=== PATIENT | female | born 1965 | race American Indian/Alaskan Native ===

== ENCOUNTER 2016-12-04 00:19 | Emergency (ER) | payer MEDICARE, MEDICAID ==
[2016-12-04 00:20] VITALS: PULSE 98
[2016-12-04 00:25] VITALS: BMI 32.4
[2016-12-04 00:29] VITALS: TEMP 97.9
--- NOTE | 2016-12-04 01:05 | ED PDOC ---
Arrival/HPI - General Chief Complaint: Pain, Chronic Time Seen by Provider: 12/04/16 00:35 Historian: Patient - History of Present Illness Narrative History of Present Illness (Text): 12/04/16 01:05 A 51 year old female, whose past medical history includes lupus, asthma and cardiomyopathy, presents to the emergency department complaining of body pains. 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 Notes she takes Toradol for pain. Patient also reports water retention but denies any chest pain or other complaints at this time. Symptom Onset: Sudden Symptom Course: Unchanged Activities at Onset: Rest Context: Home Past Medical History - Provider Review Nursing Documentation Reviewed: Yes - Past History Past History: Non-Contributing - Infectious Disease Hx of Infectious Diseases: None - Tetanus Immunization Tetanus Immunization: Unknown - Past Medical History Past Medical History: Non-Contributing - Cardiac Hx Cardiac Disorders: Yes (cardiomyopathy) Hx Congestive Heart Failure: Yes Other/Comment: on Primacor drip - Pulmonary Hx Respiratory Disorders: Yes (pe) Hx Asthma: Yes Hx Pneumonia: Yes (07-26-15) Other/Comment: h/o intubation - Neurological HX Cerebrovascular Accident: Yes (16 ys ago, no residual) - HEENT Hx HEENT Disorder: Yes (eyeglasses, seasonal allergies) - Renal Hx Renal Disorder: No - Endocrine/Metabolic Hx Endocrine Disorders: Yes Hx Systemic Lupus Erythematosus: Yes - Hematological/Oncological Hx Blood Transfusions: Yes Hx Blood Transfusion Reaction: No - Integumentary Hx Dermatological Disorder: No - Musculoskeletal/Rheumatological Hx Falls: Yes (past) - Gastrointestinal Hx Gastroesophageal Reflux: Yes - Genitourinary/Gynecological Hx Sexually Transmitted Diseases: Yes - Psychiatric Hx Anxiety: Yes Hx Depression: Yes Hx Panic Disorder: Yes Hx Substance Use: No - Past Surgical History Past Surgical History: No Previous - Surgical History Other/Comment: breast biopsy. Right upper arm PICC -- on primacor drip 12/04/2016 - Anesthesia Hx Anesthesia Reactions: No Hx Malignant Hyperthermia: No - Suicidal Assessment Feels Threatened In Home Enviroment: No Family/Social History - Physician Review Nursing Documentation Reviewed: Yes Family/Social History: No Known Family HX Smoking Status: Current Some Days Smoker Hx Alcohol Use: No Hx Substance Use: No Hx Substance Use Treatment: No Allergies/Home Meds Allergies/Adverse Reactions: Allergies oxycodone Allergy (Verified 03/04/16 13:12) DIZZINESS tramadol Allergy (Verified 03/04/16 13:12) DIZZINESS Home Medications: Home Meds Medication Instructions Recorded Confirmed Warfarin [Coumadin] 2 mg PO DAILY 11/03/15 12/04/16 ALPRAZolam [Xanax] 1 tab PO DAILY PRN 12/04/16 12/04/16 Albuterol HFA [Ventolin HFA 90 1 puff IH Q4H 12/04/16 12/04/16 mcg/actuation (8 g)] Bumetanide [Bumex] 1 tab PO Q12H 12/04/16 12/04/16 Cholecalciferol [Vitamin D 1000 IU] 1 tab PO DAILY 12/04/16 12/04/16 Famotidine [Pepcid] 1 tab PO DAILY 12/04/16 12/04/16 Folic Acid [Folic Acid] 1 tab PO DAILY 12/04/16 12/04/16 Hydrocortisone [Cortef] 1 tab PO BID 12/04/16 12/04/16 Isoniazid [Niazid] 1 tab PO DAILY 12/04/16 12/04/16 Loratadine [Claritin] 1 tab PO DAILY 12/04/16 12/04/16 Metoprolol Succinate [Toprol XL] 1 tab PO DAILY 12/04/16 12/04/16 Milrinone 20mg/100ml D5W [Primacor 1 ml IV DAILY 12/04/16 12/04/16 20mg/100ml D5W] Review of Systems - Physician Review All systems were reviewed & negative as marked: Yes - Review of Systems Constitutional: Other (body pains) Cardiovascular: absent: Chest Pain Physical Exam Vital Signs Reviewed: Yes Vital Signs Temp Pulse Resp BP Pulse Ox 12/04/16 04:16 67 16 110/70 93 L 12/04/16 00:29 97.9 F 83 20 103/53 L 96 Temperature: Afebrile Blood Pressure: Hypotensive Pulse: Regular Respiratory Rate: Normal Appearance: Positive for: Well-Appearing, Non-Toxic, Comfortable Pain Distress: None Mental Status: Positive for: Alert and Oriented X 3 - Systems Exam Head: Present: Atraumatic, Normocephalic Pupils: Present: PERRL Extroacular Muscles: Present: EOMI Conjunctiva: Present: Normal Mouth: Present: Moist Mucous Membranes Neck: Present: Normal Range of Motion Respiratory/Chest: Present: Clear to Auscultation, Good Air Exchange. No: Respiratory Distress, Accessory Muscle Use Cardiovascular: Present: Regular Rate and Rhythm, Normal S1, S2. No: Murmurs Abdomen: Present: Normal Bowel Sounds. No: Tenderness, Distention, Peritoneal Signs Back: Present: Normal Inspection Upper Extremity: Present: Normal Inspection. No: Cyanosis, Edema Lower Extremity: Present: NORMAL PULSES, Normal ROM, Swelling (slight). No: Edema Neurological: Present: GCS=15, CN II-XII Intact, Speech Normal Skin: Present: Warm, Dry, Normal Color. No: Rashes Psychiatric: Present: Alert, Oriented x 3, Normal Insight, Normal Concentration Medical Decision Making ED Course and Treatment: 12/04/16 01:02 Impression: A 51 year old female with body pains. Differential Diagnosis included but are not limited to: Plan: -- EKG -- chest xray -- labs -- Toradol -- Reassess and disposition Prior Visits: Notes and results from previous visits were reviewed. Patient last reported to the emergency department on 07/02/16 for evaluation of b /l breast pain and swelling. Patient was admitted to hospital. Progress Notes: chest xray: no active disease, interpreted by me. EKG: Ordered, reviewed, and independently interpreted the EKG. Rate : 64 BPM Rhythm : NSR Interpretation : occasional PVCs, nonspecific ST segment changes pt feels better after toradol wants to go home will dc 12/08/16 20:11 - Lab Interpretations Lab Results: 12/04/16 01:24 12/04/16 01:24 Lab Results 12/04/16 01:24: Sodium 140, Chloride 101, Potassium 3.8, Carbon Dioxide 26, Anion Gap 17, BUN 23 H, Creatinine 1.1, Est GFR ( Amer) > 60, Est GFR ( Non-Af Amer) 53, Random Glucose 126 H, Calcium 9.2, Total Bilirubin 0.4, AST 33 , ALT 36, Alkaline Phosphatase 82, Lactate Dehydrogenase 612, Total Creatine Kinase 23 L, Troponin I < 0.01 D, NT-Pro-B Natriuret Pep 3950 H, Total Protein 8.3, Albumin 4.2, Globulin 4.1, Albumin/Globulin Ratio 1.0 L 12/04/16 01:24: pO2 75 H, VBG pH 7.41, VBG pCO2 44.0, VBG HCO3 27.9, VBG Total CO2 29.3 H, VBG O2 Sat (Calc) 97.2 H, VBG Base Excess 2.7 H, VBG Potassium 3.8, Sodium 138.0, Chloride 102.0, Glucose 136 H, Lactate 2.2 H, FiO2 21.0, Venous Blood Potassium 3.8 12/04/16 01:24: WBC 9.2 D, RBC 5.09, Hgb 12.8, Hct 41.1, MCV 80.7, MCH 25.1, MCHC 31.1, RDW 19.2 H, Plt Count 328, MPV 10.5, Gran % 71.6 H, Lymph % (Auto) 19.3 L, [place] % (Auto) 7.9 H, Eos % (Auto) 1.1 L, Baso % (Auto) 0.1, Gran # 6.62 H, Lymph # 1.8, [place] # 0.7 H, Eos # 0.1, Baso # 0.01 I have reviewed the lab results: Yes - RAD Interpretation Radiology Orders: 12/04/16 00:51 CHEST PORTABLE [RAD] Stat - EKG Interpretation Interpreted by ED Physician: Yes Type: 12 lead EKG - Medication Orders Current Medication Orders: Discontinued Medications Ketorolac Tromethamine (Toradol) 30 mg IVP ONCE ONE Stop: 12/04/16 00:52 Last Admin: 12/04/16 01:31 Dose: 30 mg - Scribe Statement The provider has reviewed the documentation as recorded by the Gladis Grewal Provider Scribe Attestation: All medical record entries made by the Gladis were at my direction and personally dictated by me. I have reviewed the chart and agree that the record accurately reflects my personal performance of the history, physical exam, medical decision making, and the department course for this patient. I have also personally directed, reviewed, and agree with the discharge instructions and disposition. Disposition/Present on Arrival - Present on Arrival Any Indicators Present on Arrival: No History of DVT/PE: No History of Uncontrolled Diabetes: No Urinary Catheter: No History of Decub. Ulcer: No History Surgical Site Infection Following: None - Disposition Have Diagnosis and Disposition been Completed?: Yes Diagnosis: Intractable pain Disposition: HOME/ ROUTINE Disposition Time: 04:25 Condition: GOOD Discharge Instructions (ExitCare): Connective Tissue Disorders (ED) Prescriptions: Acetaminophen with Codeine [Tylenol with Codeine #3 Tablet] 1 each PO QID #10 tablet Referrals: Ilia Maxwell MD [Primary Care Provider] - Follow up with primary
[2016-12-04 01:46] LABS: BASO # 0.01 K/mm3 (0.0-2.0); BASO % 0.1 % (0.0-3.0); EOS # 0.1 (0.0-0.7); EOS % 1.1 % (1.5-5.0); GRAN # 6.62 (1.4-6.5); GRAN % 71.6 % (50.0-68.0); HEMOGLOBIN 12.8 gm/dL (12.0-16.0); LYMPH # 1.8 (1.2-3.4); LYMPH % 19.3 % (22.0-35.0); MEAN CELL VOLUME 80.7 fL (80.0-105.0); MEAN CORPUSCULAR HEMOGLOBIN 25.1 pg (25.0-35.0); MEAN CORPUSCULAR HGB CONC 31.1 g/dl (31.0-37.0); MEAN PLATELET VOLUME 10.5 fl (7.0-11.0); MONO # 0.7 (0.1-0.6); MONO % 7.9 % (1.0-6.0); PLATELET COUNT 328 10^3/uL (120.0-450.0); RBC 5.09 10^6/uL (3.5-6.1); RED CELL DISTRIBUTION WIDTH 19.2 % (11.5-14.5); WHITE BLOOD COUNT 9.2 10^3/ul (4.5-11.0)
[2016-12-04 01:49] LABS: VENOUS BLOOD GAS BASE EXCESS 2.7 mmol/L (0.0-2.0); VENOUS BLOOD GAS PO2 75 mm/Hg (30-55); VENOUS BLOOD PH 7.41 (7.32-7.43)
[2016-12-04 02:04] LABS: ALBUMIN 4.2 g/dL (3.0-4.8); ALT/SGPT 36 U/L (7-56); AST/SGOT 33 U/L (15-39); BLOOD UREA NITROGEN 23 mg/dL (7-21); CALCIUM 9.2 mg/dL (8.4-10.5); GFR AFRICAN-AMERICAN > 60; GFR NON-AFRICAN AMERICAN 53
[2016-12-04 02:16] LABS: B-TYPE NATRIURETIC PEPTIDE 3950 pg/mL (0-450)
[2016-12-04 02:17] LABS: TROPONIN I < 0.01 ng/mL
[2016-12-04 04:17] VITALS: BP 110/70; PULSE 67; RESP 16; O2SAT 93
--- NOTE | 2016-12-04 11:17 | RAD ---
HISTORY: Shortness of breath. COMPARISON: No prior. FINDINGS: LUNGS: No active pulmonary disease. PLEURA: No significant pleural effusion identified, no pneumothorax apparent. CARDIOVASCULAR: No radiographic findings to suggest acute or significant cardiovascular disease. Position/ configuration of pacemaker device: Satisfactory. OSSEOUS STRUCTURES: No significant abnormalities. VISUALIZED UPPER ABDOMEN: Normal. OTHER FINDINGS: None. IMPRESSION: No active disease.
--- NOTE | 2016-12-04 20:15 | CARD ---
APPROVED REPORT EKG Measurement Heart [id number] <Conclusion> Sinus rhythm with occasional premature ventricular complexes Left atrial enlargement Left axis deviation Inferior infarct, age undetermined Prolonged QT Abnormal ECG
== END 2016-12-04 04:26 | disposition home or self-care (01) ==
LOC: ED 00:19
DX: R52 Pain, unspecified (principal); I42.9 Cardiomyopathy, unspecified; I50.9 Heart failure, unspecified; M32.9 Systemic lupus erythematosus, unspecified; K21.9 Gastro-esophageal reflux disease without esophagitis
CPT/HCPCS: 71010; 80053; 82550; 82803; 83615; 83880; 84484; 85025; 93005; 96374; 99283; J1885

== ENCOUNTER 2017-01-11 22:32 | Emergency (ER) | payer MEDICARE, MEDICAID ==
[2017-01-11 22:32] VITALS: PULSE 98
[2017-01-11 22:38] VITALS: BMI 32.5
[2017-01-12] MEDS ORDERED: Sodium Chloride 0.9% 1,000 ML IV STA (01:08)
[2017-01-12] MEDS ORDERED: Morphine 4 mg/ml ISec IVP STA (01:08)
--- NOTE | 2017-01-12 01:13 | ED PDOC ---
Arrival/HPI <Demetrius Fernández - Last Filed: 01/12/17 01:42> - General Historian: Patient <Rush Reddy - Last Filed: 01/12/17 02:34> - General Chief Complaint: Medical Clearance Time Seen by Provider: 01/12/17 00:27 - History of Present Illness Narrative History of Present Illness (Text): 01/12/17 01:27 51 y/o female, pmh including asthma/lupus/chf/pneumonia/cardiomyapathy/history of stroke and on coumadin to keep between 2-3 INR, allergic to oxycodone/ tramadol but not allergic to morphine, c/o flare up of the lupus x 1 day. Pt. stated that she get this flared up and pain monthly, no fever or chills, usually gets better with the morphine and fluid, no chest pain or shortness of breath, no coughing, no rash, no weight changes, no other medical or psychological complaints. (Rush Reddy) Past Medical History - Provider Review Nursing Documentation Reviewed: Yes - Past History Past History: Non-Contributing - Infectious Disease Hx of Infectious Diseases: None - Tetanus Immunization Tetanus Immunization: Unknown - Past Medical History Past Medical History: Non-Contributing - Cardiac Hx Cardiac Disorders: Yes (cardiomyopathy) Hx Congestive Heart Failure: Yes Other/Comment: on Primacor drip - Pulmonary Hx Respiratory Disorders: Yes (pe) Hx Asthma: Yes Hx Pneumonia: Yes Other/Comment: h/o intubation - Neurological HX Cerebrovascular Accident: Yes (16 ys ago, no residual) - HEENT Hx HEENT Disorder: Yes (eyeglasses, seasonal allergies) - Renal Hx Renal Disorder: No - Endocrine/Metabolic Hx Endocrine Disorders: Yes Hx Systemic Lupus Erythematosus: Yes - Hematological/Oncological Hx Blood Transfusions: Yes Hx Blood Transfusion Reaction: No - Integumentary Hx Dermatological Disorder: No - Musculoskeletal/Rheumatological Hx Falls: Yes (past) - Gastrointestinal Hx Gastroesophageal Reflux: Yes - Genitourinary/Gynecological Hx Genitourinary Disorders: No - Psychiatric Hx Anxiety: Yes Hx Depression: Yes Hx Panic Disorder: Yes Hx Substance Use: No - Past Surgical History Past Surgical History: No Previous - Surgical History Other/Comment: breast biopsy. Right upper arm PICC -- on primacor drip 12/04/2016 - Anesthesia Hx Anesthesia Reactions: No Hx Malignant Hyperthermia: No - Suicidal Assessment Feels Threatened In Home Enviroment: No <Rush Reddy Q - Last Filed: 01/12/17 02:34> Family/Social History - Physician Review Nursing Documentation Reviewed: Yes Family/Social History: Unknown Family HX Smoking Status: Current Some Days Smoker Hx Alcohol Use: No Hx Substance Use: No Hx Substance Use Treatment: No <Rush Reddy - Last Filed: 01/12/17 02:34> Allergies/Home Meds <Demetrius Fernández - Last Filed: 01/12/17 01:42> <Rush Reddy - Last Filed: 01/12/17 02:34> Allergies/Adverse Reactions: Allergies oxycodone Adverse Reaction (Verified 01/11/17 23:57) DIZZINESS tramadol Adverse Reaction (Verified 01/11/17 23:57) DIZZINESS Home Medications: Home Meds Medication Instructions Recorded Confirmed Warfarin [Coumadin] 2 mg PO DAILY 11/03/15 01/11/17 ALPRAZolam [Xanax] 1 tab PO Q12 12/04/16 01/12/17 Albuterol HFA [Ventolin HFA 90 1 puff IH Q4H PRN 12/04/16 01/12/17 mcg/actuation (8 g)] Bumetanide [Bumex] 1 tab PO Q12H 12/04/16 01/12/17 Cholecalciferol [Vitamin D 1000 IU] 1 tab PO DAILY 12/04/16 01/12/17 Famotidine [Pepcid] 1 tab PO DAILY 12/04/16 01/12/17 Folic Acid [Folic Acid] 1 tab PO DAILY 12/04/16 01/12/17 Hydrocortisone [Cortef] 1 tab PO BID 12/04/16 01/12/17 Isoniazid [Niazid] 1 tab PO DAILY 12/04/16 01/12/17 Loratadine [Claritin] 1 tab PO DAILY 12/04/16 01/12/17 Metoprolol Succinate [Toprol XL] 1 tab PO DAILY 12/04/16 01/12/17 Milrinone 20mg/100ml D5W [Primacor 1 ml IV DAILY 12/04/16 01/12/17 20mg/100ml D5W] Review of Systems - Review of Systems Constitutional: Fatigue. absent: Fevers Eyes: absent: Vision Changes ENT: absent: Hearing Changes Respiratory: absent: SOB, Cough Cardiovascular: absent: Chest Pain Gastrointestinal: absent: Abdominal Pain, Nausea, Vomiting Musculoskeletal: Myalgias. absent: Arthralgias, Back Pain, Neck Pain, Joint Swelling Skin: absent: Rash, Pruritis Neurological: absent: Headache, Dizziness <Rush Reddy - Last Filed: 01/12/17 02:34> Physical Exam - Systems Exam Head: Present: Atraumatic, Normocephalic Pupils: Present: PERRL Extroacular Muscles: Present: EOMI Conjunctiva: Present: Normal Mouth: Present: Moist Mucous Membranes Neck: Present: Normal Range of Motion Respiratory/Chest: Present: Clear to Auscultation, Good Air Exchange. No: Respiratory Distress, Accessory Muscle Use Cardiovascular: Present: Regular Rate and Rhythm, Normal S1, S2. No: Murmurs Abdomen: Present: Normal Bowel Sounds. No: Tenderness, Distention, Peritoneal Signs Back: Present: Normal Inspection Upper Extremity: Present: Normal Inspection. No: Cyanosis, Edema Lower Extremity: Present: Normal Inspection. No: Edema Neurological: Present: GCS=15, CN II-XII Intact, Speech Normal Skin: Present: Warm, Dry, Normal Color. No: Rashes Psychiatric: Present: Alert, Oriented x 3, Normal Insight, Normal Concentration <Rush Reddy - Last Filed: 01/12/17 02:34> Medical Decision Making <Demetrius Fernández - Last Filed: 01/12/17 01:42> - Lab Interpretations I have reviewed the lab results: Yes Interpretation: No clinic. lab abnormalty <Rush Reddy - Last Filed: 01/12/17 02:34> ED Course and Treatment: 01/12/17 01:12 -labs -IV morphine/solumedrol -Observe and reassess 01/12/17 02:33 -Urine hcg negative -UA negative for UTI -Labs show no acute findings -INR between 2-3 which the patient stated that this is the therapeutic level for her -Pt. feels better, will discharge home. (Rush Reddy) - Lab Interpretations Lab Results: 01/12/17 01:51 01/12/17 01:51 Lab Results 01/12/17 01:51: PT 23.9 H, INR 2.21 H, APTT 33.8 H 01/12/17 01:51: Sodium 139, Potassium Pending, Chloride Pending, Carbon Dioxide Pending, Anion Gap Pending, BUN Pending, Creatinine Pending, Est GFR ( Amer) Pending, Est GFR (Non-Af Amer) Pending, Random Glucose Pending, Calcium Pending, Magnesium Pending, Total Bilirubin Pending, AST Pending, ALT Pending, Alkaline Phosphatase Pending, Total Protein Pending, Albumin Pending, Globulin Pending, Albumin/Globulin Ratio Pending 01/12/17 01:51: WBC 6.4 D, RBC 5.02, Hgb 12.5, Hct 40.4, MCV 80.5, MCH 24.9 L, MCHC 30.9 L, RDW 20.7 H, Plt Count 247, MPV 10.7, Gran % 73.8 H, Lymph % (Auto) 18.2 L, [place] % (Auto) 7.2 H, Eos % (Auto) 0.5 L, Baso % (Auto) 0.3, Gran # 4.71 , Lymph # 1.2, [place] # 0.5, Eos # 0.0, Baso # 0.02 01/12/17 00:45: Urine Color Yellow, Urine Appearance Clear, Urine pH 6.0, Ur Specific [place] 1.015, Urine Protein Negative, Urine Glucose (UA) Negative, Urine Ketones Negative, Urine Blood Large H, Urine Nitrate Negative, Urine Bilirubin Negative, Urine Urobilinogen 0.2, Ur Leukocyte Esterase Negative, Urine RBC 0 - 2, Urine WBC 0 - 2, Ur Epithelial Cells 1 - 3, Urine Bacteria Small - Medication Orders Current Medication Orders: Discontinued Medications Sodium Chloride (Sodium Chloride 0.9%) 1,000 mls @ 999 mls/hr IV .Q1H1M STA Stop: 01/12/17 02:08 Last Admin: 01/12/17 01:50 Dose: 999 mls/hr Methylprednisolone (Solu-Medrol) 125 mg IVP STAT STA Stop: 01/12/17 01:09 Last Admin: 01/12/17 01:50 Dose: 125 mg Morphine Sulfate (Morphine) 4 mg IVP STAT STA Stop: 01/12/17 01:09 Last Admin: 01/12/17 01:49 Dose: 4 mg - PA / CDL B DRIVER / Resident Statement ASHOK has reviewed & agrees with the documentation as recorded. ASHOK has examined the patient and agrees with the treatment plan. <Demetrius Fernández - Last Filed: 01/12/17 01:42> - PA / CDL B DRIVER / Resident Statement ASHOK has reviewed & agrees with the documentation as recorded. <Rush Reddy - Last Filed: 01/12/17 02:34> Disposition/Present on Arrival <Demetrius Fernández - Last Filed: 01/12/17 01:42> - Present on Arrival Any Indicators Present on Arrival: No History of DVT/PE: No History of Uncontrolled Diabetes: No Urinary Catheter: No History of Decub. Ulcer: No History Surgical Site Infection Following: None - Disposition Have Diagnosis and Disposition been Completed?: Yes Disposition Time: 02:19 Patient Plan: Discharge <Rush Reddy - Last Filed: 01/12/17 02:34> - Disposition Diagnosis: Fatigue Disposition: HOME/ ROUTINE Condition: IMPROVED Additional Instructions: Discharge home with education on bed rest, stay hydrated, take tylenol at home for pain as needed, follow up with your own pmd within 2 days, return to the ER for any new or worsening signs or symptoms. Referrals: Ilia Maxwell MD [Primary Care Provider] - Follow up with primary Forms: [employer] ([place]), WORK NOTE
[2017-01-12 01:17] LABS: URINE BILIRUBIN NEGATIVE (NEGATIVE); URINE BLOOD LARGE (NEGATIVE); URINE GLUCOSE (UA) NEGATIVE (NEGATIVE); URINE LEUKOCYTE ESTERASE NEGATIVE Leu/uL (NEGATIVE); URINE NITRATE NEGATIVE (NEGATIVE); URINE PROTEIN NEGATIVE mg/dL (<30 mg/dL); URINE UROBILINOGEN 0.2 E.U./dL (<1 E.U./dL)
[2017-01-12 01:18] LABS: URINE APPEARANCE CLEAR (CLEAR); URINE COLOR YELLOW (YELLOW)
[2017-01-12 01:29] LABS: URINE BACTERIA SMALL (NEG); URINE RBC 0 - 2 /hpf (0-2); URINE WBC 0 - 2 /hpf (0-6)
[2017-01-12 02:14] LABS: BASO # 0.02 K/mm3 (0.0-2.0); BASO % 0.3 % (0.0-3.0); EOS % 0.5 % (1.5-5.0); GRAN # 4.71 (1.4-6.5); GRAN % 73.8 % (50.0-68.0); HEMOGLOBIN 12.5 g/dL (12.0-16.0); LYMPH # 1.2 (1.2-3.4); LYMPH % 18.2 % (22.0-35.0); MEAN CELL VOLUME 80.5 fl (80.0-105.0); MEAN CORPUSCULAR HEMOGLOBIN 24.9 pg (25.0-35.0); MEAN CORPUSCULAR HGB CONC 30.9 g/dl (31.0-37.0); MEAN PLATELET VOLUME 10.7 fl (7.0-11.0); MONO # 0.5 (0.1-0.6); MONO % 7.2 % (1.0-6.0); PLATELET COUNT 247 10^3/uL (120.0-450.0); RBC 5.02 10^6/uL (3.5-6.1); RED CELL DISTRIBUTION WIDTH 20.7 % (11.5-14.5); WHITE BLOOD COUNT 6.4 10^3/ul (4.5-11.0)
[2017-01-12 02:19] LABS: INR 2.21 (0.93-1.08); PARTIAL THROMBOPLASTIN TIME 33.8 Seconds (23.7-30.8); PROTHROMBIN TIME 23.9 Seconds (9.9-11.8)
[2017-01-12 02:30] LABS: ALBUMIN 3.8 g/dL (3.0-4.8); BLOOD UREA NITROGEN 20 mg/dL (7-21); CALCIUM 8.4 mg/dL (8.4-10.5); GFR AFRICAN-AMERICAN > 60; GFR NON-AFRICAN AMERICAN 59
[2017-01-12 02:31] LABS: ALT/SGPT 38 U/L (7-56); AST/SGOT 39 U/L (15-39)
[2017-01-12 02:59] VITALS: BP 117/54; PULSE 76; RESP 16; O2SAT 99
== END 2017-01-12 03:19 | disposition home or self-care (01) ==
LOC: ED 22:32
DX: R53.83 Other fatigue (principal); M32.9 Systemic lupus erythematosus, unspecified; I50.9 Heart failure, unspecified; I42.9 Cardiomyopathy, unspecified
CPT/HCPCS: 80053; 81001; 83735; 85025; 85610; 85730; 96361; 96374; 96375; 99282; J2270; J2930; J7040

== ENCOUNTER 2017-02-17 17:18 | Observation (INO) | payer MEDICARE, MEDICAID ==
[2017-02-17 17:18] VITALS: PULSE 98
[2017-02-17 17:25] VITALS: BMI 32.1
--- NOTE | 2017-02-17 17:42 | ED PDOC ---
Arrival/HPI - General Historian: Patient - History of Present Illness Time/Duration: < week (3 days ) Quality: Aching, Cramping Severity Level: 6 Activities at Onset: Rest Context: Home - General Chief Complaint: Abdominal Pain Time Seen by Provider: 02/17/17 17:19 - History of Present Illness Narrative History of Present Illness (Text): 02/17/17 18:02 This is a 51Y F with PMH lupus, cardiomyopathy on primacor drip, CVA, fibroids came to the Emergency department with abdominal pain and vaginal bleeding x 3 days. The pain is described as cramping/aching in the LLQ and RLQ of her abdomen and radiates down to her legs. Patient states she is sandro-menopausal so her periods are very irregular. At times they are heavy and other times she spots. She reports she has used 10 pads in the past 24hrs. Prior to this she had periods that would last 7 days. She is sexually active with the same partner who she has been with for many years and uses protection. The patient denies n/v/d, numbness/tingling, fever/chills, dysuria or hematuria. She saw her pleasure craft sailor (Dr. Darling) yesterday who performed a pap smear. Of note, she was at [facility] 3 weeks ago for pneumonia and received the pneumovax. She feels shortness of breath today as if she cannot catch her breath. She denies cough, leg edema or sick contacts. (Milady Hinojosa) Past Medical History - Provider Review Nursing Documentation Reviewed: Yes - Travel History Have you recently traveled outside [place] w/in the past 3 mons?: No - Infectious Disease Hx of Infectious Diseases: None - Tetanus Immunization Tetanus Immunization: Unknown - Past Medical History Past Medical History: Non-Contributing - Cardiac Hx Cardiac Disorders: Yes (cardiomyopathy) Hx Congestive Heart Failure: Yes Other/Comment: on Primacor drip - Pulmonary Hx Respiratory Disorders: Yes (pe) Hx Asthma: Yes Hx Pneumonia: Yes Other/Comment: h/o intubation - Neurological HX Cerebrovascular Accident: Yes (16 ys ago, no residual) - HEENT Hx HEENT Disorder: Yes (eyeglasses, seasonal allergies) - Renal Hx Renal Disorder: No - Endocrine/Metabolic Hx Endocrine Disorders: Yes Hx Systemic Lupus Erythematosus: Yes - Hematological/Oncological Hx Blood Transfusions: Yes Hx Blood Transfusion Reaction: No - Integumentary Hx Dermatological Disorder: No - Musculoskeletal/Rheumatological Hx Falls: Yes (past) - Gastrointestinal Hx Gastroesophageal Reflux: Yes - Genitourinary/Gynecological Hx Genitourinary Disorders: No - Psychiatric Hx Anxiety: Yes Hx Depression: Yes Hx Panic Disorder: Yes Hx Substance Use: No - Past Surgical History Past Surgical History: No Previous - Surgical History Other/Comment: breast biopsy. Right upper arm PICC -- on primacor drip 12/04/2016 - Anesthesia Hx Anesthesia Reactions: No Hx Malignant Hyperthermia: No - Suicidal Assessment Feels Threatened In Home Enviroment: No Family/Social History - Physician Review Nursing Documentation Reviewed: Yes Family/Social History: CVA/TIA, Hypertension Smoking Status: Current Some Days Smoker Hx Alcohol Use: No Hx Substance Use: No Hx Substance Use Treatment: No Allergies/Home Meds Allergies/Adverse Reactions: Allergies oxycodone Adverse Reaction (Verified 01/11/17 23:57) DIZZINESS tramadol Adverse Reaction (Verified 02/17/17 17:24) DIZZINESS Home Medications: Home Meds Medication Instructions Recorded Confirmed Warfarin [Coumadin] 2 mg PO DAILY 11/03/15 01/12/17 ALPRAZolam [Xanax] 1 tab PO Q12 12/04/16 01/12/17 Albuterol HFA [Ventolin HFA 90 1 puff IH Q4H PRN 12/04/16 01/12/17 mcg/actuation (8 g)] Bumetanide [Bumex] 1 tab PO Q12H 12/04/16 01/12/17 Famotidine [Pepcid] 1 tab PO DAILY 12/04/16 01/12/17 Folic Acid [Folic Acid] 1 tab PO DAILY 12/04/16 01/12/17 Hydrocortisone [Cortef] 1 tab PO BID 12/04/16 01/12/17 Isoniazid [Niazid] 1 tab PO DAILY 12/04/16 01/12/17 Loratadine [Claritin] 1 tab PO DAILY 12/04/16 01/12/17 Metoprolol Succinate [Toprol XL] 1 tab PO DAILY 12/04/16 01/12/17 Milrinone 20mg/100ml D5W [Primacor 1 ml IV DAILY 12/04/16 01/12/17 20mg/100ml D5W] Cyanocobalamin (Vitamin B-12) 100 mcg PO DAILY 02/17/17 02/17/17 [Vitamin B-12] Review of Systems - Physician Review All systems were reviewed & negative as marked: Yes - Review of Systems Constitutional: Fatigue. absent: Fevers Respiratory: SOB. absent: Cough, Sputum, Wheezing Cardiovascular: Normal. absent: Chest Pain, Palpitations, Edema Gastrointestinal: Abdominal Pain (RLQ, LLQ). absent: Diarrhea, Nausea, Vomiting Genitourinary Female: Vaginal Bleeding. absent: Dysuria, Frequency, Vaginal Discharge Musculoskeletal: Normal. absent: Arthralgias Neurological: Normal. absent: Headache, Dizziness Psychiatric: Normal. absent: Anxiety, Depression Physical Exam Vital Signs Reviewed: Yes Temperature: Afebrile Blood Pressure: Normal Pulse: Bradycardic Respiratory Rate: Normal Appearance: Positive for: Well-Appearing, Non-Toxic, Comfortable Pain Distress: None Mental Status: Positive for: Alert and Oriented X 3 - Systems Exam Head: Present: Atraumatic, Normocephalic Pupils: Present: PERRL Extroacular Muscles: Present: EOMI Conjunctiva: Present: Normal Mouth: Present: Moist Mucous Membranes Neck: Present: Normal Range of Motion Respiratory/Chest: Present: Clear to Auscultation, Good Air Exchange. No: Respiratory Distress, Accessory Muscle Use Cardiovascular: Present: Regular Rate and Rhythm, Normal S1, S2. No: Murmurs Abdomen: Present: Tenderness (RLQ, LLQ and suprapubic), Normal Bowel Sounds. No : Distention, Peritoneal Signs, Rebound, Guarding, Hernias, Mass/Organomegaly Back: Present: Normal Inspection Upper Extremity: Present: Normal Inspection. No: Cyanosis, Edema Lower Extremity: Present: Normal Inspection. No: Edema Neurological: Present: GCS=15, CN II-XII Intact, Speech Normal Skin: Present: Warm, Dry, Normal Color. No: Rashes Psychiatric: Present: Alert, Oriented x 3, Normal Insight, Normal Concentration Vital Signs Temp Pulse Resp BP Pulse Ox 02/17/17 17:43 97.9 F 56 L 16 115/66 100 02/17/17 17:40 97.9 F 56 L 16 115/66 100 Medical Decision Making Re-evaluation Time: 19:16 Reassessment Condition: Improved - Transfer of Care Patient signed out to Dr:: Zelikson Pending Labs:: CBC, CMP, Coag ED Course and Treatment: Seen and examined with resident. 51 y/o F p/w lower abdominal pain and vaginal bleeding, states feels similar to her pain when getting her menstrual period. On exam, lower abdominal tenderness without guarding or rebound. (Omer Sandoval) 02/17/17 18:00 Impression: This is a 51Y F with PMH lupus, cardiomyopathy on primacor drip, CVA, fibroids came to the Emergency department with abdominal pain and vaginal bleeding x 3 days. Plan: -- CBC, CMP, INR/PT, U/A -- Toradol -- CXR -- Reassess and disposition Prior Visits: Notes and results from previous visits were reviewed. Progress Notes: (Milady Hinojosa) - Lab Interpretations Lab Results: Lab Results 02/17/17 18:00: Urine Color Light yellow, Urine Appearance Clear, Urine pH 6.0, Ur Specific [place] 1.010, Urine Protein Negative, Urine Glucose (UA) Negative, Urine Ketones Negative, Urine Blood Negative, Urine Nitrate Negative, Urine Bilirubin Negative, Urine Urobilinogen 0.2, Ur Leukocyte Esterase Negative - RAD Interpretation Radiology Orders: 02/17/17 17:54 CHEST TWO VIEWS (PA/LAT) [RAD] Stat - Medication Orders Current Medication Orders: Discontinued Medications Ketorolac Tromethamine (Toradol) 30 mg IVP STAT STA Stop: 02/17/17 17:55 Disposition/Present on Arrival - Present on Arrival Any Indicators Present on Arrival: Yes History of DVT/PE: Yes History of Uncontrolled Diabetes: No Urinary Catheter: No History Surgical Site Infection Following: None - Disposition Have Diagnosis and Disposition been Completed?: No Disposition Time: 19:16 - Disposition Diagnosis: Abdominal pain Condition: FAIR
[2017-02-17 18:08] LABS: URINE BILIRUBIN NEGATIVE (NEGATIVE); URINE BLOOD NEGATIVE (NEGATIVE); URINE GLUCOSE (UA) NEGATIVE (NEGATIVE); URINE KETONE NEGATIVE (NEGATIVE); URINE LEUKOCYTE ESTERASE NEGATIVE Leu/uL (NEGATIVE); URINE PROTEIN NEGATIVE mg/dL (<30 mg/dL); URINE UROBILINOGEN 0.2 E.U./dL (<1 E.U./dL)
[2017-02-17 18:11] LABS: URINE APPEARANCE CLEAR (CLEAR); URINE COLOR LIGHT YELLOW (YELLOW)
[2017-02-17 19:52] LABS: MEAN CELL VOLUME 83.1 fl (80.0-105.0); MEAN CORPUSCULAR HEMOGLOBIN 25.6 pg (25.0-35.0); MEAN CORPUSCULAR HGB CONC 30.8 g/dl (31.0-37.0); MEAN PLATELET VOLUME 10.7 fl (7.0-11.0); RED CELL DISTRIBUTION WIDTH 19.4 % (11.5-14.5)
--- NOTE | 2017-02-17 19:58 | ED PDOC ---
Physical Exam Vital Signs Reviewed: Yes Vital Signs Temp Pulse Resp BP Pulse Ox 02/17/17 19:34 60 17 118/70 98 02/17/17 17:43 97.9 F 56 L 16 115/66 100 02/17/17 17:40 97.9 F 56 L 16 115/66 100 Temperature: Afebrile Blood Pressure: Normal Pulse: Bradycardic Respiratory Rate: Normal Appearance: Positive for: Well-Appearing Pain Distress: None Mental Status: Positive for: Alert and Oriented X 3 Medical Decision Making ED Course and Treatment: 02/17/17 19:54 51yo female with vaginal bleeding and lower abdominal pain described as cramping. Saw her STEWARD/STEWARD[employer] SECOND Dr. Darling yesterday for a pap smear. 02/17/17 21:39 US shows fibroid uterus pt states she has MCDERMOTT which is different from her previous pt is on milrinone drip has been having intermittent vaginal bleeding, although states she is not bleeding now, and Hb 11.4 which is slightly lower than her usual. 02/17/17 21:[address] Costello, accepted observation to hospitalist service pt aware of and agrees with plan - Lab Interpretations Lab Results: 02/17/17 19:41 02/17/17 19:41 Lab Results 02/17/17 19:45: PT 17.8 H, INR 1.65 H 02/17/17 19:41: Sodium 146, Potassium 4.1, Chloride 105, Carbon Dioxide 31, Anion Gap 14, BUN 13, Creatinine 0.8, Est GFR ( Amer) > 60, Est GFR (Non- Af Amer) > 60, Random Glucose 97, Calcium 8.5, Total Bilirubin 0.3, AST 27, ALT 29, Alkaline Phosphatase 67, Total Protein 7.2, Albumin 3.8, Globulin 3.5, Albumin/Globulin Ratio 1.1 02/17/17 19:41: WBC 7.0, RBC 4.45, Hgb 11.4 L, Hct 37.0, MCV 83.1, MCH 25.6, MCHC 30.8 L, RDW 19.4 H, Plt Count 211, MPV 10.7 02/17/17 18:00: Urine Color Light yellow, Urine Appearance Clear, Urine pH 6.0, Ur Specific [place] 1.010, Urine Protein Negative, Urine Glucose (UA) Negative, Urine Ketones Negative, Urine Blood Negative, Urine Nitrate Negative, Urine Bilirubin Negative, Urine Urobilinogen 0.2, Ur Leukocyte Esterase Negative - RAD Interpretation Radiology Orders: 02/17/17 17:54 CHEST TWO VIEWS (PA/LAT) [RAD] Stat 02/17/17 19:56 TRANSVAGINAL [US] Stat - Medication Orders Current Medication Orders: Discontinued Medications Ketorolac Tromethamine (Toradol) 30 mg IVP STAT STA Stop: 02/17/17 17:55 Last Admin: 02/17/17 19:20 Dose: 30 mg Disposition/Present on Arrival - Present on Arrival Any Indicators Present on Arrival: Yes History of DVT/PE: Yes History of Uncontrolled Diabetes: No Urinary Catheter: No History of Decub. Ulcer: No History Surgical Site Infection Following: None - Disposition Have Diagnosis and Disposition been Completed?: Yes Diagnosis: Dyspnea Disposition: HOSPITALIZED Disposition Time: 21:44 Patient Plan: Observation Patient Problems: Current Active Problems Problem Status Onset Abdominal pain Acute Condition: FAIR Forms: [employer] (Peruvian)
[2017-02-17 20:02] LABS: ALB/GLOB RATIO 1.1 (1.1-1.8); ALKALINE PHOSPHATASE 67 U/L (38-126); ALT/SGPT 29 U/L (7-56); AST/SGOT 27 U/L (14-36); BILIRUBIN,TOTAL 0.3 mg/dL (0.2-1.3); BLOOD UREA NITROGEN 13 mg/dL (7-21); CALCIUM 8.5 mg/dL (8.4-10.5); CARBON DIOXIDE 31 mmol/L (21-33); CHLORIDE 105 mmol/L (98-107); GFR AFRICAN-AMERICAN > 60; GLUCOSE,RANDOM 97 mg/dL (70-110); POTASSIUM 4.1 mmol/L (3.6-5.0); SODIUM 146 mmol/L (132-148); TOTAL PROTEIN 7.2 g/dL (5.8-8.3)
[2017-02-17 20:02] LABS: INR 1.65 (0.93-1.08)
--- NOTE | 2017-02-17 21:22 | US ---
EXAM: US Pelvis Complete, Transabdominal CLINICAL HISTORY: 51 years old, female; Pain; Pelvic pain; Additional info: Vaginal bleeding, fibroids TECHNIQUE: Real-time transabdominal pelvic ultrasound (complete) with image documentation. COMPARISON: There are no prior studies for comparison. FINDINGS: Uterus: The uterus is anteflexed. The uterus measures approximately 6.2 x 3.8 x 4 cm. endometrium measures proximally 4.7 mm in width. Right ovary: Right ovary could not be identified. There are no right adnexal masses Left ovary: Left ovary could not be identified. There are no left adnexal masses Free fluid: There is no free fluid. Bladder: Bladder is incompletely distended which limits evaluation of bladder and pelvis. IMPRESSION: Limited by body habitus and incomplete bladder distention, normal-sized uterus, nonvisualization the ovaries EXAM: US Pelvis, Transvaginal EXAM DATE/TIME: 02/17/2017 7:56 PM CLINICAL HISTORY: 51 years old, female; Pain; Pelvic pain; Additional info: Vaginal bleeding, fibroids TECHNIQUE: Real-time transvaginal pelvic ultrasound (complete) with image documentation. Transvaginal imaging was used for better evaluation of the endometrium and adnexa. COMPARISON: There are no prior studies for comparison. FINDINGS: Uterus: Endometrium measures approximate 4.7 mm in width. There is a 1.4 x 2.4 x 1.7 cm anterior fibroid. There is a 0.8 x 0.4 x 0.9 cm posterior calcification. There is a 0.6 right 0.8 x 0.8 cm posterior fibroid. Right ovary: Right ovary measures approximately 2.41 x 1.63 x 1.44 cm. There are multiple small follicles. There is intraovarian blood flow. Left ovary: Left ovary could not be identified. There is a large amount of bowel gas obscuring the left adnexa. There are no left adnexal masses. Free fluid: There is no free fluid. Bladder: Bladder is empty IMPRESSION: Fibroid uterus; normal right ovary; nonvisualization left ovary due to bowel gas
[2017-02-17 22:16] LABS: TROPONIN I 0.01 ng/mL
[2017-02-17] MEDS ORDERED: Albuterol-Ipratrop 3 mg / 0.5 (3 ml) UD IH PRN (23:15)
[2017-02-17] MEDS ORDERED: Milrinone 20mg/100ml D5W 100 ML IV PRN (23:22)
[2017-02-18] MEDS: Morphine 2 mg/ml ISec IVP PRN ×2 (00:06→05:06)
--- NOTE | 2017-02-18 01:11 | CP.PCM.PN ---
Subjective - Date & Time of Evaluation Date of Evaluation: 02/18/17 Time of Evaluation: 01:11 - Subjective Subjective: # 24 angiocath was inserted in left hand. Objective - Vital Signs/Intake and Output Vital Signs (last 24 hours): Temp Pulse Resp BP Pulse Ox 98.9 F 61 17 115/75 98 02/17/17 23:57 02/17/17 23:57 02/17/17 23:57 02/18/17 00:05 02/17/17 23:57 - Medications Medications: Current Medications Acetaminophen (Tylenol 325mg Tab) 650 mg PO Q4 PRN PRN Reason: Fever >100.4 F Albuterol/Ipratropium (Duoneb 3 Mg/0.5 Mg (3 Ml) Ud) 3 ml IH Q2H PRN PRN Reason: Shortness of Breath Bumetanide (Bumex) 1 mg PO Q12H [facility] Last Admin: 02/18/17 00:41 Dose: Not Given Cyanocobalamin (Vitamin B12 100 Mcg Tab) 100 mcg PO DAILY [facility] Docusate Sodium (Colace) 100 mg PO DAILY [facility] Folic Acid (Folic Acid) 1 mg PO DAILY [facility] Hydrocortisone (Cortef) 20 mg PO BID [facility] Last Admin: 02/18/17 00:41 Dose: Not Given Milrinone Lactate/Dextrose (Primacor 20mg/100ml D5w) 100 mls @ 12.315 mls/hr IV .Q8H8M PRN; Protocol; 0.5 MCG/KG/MIN PRN Reason: TITRATE PER MD ORDER Ketorolac Tromethamine (Toradol) 15 mg IVP Q4H PRN PRN Reason: Pain, moderate (4-7) Loratadine (Claritin) 10 mg PO DAILY [facility] Metoprolol Succinate (Toprol Xl) 25 mg PO DAILY [facility] Morphine Sulfate (Morphine) 2 mg IVP Q4H PRN PRN Reason: Pain, severe (8-10) Last Admin: 02/18/17 00:06 Dose: 2 mg Warfarin Sodium (Coumadin) 0.5 mg PO ONCE ONE PRN Reason: Protocol Stop: 02/18/17 23:05 Last Admin: 02/18/17 00:42 Dose: Not Given Warfarin Sodium (Coumadin) 2 mg PO 1800 [facility] - Labs Labs: PT 17.8 Seconds (9.9-11.8) H 02/17/17 19:45 INR 1.65 (0.93-1.08) H 02/17/17 19:45
--- NOTE | 2017-02-18 03:01 | CP.PCM.HP ---
<MILDRED ROBINS - Last Filed: 02/18/17 03:41> History of Present Illness - History of Present Illness History of Present Illness: Adánsergio Arlet DO PGY1 - Internal Medicine H&P CC: Pelvic pain, SOB 51yo F with PMH of SLE, asthma, PE, CHF 2/2 cardiomyopathy s/p ICD and pacemaker , B/L breast biopsy, non-malignant breast calcifications B/L, GERD, CVA x 2, positive PPD, and fibroids presents for pelvic pain and SOB which she has had intermittently for the past three days. SOB is persistent, not worsened or improved by anything in particular. Denies cough, CP, nasal congestion, REEDER. Pain is constant, sharp, 9/10 in severity, started again this morning, she woke up with it. She tried tylenol at home, which did not help. Pain improved to 7/ 10 after receiving toradol in the ER. Pain does not radiate. She has had this pain before, usually associated with her periods, but it seems worse this time. Patient reports that she is perimenopausal, and has intermittent, irregular bleeding and spotting, and has been bleeding irregularly, but not excessively, the past three days - she required three pads in the past day. She is also complaining of back pain, radiating down to her legs, occasionally to ankles and toes. Back pain is intermittent, worsens with standing, improves with sitting or leaning forward. She has had this back pain for years, though recently worsened. She denies F/C, N/V/D/C, urinary or bowel incontinence, night sweats, dysuria, hematuria. 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 Alejandre ROS: Constitutional: pt denies fever, chills, generalized weakness ENT: pt denies dysphagia, otalgia, hearing deficit, rhinorrhea Eyes: pt denies sudden loss of vision, diplopia, blurred vision MSK: +Back pain pt denies muscle stiffness, joint pain, extremity cramping Cardio: +SOB pt denies heart murmur, CP Pulm: pt denies cough, hemoptysis, wheeze GI: +Abdominal pain pt denies loss of appetite, constipation, melena, n/v/d : pt denies burning on urination, urinary frequency, hematuria, urinary urgency Neuro: pt denies paresis, paresthesia, dizziness, reeder, numbness, tingling Derm: pt denies skin changes, lesions, nail changes Endo: pt denies intolerance to heat/cold, diaphoresis, night sweats, polydipsia Psych: pt denies anxiety, depression, mood changes Present on Admission - Present on Admission Any Indicators Present on Admission: Yes History of DVT/PE: Yes Past Patient History - Infectious Disease Hx of Infectious Diseases: None - Tetanus Immunizations Tetanus Immunization: Unknown - Past Medical History & Family History Past Medical History?: Yes - Past Social History Smoking Status: Current Some Days Smoker - CARDIAC Hx Cardiac Disorders: Yes (cardiomyopathy) Hx Congestive Heart Failure: Yes Other/Comment: on Primacor drip - PULMONARY Hx Respiratory Disorders: Yes (pe) Hx Asthma: Yes Hx Pneumonia: Yes Other/Comment: h/o intubation - NEUROLOGICAL HX Cerebrovascular Accident: Yes (16 ys ago, no residual) - HEENT Hx HEENT Problems: Yes (eyeglasses, seasonal allergies) - RENAL Hx Chronic Kidney Disease: No - ENDOCRINE/METABOLIC Hx Endocrine Disorders: Yes Hx Systemic Lupus Erythematosus: Yes - HEMATOLOGICAL/ONCOLOGICAL Hx Blood Transfusions: Yes Hx Blood Transfusion Reaction: No - INTEGUMENTARY Hx Dermatological Problems: No - MUSCULOSKELETAL/RHEUMATOLOGICAL Hx Falls: Yes (past) - GASTROINTESTINAL Hx Gastroesophageal Reflux: Yes - GENITOURINARY/GYNECOLOGICAL Hx Genitourinary Disorders: No - PSYCHIATRIC Hx Anxiety: Yes Hx Depression: Yes Hx Panic Symptoms: Yes Hx Substance Use: No - SURGICAL HISTORY Other/Comment: breast biopsy. Right upper arm PICC -- on primacor drip 12/04/2016 - ANESTHESIA Hx Anesthesia Reactions: No Hx Malignant Hyperthermia: No Meds Allergies/Adverse Reactions: Allergies Allergy/AdvReac Type Severity Reaction Status Date / Time oxycodone AdvReac DIZZINESS Verified 01/11/17 23:57 tramadol AdvReac DIZZINESS Verified 02/17/17 17:24 Physical Exam - Constitutional Appears: Non-toxic, No Acute Distress - Head Exam Head Exam: ATRAUMATIC, NORMOCEPHALIC - Eye Exam Eye Exam: EOMI, Normal appearance, PERRL - ENT Exam ENT Exam: Mucous Membranes Moist - Neck Exam Neck exam: Negative for: Lymphadenopathy, Thyromegaly - Respiratory Exam Respiratory Exam: Clear to Auscultation Bilateral, NORMAL BREATHING PATTERN. absent: Rales, Rhonchi, Wheezes - Cardiovascular Exam Cardiovascular Exam: RRR, +S1, +S2 - GI/Abdominal Exam GI & Abdominal Exam: Normal Bowel Sounds, Soft Additional comments: moderate b/l LQ and suprapubic tenderness - Extremities Exam Extremities exam: Negative for: calf tenderness, pedal edema Additional comments: PICC line in R antecubital fossa, milrinone pump at bedside - Back Exam Back exam: muscle spasm, paraspinal tenderness (L3-S1, b/l). absent: vertebral tenderness Additional comments: Indeterminate SLR b/l, illicits posterior thigh and calf pain at 45 degrees, but no back pain - Neurological Exam Neurological exam: Alert, CN II-XII Intact, Oriented x3 - Psychiatric Exam Psychiatric exam: Normal Affect, Normal Mood - Skin Skin Exam: Dry, Intact Results - Vital Signs Recent Vital Signs: Last Vital Signs Temp 98.9 F 02/17/17 23:57 Pulse 61 02/17/17 23:57 Resp 17 02/17/17 23:57 BP 115/75 02/18/17 00:05 Pulse Ox 98 02/17/17 23:57 - Labs Result Diagrams: 02/17/17 19:41 02/17/17 19:41 Assessment & Plan - Assessment and Plan (Free Text) Assessment: 51 F with extensive PMH, specifically significant for SLE, PE, asthma, 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 Plan: 1. Pelvic pain - Patient has b/l pelvic pain, which she has had in the past, though currently worse than prior incidences. Likely 2/2 dysmenorrhea 2/2 fibroids - Transvaginal US in ER significant for normal endometrial thickness, and two fibroids - Patient is hemodynamically stable, H/H stable - Tylenol, Toradol, and Morphine for mild/mod/sev pain; colace to prevent constipation 2. SOB - Likely 2/2 deconditioning vs mild exacerbation of severe CHF vs asthma exacerbation vs PE - CXR in ER appears to show mild vascular congestion; pending official read - Patient has history of CHF with LVEF 11% on echo 03/05/2016 - BNP 2750, which is actually slightly better than her baseline - Trop 0.01, patient not complaining of CP, no EKG changes - Patient is on continuous milrinone infusion at home - Given Lasix 20mg once - Duonebs Q2 PRN - Continue milrinone, bumex, loratadine, metoprolol - b/l LE venous duplex ordered to r/o DVT - Cardio (Robert) consulted, appreciate recs 3. Back pain radiating to b/l LE - Likely 2/2 spinal stenosis vs chronic musculoskeletal low back pain, less likely DVT - Lumbar spine CT w/o contrast ordered - B12 level ordered to r/o deficiency as cause of neuropathic pain - Patient reports pain and tenderness in b/l calf; b/l LE venous duplex ordered to r/o DVT considering history of PE and subtherapeutic INR - Pain control as above 4. h/o PE and CVA - Patient on Coumadin 2mg daily at home - Subtherapeutic INR on presentation - Ordered 0.5 mg coumadin once - Recheck daily INR and adjust coumadin as indicated 5. h/o SLE - No acute flare at this time - Continue home hydrocortisone GI/DVT Ppx: Coumadin covers for DVT, protonix for GI Patient seen, discussed, and examined with attending <Karon Costello - Last Filed: 02/18/17 06:30> Results - Vital Signs Recent Vital Signs: Last Vital Signs Temp 97.7 F 02/18/17 06:24 Pulse 72 02/18/17 06:24 Resp 17 02/18/17 06:24 BP 104/64 02/18/17 06:24 Pulse Ox 96 02/18/17 06:24 - Labs Result Diagrams: 02/17/17 19:41 02/17/17 19:41 Attending/Attestation - Attestation I have personally seen and examined this patient.: Yes I have fully participated in the care of the patient.: Yes I have reviewed all pertinent clinical information: Yes Notes (Text): 02/18/17 06:29 Patient was seen when she was in bed # 12 in the ER. Agree with history, physical examination, assessment and plan.
--- NOTE | 2017-02-18 08:30 | RAD ---
HISTORY: SOB COMPARISON: Comparison is made to 12/04/2016 TECHNIQUE: Chest PA and lateral FINDINGS: LUNGS: There is a new opacity seen at the mid to upper right lung. Otherwise no significant interval change in the lungs since the previous exam. PLEURA: No significant pleural effusion identified. No pneumothorax apparent. CARDIOVASCULAR: Cardiomegaly is again noted. Left-sided pacemaker/ AICD is again seen in place. There is right-sided PICC line in place. OSSEOUS STRUCTURES: No significant abnormalities. VISUALIZED UPPER ABDOMEN: Normal. OTHER FINDINGS: None. IMPRESSION: New heterogeneous opacity at the mid to upper right lung may represent a pneumonia. Otherwise no interval change.
[2017-02-18] MEDS ORDERED: [UNRECOGNIZED DRUG - OTHER] IV SCH (09:30)
[2017-02-18] MEDS ORDERED: WATER IV SCH (09:30)
[2017-02-18] MEDS ORDERED: DEXTROSE IV SCH (09:30)
[2017-02-18] MEDS ORDERED: D5W IV SCH (10:00)
[2017-02-18] MEDS ORDERED: MILRINONE 20 MG/100 ML IV SCH (10:00)
--- NOTE | 2017-02-18 10:38 | US ---
HISTORY: Leg pain and swelling. Evaluate for DVT PHYSICIAN(S): Rm Cueto MD. TECHNIQUE: Duplex sonography and color-flow Doppler with graded compression were used to evaluate the deep venous systems of both lower extremities. FINDINGS: The visualized deep venous systems of both lower extremities are sonographically normal and compressible. Normal wave forms and augmentation are seen. There is no sonographic evidence for deep venous thrombosis in the visualized segments of both lower extremities. IMPRESSION: No sonographic evidence for deep venous thrombosis in the visualized segments of both lower extremities.
[2017-02-18] MEDS: Metoprolol Succinate 25 mg XL Tab PO SCH (11:07)
--- NOTE | 2017-02-18 12:33 | CT ---
PROCEDURE: CT Lumbar Spine without contrast HISTORY: Low back pain, r/o spinal stenosis COMPARISON: None. TECHNIQUE: Axial computed tomography images were obtained of the lumbar spine without the use of intravenous contrast. Coronal and sagittal reformatted images were created and reviewed. Radiation dose: Total exam DLP = 669 mGy-cm. This CT exam was performed using one or more of the following dose reduction techniques: Automated exposure control, adjustment of the mA and/or kV according to patient size, and/or use of iterative reconstruction technique. FINDINGS: VERTEBRAE: Unremarkable. No fracture. Normal alignment. DISCS/SPINAL CANAL/NEURAL FORAMINA: L1-2: Unremarkable. L2-3: Unremarkable. L3-4: Unremarkable. L4-5: There is a moderate disc bulge or broad-based protrusion. Axial image 59 series 4 L5-S1: Unremarkable. PARASPINAL SOFT TISSUES: Unremarkable. OTHER FINDINGS: None. IMPRESSION: Moderate disc bulge or broad-based protrusion at L4-5. No significant stenosis. This indents the thecal sac centrally
[2017-02-18] MEDS: Milrinone 20mg/100ml D5W 100 ML IV SCH ×2 (13:30→19:59)
--- NOTE | 2017-02-18 16:49 | CARD ---
APPROVED REPORT EKG Measurement Heart [id number] <Conclusion> Normal sinus rhythm Possible Left atrial enlargement Inferior infarct, age undetermined Prolonged QT
[2017-02-18] MEDS ORDERED: Pneumococcal 23-Valent Vaccine IM ONE (17:27)
--- NOTE | 2017-02-18 20:00 | CON ---
SERVICE: Cardiology. REASON FOR CONSULTATION: Cardiac evaluation; admitted with dyspnea; history of cardiomyopathy, nonischemic, status post AICD; history of CVA in the past. BRIEF CLINICAL HISTORY: This is a 51-year-old female with a past medical history significant for SLE, prior stroke, history of patent foramen ovale, ASD, history of right-sided weakness, on Coumadin, history of AICD, initially placed in 2003 in [place], then patient had it in 2012, generator changed by Dr. Rubalcava at [facility], being followed by Dr. Rubalcava, and has questionable history of AICD infection and most recently implanted on the left side of the chest, admitted with complaint of dyspnea on exertion. The patient at home is on continuous milrinone drip at 0.5 mcg/kg/min, which is delivered every week on Tuesday and the patient is very much concerned about changing her hospital drip because she may have lost this upon discharge and may not get next delivery until Tuesday. Denies any chest pain, denies any shortness of breath, denies any palpitation. Being also followed for heart transplant at [facility], last admitted a month ago and next is due to see at [facility] next Tuesday. The patient said that she has been followed up at [facility] for transplant as we are not concerned for patent foramen ovale because she is in a transplant list now. Admitted with complaint of shortness of breath, also complained of lower extremity pain in both legs as well as back pain. Denies any fever, chills. Denies any shortness of breath. Though history of infection, the defibrillator is removed and now is placed on the left chest wall the defibrillator and only the single chamber pacemaker is on the chest and below the clavicle and defibrillator is on the left side of the chest. Prior to that, the patient had vest, but she has difficulty in wearing the LifeVest, so change to single chamber defibrillator on the left side of the chest in the midaxillary area. PAST MEDICAL HISTORY: Significant for lupus, anxiety disorder, gastroesophageal reflux, hypertension, hyperlipidemia, nonischemic cardiomyopathy, CHF, panic attack, CVA with right-sided weakness, 15 years ago history of defibrillator initially placed in 2003 in [place], four years ago generator was changed by Dr. Rubalcava, being followed, recently patient had an infection, defibrillator was removed, LifeVest was given, single chamber VVI pacemaker was placed on left side of the chest below the clavicle and most recently patient with defibrillator on the left side of the chest, done by Dr. Rubalcava. History of patent foramen ovale and ASD, was on Coumadin and was told that did not concern patent foramen ovale because the patient needs a new heart as well. PAST SURGICAL HISTORY: Significant for , history of defibrillator in 2003, history of generator change in 2012, history of removal of pacemaker recently because of infection, the pacemaker was placed and then again recently defibrillator was placed on the left side of the chest. SOCIAL HISTORY: Every now and then smokes. Denies any history of alcohol abuse. Denies any history of substance abuse. CURRENT MEDICATIONS: The patient is taking continuous infusion of milrinone at home 0.5 mcg/kg/min infusion every week as delivered on Tuesday, taking also Claritin, hydrocortisone tablet, Proventil treatment, Coumadin 2 mg daily, cyanocobalamin, isoniazid, folic acid, Bumex, Xanax. REVIEW OF SYSTEMS: As per HPI. PHYSICAL EXAMINATION: As follows: VITAL SIGNS: Temperature afebrile, heart rate 72, blood pressure 104/64. HEENT: PERRLA. Extraocular muscles intact. NECK: Supple. No carotid bruit. No thyromegaly. CHEST: Clear to auscultation. HEART: S1 and S2, regular. ABDOMEN: Soft. EXTREMITIES: Clubbing and cyanosis negative. LABORATORY DATA: Blood workup as follows: WBC 7, hemoglobin 11.4, hematocrit 37, platelet count 211. Chemistry shows sodium 140, potassium 4, chloride 105, carbon dioxide 14, anion gap of 13, creatinine 0.8. BNP 2750. IMPRESSION: A 51-year-old female with a past medical history of nonischemic cardiomyopathy, history of automated defibrillator placed in 2003 in [facility], in 2013 generator was changed by Dr. Rubalcava, history of lupus, history of cerebrovascular accident, history of patent foramen ovale, on hydrocortisone supplementation, history of systemic lupus erythematosus, history of cerebrovascular accident with right-sided weakness, history of patent foramen ovale, on transplant list, admitted with shortness of breath, being followed at [facility] for cardiac transplantation. The patient concerned using Primacor from the hospital because she said that if we used the Primacor, her Primacor will be thrown away and with the weekend discharge, patient may not get a new bag of Primacor and will go home without Primacor until Tuesday. RECOMMENDATION: Resume back patient's own Primacor. Discussed with Nickie, chief pharmacist, at [facility]. She will allow to continue on Primacor and make some arrangement to go home. History of CHF, cardiomyopathy. We will start Lasix as blood pressure tolerated, increase 40 mg b.i.d. We will get the lipid profile, TSH, and continue the patient on current dosage of Primacor and give extra dose of Coumadin to keep INR of 2. We will give 3 mg today, and we will get the TSH and PT/INR tomorrow. Possible discharge in a day or two. Though BNP is elevated, but clinically, the patient is stable. We will follow with you. Thank you Dr. Rader for providing me the opportunity in taking care of patient, Stephanie Siddiqui. Discussed at length with the patient. I spent 45 minutes with the patient discussing and sorting all these problems of patient's Primacor issue. The patient's EKG showed normal sinus, intraventricular conduction delay, low voltage. Upon discharge, patient will be followed with Dr. Rubalcava and [facility] for heart transplant. Roberto Jones MD
[2017-02-18] MEDS ORDERED: Morphine 2 mg/ml ISec IM PRN (23:10)
--- NOTE | 2017-02-18 23:45 | CP.PCM.PN ---
Subjective - Date & Time of Evaluation Date of Evaluation: 02/18/17 Time of Evaluation: 23:44 - Subjective Subjective: pt needs angiocath insertion . Objective - Vital Signs/Intake and Output Vital Signs (last 24 hours): Temp Pulse Resp BP Pulse Ox 97.4 F L 80 18 112/65 97 02/18/17 16:50 02/18/17 19:59 02/18/17 16:50 02/18/17 19:59 02/18/17 14:01 - Medications Medications: Current Medications Acetaminophen (Tylenol 325mg Tab) 650 mg PO Q4 PRN PRN Reason: Fever >100.4 F Albuterol/Ipratropium (Duoneb 3 Mg/0.5 Mg (3 Ml) Ud) 3 ml IH Q2H PRN PRN Reason: Shortness of Breath Bumetanide (Bumex) 1 mg PO Q12H [facility] Last Admin: 02/18/17 00:41 Dose: Not Given Cyanocobalamin (Vitamin B12 100 Mcg Tab) 100 mcg PO DAILY [facility] Last Admin: 02/18/17 10:55 Dose: Not Given Docusate Sodium (Colace) 100 mg PO DAILY [facility] Last Admin: 02/18/17 11:06 Dose: Not Given Folic Acid (Folic Acid) 1 mg PO DAILY [facility] Last Admin: 02/18/17 11:07 Dose: 1 mg Furosemide (Lasix) 40 mg IV DAILY [facility] Hydrocortisone (Cortef) 20 mg PO BID [facility] Last Admin: 02/18/17 17:16 Dose: 20 mg Milrinone Lactate/Dextrose (Primacor 20mg/100ml D5w) 100 mls @ 12.315 mls/hr IV .Q8H8M ANA LILIA; 0.5 MCG/KG/MIN PRN Reason: Protocol Last Admin: 02/18/17 19:59 Dose: 12.315 mls/hr Ketorolac Tromethamine (Toradol) 15 mg IVP Q4H PRN PRN Reason: Pain, moderate (4-7) Last Admin: 02/18/17 04:19 Dose: 15 mg Loratadine (Claritin) 10 mg PO DAILY [facility] Last Admin: 02/18/17 10:59 Dose: 10 mg Metoprolol Succinate (Toprol Xl) 25 mg PO DAILY [facility] Last Admin: 02/18/17 11:07 Dose: 25 mg Morphine Sulfate (Morphine) 2 mg IM Q4H PRN PRN Reason: Pain, moderate (4-7) Warfarin Sodium (Coumadin) 2 mg PO 1800 ANA LILIA - Labs Labs: PT 17.8 Seconds (9.9-11.8) H 02/17/17 19:45 INR 1.65 (0.93-1.08) H 02/17/17 19:45 Assessment and Plan - Assessment and Plan (Free Text) Assessment: 24 guge angiocath inserted in left wrist area.
[2017-02-18] MEDS ORDERED: guaiFENesin 100 mg/5 ml Syrup UD PO ONE (23:50)
[2017-02-19] MEDS ORDERED: guaiFENesin 200 mg/10 ml Syrup UD PO ONE (00:05)
[2017-02-19] MEDS: Milrinone 20mg/100ml D5W 100 ML IV SCH ×3 (03:20→12:41)
[2017-02-19 06:44] VITALS: O2SAT 97
[2017-02-19 07:11] LABS: ALKALINE PHOSPHATASE 68 U/L (38-126); ALT/SGPT 33 U/L (7-56); AST/SGOT 28 U/L (14-36); BILIRUBIN,TOTAL 0.3 mg/dL (0.2-1.3); BLOOD UREA NITROGEN 16 mg/dL (7-21); CALCIUM 8.6 mg/dL (8.4-10.5); CARBON DIOXIDE 28 mmol/L (21-33); CHLORIDE 104 mmol/L (98-107); GFR AFRICAN-AMERICAN > 60; GLUCOSE,RANDOM 79 mg/dL (70-110); POTASSIUM 3.8 mmol/L (3.6-5.0); SODIUM 144 mmol/L (132-148); TOTAL PROTEIN 7.2 g/dL (5.8-8.3)
[2017-02-19 07:12] LABS: BASO # 0.01 K/mm3 (0.0-2.0); BASO % 0.2 % (0.0-3.0); EOS # 0.1 (0.0-0.7); EOS % 0.9 % (1.5-5.0); GRAN # 4.17 (1.4-6.5); GRAN % 71.6 % (50.0-68.0); HEMATOCRIT 40.2 % (36.0-48.0); INR 1.81 (0.93-1.08); LYMPH # 1.1 (1.2-3.4); LYMPH % 19.6 % (22.0-35.0); MEAN CELL VOLUME 83.1 fl (80.0-105.0); MEAN CORPUSCULAR HEMOGLOBIN 25.4 pg (25.0-35.0); MEAN CORPUSCULAR HGB CONC 30.6 g/dl (31.0-37.0); MEAN PLATELET VOLUME 10.2 fl (7.0-11.0); MONO # 0.5 (0.1-0.6); MONO % 7.7 % (1.0-6.0); RED CELL DISTRIBUTION WIDTH 19.2 % (11.5-14.5); WHITE BLOOD COUNT 5.8 10^3/ul (4.5-11.0)
[2017-02-19] MEDS: Metoprolol Succinate 25 mg XL Tab PO SCH (10:31)
[2017-02-19] MEDS ORDERED: Potassium Chloride 20 mEq ER Tab PO ONE (11:08)
[2017-02-19 12:11] VITALS: BP 106/64; RESP 18; TEMP 98
--- NOTE | 2017-02-19 14:28 | CP.PCM.DIS ---
Provider - Provider Date of Admission: 02/17/17 21:45 Attending physician: Alicia Salvador MD Consults: Cardio - Dr. Jones Time Spent in preparation of Discharge (in minutes): 44 Hospital Course - Lab Results Lab Results: Most Recent Lab Values WBC 5.8 10^3/ul (4.5-11.0) 02/19/17 06:47 RBC 4.84 10^6/uL (3.5-6.1) 02/19/17 06:47 Hgb 12.3 g/dL (12.0-16.0) 02/19/17 06:47 Hct 40.2 % (36.0-48.0) 02/19/17 06:47 MCV 83.1 fl (80.0-105.0) 02/19/17 06:47 MCH 25.4 pg (25.0-35.0) 02/19/17 06:47 MCHC 30.6 g/dl (31.0-37.0) L 02/19/17 06:47 RDW 19.2 % (11.5-14.5) H 02/19/17 06:47 Plt Count 191 10^3/uL (120.0-450.0) 02/19/17 06:47 MPV 10.2 fl (7.0-11.0) 02/19/17 06:47 Gran % 71.6 % (50.0-68.0) H 02/19/17 06:47 Lymph % (Auto) 19.6 % (22.0-35.0) L 02/19/17 06:47 Dale % (Auto) 7.7 % (1.0-6.0) H 02/19/17 06:47 Eos % (Auto) 0.9 % (1.5-5.0) L 02/19/17 06:47 Baso % (Auto) 0.2 % (0.0-3.0) 02/19/17 06:47 Gran # 4.17 (1.4-6.5) 02/19/17 06:47 Lymph # 1.1 (1.2-3.4) L 02/19/17 06:47 Dale # 0.5 (0.1-0.6) 02/19/17 06:47 Eos # 0.1 (0.0-0.7) 02/19/17 06:47 Baso # 0.01 K/mm3 (0.0-2.0) 02/19/17 06:47 PT 19.5 Seconds (9.9-11.8) H 02/19/17 06:47 INR 1.81 (0.93-1.08) H 02/19/17 06:47 Sodium 144 mmol/L (132-148) 02/19/17 06:47 Potassium 3.8 mmol/L (3.6-5.0) 02/19/17 06:47 Chloride 104 mmol/L (98-107) 02/19/17 06:47 Carbon Dioxide 28 mmol/L (21-33) 02/19/17 06:47 Anion Gap 16 (10-20) 02/19/17 06:47 BUN 16 mg/dL (7-21) 02/19/17 06:47 Creatinine 0.9 mg/dL (0.5-1.4) 02/19/17 06:47 Est GFR ( Amer) > 60 02/19/17 06:47 Est GFR (Non-Af Amer) > 60 02/19/17 06:47 Random Glucose 79 mg/dL (70-110) 02/19/17 06:47 Calcium 8.6 mg/dL (8.4-10.5) 02/19/17 06:47 Total Bilirubin 0.3 mg/dL (0.2-1.3) 02/19/17 06:47 AST 28 U/L (14-36) 02/19/17 06:47 ALT 33 U/L (7-56) 02/19/17 06:47 Alkaline Phosphatase 68 U/L (38-126) 02/19/17 06:47 Lactate Dehydrogenase 576 U/L (333-699) 02/17/17 19:41 Total Creatine Kinase 42 U/L (35-230) 02/17/17 19:41 Troponin I 0.01 ng/mL 02/17/17 19:41 NT-Pro-B Natriuret Pep 2750 pg/mL (0-450) H 02/17/17 19:41 Total Protein 7.2 g/dL (5.8-8.3) 02/19/17 06:47 Albumin 3.6 g/dL (3.0-4.8) 02/19/17 06:47 Globulin 3.6 gm/dL 02/19/17 06:47 Albumin/Globulin Ratio 1.0 (1.1-1.8) L 02/19/17 06:47 Vitamin B12 463 pg/mL (239-931) 02/17/17 19:41 Urine Color Light yellow (YELLOW) 02/17/17 18:00 Urine Appearance Clear (CLEAR) 02/17/17 18:00 Urine pH 6.0 (4.7-8.0) 02/17/17 18:00 Ur Specific Butler 1.010 (1.005-1.035) 02/17/17 18:00 Urine Protein Negative mg/dL (<30 mg/dL) 02/17/17 18:00 Urine Glucose (UA) Negative mg/dL (NEGATIVE) 02/17/17 18:00 Urine Ketones Negative mg/dL (NEGATIVE) 02/17/17 18:00 Urine Blood Negative (NEGATIVE) 02/17/17 18:00 Urine Nitrate Negative (NEGATIVE) 02/17/17 18:00 Urine Bilirubin Negative (NEGATIVE) 02/17/17 18:00 Urine Urobilinogen 0.2 E.U./dL (<1 E.U./dL) 02/17/17 18:00 Ur Leukocyte Esterase Negative Jayant/uL (NEGATIVE) 02/17/17 18:00 Discharge Exam - Head Exam Head Exam: ATRAUMATIC, NORMOCEPHALIC - Eye Exam Eye Exam: EOMI, Normal appearance - ENT Exam ENT Exam: Mucous Membranes Moist - Respiratory Exam Respiratory Exam: Clear to PA & Lateral, UNREMARKABLE - Cardiovascular Exam Cardiovascular Exam: RRR, +S1, +S2 - GI/Abdominal Exam GI & Abdominal Exam: Soft. absent: Tenderness - Extremities Exam Additional comments: no pedal edema - Back Exam Additional comments: Lumbar paraspinal tenderness - Neurological Exam Neurological exam: Alert, Oriented x3 - Psychiatric Exam Psychiatric exam: Normal Affect, Normal Mood - Skin Skin Exam: Dry, Intact, Normal Color, Warm Discharge Plan - Follow Up Plan Condition: FAIR Disposition: HOME/ ROUTINE Additional Instructions: Follow up with your primary doctor within 1 week. If you are taking pain medications, take it with food.
[2017-02-19] MEDS ORDERED: ACETAMINOPHEN PO PRN (18:44)
[2017-02-19] MEDS ORDERED: OXYCODONE PO PRN (18:44)
[2017-02-19 18:47] VITALS: PULSE 67
--- NOTE | 2017-02-19 21:59 | PN ---
DATE: 02/19/2017 REASON FOR CONSULTATION: Follow up cardiac evaluation, presented with dyspnea, history of cardiomyopathy, nonischemic, status post AICD, history of CVA in the past. SUBJECTIVE: The patient denies any shortness of breath, denies any palpitation, complained of leg pain and hip pain. OBJECTIVE: GENERAL: Not in apparent distress, lying flat in the bed. VITAL SIGNS: Temperature afebrile, heart rate of 60, blood pressure 100/48. HEENT: PERRLA. Extraocular muscles intact. NECK: Supple. No carotid bruit or thyromegaly. CHEST: Clear to auscultation. HEART: S1 and S2 regular. ABDOMEN: Soft. EXTREMITIES: Clubbing and cyanosis negative. LABORATORY DATA: Blood workup as follows: WBC 5.8, hemoglobin 12.3, hematocrit 40.2, platelet count 191. Chemistries show sodium 144, potassium 3.8, chloride of 104, carbon dioxide 28, anion gap of 16, BUN 16, creatinine 0.9, total protein 7.2, albumin 3.6, albumin-globulin ratio 1. IMPRESSION: Decompensated congestive heart failure, [id number] secondary to systolic dysfunction, cardiomyopathy, severely decreased left ventricular function on home Primacor, history of automatic implantable cardioverter defibrillator, history of infected AICD, status post AICD replaced, noted on chest wall and pacemaker on the left side. RECOMMENDATION: Arrangement has been made for Primacor home infusion. The patient delivery. Continue anticoagulation, INR is 1.81. Possible discharge discussed with Dr. Salvador and her team taking care of the patient. We will follow with you. Upon discharge, patient will be followed by Dr. Rubalcava at [facility] and heart transplant next week for cardiac evaluation. Thank you Dr. Salvador for providing us the opportunity in taking care of the patient, Stephanie Siddiqui. Roberto Jones MD
[2017-02-20] MEDS ORDERED: DOXYCYCLINE HYCLATE 100 MG PO SCH (10:00)
== END 2017-02-19 19:00 | disposition home or self-care (01) ==
LOC: ED 17:18 → ERH 21:45 → 2RSO 02-18 13:39
PROVIDERS: ADMIT Hospitalist; ATTEND Internal Medicine
DX: D25.9 Leiomyoma of uterus, unspecified (principal); E78.5 Hyperlipidemia, unspecified; I11.0 Hypertensive heart disease with heart failure; I50.23 Acute on chronic systolic (congestive) heart failure; I42.9 Cardiomyopathy, unspecified; I69.351 Hemiplegia and hemiparesis following cerebral infarction affecting right dominant side; J45.909 Unspecified asthma, uncomplicated; K21.9 Gastro-esophageal reflux disease without esophagitis; M32.9 Systemic lupus erythematosus, unspecified; F41.0 Panic disorder [episodic paroxysmal anxiety]; F17.200 Nicotine dependence, unspecified, uncomplicated; R76.11 Nonspecific reaction to tuberculin skin test without active tuberculosis; Z79.01 Long term (current) use of anticoagulants; Z80.0 Family history of malignant neoplasm of digestive organs; Z87.01 Personal history of pneumonia (recurrent); Z95.810 Presence of automatic (implantable) cardiac defibrillator; Z86.79 Personal history of other diseases of the circulatory system; Z95.0 Presence of cardiac pacemaker
CPT/HCPCS: 36415; 71020; 72131; 76830; 80053; 81003; 82550; 82607; 83615; 83880; 84145; 84484; 85025; 85027; 85610; 93005; 93970; 94640; 96374; 96375; 96376; 99285; G0378; J1885; J1940; J2260; J2270

== ENCOUNTER 2017-03-09 20:24 | Emergency (ER) | payer MEDICARE, MEDICAID ==
[2017-03-09 20:24] VITALS: PULSE 98; BMI 32.1
[2017-03-09 20:47] VITALS: BP 120/71; PULSE 69; RESP 20; O2SAT 98
[2017-03-09] MEDS ORDERED: Morphine 2 mg/ml ISec IVP STA (20:48)
--- NOTE | 2017-03-09 21:04 | ED PDOC ---
Arrival/HPI - General Chief Complaint: Pain, Chronic Time Seen by Provider: 03/09/17 20:34 Historian: Patient - History of Present Illness Narrative History of Present Illness (Text): 03/09/17 20:50 A 51 year old female, whose past medical history includes lupus, cardiomyopathy on primacor drip, CVA, and fibroids, presents to the emergency department complaining of body aches and diffuse aches in joints. Patient reports she was admitted a while ago for similar pain. She had not seen her sales incentive analyst after she was discharged from hospital 3 weeks ago, but she has an appointment set to see doctor in 2 weeks. Patient states experiencing lower extremity pain, abdominal pain, back pain, mainly pain all over but no changes since discharge. She also mentions experiencing dizziness (spinning sensation). patient denies of any shortness of breath, nausea, vomiting, or any other complaints. PMD: Dr. Ilia Maxwell Wearing Apparel Shaker: Dr. Jose Luis Polanco Past Medical History - Provider Review Nursing Documentation Reviewed: Yes - Past History Past History: Non-Contributing - Infectious Disease Hx of Infectious Diseases: None - Tetanus Immunization Tetanus Immunization: Unknown - Past Medical History Past Medical History: Non-Contributing - Cardiac Hx Cardiac Disorders: Yes (cardiomyopathy,ACS) Hx Congestive Heart Failure: Yes Hx Hypertension: Yes Hx Internal Defibrillator: Yes Hx Pacemaker: Yes (X2) Other/Comment: on Primacor drip - Pulmonary Hx Respiratory Disorders: Yes (pe) Hx Asthma: Yes Hx Pneumonia: Yes Other/Comment: h/o intubation,H/O + PPD - Neurological Hx Neurological Disorder: Yes HX Cerebrovascular Accident: Yes (X 2 ,16 ys ago, no residual) Hx Dizziness: Yes - HEENT Hx HEENT Disorder: Yes (eyeglasses, seasonal allergies) - Renal Hx Renal Disorder: No - Endocrine/Metabolic Hx Endocrine Disorders: Yes Hx Systemic Lupus Erythematosus: Yes - Hematological/Oncological Hx Blood Disorders: Yes (BREAST HEMATOMA) Hx AIDS: No Hx Anemia: No Hx Cancer: No Hx Chemotherapy: No Hx Cirrhosis: No Hx Hepatitis A: No Hx Hepatitis B: No Hx Hepatitis C: No Hx Metastasis: No Hx Shingles: No Hx Unexplained Bleeding: No - Integumentary Hx Dermatological Disorder: Yes (SCARRING UNDER THE BREAST) - Musculoskeletal/Rheumatological Hx Musculoskeletal Disorders: Yes Hx Falls: Yes (hx of) - Gastrointestinal Hx Gastrointestinal Disorders: Yes Hx Gastroesophageal Reflux: Yes - Genitourinary/Gynecological Hx Genitourinary Disorders: Yes (NON-MALIGNANT BREAST CALCIFICIATION) Other/Comment: UTERINE FIBROID - Psychiatric Hx Psychophysiologic Disorder: Yes (H/O SMOKING CIGARETTES 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 Right upper arm PICC -- on primacor drip 2016 - Anesthesia Hx Anesthesia: Yes Hx Anesthesia Reactions: No Hx Malignant Hyperthermia: No - Suicidal Assessment Feels Threatened In Home Enviroment: No Family/Social History - Physician Review Nursing Documentation Reviewed: Yes Family/Social History: No Known Family HX Smoking Status: Former Smoker Hx Alcohol Use: Yes (SOCIALLY QUIT) Hx Substance Use: No Hx Substance Use Treatment: No Allergies/Home Meds Allergies/Adverse Reactions: Allergies tramadol Adverse Reaction (Verified 03/09/17 20:31) DIZZINESS Home Medications: Home Meds Medication Instructions Recorded Confirmed Warfarin [Coumadin] 2 mg PO DAILY 11/03/15 03/09/17 ALPRAZolam [Xanax] 1 tab PO Q12 12/04/16 03/09/17 Albuterol HFA [Ventolin HFA 90 1 puff IH Q4H PRN 12/04/16 03/09/17 mcg/actuation (8 g)] Famotidine [Pepcid] 1 tab PO DAILY 12/04/16 03/09/17 Folic Acid 1 tab PO DAILY 12/04/16 03/09/17 Metoprolol Succinate [Toprol XL] 1 tab PO DAILY 12/04/16 03/09/17 Milrinone 20mg/100ml D5W [Primacor 1 ml IV DAILY 12/04/16 03/09/17 20mg/100ml D5W] Amiodarone [Cordarone] 200 mg PO DAILY 03/09/17 03/09/17 Bumetanide [Bumex] 1 mg PO DAILY 03/09/17 03/09/17 Cholecalciferol (Vitamin D3) 1 tab PO DAILY 03/09/17 03/09/17 [Vitamin D3] Ferrous Sulfate [Feosol] 325 mg PO DAILY 03/09/17 03/09/17 Hydrocortisone [Cortef] 10 mg PO DAILY 03/09/17 03/09/17 Isoniazid [Niazid] 300 mg PO DAILY 03/09/17 03/09/17 Lisinopril [Zestril] 2.5 mg PO DAILY 03/09/17 03/09/17 Potassium Chloride [Klor-Con] 20 meq PO DAILY 03/09/17 03/09/17 Pyridoxine [Vitamin B6] 50 mg PO DAILY 03/09/17 03/09/17 Warfarin [Coumadin] 4 mg PO QWK 03/09/17 03/09/17 Review of Systems - Physician Review All systems were reviewed & negative as marked: Yes - Review of Systems Constitutional: absent: Fevers Respiratory: absent: SOB Cardiovascular: absent: Chest Pain Gastrointestinal: Abdominal Pain (no changes; already worked up - fibroids found ). absent: Nausea, Vomiting Genitourinary Female: absent: Dysuria Musculoskeletal: Back Pain, Other (lower extremity pain b/L) Neurological: Dizziness (spinning sensation which began today) Physical Exam Vital Signs Reviewed: Yes Vital Signs Pulse Resp BP Pulse Ox 03/09/17 20:42 69 20 120/71 98 Temperature: Afebrile Blood Pressure: Normal Pulse: Regular Respiratory Rate: Normal Appearance: Positive for: Well-Appearing Pain Distress: None Mental Status: Positive for: Alert and Oriented X 3 - Systems Exam Head: Present: Atraumatic, Normocephalic Pupils: Present: PERRL Conjunctiva: Present: Normal Mouth: Present: Moist Mucous Membranes Pharnyx: Present: Normal. No: ERYTHEMA, EXUDATE Neck: Present: Normal Range of Motion Respiratory/Chest: Present: Clear to Auscultation, Good Air Exchange. No: Respiratory Distress, Accessory Muscle Use Cardiovascular: Present: Regular Rate and Rhythm, Normal S1, S2. No: Murmurs Abdomen: Present: Normal Bowel Sounds. No: Tenderness, Distention, Peritoneal Signs Back: Present: Normal Inspection Upper Extremity: Present: Normal Inspection. No: Cyanosis, Edema, Swelling Lower Extremity: Present: Normal Inspection. No: Edema, Swelling Neurological: Present: GCS=15, CN II-XII Intact, Speech Normal Skin: Present: Warm, Dry, Normal Color. No: Rashes Psychiatric: Present: Alert, Oriented x 3, Normal Insight, Normal Concentration Medical Decision Making ED Course and Treatment: 03/09/17 20:55 Impression: 51 year old female with body aches and arthralgias. No acute findings on physical exam. Plan: -- Brain CT -- Chest X-ray -- Labs -- Urinalysis -- Toradol -- Morphine -- Reassess and disposition Prior Visits: Notes and results from previous visits were reviewed. Patient was last seen in the emergency department on 02/07/2017 for abdominal pain and vaginal bleeding. Progress Notes: 03/09/2017 21:[address] IMPRESSION: No acute intracranial hemorrhage, or suspicious mass effect. Age advanced ventriculomegaly with a dilated sulci along basilar fissures, unchanged from prior. Dictator: Stephanie Ashley MD 03/09/17 22:30 Chest xray: No active disease, interpreted by me. 03/09/17 22:59 Patient with noted history with multiple medical problems, including lupus c/o body aches and arthralgias, which are chronic but no acute complaints. She has not seen her sales incentive analyst since discharge last month. 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 Labs are unremarkable as is imaging. INR is therapeutic. She was given toradol and a low dose of morphine with significant relief and feeling much better - discussed with patient that she needs to f/u sales incentive analyst and further treatment discussed with him. In the meantime, will give her 2 days of oxycodone tabs till she sees pmd and arrangements for treatment till seen by rheumatology. - Lab Interpretations Lab Results: 03/09/17 21:10 03/09/17 21:10 Lab Results 03/09/17 21:18: Urine Color Yellow, Urine Appearance Clear, Urine pH 5.5, Ur Specific [place] 1.015, Urine Protein Negative, Urine Glucose (UA) Negative, Urine Ketones Negative, Urine Blood Negative, Urine Nitrate Negative, Urine Bilirubin Negative, Urine Urobilinogen 0.2, Ur Leukocyte Esterase Trace H, Urine RBC Negative, Urine WBC 0 - 2, Ur Epithelial Cells 0 - 2 03/09/17 21:10: PT 24.0 H, INR 2.22 H, APTT 29.5 03/09/17 21:10: Sodium 144, Potassium 3.6, Chloride 105, Carbon Dioxide 27, Anion Gap 16, BUN 27 H, Creatinine 1.0, Est GFR ( Amer) > 60, Est GFR ( Non-Af Amer) 59, Random Glucose 101, Calcium 8.7, Magnesium 2.0, Total Bilirubin 0.4, AST 26, ALT 23, Alkaline Phosphatase 73, Lactate Dehydrogenase 651, Total Creatine Kinase 51, Troponin I < 0.01, Total Protein 7.9, Albumin 4.1 , Globulin 3.8, Albumin/Globulin Ratio 1.1, Lipase 125 03/09/17 21:10: WBC 6.2, RBC 4.81, Hgb 12.6, Hct 38.9, MCV 80.9, MCH 26.2, MCHC 32.4, RDW 17.9 H, Plt Count 282, Gran % 67.7, Lymph % (Auto) 22.3, [place] % (Auto ) 7.9 H, Eos % (Auto) 1.9, Baso % (Auto) 0.2, Gran # 4.23, Lymph # 1.4, [place] # 0.5, Eos # 0.1, Baso # 0.01 I have reviewed the lab results: Yes - RAD Interpretation Radiology Orders: 03/09/17 20:45 Brain [HEAD W/O CONTRAST] [CT] Stat 03/09/17 20:46 CHEST ONE VIEW [RAD] Stat - Medication Orders Current Medication Orders: Methylprednisolone (Solu-Medrol) 125 mg IVP STAT STA Stop: 03/09/17 22:50 Discontinued Medications Ketorolac Tromethamine (Toradol) 30 mg IVP STAT STA Stop: 03/09/17 20:48 Last Admin: 03/09/17 20:49 Dose: 30 mg MAR Pain Assessment Document 03/09/17 20:49 SS (Rec: 03/09/17 21:25 [place] [facility] [id number] Pain Reassessment Is this a pain reassessment? No Sleep Is patient sleeping during reassessment? No Presence of Pain Presence of Pain Yes Pain Scale Used Pain Scale Used Numeric Location Left, Right or Bilateral Bilateral Pain Location Body Site Leg Description Description Constant Intensity of Pain at present 10 IVP Administration Document 03/09/17 20:49 SS (Rec: 03/09/17 21:25 [place] [facility] [id number][place] Charges for Administration # of IVP Administrations 1 Morphine Sulfate (Morphine) 2 mg IVP STAT STA Stop: 03/09/17 20:49 Last Admin: 03/09/17 20:48 Dose: 2 mg MAR Pain Assessment Document 03/09/17 20:48 SS (Rec: 03/09/17 21:24 [place] [facility] [id number][place] Pain Reassessment Is this a pain reassessment? No Sleep Is patient sleeping during reassessment? No Presence of Pain Presence of Pain Yes Pain Scale Used Pain Scale Used Numeric Location Left, Right or Bilateral Bilateral Pain Location Body Site Leg Description Description Constant Intensity of Pain at present 10 IVP Administration Document 03/09/17 20:48 SS (Rec: 03/09/17 21:24 [place] [facility] [id number][place] Charges for Administration # of IVP Administrations 1 - Scribe Statement The provider has reviewed the documentation as recorded by the Gladis Munroe Provider Scribe Attestation: All medical record entries made by the Scribe were at my direction and personally dictated by me. I have reviewed the chart and agree that the record accurately reflects my personal performance of the history, physical exam, medical decision making, and the department course for this patient. I have also personally directed, reviewed, and agree with the discharge instructions and disposition. Disposition/Present on Arrival - Present on Arrival Any Indicators Present on Arrival: Yes History of DVT/PE: Yes History of Uncontrolled Diabetes: No Urinary Catheter: No History of Decub. Ulcer: No History Surgical Site Infection Following: None - Disposition Have Diagnosis and Disposition been Completed?: Yes Diagnosis: Arthralgia Disposition: HOME/ ROUTINE Disposition Time: 22:50 Patient Plan: Discharge Condition: GOOD Additional Instructions: Continue your current medications. You may use oxycodone if the pain is severe till you see your primary care doctor. Discuss with your primary care doctor further options till you are seen by your sales incentive analyst. Return to the emergency department if any new concerning symptoms. Prescriptions: oxyCODONE/Acetaminophen [Percocet 5/325 mg Tab] 1 tab PO Q6H PRN #8 tab PRN Reason: Pain, Severe (8-10) Referrals: Ilia Maxwell MD [Primary Care Provider] - Follow up with primary Forms: [email or web address] ([place])
[2017-03-09 21:25] LABS: BASO # 0.01 K/mm3 (0.0-2.0); BASO % 0.2 % (0.0-3.0); EOS # 0.1 (0.0-0.7); EOS % 1.9 % (1.5-5.0); GRAN # 4.23 (1.4-6.5); GRAN % 67.7 % (50.0-68.0); HEMATOCRIT 38.9 % (36.0-48.0); LYMPH # 1.4 (1.2-3.4); LYMPH % 22.3 % (22.0-35.0); MEAN CELL VOLUME 80.9 fl (80.0-105.0); MEAN CORPUSCULAR HEMOGLOBIN 26.2 pg (25.0-35.0); MEAN CORPUSCULAR HGB CONC 32.4 g/dl (31.0-37.0); MONO # 0.5 (0.1-0.6); MONO % 7.9 % (1.0-6.0); PLATELET COUNT 282 10^3/uL (120.0-450.0); RED CELL DISTRIBUTION WIDTH 17.9 % (11.5-14.5); WHITE BLOOD COUNT 6.2 10^3/ul (4.5-11.0)
[2017-03-09 21:31] LABS: PH,URINE 5.5 (4.7-8.0); URINE BILIRUBIN NEGATIVE (NEGATIVE); URINE BLOOD NEGATIVE (NEGATIVE); URINE GLUCOSE (UA) NEGATIVE (NEGATIVE); URINE KETONE NEGATIVE (NEGATIVE); URINE LEUKOCYTE ESTERASE TRACE Leu/uL (NEGATIVE); URINE PROTEIN NEGATIVE mg/dL (<30 mg/dL); URINE UROBILINOGEN 0.2 E.U./dL (<1 E.U./dL)
[2017-03-09 21:32] LABS: ALB/GLOB RATIO 1.1 (1.1-1.8); ALKALINE PHOSPHATASE 73 U/L (38-126); ALT/SGPT 23 U/L (7-56); AST/SGOT 26 U/L (14-36); BILIRUBIN,TOTAL 0.4 mg/dL (0.2-1.3); BLOOD UREA NITROGEN 27 mg/dL (7-21); CALCIUM 8.7 mg/dL (8.4-10.5); CARBON DIOXIDE 27 mmol/L (21-33); CHLORIDE 105 mmol/L (98-107); GFR AFRICAN-AMERICAN > 60; GLUCOSE,RANDOM 101 mg/dL (70-110); LIPASE 125 U/L (23-300); POTASSIUM 3.6 mmol/L (3.6-5.0); SODIUM 144 mmol/L (132-148); TOTAL PROTEIN 7.9 g/dL (5.8-8.3)
[2017-03-09 21:32] LABS: URINE APPEARANCE CLEAR (CLEAR); URINE COLOR YELLOW (YELLOW)
[2017-03-09 21:34] LABS: INR 2.22 (0.93-1.08); PARTIAL THROMBOPLASTIN TIME 29.5 Seconds (23.7-30.8)
[2017-03-09 21:36] LABS: URINE EPITHELIAL CELLS 0 - 2 /hpf (0-5); URINE RBC NEGATIVE /hpf (0-2); URINE WBC 0 - 2 /hpf (0-6)
[2017-03-09 21:44] LABS: TROPONIN I < 0.01 ng/mL
--- NOTE | 2017-03-09 21:44 | CT ---
EXAM: CT Head Without Intravenous Contrast CLINICAL HISTORY: 51 years old, female; Signs and symptoms; Dizziness; Additional info: Dizzy TECHNIQUE: Axial computed tomography images of the head/brain without intravenous contrast. All CT scans at this facility use one or more dose reduction techniques, viz.: automated exposure control; ma/kV adjustment per patient size (including targeted exams where dose is matched to indication; i.e. head); or iterative reconstruction technique. COMPARISON: CT - HEAD W/O CONTRAST 03/04/2016 7:09:26 PM FINDINGS: Brain: No acute intracranial hemorrhage. Multiple areas of decreased attenuation are again identified suggesting prior cerebral infarction, primarily within the left basal ganglia and right thalamus. Dilated sulci, specifically within the sylvian fissures are again noted. No edema. Ventricles: Age advanced ventriculomegaly. Bones: No acute displaced fracture. Sinuses: Unremarkable as visualized. No acute sinusitis. Mastoid air cells: Unremarkable as visualized. No mastoid effusion. IMPRESSION: No acute intracranial hemorrhage, or suspicious mass effect. Age advanced ventriculomegaly with a dilated sulci along basilar fissures, unchanged from prior.
--- NOTE | 2017-03-10 08:22 | RAD ---
PROCEDURE: CHEST RADIOGRAPH, 1 VIEW HISTORY: body aches COMPARISON: 02/17/2027. FINDINGS: The right PICC line terminates in the SVC. LUNGS: The lungs are well inflated. There is airspace disease in the right upper lobe. PLEURA: No pneumothorax or pleural fluid seen. CARDIOVASCULAR: There is persistent moderate cardiomegaly. There is stable position of a left-sided unipolar permanent pacing device. . OSSEOUS STRUCTURES: No significant abnormalities. VISUALIZED UPPER ABDOMEN: Normal. OTHER FINDINGS: None. IMPRESSION: Airspace disease in the right upper lobe which may represent atelectasis or pneumonia. Persistent moderate cardiomegaly.
== END 2017-03-09 23:35 | disposition home or self-care (01) ==
LOC: ED 20:24
DX: M25.50 Pain in unspecified joint (principal)
CPT/HCPCS: 70450; 71010; 80053; 81001; 82550; 83615; 83690; 83735; 84484; 85025; 85610; 85730; 87086; 96374; 96375; 99283; J1885; J2270; J2930

== ENCOUNTER 2017-03-23 22:34 | Emergency (ER) | payer MEDICARE, MEDICAID ==
[2017-03-23 22:34] VITALS: PULSE 98; BMI 32.1
[2017-03-23 22:47] VITALS: BP 105/64; PULSE 61; RESP 18; TEMP 98; O2SAT 97
--- NOTE | 2017-03-23 23:03 | ED PDOC ---
Arrival/HPI - General Chief Complaint: Pain, Chronic Time Seen by Provider: 03/23/17 22:35 Historian: Patient - History of Present Illness Narrative History of Present Illness (Text): 03/23/17 23:03 A 51 year old female, whose past medical history includes lupus, fibroids, CVA and cardiomyopathy on primacor drip, was brought in by EMS to the emergency department complaining of generalized body aches and pains. Patient reports she saw her PMD today, who advised her to come to the emergency department for further evaluation because of low potassium level and high INR level. Patient is well known to the emergency department. Patient denies any chest pain, shortness of breath or any other complaints at this time. PMD: Dr. Maxwell Symptom Onset: Sudden Symptom Course: Unchanged Activities at Onset: Rest Context: Home Past Medical History - Provider Review Nursing Documentation Reviewed: Yes - Past History Past History: Non-Contributing - Infectious Disease Hx of Infectious Diseases: None - Tetanus Immunization Tetanus Immunization: Unknown - Past Medical History Past Medical History: Non-Contributing - Cardiac Hx Cardiac Disorders: Yes (cardiomyopathy,ACS) Hx Congestive Heart Failure: Yes Hx Hypertension: Yes Hx Internal Defibrillator: Yes Hx Pacemaker: Yes (X2) Other/Comment: on Primacor drip - Pulmonary Hx Respiratory Disorders: Yes (pe) Hx Asthma: Yes Hx Pneumonia: Yes Other/Comment: h/o intubation,H/O + PPD - Neurological Hx Neurological Disorder: Yes HX Cerebrovascular Accident: Yes (X 2 ,16 ys ago, no residual) Hx Dizziness: Yes - HEENT Hx HEENT Disorder: Yes (eyeglasses, seasonal allergies) - Renal Hx Renal Disorder: No - Endocrine/Metabolic Hx Endocrine Disorders: Yes Hx Systemic Lupus Erythematosus: Yes - Hematological/Oncological Hx Blood Disorders: Yes (BREAST HEMATOMA) Hx AIDS: No Hx Anemia: No Hx Cancer: No Hx Chemotherapy: No Hx Cirrhosis: No Hx Hepatitis A: No Hx Hepatitis B: No Hx Hepatitis C: No Hx Metastasis: No Hx Shingles: No Hx Unexplained Bleeding: No - Integumentary Hx Dermatological Disorder: Yes (SCARRING UNDER THE BREAST) - Musculoskeletal/Rheumatological Hx Musculoskeletal Disorders: Yes Hx Falls: Yes - Gastrointestinal Hx Gastrointestinal Disorders: Yes Hx Gastroesophageal Reflux: Yes - Genitourinary/Gynecological Hx Genitourinary Disorders: Yes (NON-MALIGNANT BREAST CALCIFICIATION) Other/Comment: UTERINE FIBROID - Psychiatric Hx Psychophysiologic Disorder: Yes (H/O SMOKING CIGARETTES 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 Right upper arm PICC - Anesthesia Hx Anesthesia: Yes - Suicidal Assessment Feels Threatened In Home Enviroment: No Family/Social History - Physician Review Nursing Documentation Reviewed: Yes Family/Social History: No Known Family HX Smoking Status: Former Smoker Hx Alcohol Use: Yes (SOCIALLY QUIT) Hx Substance Use: No Hx Substance Use Treatment: No Allergies/Home Meds Allergies/Adverse Reactions: Allergies tramadol Adverse Reaction (Verified 03/23/17 22:40) DIZZINESS Home Medications: Home Meds Medication Instructions Recorded Confirmed Warfarin [Coumadin] 2 mg PO DAILY 11/03/15 03/09/17 ALPRAZolam [Xanax] 1 tab PO Q12 12/04/16 03/23/17 Albuterol HFA [Ventolin HFA 90 1 puff IH Q4H PRN 12/04/16 03/23/17 mcg/actuation (8 g)] Famotidine [Pepcid] 1 tab PO DAILY 12/04/16 03/23/17 Folic Acid 1 tab PO DAILY 12/04/16 03/23/17 Metoprolol Succinate [Toprol XL] 1 tab PO DAILY 12/04/16 03/23/17 Milrinone 20mg/100ml D5W [Primacor 0.5 mcg IV CONT 12/04/16 03/09/17 20mg/100ml D5W] Amiodarone [Cordarone] 200 mg PO DAILY 03/09/17 03/23/17 Bumetanide [Bumex] 1 mg PO DAILY 03/09/17 03/23/17 Cholecalciferol (Vitamin D3) 1 tab PO DAILY 03/09/17 03/23/17 [Vitamin D3] Ferrous Sulfate [Feosol] 325 mg PO DAILY 03/09/17 03/23/17 Hydrocortisone [Cortef] 10 mg PO DAILY 03/09/17 03/23/17 Isoniazid [Niazid] 300 mg PO DAILY 03/09/17 03/23/17 Lisinopril [Zestril] 2.5 mg PO DAILY 03/09/17 03/23/17 Potassium Chloride [Klor-Con] 20 meq PO DAILY 03/09/17 03/23/17 Pyridoxine [Vitamin B6] 50 mg PO DAILY 03/09/17 03/23/17 Review of Systems - Physician Review All systems were reviewed & negative as marked: Yes - Review of Systems Constitutional: Other (generalized body aches and pains) Respiratory: absent: SOB Cardiovascular: absent: Chest Pain Physical Exam Vital Signs Reviewed: Yes Vital Signs Temp Pulse Resp BP Pulse Ox 03/23/17 22:43 98.0 F 61 18 105/64 97 Temperature: Afebrile Blood Pressure: Normal Pulse: Regular Respiratory Rate: Normal Appearance: Positive for: Well-Appearing, Non-Toxic, Comfortable Pain Distress: None Mental Status: Positive for: Alert and Oriented X 3 - Systems Exam Head: Present: Atraumatic, Normocephalic Pupils: Present: PERRL Extroacular Muscles: Present: EOMI Conjunctiva: Present: Normal Mouth: Present: Moist Mucous Membranes Neck: Present: Normal Range of Motion Respiratory/Chest: Present: Clear to Auscultation, Good Air Exchange. No: Respiratory Distress, Accessory Muscle Use Cardiovascular: Present: Regular Rate and Rhythm, Normal S1, S2. No: Murmurs Abdomen: Present: Normal Bowel Sounds. No: Tenderness, Distention, Peritoneal Signs Back: Present: Normal Inspection Upper Extremity: Present: Normal Inspection. No: Cyanosis, Edema Lower Extremity: Present: Normal Inspection. No: Edema Neurological: Present: GCS=15, CN II-XII Intact, Speech Normal Skin: Present: Warm, Dry, Normal Color. No: Rashes Psychiatric: Present: Alert, Oriented x 3, Normal Insight, Normal Concentration Medical Decision Making ED Course and Treatment: 03/23/17 23:02 Impression: A 51 year old female with generalized body aches and pains. Plan: -- EKG -- labs -- Urinalysis -- Toradol -- Reassess and disposition Prior Visits: Notes and results from previous visits were reviewed. Patient was last seen in the emergency department 03/09/17 for evaluation of body aches and diffuse aches in joints. Progress Notes: 03/24/17 01:27 Patient is sleeping, in no acute distress. Noted supratherapeutic INR. Patient reports outpatient INR was greater than 6. Patient was advised holding her Coumadin will follow up with PMD. 03/24/17 02:21 in ed pt requesting morphine for chronic pain. review of [place] rx shows multiple rx for narcotics. pt adivse will be treated with non narcotics. - Lab Interpretations Lab Results: 03/23/17 23:10 03/23/17 23:10 Lab Results 03/24/17 00:59: PT 61.3 H*, INR 5.43 H*, APTT 62.4 H 03/23/17 23:28: Urine Color Straw, Urine Appearance Clear, Urine pH 6.0, Ur Specific [place] 1.015, Urine Protein Negative, Urine Glucose (UA) Negative, Urine Ketones Negative, Urine Blood Negative, Urine Nitrate Negative, Urine Bilirubin Negative, Urine Urobilinogen 0.2, Ur Leukocyte Esterase Negative, Urine HCG, Qual Negative 03/23/17 23:10: Sodium 144, Potassium 4.1, Chloride 106, Carbon Dioxide 29, Anion Gap 13, BUN 20, Creatinine 0.9, Est GFR ( Amer) > 60, Est GFR (Non- Af Amer) > 60, Random Glucose 116 H, Calcium 8.7, Total Bilirubin 0.4, AST 36 D , ALT 41, Alkaline Phosphatase 83, Total Protein 7.6, Albumin 3.9, Globulin 3.6 , Albumin/Globulin Ratio 1.1 03/23/17 23:10: WBC 7.9 D, RBC 4.84, Hgb 12.8, Hct 40.6, MCV 83.9 D, MCH 26.4 , MCHC 31.5, RDW 17.4 H, Plt Count 257, MPV 10.6, Gran % 71.0 H, Lymph % (Auto) 20.1 L, [place] % (Auto) 7.7 H, Eos % (Auto) 0.9 L, Baso % (Auto) 0.3, Gran # 5.60 , Lymph # 1.6, [place] # 0.6, Eos # 0.1, Baso # 0.02 I have reviewed the lab results: Yes - EKG Interpretation Interpreted by ED Physician: Yes Type: 12 lead EKG - Medication Orders Current Medication Orders: Discontinued Medications Acetaminophen (Tylenol 325mg Tab) 975 mg PO STAT STA Stop: 03/23/17 23:57 Last Admin: 03/24/17 00:13 Dose: 975 mg MAR Pain/Vitals Document 03/24/17 00:13 [place] (Rec: 03/24/17 00:14 [id number] Pain Reassessment Is This A Pain ReAssessment? Yes Sleep Is patient sleeping during reassessment? No Presence of Pain Presence of Pain Yes Pain Scale Used Pain Scale Used Numeric Location Intensity 7 Re-Assess: MAR Pain/Vitals Document 03/24/17 01:13 SC (Rec: 03/24/17 01:41 [id number] Pain Reassessment Is This A Pain ReAssessment? Yes Sleep Is patient sleeping during reassessment? No Presence of Pain Presence of Pain Yes Pain Scale Used Pain Scale Used Numeric Location Intensity 4 Ketorolac Tromethamine (Toradol) 30 mg IVP STAT STA Stop: 03/23/17 22:57 Last Admin: 03/23/17 23:32 Dose: 30 mg [facility] Pain Assessment Document 03/23/17 23:32 SC (Rec: 03/23/17 23:33 [id number] Pain Reassessment Is this a pain reassessment? No Sleep Is patient sleeping during reassessment? No Presence of Pain Presence of Pain Yes Pain Scale Used Pain Scale Used Numeric Description Intensity of Pain at present 8 Acceptable Level of Pain 4 IVP Administration Document 03/23/17 23:32 SC (Rec: 03/23/17 23:33 [id number] Charges for Administration # of IVP Administrations 1 - Scribe Statement The provider has reviewed the documentation as recorded by the Gladis Grewal Provider Scribe Attestation: All medical record entries made by the Dishaibmelanie were at my direction and personally dictated by me. I have reviewed the chart and agree that the record accurately reflects my personal performance of the history, physical exam, medical decision making, and the department course for this patient. I have also personally directed, reviewed, and agree with the discharge instructions and disposition. Disposition/Present on Arrival - Present on Arrival Any Indicators Present on Arrival: No History of DVT/PE: Yes History of Uncontrolled Diabetes: No Urinary Catheter: No History of Decub. Ulcer: No History Surgical Site Infection Following: None - Disposition Have Diagnosis and Disposition been Completed?: Yes Diagnosis: Supratherapeutic INR, Body aches Disposition: HOME/ ROUTINE Disposition Time: 01:00 Condition: STABLE Discharge Instructions (ExitCare): Chronic Pain (ED), Elevated INR (ED) Additional Instructions: hold you warfarin for next 2 doses and discuss your results with your doctor. return to er with any concern. Prescriptions: Naproxen 500 mg PO BID PRN #14 tab PRN Reason: Pain, Mild (1-3) Referrals: Ilia Maxwell MD [Primary Care Provider] - Follow up with primary Forms: [employer] (Hebrew)
[2017-03-23 23:32] LABS: ALB/GLOB RATIO 1.1 (1.1-1.8); ALKALINE PHOSPHATASE 83 U/L (38-126); ALT/SGPT 41 U/L (7-56); AST/SGOT 36 U/L (14-36); BASO # 0.02 K/mm3 (0.0-2.0); BASO % 0.3 % (0.0-3.0); BILIRUBIN,TOTAL 0.4 mg/dL (0.2-1.3); BLOOD UREA NITROGEN 20 mg/dL (7-21); CALCIUM 8.7 mg/dL (8.4-10.5); CARBON DIOXIDE 29 mmol/L (21-33); CHLORIDE 106 mmol/L (98-107); EOS # 0.1 (0.0-0.7); EOS % 0.9 % (1.5-5.0); GFR AFRICAN-AMERICAN > 60; GLUCOSE,RANDOM 116 mg/dL (70-110); GRAN # 5.6 (1.4-6.5); HEMATOCRIT 40.6 % (36.0-48.0); LYMPH # 1.6 (1.2-3.4); LYMPH % 20.1 % (22.0-35.0); MEAN CORPUSCULAR HEMOGLOBIN 26.4 pg (25.0-35.0); MEAN CORPUSCULAR HGB CONC 31.5 g/dl (31.0-37.0); MEAN PLATELET VOLUME 10.6 fl (7.0-11.0); MONO # 0.6 (0.1-0.6); MONO % 7.7 % (1.0-6.0); POTASSIUM 4.1 mmol/L (3.6-5.0); RED CELL DISTRIBUTION WIDTH 17.4 % (11.5-14.5); SODIUM 144 mmol/L (132-148); TOTAL PROTEIN 7.6 g/dL (5.8-8.3); WHITE BLOOD COUNT 7.9 10^3/ul (4.5-11.0)
[2017-03-23 23:51] LABS: MEAN CELL VOLUME 83.9 fl (80.0-105.0)
[2017-03-24 00:16] LABS: URINE BILIRUBIN NEGATIVE (NEGATIVE); URINE BLOOD NEGATIVE (NEGATIVE); URINE GLUCOSE (UA) NEGATIVE (NEGATIVE); URINE KETONE NEGATIVE (NEGATIVE); URINE LEUKOCYTE ESTERASE NEGATIVE Leu/uL (NEGATIVE); URINE PROTEIN NEGATIVE mg/dL (<30 mg/dL); URINE UROBILINOGEN 0.2 E.U./dL (<1 E.U./dL)
[2017-03-24 00:17] LABS: URINE APPEARANCE CLEAR (CLEAR); URINE COLOR STRAW (YELLOW)
[2017-03-24 01:19] LABS: PARTIAL THROMBOPLASTIN TIME 62.4 Seconds (25.1-36.5)
[2017-03-24 01:21] LABS: INR 5.43 (0.93-1.08)
== END 2017-03-24 01:42 | disposition home or self-care (01) ==
LOC: ED 22:34
DX: R79.1 Abnormal coagulation profile (principal); R52 Pain, unspecified; I10 Essential (primary) hypertension; M32.9 Systemic lupus erythematosus, unspecified; I42.9 Cardiomyopathy, unspecified; Z87.891 Personal history of nicotine dependence; I50.9 Heart failure, unspecified; Z95.0 Presence of cardiac pacemaker; Z86.73 Personal history of transient ischemic attack (TIA), and cerebral infarction without residual deficits
CPT/HCPCS: 80053; 81003; 84703; 85025; 85610; 85730; 96374; 99284; J1885

== ENCOUNTER 2017-04-25 20:50 | Emergency (ER) | payer MEDICAID, MEDICARE, OTHER ==
[2017-04-25 20:50] VITALS: PULSE 98
[2017-04-25 20:56] VITALS: BMI 31.5
--- NOTE | 2017-04-25 21:29 | ED PDOC ---
Arrival/HPI - General Chief Complaint: Pain, Chronic Time Seen by Provider: 04/25/17 21:04 Historian: Patient - History of Present Illness Narrative History of Present Illness (Text): 04/25/17 21:24 Stephanie Siddiqui is a 51 year old female, whose past medical history includes lupus asthma, PE, cardiomyopathy (on primacor drip) , AICD/pacemaker, CVA, and GERD, who presents to the Emergency department complaining of generalized body aches today. Patient states feels "achy" and notes symptoms are consistent with usual lupus discomfort. Patient requesting Toradol for pain. Patient denies any fever, chills, chest pain, shortness of breath, nausea , vomiting, diarrhea, urinary symptoms, back pain, neck pain, headache, dizziness, or any other complaints. Time/Duration: Other (today) Symptom Onset: Gradual Symptom Course: Unchanged Activities at Onset: Light Context: Home Past Medical History - Provider Review Nursing Documentation Reviewed: Yes - Past History Past History: Non-Contributing - Infectious Disease Hx of Infectious Diseases: None - Tetanus Immunization Tetanus Immunization: Unknown - Past Medical History Past Medical History: Non-Contributing - Cardiac Hx Cardiac Disorders: Yes (cardiomyopathy,ACS) Hx Congestive Heart Failure: Yes Hx Hypertension: Yes Hx Internal Defibrillator: Yes Hx Pacemaker: Yes (X2) Other/Comment: Primacor drip - Pulmonary Hx Respiratory Disorders: Yes (pe) Hx Asthma: Yes Hx Pneumonia: Yes Other/Comment: h/o intubation,H/O + PPD - Neurological Hx Neurological Disorder: Yes HX Cerebrovascular Accident: Yes (X 2 ,16 ys ago, no residual) Hx Dizziness: Yes - HEENT Hx HEENT Disorder: Yes (eyeglasses, seasonal allergies) - Renal Hx Renal Disorder: No - Endocrine/Metabolic Hx Endocrine Disorders: Yes Hx Systemic Lupus Erythematosus: Yes - Hematological/Oncological Hx Blood Disorders: Yes (BREAST HEMATOMA) - Integumentary Hx Dermatological Disorder: Yes (SCARRING UNDER THE BREAST) - Musculoskeletal/Rheumatological Hx Musculoskeletal Disorders: Yes Hx Falls: Yes - Gastrointestinal Hx Gastrointestinal Disorders: Yes Hx Gastroesophageal Reflux: Yes - Genitourinary/Gynecological Hx Genitourinary Disorders: Yes (NON-MALIGNANT BREAST CALCIFICIATION) Other/Comment: UTERINE FIBROID - Psychiatric Hx Psychophysiologic Disorder: Yes (H/O SMOKING CIGARETTES 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 Right upper arm PICC - Anesthesia Hx Anesthesia: Yes - Suicidal Assessment Feels Threatened In Home Enviroment: No Family/Social History - Physician Review Nursing Documentation Reviewed: Yes Family/Social History: Unknown Family HX Smoking Status: Former Smoker Hx Alcohol Use: Yes (SOCIALLY QUIT) Hx Substance Use: No Hx Substance Use Treatment: No Allergies/Home Meds Allergies/Adverse Reactions: Allergies No Known Allergies Allergy (Verified 04/25/17 20:56) Home Medications: Home Meds Medication Instructions Recorded Confirmed Warfarin [Coumadin] 2 mg PO DAILY 11/03/15 04/12/17 ALPRAZolam [Xanax] 1 tab PO Q12 12/04/16 04/12/17 Albuterol HFA [Ventolin HFA 90 1 puff IH Q4H PRN 12/04/16 04/12/17 mcg/actuation (8 g)] Famotidine [Pepcid] 1 tab PO DAILY 12/04/16 04/12/17 Folic Acid 1 tab PO DAILY 12/04/16 04/12/17 Metoprolol Succinate [Toprol XL] 1 tab PO DAILY 12/04/16 04/12/17 Milrinone 20mg/100ml D5W [Primacor 0.5 mcg IV CONT 12/04/16 04/12/17 20mg/100ml D5W] Amiodarone [Cordarone] 200 mg PO DAILY 03/09/17 04/12/17 Bumetanide [Bumex] 1 mg PO DAILY 03/09/17 04/12/17 Cholecalciferol (Vitamin D3) 1 tab PO DAILY 03/09/17 04/12/17 [Vitamin D3] Ferrous Sulfate [Feosol] 325 mg PO DAILY 03/09/17 04/12/17 Hydrocortisone [Cortef] 10 mg PO DAILY 03/09/17 04/12/17 Isoniazid [Niazid] 300 mg PO DAILY 03/09/17 04/12/17 Lisinopril [Zestril] 2.5 mg PO DAILY 03/09/17 04/12/17 Potassium Chloride [Klor-Con] 20 meq PO DAILY 03/09/17 04/12/17 Pyridoxine [Vitamin B6] 50 mg PO DAILY 03/09/17 04/12/17 Review of Systems - Physician Review All systems were reviewed & negative as marked: Yes - Review of Systems Constitutional: Normal. absent: Fevers Eyes: Normal ENT: Normal Respiratory: Normal. absent: SOB, Cough Cardiovascular: Normal. absent: Chest Pain Gastrointestinal: Normal. absent: Abdominal Pain, Nausea, Vomiting Genitourinary Female: Normal. absent: Dysuria, Frequency, Hematuria, Urine Output Changes Musculoskeletal: Myalgias. absent: Back Pain, Neck Pain Skin: Normal. absent: Rash Neurological: Normal. absent: Headache, Dizziness Endocrine: Normal Hemo/Lymphatic: Normal Psychiatric: Normal Physical Exam Vital Signs Reviewed: Yes Vital Signs Temp Pulse Resp BP Pulse Ox 04/25/17 21:33 98.0 F 75 22 100/70 97 Temperature: Afebrile Blood Pressure: Normal Pulse: Regular Respiratory Rate: Normal Appearance: Positive for: Well-Appearing, Non-Toxic, Comfortable Pain Distress: None Mental Status: Positive for: Alert and Oriented X 3 - Systems Exam Head: Present: Atraumatic, Normocephalic Pupils: Present: PERRL Extroacular Muscles: Present: EOMI Conjunctiva: Present: Normal Mouth: Present: Moist Mucous Membranes Neck: Present: Normal Range of Motion Respiratory/Chest: Present: Clear to Auscultation, Good Air Exchange. No: Respiratory Distress, Accessory Muscle Use Cardiovascular: Present: Regular Rate and Rhythm, Normal S1, S2. No: Murmurs Abdomen: Present: Normal Bowel Sounds. No: Tenderness, Distention, Peritoneal Signs Back: Present: Normal Inspection Upper Extremity: Present: Normal Inspection. No: Cyanosis, Edema Lower Extremity: Present: Normal Inspection. No: Edema Neurological: Present: GCS=15, CN II-XII Intact, Speech Normal Skin: Present: Warm, Dry, Normal Color. No: Rashes Psychiatric: Present: Alert, Oriented x 3, Normal Insight, Normal Concentration Medical Decision Making ED Course and Treatment: 04/25/17 21:24 Impression: 51 year old female complaining of generalized body aches today. Differential Diagnosis included but are not limited to: chronic pain Plan: -- Labs -- Percocet -- Reassess and disposition Prior Visits: Notes and results from previous visits were reviewed. On 04/12/2017, pt was seen in the Emergency department for left flank/lower back pain. Pt was d/c home. Pt was d/c home. Progress Notes: 04/25/17 23:47 [place] [employer] reviewed, pt received Tylenol 3 on 04/08/2017. 04/25/17 23:57 On reevaluation the patient feels better and is in no acute distress. I have discussed the results and plan with the patient, who expresses understanding. Patient given the opportunity to ask question, all questions were answered and there is agreement with the plan to discharge the patient home. Patient is stable for discharge. Patient was instructed to follow up with physician/clinic in 1-2 days or return if symptoms persist/worsen or new concerning symptoms arise. - Lab Interpretations Lab Results: 04/25/17 22:08 04/25/17 22:08 Lab Results 04/25/17 22:08: Sodium 141, Potassium 4.7, Chloride 101, Carbon Dioxide 23, Anion Gap 22 H, BUN 28 H, Creatinine 1.2, Est GFR ( Amer) 58, Est GFR ( Non-Af Amer) 48, Random Glucose 109, Calcium 9.4 04/25/17 22:08: WBC 8.4, RBC 5.18, Hgb 13.9, Hct 43.3, MCV 83.6, MCH 26.8, MCHC 32.1, RDW 16.5 H, Plt Count 247, MPV 10.6 04/25/17 22:08: PT 27.5 H, INR 2.48 H, APTT 43.9 H - Medication Orders Current Medication Orders: Discontinued Medications Oxycodone/Acetaminophen (Percocet 5/325 Mg Tab) 1 tab PO STAT STA Stop: 04/25/17 21:36 Last Admin: 04/25/17 22:11 Dose: 1 tab MAR Pain Assessment Document 04/25/17 22:11 [email or web address] (Rec: 04/25/17 22:12 [email or web address] [id number]) Pain Reassessment Is this a pain reassessment? No Sleep Is patient sleeping during reassessment? No Presence of Pain Presence of Pain Yes Pain Scale Used Pain Scale Used Numeric Location Pain Location Body Site Generalized Description Description Constant Intensity of Pain at present 8 Pain Behavior Facial Grimacing Aggravating Factors Changing Position Alleviating Factors/Management Medication Techniques Alleviating Factors Medication - Scribe Statement The provider has reviewed the documentation as recorded by the Scribe Katie Ty Provider Scribe Attestation: All medical record entries made by the Scribe were at my direction and personally dictated by me. I have reviewed the chart and agree that the record accurately reflects my personal performance of the history, physical exam, medical decision making, and the department course for this patient. I have also personally directed, reviewed, and agree with the discharge instructions and disposition. Disposition/Present on Arrival - Present on Arrival Any Indicators Present on Arrival: No History of DVT/PE: Yes History of Uncontrolled Diabetes: No Urinary Catheter: No History of Decub. Ulcer: No History Surgical Site Infection Following: None - Disposition Have Diagnosis and Disposition been Completed?: Yes Diagnosis: Lupus, Chronic pain Disposition: HOME/ ROUTINE Disposition Time: 23:57 Patient Plan: Discharge Patient Problems: Current Active Problems Problem Status Onset Chronic pain Acute Lupus Acute Condition: GOOD Additional Instructions: Medication as prescribed/follow up with your doctor this week Prescriptions: Acetaminophen/Codeine [Tylenol/Codeine 300 MG/30 MG] 1 tab PO Q4H PRN #12 tab PRN Reason: Pain, Moderate (4-7) Referrals: Ilia Maxwell MD [Primary Care Provider] - Follow up with primary Forms: [employer] (Libyan)
[2017-04-25] MEDS ORDERED: Oxycodone/Acetaminophen 5/325 mg Tab PO STA (21:35)
[2017-04-25 21:36] VITALS: BP 100/70; TEMP 98
[2017-04-25 22:17] LABS: HEMATOCRIT 43.3 % (36.0-48.0); MEAN CELL VOLUME 83.6 fl (80.0-105.0); MEAN CORPUSCULAR HEMOGLOBIN 26.8 pg (25.0-35.0); MEAN CORPUSCULAR HGB CONC 32.1 g/dl (31.0-37.0); MEAN PLATELET VOLUME 10.6 fl (7.0-11.0); RED CELL DISTRIBUTION WIDTH 16.5 % (11.5-14.5); WHITE BLOOD COUNT 8.4 10^3/ul (4.5-11.0)
[2017-04-25 22:33] LABS: CALCIUM 9.4 mg/dL (8.4-10.5); POTASSIUM 4.7 mmol/L (3.6-5.0)
[2017-04-25 22:41] LABS: INR 2.48 (0.93-1.08)
[2017-04-25 22:42] LABS: PARTIAL THROMBOPLASTIN TIME 43.9 Seconds (25.1-36.5)
[2017-04-26 00:32] VITALS: PULSE 78; RESP 19
[2017-04-26 00:33] VITALS: O2SAT 98
== END 2017-04-26 00:33 | disposition home or self-care (01) ==
LOC: ED 20:50
DX: M32.9 Systemic lupus erythematosus, unspecified (principal); G89.29 Other chronic pain; I10 Essential (primary) hypertension; I42.9 Cardiomyopathy, unspecified; Z95.0 Presence of cardiac pacemaker; Z87.891 Personal history of nicotine dependence

== ENCOUNTER 2017-04-26 12:20 | Emergency (ER) | payer OTHER ==
[2017-04-26 12:20] VITALS: PULSE 98
[2017-04-26 12:31] VITALS: TEMP 98.1; BMI 31.3
--- NOTE | 2017-04-26 13:16 | ED PDOC ---
Arrival/HPI <Clary Knox - Last Filed: 04/26/17 17:37> - General Historian: Patient - History of Present Illness Time/Duration: 1-3 hours Symptom Onset: Gradual Symptom Course: Unchanged Severity Level: Moderate Activities at Onset: Rest <Sagar Ferrari - Last Filed: 04/26/17 17:50> - General Chief Complaint: Headache Time Seen by Provider: 04/26/17 12:26 - History of Present Illness Narrative History of Present Illness (Text): 04/26/17 13:12 This is a 51 yo female with past medical hx of lupus, cardiomyopathy, on milrinone pump, stroke, defibrillator/pacemaker, presenting to ER with chief complaint of body aches x 2 days. patient was just in ER last night for same complaint. She was given pain med and discharged home. She reports the pain subsided last night but came back this morning. It was not going away so she came in. She describes diffuse body aches all over. She says this has happened numerous times before. She also reports headache, located at top of head, gradual in onset. She did not take any medications at home for her pain. PMH: lupus (dx age 21), cardiomyopathy, on milrinone pump, stroke PSH: defibrillator/pacemaker Allergies: NKDA FH: Denies Social hx: former smoker. denies drinking, drug use. does not work. (Sagar Ferrari) Past Medical History - Provider Review Nursing Documentation Reviewed: Yes - Travel History Have you recently traveled outside [place] w/in the past 3 mons?: No - Infectious Disease Hx of Infectious Diseases: None - Tetanus Immunization Tetanus Immunization: Unknown - Reproductive Menopause: No - Cardiac Hx Cardiac Disorders: Yes (cardiomyopathy,ACS) Hx Congestive Heart Failure: Yes Hx Hypertension: Yes Hx Internal Defibrillator: Yes Hx Pacemaker: Yes (X2) Other/Comment: Primacor drip - Pulmonary Hx Respiratory Disorders: Yes (pe) Hx Asthma: Yes Hx Pneumonia: Yes Other/Comment: h/o intubation,H/O + PPD - Neurological Hx Neurological Disorder: Yes HX Cerebrovascular Accident: Yes (X 2 ,16 ys ago, no residual) Hx Dizziness: Yes - HEENT Hx HEENT Disorder: Yes (eyeglasses, seasonal allergies) - Renal Hx Renal Disorder: No - Endocrine/Metabolic Hx Endocrine Disorders: Yes Hx Systemic Lupus Erythematosus: Yes - Hematological/Oncological Hx Blood Disorders: Yes (BREAST HEMATOMA) - Integumentary Hx Dermatological Disorder: Yes (SCARRING UNDER THE BREAST) - Musculoskeletal/Rheumatological Hx Musculoskeletal Disorders: Yes Hx Falls: Yes - Gastrointestinal Hx Gastrointestinal Disorders: Yes Hx Gastroesophageal Reflux: Yes - Genitourinary/Gynecological Hx Genitourinary Disorders: Yes (NON-MALIGNANT BREAST CALCIFICIATION) Other/Comment: UTERINE FIBROID - Psychiatric Hx Psychophysiologic Disorder: Yes (H/O SMOKING CIGARETTES 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 Right upper arm PICC - Anesthesia Hx Anesthesia: Yes - Suicidal Assessment Feels Threatened In Home Enviroment: No <Sagar Ferrari - Last Filed: 04/26/17 17:50> Family/Social History - Physician Review Nursing Documentation Reviewed: Yes Family/Social History: No Known Family HX Smoking Status: Former Smoker Hx Alcohol Use: Yes (SOCIALLY QUIT) Hx Substance Use: No Hx Substance Use Treatment: No <Sagar Ferrari - Last Filed: 04/26/17 17:50> Allergies/Home Meds <Clary Knox - Last Filed: 04/26/17 17:37> <Sagar Ferrari - Last Filed: 04/26/17 17:50> Allergies/Adverse Reactions: Allergies No Known Allergies Allergy (Verified 04/25/17 20:56) Home Medications: Home Meds Medication Instructions Recorded Confirmed Warfarin [Coumadin] 2 mg PO DAILY 11/03/15 04/26/17 ALPRAZolam [Xanax] 1 tab PO Q12 12/04/16 04/26/17 Albuterol HFA [Ventolin HFA 90 1 puff IH Q4H PRN 12/04/16 04/26/17 mcg/actuation (8 g)] Famotidine [Pepcid] 1 tab PO DAILY 12/04/16 04/26/17 Folic Acid 1 tab PO DAILY 12/04/16 04/26/17 Metoprolol Succinate [Toprol XL] 1 tab PO DAILY 12/04/16 04/26/17 Milrinone 20mg/100ml D5W [Primacor 0.5 mcg IV CONT 12/04/16 04/26/17 20mg/100ml D5W] Amiodarone [Cordarone] 200 mg PO DAILY 03/09/17 04/26/17 Bumetanide [Bumex] 1 mg PO DAILY 03/09/17 04/26/17 Cholecalciferol (Vitamin D3) 1 tab PO DAILY 03/09/17 04/26/17 [Vitamin D3] Ferrous Sulfate [Feosol] 325 mg PO DAILY 03/09/17 04/26/17 Hydrocortisone [Cortef] 10 mg PO DAILY 03/09/17 04/26/17 Isoniazid [Niazid] 300 mg PO DAILY 03/09/17 04/26/17 Potassium Chloride [Klor-Con] 20 meq PO DAILY 03/09/17 04/26/17 Pyridoxine [Vitamin B6] 50 mg PO DAILY 03/09/17 04/26/17 Review of Systems - Review of Systems Constitutional: Fatigue. absent: Fevers, Night Sweats Eyes: absent: Vision Changes, Eye Pain ENT: absent: Hearing Changes, Tinnitus Respiratory: absent: SOB, Cough Cardiovascular: absent: Chest Pain, Palpitations Gastrointestinal: absent: Abdominal Pain, Stool Changes Genitourinary Female: absent: Dysuria, Frequency Musculoskeletal: Arthralgias, Back Pain, Myalgias Skin: absent: Rash, Pruritis Neurological: Headache Endocrine: absent: Diaphoresis, Polyuria Hemo/Lymphatic: absent: Adenopathy, Easy Bleeding <Sagar Ferrari - Last Filed: 04/26/17 17:50> Physical Exam Vital Signs Reviewed: Yes Mental Status: Positive for: Alert and Oriented X 3 - Systems Exam Head: Present: Atraumatic, Normocephalic Pupils: Present: PERRL Extroacular Muscles: Present: EOMI Conjunctiva: Present: Normal Mouth: Present: Moist Mucous Membranes Neck: Present: Normal Range of Motion. No: Meningeal Signs, JVD Respiratory/Chest: Present: Clear to Auscultation. No: Respiratory Distress Cardiovascular: Present: Regular Rate and Rhythm, Normal S1, S2 Abdomen: Present: Normal Bowel Sounds. No: Tenderness, Distention, Peritoneal Signs Upper Extremity: Present: Normal Inspection. No: Cyanosis, Edema Lower Extremity: Present: Normal Inspection. No: Edema, CALF TENDERNESS Neurological: Present: CN II-XII Intact, Speech Normal Skin: Present: Warm, Dry Psychiatric: Present: Alert, Oriented x 3, Normal Concentration <Sagar Ferrari - Last Filed: 04/26/17 17:50> Vital Signs Temp Pulse Resp BP Pulse Ox 04/26/17 15:38 75 18 105/78 98 04/26/17 13:39 79 18 103/75 98 04/26/17 12:30 98.1 F 81 18 101/70 98 Medical Decision Making <Clary Knox - Last Filed: 04/26/17 17:37> <Sagar Ferrari - Last Filed: 04/26/17 17:50> ED Course and Treatment: 04/26/17 17:39 Patient seen and examined with resident with complaining of slow onset headache with no acute neuro findings. CT brain with no acute findings. Labs done just last night with no acute findings; patient instructed to f/u her pmd and c2 tactical analysis technician. (Clary Knox) - RAD Interpretation Radiology Orders: 04/26/17 12:59 HEAD W/O CONTRAST [CT] Stat - Medication Orders Current Medication Orders: Discontinued Medications Ketorolac Tromethamine (Toradol) 60 mg IM STAT STA Stop: 04/26/17 13:01 Last Admin: 04/26/17 14:09 Dose: 60 mg MAR Pain Assessment Document 04/26/17 14:09 DC (Rec: 04/26/17 14:09 [id number]) Pain Reassessment Is this a pain reassessment? No IM Administration Charges Document 04/26/17 14:09 HI (Rec: 04/26/17 14:09 [id number]) Injection Site MAR Injection Site Left Arm Charges for Administration # of IM Administrations 1 - PA / COLLEGE TUTOR / Resident Statement MD/DO has reviewed & agrees with the documentation as recorded. /DO has examined the patient and agrees with the treatment plan. <Clary Knox - Last Filed: 04/26/17 17:37> Disposition/Present on Arrival - Present on Arrival Any Indicators Present on Arrival: No - Disposition Have Diagnosis and Disposition been Completed?: Yes Disposition Time: 17:40 Patient Plan: Transfer To <Clary Knox - Last Filed: 04/26/17 17:37> - Present on Arrival Any Indicators Present on Arrival: No History of DVT/PE: No History of Uncontrolled Diabetes: No Urinary Catheter: No History of Decub. Ulcer: No History Surgical Site Infection Following: None - Disposition Have Diagnosis and Disposition been Completed?: Yes <Sagar Ferrari - Last Filed: 04/26/17 17:50> - Disposition Diagnosis: Headache, Body aches Disposition: HOME/ ROUTINE Patient Problems: Current Active Problems Problem Status Onset Headache Acute Body aches Acute Condition: GOOD Additional Instructions: Follow up with your c2 tactical analysis technician and primary care doctor. Return to the emergency department if any new concerning symptoms. Referrals: Ilia Maxwell MD [Primary Care Provider] - Follow up with primary Forms: [employer] (Tunisian)
--- NOTE | 2017-04-26 17:49 | CT ---
PROCEDURE: CT HEAD WITHOUT CONTRAST. HISTORY: headache COMPARISON: 03/09/2017 and 03/04/2016 TECHNIQUE: Axial computed tomography images were obtained through the head/brain without intravenous contrast. Radiation dose: Total exam DLP = 1605.51 mGy-cm. This CT exam was performed using one or more of the following dose reduction techniques: Automated exposure control, adjustment of the mA and/or kV according to patient size, and/or use of iterative reconstruction technique. FINDINGS: HEMORRHAGE: No intracranial hemorrhage. BRAIN: No intracranial mass. Widening of both sylvian fissures, left greater than right. This is unchanged. This may reflect bold perisylvian infarcts, particularly on the left. There is probable old left medial cerebellar infarct. There is old right temporal occipital infarct. There is an old lacunar infarct of the right thalamus and an old large lacune of the left lentiform nucleus. No evidence of acute infarct. VENTRICLES: Unremarkable. No hydrocephalus. CALVARIUM: Unremarkable. PARANASAL SINUSES: Unremarkable as visualized. No significant inflammatory changes. MASTOID AIR CELLS: Unremarkable as visualized. No inflammatory changes. OTHER FINDINGS: None. IMPRESSION: No evidence of acute infarct. No intracranial hemorrhage. Multiple old infarcts unchanged from 03/09/2017 and 03/04/2016.
[2017-04-26 18:06] VITALS: BP 106/78; PULSE 70; RESP 16; O2SAT 100
== END 2017-04-26 18:05 | disposition home or self-care (01) ==
LOC: ED 12:20
DX: R51 Headache (principal); M79.1 Myalgia; I11.9 Hypertensive heart disease without heart failure; Z95.0 Presence of cardiac pacemaker; Z87.891 Personal history of nicotine dependence
CPT/HCPCS: 70450; 96372; 99285; J1885

== ENCOUNTER 2017-05-06 08:39 | Emergency (ER) | payer OTHER, MEDICAID ==
[2017-05-06 08:39] VITALS: PULSE 98
[2017-05-06 08:42] VITALS: BMI 28.3
--- NOTE | 2017-05-06 09:08 | ED PDOC ---
Arrival/HPI - General Chief Complaint: Shortness Of Breath Time Seen by Provider: 05/06/17 08:45 Historian: Patient - History of Present Illness Narrative History of Present Illness (Text): 05/06/17 09:03 A 51 year old female, whose past medical history includes lupus, cardiomyopathy , on milrinone pump, stroke, defibrillator/pacemaker, presents to the emergency department for several day duration generalized weakness and shortness of breath. The patient states that she has experienced these symptoms before. The patient denies fevers, chills, headache, dizziness, chest pain, dyspnea on exertion, cough, abdominal pain, nausea, vomiting, diarrhea, back pain, neck pain, urinary/bowel changes, or any other complaint. PMD: Dr. Juan M Maxwell Time/Duration: Other (Several days) Symptom Onset: Sudden Symptom Course: Unchanged Activities at Onset: Light Context: Home Past Medical History - Provider Review Nursing Documentation Reviewed: Yes - Past History Past History: Non-Contributing - Infectious Disease Hx of Infectious Diseases: None - Tetanus Immunization Tetanus Immunization: Unknown - Reproductive Menopause: Yes - Past Medical History Past Medical History: Non-Contributing - Cardiac Hx Cardiac Disorders: Yes (cardiomyopathy,ACS) Hx Congestive Heart Failure: Yes Hx Hypertension: Yes Hx Internal Defibrillator: Yes Hx Pacemaker: Yes (X2) Other/Comment: Primacor drip - Pulmonary Hx Respiratory Disorders: Yes (pe) Hx Asthma: Yes Hx Pneumonia: Yes Other/Comment: h/o intubation,H/O + PPD - Neurological Hx Neurological Disorder: Yes HX Cerebrovascular Accident: Yes (X 2 ,16 ys ago, no residual) Hx Dizziness: Yes - HEENT Hx HEENT Disorder: Yes (eyeglasses, seasonal allergies) - Renal Hx Renal Disorder: No - Endocrine/Metabolic Hx Endocrine Disorders: Yes Hx Systemic Lupus Erythematosus: Yes - Hematological/Oncological Hx Blood Disorders: Yes (BREAST HEMATOMA) - Integumentary Hx Dermatological Disorder: Yes (SCARRING UNDER THE BREAST) - Musculoskeletal/Rheumatological Hx Musculoskeletal Disorders: Yes Hx Falls: Yes - Gastrointestinal Hx Gastrointestinal Disorders: Yes Hx Gastroesophageal Reflux: Yes - Genitourinary/Gynecological Hx Genitourinary Disorders: Yes (NON-MALIGNANT BREAST CALCIFICIATION) Other/Comment: UTERINE FIBROID - Psychiatric Hx Psychophysiologic Disorder: Yes (H/O SMOKING CIGARETTES 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 Right upper arm PICC - Anesthesia Hx Anesthesia: Yes Hx Anesthesia Reactions: No Hx Malignant Hyperthermia: No - Suicidal Assessment Feels Threatened In Home Enviroment: No Family/Social History - Physician Review Nursing Documentation Reviewed: Yes Family/Social History: No Known Family HX Smoking Status: Former Smoker Hx Alcohol Use: Yes (SOCIALLY QUIT) Hx Substance Use: No Hx Substance Use Treatment: No Allergies/Home Meds Allergies/Adverse Reactions: Allergies No Known Allergies Allergy (Verified 05/06/17 08:54) Home Medications: Home Meds Medication Instructions Recorded Confirmed Warfarin [Coumadin] 2 mg PO DAILY 11/03/15 05/06/17 Milrinone 20mg/100ml D5W [Primacor 0.5 mcg IV CONT 12/04/16 05/06/17 20mg/100ml D5W] Cholecalciferol (Vitamin D3) 1 tab PO DAILY 03/09/17 05/06/17 [Vitamin D3] Potassium Chloride [Klor-Con] 20 meq PO DAILY 03/09/17 05/06/17 Lisinopril [Zestril] 2.5 mg PO DAILY 05/06/17 05/06/17 Review of Systems - Physician Review All systems were reviewed & negative as marked: Yes - Review of Systems Constitutional: absent: Fevers, Night Sweats Respiratory: SOB Cardiovascular: absent: Chest Pain, [place] Gastrointestinal: absent: Abdominal Pain, Stool Changes, Diarrhea, Nausea, Vomiting Genitourinary Female: absent: Urine Output Changes Musculoskeletal: absent: Back Pain, Neck Pain Neurological: Other (Generalized Weakness.). absent: Headache, Dizziness Physical Exam Vital Signs Temp Pulse Resp BP Pulse Ox 05/06/17 11:06 69 18 101/61 99 05/06/17 09:38 98 05/06/17 08:39 97.7 F 70 18 86/59 L 99 Temperature: Afebrile Blood Pressure: Hypotensive Pulse: Regular Respiratory Rate: Normal Appearance: Positive for: Well-Appearing, Non-Toxic, Comfortable Pain Distress: None Mental Status: Positive for: Alert and Oriented X 3 - Systems Exam Head: Present: Atraumatic, Normocephalic Pupils: Present: PERRL Extroacular Muscles: Present: EOMI Conjunctiva: Present: Normal Mouth: Present: Moist Mucous Membranes Neck: Present: Normal Range of Motion Respiratory/Chest: Present: Other (Mild crackles at the bases.) Cardiovascular: Present: Regular Rate and Rhythm, Normal S1, S2. No: Murmurs Abdomen: Present: Normal Bowel Sounds. No: Tenderness, Distention, Peritoneal Signs Back: Present: Normal Inspection Upper Extremity: Present: Normal Inspection. No: Cyanosis, Edema Lower Extremity: Present: Normal Inspection. No: Edema Neurological: Present: GCS=15, CN II-XII Intact, Speech Normal Skin: Present: Warm, Dry, Normal Color. No: Rashes Psychiatric: Present: Alert, Oriented x 3, Normal Insight, Normal Concentration Medical Decision Making ED Course and Treatment: 05/06/17 09:14 Impression: A 51 year old female presents to the emergency department complaining of generalized weakness and shortness of breath. Plan: -- EKG -- Chest X-ray -- Labs -- Urinalysis -- Reassess and disposition Prior Visits: Notes and results from previous visits were reviewed. Patient was last seen in the emergency department on 04/26/2017. The patient was seen in the emergency department with a complaint of 2 day duration body aches. The patient was discharged home. Progress Notes: EKG: Ordered, reviewed, and independently interpreted the EKG. Rate : 69 BPM Rhythm : NSR Interpretation : 1st degree AV block. Non- Specific ST-T wave changes. CHEST X-RAY Dictator : Char Oquendo MD Report Date : 05/06/2017 10:32:58 IMPRESSION: No acute findings. 05/06/17 11:31: Patient's BNP is at her baseline. The patient was offered admission, but she declined. She states that she feels well enough to go home. - Lab Interpretations Lab Results: 05/06/17 09:45 05/06/17 09:45 Lab Results 05/06/17 09:45: Sodium 140, Potassium 4.4, Chloride 103, Carbon Dioxide 27, Anion Gap 14, BUN 22 H, Creatinine 1.1, Est GFR ( Amer) > 60, Est GFR ( Non-Af Amer) 53, Random Glucose 107, Calcium 8.9, Magnesium 1.9, Total Bilirubin 0.5, AST 35, ALT 27, Alkaline Phosphatase 81, Lactate Dehydrogenase 619, Total Creatine Kinase 25 L, Troponin I < 0.01, NT-Pro-B Natriuret Pep 1790 H, Total Protein 8.2, Albumin 4.1, Globulin 4.1, Albumin/Globulin Ratio 1.0 L 05/06/17 09:45: Urine Color Yellow, Urine Appearance Clear, Urine pH 6.0, Ur Specific [place] 1.015, Urine Protein Negative, Urine Glucose (UA) Negative, Urine Ketones Negative, Urine Blood Negative, Urine Nitrate Negative, Urine Bilirubin Negative, Urine Urobilinogen 0.2, Ur Leukocyte Esterase Negative, Urine HCG, Qual Negative 05/06/17 09:45: WBC 7.4, RBC 4.93, Hgb 13.1, Hct 42.0, MCV 85.2, MCH 26.6, MCHC 31.2, RDW 16.8 H, Plt Count 233, MPV 11.1 H, Gran % 77.9 H, Lymph % (Auto) 14.3 L, Noble % (Auto) 6.6 H, Eos % (Auto) 1.1 L, Baso % (Auto) 0.1, Gran # 5.77, Lymph # 1.1 L, Noble # 0.5, Eos # 0.1, Baso # 0.01 I have reviewed the lab results: Yes - RAD Interpretation Radiology Orders: 05/06/17 09:02 CHEST PORTABLE [RAD] Stat - EKG Interpretation Interpreted by ED Physician: Yes Type: 12 lead EKG - Medication Orders Current Medication Orders: Discontinued Medications Ketorolac Tromethamine (Toradol) 30 mg IVP STAT STA Stop: 05/06/17 10:47 Last Admin: 05/06/17 11:00 Dose: 30 mg MAR Pain Assessment Document 05/06/17 11:00 CAROL (Rec: 05/06/17 11:01 CAROL [id number]) Pain Reassessment Is this a pain reassessment? Yes Presence of Pain Presence of Pain Yes Pain Scale Used Pain Scale Used Numeric Location Pain Location Body Site Generalized Description Intensity of Pain at present 8 Pain Behavior Facial Grimacing IVP Administration Document 05/06/17 11:00 CAROL (Rec: 05/06/17 11:01 CAROL [id number]) Charges for Administration # of IVP Administrations 1 - Scribe Statement The provider has reviewed the documentation as recorded by the Scribe Vanita Hedrick Provider Gladis Attestation: All medical record entries made by the Dishaibmelanie were at my direction and personally dictated by me. I have reviewed the chart and agree that the record accurately reflects my personal performance of the history, physical exam, medical decision making, and the department course for this patient. I have also personally directed, reviewed, and agree with the discharge instructions and disposition. Disposition/Present on Arrival - Present on Arrival Any Indicators Present on Arrival: No History of DVT/PE: No History of Uncontrolled Diabetes: No Urinary Catheter: No History of Decub. Ulcer: No History Surgical Site Infection Following: None - Disposition Have Diagnosis and Disposition been Completed?: Yes Diagnosis: CHF (congestive heart failure), Body aches Disposition: HOME/ ROUTINE Disposition Time: 11:00 Condition: STABLE Discharge Instructions (ExitCare): Heart Failure (ED), Heart Failure (DC) Additional Instructions: please follow up with your doctor. return to er with worsening symptoms or concerns Referrals: Ilia Maxwell MD [Primary Care Provider] - Follow up with primary Forms: [employer] (Malay)
[2017-05-06 09:51] LABS: URINE BILIRUBIN NEGATIVE (NEGATIVE); URINE BLOOD NEGATIVE (NEGATIVE); URINE GLUCOSE (UA) NEGATIVE (NEGATIVE); URINE KETONE NEGATIVE (NEGATIVE); URINE LEUKOCYTE ESTERASE NEGATIVE Leu/uL (NEGATIVE); URINE PROTEIN NEGATIVE mg/dL (<30 mg/dL); URINE UROBILINOGEN 0.2 E.U./dL (<1 E.U./dL)
[2017-05-06 09:53] LABS: BASO # 0.01 K/mm3 (0.0-2.0); BASO % 0.1 % (0.0-3.0); EOS # 0.1 (0.0-0.7); EOS % 1.1 % (1.5-5.0); GRAN # 5.77 (1.4-6.5); GRAN % 77.9 % (50.0-68.0); LYMPH # 1.1 (1.2-3.4); LYMPH % 14.3 % (22.0-35.0); MEAN CELL VOLUME 85.2 fl (80.0-105.0); MEAN CORPUSCULAR HEMOGLOBIN 26.6 pg (25.0-35.0); MEAN CORPUSCULAR HGB CONC 31.2 g/dl (31.0-37.0); MEAN PLATELET VOLUME 11.1 fl (7.0-11.0); MONO # 0.5 (0.1-0.6); MONO % 6.6 % (1.0-6.0); RED CELL DISTRIBUTION WIDTH 16.8 % (11.5-14.5); WHITE BLOOD COUNT 7.4 10^3/ul (4.5-11.0)
[2017-05-06 09:54] LABS: URINE APPEARANCE CLEAR (CLEAR); URINE COLOR YELLOW (YELLOW)
[2017-05-06 10:16] LABS: TROPONIN I < 0.01 ng/mL
[2017-05-06 10:31] VITALS: RESP 18; TEMP 97.7
--- NOTE | 2017-05-06 10:34 | RAD ---
HISTORY: Shortness of breath COMPARISON: 03/09/2017 FINDINGS: The right PICC line terminates at the cavoatrial junction. LUNGS: The lungs are well inflated. There are chronic changes in both lower lobes. PLEURA: No significant pleural effusion identified, no pneumothorax apparent. CARDIOVASCULAR: The heart is normal in size. There is stable position of a left-sided AICD. OSSEOUS STRUCTURES: No significant abnormalities. VISUALIZED UPPER ABDOMEN: Normal. OTHER FINDINGS: None. IMPRESSION: No acute findings.
[2017-05-06 10:43] LABS: ALKALINE PHOSPHATASE 81 U/L (38-126); ALT/SGPT 27 U/L (7-56); AST/SGOT 35 U/L (14-36); BILIRUBIN,TOTAL 0.5 mg/dL (0.2-1.3); BLOOD UREA NITROGEN 22 mg/dL (7-21); CALCIUM 8.9 mg/dL (8.4-10.5); CARBON DIOXIDE 27 mmol/L (21-33); CHLORIDE 103 mmol/L (98-107); GFR AFRICAN-AMERICAN > 60; GLUCOSE,RANDOM 107 mg/dL (70-110); MAGNESIUM 1.9 mg/dL (1.7-2.2); POTASSIUM 4.4 mmol/L (3.6-5.0); SODIUM 140 mmol/L (132-148); TOTAL PROTEIN 8.2 g/dL (5.8-8.3)
[2017-05-06 11:07] VITALS: BP 101/61; PULSE 69; O2SAT 99
--- NOTE | 2017-05-06 17:28 | CARD ---
APPROVED REPORT EKG Measurement Heart [id number] <Conclusion> Sinus rhythm with 1st degree AV block Possible Left atrial enlargement Left axis deviation Inferior infarct, age undetermined Possible Anterolateral infarct, age undetermined Prolonged QT Abnormal ECG
== END 2017-05-06 11:30 | disposition home or self-care (01) ==
LOC: ED 08:39
DX: I11.0 Hypertensive heart disease with heart failure (principal); I50.9 Heart failure, unspecified; M79.1 Myalgia; Z95.0 Presence of cardiac pacemaker; Z87.891 Personal history of nicotine dependence
CPT/HCPCS: 71010; 80053; 81003; 82550; 83615; 83735; 83880; 84484; 84703; 85025; 93005; 96374; 99285; J1885

== ENCOUNTER 2017-05-30 05:58 | Inpatient (IN) | payer MEDICARE, MEDICAID ==
[2017-05-30 05:59] VITALS: PULSE 98; BMI 28.3
--- NOTE | 2017-05-30 06:25 | ED PDOC ---
Arrival/HPI - General Chief Complaint: Flu-like Symptoms Time Seen by Provider: 05/30/17 05:59 - History of Present Illness Narrative History of Present Illness (Text): 05/30/17 06:10 51 female, hx of chf, on milrinone, pe on warfarin, presents with cough, congestion, body aches since yesterday. subjective fevers. did not get flu shot. pt reports mild sob. no sick contacts. 05/30/17 06:12 Past Medical History - Past History Past History: Non-Contributing - Infectious Disease Hx of Infectious Diseases: None - Tetanus Immunization Tetanus Immunization: Unknown - Past Medical History Past Medical History: Non-Contributing - Cardiac Hx Cardiac Disorders: Yes (cardiomyopathy,ACS) Hx Congestive Heart Failure: Yes Hx Hypertension: Yes Hx Internal Defibrillator: Yes Hx Pacemaker: Yes (X2) Other/Comment: Primacor drip - Pulmonary Hx Respiratory Disorders: Yes (pe) Hx Asthma: Yes Hx Pneumonia: Yes Other/Comment: h/o intubation,H/O + PPD - Neurological Hx Neurological Disorder: Yes HX Cerebrovascular Accident: Yes (X 2 ,16 ys ago, no residual) Hx Dizziness: Yes - HEENT Hx HEENT Disorder: Yes (eyeglasses, seasonal allergies) - Renal Hx Renal Disorder: No - Endocrine/Metabolic Hx Endocrine Disorders: Yes Hx Systemic Lupus Erythematosus: Yes - Hematological/Oncological Hx Blood Disorders: Yes (BREAST HEMATOMA) - Integumentary Hx Dermatological Disorder: Yes (SCARRING UNDER THE BREAST) - Musculoskeletal/Rheumatological Hx Musculoskeletal Disorders: Yes Hx Falls: Yes - Gastrointestinal Hx Gastrointestinal Disorders: Yes Hx Gastroesophageal Reflux: Yes - Genitourinary/Gynecological Hx Genitourinary Disorders: Yes (NON-MALIGNANT BREAST CALCIFICIATION) Other/Comment: UTERINE FIBROID - Psychiatric Hx Psychophysiologic Disorder: Yes (H/O SMOKING CIGARETTES 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 Right upper arm PICC - Anesthesia Hx Anesthesia: Yes Hx Anesthesia Reactions: No Hx Malignant Hyperthermia: No - Suicidal Assessment Feels Threatened In Home Enviroment: No Family/Social History - Physician Review Nursing Documentation Reviewed: Yes Family/Social History: Unknown Family HX Smoking Status: Former Smoker Hx Alcohol Use: Yes (SOCIALLY QUIT) Hx Substance Use: No Hx Substance Use Treatment: No Allergies/Home Meds Allergies/Adverse Reactions: Allergies tramadol [From Ultram] Adverse Reaction (Unknown, Verified 05/30/17 16:34) NAUSEA Home Medications: Home Meds Medication Instructions Recorded Confirmed Warfarin [Coumadin] 2 mg PO DAILY 11/03/15 05/30/17 Milrinone 20mg/100ml D5W [Primacor 3.1 rc .ROUTE CONT 12/04/16 05/30/17 20mg/100ml D5W] Cholecalciferol (Vitamin D3) 1 tab PO DAILY 03/09/17 05/30/17 [Vitamin D3] Potassium Chloride [Klor-Con] 20 meq PO DAILY 03/09/17 05/30/17 Lisinopril [Zestril] 2.5 mg PO DAILY 05/06/17 05/30/17 Famotidine 20 mg PO BID 05/30/17 05/30/17 Metoprolol 25 mg PO HS 05/30/17 05/30/17 Xanax 0.25 mg PO QID PRN 05/30/17 05/30/17 Review of Systems - Review of Systems Constitutional: Normal Eyes: Normal ENT: Normal Respiratory: SOB, Cough Cardiovascular: Normal Gastrointestinal: Normal Genitourinary Female: Normal Musculoskeletal: Normal Skin: Normal Neurological: Normal Endocrine: Normal Hemo/Lymphatic: Normal Psychiatric: Normal Physical Exam Vital Signs Temp Pulse Resp BP Pulse Ox 05/30/17 09:39 67 90/63 L 05/30/17 08:00 97.7 F 67 18 92/64 L 99 05/30/17 06:20 97.7 F 66 18 94/60 L 99 Temperature: Afebrile Blood Pressure: Normal Pulse: Regular Respiratory Rate: Normal Appearance: Positive for: Well-Appearing, Non-Toxic, Comfortable Pain Distress: None Mental Status: Positive for: Alert and Oriented X 3 - Systems Exam Head: Present: Atraumatic, Normocephalic Pupils: Present: PERRL Extroacular Muscles: Present: EOMI Conjunctiva: Present: Normal Mouth: Present: Moist Mucous Membranes Neck: Present: Normal Range of Motion Respiratory/Chest: Present: Good Air Exchange, Rales (at bases). No: Respiratory Distress, Accessory Muscle Use Cardiovascular: Present: Regular Rate and Rhythm, Normal S1, S2. No: Murmurs Abdomen: Present: Normal Bowel Sounds. No: Tenderness, Distention, Peritoneal Signs Back: Present: Normal Inspection Upper Extremity: Present: Normal Inspection. No: Cyanosis, Edema Lower Extremity: Present: Normal Inspection. No: Edema Neurological: Present: GCS=15, CN II-XII Intact, Speech Normal Skin: Present: Warm, Dry, Normal Color. No: Rashes Psychiatric: Present: Alert, Oriented x 3, Normal Insight, Normal Concentration Medical Decision Making ED Course and Treatment: 05/30/17 06:26 ro pna chf influenza. labs imaging pendign. 05/30/17 19:32 signed out to day shift all labs imaging pendign. - Lab Interpretations Lab Results: 05/30/17 07:15 05/30/17 07:15 Lab Results 05/30/17 07:30: Iron 53, TIBC 281, % Saturation 19 L 05/30/17 07:30: Triglycerides 90, Cholesterol 232 H, LDL Cholesterol Direct 163 H, HDL Cholesterol 42, Vitamin B12 Pending, Folate Pending 05/30/17 07:15: Urine HCG, Qual Negative 05/30/17 07:15: Influenza Typ A,B (EIA) Negative for flu a/b 05/30/17 07:15: Sodium 142, Potassium 3.3 L, Chloride 106, Carbon Dioxide 26, Anion Gap 14, BUN 25 H, Creatinine 1.1, Est GFR ( Amer) > 60, Est GFR ( Non-Af Amer) 53, Random Glucose 90, Calcium 8.9, Magnesium 2.0, Total Bilirubin 0.3, AST 29, ALT 32, Alkaline Phosphatase 82, Lactate Dehydrogenase 563, Total Creatine Kinase 106, Troponin I 0.02 D, NT-Pro-B Natriuret Pep 1900 H, Total Protein 7.8, Albumin 3.8, Globulin 4.1, Albumin/Globulin Ratio 0.9 L 05/30/17 07:15: Urine Color Yellow, Urine Appearance Cloudy, Urine pH 6.0, Ur Specific [place] 1.025, Urine Protein Trace H, Urine Glucose (UA) Negative, Urine Ketones Negative, Urine Blood Large H, Urine Nitrate Negative, Urine Bilirubin Negative, Urine Urobilinogen 0.2, Ur Leukocyte Esterase Trace H, Urine RBC 2 - 5, Urine WBC 2 - 5, Ur Epithelial Cells 6 - 8, Urine Bacteria Few 05/30/17 07:15: PT 45.1 H, INR 3.99 H*, APTT 49.7 H 05/30/17 07:15: WBC 5.1 D, RBC 4.75, Hgb 12.7, Hct 40.0, MCV 84.2, MCH 26.7, MCHC 31.8, RDW 15.7 H, Plt Count 211, MPV 10.6, Gran % 52.1, Lymph % (Auto) 31.1 , [place] % (Auto) 12.5 H, Eos % (Auto) 4.1, Baso % (Auto) 0.2, Gran # 2.67, Lymph # 1.6, [place] # 0.6, Eos # 0.2, Baso # 0.01 - RAD Interpretation Radiology Orders: 05/30/17 06:50 CXR [CHEST PORTABLE] [RAD] Stat - Medication Orders Current Medication Orders: Acetaminophen (Tylenol 325mg Tab) 325 mg PO TID PRN PRN Reason: Pain, Mild (1-3) Alprazolam (Xanax) 0.25 mg PO TID PRN; Protocol PRN Reason: Anxiety Stop: 06/06/17 18:01 Last Admin: 05/30/17 17:48 Dose: 0.25 mg Behavioural Document 05/30/17 17:48 EDMUNDO (Rec: 05/30/17 17:48 [facility] [id number]) Maintenance Maintenance Dose Yes Cholecalciferol (Vitamin D) 1,000 intlu PO DAILY ANA LILIA Doxycycline Hyclate (Doryx) 100 mg PO Q12 ANA LILIA PRN Reason: Protocol Furosemide (Lasix) 40 mg IV DAILY ANA LILIA Milrinone Lactate/Dextrose (Primacor 20mg/100ml D5w) 100 mls @ 9.032 mls/hr IV .Q11H5M PRN; Protocol; 0.375 MCG/KG/MIN PRN Reason: TITRATE PER MD ORDER Last Admin: 05/30/17 16:43 Dose: 0.375 mcg/kg/min, 9.032 mls/hr eMAR Start Stop Document 05/30/17 16:43 EDMUNDO (Rec: 05/30/17 16:44 CENTRA [id number]) Intravenous Solution Start Date 05/30/17 Start Time 16:44 Titration Intervention Document 05/30/17 16:43 EDMUNDO (Rec: 05/30/17 16:44 CENTRA [id number]) Titration Intake Cumulative Intake (Rx) 100 Waste Amount 0 Container Volume 100 Titration Dosing Titration Dose 0.375 IV Rate 9.032 Intake/Decrease Started/Running Cumulative Dose 20 Meropenem (Merrem Iv 1 Gm Premix) 50 mls @ 100 mls/hr IVPB Q8 ANA LILIA PRN Reason: Protocol Stop: 06/08/17 14:01 Last Admin: 05/30/17 13:17 Dose: 100 mls/hr eMAR Start Stop Document 05/30/17 13:17 EDMUNDO (Rec: 05/30/17 13:17 CENTRA [id number]) Intravenous Solution Start Date 05/30/17 Start Time 13:17 End Date 05/30/17 End time 13:47 Total Infusion Time 30 Ibuprofen (Motrin Tab) 200 mg PO TID ANA LILIA Last Admin: 05/30/17 17:48 Dose: 200 mg MAR Pain/Vitals Document 05/30/17 17:48 EDMUNDO (Rec: 05/30/17 17:48 CENTRA [id number]) Pain Reassessment Is This A Pain ReAssessment? No Sleep Is patient sleeping during reassessment? No Presence of Pain Presence of Pain Yes Location Description Constant Lisinopril (Zestril) 2.5 mg PO DAILY [facility] Last Admin: 05/30/17 11:00 Dose: Not Given Non-Admin Reason: BP Parameters Not Met Methylprednisolone (Solu-Medrol) 30 mg IVP Q12 ANA LILIA Potassium Chloride (K-Dur 20 Meq Er Tab) 20 meq PO BRK ANA LILIA Promethazine HCl (Phenergan Syrup) 12.5 mg PO TID PRN PRN Reason: Cough Last Admin: 05/30/17 13:10 Dose: 12.5 mg Discontinued Medications Cholecalciferol (Vitamin D) 1 intlu PO DAILY ANA LILIA Furosemide (Lasix) 40 mg IV ONCE ONE Stop: 05/30/17 12:08 Last Admin: 05/30/17 12:40 Dose: Not Given Non-Admin Reason: BP Parameters Not Met Vancomycin HCl 2 gm/ Sodium (Chloride) 500 mls @ 170 mls/hr IVPB ONCE ONE PRN Reason: Protocol Stop: 05/30/17 15:14 Last Admin: 05/30/17 13:17 Dose: 170 mls/hr eMAR Start Stop Document 05/30/17 13:17 JW (Rec: 05/30/17 13:18 JW [id number]) Intravenous Solution Start Date 05/30/17 Start Time 13:18 End Date 05/30/17 End time 14:48 Total Infusion Time 90 Ketorolac Tromethamine (Toradol) 30 mg IVP STAT STA Stop: 05/30/17 06:38 Last Admin: 05/30/17 07:03 Dose: 30 mg MAR Pain Assessment Document 05/30/17 07:03 SS (Rec: 05/30/17 07:03 SS [id number]) Pain Reassessment Is this a pain reassessment? No Sleep Is patient sleeping during reassessment? No Presence of Pain Presence of Pain Yes IVP Administration Document 05/30/17 07:03 SS (Rec: 05/30/17 07:03 SS [id number]) Charges for Administration # of IVP Administrations 1 Potassium Chloride (K-Dur 20 Meq Er Tab) 20 meq PO DAILY AN ALILIA Potassium Chloride (K-Dur 20 Meq Er Tab) 20 meq PO ONCE ONE Stop: 05/30/17 12:09 Last Admin: 05/30/17 13:08 Dose: 20 meq Potassium Chloride (K-Dur 20 Meq Er Tab) 40 meq PO DAILY ANA LILIA Potassium Chloride (K-Dur 20 Meq Er Tab) 40 meq PO ONCE ONE Stop: 05/30/17 15:01 Last Admin: 05/30/17 16:23 Dose: 40 meq Tramadol HCl (Ultram) 50 mg PO TID [facility] Last Admin: 05/30/17 16:28 Dose: Not Given Non-Admin Reason: Allergy Tramadol HCl (Ultram) 50 mg PO STAT STA Stop: 05/30/17 11:19 Last Admin: 05/30/17 16:13 Dose: Not Given Non-Admin Reason: Patient Asleep Disposition/Present on Arrival - Present on Arrival Any Indicators Present on Arrival: No History of DVT/PE: No History of Uncontrolled Diabetes: No Urinary Catheter: No History of Decub. Ulcer: No History Surgical Site Infection Following: None - Disposition Have Diagnosis and Disposition been Completed?: Yes Diagnosis: Shortness of breath, Acute on chronic diastolic CHF (congestive heart failure) , Viral syndrome, Dehydration, Weakness Disposition: HOSPITALIZED Disposition Time: 07:00 Patient Problems: Current Active Problems Problem Status Onset Acute on chronic diastolic CHF (congestive heart failure) Acute Dehydration Acute Shortness of breath Acute Viral syndrome Acute Weakness Acute Condition: STABLE
--- NOTE | 2017-05-30 07:23 | ED PDOC ---
Physical Exam Vital Signs Reviewed: Yes Vital Signs Temp Pulse Resp BP Pulse Ox 05/30/17 08:00 97.7 F 67 18 92/64 L 99 05/30/17 06:20 97.7 F 66 18 94/60 L 99 Temperature: Afebrile Blood Pressure: Hypotensive (mildly decr BP) Pulse: Regular Respiratory Rate: Normal Appearance: Positive for: Well-Appearing, Non-Toxic, Comfortable Pain Distress: None Mental Status: Positive for: Alert and Oriented X 3 - Systems Exam Head: Present: Atraumatic, Normocephalic Pupils: Present: PERRL, Other (wearing eyeglasses; no nystagmus, no photophobia , sclera anicteric) Extroacular Muscles: Present: EOMI Conjunctiva: Present: Normal Ears: Present: Normal Mouth: Present: Other (dry oral mucosa, intact dentitions, no drooling/stridor, no dysphonia) Pharnyx: Present: Other (no dysphonia). No: Muffled/Hoarse Voice, Strider Nose (External): Present: Atraumatic Neck: Present: Normal Range of Motion, Trachea Midline. No: MIDLINE TENDERNESS Respiratory/Chest: Present: Clear to Auscultation, Good Air Exchange. No: Respiratory Distress, Accessory Muscle Use Cardiovascular: Present: Regular Rate and Rhythm, Normal S1, S2. No: Murmurs Abdomen: Present: Normal Bowel Sounds. No: Tenderness, Distention, Peritoneal Signs Back: Present: Normal Inspection Upper Extremity: Present: Normal Inspection. No: Cyanosis, Edema Lower Extremity: Present: Normal Inspection. No: Edema Neurological: Present: GCS=15, CN II-XII Intact, Speech Normal Skin: Present: Warm, Dry, Normal Color. No: Rashes Psychiatric: Present: Alert, Oriented x 3, Normal Insight, Normal Concentration Medical Decision Making ED Course and Treatment: 05/30/17 07:22 Case signed out to me. Pending labs, chest xray, reassessment and final disposition. 05/30/17 08:22 pt continues to complain of weakness/diffuse malaise and easily fatigued pt's vital signs indicate slight hypotension pt is not in resp distress however pt is made aware of her medical results given pt's multiple comorbidies, will recommend patient for admission/ observation pt is in agreement paging corporate travel consultant PMD for admission initially spoke to Dr Ralph Ramos, hospitalists corporate travel consultant, b/c pt has insurance, suggests to page corporate travel consultant PCP 05/30/17 08:[address] Tariq, corporate travel consultant PCP, made aware, agrees with admission, would like consults placed for Dr Lopez/Henri Re-evaluation Time: 08:23 Reassessment Condition: Improving,but remains with symptoms - Lab Interpretations Lab Results: 05/30/17 07:15 05/30/17 07:15 Lab Results 05/30/17 07:15: Urine HCG, Qual Negative 05/30/17 07:15: Influenza Typ A,B (EIA) Negative for flu a/b 05/30/17 07:15: Sodium 142, Potassium 3.3 L, Chloride 106, Carbon Dioxide 26, Anion Gap 14, BUN 25 H, Creatinine 1.1, Est GFR ( Amer) > 60, Est GFR ( Non-Af Amer) 53, Random Glucose 90, Calcium 8.9, Magnesium 2.0, Total Bilirubin 0.3, AST 29, ALT 32, Alkaline Phosphatase 82, Lactate Dehydrogenase 563, Total Creatine Kinase 106, Troponin I 0.02 D, NT-Pro-B Natriuret Pep 1900 H, Total Protein 7.8, Albumin 3.8, Globulin 4.1, Albumin/Globulin Ratio 0.9 L 05/30/17 07:15: Urine Color Yellow, Urine Appearance Cloudy, Urine pH 6.0, Ur Specific [place] 1.025, Urine Protein Trace H, Urine Glucose (UA) Negative, Urine Ketones Negative, Urine Blood Large H, Urine Nitrate Negative, Urine Bilirubin Negative, Urine Urobilinogen 0.2, Ur Leukocyte Esterase Trace H, Urine RBC 2 - 5, Urine WBC 2 - 5, Ur Epithelial Cells 6 - 8, Urine Bacteria Few 05/30/17 07:15: PT 45.1 H, INR 3.99 H*, APTT 49.7 H 05/30/17 07:15: WBC 5.1 D, RBC 4.75, Hgb 12.7, Hct 40.0, MCV 84.2, MCH 26.7, MCHC 31.8, RDW 15.7 H, Plt Count 211, MPV 10.6, Gran % 52.1, Lymph % (Auto) 31.1 , [place] % (Auto) 12.5 H, Eos % (Auto) 4.1, Baso % (Auto) 0.2, Gran # 2.67, Lymph # 1.6, [place] # 0.6, Eos # 0.2, Baso # 0.01 elevated BNP, decr K I have reviewed the lab results: Yes Interpretation: Abnormal lab values - RAD Interpretation Radiology Orders: 05/30/17 06:50 CXR [CHEST PORTABLE] [RAD] Stat + cardiac device, cardiomeagly, right basiliar atelectasis noted, mild pulm vasc congestion noted, as read by me Transportation Consultant: ED Physician - EKG Interpretation EKG Interpretation (Text): 05/30/17 08:25 junctional rhythm at 70 bpm, LAD, qs in leads II/F, inverted T in leads V1-2, V5 -6, no st changes, ABNL EKG; mild changes compare with old ekg 05/201705/30/17 08:27 Interpreted by ED Physician: Yes Type: 12 lead EKG Comparison: Similar to previous EKG - Medication Orders Current Medication Orders: Discontinued Medications Ketorolac Tromethamine (Toradol) 30 mg IVP STAT STA Stop: 05/30/17 06:38 Last Admin: 05/30/17 07:03 Dose: 30 mg MAR Pain Assessment Document 05/30/17 07:03 SS (Rec: 05/30/17 07:03 SS [id number]) Pain Reassessment Is this a pain reassessment? No Sleep Is patient sleeping during reassessment? No Presence of Pain Presence of Pain Yes IVP Administration Document 05/30/17 07:03 SS (Rec: 05/30/17 07:03 SS [id number]) Charges for Administration # of IVP Administrations 1 - Scribe Statement The provider has reviewed the documentation as recorded by the Gladis Grewal Provider Scribe Attestation: All medical record entries made by the Scribe were at my direction and personally dictated by me. I have reviewed the chart and agree that the record accurately reflects my personal performance of the history, physical exam, medical decision making, and the department course for this patient. I have also personally directed, reviewed, and agree with the discharge instructions and disposition. Disposition/Present on Arrival - Present on Arrival Any Indicators Present on Arrival: No History of DVT/PE: Yes History of Uncontrolled Diabetes: No Urinary Catheter: No History of Decub. Ulcer: No History Surgical Site Infection Following: None - Disposition Have Diagnosis and Disposition been Completed?: Yes Diagnosis: Shortness of breath, Acute on chronic diastolic CHF (congestive heart failure) , Viral syndrome, Dehydration, Weakness Disposition: HOSPITALIZED Disposition Time: 08:27 Patient Plan: Admission, Telemetry Patient Problems: Current Active Problems Problem Status Onset Shortness of breath Acute Acute on chronic diastolic CHF (congestive heart failure) Acute Viral syndrome Acute Dehydration Acute Weakness Acute Condition: STABLE Discharge Instructions (ExitCare): Heart Failure (ED), Weakness (ED) Referrals: Ilia Maxwell MD [Primary Care Provider] - Follow up with primary Forms: [employer] (French)
[2017-05-30 07:29] LABS: BASO # 0.01 K/mm3 (0.0-2.0); BASO % 0.2 % (0.0-3.0); EOS # 0.2 (0.0-0.7); EOS % 4.1 % (1.5-5.0); GRAN # 2.67 (1.4-6.5); GRAN % 52.1 % (50.0-68.0); HEMOGLOBIN 12.7 g/dL (12.0-16.0); LYMPH # 1.6 (1.2-3.4); LYMPH % 31.1 % (22.0-35.0); MEAN CELL VOLUME 84.2 fl (80.0-105.0); MEAN CORPUSCULAR HEMOGLOBIN 26.7 pg (25.0-35.0); MEAN CORPUSCULAR HGB CONC 31.8 g/dl (31.0-37.0); MEAN PLATELET VOLUME 10.6 fl (7.0-11.0); MONO # 0.6 (0.1-0.6); MONO % 12.5 % (1.0-6.0); RBC 4.75 10^6/uL (3.5-6.1); RED CELL DISTRIBUTION WIDTH 15.7 % (11.5-14.5); WHITE BLOOD COUNT 5.1 10^3/ul (4.5-11.0)
[2017-05-30 07:31] LABS: URINE BILIRUBIN NEGATIVE (NEGATIVE); URINE BLOOD LARGE (NEGATIVE); URINE GLUCOSE (UA) NEGATIVE (NEGATIVE); URINE LEUKOCYTE ESTERASE TRACE Leu/uL (NEGATIVE); URINE NITRATE NEGATIVE (NEGATIVE); URINE PROTEIN TRACE mg/dL (<30 mg/dL); URINE UROBILINOGEN 0.2 E.U./dL (<1 E.U./dL)
[2017-05-30 07:38] LABS: ALB/GLOB RATIO 0.9 (1.1-1.8); ALBUMIN 3.8 g/dL (3.0-4.8); ALT/SGPT 32 U/L (7-56); AST/SGOT 29 U/L (14-36); BLOOD UREA NITROGEN 25 mg/dL (7-21); CALCIUM 8.9 mg/dL (8.4-10.5); GFR AFRICAN-AMERICAN > 60; GFR NON-AFRICAN AMERICAN 53
[2017-05-30 07:49] LABS: B-TYPE NATRIURETIC PEPTIDE 1900 pg/mL (0-450); TROPONIN I 0.02 ng/mL
[2017-05-30 07:51] LABS: PARTIAL THROMBOPLASTIN TIME 49.7 Seconds (25.1-36.5); PROTHROMBIN TIME 45.1 SECONDS (9.4-12.5)
[2017-05-30 07:53] LABS: INR 3.99 (0.93-1.08)
[2017-05-30 07:57] LABS: URINE APPEARANCE CLOUDY (CLEAR); URINE COLOR YELLOW (YELLOW)
[2017-05-30 08:03] LABS: URINE BACTERIA FEW (NEG)
[2017-05-30] MEDS: Milrinone 20mg/100ml D5W 100 ML IV PRN ×2 (09:39→16:43)
[2017-05-30] MEDS ORDERED: POTASSIUM CHLORIDE 20 MEQ PO SCH (10:00)
[2017-05-30] MEDS ORDERED: DEXTROSE SCH (10:00)
[2017-05-30] MEDS ORDERED: MILRINONE 20 MG/100 ML SCH (10:00)
[2017-05-30] MEDS ORDERED: WARFARIN 2 MG PO SCH (10:00)
[2017-05-30] MEDS ORDERED: Non Formulary Medication (Cholecalciferol (Vitamin D3) [Vitamin D3] 1 TAB) PO SCH (10:00)
[2017-05-30] MEDS ORDERED: Cholecalciferol 1,000 INTLU TAB PO SCH (10:15)
[2017-05-30] MEDS ORDERED: Potassium Chloride 20 mEq ER Tab PO SCH ×2 (10:15→13:00)
--- NOTE | 2017-05-30 11:40 | RAD ---
HISTORY: Cough. Portable study 07:10 COMPARISON: 05/06/2017 FINDINGS: LUNGS: No active pulmonary disease. PLEURA: No significant pleural effusion identified, no pneumothorax apparent. CARDIOVASCULAR: No radiographic findings to suggest acute or significant cardiovascular disease. Position/ configuration of pacemaker device: Satisfactory. OSSEOUS STRUCTURES: No significant abnormalities. VISUALIZED UPPER ABDOMEN: Normal. OTHER FINDINGS: None. IMPRESSION: No active disease. No significant interval change compared to the prior examination(s).
[2017-05-30] MEDS ORDERED: Potassium Chloride 20 mEq ER Tab PO ONE ×2 (12:08→15:00)
[2017-05-30] MEDS ORDERED: Vancomycin 2 GM in Sodium Chloride 0.9% 500 ML IVPB ONE (12:18)
[2017-05-30] MEDS: Promethazine 6.25 MG/5 ML CUP PO PRN (13:10)
[2017-05-30] MEDS: Meropenem IV 1 gm in NS 50 ML IVPB SCH ×2 (13:17→21:14)
[2017-05-30 16:56] LABS: HDL CHOLESTEROL 42 mg/dL (29-60)
[2017-05-30 17:05] LABS: TOTAL IRON BINDING CAPACITY 281 ug/dL (265-497)
[2017-05-30 17:06] LABS: LDL CHOLESTEROL 163 mg/dL (0-129)
[2017-05-30 17:08] LABS: % IRON SATURATION 19 % (20-55); IRON 53 ug/dL (45-180)
[2017-05-30 18:55] LABS: COMPLEMENT C4 35.3 mg/dL (14.0-44.0)
[2017-05-30] MEDS: MethylPREDNISolone 40 mg Vial IVP SCH (21:12)
--- NOTE | 2017-05-30 23:21 | CON ---
DATE: 05/30/2017 CARDIAC EVALUATION: Cardiomyopathy, is status post AICD, history of nonischemic cardiomyopathy, admitted with flu-like symptoms BRIEF CLINICAL HISTORY: This is a 51-year-old female with past medical history significant for nonischemic cardiomyopathy. status post AICD, on heart transplant list, admitted with flu-like symptoms, whole body ache, cough, a feverish feeling, and generalized body ache, and feels congestion. Her past history is significant for SLE; prior stroke; history of patent foramen ovale; ASD; right-sided weakness; on Coumadin; history of AICD, initially placed 2004 in [place], and then recently generator change [place] [address] 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 Initially, the patient was on LifeVest, on milrinone at home and Coumadin, came in with complain of flu-like symptoms. The patient did not get her flu shot this year, feels congestion, body feverish feeling, no definite temperature, so came to the emergency room. Denies any chest pain. Denies any palpitation. Denies any shortness of breath. 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 Four years ago generator was changed in [address] Kahn at [facility], and recently the patient had infection of the defibrillator, ruling to have endocarditis, so it was removed and the patient's LifeVest and put single chamber VVI. Later on, recently, the pacemaker was placed in the mid axillary line. History of patent foramen ovale and ASD, and was on Coumadin, and they have been told that they are not concerned with patent foramen ovale because the patient is on Coumadin and the patient is on a transplant list at [facility] and also follows for the transplant in heart failure at [facility]. PAST SURGICAL HISTORY: Significant for section; history of defibrillator, initially placed in 2003 in [facility]. Later on generator change in 2012, history of removal of defibrillator and then placed a single chamber VVI later on, mid axillary line defibrillator was placed. Before that, the patient was on LifeVest. SOCIAL HISTORY: Every now and then, the patient smoked. Denies any history of alcohol abuse. Denies any history of substance abuse. CURRENT MEDICATIONS: The patient is at home on milrinone possibly 0.5 mcg, continue 0.5 mcg/kg versus 0.375, is delivered at home. Taking Coumadin, potassium, chloride, lisinopril, and vitamin D3. ALLERGIES: NO KNOWN DRUG ALLERGIES. REVIEW OF SYSTEMS: As per HPI. Most recently, the patient had echo on 03/05/2016 done in [facility], that showed ejection fraction of 10% to 15%, moderate mitral regurgitation, moderate tricuspid regurgitation, RV systolic pressure 37. PHYSICAL EXAMINATION: VITAL SIGNS: Temperature afebrile, heart rate 76, blood pressure 95/61. HEENT: PERRLA. Extraocular muscles intact. NECK: Supple. No carotid bruits or thyromegaly. CHEST: Clear to auscultation. HEART: S1 and S2 regular. ABDOMEN: Soft. EXTREMITIES: Clubbing and cyanosis negative. LABORATORY DATA: Blood workup as follows, WBC 5.1, hemoglobin 12.7, hematocrit 40.0, platelet count 211. INR today is 3.99. Chemistry shows sodium 140, potassium 3.3, chloride 106, carbon dioxide 26, anion gap of 14, BUN 25, and creatinine 1.1. Troponin 0.02. BNP 1900. Chest x-ray shows defibrillator in the left axillary line and the pacemaker in left clavicular line. No acute congestion noted. Maybe mild some CSF changes, but chronic, nothing acute. EKG showed possible AFib, fluent, moderate rate. No acute STT changes noted. Poor RR progression. IMPRESSION: Have flu-like symptoms, mild congestion, elevated brain natriuretic peptide, possibly on chronic atrial fibrillation, nonischemic cardiomyopathy, history of automatic implantable cardioverter defibrillator placed 2003, history of systemic lupus erythematosus, history of anticoagulation, supratherapeutic INR, last echocardiogram showing ejection fraction of 10% to 15%, on transplant list, history of atrial septal defect. RECOMMENDATION: Continue diet. Continue milrinone. Hold anticoagulation. Supplement electrolytes. We will get echo to assess LV function. We will follow. CVA status is stable. Does not appear subacute follow with you. Thank you, Dr. Tariq, for providing us the opportunity in taking care of Stephanie Siddiqui. Roberto Jones MD
--- NOTE | 2017-05-31 01:03 | CON ---
PULMONARY CONSULTATION DATE: 05/30/2017 REFERRING PHYSICIAN: Estelle Tariq MD REASON FOR CONSULTATION: Shortness of breath, cough, and rhinitis. HISTORY OF PRESENT ILLNESS: This is a 51-year-old female who carry a diagnosis of severe cardiomyopathy, milrinone dependent, on anticoagulation, and history of lupus. According to the patient the last 2 days or so, she had been having rhinitis, cough, and facial discomfort. No nausea. No vomiting. No diarrhea. No leg pain or leg swelling. PAST MEDICAL HISTORY: Cardiomyopathy, SLE, hypertension, chronic lung disease, has AICD, history of CVA, and GERD. SOCIAL HISTORY: Stopped smoking few years ago. Denies any alcohol use. ALLERGIES: NONE KNOWN. FAMILY HISTORY: No significant cardiopulmonary disease reported. MEDICATIONS: The patient is on potassium 20 mEq daily, Lasix 40 mg daily, meropenem 1 g IV q.8 hours, Motrin 20 mg three times a day, promethazine 12.5 mg three times a day p.r.n. IV Primacor , Tylenol p.r.n., vitamin D 1000 units daily, Xanax 0.25 mg three times a day p.r.n., and Zestril 2.5 mg daily. REVIEW OF SYSTEMS: Has facial discomfort, rhinitis, postnasal drip, cough, and shortness of breath. No chest pain. No dysuria. No leg pain or leg swelling. PHYSICAL EXAMINATION: GENERAL: Sitting up at the side of the bed, in no acute distress. VITAL SIGNS: Temperature is 98, heart rate is 77, respiratory rate is 20, blood pressure is 110/71, and pulse ox 99% on nasal cannula. HEENT: Moist mucous membranes. Crowded airway. Has a tenderness. NECK: Supple. No JVD. LUNGS: Has a fair airflow with rhonchi. HEART: S1 and S2. ABDOMEN: Soft and nontender. No organomegaly. EXTREMITIES: There is no edema. NEUROLOGIC: Awake and alert and follows simple commands. LABORATORY DATA: Shows hemoglobin 12.7, hematocrit 40.0, WBC 5.1, an platelet count is 211. INR 3.99. Sodium 142, potassium 3.3, chloride 106, bicarbonate 26, BUN 25, creatinine 1.1, glucose 131, calcium is 88.9, magnesium 2.0, iron is 53, TIBC 281, AST 29, ALT 32, and alk phos is 82. Troponin less than 0.02. ProBNP 1900, albumin 3.8, triglyceride is 90, and cholesterol is 232. Vitamin B12 and folate is pending. Chest x-ray done in the ER shows no active pulmonary disease. IMPRESSION AND PLAN: Probably a viral syndrome with exacerbation of chronic lung disease, has a severe cardiomyopathy, milrinone dependent, history of hypertension, and history of lupus. According to the patient, lupus has been stable and she is not on any medications. Agree with the present management. We will add inhaled bronchodilator. May add doxycycline twice a day and Solu-Medrol. We will send influenza A and B testing. Continue anticoagulation. Keep INR 2.5. Thank you and we will follow with you. Roberto Mcarthur MD
[2017-05-31] MEDS: Milrinone 20mg/100ml D5W 100 ML IV PRN ×2 (02:41→16:02)
[2017-05-31] MEDS: Meropenem IV 1 gm in NS 50 ML IVPB SCH ×3 (05:04→21:47)
[2017-05-31] MEDS: Promethazine 6.25 MG/5 ML CUP PO PRN (05:12)
[2017-05-31 07:12] LABS: GRAN # 4.88 (1.4-6.5); GRAN % 85.3 % (50.0-68.0); HEMOGLOBIN 12.1 g/dL (12.0-16.0); LYMPH # 0.8 (1.2-3.4); LYMPH % 13.3 % (22.0-35.0); MEAN CELL VOLUME 84.7 fl (80.0-105.0); MEAN CORPUSCULAR HEMOGLOBIN 26.4 pg (25.0-35.0); MEAN CORPUSCULAR HGB CONC 31.1 g/dl (31.0-37.0); MEAN PLATELET VOLUME 10.6 fl (7.0-11.0); MONO # 0.1 (0.1-0.6); MONO % 1.4 % (1.0-6.0); RBC 4.59 10^6/uL (3.5-6.1); RED CELL DISTRIBUTION WIDTH 15.8 % (11.5-14.5); WHITE BLOOD COUNT 5.7 10^3/ul (4.5-11.0)
[2017-05-31 07:30] LABS: ALBUMIN 3.7 g/dL (3.0-4.8); ALT/SGPT 26 U/L (7-56); AST/SGOT 24 U/L (14-36); BLOOD UREA NITROGEN 23 mg/dL (7-21); CALCIUM 8.6 mg/dL (8.4-10.5); GFR AFRICAN-AMERICAN > 60; GFR NON-AFRICAN AMERICAN > 60
[2017-05-31 07:32] LABS: PROTHROMBIN TIME 43.1 SECONDS (9.4-12.5)
[2017-05-31 07:36] LABS: INR 3.81 (0.93-1.08)
[2017-05-31] MEDS ORDERED: Potassium Chloride 20 mEq ER Tab PO SCH (08:00)
--- NOTE | 2017-05-31 09:02 | HP ---
CHIEF COMPLAINT: Shortness of breath and fatigue. HISTORY OF PRESENT ILLNESS: Mrs. Joel Brown is a 51-year-old female came into [facility] Emergency Room with flu-like symptoms. The patient is on milrinone, history of PE on warfarin, came with coughing, congestion, and body aches since yesterday, subjective fever, missed the flu shot this year, has mild shortness of breath, feeling fatigue, and tired. No sick contact as per the patient. No nausea, vomiting, or diarrhea. No hematuria. No hematochezia. No swelling of the leg. No chest pain. PAST MEDICAL HISTORY: Cardiomyopathy, congestive heart failure, hypertension, internal defibrillator, pacemaker x2, is on Primacor drip, history of PE, asthma, pneumonia, history of intubation, positive PPD, history of CVA x2 16 years ago, no residual, history of lupus erythematosus, breast hematoma, scarring under the breast, history of fall, anxiety, depression, and panic attacks. FAMILY HISTORY: Father and mother noncontributory. HABITS: Former smoker, now quit. Alcohol socially, quit. Substance abuse; none. ALLERGIES: THE PATIENT IS NOT ALLERGIC WITH ANY MEDICATIONS. HOME MEDICATIONS: Coumadin,milrinone, vitamin D, potassium, and Zestril. REVIEW OF SYSTEMS: The patient is seen and examined in her room on the bedside, feeling fatigue and tired. No fever. No chills. Sometimes feeling shortness of breath also. No hematuria. No hematochezia. PHYSICAL EXAMINATION: VITAL SIGNS: Temperature 97.5, pulse 71, blood pressure 94/59, respiratory rate 18, and pulse oximetry 94. HEENT: Head is normocephalic and atraumatic. Eyes; PERRLA. Extraocular muscles are intact. Conjunctivae clear. Nose patent. Mucous membranes moist. NECK: Supple. No carotid bruit, JVD, or thyromegaly. CHEST: Bilaterally symmetrical. HEART: S1 and S2 positive. LUNGS: Clear to auscultation. ABDOMEN: Soft. Bowel sounds present. No organomegaly. EXTREMITIES: No edema. No cyanosis. NEUROLOGICAL: The patient is awake and alert. Moving all four extremities. No focal deficits. LABORATORY DATA: White blood cell 5.1, hemoglobin 12.7, hematocrit noted and platelets 211. Sodium 142, potassium 3.3, BUN 25, creatinine 1.1, glucose 90, and BNP 1900. ASSESSMENT AND PLAN: Mrs. Joel Brown is a 51-year-old lady with hypokalemia, increased BUN, congestive heart failure, and INR 3.99, is on Coumadin. I hold Coumadin today, having atrial fibrillation and pulmonary embolism, proteinuria, hematuria, and influenza test is negative. Discussion done with Dr. Juan Carlos Baum, shortness of breath, acute on chronic diastolic congestive heart failure, viral syndrome, and dehydration. Readmitted the patient, give pain medications, and started home medications. Consult call with Dr. Mcarthur for shortness of breath, Dr. Lopez for congestive heart failure, Dr. Snowden to rule out viral syndrome. Replace the potassium. Dr. Snowden started the patient on meropenem and vancomycin. Gastrointestinal and deep venous thrombosis prophylaxis. Repeat labs. We will follow. Estelle Tariq MD [facility]
[2017-05-31] MEDS: MethylPREDNISolone 40 mg Vial IVP SCH ×2 (10:07→21:19)
[2017-05-31] MEDS: Cholecalciferol 1,000 INTLU TAB PO SCH (10:07)
[2017-05-31 11:46] LABS: FOLATE > 20.0 ng/mL
--- NOTE | 2017-05-31 11:51 | PN ---
DATE: 05/31/2017 REASON FOR CONSULTATION AND FOLLOWUP: Cardiomyopathy, status post AICD, and history of nonischemic cardiomyopathy admitted with flu-like syndrome on Primacor. SUBJECTIVE: The patient denies any chest pain, shortness of breath, or any palpitation. Feels better, wanted to go home. OBJECTIVE: GENERAL: Not in apparent distress, lying flat on the bed on Primacor drip. VITAL SIGNS: As follows: Temperature afebrile, heart rate 60, and blood pressure 114/79. HEENT: PERRLA intact. Extraocular muscles intact. NECK: Supple. No carotid bruits or thyromegaly. CHEST: Clear to auscultation. HEART: S1 and S2 regular. ABDOMEN: Soft. EXTREMITIES: Clubbing and cyanosis negative. LABORATORY DATA: WBC 5.7, hemoglobin , hematocrit 38.9, and platelet count 235. Chemistry shows sodium 140, potassium 5.1, chloride 107, carbon dioxide 25, anion gap of 13, BUN 23, and creatinine 0.9. TSH is 0.04, triglyceride 90, cholesterol 232, LDL 163, and HDL 42. IMPRESSION: This is a 51-year-old female with past medical history significant for nonischemic cardiomyopathy, status post automated implantable cardioverter defibrillator on heart transplant list [facility], history of systemic lupus erythematous, history of a stroke, history of atrial septal defect on anticoagulation, history of automated implantable cardioverter defibrillator, history of infected automated implantable cardioverter defibrillator, status post removal of automated implantable cardioverter defibrillator, status post on , now, the patient had a pacemaker on the left clavicle and automated implantable cardioverter defibrillator left axillary line being followed by Dr. Kahn admitted with flu-like symptoms. RECOMMENDATIONS: Resume back Primacor. We will get echo to assess LV function. Her last echo showed ejection fraction 10% to 15%. Continue anticoagulation, yesterday anticoagulation was held because her INR was 3.99, today INR 3.81, so we will still continue to hold Coumadin until the INR gets to 2.5 or below. In between continue potassium supplement. Yesterday potassium was 3.3 supplement, today is 5. Continue diuretics. Hold potassium today because potassium is 5. Hold anticoagulation. We will get echo to assess LV function. Continue Primacor. The patient is on prednisone and ibuprofen. Monitor closely potassium level, lab in the morning. The patient has hyperlipidemia. We will start atorvastatin 40 once a day. Repeat the lab in the morning. CVA status is stable. We will repeat the PT/INR tomorrow to assess the requirement of Coumadin dose. We will follow with you. Thank you Dr. Tariq for providing us the opportunity in taking care of the patient, Stephanie Russo Artur. Roberto Jones MD
--- NOTE | 2017-05-31 12:29 | CARD ---
APPROVED REPORT EXAM: Two-dimensional and M-mode echocardiogram with Doppler and color Doppler. INDICATION Dyspnea Cardiomyopathy LV Function:SystolicDiastolic 2D DIMENSIONS Left Atrium (2D)4.3 (1.6-4.0cm)IVSd0.9 (0.7-1.1cm) LVDd7.1 (3.9-5.9cm)PWd1.1 (0.7-1.1cm) LVDs6.7 (2.5-4.0cm)FS (%) 5.6 % LVEF (%)12.4 (>50%) M-Mode DIMENSIONS Aortic Root2.80 (2.2-3.7cm)Aortic Cusp Exc.1.90 (1.5-2.0cm) Aortic Valve AoV Peak Pfoidukr501.0cm/Rasheed Peak GR.5mmHg Mitral Valve MV E Mlrmojcg44.2cm/sMV A Hlbccckx58.0cm/sE/A ratio0.8 TDI E/Lateral E'0.0E/Medial E'0.0 Tricuspid Valve TR Peak [id number] [id number] Peak Gr.19mmHg [id number] LEFT VENTRICLE The Left Ventricle is severely dilated. There is normal left ventricular wall thickness. The systolic function is severely impaired.EF-15-20% There is severe global hypokinesis of the left ventricle. Transmitral Doppler flow pattern is Grade III-reversible restrictive diastolic dysfunction. No left ventricle thrombus noted on this study. There is no ventricular septal defect visualized. There is no left ventricular aneurysm. There is no mass noted in the left ventricle. RIGHT VENTRICLE The right ventricle is normal size. There is normal right ventricular wall thickness. The right ventricular systolic function is normal. There is a pacemaker lead in the right ventricle. ATRIA The left atrium is mildly dilated. The right atrium size is normal. There is a catheter/pacemaker lead seen in the right atrium. The interatrial septum is intact with no evidence for an atrial septal defect. AORTIC VALVE The aortic valve is normal in structure. No aortic regurgitation is present. There is no aortic valvular stenosis. There is no aortic valvular vegetation. MITRAL VALVE The mitral valve is thickened but opens well. Mitral regurgitation is mild . There is no mitral valve stenosis. There is no evidence of mitral valve prolapse. TRICUSPID VALVE The tricuspid valve is normal in structure. There is mild tricuspid regurgitation.RVSP-29 mmof Hg. There is no tricuspid valve stenosis. There is no tricuspid valve prolapse or vegetation. PULMONIC VALVE The pulmonary valve is normal in structure. There is mild pulmonic valvular regurgitation. There is no pulmonic valvular stenosis. GREAT VESSELS The aortic root is normal in size. The ascending aorta is normal in size. The pulmonary artery is normal. The IVC is normal in size and collapses >50% with inspiration. PERICARDIAL EFFUSION There is no pleural effusion. There is no pericardial effusion. <Conclusion> The Left Ventricle is severely dilated. There is normal left ventricular wall thickness. The systolic function is severely impaired.EF-15-20% Mitral regurgitation is mild . There is mild tricuspid regurgitation.RVSP-29 mmof Hg. There is mild pulmonic valvular regurgitation. The IVC is normal in size and collapses >50% with inspiration. There is no pericardial effusion. AICD/ PPM Lead in RA/RV.
--- NOTE | 2017-05-31 17:33 | CARD ---
APPROVED REPORT EKG Measurement Heart [id number] <Conclusion> Accelerated Junctional rhythm Left axis deviation Inferior infarct, age undetermined Prolonged QT Abnormal ECG
[2017-05-31] MEDS: Fluticasone Nasal 50 mcg/Spray NS SCH (18:15)
--- NOTE | 2017-05-31 21:21 | CON ---
DATE: 05/31/2017 REASON FOR CONSULTATION: Known history of antiphospholipid antibody as well as multiple DVTs, on ongoing Coumadin. HISTORY OF PRESENT ILLNESS: The patient is a 51-year-old female with past medical history significant for nonischemic cardiomyopathy status post AICD, on heart transplant list, who was admitted with flu-like symptoms. She is currently being treated with antibiotics. She also has a known history of lupus, stroke, and also , on ongoing Coumadin, which has been monitored by me as an outpatient and therapeutic on 2 mg of Coumadin. She is now supratherapeutic on admission and consult is called for the above management. She denies any other complaints at this point except for her cough and feeling fevers and having body aches. PAST MEDICAL HISTORY: As above, known history of lupus anticardiolipin antibody syndrome, anxiety disorder, GERD, hypertension, hyperlipidemia, nonischemic cardiomyopathy, congestive heart failure, CVA with right-sided weakness over 15 years ago. PAST SURGICAL HISTORY: Positive for as well as defibrillator. SOCIAL HISTORY: History of smoking in the past. Denies any alcohol abuse or drug abuse. MEDICATIONS AT HOME: Include milrinone, Coumadin, potassium chloride, lisinopril and vitamin D3. ALLERGIES: NO KNOWN DRUG ALLERGIES. REVIEW OF SYSTEMS: As per the HPI. PHYSICAL EXAMINATION: GENERAL: The patient is a middle-aged female, lying in bed, in no acute distress. VITAL SIGNS: Reveal a temperature 98.1, pulse of 67, respiratory rate of 22, and a blood pressure 114/79. HEAD AND NECK: Normocephalic and atraumatic. Eyes: Pupils are equal, round, and reactive to light and accommodation. Extraocular muscles intact. There is no pallor. No icterus is noted. Neck is supple with no adenopathy. No JVD. No thyromegaly. LUNGS: Decreased breath sounds bilaterally at the bases. CARDIOVASCULAR: S1 and S2 heard. ABDOMEN: Positive bowel sounds. Soft, nontender, nondistended. No organomegaly is palpated. EXTREMITIES: There is mild pitting edema. LABORATORY DATA: Her labs reveals a white count of 5.7, hemoglobin of 12.1, hematocrit of 38.7. MCV of 84.7 and a platelet count of 235. Coag studies reveal INR of 3.8. Chemistries are within normal limits. All other blood work is within normal limits. ASSESSMENT AND PLAN: A middle-aged female with known multiple medical problems and on long-term anticoagulation from multiple issues. INR today is supratherapeutic, hold Coumadin at this point. If the patient is discharged, she is advised to hold Coumadin again for the next day and then resume at 2 mg, then follow up in 1 week for her INR check. She is well aware of the protocol and will be followed up in the office. Thank you for the consult. We will follow. Elisabeth Bonilla MD
--- NOTE | 2017-05-31 21:45 | CP.PCM.PN ---
<Sandee Caceres - Last Filed: 05/31/17 23:30> Subjective - Date & Time of Evaluation Date of Evaluation: 05/31/17 Time of Evaluation: 18:00 - Subjective Subjective: 51yr female w/ history of non-ischemic cardiomyopathy s/p AICD , recent [place] [address] Kahn, s/p endorcarditis, on heart transplant list [facility], patent foramen ovale, ASD, on LifeVest milirone drip @ home & coumadin, SLE, stroke, R sided weakness, Pulmonary embolism, Anxiety, depression & R breast cellulitis. Seen eating her dinner. She reports tenderness of maxillary sinuses. Reports no relief of cough while taking phenergan. Reports vaginal discomfort from a secondary yeast infection. Denies any headaches, N/V, fevers, constipation, diarrhea, urinary changes or distress. Objective - Vital Signs/Intake and Output Vital Signs (last 24 hours): Temp Pulse Resp BP Pulse Ox 98.5 F 70 21 111/81 97 05/31/17 16:00 05/31/17 18:00 05/31/17 16:00 05/31/17 16:02 05/31/17 16:00 Intake and Output: 05/31/17 06/01/17 18:59 06:59 Intake Total 1125 Balance 1125 - Medications Medications: Current Medications Acetaminophen (Tylenol 325mg Tab) 325 mg PO TID PRN PRN Reason: Pain, Mild (1-3) Alprazolam (Xanax) 0.25 mg PO TID PRN; Protocol PRN Reason: Anxiety Stop: 06/06/17 18:01 Last Admin: 05/31/17 13:13 Dose: 0.25 mg Atorvastatin Calcium (Lipitor) 40 mg PO DIN [facility] Last Admin: 05/31/17 17:09 Dose: 40 mg Benzonatate (Tessalon Perles) 100 mg PO TID [facility] Last Admin: 05/31/17 18:15 Dose: 100 mg Cholecalciferol (Vitamin D) 1,000 intlu PO DAILY [facility] Last Admin: 05/31/17 10:07 Dose: 1,000 intlu Doxycycline Hyclate (Doryx) 100 mg PO Q12 [facility] PRN Reason: Protocol Last Admin: 05/31/17 21:19 Dose: 100 mg Fluconazole (Diflucan) 150 mg PO DAILY [facility] PRN Reason: Protocol Stop: 06/01/17 23:59 Fluticasone Propionate (Flonase) 1 actuation NS DAILY [facility] Last Admin: 05/31/17 18:15 Dose: 1 actuation Furosemide (Lasix) 40 mg IV DAILY [facility] Last Admin: 05/31/17 10:09 Dose: 40 mg Milrinone Lactate/Dextrose (Primacor 20mg/100ml D5w) 100 mls @ 9.032 mls/hr IV .Q11H5M PRN; Protocol; 0.375 MCG/KG/MIN PRN Reason: TITRATE PER MD ORDER Last Admin: 05/31/17 16:02 Dose: 0.375 mcg/kg/min, 9.032 mls/hr Meropenem (Merrem Iv 1 Gm Premix) 50 mls @ 100 mls/hr IVPB Q8 [facility] PRN Reason: Protocol Stop: 06/08/17 14:01 Last Admin: 05/31/17 13:13 Dose: 100 mls/hr Ibuprofen (Motrin Tab) 200 mg PO TID [facility] Last Admin: 05/31/17 17:09 Dose: 200 mg Lisinopril (Zestril) 2.5 mg PO DAILY [facility] Last Admin: 05/31/17 10:11 Dose: Not Given Methylprednisolone (Solu-Medrol) 30 mg IVP Q12 [facility] Last Admin: 05/31/17 21:19 Dose: 30 mg Promethazine HCl (Phenergan Syrup) 12.5 mg PO TID PRN PRN Reason: Cough Last Admin: 05/31/17 05:12 Dose: 12.5 mg Sodium Chloride ([place] Nasal Molino) 1 ml NS Q4 [facility] - Labs Labs: 05/31/17 06:45 05/31/17 06:45 PT 43.1 SECONDS (9.4-12.5) H 05/31/17 06:45 INR 3.81 (0.93-1.08) H* 05/31/17 06:45 APTT 49.7 Seconds (25.1-36.5) H 05/30/17 07:15 - Constitutional Appears: No Acute Distress - Head Exam Head Exam: ATRAUMATIC, NORMAL INSPECTION, NORMOCEPHALIC Additional comments: bilateral maxillary sinuses tender to palpation - Eye Exam Eye Exam: EOMI, Normal appearance, PERRL - ENT Exam ENT Exam: Mucous Membranes Moist, Normal Exam - Neck Exam Neck Exam: Full ROM, Normal Inspection. absent: Lymphadenopathy - Respiratory Exam Respiratory Exam: Decreased Breath Sounds, NORMAL BREATHING PATTERN - Cardiovascular Exam Cardiovascular Exam: Irregular Rhythm, +S1, +S2, Murmur - GI/Abdominal Exam GI & Abdominal Exam: Soft, Normal Bowel Sounds. absent: Tenderness - Exam Additional comments: Candiasis, vulvovaginal - Extremities Exam Extremities Exam: Full ROM, Normal Capillary Refill, Normal Inspection. absent : Joint Swelling, Pedal Edema - Neurological Exam Neurological Exam: Alert, Awake, Normal Gait, Oriented x3 - Psychiatric Exam Psychiatric exam: Normal Affect, Normal Mood - Skin Skin Exam: Dry, Intact, Normal Color, Warm Assessment and Plan (1) Shortness of breath Status: Acute (2) Cough Status: Acute (3) Antiphospholipid antibody syndrome Status: Acute (4) Hypercoagulopathy Status: Acute (5) Hyperkalemia Status: Acute (6) Hyperlipidemia Status: Acute (7) Sinusitis Status: Acute (8) CHF exacerbation Status: Acute (9) Acute on chronic diastolic CHF (congestive heart failure) Status: Chronic - Assessment and Plan (Free Text) Plan: Continue IV meropenem/vancomycin, PO doxycycline, IV solumedryl. Prescribed PO diflucan for vaginal candiasis, Tessalon perles for cough relief, & Flonase for Sinusitis. Consults: Pulmonary - = nasal saline, inhaled bronchodilator, doxycycline, solumedryl, test influenza A/B, keep INR 2.5 I.D. - Dr. Schuler = will D/C abx in 24 hr once cultures (blood/urine) are Negative Cardio - Dr. 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 Reviewed: CXR = (+) Pacemaker, WNL ECHO = LVEF 12.4%, systolic function EF 15-20%, AICD/PPM in RA/RV ECG = ABNORMAL: Accelerated junctional rhythm, L axis deviation, inferior infarct, prolonged QT <Estelle Tariq - Last Filed: 06/01/17 17:21> Objective - Vital Signs/Intake and Output Vital Signs (last 24 hours): Temp Pulse Resp BP Pulse Ox 98.4 F 71 20 116/65 93 L 06/01/17 16:30 06/01/17 17:12 06/01/17 16:30 06/01/17 17:12 06/01/17 16:30 Intake and Output: 06/01/17 06/01/17 06:59 18:59 Intake Total 1210 100 Balance 1210 100 - Medications Medications: Current Medications Acetaminophen (Tylenol 325mg Tab) 325 mg PO TID PRN PRN Reason: Pain, Mild (1-3) Alprazolam (Xanax) 0.25 mg PO TID PRN; Protocol PRN Reason: Anxiety Stop: 06/06/17 18:01 Last Admin: 06/01/17 14:40 Dose: 0.25 mg Atorvastatin Calcium (Lipitor) 40 mg PO DIN [facility] Last Admin: 06/01/17 17:08 Dose: 40 mg Benzonatate (Tessalon Perles) 100 mg PO TID [facility] Last Admin: 06/01/17 17:09 Dose: 100 mg Cholecalciferol (Vitamin D) 1,000 intlu PO DAILY [facility] Last Admin: 06/01/17 09:14 Dose: 1,000 intlu Doxycycline Hyclate (Doryx) 100 mg PO Q12 [facility] PRN Reason: Protocol Last Admin: 06/01/17 09:14 Dose: 100 mg Fluconazole (Diflucan) 150 mg PO DAILY [facility] PRN Reason: Protocol Stop: 06/01/17 23:59 Last Admin: 06/01/17 09:13 Dose: 150 mg Fluticasone Propionate (Flonase) 1 actuation NS DAILY [facility] Last Admin: 06/01/17 09:15 Dose: 1 actuation Furosemide (Lasix) 40 mg IV DAILY [facility] Last Admin: 06/01/17 09:15 Dose: 40 mg Milrinone Lactate/Dextrose (Primacor 20mg/100ml D5w) 100 mls @ 9.032 mls/hr IV .Q11H5M PRN; Protocol; 0.375 MCG/KG/MIN PRN Reason: TITRATE PER MD ORDER Last Admin: 06/01/17 17:12 Dose: 0.375 mcg/kg/min, 9.032 mls/hr Meropenem (Merrem Iv 1 Gm Premix) 50 mls @ 100 mls/hr IVPB Q8 [facility] PRN Reason: Protocol Stop: 06/08/17 14:01 Last Admin: 06/01/17 15:38 Dose: 100 mls/hr Micafungin Sodium 100 mg/ (Sodium Chloride) 100 mls @ 100 mls/hr IVPB DAILY [facility] PRN Reason: Protocol Stop: 06/02/17 12:49 Last Admin: 06/01/17 14:41 Dose: 100 mls/hr Lisinopril (Zestril) 2.5 mg PO DAILY [facility] Last Admin: 06/01/17 09:14 Dose: 2.5 mg Promethazine HCl (Phenergan Syrup) 12.5 mg PO TID PRN PRN Reason: Cough Last Admin: 06/01/17 00:36 Dose: 12.5 mg Sodium Chloride ([place] Nasal Molino) 1 ml NS Q4 [facility] Last Admin: 06/01/17 14:41 Dose: 1 dose - Labs Labs: 06/01/17 07:30 06/01/17 07:30 PT 39.6 SECONDS (9.4-12.5) H 06/01/17 07:30 INR 3.51 (0.93-1.08) H* 06/01/17 07:30 APTT 49.7 Seconds (25.1-36.5) H 05/30/17 07:15 Assessment and Plan - Assessment and Plan (Free Text) Plan: pt is seen and examined at bed side , agreed all above . chart , meds and labs noted . r/o viral syndrome . body aches getting better , cont. anb . will f/u
--- NOTE | 2017-05-31 22:15 | CON ---
DATE: 05/31/2017 The patient is seen in room 364, bed 2. CHIEF COMPLAINT: Flu-like symptoms times several days. HISTORY OF PRESENT ILLNESS: This is a 51-year-old female with a history of right breast cellulitis, right mastitis, sepsis with Serratia in the past with pulmonary embolism, asthma, cerebrovascular accident, cardiomyopathy, congestive heart failure, lupus, STDs, anxiety, depression and panic disease, who was admitted on this admission with flu-like symptoms and weakness and shortness of breath. Infectious Disease consultation requested. The patient states that her shortness of breath has gotten worse and she has been short of breath, there is flu like symptoms, low-grade fevers. No chills. No abdominal pain, diarrhea or constipation. No bright red blood per rectum. PAST MEDICAL HISTORY: Significant for anxiety, depression, panic disorder, lupus, sexually transmitted diseases, cerebrovascular accident, cardiomyopathy, congestive heart failure, asthma, pulmonary embolism, right breast cellulitis and mastitis, and sepsis with Serratia. PAST SURGICAL HISTORY: Significant for AICD placement and . ALLERGIES: THE PATIENT HAS NO KNOWN ALLERGIES TO ANY ANTIBIOTICS. HOME MEDICATIONS: The patient medications at home include metoprolol, Xanax, milrinone at 20 mg per 100 mL IV at home, and Coumadin. PHYSICAL EXAMINATION: GENERAL/VITAL SIGNS: She is in bed, appearing comfortable with a temperature of 98, heart rate of 67, blood pressure is 114/70, and respiratory rate of 22. HEENT: Unremarkable. NECK: Supple. LUNGS: Have decreased breath sounds. HEART: Normal S1 and S2. ABDOMEN: Soft, nontender. LABORATORY DATA: Reveals white count of 5.7, hemoglobin of 12, and platelets 235. Chemistries reveal a BUN of 23, creatinine of 0.9, sugars 131, and procalcitonin is 0.15. LFTs are normal. Urinalysis is normal. The patient's complement level is 129, C3 and which is within normal range, and C4 is 35 which is also within the normal range. The patient's serology influenza is negative. Microbiology reveals the sputum culture is pending. Blood cultures are also pending. Urine culture is pending. MEDICATIONS: The patient's medications include the patient to be on vancomycin and meropenem. The patient was given a dose of vancomycin, currently on meropenem and doxycycline. The patient also had a chest x-ray which was negative, had an HIV test which was negative in 2016, and Dr. Mcarthur's consultation is reviewed. ASSESSMENT AND PLAN: This is a 51-year-old female with history of right breast cellulitis and mastitis, history of Serratia, sepsis, history of pulmonary embolism, asthma, cerebrovascular accident, cardiomyopathy, congestive heart failure with ejection fraction of 11%, the patient with lupus and sexually transmitted diseases, anxiety, depression and panic disorder, presenting with acute systolic congestive heart failure on chronic congestive heart failure with cardiomyopathy, milrinone dependent, and negative chest x-ray. We will check on the blood cultures, negative procalcitonin and if the cultures are negative and negative procalcitonin, we will check on sputum cultures and blood cultures and urine culture, will mostly discontinue antibiotics in the next 24 hours once the culture results are negative for this patient with acute systolic congestive heart failure on top of chronic congestive heart failure with ejection fraction of 11%. Cristóbal Snowden MD
--- NOTE | 2017-05-31 22:45 | PN ---
PULMONARY PROGRESS NOTE DATE: 05/31/2017 REFERRING PHYSICIAN: Estelle Tariq MD SUBJECTIVE: She is sitting at the side of the bed. Night was unremarkable. Feels better. Still have some facial discomfort, rhinitis, and postnasal drip. No nausea. No vomiting. No diarrhea. No leg pain or leg swelling. OBJECTIVE: GENERAL: In no acute distress. VITAL SIGNS: Temperature is 98, heart rate is 70, respiratory rate is 20, blood pressure is 111/81, and pulse ox is 97% on room air. HEENT: Moist mucous membranes. Crowded airway. Mallampati score is IV. NECK: Supple. No JVD. Still has a maxillary area tenderness. LUNGS: Has a fair airflow with rhonchi. HEART: S1 and S2. ABDOMEN: Soft and nontender. No organomegaly. EXTREMITIES: There is no edema. NEUROLOGIC: Awake and alert and follows simple commands. MEDICATIONS: She is on Diflucan 150 mg daily, doxycycline 100 mg twice a day, Flonase one spray each nostril daily, Lasix 40 mg IV daily, atorvastatin 40 mg daily, meropenem 50 mg q.8 hours, Motrin 200 mg three times a day, Phenergan 5 mg 3 times a day p.r.n., Primacor IV drip, Solu-Medrol 30 mg q.12 hours, Tessalon Perles 100 mg three times a day, Tylenol p.r.n., vitamin D 1000 international units daily, Xanax 0.25 mg three times a day p.r.n., and Zestril 2.5 mg daily. LABORATORY DATA: Shows hemoglobin 12.1, hematocrit 38.9, WBC 5.7, and platelet is 235. INR 3.81. Sodium 140, potassium 5.0, chloride 107, bicarbonate 25, BUN 23, creatinine 0.9, glucose is 148, and calcium is 8.6. AST 24, ALT 26, alkaline phosphatase is 66, albumin is 3.7, and TSH is 0.04. Microbiology, sputum has Gram-negative rods. Blood cultures are being negative. Echocardiogram done today while on Primacor right ventricular systolic pressure is 29. LV ejection fraction while on Primacor is 15% to 20%. IMPRESSION AND PLAN: Sinusitis with postnasal drip, bronchitis, chronic lung disease, severe cardiomyopathy, Primacor dependent, pulmonary hypertension, and history of lupus. The patient is being followed by Cardiology. Continue IV and inhaled bronchodilator. We will add nasal saline two spray each nostril q.4 hours, gastric prophylaxis, and anticoagulation. Thank you and we will follow with you. Roberto Mcarthur MD
[2017-06-01] MEDS: Promethazine 6.25 MG/5 ML CUP PO PRN ×2 (00:36→22:14)
[2017-06-01] MEDS: Meropenem IV 1 gm in NS 50 ML IVPB SCH ×3 (05:10→22:11)
[2017-06-01] MEDS: Milrinone 20mg/100ml D5W 100 ML IV PRN ×2 (05:10→17:12)
[2017-06-01 07:53] LABS: BASO # 0.01 K/mm3 (0.0-2.0); BASO % 0.1 % (0.0-3.0); GRAN # 15.68 (1.4-6.5); GRAN % 91.1 % (50.0-68.0); HEMOGLOBIN 12.5 g/dL (12.0-16.0); LYMPH # 0.9 (1.2-3.4); LYMPH % 5.4 % (22.0-35.0); MEAN CELL VOLUME 84.8 fl (80.0-105.0); MEAN CORPUSCULAR HEMOGLOBIN 26.7 pg (25.0-35.0); MEAN CORPUSCULAR HGB CONC 31.5 g/dl (31.0-37.0); MEAN PLATELET VOLUME 10.1 fl (7.0-11.0); MONO # 0.6 (0.1-0.6); MONO % 3.4 % (1.0-6.0); PLATELET COUNT 227 10^3/uL (120.0-450.0); RBC 4.68 10^6/uL (3.5-6.1); RED CELL DISTRIBUTION WIDTH 15.8 % (11.5-14.5); WHITE BLOOD COUNT 17.2 10^3/ul (4.5-11.0)
[2017-06-01 08:11] LABS: PROTHROMBIN TIME 39.6 SECONDS (9.4-12.5)
[2017-06-01 08:12] LABS: INR 3.51 (0.93-1.08)
[2017-06-01 08:23] LABS: ALB/GLOB RATIO 0.9 (1.1-1.8); ALBUMIN 3.4 g/dL (3.0-4.8); ALT/SGPT 31 U/L (7-56); AST/SGOT 20 U/L (14-36); BLOOD UREA NITROGEN 21 mg/dL (7-21); CALCIUM 8.7 mg/dL (8.4-10.5); GFR AFRICAN-AMERICAN > 60; GFR NON-AFRICAN AMERICAN > 60
[2017-06-01 08:40] LABS: LYMPHOCYTE 7 % (22.0-35.0); MONOCYTE 2 % (1.0-6.0); NEUTROPHIL 91 % (50.0-70.0); PLATELET ESTIMATE NORMAL (NORMAL)
[2017-06-01] MEDS: Cholecalciferol 1,000 INTLU TAB PO SCH (09:14)
[2017-06-01] MEDS: Fluticasone Nasal 50 mcg/Spray NS SCH (09:15)
[2017-06-01] MEDS: MethylPREDNISolone 40 mg Vial IVP SCH (09:15)
--- NOTE | 2017-06-01 12:03 | PN ---
DATE: 06/01/2017 REASON FOR CONSULTATION AND FOLLOWUP: Cardiomyopathy, status post AICD, and history of nonischemic cardiomyopathy, admitted with flu-like symptoms, on Primacor at home. SUBJECTIVE: The patient denies any chest pain, shortness of breath, or any palpitation. Feels better. OBJECTIVE: GENERAL: Not in apparent distress, lying flat in the bed on Primacor drip. VITAL SIGNS: Temperature afebrile, heart rate 70, and blood pressure 110/63. HEENT: PERRLA. Intact. NECK: Supple. No carotid bruits or thyromegaly. CHEST: Clear to auscultation. HEART: S1 and S2, regular. ABDOMEN: Soft. EXTREMITIES: Clubbing and cyanosis negative. LABORATORY DATA: As follows: WBC 17, hemoglobin 12.4, hematocrit 39.7, and platelet count 227. Chemistry shows sodium 130, potassium 4.0, chloride 105, carbon dioxide 24, anion gap of 14, BUN 21, and creatinine 0.9, total protein 7.4, albumin 3.4, and albumin-globulin ratio of 0.9. IMPRESSION: A 51-year-old female with a past medical history significant for nonischemic cardiomyopathy, status post automatic implantable cardioverter-defibrillator on heart transplant list at [facility], history of systemic lupus erythematosus, history of stroke, history of atrial septal defect on anticoagulation, history of automatic implantable cardioverter-defibrillator infected, status post pacemaker placed on LifeVest, now separate, defibrillator placed in left axillary line, admitted with flu-like symptoms. The patient underwent echocardiography done yesterday while the patient was on Primacor, ejection fraction of 15% to 20%, severely impaired left ventricular function, mild mitral regurgitation, mild tricuspid regurgitation, right ventricular systolic pressure of 29 mmHg, mild pulmonary regurgitation noted. Automatic implantable cardioverter-defibrillator lead noted, right atrium, right ventricle, severe dilated left ventricle. RECOMMENDATIONS: Continue to hold Coumadin because INR is supratherapeutic at 3.51. Continue Lasix. Continue atorvastatin. Continue Primacor, patient is taking at home. CVA status is stable. No further cardiac workup is planned at this time. When the patient is stable from pulmonary point of view, the patient can be discharged home. Upon discharge, the patient will be followed by Dr. Rubalcava. Discussed with the patient. We will repeat INR tomorrow. Again the patient's ejection fraction is 15% to 20% while on Primacor. Roberto Jones MD
[2017-06-01] MEDS ORDERED: Micafungin 100 MG in Sodium Chloride 0.9% 100 ML IVPB SCH (12:48)
--- NOTE | 2017-06-01 18:32 | PN ---
DATE: 06/01/2017 PULMONARY PROGRESS NOTE REFERRING PHYSICIAN: Estelle Tariq MD SUBJECTIVE: She is ambulating in the room and was told she has a fungemia and PICC line has to come out, already received peripheral line. From a pulmonary point she is okay. Decreased cough. No shortness of breath. No nausea. No vomiting. No diarrhea. No leg pain or leg swelling. OBJECTIVE: GENERAL: In no acute distress. VITAL SIGNS: Temperature is 98, heart rate is 72, respiratory rate is 18, blood pressure is 110/60, and pulse oximetry is 95% on room air. HEENT: Moist mucous membranes. No ulcer or thrush. NECK: Supple. No JVD. LUNGS: Has a fair airflow with rhonchi. HEART: S1 and S2. ABDOMEN: Soft and nontender. No organomegaly. EXTREMITIES: No edema. NEUROLOGIC: Awake, alert, and follows simple commands. LABORATORY DATA: Shows hemoglobin 12.5, hematocrit 39.7, WBC 17.2, and platelet count is 227. Today's INR is 3.51. Sodium is 138, potassium 4.5, chloride 105, bicarbonate 24, BUN 21, creatinine 0.9, glucose is 129, calcium is 8.7, phosphorus 3.4, magnesium 2.0, AST 20, ALT 31, alkaline phosphatase 73, albumin is 3.4, and TSH 0.04. Microbiology, one of the blood culture has a yeast. Sputum culture has Klebsiella pneumoniae and Citrobacter. MEDICATIONS: She is on Diflucan 150 mg daily, doxycycline 100 mg twice a day, Flonase 1 spray each nostril daily, Lasix 40 mg daily, Lipitor 40 mg daily, meropenem 1 g q.8 hours, also on micafungin 100 mg daily, nasal saline 2 sprays each nostrils q.4 hours, Phenergan 12.5 mg 3 times a day p.r.n., Primacor IV, Solu-Medrol 30 mg q.12 hours, Tessalon Perles 100 mg 3 times a day, Tylenol p.r.n., vitamin D daily, Xanax 0.25 mg 3 times a day p.r.n. and Zestril 2.5 mg daily. IMPRESSION AND PLAN: Sinusitis with postnasal drip, bronchitis, chronic lung disease, severe cardiomyopathy, has a PICC line; Primacor dependent, hypertension, and history of lupus. Case discussed with the nursing staff. Antifungal medication started. PICC line being ordered to take off. We will discontinue Solu-Medrol. Continue inhaled bronchodilator and antibiotics as per Infectious Disease. Cardiology followup to show there is no endocarditis or catheter related cardiovascular complications. Thank you and we will follow with you. Roberto Mcarthur MD
--- NOTE | 2017-06-01 22:56 | PN ---
DATE: SUBJECTIVE: The patient is seen and examined at the bedside, complaining about lower abdominal pain and the patient has fungemia and PICC line has to be come out, already receiving peripheral line. No nausea, vomiting, or diarrhea. No hematuria. No hematochezia. No swelling of leg. No chest pain or palpitation. Cough is better. Shortness of breath is better. Body aches and fatigue are better. PHYSICAL EXAMINATION: VITAL SIGNS: Temperature 98.6, heart rate 72, respiratory rate 18, blood pressure 110/60, and pulse oximetry is 95% on room air. HEENT: Head, normocephalic and atraumatic. Eyes; PERRLA. Extraocular muscles are intact. Conjunctivae clear. Nose patent. Mucous membranes moist. NECK: Supple. No carotid bruit. No JVD or thyromegaly. CHEST: Bilaterally symmetrical. HEART: S1 and S2 positive. LUNGS: Clear to auscultation. ABDOMEN: Soft. Bowel sounds present. No organomegaly. EXTREMITIES: No edema. No cyanosis. NEUROLOGICAL: The patient is awake and alert. Moving all four extremities. No focal deficits. LABORATORY DATA: Hemoglobin 12.5, hematocrit 39.7, white blood cell count 18.2, platelets 227. INR 3.51. Sodium 138, potassium 4.5, BUN 21, creatinine 0.9, glucose 129, AST 20, ALT 31, TSH 0.04. MEDICATIONS: Diflucan, doxycycline, Flonase, Lasix, Lipitor, meropenem, micafungin, nasal saline, Phenergan, Pulmicort. Solu-Medrol, Tessalon Perles, Tylenol, vitamin D, Xanax, and Zestril. ASSESSMENT AND PLAN: Ms. Stephanie Siddiqui has sinusitis with postnasal drip, bronchitis, chronic lung disease, severe cardiomyopathy, has a PICC line, Primacor dependency, hypertension, history of lupus, blood culture positive for fungus, antifungal medications started. PICC line being ordered to be taken off ,discontinue the Solu-Medrol. Continue inhaled bronchodilators. The patient needs to be followed up by the proof carrier to rule out endocarditis and catheter related cardiovascular complications. Discussion done with the patient and patient's family , GI and DVT prophylaxis. Repeat lab. We will follow. Estelle Tariq MD CHANELL
--- NOTE | 2017-06-01 23:46 | PN ---
DATE: 06/01/2017 SUBJECTIVE: The patient was seen early this morning in room 364, bed 2. She has no fevers and no chills. She feels comfortable. PHYSICAL EXAMINATION: VITAL SIGNS: Temperature is 98, blood pressure is 116/60, and respiratory rate of 18. HEENT: Unremarkable. NECK: Supple. LUNGS: Have decreased breath sounds. HEART: Normal S1 and S2. ABDOMEN: Soft and nontender. LABORATORY DATA: Reveals a white count is up to 17,200, hemoglobin of 12, and platelets of 227. The patient's urinalysis is noted. Immunology reveals the complement levels are reviewed. The patient's influenza is negative. Microbiology reveals a blood cultures are positive for yeast in the one bottle. The sputum culture is positive for Klebsiella pneumoniae and Citrobacter. Klebsiella is sensitive to cefazolin, Cipro, cefepime, meropenem and ESBL is negative, sensitive to Bactrim. Citrobacter is sensitive to quinolone. The urine culture contamination. ASSESSMENT AND PLAN: A 51-year-old female who was seen earlier this morning with history of right breast cellulitis, right mastitis, history of Serratia and sepsis in the past, history of pulmonary emboli, asthma, cerebrovascular accident, cardiomyopathy, congestive heart failure, lupus, sexually transmitted diseases, anxiety, depression and panic disease, who was admitted with flu-like symptoms, shortness of breath, and the patient was admitted with acute systolic congestive heart failure with chronic congestive heart failure with cardiomyopathy, milrinone dependent at home, and now with positive blood cultures for yeast with fungemia, now with with sepsis with fungemia, yeast in the blood and Serratia in the past and the patient has Klebsiella pneumoniae in the sputum, Citrobacter in the sputum, and fungemia with sepsis, and Anaya catheter has been removed. We will discontinue the fluconazole. The patient was started on Mycamine, was given a dose as stat this morning and meropenem and with procalcitonin of 0.15, we will check on the repeat cultures concerned about endocarditis because of the peripherally inserted central catheter line, which was removed and Solu-Medrol should be discontinued at this time as possible. The patient had an echocardiogram yesterday on 05/31/2017, which was reported to be mitral valve thickening and no evidence of prolapse. No aortic valve vegetations and the patient does have a pacemaker concerned about pacemaker infection with fungemia. The patient should also have an Ophthalmology evaluation and to rule out fungal ophthalmic involvement. Dr. Jones's note is reviewed. Dr. Mcarthur's note is reviewed. We will discuss with Dr. Jones. We will check on peripherally inserted central catheter line catheter tip. We will check on the sensitivity of identification and sensitivity of the yeast and check under repeat blood cultures. The patient did have a chest x-ray, which shows no active pulmonary disease with negative procalcitonin. We will discontinue the doxycycline. Cristóbal Snowden MD
[2017-06-02] MEDS: Milrinone 20mg/100ml D5W 100 ML IV PRN ×2 (05:17→22:32)
[2017-06-02] MEDS: Meropenem IV 1 gm in NS 50 ML IVPB SCH ×2 (05:22→14:08)
[2017-06-02 06:49] LABS: GRAN # 13.26 (1.4-6.5); LYMPH % 6.4 % (22.0-35.0); MEAN CELL VOLUME 84.9 fl (80.0-105.0); MEAN CORPUSCULAR HEMOGLOBIN 26.3 pg (25.0-35.0); MEAN PLATELET VOLUME 11.4 fl (7.0-11.0); MONO # 0.7 (0.1-0.6); MONO % 4.6 % (1.0-6.0); RBC 4.56 10^6/uL (3.5-6.1); RED CELL DISTRIBUTION WIDTH 15.8 % (11.5-14.5); WHITE BLOOD COUNT 14.9 10^3/ul (4.5-11.0)
[2017-06-02 07:18] LABS: INR 2.8 (0.93-1.08); PROTHROMBIN TIME 31.5 SECONDS (9.4-12.5)
[2017-06-02 07:20] LABS: ALB/GLOB RATIO 0.9 (1.1-1.8); ALBUMIN 3.3 g/dL (3.0-4.8); ALT/SGPT 33 U/L (7-56); AST/SGOT 27 U/L (14-36); BLOOD UREA NITROGEN 29 mg/dL (7-21); CALCIUM 8.5 mg/dL (8.4-10.5); GFR AFRICAN-AMERICAN > 60; GFR NON-AFRICAN AMERICAN > 60; MAGNESIUM 2.1 mg/dL (1.7-2.2)
[2017-06-02] MEDS: Cholecalciferol 1,000 INTLU TAB PO SCH (09:59)
[2017-06-02] MEDS: Fluticasone Nasal 50 mcg/Spray NS SCH (10:02)
[2017-06-02] MEDS: Micafungin 100 MG in Sodium Chloride 0.9% 100 ML IV SCH (10:03)
--- NOTE | 2017-06-02 13:18 | PN ---
DATE: REASON FOR CONSULTATION AND FOLLOWUP: Cardiomyopathy status post AICD, history of nonischemic cardiomyopathy, admitted with flu-like symptoms on Primacor at home, rule out endocarditis, fungemia (blood culture positive for fungus). SUBJECTIVE: The patient denies any chest pain, shortness of breath or any palpitation. Feels better. PICC line was discontinued yesterday. Getting peripheral IV line. OBJECTIVE: GENERAL: Not in apparent distress. Lying flat in the bed. VITAL SIGNS: As follows, temperature afebrile, heart rate 80, and blood pressure 130/80. HEENT: PERRLA. Extraocular muscles intact. NECK: Supple. No carotid bruits or thyromegaly. CHEST: Clear to auscultation. HEART: S1 and S2 regular. ABDOMEN: Soft. EXTREMITIES: Clubbing and cyanosis negative. LABORATORY DATA: WBC 14.9, hemoglobin 12, hematocrit 38.7, and platelet count 249. Chemistry shows sodium 130, potassium 4.2, chloride 102, carbon dioxide 28, anion gap of 12, BUN 29, and creatinine 0.9. Blood cultures on 05/30/2017 shows yeast species Gram stain final pending. IMPRESSION AND PLAN: Fungus in the blood, rule out fungal endocarditis. The patient had regular echo done the day before yesterday, did not show any evidence of endocarditis. The patient was on Primacor. Ejection fraction of 15-20% on Primacor, mild tricuspid regurgitation, mild mitral regurgitation, mild pulmonary insufficiency, right ventricular systolic pressure of 29. No vegetation noted. History of nonischemic cardiomyopathy, status post defibrillator endocarditis, status post removal of defibrillator, status post single-chamber VVI on the left-sided chest, later on the patient was on LifeVest. Later on the patient had defibrillator on the left axillary line. There is a separate defibrillator and pacemaker as well. Admitted with the flu-like symptoms. Blood cultures yeast. Discussed in length with Dr. Snowden (ID specialist). Doing a RANJEET at this stage would be not conclusive because fibrin thread may appear in the long-standing pacemaker lead or defibrillator lead, which cannot be interpreted without blood culture. It could be simple fibrin thread versus endocarditis, but without blood culture it is uninterpretable, so I suggest at this point: 1. Discontinue the peripherally inserted central catheter line, which was discontinued yesterday. We will wait 24 hours, repeat blood culture tomorrow and the repeat blood culture shows still positive, we will do RANJEET, otherwise, treat medically. I discussed with the patient. The patient is being followed by Dr. Rubalcava. We will also inform Dr. Rubalcava about the patient's condition. We will discuss with you. Thank you Dr. Tairq for providing us the opportunity in taking care of the patient, Stephanie Siddiqui. Roberto Jones MD
[2017-06-02] MEDS: HYDROmorphone 0.5 mg/0.5 ml ISec IVP PRN (18:00)
--- NOTE | 2017-06-02 18:34 | PN ---
DATE: 06/02/2017 SUBJECTIVE: The patient is in bed, in no acute distress, nontoxic. OBJECTIVE: VITAL SIGNS: Temperature is 97, blood pressure is 102/60, respiratory rate of 18, and heart rate of 60. HEENT: Unremarkable. NECK: Supple. LUNGS: Have decreased breath sounds. HEART: Normal S1 and S2. ABDOMEN: Soft and nontender. LABORATORY DATA: Reveals a white count of 14,900, hemoglobin of 12, and platelets of 249. BUN of 29, creatinine of 0.9, and procalcitonin of 0.15. Urinalysis is noted. Complement levels are noted. Influenza is negative. Repeat blood cultures are no growth and one blood culture did have yeast and Klebsiella and Citrobacter in the sputum with a negative chest x-ray and negative procalcitonin. ASSESSMENT AND PLAN: This is a 51-year-old female who is seen earlier this morning with a history of right breast cellulitis, history of right mastitis, history of Serratia sepsis, history of pulmonary emboli, asthma, cerebrovascular accident, cardiomyopathy, congestive heart failure, lupus, sexually transmitted diseases, anxiety, depression, and panic disorder. On this admission, the patient is admitted with flu-like symptoms, found to have sepsis with yeast in the blood, fungemia secondary to PICC line. The patient has two other sources of possibilities with two pacemakers, one in the left chest and the other in the left flank, defibrillator and the repeat blood cultures are negative and we will check on the identification of the yeast in the blood. The patient should have an ophthalmology examination ophthalmic involvement of yeast and we will discontinue the meropenem and continue micafungin pending identification and sensitivity of the yeast in the blood. Cristóbal Snowden MD
--- NOTE | 2017-06-02 21:03 | PN ---
SUBJECTIVE: The patient is seen and examined on the bedside, complaining about generalized body aches due to suspicion of lupus. We tried Tylenol, morphine and patient ALLERGIC WITH TRAMADOL, want morphine derivatives. Discussion done with Dr. Snowden and patient's nurse, Miesha. Patient is having generalized body aches. No fever. No chills. PICC line is removed, do not look like in any distress. PHYSICAL EXAMINATION: VITAL SIGNS: Temperature 97, pulse 50, blood pressure 102/60, and respiratory rate 18. HEENT: Head is normocephalic and atraumatic. Eyes; PERRLA. Extraocular muscles are intact. Conjunctivae are clear. Nose is patent. NECK: Supple. No carotid bruit. No JVD or thyromegaly. CHEST: Bilaterally symmetrical. HEART: S1 and S2 positive. LUNGS: Clear to auscultation. ABDOMEN: Soft. Bowel sounds present. No organomegaly. EXTREMITIES: No edema. No cyanosis. NEUROLOGICAL: Patient is awake and alert. Moving all 4 extremities. No focal deficits. MEDICATIONS: Dilaudid, Flonase, Lasix, Lipitor, micafungin, ibuprofen, [place] nasal spray, Phenergan, Primacor, Tessalon, Tylenol, vitamin D, Xanax, and Zestril. LABORATORY DATA: White blood cell is 14.9, hemoglobin 12.0, hematocrit 38.7, platelets 249. Sodium 138, potassium 4.2, BUN 29, creatinine 0.9, glucose 94. ASSESSMENT AND PLAN: Ms. Karan Brown is a 51-year-old lady with leukocytosis, increased BUN, hyperglycemia, proteinuria, hematuria, urinary tract infection, influenza is negative, has multiple medical problems, history of right breast cellulitis, history of right mastitis, history of Serratia sepsis, pulmonary embolism, asthma, depression, panic disorder, anxiety, has flu like symptoms, yeast in the blood, fungemia secondary to PICC line. Patient had two other sources of possibilities of fungemia, pacemaker, and defibrillator. We are waiting for the identification of the yeast. We will repeat blood cultures. Patient should have ophthalmology examination as per Infectious Disease. We will call line walker consult. Dr. Snowden discontinued the meropenem and continue anti fungal . We are still awaiting for the culture identification. PICC line is removed. We will wait for clearance of the infection before we have to put another line. Discussion done with Dr. Snowden and patient's nursing staff and the patient. We will continue present treatment, gastrointestinal and deep vein thrombosis prophylaxis. Repeat labs. We will follow. Estelle Tariq MD MTDD
[2017-06-03] MEDS: HYDROmorphone 0.5 mg/0.5 ml ISec IVP PRN ×2 (00:55→20:21)
--- NOTE | 2017-06-03 01:19 | PN ---
DATE: 06/02/2017 REFERRING PHYSICIAN: Dr. Tariq. SUBJECTIVE: The patient is ambulating in the room, sitting in the chair. Night was unremarkable. PICC line has been discontinued. Continue antibiotics from the peripheral IV, also getting Primacor from peripheral IV. No cough. No sputum production. No nausea. No vomiting. No diarrhea. No leg pain or leg swelling. PHYSICAL EXAMINATION: GENERAL: In no acute distress. VITAL SIGNS: Temperature of 98, heart rate is 70, respiratory rate is 18, blood pressure is 111/77, pulse oximetry is 99% on room air. HEENT: Moist mucous membranes. Crowded airway. NECK: Supple. No JVD. LUNGS: Has a fair airflow with few rhonchi. HEART: S1 and S2. ABDOMEN: Soft and nontender. No organomegaly. EXTREMITIES: No edema. NEUROLOGIC: Awake, alert, follows simple commands. MEDICATIONS: She is on Dilaudid 0.25 mg q.6 hours p.r.n., Flonase one spray each nostril daily, Lasix 40 mg IV daily, Lipitor 40 mg daily, micafungin 100 mg daily, Motrin 400 mg q.6 hours p.r.n., nasal saline p.r.n. basis, Phenergan 12.5 mg 3 times a day p.r.n., Primacor IV drip, Tessalon Perles 100 mg 3 times a day, Tylenol p.r.n., vitamin D 1000 international unit daily, Xanax 0.25 mg 3 times a day p.r.n., Zestril 2.5 mg daily. LABORATORY DATA: Shows hemoglobin 12.0, hematocrit 38.7, WBC 14.9, platelet is 249. INR 2.80. Sodium 138, potassium 4.2, chloride 102, bicarbonate 28, BUN 29, creatinine 0.9, glucose 94, calcium 8.5, phosphorus 14.6, magnesium 2.1, AST 27, ALT 33, alkaline phosphatase is 72, albumin is 3.3. TSH 0.04. Microbiology, one of the blood culture has a yeast. Sputum has Klebsiella and Citrobacter. IMPRESSION AND PLAN: Severe cardiomyopathy, Primacor dependent, sinusitis with a post nasal drip, bronchitis, chronic lung disease, has fungemia. Continue bronchodilator. Keep head at 45 degree. Antibiotics as per Infectious Disease, is being followed by Cardiology. Thank you and we will follow with you. Roberto Mcarthur MD
[2017-06-03 06:35] LABS: BASO # 0.01 K/mm3 (0.0-2.0); BASO % 0.1 % (0.0-3.0); EOS # 0.1 (0.0-0.7); EOS % 0.8 % (1.5-5.0); GRAN # 4.64 (1.4-6.5); GRAN % 63.2 % (50.0-68.0); HEMOGLOBIN 12.4 g/dL (12.0-16.0); LYMPH # 1.7 (1.2-3.4); LYMPH % 22.4 % (22.0-35.0); MEAN CELL VOLUME 85.1 fl (80.0-105.0); MEAN CORPUSCULAR HEMOGLOBIN 26.4 pg (25.0-35.0); MEAN PLATELET VOLUME 10.8 fl (7.0-11.0); MONO % 13.5 % (1.0-6.0); RBC 4.7 10^6/uL (3.5-6.1); RED CELL DISTRIBUTION WIDTH 15.7 % (11.5-14.5); WHITE BLOOD COUNT 7.4 10^3/ul (4.5-11.0)
[2017-06-03 07:30] LABS: BLOOD UREA NITROGEN 36 mg/dL (7-21); CALCIUM 8.3 mg/dL (8.4-10.5); GFR AFRICAN-AMERICAN > 60; GFR NON-AFRICAN AMERICAN > 60
[2017-06-03] MEDS: Milrinone 20mg/100ml D5W 100 ML IV PRN ×2 (10:01→20:27)
[2017-06-03] MEDS: Cholecalciferol 1,000 INTLU TAB PO SCH (11:29)
[2017-06-03] MEDS: Micafungin 100 MG in Sodium Chloride 0.9% 100 ML IV SCH (11:29)
[2017-06-03] MEDS: Fluticasone Nasal 50 mcg/Spray NS SCH (11:30)
--- NOTE | 2017-06-03 13:48 | PN ---
DATE: 06/03/2017 LOCATION: The patient is in room 365, bed 1. REASON FOR CONSULTATION AND FOLLOWUP: Cardiomyopathy, status post AICD insertion, history of nonischemic cardiomyopathy admitted with flu-like symptoms. The patient is on Primacor at home, rule out endocarditis, fungemia (blood culture positive for fungus). SUBJECTIVE: The patient is lying flat in bed without any chest pain, shortness of breath, or any palpitation. PICC line has been removed with possibility of source of infection. PHYSICAL EXAMINATION: VITAL SIGNS: Blood pressure 100/64, respirations 20, pulse 66, and temperature 97.7. HEENT: Head is normocephalic. Eyes, pupils normal. Conjunctivae normal. Nose and throat normal. NECK: JVP low. Carotids equal. THORAX: AP diameter normal. LUNGS: Clear. CARDIOVASCULAR: S1 and S2. ABDOMEN: Soft and nontender. No organomegaly. Bowel sounds normal. EXTREMITIES: No clubbing. No cyanosis. LABORATORY DATA: WBC 10.4, hemoglobin 12.4, hematocrit 40.0, and platelets 216. Sodium 136, potassium 4.0, BUN 36, and creatinine 0.9. DIAGNOSES: Fungus in the bladder, rule out fungal endocarditis. The regular echocardiogram did not show any evidence of endocarditis. The patient is on Primacor with ejection fraction of 15% to 20% on Primacor. Mild tricuspid regurgitation, mild mitral regurgitation, mild pulmonary insufficiency, right ventricular systolic pressure of 29 mmHg, no vegetation noted, history of nonischemic cardiomyopathy, status post automatic implantable cardioverter-defibrillator insertion, and history of once endocarditis on automatic implantable cardioverter-defibrillator and it was replaced. The patient had single chamber VVI on the left side of the chest later on. The patient was on LifeVest and later on the patient had defibrillator on the left axillary line, so the patient has separately inserted defibrillator and pacemaker, so the patient has 2 lines. PLAN: Case was discussed with Dr. Snowden by Dr. Jones with the possibility that since the PICC line has been removed, new blood culture, if they become positive, then we can consider RANJEET, but if blood culture is negative, then we should continue the therapy presuming that PICC line was the source of infection. Dr. Kahn in [facility] has been following the patient with AICD. We will continue antibiotics as per Infectious Diseases. The patient is on lisinopril 2.5 mg daily, Primacor drip continued as before, Lipitor 40 daily, furosemide 40 IV daily, potassium 20 mEq p.o. daily. We will follow. Roberto Lopez MD
--- NOTE | 2017-06-03 13:55 | PN ---
DATE: 06/03/2017 SUBJECTIVE: The patient is seen early this morning in room 365, bed 2. The patient is in bed, in no acute distress. PHYSICAL EXAMINATION: VITAL SIGNS: Temperature is 97, blood pressure is 103/60, and respiratory rate of 18. HEENT: Examination of HEENT is unremarkable. NECK: Supple. LUNGS: Decreased breath sounds. HEART: Normal S1 and S2. ABDOMEN: Soft and nontender. LABORATORY DATA: Laboratory examination reveals a white count of 7.4, hemoglobin of 12, and platelets of 216. Chemistries revealed the patient has a BUN of 36, creatinine of 0.9 and procalcitonin is noted to be 0.15. Microbiology reveals the patient's repeat blood cultures have yeast and initial one is Ashley parapsilosis. ASSESSMENT AND PLAN: This is a 51-year-old female who is here early this morning with a history of right breast cellulitis, history of right mastitis, history of Serratia, sepsis, history of pulmonary emboli, asthma, history of cerebrovascular accident, cardiomyopathy, congestive heart failure, lupus, sexually transmitted diseases, anxiety, depression and panic disorder who is admitted with flu-like symptoms, found to have sepsis with Ashley parapsilosis and fungemia. She has a peripherally inserted central catheter line which was removed. Repeat blood cultures had still positive for yeast. The patient has a two pacemakers, one is in her chest wall and a new defibrillator which is in the left flank, either one of these may be infected. Should have an Ophthalmology examination to rule out eye involvement of yeast. Currently on micafungin. We will repeat blood cultures again and we will check on the yeast sensitivity of the Ashley parapsilosis. Catheter tip culture is still pending. We will discuss with Dr. Jones regarding possibility of the pacemaker involvement either one, one in the chest wall and a left flank defibrillator. Cristóbal Snowden MD
[2017-06-03] MEDS: Albuterol-Ipratrop 3 mg / 0.5 (3 ml) UD IH SCH ×2 (15:44→20:54)
[2017-06-03] MEDS ORDERED: HYDROCORTISONE 20 MG PO SCH (18:00)
--- NOTE | 2017-06-03 21:10 | CP.PCM.PN ---
<Sandee Caceres - Last Filed: 06/03/17 21:06> Subjective - Date & Time of Evaluation Date of Evaluation: 06/03/17 Time of Evaluation: 06:00 - Subjective Subjective: 51yr female w/ history of non-ischemic cardiomyopathy s/p AICD , recent [place] [address] Kahn, s/p endocarditis, on heart transplant list RW, patent foramen ovale, ASD, on LifeVest milirone drip @ home & coumadin, SLE, stroke, R sided weakness, Pulmonary embolism, Anxiety, depression & R breast cellulitis. She is seated in chair at bedside eating her dinner. She reports improvement of tenderness sinuses. She continues to report vaginal discomfort from a secondary yeast infection. Fungemia detected in blood cultures and she is aware that she is on IV anti-fungals. Denies any headaches, N/V, fevers, constipation, diarrhea, urinary changes or distress Objective - Vital Signs/Intake and Output Vital Signs (last 24 hours): Temp Pulse Resp BP Pulse Ox 98.4 F 73 18 109/75 97 06/03/17 20:00 06/03/17 20:00 06/03/17 20:00 06/03/17 20:00 06/03/17 20:00 Intake and Output: 06/03/17 06/04/17 18:59 06:59 Intake Total 920 100 Balance 920 100 - Medications Medications: Current Medications Acetaminophen (Tylenol 325mg Tab) 325 mg PO TID PRN PRN Reason: Pain, Mild (1-3) Last Admin: 06/03/17 08:34 Dose: 325 mg Albuterol/Ipratropium (Duoneb 3 Mg/0.5 Mg (3 Ml) Ud) 3 ml IH [id number] [facility] Last Admin: 06/03/17 20:54 Dose: 3 ml Alprazolam (Xanax) 0.25 mg PO TID PRN; Protocol PRN Reason: Anxiety Stop: 06/06/17 18:01 Last Admin: 06/02/17 10:00 Dose: 0.25 mg Atorvastatin Calcium (Lipitor) 40 mg PO DIN [facility] Last Admin: 06/03/17 18:14 Dose: 40 mg Benzonatate (Tessalon Perles) 100 mg PO TID [facility] Last Admin: 06/03/17 18:14 Dose: 100 mg Cholecalciferol (Vitamin D) 1,000 intlu PO DAILY [facility] Last Admin: 06/03/17 11:29 Dose: 1,000 intlu Famotidine (Pepcid) 20 mg PO 1000,2200 [facility] Fluticasone Propionate (Flonase) 1 actuation NS DAILY [facility] Last Admin: 06/03/17 11:30 Dose: 1 actuation Folic Acid (Folic Acid) 1 mg PO DAILY [facility] Furosemide (Lasix) 40 mg IV DAILY [facility] Last Admin: 06/03/17 11:36 Dose: Not Given Hydrocortisone (Cortef) 20 mg PO BID [facility] Last Admin: 06/03/17 18:17 Dose: 20 mg Hydromorphone HCl (Dilaudid) 0.25 mg IVP Q6H PRN PRN Reason: Pain, severe (8-10) Last Admin: 06/03/17 20:21 Dose: 0.25 mg Milrinone Lactate/Dextrose (Primacor 20mg/100ml D5w) 100 mls @ 9.032 mls/hr IV .Q11H5M PRN; Protocol; 0.375 MCG/KG/MIN PRN Reason: TITRATE PER MD ORDER Last Admin: 06/03/17 20:27 Dose: 0.375 mcg/kg/min, 9.032 mls/hr Micafungin Sodium 100 mg/ (Sodium Chloride) 100 mls @ 100 mls/hr IV DAILY ANA LILIA PRN Reason: Protocol Stop: 06/30/17 10:01 Last Admin: 06/03/17 11:29 Dose: 100 mls/hr Ibuprofen (Motrin Tab) 400 mg PO Q6H PRN PRN Reason: Pain, moderate (4-7) Last Admin: 06/01/17 19:33 Dose: 400 mg Lisinopril (Zestril) 2.5 mg PO DAILY [facility] Last Admin: 06/03/17 12:22 Dose: Not Given Loratadine (Claritin) 10 mg PO DAILY [facility] Potassium Chloride (K-Dur 20 Meq Er Tab) 20 meq PO 0800 [facility] Promethazine HCl (Phenergan Syrup) 12.5 mg PO TID PRN PRN Reason: Cough Last Admin: 06/01/17 22:14 Dose: 12.5 mg Sodium Chloride (Timonium Nasal [place]) 1 ml NS Q4 [facility] Last Admin: 06/03/17 20:06 Dose: Not Given - Labs Labs: 06/03/17 05:30 06/03/17 05:30 PT 31.5 SECONDS (9.4-12.5) H 06/02/17 06:00 INR 2.80 (0.93-1.08) H 06/02/17 06:00 APTT 49.7 Seconds (25.1-36.5) H 05/30/17 07:15 - Constitutional Appears: Well - Head Exam Head Exam: ATRAUMATIC, NORMAL INSPECTION, NORMOCEPHALIC - Eye Exam Eye Exam: EOMI, Normal appearance, PERRL Pupil Exam: NORMAL ACCOMODATION, PERRL - ENT Exam ENT Exam: Mucous Membranes Moist, Normal Exam - Neck Exam Neck Exam: Full ROM, Normal Inspection. absent: Lymphadenopathy - Respiratory Exam Respiratory Exam: Clear to Ausculation Bilateral, NORMAL BREATHING PATTERN - Cardiovascular Exam Cardiovascular Exam: REGULAR RHYTHM, +S1, +S2. absent: Murmur - GI/Abdominal Exam GI & Abdominal Exam: Soft, Normal Bowel Sounds. absent: Tenderness - Neurological Exam Neurological Exam: Alert, Awake, CN II-XII Intact, Normal Gait, Oriented x3 - Psychiatric Exam Psychiatric exam: Normal Affect, Normal Mood - Skin Skin Exam: Dry, Intact, Normal Color, Warm Assessment and Plan (1) Fungemia Status: Acute (2) Shortness of breath Status: Acute (3) Cough Status: Acute (4) Antiphospholipid antibody syndrome Status: Acute (5) Hypercoagulopathy Status: Acute (6) Hyperkalemia Status: Acute (7) Hyperlipidemia Status: Acute (8) CHF exacerbation Status: Acute (9) Acute on chronic diastolic CHF (congestive heart failure) Status: Chronic (10) Viral syndrome Status: Acute (11) Sinusitis Status: Resolved - Assessment and Plan (Free Text) Plan: Continue monitoring of LFTs on Micafungin for Fungemia. Continue IV primacor and prescribed plan of care. Consult w. Ophthalmology pending. Consults: Pulmonary - = continue bronchodilator, keep INR 2.5 I.D. - Dr. Schuler = Two pacemakers (Chest wall) & (L flank), may be source of yeast infection. Consult ophthalmology to R/O eye yeast infecton. Cardio - Dr. Davis = Repeat blood cultures. If positive, do RANJEET. If negative, assume PICC was source of infection. Continue milirone, Lipitor, furosemide, potassium. Architectural Design Lecturer - Dr. Bonilla = hold coumadin Reviewed: Blood culture = (+) [place] parapsilosis CXR = (+) Pacemaker, WNL ECHO = LVEF 12.4%, systolic function EF 15-20%, AICD/PPM in RA/RV ECG = ABNORMAL: Accelerated junctional rhythm, L axis deviation, inferior infarct, prolonged QT <Estelle Tariq - Last Filed: 06/04/17 16:35> Subjective - Subjective Subjective: pt is seen and examined at bed side , looking comfortable ,getting i/v antifungal . home meds started . getting pain meds , oob , pt, id is on the case . waiting for the results of repeat blood cultures , will get pick line by Ir , cot. same treatment. Objective - Vital Signs/Intake and Output Vital Signs (last 24 hours): Temp Pulse Resp BP Pulse Ox 97.7 F 72 20 100/61 98 06/04/17 08:25 06/04/17 09:40 06/04/17 08:25 06/04/17 09:40 06/04/17 08:25 Intake and Output: 06/04/17 06/04/17 06:59 18:59 Intake Total 940 100 Balance 940 100 - Medications Medications: Current Medications Acetaminophen (Tylenol 325mg Tab) 325 mg PO TID PRN PRN Reason: Pain, Mild (1-3) Last Admin: 06/03/17 08:34 Dose: 325 mg Albuterol/Ipratropium (Duoneb 3 Mg/0.5 Mg (3 Ml) Ud) 3 ml IH [id number] [facility] Last Admin: 06/04/17 13:18 Dose: 3 ml Alprazolam (Xanax) 0.25 mg PO TID PRN; Protocol PRN Reason: Anxiety Stop: 06/06/17 18:01 Last Admin: 06/02/17 10:00 Dose: 0.25 mg Atorvastatin Calcium (Lipitor) 40 mg PO DIN [facility] Last Admin: 06/03/17 18:14 Dose: 40 mg Benzonatate (Tessalon Perles) 100 mg PO TID [facility] Last Admin: 06/04/17 13:41 Dose: 100 mg Cholecalciferol (Vitamin D) 1,000 intlu PO DAILY [facility] Last Admin: 06/04/17 09:39 Dose: 1,000 intlu Famotidine (Pepcid) 20 mg PO 1000,2200 [facility] Last Admin: 06/04/17 09:39 Dose: 20 mg Fluticasone Propionate (Flonase) 1 actuation NS DAILY [facility] Last Admin: 06/04/17 09:39 Dose: 1 actuation Folic Acid (Folic Acid) 1 mg PO DAILY [facility] Last Admin: 06/04/17 09:39 Dose: 1 mg Furosemide (Lasix) 40 mg IV DAILY [facility] Last Admin: 06/04/17 09:39 Dose: 40 mg Hydrocortisone (Cortef) 20 mg PO BID [facility] Last Admin: 06/04/17 09:38 Dose: 20 mg Hydromorphone HCl (Dilaudid) 0.25 mg IVP Q6H PRN PRN Reason: Pain, severe (8-10) Last Admin: 06/03/17 20:21 Dose: 0.25 mg Milrinone Lactate/Dextrose (Primacor 20mg/100ml D5w) 100 mls @ 9.032 mls/hr IV .Q11H5M PRN; Protocol; 0.375 MCG/KG/MIN PRN Reason: TITRATE PER MD ORDER Last Admin: 06/04/17 09:40 Dose: 0.375 mcg/kg/min, 9.032 mls/hr Micafungin Sodium 100 mg/ (Sodium Chloride) 100 mls @ 100 mls/hr IV DAILY ANA LILIA PRN Reason: Protocol Stop: 06/30/17 10:01 Last Admin: 06/04/17 09:43 Dose: 100 mls/hr Ibuprofen (Motrin Tab) 400 mg PO Q6H PRN PRN Reason: Pain, moderate (4-7) Last Admin: 06/01/17 19:33 Dose: 400 mg Lisinopril (Zestril) 2.5 mg PO DAILY [facility] Last Admin: 06/04/17 09:40 Dose: 2.5 mg Loratadine (Claritin) 10 mg PO DAILY [facility] Last Admin: 06/04/17 09:39 Dose: 10 mg Potassium Chloride (K-Dur 20 Meq Er Tab) 20 meq PO 0800 [facility] Last Admin: 06/04/17 08:38 Dose: 20 meq Promethazine HCl (Phenergan Syrup) 12.5 mg PO TID PRN PRN Reason: Cough Last Admin: 06/01/17 22:14 Dose: 12.5 mg Sodium Chloride (Timonium Nasal [place]) 1 ml NS Q4 [facility] Last Admin: 06/04/17 12:20 Dose: 1 dose - Labs Labs: 06/03/17 05:30 06/03/17 05:30 PT 31.5 SECONDS (9.4-12.5) H 06/02/17 06:00 INR 2.80 (0.93-1.08) H 06/02/17 06:00 APTT 49.7 Seconds (25.1-36.5) H 05/30/17 07:15 Assessment and Plan - Assessment and Plan (Free Text) Plan: pt is seen and examined at bed side , looking comfortable getting iv meds . waiting for culture , agreed all above
--- NOTE | 2017-06-04 00:15 | PN ---
DATE: 06/03/2017 REFERRING PHYSICIAN: Estelle Tariq MD SUBJECTIVE: She is sitting at the side of the bed. Her night was unremarkable. No headache. No rhinitis. No nausea. No vomiting. No diarrhea. No leg pain or leg swelling. PHYSICAL EXAMINATION: GENERAL: No acute distress. VITAL SIGNS: Temperature is 98, heart rate is 68, respiratory rate is 18, blood pressure is 94/62, pulse oximetry is 95% on room air. HEENT: Moist mucous membranes. No ulcer or thrush noted. NECK: Supple. No JVD. LUNGS: Has a fair airflow with rhonchi. HEART: S1 and S2. ABDOMEN: Soft and nontender. No organomegaly. EXTREMITIES: No edema. NEUROLOGIC: Awake, alert, and follows simple commands. MEDICATIONS: She is on Claritin 10 mg daily, hydrocortisone 20 mg twice a day, Dilaudid 0.25 mg IV q.6 hours p.r.n., DuoNeb q.6 hour, Flonase 1 spray each nostril daily, folic acid 1 mg daily, potassium 20 mEq daily, Lasix 40 mg daily, Lipitor 40 mg daily. She is getting micafungin 100 mg daily, Motrin p.r.n. basis, nasal saline 2 sprays each nostrils q.4 hours, Pepcid 20 mg twice a day, promethazine 12.5 mg three times a day p.r.n., Primacor IV, Tessalon Perles 3 times a day, Tylenol p.r.n., vitamin D 1000 mcg daily, Xanax 0.25 mg three times a day p.r.n., and Zestril 2.5 mg daily. LABORATORY DATA: Shows hemoglobin 12.4, hematocrit 40.0, WBC 7.4, platelets are 216. Sodium 136, potassium 4.0, chloride 100, bicarbonate 27, BUN 36, creatinine 0.9, glucose 73, calcium is 8.3. She has a blood culture positive for yeast. Catheter tip positive for yeast and Gram-positive cocci; and recent blood culture has Ashley parapsilosis. IMPRESSION AND PLAN: Severe cardiomyopathy, Primacor dependent, sinusitis, fungemia, and bronchitis. Continue antibiotics as per Infectious Disease. Continue nasal saline. PICC line has been removed. Thank you and we will follow with you. Roberto Mcarthur MD [facility] # [id number]
[2017-06-04] MEDS: Albuterol-Ipratrop 3 mg / 0.5 (3 ml) UD IH SCH ×4 (04:39→20:33)
[2017-06-04] MEDS: Potassium Chloride 20 mEq ER Tab PO SCH (08:38)
[2017-06-04] MEDS: Cholecalciferol 1,000 INTLU TAB PO SCH (09:39)
[2017-06-04] MEDS: Fluticasone Nasal 50 mcg/Spray NS SCH (09:39)
[2017-06-04] MEDS: Milrinone 20mg/100ml D5W 100 ML IV PRN ×2 (09:40→22:12)
[2017-06-04] MEDS: Micafungin 100 MG in Sodium Chloride 0.9% 100 ML IV SCH (09:43)
--- NOTE | 2017-06-04 19:43 | PN ---
DATE: 06/04/2017 PULMONARY PROGRESS NOTE REFERRING PHYSICIAN: Estelle Tariq MD SUBJECTIVE: She is sitting side of the bed. Doing well. Getting antibiotics. Rhinitis, cough and shortness of breath is better. No nausea. No vomiting. No diarrhea. No leg pain or leg swelling. PHYSICAL EXAMINATION GENERAL: In no acute distress. VITAL SIGNS: Temperature is 98, heart rate is 60, respiratory rate is 20, blood pressure is 100/61, pulse oximetry is 98% on room air. HEENT: Moist mucous membranes. No ulcer or thrush noted. NECK: Supple. No JVD. LUNGS: Has a fair airflow with rhonchi. HEART: S1 and S2. ABDOMEN: Soft and nontender. No organomegaly. EXTREMITIES: No edema. NEUROLOGIC: Awake, alert, and follows simple commands. MEDICATIONS: She is on Claritin 10 mg daily, hydrocortisone 20 mg twice a day, Dilaudid 0.25 mg q. 6 hours p.r.n., DuoNeb q. 6 hour, Flonase 1 spray each nostril daily, folic acid 1 mg daily, potassium 20 mEq daily, Lasix 40 mg daily, Lipitor 40 mg daily, micafungin 100 mg daily, Motrin 400 mg q. 6 hours p.r.n., Pepcid 20 mg twice a day, Phenergan 12.5 mg 3 times a day p.r.n., Primacor IV drip, Tessalon Perles 100 mg 3 times a day, Tylenol p.r.n., vitamin D 1000 international unit daily, Xanax 0.25 mg 3 times a day p.r.n., and Zestril 2.5 mg daily. LABORATORY DATA: Reviewed. Microbiology: Blood culture repeat still have a yeast in the blood. IMPRESSION AND PLAN: Severe cardiomyopathy, Primacor dependent, sinusitis which is improved, bronchitis, fungemia, probably line related. Pulmonary point of view doing well. We will continue steroids. Continue antibiotics as per Infectious Disease, supplement oxygen. Continue Primacor. Thank you and we will follow with you. Roberto Mcarthur MD [facility] # [id number]
--- NOTE | 2017-06-04 20:01 | PN ---
DATE: SUBJECTIVE: The patient is a 51-year-old female seen in her room. Her boyfriend was sitting, looking comfortable, improving, and body aches are decreasing. No nausea, vomiting, or diarrhea. No hematuria or hematochezia. No headache. No dizziness. No chest pain or palpitation. No shortness of breath. Cough is better. PHYSICAL EXAMINATION: VITAL SIGNS: Temperature 98.6, pulse 84, blood pressure 100/61, and respiratory rate 18. HEENT: Head; normocephalic and atraumatic. Eyes; PERRLA. Extraocular muscles intact. Conjunctivae clear. Nose patent. Mucous membranes moist. NECK: Supple. No carotid bruits. No JVD or thyromegaly. CHEST: Bilaterally symmetrical. HEART: S1 and S2 positive. LUNGS: Clear to auscultation. ABDOMEN: Soft. Bowel sounds positive. No organomegaly. EXTREMITIES: No edema. No cyanosis. NEUROLOGIC: The patient is awake and alert. Moving all four extremities. No focal deficits. MEDICATIONS: Claritin, hydrocortisone, Dilaudid, DuoNeb, Flonase, folic acid, potassium, Lasix, Lipitor, micafungin, ibuprofen, NS, nasal spray, Pepcid, Phenergan, Primacor drip, Tessalon, Tylenol, vitamin D, Xanax, and Zestril. LABORATORY DATA: White blood cell is 7.4, on 06/01/2017 it was 17.2; hemoglobin 12.4; hematocrit 40.0 and platelets 216. Sodium 136, potassium 4.0, BUN 36, creatinine 0.9, and calcium 8.3. ASSESSMENT AND PLAN: Ms. Stephanie Siddiqui is a 51-year-old lady with leukocytosis, increased BUN, hypocalcemia, hyperglycemia, proteinuria, hematuria, influenza type A antibody is positive, history of lupus, severe cardiomyopathy, on Primacor drip; sinusitis; fungemia; and bronchitis. Continue antibiotics and antifungal medications. Peripherally inserted central catheter line has been removed and put for culture using peripheral line, awaiting for repeat blood culture as soon as it will be negative will put another peripherally inserted central catheter line, history of breast cellulitis, right mastitis, history of Serratia, sepsis, pulmonary emboli, asthma, history of cerebrovascular accident, congestive heart failure, history of sexually transmitted diseases, anxiety, depression, panic disorder, was admitted with flu-like symptoms, found to have sepsis with Ashley parapsilosis and fungemia. She has peripheral insertion central catheter line, which has removed. Repeat blood cultures has still positive for yeast. The patient has 2 pacemakers, one is in the chest wall and new defibrillator, which is in the left flank, either one of this may be infected. Should have Ophthalmology consult as per Infectious Disease , because of fungemia . We will repeat blood culture and we will await for that. We will check sensitivity of Ashley parapsilosis. Catheter tip culture is still pending. Awaiting for Dr. Jones's input for pacemaker involvement either one in the chest wall or left flank defibrillator. Length of time discussion done with the patient. We will continue present treatment. Gastrointestinal and deep venous thrombosis prophylaxis. Repeat labs. We will followup. Estelle Tariq MD [email or web address]
[2017-06-04] MEDS: HYDROmorphone 0.5 mg/0.5 ml ISec IVP PRN (20:51)
--- NOTE | 2017-06-04 20:55 | PN ---
DATE: 06/04/2017 SUBJECTIVE: The patient is seen early this morning, in no acute distress, nontoxic. PHYSICAL EXAMINATION VITAL SIGNS: On exam, temperature is 98, blood pressure is 112/70, respiratory rate of 16. HEENT: Unremarkable. NECK: Supple. LUNGS: Have decreased breath sounds. HEART: Normal S1 and S2. ABDOMEN: Soft, nontender. LABORATORY EXAMINATION: Reveals the patient white count of 7.4, hemoglobin of 12, BUN of 36, creatinine of 0.9. Urinalysis is noted and serology is noted. Microbiology reveals blood cultures have yeast, Ashley parapsilosis, sensitivity is pending. Catheter tip is positive for Ashley albicans and a gram-positive cocci. We will check on the identification of the gram-positive cocci and we are awaiting for sensitivity of Ashley parapsilosis. Dr. Lopez's note is reviewed from yesterday. ASSESSMENT AND PLAN: This is a 51-year-old female who was seen earlier this morning with history of right breast cellulitis, history of right mastitis, Serratia, sepsis, history of pulmonary embolism, asthma, history of cerebrovascular accident, cardiomyopathy, congestive heart failure, lupus, sexually transmitted disease, anxiety, depression, panic disorder, who was admitted now with sepsis with Ashley parapsilosis fungemia, had a PICC line which was removed. The patient had also a pacemaker in her left chest, she also has a new defibrillator in her left flank which is only a few months old, currently on micafungin. The repeat blood cultures are positive again for yeast; however, the third set as of 24 hours is negative. We will follow with you. Cristóbal Snowden MD
[2017-06-05] MEDS: Albuterol-Ipratrop 3 mg / 0.5 (3 ml) UD IH SCH ×5 (02:16→19:56)
[2017-06-05] MEDS: HYDROmorphone 0.5 mg/0.5 ml ISec IVP PRN ×2 (03:09→16:56)
[2017-06-05] MEDS: Potassium Chloride 20 mEq ER Tab PO SCH (08:05)
[2017-06-05] MEDS: Micafungin 100 MG in Sodium Chloride 0.9% 100 ML IV SCH (09:54)
[2017-06-05] MEDS: Fluticasone Nasal 50 mcg/Spray NS SCH (09:54)
[2017-06-05] MEDS: Cholecalciferol 1,000 INTLU TAB PO SCH (09:54)
[2017-06-05] MEDS: Milrinone 20mg/100ml D5W 100 ML IV PRN ×2 (09:56→22:48)
--- NOTE | 2017-06-05 10:51 | PN ---
DATE: 06/05/2017 SUBJECTIVE: The patient is in bed, in no acute distress, nontoxic. No fevers and chills. PHYSICAL EXAMINATION: VITAL SIGNS: Temperature is 98, blood pressure is 120/70, respiratory rate of 16. HEENT: Examination of HEENT is unremarkable. NECK: Supple. LUNGS: Have decreased breath sounds. HEART: Normal S1 and S2. ABDOMEN: Soft, nontender. LABORATORY DATA: Laboratory examination revealed the patient has cultures, the initial cultures grew Ashley parapsilosis. The repeat cultures are growing Ashley glabrata in the blood. The third set of cultures from 06/03/2017 are no growth at 48 hours. White count is 7.4, hemoglobin of 12. Chemistries are noted. Urinalysis is noted. Complement is reviewed. Microbiology also of the catheter tip, cultures growing Enterococcus faecalis and Ashley albicans. Enterococcus faecalis is ampicillin sensitive and Dr. Mcarthur's note is reviewed and Dr. Tariq's note is reviewed. ASSESSMENT AND PLAN: A 51-year-old female who was seen earlier this morning. The patient has a history of right breast cellulitis and a right mastitis, history of Serratia, sepsis, history of pulmonary embolism, asthma, cerebrovascular accident and cardiomyopathy, congestive heart failure, lupus, sexually transmitted disease and anxiety, depression, who is admitted on this admission with sepsis with Ashley parapsilosis fungemia. Blood cultures and a repeat blood cultures now are growing Ashley glabrata. The patient did have a peripherally inserted central catheter line in, which is removed and the tip is growing Ashley albicans and Enterococcus and the patient has a pacemaker in the left chest wall and also defibrillator in the left flank. The peripherally inserted central catheter line was removed; however, concern about the infected defibrillator or pacemaker. Third blood cultures at this time sent on 06/03/2017 finally are no growth at 48 hours and currently the patient is on micafungin, will need at least 4 weeks of micafungin assuming cultures are negative from 06/03/2017. Today is day #3 of 28 days of micafungin. We will also add ampicillin for the enterococcus growing from the tip culture and Enterococcus faecalis from the catheter tip. Decision to further evaluate the pacemaker pending Dr. Jones's input regarding pacemaker or defibrillator infection. Cristóbal Snowden MD
[2017-06-05] MEDS: AMPicillin 2 GM in Sodium Chloride 0.9% 100 ML IVPB SCH ×3 (12:05→23:01)
--- NOTE | 2017-06-05 20:54 | PN ---
PULMONARY PROGRESS NOTE DATE: 06/05/2017 REFERRING PHYSICIAN: Estelle Tariq MD SUBJECTIVE: She is out of bed to chair and feels okay. No rhinitis. No cough. No nausea. No vomiting, diarrhea, leg pain, or leg swelling. OBJECTIVE: GENERAL: In no acute distress. VITAL SIGNS: Temperature is 98, heart rate is 71, respiratory rate is 18, blood pressure is 104/71, and pulse ox is 98% on room air. HEENT: Moist mucous membranes. Crowded airway. NECK: Supple. No JVD. HEART: S1 and S2. LUNGS: Has a fair airflow with rhonchi. ABDOMEN: Soft and nontender. No organomegaly. EXTREMITIES: There is no edema. NEUROLOGIC: Awake, alert, and follow simple commands. MEDICATIONS: She is on ampicillin 2 g IV q.6 hours, Claritin 10 mg daily, hydrocortisone 20 mg twice a day, Dilaudid 0.25 mg q.6 hours p.r.n., albuterol and Atrovent nebulizer q.6 hours, Flonase 1 spray each nostril daily, folic acid 1 mg daily, potassium 20 mEq daily, Lasix 40 mg daily, Lipitor 40 mg daily, micafungin 100 mg daily, Pepcid 20 mg twice a day, Phenergan syrup 12.5 mg three times a day p.r.n., Primacor IV drip, Tessalon Perles 100 mg three times a day, Tylenol p.r.n., vitamin D 1000 daily, Xanax 0.25 mg three times a day p.r.n., and Zestril 2.5 mg daily. LABORATORY DATA: Reviewed and noted. No new lab is available since yesterday. Repeat blood culture since yesterday so far there is no growth. IMPRESSION AND PLAN: Severe cardiomyopathy, Primacor dependent, history of sinusitis, peripherally inserted central catheter line related fungemia, also has Enterococcus, and history of systemic lupus erythematosus. Pulmonary point of view, doing okay. Continue bronchodilator, keep head at 45 degrees, antibiotics as per Infectious Disease, and being followed by Cardiology. Thank you and we will follow with you. Roberto Mcarthur MD
--- NOTE | 2017-06-05 21:26 | PN ---
DATE: SUBJECTIVE: The patient is seen and examined on the bedside, looking comfortable. No nausea, vomiting, or diarrhea. No hematuria or hematochezia. No headache. No chest pain. Body aches getting better. No constipation. PHYSICAL EXAMINATION: VITAL SIGNS: Temperature 97.4, pulse 62, blood pressure 104/71, and respiratory rate 20. HEENT: Head is normocephalic and atraumatic. Eyes; PERRLA. Extraocular muscles are intact. Conjunctivae are clear. Nose is patent. Mucous membrane moist. NECK: Supple. No carotid bruit. No JVD or thyromegaly. CHEST: Bilaterally symmetrical. HEART: S1 and S2 positive. LUNGS: Clear to auscultation. ABDOMEN: Soft. Bowel sounds present. No organomegaly. EXTREMITIES: No edema. No cyanosis. NEUROLOGICAL: Patient is awake and alert. Moving all 4 extremities. No focal deficits. MEDICATIONS: Ampicillin,Claritin, Cortef, Dilaudid, DuoNeb, Flonase, folic acid, potassium, Lasix, Lipitor, micafungin, [place] nasal spray, Pepcid, Phenergan, Primacor drip, Tessalon, Tylenol, vitamin D, Xanax, and Zestril. LABORATORY DATA: White blood cell is 7.4, hemoglobin 12.4, hematocrit 40.0, platelets 216. Sodium 136, potassium 4.0, BUN 36, creatinine 0.9, calcium 8.3. ASSESSMENT AND PLAN: Ms. Karan Brown is a 51-year-old female with history of leukocytosis improved, hyperglycemia, proteinuria, hematuria, urinary tract infection, influenza type A antibody titer is high, seen by Dr. Snowden, Infectious Disease and Dr. Mcarthur, Community Action Worker. The patient has history of lupus, severe cardiomyopathy on Primacor drip, sinusitis; fungemia; and bronchitis. Fungemia looks like viral related, history of right breast cellulitis, right mastitis, history of Serratia, sepsis, pulmonary embolism, asthma, cerebrovascular accident, congestive heart failure, sexually transmitted diseases, anxiety, depression, now has sepsis with Ashley parapsilosis, fungemia. Blood cultures had a repeat cultures now are growing Ashley glabrata. The patient has peripherally inserted central catheter line, which has removed and a tip growing Ashley albicans and Enterococcus and the patient has a pacemaker in the left chest wall and also defibrillator in the left flank. However, the concern about the infected defibrillator or pacemaker. Her blood cultures at this time sent on 06/03/2017 finally are no growth after 48 hours and currently the patient is on micafungin, will need at least 4 weeks of micafungin assuming cultures are negative from 06/03/2017. Today is day #3 of [address] Snowden added ampicillin also for enterococcus growing from the tip culture and Enterococcus faecalis from the catheter tip. Decision to further evaluation to the pacemaker depend on the editor managing director as per Dr. Snowden, regarding pacemaker or defibrillator infection. . Discussion done with the patient, the patient know the situation. Continue present treatment. Repeat labs. We will follow up. Estelle Tariq MD
[2017-06-06] MEDS: HYDROmorphone 0.5 mg/0.5 ml ISec IVP PRN ×2 (00:31→19:01)
[2017-06-06] MEDS: Albuterol-Ipratrop 3 mg / 0.5 (3 ml) UD IH SCH ×4 (01:19→19:25)
[2017-06-06] MEDS: AMPicillin 2 GM in Sodium Chloride 0.9% 100 ML IVPB SCH ×3 (05:22→17:30)
[2017-06-06] MEDS: Fluticasone Nasal 50 mcg/Spray NS SCH (09:55)
[2017-06-06] MEDS: Cholecalciferol 1,000 INTLU TAB PO SCH (09:57)
[2017-06-06] MEDS: Potassium Chloride 20 mEq ER Tab PO SCH (09:57)
[2017-06-06] MEDS: Micafungin 100 MG in Sodium Chloride 0.9% 100 ML IV SCH (09:59)
[2017-06-06] MEDS: Milrinone 20mg/100ml D5W 100 ML IV PRN ×2 (10:14→21:23)
--- NOTE | 2017-06-06 15:00 | PN ---
DATE: SUBJECTIVE: The patient is in bed in no acute distress, nontoxic and the patient is seen earlier this morning, she is doing well. OBJECTIVE: VITAL SIGNS: She has temperature of 98, blood pressure is 100/60, and respiratory rate of 18. HEENT: Unremarkable. NECK: Supple. LUNGS: Decreased breath sounds. HEART: Normal S1 and S2. ABDOMEN: Soft, nontender. LABORATORY DATA: Reveals white count of 7.4, hemoglobin of 12, and platelets of 216. Procalcitonin is 0.15. Urinalysis is noted. Influenza is noted. Microbiology is reviewed. ASSESSMENT AND PLAN: A 51-year-old female, who has a history of right breast cellulitis, right mastitis, history of Serratia, sepsis, history of pulmonary emboli, history of cerebrovascular accident, cardiomyopathy, congestive heart failure, lupus, sexually transmitted diseases, anxiety, and depression, admitted on this admission: 1. Sepsis with Ashley parapsilosis fungemia. Repeat blood cultures grew Ashley glabrata. The patient had a PICC line, which was removed, which grew Enterococcus and Ashley albicans and now finally repeat third set of cultures from the are no growth at 3 days. Currently, the patient is on Mycamine and ampicillin. Case discussed with Dr. Jones this morning with the need for a transesophageal echo. The patient does have a pacemaker in the left chest wall and a defibrillator in the left flank, which is new apparatus. Dr. Jones feels the patient has a short life expectancy and aggressive therapy as far as removing the pacemaker if it is infected is at high risk. I would recommend antifungal therapy. Today is day #4 of Mycamine and ampicillin, we would complete 28 days. Consider repeating transesophageal echo in a few days. Day #4 of at least 28 days of Mycamine and ampicillin. Cristóbal Snowden MD
--- NOTE | 2017-06-06 15:29 | PN ---
DATE: REASON FOR CONSULTATION AND FOLLOWUP: Cardiomyopathy, status post AICD, history of nonischemic cardiomyopathy, admitted with flu-like symptoms, on Primacor at home, rule out endocarditis, fungemia, positive blood culture for fungus. SUBJECTIVE: The patient denies any chest pain, shortness of breath, or any palpitation. The PICC line is discontinued day before yesterday. Repeat blood culture is negative since 29. Previous blood culture grew multiple species of fungus. OBJECTIVE: GENERAL: Not in distress. VITAL SIGNS: As follows; temperature afebrile, heart rate 80, blood pressure 100/62. HEENT: PERRLA. Extraocular muscles intact. NECK: Supple. No carotid bruits or thyromegaly. CHEST: Clear to auscultation. HEART: S1 and S2 regular. ABDOMEN: Soft. EXTREMITIES: Clubbing and cyanosis negative. LABORATORY DATA: Blood workup as follows; WBC 7.5, hemoglobin 12.4, hematocrit 40.0, platelet count 216. Chemistry shows sodium 130, potassium 4, chloride of 100, carbon dioxide 27, anion gap of 13, BUN 36, creatinine 0.9. Blood culture repeat is negative. Prior blood culture first one grew juan m parapsilosis. Repeat blood culture grew juan m albicans and juan m glabrata. IMPRESSION: Possible fungal endocarditis, rule out fungal endocarditis, sepsis, fungemia. The most recent echo was negative for endocarditis, ejection fraction of 20% on Primacor, mild tricuspid regurgitation, mild mitral regurgitation, mild pulmonary insufficiency, and systolic pressure 29. No vegetation noted on the echocardiogram. History of endocarditis, history of removal of automated implantable cardioverter-defibrillator. History of automated implantable cardioverter-defibrillator since 2003 because of cardiomyopathy secondary to lupus, first AICD placed in [place]. Most recently, the patient had removal of defibrillator and with a LifeVest and single-chamber pacemaker was placed later on, axillary area defibrillator was placed. I discussed in length with Dr. Snowden, though the patient had fungus in the blood, but all 3 different species, juan m albicans, juan m glabrata, and candidiasis lupus, and now the repeat blood cultures are negative. Since the removal of defibrillator is a very extensive procedure, the patient can on the table, so we will try to be in noninvasive way, and if the repeat blood culture is negative, we will continue 4 weeks of antifungal treatment, and then after one week somewhere at the end of June or beginning of July, we will repeat blood culture. If the blood culture remains negative, we will continue medically. If the blood culture comes back positive, then consider removal of the pacemaker. We will convey this message tomorrow to Dr. Mignon Kahn, who is the fha underwriter of the patient in [facility]. Today is holiday. We will convey this message to Dr. Kahn. So far, no need for RANJEET. Discussed in length with Dr. Sonwden above plan. We will discuss with you. Thank you Dr. Tariq for providing us the opportunity in taking care of the patient, Karan Brown. Repeat blood culture on is negative, after 3 days, we will follow the blood culture tomorrow. If remains negative, possible discharge home tomorrow on antifungal medication. Continue antifungal as per ID. Continue milrinone as per baseline. Currently, the patient is on Mycamine antifungal for 28 days to be completed on , and then we will wait for 1 week, and then repeat blood culture in July. Roberto Jones MD
--- NOTE | 2017-06-06 22:43 | PN ---
DATE: SUBJECTIVE: The patient is seen and examined on the bedside, looking comfortable, complaining about achy body. No nausea, vomiting or diarrhea. No hematuria or hematochezia. No swelling of the legs. No chest pain. No palpitation. Appetite is appropriate. Has bowel movements everyday. PHYSICAL EXAMINATION VITAL SIGNS: Temperature 97.7, pulse 79, blood pressure 103/70 and respiratory rate 20. HEENT: Head is normocephalic and atraumatic. Eyes; PERRLA. Extraocular muscles are intact. Conjunctivae clear. Nose patent. Mucous membranes moist. NECK: Supple. No carotid bruits, JVD or thyromegaly. CHEST: Bilateral symmetrical. HEART: S1 and S2 positive. LUNGS: Clear to auscultation. ABDOMEN: Soft. Bowel sounds present. No organomegaly. EXTREMITIES: No edema. No cyanosis. NEUROLOGIC: The patient is awake and alert. Moving all 4 extremities. No focal deficits MEDICATIONS: Ampicillin, Claritin, Dilaudid, DuoNeb, Flonase, folic acid, potassium, Lasix, Lipitor, micafungin, sodium, normal saline, Pepcid, Phenergan, Primacor drip, Tessalon Perles, Tylenol, vitamin D and Zestril. LABORATORY DATA: We do not have recent labs today, but reviewed old labs. ASSESSMENT AND PLAN: Ms. Stephanie Siddiqui is a 51-year-old lady with multiple medical problems, history of right mastitis, Serratia sepsis, history of pulmonary emboli, history of cerebrovascular accident, cardiomyopathy, congestive heart failure, lupus, anxiety, depression, has sepsis now with Ashley parapsilosis fungemia. Repeat blood culture grew Ashley glabrata. The patient had a peripherally inserted central catheter line, which was removed, which grew Enterococcus and Ashley albicans and now finally repeat third set of cultures from the no growth at 3 days. Now, the patient will continue on Mycamine and ampicillin. Length of time discussion done with Miesha, the patient's nurse. Labs orders for tomorrow. Dr. Snowden have discussion done with Dr. Jones with the need of the transesophageal echocardiogram. The patient has pacemaker in left chest wall and defibrillator in the left flank, which is a new apparatus. Dr. Jones feels, the patient has a short life expectancy and aggressive therapy as far as removing of pacemaker, if it is infected is at high risk. Getting antifungal therapy, day 4. According to Infectious Disease we have to complete 28 days. May be transesophageal echocardiography tomorrow. Gastrointestinal and deep venous thrombosis prophylaxis. Repeat labs. We will followup. Estelle Tariq MD MTDD
--- NOTE | 2017-06-07 00:06 | PN ---
DATE: 06/06/2017 PULMONARY PROGRESS NOTE REFERRING PHYSICIAN: Estelle Tariq MD SUBJECTIVE: She is lying in the bed, head at 45 degree. Night was unremarkable. No headache. No rhinitis. No nausea. No vomiting. No diarrhea. No leg pain or leg swelling. OBJECTIVE: GENERAL: In no acute distress. VITAL SIGNS: Temperature is 98, heart rate is 82, respiratory rate is 20, blood pressure is 103/70, pulse oximetry is 97% on room air. HEENT: Moist mucous membranes. No ulcer or thrush noted. NECK: Supple. No JVD. LUNGS: Has a fair airflow with rhonchi. HEART: S1 and S2. ABDOMEN: Soft and nontender. No organomegaly. EXTREMITIES: No edema. NEUROLOGIC: Awake, alert, and follows simple commands. MEDICATIONS: She is on ampicillin 2 g IV q. 6 hours, Claritin 10 mg daily, hydrocortisone 20 mg twice a day, Dilaudid 0.25 mg q. 6 hours p.r.n., DuoNeb q. 6 hour, Flonase 1 spray each nostril daily, folic acid 1 mg daily, potassium 20 mEq daily, Lasix 40 mg daily, Lipitor 40 mg daily, micafungin 100 mg daily, nasal saline two spray each nostril q. 6 hours, Pepcid 20 mg twice a day, Phenergan 12.5 mg 3 times a day p.r.n., Primacor IV drip, Tessalon Perles 100 mg 3 times a day, Tylenol p.r.n., vitamin D 1000 international unit daily, Xanax 0.25 mg 3 times a day p.r.n., and Zestril 2.5 mg daily. LABORATORY DATA: Shows no new lab is available. Blood culture done on 06/03/2017, so far no growth. IMPRESSION AND PLAN: Severe cardiomyopathy, Primacor dependent, sinusitis which is resolved, peripheral line related fungemia, also have enterococcus, systemic lupus erythematosus. Continue antibiotics, bronchodilator. Decrease Solu-Medrol to 20 mg daily and subsequently discontinue it, gastric prophylaxis. Thank you and we will follow with you. Roberto Mcarthur MD
[2017-06-07] MEDS: AMPicillin 2 GM in Sodium Chloride 0.9% 100 ML IVPB SCH ×6 (00:47→23:47)
[2017-06-07] MEDS: HYDROmorphone 0.5 mg/0.5 ml ISec IVP PRN ×3 (00:48→23:49)
[2017-06-07] MEDS: Albuterol-Ipratrop 3 mg / 0.5 (3 ml) UD IH SCH ×4 (01:08→19:51)
[2017-06-07] MEDS: Phenylephrine 10% Opht (5 ml) OU SCH ×2 (05:35→05:36)
[2017-06-07] MEDS ORDERED: Tropicamide 1% Opht SOLUTION OU SCH (06:00)
[2017-06-07 07:26] LABS: EOS # 0.1 (0.0-0.7); EOS % 1.8 % (1.5-5.0); GRAN # 5.34 (1.4-6.5); GRAN % 68.7 % (50.0-68.0); HEMOGLOBIN 11.2 g/dL (12.0-16.0); LYMPH # 1.6 (1.2-3.4); LYMPH % 20.2 % (22.0-35.0); MEAN CELL VOLUME 85.7 fl (80.0-105.0); MEAN CORPUSCULAR HEMOGLOBIN 25.9 pg (25.0-35.0); MEAN CORPUSCULAR HGB CONC 30.2 g/dl (31.0-37.0); MEAN PLATELET VOLUME 10.4 fl (7.0-11.0); MONO # 0.7 (0.1-0.6); MONO % 9.3 % (1.0-6.0); RBC 4.33 10^6/uL (3.5-6.1); RED CELL DISTRIBUTION WIDTH 15.8 % (11.5-14.5); WHITE BLOOD COUNT 7.8 10^3/ul (4.5-11.0)
[2017-06-07 07:34] LABS: INR 1.28 (0.93-1.08); PROTHROMBIN TIME 14.2 SECONDS (9.4-12.5)
[2017-06-07 07:51] LABS: ALBUMIN 3.4 g/dL (3.0-4.8); ALT/SGPT 28 U/L (7-56); AST/SGOT 24 U/L (14-36); BLOOD UREA NITROGEN 19 mg/dL (7-21); CALCIUM 8.6 mg/dL (8.4-10.5); GFR AFRICAN-AMERICAN > 60; GFR NON-AFRICAN AMERICAN > 60
[2017-06-07] MEDS: Potassium Chloride 20 mEq ER Tab PO SCH (08:27)
[2017-06-07] MEDS: Milrinone 20mg/100ml D5W 100 ML IV PRN ×2 (08:57→21:28)
[2017-06-07] MEDS: Fluticasone Nasal 50 mcg/Spray NS SCH (09:28)
[2017-06-07] MEDS: Micafungin 100 MG in Sodium Chloride 0.9% 100 ML IV SCH (09:28)
[2017-06-07] MEDS: Cholecalciferol 1,000 INTLU TAB PO SCH (09:30)
--- NOTE | 2017-06-07 09:50 | CON ---
DATE: HISTORY OF PRESENT ILLNESS: I was called to rule out fungemia. PHYSICAL EXAMINATION HEENT: Visual acuity was 20/20 with correction. Cornea exam is normal. Lens exam is normal. Fundus exam . Extraocular muscles exam is normal. ASSESSMENT: Ms. Siddiqui has an essentially normal exam with no evidence of fungemia. I told her to come see me in the office on discharge for routine eye exam. Jun Pop MD
--- NOTE | 2017-06-07 13:01 | CP.PCM.PN ---
Subjective - Date & Time of Evaluation Date of Evaluation: 06/07/17 Time of Evaluation: 10:50 - Subjective Subjective: Comfortable, no fevers. Objective - Vital Signs/Intake and Output Vital Signs (last 24 hours): Temp Pulse Resp BP Pulse Ox 97.7 F 76 20 100/69 99 06/06/17 16:30 06/07/17 09:29 06/07/17 08:19 06/07/17 09:30 06/07/17 08:19 Intake and Output: 06/07/17 06/07/17 06:59 18:59 Intake Total 1340 100 Balance 1340 100 - Medications Medications: Current Medications Acetaminophen (Tylenol 325mg Tab) 325 mg PO TID PRN PRN Reason: Pain, Mild (1-3) Last Admin: 06/06/17 12:18 Dose: 325 mg Albuterol/Ipratropium (Duoneb 3 Mg/0.5 Mg (3 Ml) Ud) 3 ml IH [id number] [facility] Last Admin: 06/07/17 07:40 Dose: Not Given Atorvastatin Calcium (Lipitor) 40 mg PO DIN [facility] Last Admin: 06/06/17 17:29 Dose: 40 mg Benzonatate (Tessalon Perles) 100 mg PO TID [facility] Last Admin: 06/07/17 09:29 Dose: 100 mg Cholecalciferol (Vitamin D) 1,000 intlu PO DAILY [facility] Last Admin: 06/07/17 09:30 Dose: 1,000 intlu Famotidine (Pepcid) 20 mg PO 1000,2200 [facility] Last Admin: 06/07/17 09:29 Dose: 20 mg Fluticasone Propionate (Flonase) 1 actuation NS DAILY [facility] Last Admin: 06/07/17 09:28 Dose: 1 actuation Folic Acid (Folic Acid) 1 mg PO DAILY [facility] Last Admin: 06/07/17 09:30 Dose: 1 mg Furosemide (Lasix) 40 mg IV DAILY [facility] Last Admin: 06/07/17 09:30 Dose: Not Given Hydrocortisone (Cortef) 20 mg PO DAILY [facility] Last Admin: 06/07/17 09:29 Dose: 20 mg Hydromorphone HCl (Dilaudid) 0.25 mg IVP Q6H PRN PRN Reason: Pain, severe (8-10) Last Admin: 06/07/17 00:48 Dose: 0.25 mg Milrinone Lactate/Dextrose (Primacor 20mg/100ml D5w) 100 mls @ 9.032 mls/hr IV .Q11H5M PRN; Protocol; 0.375 MCG/KG/MIN PRN Reason: TITRATE PER MD ORDER Last Admin: 06/07/17 08:57 Dose: 0.375 mcg/kg/min, 9.032 mls/hr Micafungin Sodium 100 mg/ (Sodium Chloride) 100 mls @ 100 mls/hr IV DAILY ANA LILIA PRN Reason: Protocol Stop: 06/30/17 10:01 Last Admin: 06/07/17 09:28 Dose: 100 mls/hr Ampicillin 2 gm/ Sodium (Chloride) 100 mls @ 200 mls/hr IVPB Q6 ANA LILIA PRN Reason: Protocol Stop: 07/03/17 12:01 Last Admin: 06/07/17 05:43 Dose: 200 mls/hr Lisinopril (Zestril) 2.5 mg PO DAILY [facility] Last Admin: 06/07/17 09:29 Dose: 2.5 mg Loratadine (Claritin) 10 mg PO DAILY [facility] Last Admin: 06/07/17 09:29 Dose: 10 mg Potassium Chloride (K-Dur 20 Meq Er Tab) 20 meq PO 0800 [facility] Last Admin: 06/07/17 08:27 Dose: 20 meq Promethazine HCl (Phenergan Syrup) 12.5 mg PO TID PRN PRN Reason: Cough Last Admin: 06/01/17 22:14 Dose: 12.5 mg Sodium Chloride ([place] Nasal [place]) 1 ml NS Q4 [facility] Last Admin: 06/07/17 08:33 Dose: Not Given - Labs Labs: 06/07/17 06:30 06/07/17 06:30 PT 14.2 SECONDS (9.4-12.5) H 06/07/17 06:30 INR 1.28 (0.93-1.08) H 06/07/17 06:30 APTT 49.7 Seconds (25.1-36.5) H 05/30/17 07:15 - Constitutional Appears: Chronically Ill - Head Exam Head Exam: NORMAL INSPECTION - Respiratory Exam Respiratory Exam: Decreased Breath Sounds - Cardiovascular Exam Cardiovascular Exam: +S1, +S2 - GI/Abdominal Exam GI & Abdominal Exam: Soft. absent: Tenderness Assessment and Plan - Assessment and Plan (Free Text) Plan: Assessment Sepsis due to C. parapsilosis and C. glabrata fungemia and Enterococcus bacteremia probably from PICC line, unable to rule out endocarditis history of Sepsis due to right breast cellulitis/mastitis with purulent discharge, growing Serratia history of bilateral breast mastitis growing coagulase negative Staph and Klebsiella pneumoniae history of vaginal candidiasis SLE history of pulmonary emboli CVA asthma S/P ICD placement Plan continue Ampicillin and mycamine (day 5 of at least 28 days); would recommend RANJEET but Cardio feels patient has short life span; will need weekly ESR, CRP, CBC , CMP while on antifungals and antibiotics Overall prognosis is poor
--- NOTE | 2017-06-07 13:44 | PN ---
DATE: 06/07/2017 REASON FOR CONSULTATION AND FOLLOWUP: Cardiomyopathy, status post AICD, history of nonischemic cardiomyopathy, admitted with flu-like symptoms, fungemia in the blood, repeat blood culture negative. SUBJECTIVE: The patient feels better. Denies any chest pain, shortness of breath, or any palpitation. OBJECTIVE: GENERAL: Not in apparent distress. VITAL SIGNS: As follows: Temperature afebrile, heart rate 72, and blood pressure 100/69. HEENT: PERRLA intact. NECK: Supple. No carotid bruits or thyromegaly. CHEST: Clear to auscultation. HEART: S1 and S2 regular. ABDOMEN: Soft. EXTREMITIES: Clubbing and cyanosis negative. LABORATORY DATA: Blood culture as follows dated 05/30/2017, showed Ashley parapsilosis, where as blood culture from 06/01/2017, shows ashley albicans, blood culture from 06/01/2017 also shows Ashley glabrata. With the repeat blood culture from 06/03/2017, is negative 4 days. Rest of blood workup as follows: WBC 7.8, hemoglobin 11.8, hematocrit 37.1, and platelet count 202. Chemistry shows sodium 142, potassium 3.9, chloride 105, carbon dioxide 27, anion gap of 30, and BUN 19. IMPRESSION AND PLAN: Multiple species of fungus grew in the blood including parapsilosis, Ashley albicans, and Ashley glabrata. Discussed in length with Dr. Snowden yesterday, though echocardiogram did not show any endocarditis. The repeat culture is negative, so we will try to treat medically because the patient is at high risk for removal of both pacemakers, the patient can on the table, so if the repeat blood culture is negative, plan is to treat the patient for 4 weeks of antifungal treatment. After holding the treatment, we will repeat the blood culture in 1 week, and if no recurrence, the patient will be treated. If the recurrence and no options left, but only to remove the automatic implantable cardioverter-defibrillator and pacemaker discussed with the patient. We will discuss, also convey this message to Dr. Kahn. The patient has nonischemic cardiomyopathy since 2003, first automatic implantable cardioverter-defibrillator was in 2003. Most recent ejection fraction shows 15% to 20%, while the patient was on Primacor, so real ejection fractions are around 10% or less. The patient has also history of endocarditis in the past and removal of automatic implantable cardioverter-defibrillator in the past and was on LifeVest later on and put pacemaker single chamber later on and supplemented by automatic implantable cardioverter-defibrillator and axillary. Overall, the patient's condition is critical. Long-term prognosis is extremely poor. Roberto Jones MD
--- NOTE | 2017-06-07 20:55 | PN ---
DATE: 06/07/2017 PULMONARY PROGRESS NOTE REFERRING PHYSICIAN: Estelle Tariq MD SUBJECTIVE: She is sitting side of the bed. Night was unremarkable. Getting IV antibiotics. No rhinitis. No cough. No nausea. No vomiting. No diarrhea. No leg pain or leg swelling. PHYSICAL EXAMINATION GENERAL: In no acute distress. VITAL SIGNS: Temperature is 98, heart rate is 73, respiratory rate is 20, blood pressure is 117/77 and pulse oximetry is 99% on room air. HEENT: Moist mucous membranes. No ulcer or thrush noted. NECK: Supple. No JVD. LUNGS: Has a fair airflow with rhonchi. HEART: S1 and S2. ABDOMEN: Soft and nontender. No organomegaly. EXTREMITIES: No edema. NEUROLOGIC: Awake, alert and follows simple commands. MEDICATIONS: She is on ampicillin 2 g IV q. 6 hours, Claritin 10 mg daily, hydrocortisone 20 mg daily, Dilaudid 0.25 mg q. 6 hours p.r.n., DuoNeb q. 6 hours, Flonase 1 spray each nostril daily, folic acid 1 mg daily, potassium supplement daily 20 mEq, Lipitor 40 mg daily, micafungin 100 mg daily, nasal saline one spray to each nostril q. 4 hours, Pepcid 20 mg twice a day, Phenergan 12.5 mg 3 times a day p.r.n., Primacor IV drip, Tessalon Perles 100 mg 3 times a day, Tylenol p.r.n. basis, vitamin D 1000 international unit daily and Zestril 2.5 mg daily. LABORATORY DATA: Hemoglobin 11.2, hematocrit 37.1, WBC is 7.8 and platelet count 202. INR 1.28. Sodium 142, potassium 3.9, chloride 105, bicarbonate 27, BUN 19, creatinine 0.7, glucose 107 and calcium 8.6. AST 24, ALT 28, alk phos is 65, albumin is 3.4. Microbiology: Blood cultures since 06/01/2017 positive for Ashley, but since 06/03/2017 cultures so far there is no growth. IMPRESSION AND PLAN: Severe cardiomyopathy, Primacor dependent, requiring peripherally inserted central catheter line, end up with line sepsis with fungemia and bacteremia. Pulmonary point of view, doing okay. Continue bronchodilator, keep head at 45 degrees, also have systemic lupus erythematosus, try to discontinue steroids if we can. Thank you and we will follow with you. Roberto Mcarthur MD
--- NOTE | 2017-06-08 00:24 | PN ---
DATE: SUBJECTIVE: The patient is a 51-year-old female. The patient is seen and examined at the bedside, looking comfortable. No nausea, vomiting, or diarrhea. No hematemesis or hematochezia. No swelling of the legs. No chest pain. No palpitations. No headache or dizziness. Night was unremarkable. Boyfriend was sitting on the bedside. The patient asked many questions, I answered and tomorrow the patient is going for PICC line placement. She is very hard to get i/v line and she need two IV lines, one for antibiotics and other for her daily drip of Primacor IV. PHYSICAL EXAMINATION: VITAL SIGNS: Temperature 98, heart rate 73, respiratory rate 20, blood pressure 117/77, and pulse oximetry 99% on room air. HEENT: Head; normocephalic and atraumatic. Eyes; PERRLA. Extraocular muscles intact. Conjunctivae clear. Nose patent. NECK: Supple. No carotid bruits. No JVD or thyromegaly. CHEST: Bilaterally symmetrical. HEART: S1 and S2 positive. LUNGS: Has fair airflow with few rhonchi. ABDOMEN: Soft and nontender. No organomegaly. EXTREMITIES: No edema. No cyanosis. NEUROLOGIC: Awake and alert. Moving all four extremities. No focal deficits. MEDICATIONS: Ampicillin, Claritin, hydrocortisone, Dilaudid, DuoNeb, Flonase, potassium, Lipitor, micafungin, Pepcid, Phenergan, Primacor drip, Tessalon Perles, Tylenol, vitamin D, and Zestril. LABORATORY DATA: Hemoglobin 11.2, hematocrit 37.1, white blood cell 7.8, and platelets 202. INR 1.28. Sodium 142, potassium 3.9, BUN 19, creatinine 0.7, and glucose 107. AST 24 and ALT 28. Blood culture was positive for Ashley. ASSESSMENT AND PLAN: Mrs. Stephanie Siddiqui has multiple medical problems, lupus, cardiomyopathy, is on Primacor drip, came with sepsis, looks like from central catheter has fungemia and bacteremia; getting bronchodilator; and getting antibiotics. pt had systemic lupus erythematosus, she is getting steroid for adrenal insufficiency . As per Dr. Mcarthur, we can discontinue the steroid if we can, but according to the patient, she is taking steroid 20 mg twice a day for long time at home for lupus, tomorrow going for PICC line, gastrointestinal and deep venous thrombosis prophylaxis, repeat labs, and we will follow. Estelle Tariq MD CHANELL
[2017-06-08] MEDS: Albuterol-Ipratrop 3 mg / 0.5 (3 ml) UD IH SCH ×4 (04:30→19:58)
[2017-06-08] MEDS: AMPicillin 2 GM in Sodium Chloride 0.9% 100 ML IVPB SCH ×4 (05:55→23:09)
[2017-06-08] MEDS: Milrinone 20mg/100ml D5W 100 ML IV PRN ×2 (08:43→17:12)
[2017-06-08] MEDS: Enoxaparin 40 mg Syringe SC SCH (09:49)
[2017-06-08] MEDS: Potassium Chloride 20 mEq ER Tab PO SCH (09:49)
[2017-06-08] MEDS: Cholecalciferol 1,000 INTLU TAB PO SCH (09:50)
[2017-06-08] MEDS: Micafungin 100 MG in Sodium Chloride 0.9% 100 ML IV SCH ×2 (09:52→10:00)
[2017-06-08] MEDS: Fluticasone Nasal 50 mcg/Spray NS SCH (11:12)
--- NOTE | 2017-06-08 12:49 | CP.PCM.DIS ---
Provider - Provider Date of Admission: 05/30/17 08:43 Attending physician: Estelle Tariq MD Primary care physician: Ilia Maxwell MD Diagnosis - Discharge Diagnosis (1) Fungemia Status: Acute (2) Shortness of breath Status: Acute (3) Cough Status: Acute (4) Antiphospholipid antibody syndrome Status: Acute (5) Hypercoagulopathy Status: Acute (6) Hyperkalemia Status: Acute (7) Hyperlipidemia Status: Acute (8) CHF exacerbation Status: Acute (9) Acute on chronic diastolic CHF (congestive heart failure) Status: Chronic (10) Viral syndrome Status: Acute (11) Sinusitis Status: Resolved Hospital Course - Lab Results Lab Results: Micro Results 06/03/17 05:30 Blood-Venous Blood Culture - Final NO GROWTH AFTER 5 DAYS 06/03/17 05:30 Blood-Venous Gram Stain - Final TEST NOT PERFORMED 06/03/17 05:10 Blood-Venous Blood Culture - Final NO GROWTH AFTER 5 DAYS 06/03/17 05:10 Blood-Venous Gram Stain - Final TEST NOT PERFORMED 06/01/17 14:44 Blood-Venous Blood Culture - Final Ashley Glabrata 06/01/17 14:44 Blood-Venous Gram Stain - Final 06/01/17 14:30 Blood-Venous Blood Culture - Final Ashley Glabrata 06/01/17 14:30 Blood-Venous Gram Stain - Final 06/01/17 14:20 Catheter Tip Catheter Tip Culture - Final Enterococcus Faecalis Ashley Albicans 05/30/17 12:35 Blood Blood Culture - Final NO GROWTH AFTER 5 DAYS 05/30/17 12:35 Blood Gram Stain - Final TEST NOT PERFORMED 05/30/17 12:25 Blood Blood Culture - Final Ashley Parapsilosis 05/30/17 12:25 Blood Gram Stain - Final 05/30/17 15:55 Sputum Gram Stain - Final 05/30/17 15:55 Sputum Sputum Culture - Final Klebsiella Pneumoniae Ssp Pneu Citrobacter Amalonaticus 05/30/17 Unknown Urine,Clean Catch Urine Culture - Final 10-50,000 CFU/ML. MULTIPLE SPECIES. PROBABLE CONTAMINATION. Most Recent Lab Values WBC 7.8 10^3/ul (4.5-11.0) 06/07/17 06:30 RBC 4.33 10^6/uL (3.5-6.1) 06/07/17 06:30 Hgb 11.2 g/dL (12.0-16.0) L 06/07/17 06:30 Hct 37.1 % (36.0-48.0) 06/07/17 06:30 MCV 85.7 fl (80.0-105.0) 06/07/17 06:30 MCH 25.9 pg (25.0-35.0) 06/07/17 06:30 MCHC 30.2 g/dl (31.0-37.0) L 06/07/17 06:30 RDW 15.8 % (11.5-14.5) H 06/07/17 06:30 Plt Count 202 10^3/uL (120.0-450.0) 06/07/17 06:30 MPV 10.4 fl (7.0-11.0) 06/07/17 06:30 Gran % 68.7 % (50.0-68.0) H 06/07/17 06:30 Lymph % (Auto) 20.2 % (22.0-35.0) L 06/07/17 06:30 [place] % (Auto) 9.3 % (1.0-6.0) H 06/07/17 06:30 Eos % (Auto) 1.8 % (1.5-5.0) 06/07/17 06:30 Baso % (Auto) 0.0 % (0.0-3.0) 06/07/17 06:30 Gran # 5.34 (1.4-6.5) 06/07/17 06:30 Lymph # 1.6 (1.2-3.4) 06/07/17 06:30 [place] # 0.7 (0.1-0.6) H 06/07/17 06:30 Eos # 0.1 (0.0-0.7) 06/07/17 06:30 Baso # 0.00 K/mm3 (0.0-2.0) 06/07/17 06:30 Neutrophils % (Manual) 91 % (50.0-70.0) H 06/01/17 07:30 Lymphocytes % (Manual) 7 % (22.0-35.0) L 06/01/17 07:30 Monocytes % (Manual) 2 % (1.0-6.0) 06/01/17 07:30 Platelet Evaluation Normal (NORMAL) 06/01/17 07:30 PT 14.2 SECONDS (9.4-12.5) H 06/07/17 06:30 INR 1.28 (0.93-1.08) H 06/07/17 06:30 APTT 49.7 Seconds (25.1-36.5) H 05/30/17 07:15 Sodium 142 mmol/L (132-148) 06/07/17 06:30 Potassium 3.9 mmol/L (3.6-5.0) 06/07/17 06:30 Chloride 105 mmol/L (98-107) 06/07/17 06:30 Carbon Dioxide 27 mmol/L (21-33) 06/07/17 06:30 Anion Gap 13 (10-20) 06/07/17 06:30 BUN 19 mg/dL (7-21) 06/07/17 06:30 Creatinine 0.7 mg/dl (0.7-1.2) 06/07/17 06:30 Est GFR ( Amer) > 60 06/07/17 06:30 Est GFR (Non-Af Amer) > 60 06/07/17 06:30 POC Glucose (mg/dL) 131 mg/dL (65-110) H 05/30/17 16:35 Random Glucose 107 mg/dL (70-110) 06/07/17 06:30 Hemoglobin A1c 6.2 % (4.2-6.5) 05/30/17 07:30 Calcium 8.6 mg/dL (8.4-10.5) 06/07/17 06:30 Phosphorus 3.6 mg/dL (2.5-4.5) 06/02/17 06:00 Magnesium 2.1 mg/dL (1.7-2.2) 06/02/17 06:00 Iron 53 ug/dL (45-180) 05/30/17 07:30 TIBC 281 ug/dL (265-497) 05/30/17 07:30 % Saturation 19 % (20-55) L 05/30/17 07:30 Total Bilirubin 0.3 mg/dL (0.2-1.3) 06/07/17 06:30 AST 24 U/L (14-36) 06/07/17 06:30 ALT 28 U/L (7-56) 06/07/17 06:30 Alkaline Phosphatase 65 U/L (38-126) 06/07/17 06:30 Lactate Dehydrogenase 563 U/L (333-699) 05/30/17 07:15 Total Creatine Kinase 106 U/L (35-230) 05/30/17 07:15 Troponin I 0.02 ng/mL D 05/30/17 07:15 NT-Pro-B Natriuret Pep 1900 pg/mL (0-450) H 05/30/17 07:15 Total Protein 6.9 g/dL (5.8-8.3) 06/07/17 06:30 Albumin 3.4 g/dL (3.0-4.8) 06/07/17 06:30 Globulin 3.4 gm/dL 06/07/17 06:30 Albumin/Globulin Ratio 1.0 (1.1-1.8) L 06/07/17 06:30 Triglycerides 90 mg/dL (35-160) 05/30/17 07:30 Cholesterol 232 mg/dL (130-200) H 05/30/17 07:30 LDL Cholesterol Direct 163 mg/dL (0-129) H 05/30/17 07:30 HDL Cholesterol 42 mg/dL (29-60) 05/30/17 07:30 Vitamin B12 528 pg/mL (239-931) 05/30/17 07:30 Folate > 20.0 ng/mL 05/30/17 07:30 Procalcitonin 0.15 NG/ML (0.19-0.49) L 05/30/17 12:25 TSH 3rd Generation 0.04 mIU/mL (0.46-4.68) L 05/31/17 06:45 Urine Color Yellow (YELLOW) 05/30/17 07:15 Urine Appearance Cloudy (CLEAR) 05/30/17 07:15 Urine pH 6.0 (4.7-8.0) 05/30/17 07:15 Ur Specific [place] 1.025 (1.005-1.035) 05/30/17 07:15 Urine Protein Trace mg/dL (<30 mg/dL) H 05/30/17 07:15 Urine Glucose (UA) Negative mg/dL (NEGATIVE) 05/30/17 07:15 Urine Ketones Negative mg/dL (NEGATIVE) 05/30/17 07:15 Urine Blood Large (NEGATIVE) H 05/30/17 07:15 Urine Nitrate Negative (NEGATIVE) 05/30/17 07:15 Urine Bilirubin Negative (NEGATIVE) 05/30/17 07:15 Urine Urobilinogen 0.2 E.U./dL (<1 E.U./dL) 05/30/17 07:15 Ur Leukocyte Esterase Trace Jay[place]/uL (NEGATIVE) H 05/30/17 07:15 Urine RBC 2 - 5 /hpf (0-2) 05/30/17 07:15 Urine WBC 2 - 5 /hpf (0-6) 05/30/17 07:15 Ur Epithelial Cells 6 - 8 /hpf (0-5) 05/30/17 07:15 Urine Bacteria Few (NEG) 05/30/17 07:15 Urine HCG, Qual Negative (NEGATIVE) 05/30/17 07:15 Complement C3 129.0 mg/dL (88.0-165.0) 05/30/17 12:25 Complement C4 35.3 mg/dL (14.0-44.0) 05/30/17 12:25 Influenza Typ A,B (EIA) Negative for flu a/b (NEGATIVE) 05/30/17 07:15 Influenza Type A Ab 1:16 titer (<1:8) H 05/31/17 06:45 Influenza Type B Ab <1:8 titer (<1:8) 05/31/17 06:45 Discharge Exam - Head Exam Head Exam: NORMAL INSPECTION Discharge Plan - Follow Up Plan Condition: STABLE Disposition: HOME/ ROUTINE Referrals: Ilia Maxwell MD [Primary Care Provider] -
--- NOTE | 2017-06-08 16:32 | CP.PCM.PN ---
Subjective - Date & Time of Evaluation Date of Evaluation: 06/08/17 Time of Evaluation: 10:50 - Subjective Subjective: Patient wants to go home, no fevers overnight, no SOB, no diarrhea. Objective - Vital Signs/Intake and Output Vital Signs (last 24 hours): Temp Pulse Resp BP Pulse Ox 97.3 F L 72 20 100/52 L 96 06/07/17 16:00 06/07/17 16:00 06/07/17 16:00 06/07/17 16:00 06/07/17 16:00 Intake and Output: 06/08/17 06/08/17 06:59 18:59 Intake Total 780 100 Balance 780 100 - Medications Medications: Current Medications Acetaminophen (Tylenol 325mg Tab) 325 mg PO TID PRN PRN Reason: Pain, Mild (1-3) Last Admin: 06/06/17 12:18 Dose: 325 mg Albuterol/Ipratropium (Duoneb 3 Mg/0.5 Mg (3 Ml) Ud) 3 ml IH [id number] [facility] Last Admin: 06/08/17 08:31 Dose: Not Given Atorvastatin Calcium (Lipitor) 40 mg PO DIN [facility] Last Admin: 06/07/17 17:43 Dose: 40 mg Benzonatate (Tessalon Perles) 100 mg PO TID [facility] Last Admin: 06/07/17 17:43 Dose: 100 mg Cholecalciferol (Vitamin D) 1,000 intlu PO DAILY [facility] Last Admin: 06/07/17 09:30 Dose: 1,000 intlu Enoxaparin Sodium (Lovenox) 40 mg SC DAILY [facility] PRN Reason: Protocol Famotidine (Pepcid) 20 mg PO 1000,2200 [facility] Last Admin: 06/07/17 21:27 Dose: 20 mg Fluticasone Propionate (Flonase) 1 actuation NS DAILY [facility] Last Admin: 06/07/17 09:28 Dose: 1 actuation Folic Acid (Folic Acid) 1 mg PO DAILY [facility] Last Admin: 06/07/17 09:30 Dose: 1 mg Furosemide (Lasix) 40 mg IV DAILY [facility] Last Admin: 06/07/17 12:07 Dose: 40 mg Hydrocortisone (Cortef) 20 mg PO BID [facility] Last Admin: 06/07/17 18:39 Dose: 20 mg Hydromorphone HCl (Dilaudid) 0.25 mg IVP Q6H PRN PRN Reason: Pain, severe (8-10) Last Admin: 06/07/17 23:49 Dose: 0.25 mg Milrinone Lactate/Dextrose (Primacor 20mg/100ml D5w) 100 mls @ 9.032 mls/hr IV .Q11H5M PRN; Protocol; 0.375 MCG/KG/MIN PRN Reason: TITRATE PER MD ORDER Last Admin: 06/08/17 08:43 Dose: 0.375 mcg/kg/min, 9.032 mls/hr Micafungin Sodium 100 mg/ (Sodium Chloride) 100 mls @ 100 mls/hr IV DAILY [facility]IA PRN Reason: Protocol Stop: 06/30/17 10:01 Last Admin: 06/07/17 09:28 Dose: 100 mls/hr Ampicillin 2 gm/ Sodium (Chloride) 100 mls @ 200 mls/hr IVPB Q6 [facility]IA PRN Reason: Protocol Stop: 07/03/17 12:01 Last Admin: 06/08/17 05:55 Dose: 200 mls/hr Lisinopril (Zestril) 2.5 mg PO DAILY [facility] Last Admin: 06/07/17 09:29 Dose: 2.5 mg Loratadine (Claritin) 10 mg PO DAILY [facility] Last Admin: 06/07/17 09:29 Dose: 10 mg Potassium Chloride (K-Dur 20 Meq Er Tab) 20 meq PO 0800 [facility] Last Admin: 06/07/17 08:27 Dose: 20 meq Promethazine HCl (Phenergan Syrup) 12.5 mg PO TID PRN PRN Reason: Cough Last Admin: 06/01/17 22:14 Dose: 12.5 mg Sodium Chloride ([address] Nasal [place]) 1 ml NS Q4 [facility] Last Admin: 06/08/17 05:14 Dose: Not Given - Labs Labs: 06/07/17 06:30 06/07/17 06:30 PT 14.2 SECONDS (9.4-12.5) H 06/07/17 06:30 INR 1.28 (0.93-1.08) H 06/07/17 06:30 APTT 49.7 Seconds (25.1-36.5) H 05/30/17 07:15 - Constitutional Appears: Non-toxic, Chronically Ill - Head Exam Head Exam: NORMAL INSPECTION - ENT Exam ENT Exam: Mucous Membranes Moist - Neck Exam Neck Exam: absent: Meningismus - Respiratory Exam Respiratory Exam: Decreased Breath Sounds - Cardiovascular Exam Cardiovascular Exam: +S1, +S2 - GI/Abdominal Exam GI & Abdominal Exam: Soft. absent: Tenderness Assessment and Plan - Assessment and Plan (Free Text) Plan: Assessment Sepsis due to C. parapsilosis and C. glabrata fungemia and Enterococcus bacteremia probably from PICC line, unable to rule out endocarditis history of Sepsis due to right breast cellulitis/mastitis with purulent discharge, growing Serratia history of bilateral breast mastitis growing coagulase negative Staph and Klebsiella pneumoniae history of vaginal candidiasis SLE history of pulmonary emboli CVA asthma S/P ICD placement Plan continue Ampicillin and mycamine (day 6 of at least 28 days); would recommend RANJEET but Cardio feels patient has short life span; will need weekly ESR, CRP, CBC , CMP while on antifungals and antibiotics Overall prognosis is poor
[2017-06-08] MEDS: HYDROmorphone 0.5 mg/0.5 ml ISec IVP PRN (17:57)
--- NOTE | 2017-06-08 21:40 | PN ---
DATE: 06/08/2017 REASON FOR CONSULTATION AND FOLLOWUP: Cardiomyopathy, status post AICD, history of nonischemic cardiomyopathy, admitted with flu-like symptoms, fungemia in the blood, and repeat blood culture is negative. SUBJECTIVE: The patient denies any chest pain, shortness of breath, or any palpitation. OBJECTIVE: GENERAL: Not in apparent distress. VITAL SIGNS: Temperature afebrile, heart rate 70, and blood pressure 101/67. HEENT: PERRLA. Extraocular muscles are intact. NECK: Supple. No carotid bruits or thyromegaly. CHEST: Clear to auscultation. HEART: S1 and S2 regular. ABDOMEN: Soft. EXTREMITIES: Clubbing and cyanosis negative. LABORATORY DATA: Blood workup as follows; WBC 7.8, hemoglobin 11.8, hematocrit 37.1, and platelet count 202. Chemistry shows sodium 142, potassium 3.9, chloride 105, carbon dioxide 27, anion gap of 13, and BUN 19, creatinine 0.9, total protein 6.9, albumin 3.4, and albumin-globulin ratio 1.0. IMPRESSION AND PLAN: Nonischemic cardiomyopathy, status post automated implantable cardioverter-defibrillator, severely decreased left ventricular function, on home Primacor, admitted with flu-like symptoms, blood culture grew three different species of fungus including parapsilosis, Ashley albicans, and Ashley glabrata. Discussed at length with Dr. Snowden, issue was raised about transesophageal echocardiography, though regular echocardiogram did not show any endocarditis. My point was that since the patient has a defibrillator and pacemaker definitely had fibrin thread. The result of that how we can interpret that is a negative or positive, if the culture is positive then thread will be considered a fungal and needs a very extensive procedure to remove both defibrillator hardware, it will be a very dangerous procedure, but if the cultures remains negative then that is a fibrin thread, so based on clinical judgement as the patient is improving suggested to continue four weeks of antifungal treatment and since the repeat blood culture from , which I did is negative persistently up to five days of no growth noted. Culture was done on 06/03/2017 and mention the fungus earlier was dated 05/30/2017, 05/30/2017 and 06/01/2017, which shows three different species of fungus, but later on since 06/03/2017, blood cultures are negative and the regulate was negative, the patient is improving, so we will treat it medically for four weeks of antibiotic, antifungal and is going to be completed on 28 day and then after a week stop this antibiotic, we will repeat the blood culture. If blood culture is negative, will be done, but if the blood culture is positive, then at that point we need to remove the hardware including pacemaker and defibrillator. The patient has initially pacemaker was in 2007 and then subsequently recently the patient had a pacemaker generator change. Recently, the patient had infection of the pacemaker, so pacemaker and defibrillator was removed. The patient remain on LifeVest and then a single-chamber VVI was placed in the left subclavian area and later on subaxillary area, defibrillator was placed. The patient is being followed by Dr. 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 He agreed with the planning that continue antibiotic for four weeks and he will follow the result after a week holding the antibiotic. Discussed with Dr. Kahn at length and telephone number . Also, we will discuss with Dr. Tariq, primary care physician and also discussed with Dr. Snowden two days ago. I explained the above situation to the patient, so the patient will get the PICC line and once arrangement has been made for the home Primacor and home antibiotic, the patient will be discharged. The patient has severely decreased left ventricular function, ejection fraction 15% to 20%, on Primacor, which means the patient is a very real low ejection fraction probably account for 10%, which also accounts as a group home and prognosis is very poor. Interim, continue the baseline medication as the blood pressure is tolerated including Lasix, diuretics. Lisinopril, and Coreg is on hold because of the low blood pressure. Upon discharge, the patient will be followed with Dr. Kahn. Thank you Dr. Tariq for providing us the opportunity in taking care of the patient, Stephanie Tamayotiana Siddiqui. Roberto Jones MD
--- NOTE | 2017-06-08 22:11 | CP.PCM.PN ---
<Sandee Caceres - Last Filed: 06/08/17 22:19> Subjective - Date & Time of Evaluation Date of Evaluation: 06/08/17 Time of Evaluation: 11:00 - Subjective Subjective: 51yr female w/ history of non-ischemic cardiomyopathy s/p AICD , [place] [address] Kahn, s/p endocarditis, on heart transplant list [place], patent foramen ovale, ASD, on LifeVest milirone drip @ home & coumadin, SLE, stroke, R sided weakness, Pulmonary embolism, Anxiety, depression & R breast cellulitis. She is feeling great today and ready for discharge home. She has newly inserted PICC through which IV anti-fungals and primacor drip which require home IV infusion nurse services. She understands that this may stall her discharge home. Denies any headaches, N/V, fevers, constipation, diarrhea, urinary changes or distress Objective - Vital Signs/Intake and Output Vital Signs (last 24 hours): Temp Pulse Resp BP Pulse Ox 99.4 F 85 20 103/65 96 06/08/17 16:00 06/08/17 17:12 06/08/17 16:00 06/08/17 17:12 06/08/17 16:00 Intake and Output: 06/08/17 06/09/17 18:59 06:59 Intake Total 800 Balance 800 - Medications Medications: Current Medications Acetaminophen (Tylenol 325mg Tab) 325 mg PO TID PRN PRN Reason: Pain, Mild (1-3) Last Admin: 06/08/17 14:51 Dose: 325 mg Albuterol/Ipratropium (Duoneb 3 Mg/0.5 Mg (3 Ml) Ud) 3 ml IH [id number] [facility] Last Admin: 06/08/17 19:58 Dose: 3 ml Atorvastatin Calcium (Lipitor) 40 mg PO DIN [facility] Last Admin: 06/08/17 16:47 Dose: 40 mg Benzonatate (Tessalon Perles) 100 mg PO TID [facility] Last Admin: 06/08/17 17:59 Dose: 100 mg Cholecalciferol (Vitamin D) 1,000 intlu PO DAILY [facility] Last Admin: 06/08/17 09:50 Dose: 1,000 intlu Enoxaparin Sodium (Lovenox) 40 mg SC DAILY [facility] PRN Reason: Protocol Last Admin: 06/08/17 09:49 Dose: 40 mg Famotidine (Pepcid) 20 mg PO 1000,2200 [facility] Last Admin: 06/08/17 21:24 Dose: 20 mg Fluticasone Propionate (Flonase) 1 actuation NS DAILY [facility] Last Admin: 06/08/17 11:12 Dose: 1 actuation Folic Acid (Folic Acid) 1 mg PO DAILY [facility] Last Admin: 06/08/17 09:50 Dose: 1 mg Furosemide (Lasix) 40 mg IV DAILY [facility] Last Admin: 06/08/17 09:47 Dose: 40 mg Hydrocortisone (Cortef) 20 mg PO BID [facility] Last Admin: 06/08/17 17:59 Dose: 20 mg Hydromorphone HCl (Dilaudid) 0.25 mg IVP Q6H PRN PRN Reason: Pain, severe (8-10) Last Admin: 06/08/17 17:57 Dose: 0.25 mg Milrinone Lactate/Dextrose (Primacor 20mg/100ml D5w) 100 mls @ 9.032 mls/hr IV .Q11H5M PRN; Protocol; 0.375 MCG/KG/MIN PRN Reason: TITRATE PER MD ORDER Last Admin: 06/08/17 17:12 Dose: 0.375 mcg/kg/min, 9.032 mls/hr Micafungin Sodium 100 mg/ (Sodium Chloride) 100 mls @ 100 mls/hr IV DAILY [facility] PRN Reason: Protocol Stop: 06/30/17 10:01 Last Admin: 06/08/17 10:00 Dose: Not Given Ampicillin 2 gm/ Sodium (Chloride) 100 mls @ 200 mls/hr IVPB Q6 [facility] PRN Reason: Protocol Stop: 07/03/17 12:01 Last Admin: 06/08/17 17:56 Dose: 200 mls/hr Lisinopril (Zestril) 2.5 mg PO DAILY [facility] Last Admin: 06/08/17 09:51 Dose: 2.5 mg Loratadine (Claritin) 10 mg PO DAILY [facility] Last Admin: 06/08/17 09:50 Dose: 10 mg Potassium Chloride (K-Dur 20 Meq Er Tab) 20 meq PO 0800 [facility] Last Admin: 06/08/17 09:49 Dose: 20 meq Promethazine HCl (Phenergan Syrup) 12.5 mg PO TID PRN PRN Reason: Cough Last Admin: 06/01/17 22:14 Dose: 12.5 mg Sodium Chloride ([place] Nasal [place]) 1 ml NS Q4 [facility] Last Admin: 06/08/17 21:24 Dose: Not Given - Labs Labs: 06/07/17 06:30 06/07/17 06:30 PT 14.2 SECONDS (9.4-12.5) H 06/07/17 06:30 INR 1.28 (0.93-1.08) H 06/07/17 06:30 APTT 49.7 Seconds (25.1-36.5) H 05/30/17 07:15 - Constitutional Appears: Well - Head Exam Head Exam: ATRAUMATIC, NORMAL INSPECTION, NORMOCEPHALIC - Eye Exam Eye Exam: EOMI, Normal appearance, PERRL - ENT Exam ENT Exam: Mucous Membranes Moist, Normal Exam - Neck Exam Neck Exam: Full ROM, Normal Inspection. absent: Lymphadenopathy - Respiratory Exam Respiratory Exam: Clear to Ausculation Bilateral, NORMAL BREATHING PATTERN - Cardiovascular Exam Cardiovascular Exam: +S1, +S2 - GI/Abdominal Exam GI & Abdominal Exam: Soft, Normal Bowel Sounds. absent: Tenderness - Extremities Exam Extremities Exam: Full ROM, Normal Capillary Refill, Normal Inspection. absent : Joint Swelling, Pedal Edema - Back Exam Back Exam: NORMAL INSPECTION - Neurological Exam Neurological Exam: Alert, Awake, CN II-XII Intact, Normal Gait, Oriented x3 - Psychiatric Exam Psychiatric exam: Normal Affect, Normal Mood - Skin Skin Exam: Dry, Intact, Normal Color, Warm Assessment and Plan (1) Fungemia Status: Acute (2) Shortness of breath Status: Acute (3) Cough Status: Acute (4) Antiphospholipid antibody syndrome Status: Acute (5) Hypercoagulopathy Status: Acute (6) Hyperkalemia Status: Acute (7) Hyperlipidemia Status: Acute (8) CHF exacerbation Status: Acute (9) Acute on chronic diastolic CHF (congestive heart failure) Status: Chronic (10) Viral syndrome Status: Acute (11) Sinusitis Status: Resolved (12) Lupus Status: Chronic - Assessment and Plan (Free Text) Plan: PICC line insertion today. 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 Continue monitoring of LFTs on Micafungin for Fungemia. Continue IV primacor and prescribed plan of care. Consults: Ophthalmology- Dr. Pop = no evidence of fungemia Pulmonary - = d/c steroids of possible, continue bronchodilator, keep INR 2.5 I.D. - Dr. Metz = Continue ampicillin & mycamine (day 5 of 28). Weekly labs: ESR, CRP, CBC, CMP while on antifungals and abx. Two pacemakers (Chest wall) & ( L flank), may be source of yeast infection. Cardio - Dr. Jones = Repeat cultures, if negative, treat medically x 4 weeks w. antifungals, then if reoccurrence, high risk for removal of both pacemakers, real EF 10% or less, long-term prognosis is extremely poor. [employer] - Dr. Bonilla = Reviewed: Blood culture = (+) Ashley parapsilosis CXR = (+) Pacemaker, WNL ECHO = LVEF 12.4%, systolic function EF 15-20%, AICD/PPM in RA/RV ECG = ABNORMAL: Accelerated junctional rhythm, L axis deviation, inferior infarct, prolonged QT <Estelle Tariq - Last Filed: 06/08/17 22:46> Objective - Vital Signs/Intake and Output Vital Signs (last 24 hours): Temp Pulse Resp BP Pulse Ox 99.4 F 85 20 103/65 96 06/08/17 16:00 06/08/17 17:12 06/08/17 16:00 06/08/17 17:12 06/08/17 16:00 Intake and Output: 06/08/17 06/09/17 18:59 06:59 Intake Total 800 540 Balance 800 540 - Medications Medications: Current Medications Acetaminophen (Tylenol 325mg Tab) 325 mg PO TID PRN PRN Reason: Pain, Mild (1-3) Last Admin: 06/08/17 14:51 Dose: 325 mg Albuterol/Ipratropium (Duoneb 3 Mg/0.5 Mg (3 Ml) Ud) 3 ml IH [id number] [facility] Last Admin: 06/08/17 19:58 Dose: 3 ml Atorvastatin Calcium (Lipitor) 40 mg PO DIN [facility] Last Admin: 06/08/17 16:47 Dose: 40 mg Benzonatate (Tessalon Perles) 100 mg PO TID [facility] Last Admin: 06/08/17 17:59 Dose: 100 mg Cholecalciferol (Vitamin D) 1,000 intlu PO DAILY [facility] Last Admin: 06/08/17 09:50 Dose: 1,000 intlu Enoxaparin Sodium (Lovenox) 40 mg SC DAILY [facility] PRN Reason: Protocol Last Admin: 06/08/17 09:49 Dose: 40 mg Famotidine (Pepcid) 20 mg PO 1000,2200 [facility] Last Admin: 06/08/17 21:24 Dose: 20 mg Fluticasone Propionate (Flonase) 1 actuation NS DAILY [facility] Last Admin: 06/08/17 11:12 Dose: 1 actuation Folic Acid (Folic Acid) 1 mg PO DAILY [facility] Last Admin: 06/08/17 09:50 Dose: 1 mg Furosemide (Lasix) 40 mg IV DAILY [facility] Last Admin: 06/08/17 09:47 Dose: 40 mg Hydrocortisone (Cortef) 20 mg PO BID [facility] Last Admin: 06/08/17 17:59 Dose: 20 mg Hydromorphone HCl (Dilaudid) 0.25 mg IVP Q6H PRN PRN Reason: Pain, severe (8-10) Last Admin: 06/08/17 17:57 Dose: 0.25 mg Milrinone Lactate/Dextrose (Primacor 20mg/100ml D5w) 100 mls @ 9.032 mls/hr IV .Q11H5M PRN; Protocol; 0.375 MCG/KG/MIN PRN Reason: TITRATE PER MD ORDER Last Admin: 06/08/17 17:12 Dose: 0.375 mcg/kg/min, 9.032 mls/hr Micafungin Sodium 100 mg/ (Sodium Chloride) 100 mls @ 100 mls/hr IV DAILY [facility] PRN Reason: Protocol Stop: 06/30/17 10:01 Last Admin: 06/08/17 10:00 Dose: Not Given Ampicillin 2 gm/ Sodium (Chloride) 100 mls @ 200 mls/hr IVPB Q6 [facility] PRN Reason: Protocol Stop: 07/03/17 12:01 Last Admin: 06/08/17 17:56 Dose: 200 mls/hr Lisinopril (Zestril) 2.5 mg PO DAILY [facility] Last Admin: 06/08/17 09:51 Dose: 2.5 mg Loratadine (Claritin) 10 mg PO DAILY [facility] Last Admin: 06/08/17 09:50 Dose: 10 mg Potassium Chloride (K-Dur 20 Meq Er Tab) 20 meq PO 0800 [facility] Last Admin: 06/08/17 09:49 Dose: 20 meq Promethazine HCl (Phenergan Syrup) 12.5 mg PO TID PRN PRN Reason: Cough Last Admin: 06/01/17 22:14 Dose: 12.5 mg Sodium Chloride ([place] Nasal [place]) 1 ml NS Q4 [facility] Last Admin: 06/08/17 21:24 Dose: Not Given - Labs Labs: 06/07/17 06:30 06/07/17 06:30 PT 14.2 SECONDS (9.4-12.5) H 06/07/17 06:30 INR 1.28 (0.93-1.08) H 06/07/17 06:30 APTT 49.7 Seconds (25.1-36.5) H 05/30/17 07:15 Assessment and Plan - Assessment and Plan (Free Text) Plan: 51yr female w/ history of non-ischemic cardiomyopathy s/p AICD , recent [place] [address] Kahn, s/p endocarditis, on heart transplant list [facility], patent foramen ovale, ASD, on LifeVest milirone drip @ home & coumadin, SLE, stroke, R sided weakness, Pulmonary embolism, Anxiety, depression & R breast cellulitis. She is feeling great today and ready for discharge home. She has newly inserted PICC through which IV anti-fungals and primacor drip which require home IV infusion nurse services. She understands that this may stall her discharge home. Denies any headaches, N/V, fevers, constipation, diarrhea, urinary changes or distress , pt is seen and examined at bed side , going for double lumen pick line , agreed all above , d/d with ns . carder blankets .and by her self
[2017-06-09] MEDS: HYDROmorphone 0.5 mg/0.5 ml ISec IVP PRN ×3 (00:01→18:02)
[2017-06-09] MEDS: Albuterol-Ipratrop 3 mg / 0.5 (3 ml) UD IH SCH ×4 (01:10→20:25)
[2017-06-09] MEDS: Milrinone 20mg/100ml D5W 100 ML IV PRN ×3 (03:51→23:40)
--- NOTE | 2017-06-09 04:01 | CP.PCM.PN ---
Subjective - Date & Time of Evaluation Date of Evaluation: 06/09/17 Time of Evaluation: 04:00 - Subjective Subjective: Patient was seen for both legs pain. As per her nurse , she is on dilaudid which is not due until 6AM . And she requests something for pain little stronger than tylenol which has been ordered for pain. She has no other complaints now. Medical record was reviewed. 51 year old woman was admitted with flu like syndrome. Has PMH of Lupus, CMP, CHF, HTN, asthma, CVA, breast hematoma, anxiety , depression, panic attacks, is on milrinone. Objective - Vital Signs/Intake and Output Vital Signs (last 24 hours): Temp Pulse Resp BP Pulse Ox 97.7 F 75 20 113/74 94 L 06/09/17 00:00 06/09/17 00:00 06/09/17 00:00 06/09/17 00:00 06/09/17 00:00 Intake and Output: 06/08/17 06/09/17 18:59 06:59 Intake Total 800 640 Balance 800 640 - Medications Medications: Current Medications Acetaminophen (Tylenol 325mg Tab) 325 mg PO TID PRN PRN Reason: Pain, Mild (1-3) Last Admin: 06/08/17 14:51 Dose: 325 mg Albuterol/Ipratropium (Duoneb 3 Mg/0.5 Mg (3 Ml) Ud) 3 ml IH [id number] [facility] Last Admin: 06/09/17 01:10 Dose: 3 ml Atorvastatin Calcium (Lipitor) 40 mg PO DIN [facility] Last Admin: 06/08/17 16:47 Dose: 40 mg Benzonatate (Tessalon Perles) 100 mg PO TID [facility] Last Admin: 06/08/17 17:59 Dose: 100 mg Cholecalciferol (Vitamin D) 1,000 intlu PO DAILY [facility] Last Admin: 06/08/17 09:50 Dose: 1,000 intlu Enoxaparin Sodium (Lovenox) 40 mg SC DAILY [facility] PRN Reason: Protocol Last Admin: 06/08/17 09:49 Dose: 40 mg Famotidine (Pepcid) 20 mg PO 1000,2200 [facility] Last Admin: 06/08/17 21:24 Dose: 20 mg Fluticasone Propionate (Flonase) 1 actuation NS DAILY [facility] Last Admin: 06/08/17 11:12 Dose: 1 actuation Folic Acid (Folic Acid) 1 mg PO DAILY [facility] Last Admin: 06/08/17 09:50 Dose: 1 mg Furosemide (Lasix) 40 mg IV DAILY [facility] Last Admin: 06/08/17 09:47 Dose: 40 mg Hydrocortisone (Cortef) 20 mg PO BID [facility] Last Admin: 06/08/17 17:59 Dose: 20 mg Hydromorphone HCl (Dilaudid) 0.25 mg IVP Q6H PRN PRN Reason: Pain, severe (8-10) Last Admin: 06/09/17 00:01 Dose: 0.25 mg Milrinone Lactate/Dextrose (Primacor 20mg/100ml D5w) 100 mls @ 9.032 mls/hr IV .Q11H5M PRN; Protocol; 0.375 MCG/KG/MIN PRN Reason: TITRATE PER MD ORDER Last Admin: 06/09/17 03:51 Dose: 0.375 mcg/kg/min, 9.032 mls/hr Micafungin Sodium 100 mg/ (Sodium Chloride) 100 mls @ 100 mls/hr IV DAILY [facility] PRN Reason: Protocol Stop: 06/30/17 10:01 Last Admin: 06/08/17 10:00 Dose: Not Given Ampicillin 2 gm/ Sodium (Chloride) 100 mls @ 200 mls/hr IVPB Q6 [facility] PRN Reason: Protocol Stop: 07/03/17 12:01 Last Admin: 06/08/17 23:09 Dose: 200 mls/hr Lisinopril (Zestril) 2.5 mg PO DAILY [facility] Last Admin: 06/08/17 09:51 Dose: 2.5 mg Loratadine (Claritin) 10 mg PO DAILY [facility] Last Admin: 06/08/17 09:50 Dose: 10 mg Potassium Chloride (K-Dur 20 Meq Er Tab) 20 meq PO 0800 [facility] Last Admin: 06/08/17 09:49 Dose: 20 meq Promethazine HCl (Phenergan Syrup) 12.5 mg PO TID PRN PRN Reason: Cough Last Admin: 06/01/17 22:14 Dose: 12.5 mg Sodium Chloride ([place] Nasal [place]) 1 ml NS Q4 [facility] Last Admin: 06/09/17 03:56 Dose: Not Given - Labs Labs: 06/07/17 06:30 06/07/17 06:30 PT 14.2 SECONDS (9.4-12.5) H 06/07/17 06:30 INR 1.28 (0.93-1.08) H 06/07/17 06:30 APTT 49.7 Seconds (25.1-36.5) H 05/30/17 07:15 Micro Results 06/03/17 05:30 Blood-Venous Blood Culture - Final NO GROWTH AFTER 5 DAYS 06/03/17 05:30 Blood-Venous Gram Stain - Final TEST NOT PERFORMED 06/03/17 05:10 Blood-Venous Blood Culture - Final NO GROWTH AFTER 5 DAYS 06/03/17 05:10 Blood-Venous Gram Stain - Final TEST NOT PERFORMED 06/01/17 14:44 Blood-Venous Blood Culture - Final Ashley Glabrata 06/01/17 14:44 Blood-Venous Gram Stain - Final 06/01/17 14:30 Blood-Venous Blood Culture - Final Ashley Glabrata 06/01/17 14:30 Blood-Venous Gram Stain - Final 06/01/17 14:20 Catheter Tip Catheter Tip Culture - Final Enterococcus Faecalis Ashley Albicans 05/30/17 12:35 Blood Blood Culture - Final NO GROWTH AFTER 5 DAYS 05/30/17 12:35 Blood Gram Stain - Final TEST NOT PERFORMED 05/30/17 12:25 Blood Blood Culture - Final Ashley Parapsilosis 05/30/17 12:25 Blood Gram Stain - Final 05/30/17 15:55 Sputum Gram Stain - Final 05/30/17 15:55 Sputum Sputum Culture - Final Klebsiella Pneumoniae Ssp Pneu Citrobacter Amalonaticus 05/30/17 Unknown Urine,Clean Catch Urine Culture - Final 10-50,000 CFU/ML. MULTIPLE SPECIES. PROBABLE CONTAMINATION. Most Recent Lab Values WBC 7.8 10^3/ul (4.5-11.0) 06/07/17 06:30 RBC 4.33 10^6/uL (3.5-6.1) 06/07/17 06:30 Hgb 11.2 g/dL (12.0-16.0) L 06/07/17 06:30 Hct 37.1 % (36.0-48.0) 06/07/17 06:30 MCV 85.7 fl (80.0-105.0) 06/07/17 06:30 MCH 25.9 pg (25.0-35.0) 06/07/17 06:30 MCHC 30.2 g/dl (31.0-37.0) L 06/07/17 06:30 RDW 15.8 % (11.5-14.5) H 06/07/17 06:30 Plt Count 202 10^3/uL (120.0-450.0) 06/07/17 06:30 MPV 10.4 fl (7.0-11.0) 06/07/17 06:30 Gran % 68.7 % (50.0-68.0) H 06/07/17 06:30 Lymph % (Auto) 20.2 % (22.0-35.0) L 06/07/17 06:30 [place] % (Auto) 9.3 % (1.0-6.0) H 06/07/17 06:30 Eos % (Auto) 1.8 % (1.5-5.0) 06/07/17 06:30 Baso % (Auto) 0.0 % (0.0-3.0) 06/07/17 06:30 Gran # 5.34 (1.4-6.5) 06/07/17 06:30 Lymph # 1.6 (1.2-3.4) 06/07/17 06:30 [place] # 0.7 (0.1-0.6) H 06/07/17 06:30 Eos # 0.1 (0.0-0.7) 06/07/17 06:30 Baso # 0.00 K/mm3 (0.0-2.0) 06/07/17 06:30 Neutrophils % (Manual) 91 % (50.0-70.0) H 06/01/17 07:30 Lymphocytes % (Manual) 7 % (22.0-35.0) L 06/01/17 07:30 Monocytes % (Manual) 2 % (1.0-6.0) 06/01/17 07:30 Platelet Evaluation Normal (NORMAL) 06/01/17 07:30 PT 14.2 SECONDS (9.4-12.5) H 06/07/17 06:30 INR 1.28 (0.93-1.08) H 06/07/17 06:30 APTT 49.7 Seconds (25.1-36.5) H 05/30/17 07:15 Sodium 142 mmol/L (132-148) 06/07/17 06:30 Potassium 3.9 mmol/L (3.6-5.0) 06/07/17 06:30 Chloride 105 mmol/L (98-107) 06/07/17 06:30 Carbon Dioxide 27 mmol/L (21-33) 06/07/17 06:30 Anion Gap 13 (10-20) 06/07/17 06:30 BUN 19 mg/dL (7-21) 06/07/17 06:30 Creatinine 0.7 mg/dl (0.7-1.2) 06/07/17 06:30 Est GFR ( Amer) > 60 06/07/17 06:30 Est GFR (Non-Af Amer) > 60 06/07/17 06:30 POC Glucose (mg/dL) 131 mg/dL (65-110) H 05/30/17 16:35 Random Glucose 107 mg/dL (70-110) 06/07/17 06:30 Hemoglobin A1c 6.2 % (4.2-6.5) 05/30/17 07:30 Calcium 8.6 mg/dL (8.4-10.5) 06/07/17 06:30 Phosphorus 3.6 mg/dL (2.5-4.5) 06/02/17 06:00 Magnesium 2.1 mg/dL (1.7-2.2) 06/02/17 06:00 Iron 53 ug/dL (45-180) 05/30/17 07:30 TIBC 281 ug/dL (265-497) 05/30/17 07:30 % Saturation 19 % (20-55) L 05/30/17 07:30 Total Bilirubin 0.3 mg/dL (0.2-1.3) 06/07/17 06:30 AST 24 U/L (14-36) 06/07/17 06:30 ALT 28 U/L (7-56) 06/07/17 06:30 Alkaline Phosphatase 65 U/L (38-126) 06/07/17 06:30 Lactate Dehydrogenase 563 U/L (333-699) 05/30/17 07:15 Total Creatine Kinase 106 U/L (35-230) 05/30/17 07:15 Troponin I 0.02 ng/mL D 05/30/17 07:15 NT-Pro-B Natriuret Pep 1900 pg/mL (0-450) H 05/30/17 07:15 Total Protein 6.9 g/dL (5.8-8.3) 06/07/17 06:30 Albumin 3.4 g/dL (3.0-4.8) 06/07/17 06:30 Globulin 3.4 gm/dL 06/07/17 06:30 Albumin/Globulin Ratio 1.0 (1.1-1.8) L 06/07/17 06:30 Triglycerides 90 mg/dL (35-160) 05/30/17 07:30 Cholesterol 232 mg/dL (130-200) H 05/30/17 07:30 LDL Cholesterol Direct 163 mg/dL (0-129) H 05/30/17 07:30 HDL Cholesterol 42 mg/dL (29-60) 05/30/17 07:30 Vitamin B12 528 pg/mL (239-931) 05/30/17 07:30 Folate > 20.0 ng/mL 05/30/17 07:30 Procalcitonin 0.15 NG/ML (0.19-0.49) L 05/30/17 12:25 TSH 3rd Generation 0.04 mIU/mL (0.46-4.68) L 05/31/17 06:45 Urine Color Yellow (YELLOW) 05/30/17 07:15 Urine Appearance Cloudy (CLEAR) 05/30/17 07:15 Urine pH 6.0 (4.7-8.0) 05/30/17 07:15 Ur Specific [place] 1.025 (1.005-1.035) 05/30/17 07:15 Urine Protein Trace mg/dL (<30 mg/dL) H 05/30/17 07:15 Urine Glucose (UA) Negative mg/dL (NEGATIVE) 05/30/17 07:15 Urine Ketones Negative mg/dL (NEGATIVE) 05/30/17 07:15 Urine Blood Large (NEGATIVE) H 05/30/17 07:15 Urine Nitrate Negative (NEGATIVE) 05/30/17 07:15 Urine Bilirubin Negative (NEGATIVE) 05/30/17 07:15 Urine Urobilinogen 0.2 E.U./dL (<1 E.U./dL) 05/30/17 07:15 Ur Leukocyte Esterase Trace [place]/uL (NEGATIVE) H 05/30/17 07:15 Urine RBC 2 - 5 /hpf (0-2) 05/30/17 07:15 Urine WBC 2 - 5 /hpf (0-6) 05/30/17 07:15 Ur Epithelial Cells 6 - 8 /hpf (0-5) 05/30/17 07:15 Urine Bacteria Few (NEG) 05/30/17 07:15 Urine HCG, Qual Negative (NEGATIVE) 05/30/17 07:15 Complement C3 129.0 mg/dL (88.0-165.0) 05/30/17 12:25 Complement C4 35.3 mg/dL (14.0-44.0) 05/30/17 12:25 Influenza Typ A,B (EIA) Negative for flu a/b (NEGATIVE) 05/30/17 07:15 Influenza Type A Ab 1:16 titer (<1:8) H 05/31/17 06:45 Influenza Type B Ab <1:8 titer (<1:8) 05/31/17 06:45 - Constitutional Appears: Well, No Acute Distress - Head Exam Head Exam: ATRAUMATIC, NORMAL INSPECTION, NORMOCEPHALIC Additional comments: Sitting in the chair comfortably. - Eye Exam Eye Exam: Normal appearance - ENT Exam ENT Exam: Normal External Ear Exam - Neck Exam Neck Exam: Normal Inspection - Respiratory Exam Respiratory Exam: NORMAL BREATHING PATTERN - Cardiovascular Exam Cardiovascular Exam: absent: JVD - GI/Abdominal Exam GI & Abdominal Exam: absent: Distended - Rectal Exam Rectal Exam: Deferred - Exam Additional comments: Deferred. - Extremities Exam Extremities Exam: Normal Inspection - Back Exam Back Exam: NORMAL INSPECTION - Neurological Exam Neurological Exam: Alert, Oriented x3 - Psychiatric Exam Psychiatric exam: Normal Affect, Normal Mood - Skin Skin Exam: Normal Color Assessment and Plan - Assessment and Plan (Free Text) Assessment: Legs pain. Lupus. CHF. CMP. HTN. Asthma. Anxiety. Depression. Plan: Percocet 2.5./325 PO now. Continue present management.
[2017-06-09] MEDS ORDERED: Oxycodone/Acetaminophen 2.5/325 mg Tab PO STA ×2 (04:02→20:51)
[2017-06-09] MEDS: AMPicillin 2 GM in Sodium Chloride 0.9% 100 ML IVPB SCH ×4 (05:01→23:33)
[2017-06-09 08:12] VITALS: O2SAT 95
--- NOTE | 2017-06-09 08:13 | OP ---
DATE: 06/08/2017 REFERRING PHYSICIAN: Estelle Tariq MD. SUBJECTIVE: Patient is sitting in the chair, getting IV antibiotics. Night was unremarkable. No cough. No sputum production. No nausea. No vomiting, diarrhea. No leg pain or leg swelling. PHYSICAL EXAMINATION GENERAL: In no acute distress. VITAL SIGNS: Temperature is 99, heart rate is 80, respiratory rate is 20, blood pressure is 103/65, and pulse oximetry is 96% on room air. HEENT: Moist mucous membranes. No ulcer or thrush. NECK: Supple. No JVD. LUNGS: Fair airflow with rhonchi. HEART: S1 and S2. ABDOMEN: Soft and nontender. No organomegaly. EXTREMITIES: There is no edema. NEUROLOGIC: Awake, alert and follows simple commands MEDICATIONS: She is on ampicillin 2 g IV q.6 hours, Claritin 10 mg daily, hydrocortisone 20 mg twice a day, Dilaudid 0.25 mg IV q.6 hours p.r.n., DuoNeb q.6 hours, Flonase 1 spray each nostril daily, folic acid 1 mg daily, potassium 20 mEq daily, Lasix 40 mg daily, Lipitor 40 mg daily, Lovenox 40 mg daily, micafungin 100 mg daily, nasal saline q.4 hour, Pepcid 20 mg twice a day, promethazine 12.5 mg 3 times a day p.r.n, Primacor IV drip, Tessalon Perles 100 mg three times a day, Tylenol p.r.n., vitamin D 1000 International Unit daily, Zestril 2.5 mg daily. LABORATORY DATA: Reviewed. The last blood culture from 06/03/2017, so far there is no growth. IMPRESSION AND PLAN: Severe cardiomyopathy, Primacor dependent, line sepsis, fungemia, and Enterococcus bacteremia. Central line has been discontinued, has a peripheral line receiving antibiotics, also has a history of systemic lupus erythematosus. Pulmonary point of view, doing okay. Continue bronchodilators, antibiotics as per Infectious Disease. Thank you and we will follow with you. Roberto Mcarthur MD
[2017-06-09] MEDS: Cholecalciferol 1,000 INTLU TAB PO SCH (10:43)
[2017-06-09] MEDS: Enoxaparin 40 mg Syringe SC SCH (10:44)
[2017-06-09] MEDS: Fluticasone Nasal 50 mcg/Spray NS SCH (10:45)
[2017-06-09] MEDS: Micafungin 100 MG in Sodium Chloride 0.9% 100 ML IV SCH (10:46)
[2017-06-09] MEDS: Potassium Chloride 20 mEq ER Tab PO SCH (10:47)
--- NOTE | 2017-06-09 13:36 | PN ---
DATE: SUBJECTIVE: The patient is a 51-year-old female. The patient is seen and examined early in the morning by me. Boyfriend was sitting at the bedside. She is comfortable. Plan was to discharge the patient today home , because of weather condition , have problem of delivering meds .at home and home sevices , she is getting IV infusion and actually licensed social worker did the arrangement, but we are no sure that nurse will be able to go her home to give her infusion,waiting for the situation and hold dc today , but no nausea, vomiting or diarrhea. No hematuria, no hematochezia. No headache. No dizziness. PHYSICAL EXAMINATION: VITAL SIGNS: Temperature 97.3, pulse 78, blood pressure 102/62, and respiratory rate 20. HEENT: Head normocephalic and atraumatic. Eyes: PERRLA. Extraocular muscles intact. Conjunctivae clear. Nose patent. Mucous membranes moist. NECK: Supple. No carotid bruits. No JVD or thyromegaly. CHEST: Bilaterally symmetrical. HEART: S1 and S2 positive. LUNGS: Clear to auscultation. ABDOMEN: Soft. Bowel sounds positive. No organomegaly. EXTREMITIES: No edema. No cyanosis. NEUROLOGIC: The patient is awake and alert. Moving all four extremities. No focal deficits. MEDICATIONS: Ampicillin, Claritin, hydrocortisone, Coumadin, Dilaudid, DuoNeb, Flonase, folic acid, K-Dur, Lasix, Lipitor, Lovenox, micafungin, Pepcid, Phenergan, Primacor drip, potassium, Zestril, vitamin D, Tylenol, and Tessalon Perles. LABORATORY DATA: We do not have recent labs today. We will repeat stat labs. ASSESSMENT AND PLAN: Ms. Stephanie Siddiqui is a 51-year-old female with severe cardiomyopathy, she is on Primacor drip, line sepsis, fungemia, and Enterococcus bacteremia, line has been removed, now received PICC line double lumen; history of systemic lupus erythematosus; adrenal insufficiency, getting steroid. According to Infectious Disease unable to rule out endocarditis, history of right breast cellulitis/mastitis with purulent discharge, growing Serratia, history of bilateral breast mastitis, growing negative Staphylococcus, and Klebsiella pneumoniae, history of vaginal candidiasis, history of pulmonary emboli, cerebrovascular accident, asthma, status post ICD placement. We will continue ampicillin, Mycamine. Today is day #7 of 28 days. We will recommend RANJEET, but Cardio sees the patient has short life span. We will need weekly ESR, CRP, CBC, and CMP while on antifungal medications, antibiotics. Overall prognosis is poor. Appreciated Dr. Salvador's input. We will repeat stat PT/INR. We will follow up. Estelle Tariq MD MTDD
[2017-06-09 14:33] LABS: HEMOGLOBIN 10.9 g/dL (12.0-16.0); MEAN CELL VOLUME 85.7 fl (80.0-105.0); MEAN CORPUSCULAR HEMOGLOBIN 26.3 pg (25.0-35.0); MEAN CORPUSCULAR HGB CONC 30.7 g/dl (31.0-37.0); MEAN PLATELET VOLUME 10.3 fl (7.0-11.0); RBC 4.14 10^6/uL (3.5-6.1); RED CELL DISTRIBUTION WIDTH 15.5 % (11.5-14.5); WHITE BLOOD COUNT 7.3 10^3/ul (4.5-11.0)
[2017-06-09 14:40] LABS: INR 1.08 (0.93-1.08); PROTHROMBIN TIME 12.3 SECONDS (9.4-12.5)
[2017-06-09 14:44] LABS: BLOOD UREA NITROGEN 18 mg/dL (7-21); CALCIUM 8.3 mg/dL (8.4-10.5); GFR AFRICAN-AMERICAN > 60; GFR NON-AFRICAN AMERICAN > 60
--- NOTE | 2017-06-09 18:27 | PN ---
DATE: 06/09/2017 REFERRING PHYSICIAN: Dr. Tariq. SUBJECTIVE: She is lying in the bed, sleepy, arousable. Night was unremarkable. No headache. No chest pain. no nausea. No vomiting or diarrhea. No leg pain or leg swelling. MEDICATIONS: She is on ampicillin 2 gm IV q. 6 hours, Claritin 10 mg daily, hydrocortisone 20 mg twice a day, Coumadin 5 mg will be given today, Dilaudid 0.25 mg q.6 hour p.r.n., DuoNeb q.6 hour, Flonase one spray each nostril daily, folic acid 1 mg daily, potassium 20 mEq daily, Lasix 40 mEq daily, Lipitor 40 mg daily, Lovenox 40 mg subcu daily, micafungin 100 mg daily, nasal saline 1 spray q. 4 hours, Pepcid 20 mg twice a day, promethazine 12.5 mg two times a day p.r.n., Primacor IV drip, Tessalon Perles 100 mg three times a day, Tylenol p.r.n., vitamin D 1000 international units daily, Zestril 2.5 mg daily. OBJECTIVE: GENERAL: In no acute distress. VITAL SIGNS: Temperature 98, heart rate is 75, respiratory rate is 20, blood pressure is 102/62, pulse oximetry 95% on room air. HEENT: Moist mucous membranes. No ulcer or thrush noted. NECK: Supple. No JVD. LUNGS: Have a fair airflow with rhonchi. HEART: S1 and S2. ABDOMEN: Soft and nontender. No organomegaly. EXTREMITIES: No edema. NEUROLOGIC: Awake, alert, and follows simple commands. LABORATORY DATA: Reviewed. No new labs available since yesterday. IMPRESSION AND PLAN: Severe cardiomyopathy, Primacor dependent. Presently, has a fungemia and enterococcus bacteremia secondary to line sepsis, systemic lupus erythematosus upper respiratory illness symptom. Pulmonary point of view, doing okay. Keep head at 45 degrees, bronchodilator, antibiotics as per infectious disease. Gastric prophylaxis, deep venous thrombosis prophylaxis, fall precaution. Thank you and we will follow with you. Roberto Mcarthur MD
--- NOTE | 2017-06-09 23:34 | PN ---
DATE: 06/09/2017 REASON FOR CONSULTATION AND FOLLOWUP: Cardiomyopathy, status post AICD, history of nonischemic cardiomyopathy, admitted with flu-like symptoms, fungemia in the blood, and repeat blood culture is negative. SUBJECTIVE: The patient denies any chest pain, shortness of breath, or any palpitation. Feels better. OBJECTIVE: GENERAL: Awaiting to go to home. VITAL SIGNS: Temperature 97, heart rate 79, and blood pressure 101/61. HEENT: PERRLA. Extraocular muscles are intact. NECK: Supple. No carotid bruits or thyromegaly. CHEST: Clear to auscultation. HEART: S1 and S2 regular. ABDOMEN: Soft. EXTREMITIES: Clubbing and cyanosis negative. LABORATORY DATA: Blood workup as follows; WBC 7.8, hemoglobin 10.9, hematocrit 35.5, and platelet count 179. Chemistry shows sodium 139, potassium 3.4, chloride 101, carbon dioxide 28, anion gap of 14, and BUN 18, creatinine 0.8. IMPRESSION: Fungemia in the blood, three different varieties of fungus. On admission, repeat blood culture is negative, history of endocarditis, status post removal of automated implantable cardioverter-defibrillator, status post placement of automated implantable cardioverter-defibrillator, history of pacemaker placement. Regular echocardiogram did not show any endocarditis, history of single chamber VVI, history of pacemaker, history of atrial septal defect, history of cerebrovascular accident, history of lupus, on anticoagulation, off Coumadin now. RECOMMENDATIONS: We will restart on Coumadin, history of PFO. Continue Primacor. Continue antibiotic. Discussed with Dr. Kahn, who is a [employer] taking care of the patient. We will continue four weeks of antibiotics followed by we will hold antibiotic and repeat blood culture. If the blood culture is positive, the patient needs removal of both port of pacemaker as well as defibrillator. Explained to the patient at length and also discussed with Dr. Kahn on telephone yesterday and communicate the patient, also discussed with you. For now, the patient is awaiting to be educated for IV antibiotic the patient to be discharge home. We will give 5 mg of Coumadin. PT/INR tomorrow. The patient was supratherapeutic and was held by cell operation supervisor as per patient. We will follow with you. Further dose of the Coumadin would be given according to PT/INR. Roberto Jones MD
[2017-06-10] MEDS: Albuterol-Ipratrop 3 mg / 0.5 (3 ml) UD IH SCH ×2 (02:16→08:40)
[2017-06-10] MEDS: HYDROmorphone 0.5 mg/0.5 ml ISec IVP PRN (04:03)
[2017-06-10] MEDS: AMPicillin 2 GM in Sodium Chloride 0.9% 100 ML IVPB SCH ×2 (05:08→11:35)
[2017-06-10 06:57] LABS: PROTHROMBIN TIME 12.1 SECONDS (9.4-12.5)
[2017-06-10 06:58] LABS: INR 1.05 (0.93-1.08)
[2017-06-10 08:57] VITALS: BP 99/64; PULSE 75; RESP 20; TEMP 98.5
[2017-06-10] MEDS: Micafungin 100 MG in Sodium Chloride 0.9% 100 ML IV SCH (09:29)
[2017-06-10] MEDS: Fluticasone Nasal 50 mcg/Spray NS SCH (09:31)
[2017-06-10] MEDS: Potassium Chloride 20 mEq ER Tab PO SCH (09:32)
[2017-06-10] MEDS: Enoxaparin 40 mg Syringe SC SCH (09:32)
[2017-06-10] MEDS: Cholecalciferol 1,000 INTLU TAB PO SCH (09:33)
--- NOTE | 2017-06-10 13:10 | CP.PCM.DIS ---
<Sandee Caceres - Last Filed: 06/10/17 15:16> Provider - Provider Date of Admission: 05/30/17 08:43 Attending physician: Estelle Tariq MD Primary care physician: Ilia Maxwell MD Consults: Ophthalmology- Dr. Pop Pulmonary - Dr.Zubair Gooden - Dr. Metz Cardio - Dr. Jones Make Up Girl - Dr. Bonilla Time Spent in preparation of Discharge (in minutes): 60 Diagnosis - Discharge Diagnosis (1) Fungemia Status: Acute (2) Shortness of breath Status: Acute (3) Cough Status: Acute (4) Antiphospholipid antibody syndrome Status: Acute (5) Hypercoagulopathy Status: Acute (6) Hyperkalemia Status: Acute (7) Hyperlipidemia Status: Acute (8) CHF exacerbation Status: Acute (9) Acute on chronic diastolic CHF (congestive heart failure) Status: Chronic (10) Viral syndrome Status: Acute (11) Lupus Status: Chronic Hospital Course - Lab Results Lab Results: Micro Results 06/03/17 05:30 Blood-Venous Blood Culture - Final NO GROWTH AFTER 5 DAYS 06/03/17 05:30 Blood-Venous Gram Stain - Final TEST NOT PERFORMED 06/03/17 05:10 Blood-Venous Blood Culture - Final NO GROWTH AFTER 5 DAYS 06/03/17 05:10 Blood-Venous Gram Stain - Final TEST NOT PERFORMED 06/01/17 14:44 Blood-Venous Blood Culture - Final Ashley Glabrata 06/01/17 14:44 Blood-Venous Gram Stain - Final 06/01/17 14:30 Blood-Venous Blood Culture - Final Ashley Glabrata 06/01/17 14:30 Blood-Venous Gram Stain - Final 06/01/17 14:20 Catheter Tip Catheter Tip Culture - Final Enterococcus Faecalis Ashley Albicans 05/30/17 12:35 Blood Blood Culture - Final NO GROWTH AFTER 5 DAYS 05/30/17 12:35 Blood Gram Stain - Final TEST NOT PERFORMED 05/30/17 12:25 Blood Blood Culture - Final Ashley Parapsilosis 05/30/17 12:25 Blood Gram Stain - Final 05/30/17 15:55 Sputum Gram Stain - Final 05/30/17 15:55 Sputum Sputum Culture - Final Klebsiella Pneumoniae Ssp Pneu Citrobacter Amalonaticus 05/30/17 Unknown Urine,Clean Catch Urine Culture - Final 10-50,000 CFU/ML. MULTIPLE SPECIES. PROBABLE CONTAMINATION. Most Recent Lab Values WBC 7.3 10^3/ul (4.5-11.0) 06/09/17 14:25 RBC 4.14 10^6/uL (3.5-6.1) 06/09/17 14:25 Hgb 10.9 g/dL (12.0-16.0) L 06/09/17 14:25 Hct 35.5 % (36.0-48.0) L 06/09/17 14:25 MCV 85.7 fl (80.0-105.0) 06/09/17 14:25 MCH 26.3 pg (25.0-35.0) 06/09/17 14:25 MCHC 30.7 g/dl (31.0-37.0) L 06/09/17 14:25 RDW 15.5 % (11.5-14.5) H 06/09/17 14:25 Plt Count 179 10^3/uL (120.0-450.0) 06/09/17 14:25 MPV 10.3 fl (7.0-11.0) 06/09/17 14:25 Gran % 68.7 % (50.0-68.0) H 06/07/17 06:30 Lymph % (Auto) 20.2 % (22.0-35.0) L 06/07/17 06:30 [place] % (Auto) 9.3 % (1.0-6.0) H 06/07/17 06:30 Eos % (Auto) 1.8 % (1.5-5.0) 06/07/17 06:30 Baso % (Auto) 0.0 % (0.0-3.0) 06/07/17 06:30 Gran # 5.34 (1.4-6.5) 06/07/17 06:30 Lymph # 1.6 (1.2-3.4) 06/07/17 06:30 [place] # 0.7 (0.1-0.6) H 06/07/17 06:30 Eos # 0.1 (0.0-0.7) 06/07/17 06:30 Baso # 0.00 K/mm3 (0.0-2.0) 06/07/17 06:30 Neutrophils % (Manual) 91 % (50.0-70.0) H 06/01/17 07:30 Lymphocytes % (Manual) 7 % (22.0-35.0) L 06/01/17 07:30 Monocytes % (Manual) 2 % (1.0-6.0) 06/01/17 07:30 Platelet Evaluation Normal (NORMAL) 06/01/17 07:30 PT 12.1 SECONDS (9.4-12.5) 06/10/17 06:30 INR 1.05 (0.93-1.08) 06/10/17 06:30 APTT 49.7 Seconds (25.1-36.5) H 05/30/17 07:15 Sodium 139 mmol/L (132-148) 06/09/17 14:25 Potassium 3.8 mmol/L (3.6-5.0) 06/09/17 14:25 Chloride 101 mmol/L (98-107) 06/09/17 14:25 Carbon Dioxide 28 mmol/L (21-33) 06/09/17 14:25 Anion Gap 14 (10-20) 06/09/17 14:25 BUN 18 mg/dL (7-21) 06/09/17 14:25 Creatinine 0.8 mg/dl (0.7-1.2) 06/09/17 14:25 Est GFR ( Amer) > 60 06/09/17 14:25 Est GFR (Non-Af Amer) > 60 06/09/17 14:25 POC Glucose (mg/dL) 131 mg/dL (65-110) H 05/30/17 16:35 Random Glucose 105 mg/dL (70-110) 06/09/17 14:25 Hemoglobin A1c 6.2 % (4.2-6.5) 05/30/17 07:30 Calcium 8.3 mg/dL (8.4-10.5) L 06/09/17 14:25 Phosphorus 3.6 mg/dL (2.5-4.5) 06/02/17 06:00 Magnesium 2.1 mg/dL (1.7-2.2) 06/02/17 06:00 Iron 53 ug/dL (45-180) 05/30/17 07:30 TIBC 281 ug/dL (265-497) 05/30/17 07:30 % Saturation 19 % (20-55) L 05/30/17 07:30 Total Bilirubin 0.3 mg/dL (0.2-1.3) 06/07/17 06:30 AST 24 U/L (14-36) 06/07/17 06:30 ALT 28 U/L (7-56) 06/07/17 06:30 Alkaline Phosphatase 65 U/L (38-126) 06/07/17 06:30 Lactate Dehydrogenase 563 U/L (333-699) 05/30/17 07:15 Total Creatine Kinase 106 U/L (35-230) 05/30/17 07:15 Troponin I 0.02 ng/mL D 05/30/17 07:15 NT-Pro-B Natriuret Pep 1900 pg/mL (0-450) H 05/30/17 07:15 Total Protein 6.9 g/dL (5.8-8.3) 06/07/17 06:30 Albumin 3.4 g/dL (3.0-4.8) 06/07/17 06:30 Globulin 3.4 gm/dL 06/07/17 06:30 Albumin/Globulin Ratio 1.0 (1.1-1.8) L 06/07/17 06:30 Triglycerides 90 mg/dL (35-160) 05/30/17 07:30 Cholesterol 232 mg/dL (130-200) H 05/30/17 07:30 LDL Cholesterol Direct 163 mg/dL (0-129) H 05/30/17 07:30 HDL Cholesterol 42 mg/dL (29-60) 05/30/17 07:30 Vitamin B12 528 pg/mL (239-931) 05/30/17 07:30 Folate > 20.0 ng/mL 05/30/17 07:30 Procalcitonin 0.15 NG/ML (0.19-0.49) L 05/30/17 12:25 TSH 3rd Generation 0.04 mIU/mL (0.46-4.68) L 05/31/17 06:45 Urine Color Yellow (YELLOW) 05/30/17 07:15 Urine Appearance Cloudy (CLEAR) 05/30/17 07:15 Urine pH 6.0 (4.7-8.0) 05/30/17 07:15 Ur Specific [place] 1.025 (1.005-1.035) 05/30/17 07:15 Urine Protein Trace mg/dL (<30 mg/dL) H 05/30/17 07:15 Urine Glucose (UA) Negative mg/dL (NEGATIVE) 05/30/17 07:15 Urine Ketones Negative mg/dL (NEGATIVE) 05/30/17 07:15 Urine Blood Large (NEGATIVE) H 05/30/17 07:15 Urine Nitrate Negative (NEGATIVE) 05/30/17 07:15 Urine Bilirubin Negative (NEGATIVE) 05/30/17 07:15 Urine Urobilinogen 0.2 E.U./dL (<1 E.U./dL) 05/30/17 07:15 Ur Leukocyte Esterase Trace Jayant/uL (NEGATIVE) H 05/30/17 07:15 Urine RBC 2 - 5 /hpf (0-2) 05/30/17 07:15 Urine WBC 2 - 5 /hpf (0-6) 05/30/17 07:15 Ur Epithelial Cells 6 - 8 /hpf (0-5) 05/30/17 07:15 Urine Bacteria Few (NEG) 05/30/17 07:15 Urine HCG, Qual Negative (NEGATIVE) 05/30/17 07:15 Complement C3 129.0 mg/dL (88.0-165.0) 05/30/17 12:25 Complement C4 35.3 mg/dL (14.0-44.0) 05/30/17 12:25 Influenza Typ A,B (EIA) Negative for flu a/b (NEGATIVE) 05/30/17 07:15 Influenza Type A Ab 1:16 titer (<1:8) H 05/31/17 06:45 Influenza Type B Ab <1:8 titer (<1:8) 05/31/17 06:45 - Hospital Course Hospital Course: 51yr female w/ history of non-ischemic cardiomyopathy s/p AICD , [place] [address] Kahn, s/p endocarditis, on heart transplant list RW, patent foramen ovale, ASD, on LifeVest milirone drip @ home & coumadin, SLE, stroke, R sided weakness, Pulmonary embolism, Anxiety, depression & R breast cellulitis. Discharged home w/ newly inserted PICC through which IV anti-fungals and primacor drip will require home IV infusion nurse services. 28). Weekly labs: ESR, CRP, CBC, CMP while on antifungals and abx. Two pacemakers (Chest wall) & (L flank), may be source of yeast infection. Repeat cultures, if negative, treat medically x 4 weeks w. antifungals, then if reoccurrence, high risk for removal of both pacemakers, real EF 10% or less Reviewed: Blood culture = (+) Ashley parapsilosis CXR = (+) Pacemaker, WNL ECHO = LVEF 12.4%, systolic function EF 15-20%, AICD/PPM in RA/RV ECG = ABNORMAL: Accelerated junctional rhythm, L axis deviation, inferior infarct, prolonged QT - Date & Time of H&P Date of H&P: 06/10/17 Time of H&P: 09:45 Discharge Exam - Head Exam Head Exam: ATRAUMATIC, NORMAL INSPECTION, NORMOCEPHALIC - Eye Exam Eye Exam: EOMI, Normal appearance, PERRL - ENT Exam ENT Exam: Mucous Membranes Moist - Neck Exam Neck exam: Full Rom - Respiratory Exam Respiratory Exam: Decreased Breath Sounds, Clear to PA & Lateral, NORMAL BREATHING PATTERN - Cardiovascular Exam Cardiovascular Exam: +S1, +S2 - GI/Abdominal Exam GI & Abdominal Exam: Normal Bowel Sounds - Extremities Exam Extremities exam: normal capillary refill, normal inspection Additional comments: R Upper Extremity PICC line patent. dressing C/D/I. - Back Exam Back exam: FULL ROM - Neurological Exam Neurological exam: Alert, CN II-XII Intact, Normal Gait, Oriented x3 - Psychiatric Exam Psychiatric exam: Normal Affect, Normal Mood - Skin Skin Exam: Dry, Intact, Normal Color, Warm Discharge Plan - Follow Up Plan Condition: STABLE Disposition: HOME/ ROUTINE Instructions: Dyspnea (GEN) Referrals: Ilia Maxwell MD [Primary Care Provider] - <Estelle Tariq - Last Filed: 06/10/17 21:53> Provider - Provider Date of Admission: 05/30/17 08:43 Attending physician: Estelle Tariq MD Primary care physician: Ilia Maxwell MD Hospital Course - Lab Results Lab Results: Micro Results 06/03/17 05:30 Blood-Venous Blood Culture - Final NO GROWTH AFTER 5 DAYS 06/03/17 05:30 Blood-Venous Gram Stain - Final TEST NOT PERFORMED 06/03/17 05:10 Blood-Venous Blood Culture - Final NO GROWTH AFTER 5 DAYS 06/03/17 05:10 Blood-Venous Gram Stain - Final TEST NOT PERFORMED 06/01/17 14:44 Blood-Venous Blood Culture - Final Ashley Glabrata 06/01/17 14:44 Blood-Venous Gram Stain - Final 06/01/17 14:30 Blood-Venous Blood Culture - Final Ashley Glabrata 06/01/17 14:30 Blood-Venous Gram Stain - Final 06/01/17 14:20 Catheter Tip Catheter Tip Culture - Final Enterococcus Faecalis Ashley Albicans 05/30/17 12:35 Blood Blood Culture - Final NO GROWTH AFTER 5 DAYS 05/30/17 12:35 Blood Gram Stain - Final TEST NOT PERFORMED 05/30/17 12:25 Blood Blood Culture - Final Ashley Parapsilosis 05/30/17 12:25 Blood Gram Stain - Final 05/30/17 15:55 Sputum Gram Stain - Final 05/30/17 15:55 Sputum Sputum Culture - Final Klebsiella Pneumoniae Ssp Pneu Citrobacter Amalonaticus 05/30/17 Unknown Urine,Clean Catch Urine Culture - Final 10-50,000 CFU/ML. MULTIPLE SPECIES. PROBABLE CONTAMINATION. Most Recent Lab Values WBC 7.3 10^3/ul (4.5-11.0) 06/09/17 14:25 RBC 4.14 10^6/uL (3.5-6.1) 06/09/17 14:25 Hgb 10.9 g/dL (12.0-16.0) L 06/09/17 14:25 Hct 35.5 % (36.0-48.0) L 06/09/17 14:25 MCV 85.7 fl (80.0-105.0) 06/09/17 14:25 MCH 26.3 pg (25.0-35.0) 06/09/17 14:25 MCHC 30.7 g/dl (31.0-37.0) L 06/09/17 14:25 RDW 15.5 % (11.5-14.5) H 06/09/17 14:25 Plt Count 179 10^3/uL (120.0-450.0) 06/09/17 14:25 MPV 10.3 fl (7.0-11.0) 06/09/17 14:25 Gran % 68.7 % (50.0-68.0) H 06/07/17 06:30 Lymph % (Auto) 20.2 % (22.0-35.0) L 06/07/17 06:30 [place] % (Auto) 9.3 % (1.0-6.0) H 06/07/17 06:30 Eos % (Auto) 1.8 % (1.5-5.0) 06/07/17 06:30 Baso % (Auto) 0.0 % (0.0-3.0) 06/07/17 06:30 Gran # 5.34 (1.4-6.5) 06/07/17 06:30 Lymph # 1.6 (1.2-3.4) 06/07/17 06:30 [place] # 0.7 (0.1-0.6) H 06/07/17 06:30 Eos # 0.1 (0.0-0.7) 06/07/17 06:30 Baso # 0.00 K/mm3 (0.0-2.0) 06/07/17 06:30 Neutrophils % (Manual) 91 % (50.0-70.0) H 06/01/17 07:30 Lymphocytes % (Manual) 7 % (22.0-35.0) L 06/01/17 07:30 Monocytes % (Manual) 2 % (1.0-6.0) 06/01/17 07:30 Platelet Evaluation Normal (NORMAL) 06/01/17 07:30 PT 12.1 SECONDS (9.4-12.5) 06/10/17 06:30 INR 1.05 (0.93-1.08) 06/10/17 06:30 APTT 49.7 Seconds (25.1-36.5) H 05/30/17 07:15 Sodium 139 mmol/L (132-148) 06/09/17 14:25 Potassium 3.8 mmol/L (3.6-5.0) 06/09/17 14:25 Chloride 101 mmol/L (98-107) 06/09/17 14:25 Carbon Dioxide 28 mmol/L (21-33) 06/09/17 14:25 Anion Gap 14 (10-20) 06/09/17 14:25 BUN 18 mg/dL (7-21) 06/09/17 14:25 Creatinine 0.8 mg/dl (0.7-1.2) 06/09/17 14:25 Est GFR ( Amer) > 60 06/09/17 14:25 Est GFR (Non-Af Amer) > 60 06/09/17 14:25 POC Glucose (mg/dL) 131 mg/dL (65-110) H 05/30/17 16:35 Random Glucose 105 mg/dL (70-110) 06/09/17 14:25 Hemoglobin A1c 6.2 % (4.2-6.5) 05/30/17 07:30 Calcium 8.3 mg/dL (8.4-10.5) L 06/09/17 14:25 Phosphorus 3.6 mg/dL (2.5-4.5) 06/02/17 06:00 Magnesium 2.1 mg/dL (1.7-2.2) 06/02/17 06:00 Iron 53 ug/dL (45-180) 05/30/17 07:30 TIBC 281 ug/dL (265-497) 05/30/17 07:30 % Saturation 19 % (20-55) L 05/30/17 07:30 Total Bilirubin 0.3 mg/dL (0.2-1.3) 06/07/17 06:30 AST 24 U/L (14-36) 06/07/17 06:30 ALT 28 U/L (7-56) 06/07/17 06:30 Alkaline Phosphatase 65 U/L (38-126) 06/07/17 06:30 Lactate Dehydrogenase 563 U/L (333-699) 05/30/17 07:15 Total Creatine Kinase 106 U/L (35-230) 05/30/17 07:15 Troponin I 0.02 ng/mL D 05/30/17 07:15 NT-Pro-B Natriuret Pep 1900 pg/mL (0-450) H 05/30/17 07:15 Total Protein 6.9 g/dL (5.8-8.3) 06/07/17 06:30 Albumin 3.4 g/dL (3.0-4.8) 06/07/17 06:30 Globulin 3.4 gm/dL 06/07/17 06:30 Albumin/Globulin Ratio 1.0 (1.1-1.8) L 06/07/17 06:30 Triglycerides 90 mg/dL (35-160) 05/30/17 07:30 Cholesterol 232 mg/dL (130-200) H 05/30/17 07:30 LDL Cholesterol Direct 163 mg/dL (0-129) H 05/30/17 07:30 HDL Cholesterol 42 mg/dL (29-60) 05/30/17 07:30 Vitamin B12 528 pg/mL (239-931) 05/30/17 07:30 Folate > 20.0 ng/mL 05/30/17 07:30 Procalcitonin 0.15 NG/ML (0.19-0.49) L 05/30/17 12: TSH 3rd Generation 0.04 mIU/mL (0.46-4.68) L 05/31/17 06:45 Urine Color Yellow (YELLOW) 05/30/17 07:15 Urine Appearance Cloudy (CLEAR) 05/30/17 07:15 Urine pH 6.0 (4.7-8.0) 05/30/17 07:15 Ur Specific [place] 1.025 (1.005-1.035) 05/30/17 07:15 Urine Protein Trace mg/dL (<30 mg/dL) H 05/30/17 07:15 Urine Glucose (UA) Negative mg/dL (NEGATIVE) 05/30/17 07:15 Urine Ketones Negative mg/dL (NEGATIVE) 05/30/17 07:15 Urine Blood Large (NEGATIVE) H 05/30/17 07:15 Urine Nitrate Negative (NEGATIVE) 05/30/17 07:15 Urine Bilirubin Negative (NEGATIVE) 05/30/17 07:15 Urine Urobilinogen 0.2 E.U./dL (<1 E.U./dL) 05/30/17 07:15 Ur Leukocyte Esterase Trace Jayant/uL (NEGATIVE) H 05/30/17 07:15 Urine RBC 2 - 5 /hpf (0-2) 05/30/17 07:15 Urine WBC 2 - 5 /hpf (0-6) 05/30/17 07:15 Ur Epithelial Cells 6 - 8 /hpf (0-5) 05/30/17 07:15 Urine Bacteria Few (NEG) 05/30/17 07:15 Urine HCG, Qual Negative (NEGATIVE) 05/30/17 07:15 Complement C3 129.0 mg/dL (88.0-165.0) 05/30/17 12:25 Complement C4 35.3 mg/dL (14.0-44.0) 05/30/17 12:25 Influenza Typ A,B (EIA) Negative for flu a/b (NEGATIVE) 05/30/17 07:15 Influenza Type A Ab 1:16 titer (<1:8) H 05/31/17 06:45 Influenza Type B Ab <1:8 titer (<1:8) 05/31/17 06:45 - Hospital Course Hospital Course: pt is seen and examined at bed side . looking comfortable , ready to go home . had sepsis , need 4 ws of abs . home infusion arrangement done . pres. of meds given .will f/u need f/u with id , cardio. and pcp . agreed all above , all chart , meds and labs noted , will f/u
--- NOTE | 2017-06-10 18:22 | PN ---
PULMONARY PROGRESS NOTE DATE: 06/10/2017. REFERRING PHYSICIAN: Dr. Tariq. SUBJECTIVE: She is sitting up in a chair, being discharged home, feels okay. No rhinitis, no cough. No nausea, no vomiting, no diarrhea. No leg pain or leg swelling. OBJECTIVE: GENERAL: No acute distress. VITAL SIGNS: Temperature is 98, heart rate is 75, respiratory rate is 20, blood pressure 199/64, pulse ox is 95% on room air. HEENT: Moist mucous membrane. Crowded airway. NECK: Supple. No JVD. LUNGS: Fair airflow with few rhonchi. HEART: S1 and S2. ABDOMEN: Soft, nontender, no organomegaly. EXTREMITIES: No edema. NEUROLOGIC: Awake, alert, follow simple commands. MEDICATIONS: Reviewed. No new changes reported since yesterday. LABORATORY DATA: Reviewed. No new lab is available since yesterday. IMPRESSION AND PLAN: Severe cardiomyopathy, Primacor dependent, diagnosed with fungemia and enterococcus bacteremia, being treated with antibiotics. After negative cultures, she is being sent home for continued antibiotics as per infectious disease. Pulmonary point of view, she is doing okay. May benefit from pulmonary function test and also need attended sleep study, has snoring daytime sleeping with severe cardiomyopathy. Thank you and we will follow with you. Roberto Mcarthur MD
--- NOTE | 2017-06-10 20:47 | PN ---
DATE: 06/10/2017 LOCATION: The patient is in room 365, bed 2. REASON FOR CONSULTATION AND FOLLOWUP: Cardiomyopathy, status post AICD insertion, nonischemic cardiomyopathy, admitted with flu-like symptoms, found to have fungemia in the blood, and repeat blood cultures are negative. SUBJECTIVE: The patient denies any chest pain, shortness of breath, or palpitation. PHYSICAL EXAMINATION: VITAL SIGNS: Blood pressure 99/64, respirations 20, pulse 75, and temperature 98.5. HEENT: Head is normocephalic. Eyes, pupils normal. Conjunctivae are slightly pale. NECK: JVP low. Carotids equal. THORAX: AP diameter normal. LUNGS: Clear. CARDIOVASCULAR: S1 and S2. ABDOMEN: Soft. No tenderness. No organomegaly. Bowels are normal. EXTREMITIES: No clubbing. No cyanosis. LABORATORY DATA: WBC 7.3, hemoglobin 10.9, hematocrit 35.5, and platelets 179. Sodium 139, potassium 3.8, BUN 18, creatinine 0.8, sugar 105, and calcium 8.3. AST and ALT normal. Total protein and albumin normal. IMPRESSION: Fungemia in the blood, three different varieties of fungus noted. On admission, blood culture is positive, but later on blood culture became negative, history of endocarditis, status post removal of automated implantable cardioverter-defibrillator in the past and was replaced with insertion of automated implantable cardioverter-defibrillator, and history of pacemaker placement. Regular echocardiogram did not show evidence of endocarditis. The patient has history of atrial septal defect, history of cerebrovascular accident, and history of lupus, on anticoagulation. PLAN: Coumadin has been restarted, it was on hold earlier because of history of PFO. The patient will need anticoagulation. Continue Primacor. Continue antibiotic. Dr. Jones discussed with Dr. Kahn at [facility] who is a hand turner following this patient. Continue four weeks of antibiotics and follow up by repeat blood cultures. If repeat blood cultures after four weeks treatment positive then the patient need to be removal of both AICD and pacemaker, which are in two different pocket. Dr. Jones told that the patient to communicate with Dr. Kahn and notified Dr. Kahn the whole plan and our findings. The patient to follow PT/INR also. As per the patient previously, the patient's level was high and Coumadin was put on hold by salesperson burial needs as per the patient. Today, the patient's prothrombin time 12.1 and INR 1.05. Roberto Lopez MD
== END 2017-06-10 13:33 | disposition home health service (06) | DRG 314 ==
LOC: ED 05:58 → ERH 08:43 → 3RNO 10:22
PROVIDERS: ADMIT Internal Medicine; ATTEND Internal Medicine
PROC: 02PYX3Z Removal of Infusion Device from Great Vessel, External Approach (ICD-10-PCS; 2017-06-01)
PROC: 02HV33Z Insertion of Infusion Device into Superior Vena Cava, Percutaneous Approach (ICD-10-PCS; principal; 2017-06-08)
PROC: B54MZZA Ultrasonography of Right Upper Extremity Veins, Guidance (ICD-10-PCS; 2017-06-08)
DX: T80.218A Other infection due to central venous catheter, initial encounter (principal); B37.7 Candidal sepsis; I50.43 Acute on chronic combined systolic (congestive) and diastolic (congestive) heart failure; D68.61 Antiphospholipid syndrome; I42.9 Cardiomyopathy, unspecified; E27.40 Unspecified adrenocortical insufficiency; I69.351 Hemiplegia and hemiparesis following cerebral infarction affecting right dominant side; Q21.1 Atrial septal defect; I11.0 Hypertensive heart disease with heart failure; I08.1 Rheumatic disorders of both mitral and tricuspid valves; E83.51 Hypocalcemia; I27.20 Pulmonary hypertension, unspecified; M32.9 Systemic lupus erythematosus, unspecified; E86.0 Dehydration; F32.9 Major depressive disorder, single episode, unspecified; F41.0 Panic disorder [episodic paroxysmal anxiety]; E87.6 Hypokalemia; K21.9 Gastro-esophageal reflux disease without esophagitis; E78.5 Hyperlipidemia, unspecified; B37.3 Candidiasis of vulva and vagina; J32.9 Chronic sinusitis, unspecified; J45.909 Unspecified asthma, uncomplicated; B95.2 Enterococcus as the cause of diseases classified elsewhere; J98.4 Other disorders of lung; Y83.8 Other surgical procedures as the cause of abnormal reaction of the patient, or of later complication, without mention of misadventure at the time of the procedure; Z76.82 Awaiting organ transplant status; Z79.01 Long term (current) use of anticoagulants; Z86.711 Personal history of pulmonary embolism; Z87.891 Personal history of nicotine dependence; Z95.810 Presence of automatic (implantable) cardiac defibrillator; Z79.899 Other long term (current) drug therapy

== ENCOUNTER 2017-06-12 19:26 | Observation (INO) | payer MEDICARE, MEDICAID ==
[2017-06-12 19:26] VITALS: PULSE 98
--- NOTE | 2017-06-12 20:09 | ED PDOC ---
Arrival/HPI - General Chief Complaint: Shortness Of Breath Time Seen by Provider: 06/12/17 20:05 Historian: Patient - History of Present Illness Narrative History of Present Illness (Text): 06/12/17 20:14 51 year old female, whose past medical history includes Lupus, CMP, CHF, hypertension, asthma,, CVA, breast hematoma, anxiety, depression, and panic attack, presents to the Emergency department for medication refill and generalized body ache prior to arrival. Patient informs recent infection of her PICC line in May 2017 for which she was prescribed ampicillin (2g) and micafungin after treatment in [place] [facility] [place]. Patient informs she currently does not have any refills and requests to continue her dosage. Patient additionally informs taking continuous milrinone 424mg/530 mL at 31 mL/ hr for 1.5 years but was recently prescribed a different dose of 320mg/400mL at 23mL/hr for which she requests attention. Patient believes recent change in her medication is making her feel "different" from baseline. Patient also complains of generalized body ache for which she took tylenol prior to arrival with no relief. Patient denies any fever, chills, chest pain, shortness of breath, abdominal pain, vomiting, diarrhea, nausea or any other complaints. Time/Duration: Prior to Arrival Symptom Onset: Gradual Symptom Course: Unchanged Activities at Onset: Light Context: Home Past Medical History - Provider Review Nursing Documentation Reviewed: Yes - Past History Past History: Non-Contributing - Infectious Disease Hx of Infectious Diseases: None - Tetanus Immunization Tetanus Immunization: Unknown - Past Medical History Past Medical History: Non-Contributing - Cardiac Hx Pacemaker: No - Pulmonary Hx Respiratory Disorders: Yes (pe) Hx Asthma: Yes Hx Pneumonia: Yes Other/Comment: h/o intubation,H/O + PPD - Neurological Hx Neurological Disorder: Yes HX Cerebrovascular Accident: Yes (X 2 ,16 ys ago, no residual) Hx Dizziness: Yes - HEENT Hx HEENT Disorder: Yes (eyeglasses, seasonal allergies) - Renal Hx Renal Disorder: No - Endocrine/Metabolic Hx Endocrine Disorders: Yes Hx Systemic Lupus Erythematosus: Yes - Hematological/Oncological Hx Cancer: No - Integumentary Hx Dermatological Disorder: Yes (SCARRING UNDER THE BREAST) - Musculoskeletal/Rheumatological Hx Musculoskeletal Disorders: Yes Hx Falls: Yes - Gastrointestinal Hx Gastrointestinal Disorders: Yes Hx Gastroesophageal Reflux: Yes - Genitourinary/Gynecological Hx Genitourinary Disorders: Yes (NON-MALIGNANT BREAST CALCIFICIATION) Other/Comment: UTERINE FIBROID - Psychiatric Hx Psychophysiologic Disorder: Yes (H/O SMOKING CIGARETTES 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) Hx Anxiety: Yes Hx Depression: Yes Hx Panic Disorder: Yes Hx Substance Use: No - Past Surgical History Past Surgical History: No Previous - Surgical History Hx Mastectomy: No - Anesthesia Hx Anesthesia: Yes Hx Anesthesia Reactions: No Hx Malignant Hyperthermia: No - Suicidal Assessment Feels Threatened In Home Enviroment: No Family/Social History - Physician Review Nursing Documentation Reviewed: Yes Family/Social History: No Known Family HX Smoking Status: Former Smoker Hx Alcohol Use: Yes (SOCIALLY QUIT) Hx Substance Use: No Hx Substance Use Treatment: No Allergies/Home Meds Allergies/Adverse Reactions: Allergies tramadol [From Ultra] Adverse Reaction (Unknown, Verified 05/30/17 16:34) NAUSEA Home Medications: Home Meds Medication Instructions Recorded Confirmed Warfarin [Coumadin] 2 mg PO DAILY 11/03/15 05/30/17 Milrinone 20mg/100ml D5W [Primacor 3.1 rc .ROUTE CONT 12/04/16 05/30/17 20mg/100ml D5W] Cholecalciferol (Vitamin D3) 1 tab PO DAILY 03/09/17 05/30/17 [Vitamin D3] Potassium Chloride [Klor-Con] 20 meq PO DAILY 03/09/17 05/30/17 Lisinopril [Zestril] 2.5 mg PO DAILY 05/06/17 05/30/17 Famotidine 20 mg PO BID 05/30/17 05/30/17 Metoprolol 25 mg PO HS 05/30/17 05/30/17 Xanax 0.25 mg PO QID PRN 05/30/17 05/30/17 Hydrocortisone [Cortef] 20 mg PO BID 06/03/17 06/03/17 Review of Systems - Physician Review All systems were reviewed & negative as marked: Yes - Review of Systems Constitutional: Normal Eyes: Normal ENT: Normal Respiratory: Normal. absent: SOB Cardiovascular: Normal. absent: Chest Pain Gastrointestinal: Normal. absent: Abdominal Pain, Diarrhea, Nausea, Vomiting Genitourinary Female: Normal Musculoskeletal: Other (body ache ) Skin: Normal Neurological: Normal Endocrine: Normal Hemo/Lymphatic: Normal Psychiatric: Anxiety (PMhx), Depression (PMhx) Physical Exam Vital Signs Reviewed: Yes Vital Signs Temp Pulse Resp BP Pulse Ox 06/13/17 02:50 63 114/63 06/12/17 23:15 61 17 104/64 98 06/12/17 19:58 97.8 F 76 17 101/84 98 06/12/17 19:55 17 98 Temperature: Afebrile Blood Pressure: Normal Pulse: Regular Respiratory Rate: Normal Appearance: Positive for: Well-Appearing, Non-Toxic, Comfortable Pain Distress: None Mental Status: Positive for: Alert and Oriented X 3 - Systems Exam Head: Present: Atraumatic, Normocephalic Pupils: Present: PERRL Extroacular Muscles: Present: EOMI Conjunctiva: Present: Normal Mouth: Present: Moist Mucous Membranes Neck: Present: Normal Range of Motion Respiratory/Chest: Present: Clear to Auscultation, Good Air Exchange. No: Respiratory Distress, Accessory Muscle Use Cardiovascular: Present: Regular Rate and Rhythm, Normal S1, S2. No: Murmurs Abdomen: Present: Normal Bowel Sounds. No: Tenderness, Distention, Peritoneal Signs Back: Present: Normal Inspection Upper Extremity: Present: Normal Inspection. No: Cyanosis, Edema Lower Extremity: Present: Normal Inspection. No: Edema Neurological: Present: GCS=15, CN II-XII Intact, Speech Normal Skin: Present: Warm, Dry, Normal Color. No: Rashes Psychiatric: Present: Alert, Oriented x 3, Normal Insight, Normal Concentration Medical Decision Making ED Course and Treatment: 06/12/17 20:28 Impression: 51 year old female presents to the Emergency department for generalized body ache and prescription refill. Plan: -- EKG -- VBG -- Labs -- Chest X-ray -- Ampicillin -- Morphine -- Zofran -- Blood culture -- Reassess and disposition Progress Notes: 06/12/17 20:35 EKG: Ordered, reviewed, and independently interpreted the EKG. Rate : 70 BPM Rhythm : NSR Interpretation : Sinus rhythm with occassional premature ventricular complexes. Possible left atrial enlargement. Left anterior fascicular block. Prolonged QT. 06/13/17 01:02 CXR Impression: As read by me, CHF with congestion. Markingly different from last Chest X-ray. Consistent with current BMP value. - Lab Interpretations Microbiology Results: Microbiology Results 06/12/17 20:55 Blood-Venous Blood Culture - Preliminary NO GROWTH AFTER 24 HOURS 06/12/17 20:35 Blood-Venous Blood Culture - Preliminary NO GROWTH AFTER 24 HOURS Lab Results: 06/12/17 20:35 06/12/17 20:35 Lab Results 06/12/17 20:35: Sodium 144, Chloride 104, Potassium 3.7, Carbon Dioxide 30, Anion Gap 14, BUN 17, Creatinine 0.9, Est GFR ( Amer) > 60, Est GFR (Non- Af Amer) > 60, Random Glucose 98, Calcium 8.3 L, Total Bilirubin 0.5, AST 31, ALT 46, Alkaline Phosphatase 93, Troponin I 0.02, NT-Pro-B Natriuret Pep 3360 H , Total Protein 7.2, Albumin 3.6, Globulin 3.6, Albumin/Globulin Ratio 1.0 L 06/12/17 20:35: pO2 42, VBG pH 7.41, VBG pCO2 54.0, VBG HCO3 34.2 H, VBG Total CO2 35.9 H, VBG O2 Sat (Calc) 82.3 H, VBG Base Excess 7.8 H, VBG Potassium 3.8, Sodium 143.0, Chloride 108.0 H, Glucose 100, Lactate 0.9, FiO2 21.0, Venous Blood Potassium 3.8 06/12/17 20:35: WBC 7.2, RBC 4.27, Hgb 11.4 L, Hct 37.3, MCV 87.4, MCH 26.7, MCHC 30.6 L, RDW 15.7 H, Plt Count 176, MPV 10.4, Gran % 67.9, Lymph % (Auto) 16.9 L, [place] % (Auto) 12.4 H, Eos % (Auto) 2.7, Baso % (Auto) 0.1, Gran # 4.85, Lymph # 1.2, [place] # 0.9 H, Eos # 0.2, Baso # 0.01 - RAD Interpretation Radiology Orders: 06/12/17 20:14 CHEST PORTABLE [RAD] Stat - EKG Interpretation Interpreted by ED Physician: Yes Type: 12 lead EKG - Medication Orders Current Medication Orders: Discontinued Medications Acetaminophen (Tylenol 325mg Tab) 650 mg PO ONCE ONE Stop: 06/13/17 03:42 Last Admin: 06/13/17 05:47 Dose: Not Given Non-Admin Reason: Patient Refused Alprazolam (Xanax) 0.25 mg PO QID PRN PRN Reason: Anxiety Stop: 06/20/17 07:16 Cholecalciferol (Vitamin D) 1,000 intlu PO DAILY [facility] Last Admin: 06/13/17 09:43 Dose: 1,000 intlu Famotidine (Pepcid) 20 mg PO BID [facility] Last Admin: 06/13/17 09:43 Dose: 20 mg Hydrocortisone (Cortef) 20 mg PO BID [facility] Last Admin: 06/13/17 09:43 Dose: 20 mg Hydromorphone HCl (Dilaudid) 0.25 mg IVP Q6H PRN PRN Reason: Pain, severe (8-10) Last Admin: 06/13/17 05:37 Dose: 0.25 mg [facility] Pain Assessment Document 06/13/17 05:37 SD (Rec: 06/13/17 05:38 SD [id number]) Pain Reassessment Is this a pain reassessment? No IVP Administration Document 06/13/17 05:37 SD (Rec: 06/13/17 05:38 SD [id number]) Charges for Administration # of IVP Administrations 1 Re-Assess: [facility] Pain Assessment Document 06/13/17 06:37 SD (Rec: 06/13/17 07:06 SD [id number]) Pain Reassessment Is this a pain reassessment? Yes Sleep Is patient sleeping during reassessment? No Presence of Pain Presence of Pain No Pain Scale Used Pain Scale Used Numeric Ampicillin 2 gm/ Sodium (Chloride) 100 mls @ 200 mls/hr IVPB Q6 ANA LILIA PRN Reason: Protocol Ampicillin 2 gm/ Sodium (Chloride) 100 mls @ 200 mls/hr IVPB Q6 ANA LILIA PRN Reason: Protocol Ampicillin 2 gm/ Sodium (Chloride) 100 mls @ 200 mls/hr IVPB ONCE ONE PRN Reason: Protocol Stop: 06/12/17 20:51 Last Admin: 06/12/17 21:59 Dose: 200 mls/hr eMAR Start Stop Document 06/12/17 21:59 IT (Rec: 06/12/17 21:59 IT [id number]) Intravenous Solution Start Date 06/12/17 Start Time 21:59 End Date 06/12/17 Milrinone Lactate/Dextrose (Primacor 20mg/100ml D5w) 100 mls @ 124.29 mls/hr IV .Q49M ANA LILIA PRN Reason: Protocol Milrinone Lactate/Dextrose (Primacor 20mg/100ml D5w) 100 mls @ 12.383 mls/hr IV .Q8H5M ANA LILIA; 0.5 MCG/KG/MIN PRN Reason: Protocol Last Admin: 06/13/17 10:01 Dose: 12.383 mls/hr eMAR Start Stop Document 06/13/17 10:01 ML (Rec: 06/13/17 10:01 ML [id number]) Intravenous Solution Start Date 06/13/17 Start Time 10:01 End Date 06/13/17 End time 10:30 Total Infusion Time 29 Ampicillin 2 gm/ Sodium (Chloride) 100 mls @ 200 mls/hr IVPB Q6 ANA LILIA PRN Reason: Protocol Stop: 07/11/17 12:01 Last Admin: 06/13/17 12:32 Dose: 200 mls/hr eMAR Start Stop Document 06/13/17 12:32 ML (Rec: 06/13/17 12:32 ML [id number]) Intravenous Solution Start Date 06/13/17 Start Time 12:32 End Date 06/13/17 End time 13:30 Total Infusion Time 58 Micafungin Sodium 100 mg/ (Sodium Chloride) 100 mls @ 100 mls/hr IV DAILY ANA LILIA PRN Reason: Protocol Stop: 07/11/17 10:01 Last Admin: 06/13/17 09:49 Dose: 100 mls/hr Lisinopril (Zestril) 2.5 mg PO DAILY [facility] Last Admin: 06/13/17 10:26 Dose: Not Given Non-Admin Reason: BP Parameters Not Met Metoprolol Tartrate (Lopressor) 25 mg PO HS ANA LILIA Morphine Sulfate (Morphine) 4 mg IVP STAT STA Stop: 06/12/17 20:17 Last Admin: 06/12/17 21:19 Dose: 4 mg MAR Pain Assessment Document 06/12/17 21:19 IT (Rec: 06/12/17 21:19 IT [id number]) Pain Reassessment Is this a pain reassessment? No Sleep Is patient sleeping during reassessment? No Presence of Pain Presence of Pain Yes Pain Scale Used Pain Scale Used Numeric Location Left, Right or Bilateral Bilateral IVP Administration Document 06/12/17 21:19 IT (Rec: 06/12/17 21:19 IT [id number]) Charges for Administration # of IVP Administrations 1 Ondansetron HCl (Zofran Inj) 4 mg IVP STAT STA Stop: 06/12/17 20:17 Last Admin: 06/12/17 21:19 Dose: 4 mg IVP Administration Document 06/12/17 21:19 IT (Rec: 06/12/17 21:19 IT [id number]) Charges for Administration # of IVP Administrations 1 Potassium Chloride (K-Dur 20 Meq Er Tab) 20 meq PO BRK [facility] Last Admin: 06/13/17 09:47 Dose: 20 meq Warfarin Sodium (Coumadin) 2 mg PO 1800 ANA LILIA - PA / BLASTING 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 - Scribe Statement The provider has reviewed the documentation as recorded by the Scribmelanie Newman. All medical record entries made by the Dishaibmelanie were at my direction and personally dictated by me. I have reviewed the chart and agree that the record accurately reflects my personal performance of the history, physical exam, medical decision making, and the department course for this patient. I have also personally directed, reviewed, and agree with the discharge instructions and disposition. Disposition/Present on Arrival - Present on Arrival Any Indicators Present on Arrival: No History of DVT/PE: No History of Uncontrolled Diabetes: No Urinary Catheter: No History of Decub. Ulcer: No History Surgical Site Infection Following: None - Disposition Have Diagnosis and Disposition been Completed?: Yes Diagnosis: CHF (congestive heart failure), CHF exacerbation, Lupus, Line sepsis Disposition: HOSPITALIZED Disposition Time: 23:00 Patient Plan: Admission, Telemetry Condition: GOOD
[2017-06-12] MEDS ORDERED: Morphine 4 mg/ml ISec IVP STA (20:16)
[2017-06-12] MEDS ORDERED: AMPicillin 2 GM in Sodium Chloride 0.9% 100 ML IVPB SCH (20:21)
[2017-06-12] MEDS ORDERED: AMPicillin 2 GM in Sodium Chloride 0.9% 100 ML IVPB ONE (20:23)
[2017-06-12 20:48] LABS: VENOUS BLOOD GAS BASE EXCESS 7.8 mmol/L (0.0-2.0); VENOUS BLOOD GAS PO2 42 mm/Hg (30-55); VENOUS BLOOD PH 7.41 (7.32-7.43)
[2017-06-12 20:54] LABS: BASO # 0.01 K/mm3 (0.0-2.0); BASO % 0.1 % (0.0-3.0); EOS # 0.2 (0.0-0.7); EOS % 2.7 % (1.5-5.0); GRAN # 4.85 (1.4-6.5); GRAN % 67.9 % (50.0-68.0); HEMOGLOBIN 11.4 g/dL (12.0-16.0); LYMPH # 1.2 (1.2-3.4); LYMPH % 16.9 % (22.0-35.0); MEAN CELL VOLUME 87.4 fl (80.0-105.0); MEAN CORPUSCULAR HEMOGLOBIN 26.7 pg (25.0-35.0); MEAN CORPUSCULAR HGB CONC 30.6 g/dl (31.0-37.0); MEAN PLATELET VOLUME 10.4 fl (7.0-11.0); MONO # 0.9 (0.1-0.6); MONO % 12.4 % (1.0-6.0); RBC 4.27 10^6/uL (3.5-6.1); RED CELL DISTRIBUTION WIDTH 15.7 % (11.5-14.5); WHITE BLOOD COUNT 7.2 10^3/ul (4.5-11.0)
[2017-06-12 21:07] LABS: ALBUMIN 3.6 g/dL (3.0-4.8); ALT/SGPT 46 U/L (7-56); AST/SGOT 31 U/L (14-36); BLOOD UREA NITROGEN 17 mg/dL (7-21); CALCIUM 8.3 mg/dL (8.4-10.5); GFR AFRICAN-AMERICAN > 60; GFR NON-AFRICAN AMERICAN > 60
[2017-06-12 21:08] LABS: B-TYPE NATRIURETIC PEPTIDE 3360 pg/mL (0-450); TROPONIN I 0.02 ng/mL
[2017-06-13] MEDS ORDERED: Milrinone 20mg/100ml D5W 100 ML IV SCH (02:15)
[2017-06-13] MEDS: Milrinone 20mg/100ml D5W 100 ML IV SCH ×2 (02:50→10:01)
[2017-06-13] MEDS ORDERED: HYDROmorphone 0.5 mg/0.5 ml ISec IVP PRN (05:12)
[2017-06-13 06:50] VITALS: RESP 18; BMI 14.5
[2017-06-13] MEDS ORDERED: Potassium Chloride 20 mEq ER Tab PO SCH (08:00)
[2017-06-13 08:24] LABS: INR 1.19 (0.93-1.08); PROTHROMBIN TIME 13.7 SECONDS (9.4-12.5)
--- NOTE | 2017-06-13 09:17 | RAD ---
HISTORY: Personal history of congestive heart failure. COMPARISON: No prior. FINDINGS: LUNGS: No active pulmonary disease. PLEURA: No significant pleural effusion identified, no pneumothorax apparent. CARDIOVASCULAR: No radiographic findings to suggest acute or significant cardiovascular disease. PICC line in satisfactory position unchanged compared to the prior study. Position/ configuration of pacemaker OSSEOUS STRUCTURES: No significant abnormalities. VISUALIZED UPPER ABDOMEN: Normal. OTHER FINDINGS: None. IMPRESSION: No active disease. No significant interval change compared to the prior examination(s).
[2017-06-13 09:32] VITALS: BP 98/65; PULSE 77; TEMP 97.4; O2SAT 95
[2017-06-13] MEDS ORDERED: Micafungin 100 MG in Sodium Chloride 0.9% 100 ML IV SCH (10:00)
[2017-06-13] MEDS ORDERED: Cholecalciferol 1,000 INTLU TAB PO SCH (10:00)
[2017-06-13] MEDS ORDERED: AMPicillin 2 GM in Sodium Chloride 0.9% 100 ML IVPB SCH ×2 (12:00)
--- NOTE | 2017-06-13 12:43 | CP.PCM.HP ---
<Sandee Caceres - Last Filed: 06/14/17 00:01> History of Present Illness - History of Present Illness History of Present Illness: 51yr female w/ history of non-ischemic cardiomyopathy s/p AICD , recent [place] [address] Kahn, s/p endocarditis, on heart transplant list [facility], patent foramen ovale, ASD, on LifeVest milirone drip @ home & coumadin, SLE, stroke, R sided weakness, Pulmonary embolism, Anxiety, depression & R breast cellulitis. She was discharged home from [facility] on 06/08/17 with newly inserted PICC for treatment w/ IV anti-fungals (Blood culture = (+) Ashley parapsilosis) and primacor drip (LVEF 12.4%, systolic function EF 15-20% , AICD/PPM in RA/RV). She states that she was prescribed ampicillin (2g) and micafungin and currently does not have any refills. She also states that she was on continuous milrinone 424mg/530 mL at 31 mL/hr for 1.5 years but was recently prescribed a different dose of 320mg/400mL at 23mL/hr. SHe believes this decrease in medication has made her bilateral lower extremities swell. She reports feeling increased shortness of breath. Denies any headaches, N/V, fevers , constipation, diarrhea, urinary changes or distress Present on Admission - Present on Admission Any Indicators Present on Admission: No History of DVT/PE: Yes History of Uncontrolled Diabetes: No Urinary Catheter: No Decubitus Ulcer Present: No Review of Systems - Constitutional Constitutional: As Per HPI - EENT Eyes: As Per HPI Ears: As Per HPI Nose/Mouth/Throat: As Per HPI - Breasts Breasts: As Per HPI - Cardiovascular Cardiovascular: As Per HPI - Respiratory Respiratory: As Per HPI - Gastrointestinal Gastrointestinal: As Per HPI - Genitourinary Genitourinary: As Per HPI - Musculoskeletal Musculoskeletal: As Per HPI - Integumentary Integumentary: As Per HPI - Neurological Neurological: As Per HPI - Psychiatric Psychiatric: As Per HPI - Endocrine Endocrine: As Per HPI - Hematologic/Lymphatic Hematologic: As Per HPI Past Patient History - Infectious Disease Hx of Infectious Diseases: None - Tetanus Immunizations Tetanus Immunization: Unknown - Past Medical History & Family History Past Medical History?: Yes - Past Social History Smoking Status: Former Smoker - CARDIAC Hx Pacemaker: No - PULMONARY Hx Respiratory Disorders: Yes (pe) Hx Asthma: Yes Hx Pneumonia: Yes Other/Comment: h/o intubation,H/O + PPD - NEUROLOGICAL Hx Neurological Disorder: Yes HX Cerebrovascular Accident: Yes (X 2 ,16 ys ago, no residual) Hx Dizziness: Yes - HEENT Hx HEENT Problems: Yes (eyeglasses, seasonal allergies) - RENAL Hx Chronic Kidney Disease: No - ENDOCRINE/METABOLIC Hx Endocrine Disorders: Yes Hx Systemic Lupus Erythematosus: Yes - HEMATOLOGICAL/ONCOLOGICAL Hx Cancer: No - INTEGUMENTARY Hx Dermatological Problems: Yes (SCARRING UNDER THE BREAST) - MUSCULOSKELETAL/RHEUMATOLOGICAL Hx Musculoskeletal Disorders: Yes Hx Falls: Yes - GASTROINTESTINAL Hx Gastrointestinal Disorders: Yes Hx Gastroesophageal Reflux: Yes - GENITOURINARY/GYNECOLOGICAL Hx Genitourinary Disorders: Yes (NON-MALIGNANT BREAST CALCIFICIATION) Other/Comment: UTERINE FIBROID - PSYCHIATRIC Hx Psychophysiologic Disorder: Yes (H/O SMOKING CIGARETTES 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) Hx Anxiety: Yes Hx Depression: Yes Hx Panic Symptoms: Yes Hx Substance Use: No - SURGICAL HISTORY Hx Mastectomy: No - ANESTHESIA Hx Anesthesia: Yes Hx Anesthesia Reactions: No Hx Malignant Hyperthermia: No Meds Home Medications: Home Medication List Medication Instructions Recorded Confirmed Type Milrinone 20mg/100ml D5W [Primacor 20 mg IV DAILY #1 bag 06/13/17 Rx 20mg/100ml D5W] Allergies/Adverse Reactions: Allergies Allergy/AdvReac Type Severity Reaction Status Date / Time tramadol [From Ultram] AdvReac Unknown NAUSEA Verified 05/30/17 16:34 Physical Exam - Constitutional Appears: Chronically Ill - Head Exam Head Exam: ATRAUMATIC, NORMAL INSPECTION, NORMOCEPHALIC - Eye Exam Eye Exam: EOMI, Normal appearance, PERRL - ENT Exam ENT Exam: Mucous Membranes Moist, Normal Exam - Neck Exam Neck exam: Positive for: Normal Inspection - Respiratory Exam Respiratory Exam: Clear to Auscultation Bilateral, NORMAL BREATHING PATTERN - Cardiovascular Exam Cardiovascular Exam: +S1, +S2 - GI/Abdominal Exam GI & Abdominal Exam: Normal Bowel Sounds, Soft. absent: Tenderness - Extremities Exam Extremities exam: Positive for: pedal edema - Back Exam Back exam: NORMAL INSPECTION - Neurological Exam Neurological exam: Alert, CN II-XII Intact, Normal Gait, Oriented x3, Reflexes Normal - Psychiatric Exam Psychiatric exam: Normal Affect, Normal Mood - Skin Skin Exam: Dry, Intact, Normal Color, Warm Results - Vital Signs Recent Vital Signs: Last Vital Signs Temp 97.4 F L 06/13/17 09:32 Pulse 77 06/13/17 09:32 Resp 18 06/13/17 09:32 BP 98/65 L 06/13/17 09:32 Pulse Ox 95 06/13/17 09:32 - Labs Result Diagrams: 06/12/17 20:35 06/12/17 20:35 Labs: Laboratory Results - last 24 hr 06/13/17 06/13/17 07:00 07:00 PT 13.7 H INR 1.19 H Total Creatine Kinase 37 Assessment & Plan (1) Dyspnea Status: Acute (2) Fungemia Status: Acute (3) Acute on chronic diastolic CHF (congestive heart failure) Status: Chronic - Assessment and Plan (Free Text) Plan: Requesting consult from ID and Cardio for clarification of medication orders. Then, patient may resume weekly labs: ESR, CRP, CBC, CMP while on antifungals and abx. Two pacemakers (Chest wall) & (L flank), may be source of yeast infection. Repeat cultures, if negative, treat medically x 4 weeks w. antifungals, then if reoccurrence, high risk for removal of both pacemakers, real EF 10% or less Consults: [facility] - Dr. Metz Cardio - Dr. Jones Reviewed: CXR = (+) Pacemaker, WNL ECG = ABNORMAL: Sinus rhythm, PVC, possible L atrial enlargement, L anterior fascicular block, prolonged QT - Date & Time Date: 06/13/17 Time: 11:00 Decision To Admit - Pt Status Changed To: Hospital Disposition Of: Observation - . Bed Request Type: Telemetry <Estelle Tariq - Last Filed: 06/14/17 15:28> Results - Vital Signs Recent Vital Signs: Last Vital Signs Temp 97.4 F L 06/13/17 09:32 Pulse 77 06/13/17 09:32 Resp 18 06/13/17 09:32 BP 98/65 L 06/13/17 09:32 Pulse Ox 95 06/13/17 09:32 - Labs Result Diagrams: 06/12/17 20:35 06/12/17 20:35 Assessment & Plan - Assessment and Plan (Free Text) Plan: 51yr female w/ history of non-ischemic cardiomyopathy s/p AICD , [place] [address] Kahn, s/p endocarditis, on heart transplant list [facility], patent foramen ovale, ASD, on LifeVest milirone drip @ home & coumadin, SLE, stroke, R sided weakness, Pulmonary embolism, Anxiet, will f/u as pt y, depression & R breast cellulitis. She was discharged home from [facility] on 06/08/17 with newly inserted PICC for treatment w/ IV anti-fungals ( Blood culture = (+) Ashley parapsilosis) and primacor drip (LVEF 12.4%, systolic function EF 15-20%, AICD/PPM in RA/RV). She states that she was prescribed ampicillin (2g) and micafungin and currently does not have any refills. She also states that she was on continuous milrinone 424mg/530 mL at 31 mL/hr for 1.5 years but was recently prescribed a different dose of 320mg/ 400mL at 23mL/hr. SHe believes this decrease in medication has made her bilateral lower extremities swell. She reports feeling increased shortness of breath. Denies any headaches, N/V, fevers, constipation, diarrhea, urinary changes or distress , pt is seen and examined at bed side , looking comfortable , agreed all above , no n.v.d or arambula , adjusted dose of Milirenone , arrangement of i/v anb . done
--- NOTE | 2017-06-13 16:31 | CP.PCM.CON ---
History of Present Illness - History of Present Illness History of Present Illness: 51 year old fmelae with PMH of Systemic Lupus Erythematosus, S/P AICD placement , history of pulmonary emboli, history of cerebrovascular accident, asthma, history of Sepsis due to right breast cellulitis/mastitis with purulent discharge, growing Serratia, history of bilateral breast mastitis growing coagulase negative Staph and Klebsiella pneumoniae was recently admitted in [facility] [place] for Sepsis due to C. parapsilosis and C. glabrata fungemia and Enterococcus bacteremia probably from PICC line. She was discharged to complete at least a total of 28 days of antibiotics and antifungals. She came back complaining of feeling weak and that her meds were apparently not given properly. She denies fever or chills, no nausea or vomiting, no headache or dizziness, no sore throat , no SOB, no cough or colds, no dysphagia, no abdominal pain, no dysuria, no diarrhea. Infectious Diseases consult is requested to further evaluate and manage. Review of Systems - Review of Systems All systems: reviewed and no additional remarkable complaints except (as per HPI ) Past Patient History - Infectious Disease Hx of Infectious Diseases: None - Tetanus Immunizations Tetanus Immunization: Unknown - Past Medical History & Family History Past Medical History?: Yes - Past Social History Smoking Status: Former Smoker - CARDIAC Hx Pacemaker: No - PULMONARY Hx Respiratory Disorders: Yes (pe) Hx Asthma: Yes Hx Pneumonia: Yes Other/Comment: h/o intubation,H/O + PPD - NEUROLOGICAL Hx Neurological Disorder: Yes HX Cerebrovascular Accident: Yes (X 2 ,16 ys ago, no residual) Hx Dizziness: Yes - HEENT Hx HEENT Problems: Yes (eyeglasses, seasonal allergies) - RENAL Hx Chronic Kidney Disease: No - ENDOCRINE/METABOLIC Hx Endocrine Disorders: Yes Hx Systemic Lupus Erythematosus: Yes - HEMATOLOGICAL/ONCOLOGICAL Hx Cancer: No - INTEGUMENTARY Hx Dermatological Problems: Yes (SCARRING UNDER THE BREAST) - MUSCULOSKELETAL/RHEUMATOLOGICAL Hx Musculoskeletal Disorders: Yes Hx Falls: Yes - GASTROINTESTINAL Hx Gastrointestinal Disorders: Yes Hx Gastroesophageal Reflux: Yes - GENITOURINARY/GYNECOLOGICAL Hx Genitourinary Disorders: Yes (NON-MALIGNANT BREAST CALCIFICIATION) Other/Comment: UTERINE FIBROID - PSYCHIATRIC Hx Psychophysiologic Disorder: Yes (H/O SMOKING CIGARETTES 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) Hx Anxiety: Yes Hx Depression: Yes Hx Panic Symptoms: Yes Hx Substance Use: No - SURGICAL HISTORY Hx Mastectomy: No - ANESTHESIA Hx Anesthesia: Yes Hx Anesthesia Reactions: No Hx Malignant Hyperthermia: No Meds Home Medications: Home Medication List Medication Instructions Recorded Confirmed Type Milrinone 20mg/100ml D5W [Primacor 20 mg IV DAILY #1 bag 06/13/17 Rx 20mg/100ml D5W] Allergies/Adverse Reactions: Allergies Allergy/AdvReac Type Severity Reaction Status Date / Time tramadol [From Ultram] AdvReac Unknown NAUSEA Verified 05/30/17 16:34 - Medications Medications: Current Medications Hydromorphone HCl (Dilaudid) 0.25 mg IVP Q6H PRN PRN Reason: Pain, severe (8-10) Last Admin: 06/13/17 05:37 Dose: 0.25 mg Milrinone Lactate/Dextrose (Primacor 20mg/100ml D5w) 100 mls @ 12.383 mls/hr IV .Q8H5M ANA LILIA; 0.5 MCG/KG/MIN PRN Reason: Protocol Last Admin: 06/13/17 02:50 Dose: 12.383 mls/hr Lisinopril (Zestril) 2.5 mg PO DAILY ANA LILIA Non-Formulary Medication (Cholecalciferol (Vitamin D3) [Vitamin D3]) 1 tab PO DAILY ANA LILIA Non-Formulary Medication (Famotidine) 20 mg PO BID ANA LILIA Non-Formulary Medication (Hydrocortisone [Cortef]) 20 mg PO BID ANA LILIA Non-Formulary Medication (Metoprolol) 25 mg PO HS ANA LILIA Non-Formulary Medication (Potassium Chloride [Klor-Con]) 20 meq PO DAILY ANA LILIA Non-Formulary Medication (Warfarin [Coumadin]) 2 mg PO DAILY ANA LILIA Non-Formulary Medication (Xanax) 0.25 mg PO QID PRN PRN Reason: Anxiety Physical Exam - Constitutional Appears: Chronically Ill - Head Exam Head Exam: NORMAL INSPECTION - Neck Exam Neck exam: Negative for: Meningismus - Respiratory Exam Respiratory Exam: Decreased Breath Sounds - Cardiovascular Exam Cardiovascular Exam: +S1, +S2 - GI/Abdominal Exam GI & Abdominal Exam: Soft. absent: Tenderness - Extremities Exam Additional comments: left arm PICC line intact Results - Vital Signs Recent Vital Signs: Last Vital Signs Temp 98.2 F 06/13/17 03:23 Pulse 63 06/13/17 03:23 Resp 17 06/13/17 03:23 BP 114/63 06/13/17 03:23 Pulse Ox 98 06/13/17 03:23 - Labs Result Diagrams: 06/12/17 20:35 06/12/17 20:35 Assessment & Plan - Assessment and Plan (Free Text) Plan: Assessment Sepsis due to C. parapsilosis and C. glabrata fungemia and Enterococcus bacteremia probably from PICC line, unable to rule out endocarditis history of Sepsis due to right breast cellulitis/mastitis with purulent discharge, growing Serratia history of bilateral breast mastitis growing coagulase negative Staph and Klebsiella pneumoniae history of vaginal candidiasis SLE history of pulmonary emboli CVA asthma S/P ICD placement Plan continue Ampicillin and mycamine (day 11 of at least 28 days); would recommend RANJEET but Cardio feels patient has short life span; will need weekly ESR, CRP, CBC , CMP while on antifungals and antibiotics Overall prognosis is poor
--- NOTE | 2017-06-13 16:53 | CARD ---
APPROVED REPORT EKG Measurement Heart [id number] <Conclusion> Sinus rhythm with occasional premature ventricular complexes Possible Left atrial enlargement Left anterior fascicular block Prolonged QT Abnormal ECG
--- NOTE | 2017-06-14 08:35 | CON ---
DATE: 06/13/2017 REASON FOR CONSULTATION: History of lupus, history of CHF, CMP, non-ischemic cardiomyopathy on Primacor. Admitted recently, discharged yesterday, admitted because ran out of antibiotics and ran out Primacor. BRIEF CLINICAL HISTORY: This is a 51-year-old female with past medical history significant for lupus, SLE, nonischemic cardiomyopathy, status post AICD admitted after being discharged because ran out antibiotic and ran out Primacor. Denies any chest pain, denies any shortness of breath, denies any palpitation. PAST MEDICAL HISTORY: Significant for lupus disorder, history of SLE, history of prior stroke, history of foramen ovale, right-sided weakness on Coumadin status post AICD, initially placed in 2013 in [place] and recently generator change [place] [address] Kahn, on home Primacor and was sent recently on antibiotics for fungemia in the blood, but the patient ran out of medication, so came to the Emergency Room. Denies any chest pain, shortness of breath or any palpitation. PREVIOUS CARDIAC WORKUP: The patient's most recent echocardiography on 05/31/2017 did not show any vegetation, ejection fraction 15 to 20% on Primacor, mild mitral regurgitation, mild tricuspid regurgitation, mild pulmonary insufficiency. CURRENT MEDICATIONS: The patient is taking at home Coumadin, metoprolol, lisinopril, milrinone and antifungal medication. REVIEW OF SYSTEMS: As per HPI. PHYSICAL EXAMINATION VITAL SIGNS: As follows: Temperature afebrile, heart rate 77, blood pressure 90/65. HEENT: PERRLA. Extraocular muscles are intact. NECK: Supple. No carotid bruits or thyromegaly. CHEST: Clear to auscultation. HEART: S1 and S2 regular. ABDOMEN: Soft. EXTREMITIES: Clubbing and cyanosis negative. LABORATORY DATA: Blood workup; WBC 7.8, hemoglobin 11.8, hematocrit 37.3 and platelet count 176. Chemistry shows sodium 140, potassium 3.7, chloride 104, carbon dioxide 30, anion gap of 14, BUN 17 and creatinine 0.7. BNP 3,360. IMPRESSION: History of nonischemic cardiomyopathy, systemic lupus erythematosus, patent foramen ovale, atrial septal defect, history of automatic implantable cardioverter-defibrillator, nonischemic cardiomyopathy, ejection fraction of 15 to 20%, most recent echocardiogram shows ejection fraction 15 to 20% while the patient is on Primacor, and fungemia. RECOMMENDATIONS: Continue antibiotics for 4 weeks and then repeat blood culture positive, now discontinue AICD and pacemaker. Resume Primacor dose should be 0.5 mcg/kg/minute. Arrangement has been made. Prescription has given to the patient and faxed to the [employer] to the home health care delivery for Primacor. I will ask the mental health social worker to make arrangement for antibiotics if the patient is taking for 4 weeks. Also, communicated with Dr. Mignon Kahn, [employer] to follow with the patient. Discuss in length with Dr. Estelle Tariq. All arrangement has been made for delivery of the drugs as well as Primacor. Please see my detail previous consult dictated. Once arrangement has made, the patient will be discharged home. Roberto Jones MD
--- NOTE | 2017-06-16 01:44 | DS ---
HISTORY OF PRESENT ILLNESS: Ms. Stephanie Siddiqui is a 51-year-old lady was getting IV antibiotics at home, then on 06/12/2017 late evening 5 p.m., she called me that she do not have more antibiotics, she is supposed to get every 6 hours, and at that moment over the weekend, I was not able to do anything, I told her to go to Emergency Room. She came into Emergency Room, got her IV antibiotics, and her drip was fixed. Next day, the patient was seen by Dr. Luis Metz, antibiotics were fixed, and seen by biometrics technician, Dr. Robert Mejia, drip was fixed and discharged home after doing arrangement. For more detail, see our H and P narrated by my nurse practitioner, . The patient will followup in my office and we will do lab as an outpatient . Estelle Tariq MD
== END 2017-06-13 16:04 | disposition home or self-care (01) ==
LOC: ED 19:26 → INTOOBSV 06-13 00:41 → ERH 06-13 00:41 → 3RSO 06-13 03:15
PROVIDERS: ADMIT Internal Medicine; ATTEND Internal Medicine
DX: I11.0 Hypertensive heart disease with heart failure (principal); I50.33 Acute on chronic diastolic (congestive) heart failure; T80.211A Bloodstream infection due to central venous catheter, initial encounter; M32.9 Systemic lupus erythematosus, unspecified; I42.9 Cardiomyopathy, unspecified; K21.9 Gastro-esophageal reflux disease without esophagitis; J45.909 Unspecified asthma, uncomplicated; F32.9 Major depressive disorder, single episode, unspecified; Q21.1 Atrial septal defect; Z86.711 Personal history of pulmonary embolism; Z76.82 Awaiting organ transplant status; Z95.810 Presence of automatic (implantable) cardiac defibrillator; Z86.73 Personal history of transient ischemic attack (TIA), and cerebral infarction without residual deficits; Z87.891 Personal history of nicotine dependence; Y84.8 Other medical procedures as the cause of abnormal reaction of the patient, or of later complication, without mention of misadventure at the time of the procedure
CPT/HCPCS: 36415; 71045; 80053; 82550; 82803; 83880; 84484; 85025; 85610; 87040; 93005; 96374; 96375; 99283; G0378; J0290; J1170; J2248; J2260; J2270; J2405

== ENCOUNTER 2017-07-13 19:13 | Emergency (ER) | payer MEDICAID, OTHER ==
[2017-07-13 19:13] VITALS: PULSE 98; BMI 14.5
[2017-07-13 19:22] VITALS: RESP 18; TEMP 98.2
[2017-07-13] MEDS ORDERED: Oxycodone/Acetaminophen 2.5/325 mg Tab PO STA (20:02)
--- NOTE | 2017-07-13 20:10 | ED PDOC ---
Arrival/HPI - General Chief Complaint: Flu-like Symptoms Time Seen by Provider: 07/13/17 19:23 Historian: Patient - History of Present Illness Narrative History of Present Illness (Text): 07/13/17 20:06 52 year old female who is on a heart transplant list, whose history includes PIC line which she receives IV Milrinone through for CHF, presents to the Emergency department complaining of generally not feeling well. Patient reports she was admitted here on 05/20/17 for an infection of her PIC line. Patient has been receiving IV antibiotics since then, but has ran out of antibiotics approximately 7-10 days ago. Patient believes the infection may be back and is also asking for IV morphine for her body pains. Patient denies any fever, chills , chest pain, shortness of breath, nausea, vomiting, diarrhea, urinary symptoms , back pain, neck pain, headache, dizziness, or any other complaints. Time/Duration: > week Symptom Onset: Gradual Symptom Course: Unchanged Context: Home Past Medical History - Provider Review Nursing Documentation Reviewed: Yes - Past History Past History: Non-Contributing - Infectious Disease Hx of Infectious Diseases: None - Tetanus Immunization Tetanus Immunization: Unknown - Past Medical History Past Medical History: Non-Contributing - Cardiac Hx Pacemaker: No - Pulmonary Hx Respiratory Disorders: Yes (pe) Hx Asthma: Yes Hx Pneumonia: Yes Other/Comment: h/o intubation,H/O + PPD - Neurological Hx Neurological Disorder: Yes HX Cerebrovascular Accident: Yes (X 2 ,16 ys ago, no residual) Hx Dizziness: Yes - HEENT Hx HEENT Disorder: Yes (eyeglasses, seasonal allergies) - Renal Hx Renal Disorder: No - Endocrine/Metabolic Hx Endocrine Disorders: Yes Hx Systemic Lupus Erythematosus: Yes - Hematological/Oncological Hx Cancer: No - Integumentary Hx Dermatological Disorder: Yes (SCARRING UNDER THE BREAST) - Musculoskeletal/Rheumatological Hx Musculoskeletal Disorders: Yes Hx Falls: Yes - Gastrointestinal Hx Gastrointestinal Disorders: Yes Hx Gastroesophageal Reflux: Yes - Genitourinary/Gynecological Hx Genitourinary Disorders: Yes (NON-MALIGNANT BREAST CALCIFICIATION) Other/Comment: UTERINE FIBROID - Psychiatric Hx Psychophysiologic Disorder: Yes (H/O SMOKING CIGARETTES 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) Hx Anxiety: Yes Hx Depression: Yes Hx Panic Disorder: Yes Hx Substance Use: No - Past Surgical History Past Surgical History: No Previous - Surgical History Hx Mastectomy: No - Anesthesia Hx Anesthesia: Yes Hx Anesthesia Reactions: No Hx Malignant Hyperthermia: No - Suicidal Assessment Feels Threatened In Home Enviroment: No Family/Social History - Physician Review Nursing Documentation Reviewed: Yes Family/Social History: Unknown Family HX Smoking Status: Former Smoker Hx Alcohol Use: Yes (SOCIALLY QUIT) Hx Substance Use: No Hx Substance Use Treatment: No Allergies/Home Meds Allergies/Adverse Reactions: Allergies tramadol [From Ultram] Adverse Reaction (Unknown, Verified 05/30/17 16:34) NAUSEA Home Medications: Home Meds Medication Instructions Recorded Confirmed Warfarin [Coumadin] 2 mg PO DAILY 11/03/15 05/30/17 Milrinone 20mg/100ml D5W [Primacor 3.1 rc .ROUTE CONT 12/04/16 05/30/17 20mg/100ml D5W] Cholecalciferol (Vitamin D3) 1 tab PO DAILY 03/09/17 05/30/17 [Vitamin D3] Potassium Chloride [Klor-Con] 20 meq PO DAILY 03/09/17 05/30/17 Lisinopril [Zestril] 2.5 mg PO DAILY 05/06/17 05/30/17 Famotidine 20 mg PO BID 05/30/17 05/30/17 Metoprolol 25 mg PO HS 05/30/17 05/30/17 Xanax 0.25 mg PO QID PRN 05/30/17 05/30/17 Hydrocortisone [Cortef] 20 mg PO BID 06/03/17 06/03/17 Review of Systems - Physician Review All systems were reviewed & negative as marked: Yes - Review of Systems Constitutional: Normal Eyes: Normal ENT: Normal Respiratory: Normal Cardiovascular: Normal Gastrointestinal: Normal Genitourinary Female: Normal Musculoskeletal: Myalgias Skin: Normal Neurological: Normal Endocrine: Normal Hemo/Lymphatic: Normal Psychiatric: Normal Physical Exam Vital Signs Reviewed: Yes Vital Signs Temp Pulse Resp BP Pulse Ox 07/13/17 19:18 98.2 F 95 H 18 136/63 99 Temperature: Afebrile Blood Pressure: Normal Pulse: Tachycardic Respiratory Rate: Normal Appearance: Positive for: Well-Appearing, Non-Toxic, Comfortable Pain Distress: None Mental Status: Positive for: Alert and Oriented X 3 - Systems Exam Head: Present: Atraumatic, Normocephalic Pupils: Present: PERRL Extroacular Muscles: Present: EOMI Conjunctiva: Present: Normal Mouth: Present: Moist Mucous Membranes Neck: Present: Normal Range of Motion. No: JVD Respiratory/Chest: Present: Clear to Auscultation, Good Air Exchange. No: Respiratory Distress, Accessory Muscle Use, Rales Cardiovascular: Present: Regular Rate and Rhythm, Normal S1, S2, Other (no evidence of CHF). No: Murmurs Abdomen: Present: Normal Bowel Sounds. No: Tenderness, Distention, Peritoneal Signs Back: Present: Normal Inspection Upper Extremity: Present: Normal Inspection. No: Cyanosis, Edema Lower Extremity: Present: Normal Inspection. No: Edema Neurological: Present: GCS=15, CN II-XII Intact, Speech Normal Skin: Present: Warm, Dry, Normal Color. No: Rashes Psychiatric: Present: Alert, Oriented x 3, Normal Insight, Normal Concentration Medical Decision Making ED Course and Treatment: 07/13/17 20:12 Impression: 52 year old female presents to the Emergency department complaining of generally not feeling well and running out of her IV antibiotics. Differential Diagnosis included but are not limited to: influenza vs. sepsis Plan: -- Chest xray -- EKG -- Blood culture, urine culture -- Urinalysis -- VBG -- Labs -- Percocet, Zofran -- Rapid influenza test -- Reassess and disposition Prior Visits: Notes and results from previous visits were reviewed. Patient was last seen in the emergency department on 06/12/17, was diagnosed with CHF, CHF exacerbation, Lupus, and Line sepsis, and was hospitalized. Patient was also seen on 05/30/17 , was diagnosed with a viral infection, and was hospitalized. Progress Notes: 07/13/17 23:15 Chest xray: Stable, when compared to film from 06/12/17, patient has cardiomegaly, but no CHF , as read by me. EKG: Ordered, reviewed, and independently interpreted the EKG. Rate : 68 BPM Rhythm : NSR Interpretation : 1st degree block, left axis deviation, prolonged QT - Lab Interpretations Lab Results: 07/13/17 20:20 07/13/17 20:20 Lab Results 07/13/17 22:49: Urine Color Yellow, Urine Appearance Clear, Urine pH 6.0, Ur Specific Sh[place]ler 1.020, Urine Protein Negative, Urine Glucose (UA) Negative, Urine Ketones Negative, Urine Blood Negative, Urine Nitrate Negative, Urine Bilirubin Negative, Urine Urobilinogen 0.2, Ur Leukocyte Esterase Negative 07/13/17 20:20: Sodium 145, Chloride 107, Potassium 3.8, Carbon Dioxide 26, Anion Gap 16, BUN 17, Creatinine 0.9, Est GFR ( Amer) > 60, Est GFR (Non- Af Amer) > 60, Random Glucose 116 H, Calcium 8.6, Total Bilirubin 0.2, AST 22, ALT 28, Alkaline Phosphatase 78, NT-Pro-B Natriuret Pep 2130 H, Total Protein 7.3, Albumin 3.7, Globulin 3.6, Albumin/Globulin Ratio 1.0 L 07/13/17 20:20: pO2 69 H, VBG pH 7.37, VBG pCO2 49.0, VBG HCO3 28.3 H, VBG Total CO2 29.8 H, VBG O2 Sat (Calc) 95.8 H, VBG Base Excess 2.2 H, VBG Potassium 3.8, Sodium 142.0, Chloride 108.0 H, Glucose 105, Lactate 1.0, FiO2 21.0, Venous Blood Potassium 3.8 07/13/17 20:20: PT 47.2 H, INR 4.02 H* 07/13/17 20:20: WBC 7.4, RBC 4.51, Hgb 12.0, Hct 39.0, MCV 86.5, MCH 26.6, MCHC 30.8 L, RDW 15.6 H, Plt Count 223, MPV 11.2 H, Gran % 74.3 H, Lymph % (Auto) 16.8 L, [place] % (Auto) 8.4 H, Eos % (Auto) 0.4 L, Baso % (Auto) 0.1, Gran # 5.51 , Lymph # (Auto) 1.3, [place] # (Auto) 0.6, Eos # (Auto) 0.0, Baso # (Auto) 0.01 07/13/17 20:20: Influenza Typ A,B (EIA) Negative for flu a/b - RAD Interpretation Radiology Orders: 07/13/17 23:05 CHEST TWO VIEWS (PA/LAT) [RAD] Stat - Medication Orders Current Medication Orders: Discontinued Medications Ondansetron HCl (Zofran Odt) 4 mg PO STAT STA Stop: 07/13/17 20:03 Last Admin: 07/13/17 20:39 Dose: 4 mg Oxycodone/Acetaminophen (Percocet 2.5/325 Mg Tab) 1 tab PO STAT STA Stop: 07/13/17 20:03 Last Admin: 07/13/17 20:39 Dose: 1 tab - PA / COLD SAW OPERATOR / Resident Statement MD/DO has reviewed & agrees with the documentation as recorded. - Scribe Statement The provider has reviewed the documentation as recorded by the Gladis Stephens Provider Scribe Attestation: All medical record entries made by the Scribe were at my direction and personally dictated by me. I have reviewed the chart and agree that the record accurately reflects my personal performance of the history, physical exam, medical decision making, and the department course for this patient. I have also personally directed, reviewed, and agree with the discharge instructions and disposition. Disposition/Present on Arrival - Present on Arrival Any Indicators Present on Arrival: No History of DVT/PE: No History of Uncontrolled Diabetes: No Urinary Catheter: No History of Decub. Ulcer: No History Surgical Site Infection Following: None - Disposition Have Diagnosis and Disposition been Completed?: Yes Diagnosis: Elevated INR, Malaise and fatigue Disposition: HOME/ ROUTINE Disposition Time: 23:17 Patient Plan: Discharge Condition: GOOD Discharge Instructions (ExitCare): Fatigue (ED), Weakness (ED), Elevated INR ( ED) Additional Instructions: Mrs Karan Siddiqui- Hilario that you are not feeling well. It is not clear why you are experiencing this. Please follow up with your regular physicians. Return to us if worse or new symptoms occur. Hold your coumadin/warfarin for 3 days. Andrez- Dr. Jah Jamison Referrals: Ilia Maxwell MD [Primary Care Provider] - Follow up with primary Forms: [employer] (Croatian)
[2017-07-13 20:46] LABS: VENOUS BLOOD GAS BASE EXCESS 2.2 mmol/L (0.0-2.0); VENOUS BLOOD GAS PO2 69 mm/Hg (30-55); VENOUS BLOOD PH 7.37 (7.32-7.43)
[2017-07-13 20:47] LABS: BASO # 0.01 K/mm3 (0.0-2.0); BASO % 0.1 % (0.0-3.0); EOS % 0.4 % (1.5-5.0); GRAN # 5.51 (1.4-6.5); GRAN % 74.3 % (50.0-68.0); LYMPH # 1.3 (1.2-3.4); LYMPH % 16.8 % (22.0-35.0); MEAN CELL VOLUME 86.5 fl (80.0-105.0); MEAN CORPUSCULAR HEMOGLOBIN 26.6 pg (25.0-35.0); MEAN CORPUSCULAR HGB CONC 30.8 g/dl (31.0-37.0); MEAN PLATELET VOLUME 11.2 fl (7.0-11.0); MONO # 0.6 (0.1-0.6); MONO % 8.4 % (1.0-6.0); RBC 4.51 10^6/uL (3.5-6.1); RED CELL DISTRIBUTION WIDTH 15.6 % (11.5-14.5); WHITE BLOOD COUNT 7.4 10^3/ul (4.5-11.0)
[2017-07-13 20:57] LABS: ALBUMIN 3.7 g/dL (3.0-4.8); ALT/SGPT 28 U/L (7-56); AST/SGOT 22 U/L (14-36); BLOOD UREA NITROGEN 17 mg/dL (7-21); CALCIUM 8.6 mg/dL (8.4-10.5); GFR AFRICAN-AMERICAN > 60; GFR NON-AFRICAN AMERICAN > 60
[2017-07-13 20:59] LABS: PROTHROMBIN TIME 47.2 SECONDS (9.4-12.5)
[2017-07-13 21:01] LABS: INR 4.02 (0.93-1.08)
[2017-07-13 21:08] LABS: B-TYPE NATRIURETIC PEPTIDE 2130 pg/mL (0-450)
[2017-07-13 23:05] LABS: URINE BILIRUBIN NEGATIVE (NEGATIVE); URINE BLOOD NEGATIVE (NEGATIVE); URINE GLUCOSE (UA) NEGATIVE (NEGATIVE); URINE LEUKOCYTE ESTERASE NEGATIVE Leu/uL (NEGATIVE); URINE NITRATE NEGATIVE (NEGATIVE); URINE PROTEIN NEGATIVE mg/dL (<30 mg/dL); URINE UROBILINOGEN 0.2 E.U./dL (<1 E.U./dL)
[2017-07-13 23:08] LABS: URINE APPEARANCE CLEAR (CLEAR); URINE COLOR YELLOW (YELLOW)
[2017-07-14 04:41] VITALS: PULSE 82
[2017-07-14 04:44] VITALS: BP 103/68; O2SAT 99
--- NOTE | 2017-07-14 10:11 | RAD ---
HISTORY: "Dont Feel Well" COMPARISON: 06/12/2017 TECHNIQUE: Chest PA and lateral FINDINGS: LUNGS: No active pulmonary disease. PLEURA: No significant pleural effusion identified. No pneumothorax apparent. CARDIOVASCULAR: Moderate cardiomegaly. Pacemaker and external defibrillator OSSEOUS STRUCTURES: No significant abnormalities. VISUALIZED UPPER ABDOMEN: Normal. OTHER FINDINGS: None. IMPRESSION: No active disease.
--- NOTE | 2017-07-14 18:14 | CARD ---
APPROVED REPORT EKG Measurement Heart [id number] <Conclusion> Sinus rhythm with 1st degree AV block Possible Left atrial enlargement Left axis deviation Inferior infarct, age undetermined Prolonged QT Abnormal ECG
== END 2017-07-14 00:05 | disposition home or self-care (01) ==
LOC: ED 19:13
DX: R53.81 Other malaise (principal); R53.83 Other fatigue; R79.1 Abnormal coagulation profile; M32.9 Systemic lupus erythematosus, unspecified; Z87.891 Personal history of nicotine dependence; Z86.73 Personal history of transient ischemic attack (TIA), and cerebral infarction without residual deficits

== ENCOUNTER 2017-08-12 15:19 | Emergency (ER) | payer MEDICAID, MEDICARE, OTHER ==
[2017-08-12 15:20] VITALS: PULSE 98; BMI 14.5
[2017-08-12 15:44] VITALS: TEMP 97.6
[2017-08-12] MEDS ORDERED: Sodium Chloride 0.9% 500 ML IV STA (16:06)
--- NOTE | 2017-08-12 16:26 | ED PDOC ---
Arrival/HPI - General Chief Complaint: Shortness Of Breath Time Seen by Provider: 08/12/17 15:38 Historian: Patient - History of Present Illness Narrative History of Present Illness (Text): 08/12/17 16:07 52 yo female with h/o Cardiomyopathy s/p AICD, SLE, CVA (no residual) presents to the ED c/o generalized weakness and bodyaches. She states that has a Pacemaker Debrillator and the RN that checks here vitals and weight instructed her to take an extra pill of Lasix. Once she took the second does she started feeling weak with bodyaches. She got nurse and felt a little shortness of breathe. No chest pain or palpitations. She's on a milronone drip. No cough or fever. PMD: Dr. Maxwell Processing Supervisor: Mignon Spencer Past Medical History - Provider Review Nursing Documentation Reviewed: Yes - Travel History Have you recently traveled outside [place] w/in the past 3 mons?: Yes - Past History Past History: Non-Contributing - Infectious Disease Hx of Infectious Diseases: None - Tetanus Immunization Tetanus Immunization: Unknown - Past Medical History Past Medical History: Non-Contributing - Cardiac Other/Comment: Cardiomyopathy. Heart transplant list - Pulmonary Hx Respiratory Disorders: Yes (pe) Hx Asthma: Yes Hx Pneumonia: Yes Other/Comment: h/o intubation,H/O + PPD - Neurological Hx Neurological Disorder: Yes HX Cerebrovascular Accident: Yes (X 2 ,16 ys ago, no residual) Hx Dizziness: Yes - HEENT Hx HEENT Disorder: Yes (eyeglasses, seasonal allergies) - Renal Hx Renal Disorder: No - Endocrine/Metabolic Hx Endocrine Disorders: Yes Hx Systemic Lupus Erythematosus: Yes - Hematological/Oncological Hx Cancer: No - Integumentary Hx Dermatological Disorder: Yes (SCARRING UNDER THE BREAST) - Musculoskeletal/Rheumatological Hx Musculoskeletal Disorders: Yes Hx Falls: Yes - Gastrointestinal Hx Gastrointestinal Disorders: Yes Hx Gastroesophageal Reflux: Yes - Genitourinary/Gynecological Hx Genitourinary Disorders: Yes (NON-MALIGNANT BREAST CALCIFICIATION) Other/Comment: UTERINE FIBROID - Psychiatric Hx Psychophysiologic Disorder: Yes (H/O SMOKING CIGARETTES 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) Hx Anxiety: Yes Hx Depression: Yes Hx Panic Disorder: Yes Hx Substance Use: No - Past Surgical History Past Surgical History: No Previous - Surgical History Hx Mastectomy: No - Anesthesia Hx Anesthesia: Yes Hx Anesthesia Reactions: No Hx Malignant Hyperthermia: No - Suicidal Assessment Feels Threatened In Home Enviroment: No Family/Social History - Physician Review Nursing Documentation Reviewed: Yes Family/Social History: No Known Family HX Smoking Status: Former Smoker Hx Alcohol Use: Yes (SOCIALLY QUIT) Hx Substance Use: No Hx Substance Use Treatment: No Allergies/Home Meds Allergies/Adverse Reactions: Allergies tramadol [From Ultram] Adverse Reaction (Unknown, Verified 05/30/17 16:34) NAUSEA Home Medications: Home Meds Medication Instructions Recorded Confirmed Warfarin [Coumadin] 1 mg PO DAILY 11/03/15 08/12/17 Cholecalciferol (Vitamin D3) 1 tab PO DAILY 03/09/17 08/12/17 [Vitamin D3] Potassium Chloride [Klor-Con] 20 meq PO DAILY 03/09/17 08/12/17 Lisinopril [Zestril] 2.5 mg PO DAILY 05/06/17 08/12/17 Hydrocortisone [Cortef] 20 mg PO BID 06/03/17 08/12/17 ALPRAZolam [Xanax] 0.25 mg PO QID PRN 08/12/17 08/12/17 Albuterol HFA [Ventolin HFA 90 2 puff NEB Q4 PRN 08/12/17 08/12/17 mcg/actuation (8 g)] Amiodarone [Cordarone] 200 mg PO DAILY 08/12/17 08/12/17 Famotidine [Pepcid] 20 mg PO DAILY 08/12/17 08/12/17 Folic Acid [Folic Acid] 1 mg PO DAILY 08/12/17 08/12/17 Metoprolol Succinate [Toprol XL] 25 mg PO QPM 08/12/17 08/12/17 Milrinone 20mg/100ml D5W [Primacor 20 mg IV DAILY 08/12/17 08/12/17 20mg/100ml D5W] Review of Systems - Physician Review All systems were reviewed & negative as marked: Yes - Review of Systems Constitutional: Normal Eyes: Normal ENT: Normal Respiratory: SOB. absent: Cough, Sputum Cardiovascular: Normal. absent: Chest Pain, Syncope Gastrointestinal: Normal Genitourinary Female: Normal Musculoskeletal: Myalgias. absent: Arthralgias, Back Pain, Neck Pain Skin: Normal. absent: Rash Neurological: Normal Endocrine: Normal Hemo/Lymphatic: Normal Psychiatric: Normal Physical Exam Vital Signs Reviewed: Yes Vital Signs Temp Pulse Resp BP Pulse Ox 08/12/17 18:30 68 18 102/65 97 08/12/17 18:05 68 17 97/64 L 97 08/12/17 17:35 74 18 113/79 98 08/12/17 17:05 66 18 115/76 97 08/12/17 16:05 18 08/12/17 15:20 97.6 F 62 18 93/41 L 93 L Temperature: Afebrile Blood Pressure: Hypotensive Pulse: Regular Respiratory Rate: Normal Appearance: Positive for: Well-Appearing, Non-Toxic, Comfortable Pain Distress: None Mental Status: Positive for: Alert and Oriented X 3 - Systems Exam Head: Present: Atraumatic, Normocephalic Pupils: Present: PERRL Extroacular Muscles: Present: EOMI Conjunctiva: Present: Normal Mouth: Present: Moist Mucous Membranes Neck: Present: Normal Range of Motion Respiratory/Chest: Present: Clear to Auscultation, Good Air Exchange. No: Respiratory Distress, Accessory Muscle Use, Wheezes, Retracting, Rhonchi, Tachypneic Cardiovascular: Present: Regular Rate and Rhythm, Normal S1, S2. No: Murmurs Abdomen: Present: Normal Bowel Sounds. No: Tenderness, Distention, Peritoneal Signs Back: Present: Normal Inspection Upper Extremity: Present: Normal Inspection. No: Cyanosis, Edema Lower Extremity: Present: Normal Inspection. No: Edema Neurological: Present: GCS=15, CN II-XII Intact, Speech Normal Skin: Present: Warm, Dry, Normal Color. No: Rashes Psychiatric: Present: Alert, Oriented x 3, Normal Insight, Normal Concentration Medical Decision Making ED Course and Treatment: 08/12/17 16:27 52 yo female with weakness and bodyaches after taking lasix extra dose; now hypotensive. -- IVF -- Labs -- Toradol -- Reevaluate and disposition 08/12/17 17:32 NSR at 63 bpm with LAD, TWI V6, prolonged QT, No change from previous EKG on 07/13 BP improved. Patient no longer having symptoms. I discussed the case with her Processing Supervisor Dr. Mignon Kahn who agrees with plan to have her follow up with him. He states she already has an apt next. She agrees to follow up as scheduled with Dr. Mignon Kahn and her PMD. She will return to the ED if symptoms worsen or any other concern. - Lab Interpretations Lab Results: 08/12/17 16:45 08/12/17 17:20 Lab Results 08/12/17 17:20: Sodium 142, Potassium 3.5 L, Chloride 103, Carbon Dioxide 29, Anion Gap 14, BUN 17, Creatinine 0.9, Est GFR ( Amer) > 60, Est GFR (Non- Af Amer) > 60, Random Glucose 97, Calcium 8.4, Lactate Dehydrogenase 516, Total Creatine Kinase 35, Troponin I < 0.01 D, NT-Pro-B Natriuret Pep 1580 H 08/12/17 17:20: PT 25.1 H, INR 2.17 H, APTT 41.1 H 08/12/17 16:45: WBC 5.2 D, RBC 4.56, Hgb 12.2, Hct 39.5, MCV 86.6, MCH 26.8, MCHC 30.9 L, RDW 15.4 H, Plt Count 229, MPV 11.2 H, Gran % 60.6, Lymph % (Auto) 26.6, [place] % (Auto) 11.5 H, Eos % (Auto) 1.1 L, Baso % (Auto) 0.2, Gran # 3.17, Lymph # (Auto) 1.4, [place] # (Auto) 0.6, Eos # (Auto) 0.1, Baso # (Auto) 0.01 - RAD Interpretation Radiology Orders: 08/12/17 16:06 CHEST PORTABLE [RAD] Stat - Medication Orders Current Medication Orders: Discontinued Medications Sodium Chloride (Sodium Chloride 0.9%) 500 mls @ 999 mls/hr IV .Q31M STA Stop: 08/12/17 16:36 Last Admin: 08/12/17 16:50 Dose: 999 mls/hr eMAR Start Stop Document 08/12/17 16:50 EWO (Rec: 08/12/17 16:51 EWO [id number]) Intravenous Solution Start Date 08/12/17 Start Time 16:51 End Date 08/12/17 End time 17:21 Total Infusion Time 30 Ketorolac Tromethamine (Toradol) 15 mg IVP STAT STA Stop: 08/12/17 16:07 Last Admin: 08/12/17 16:49 Dose: 15 mg MAR Pain Assessment Document 08/12/17 16:49 EW (Rec: 08/12/17 16:50 [facility] [id number]) Pain Reassessment Is this a pain reassessment? No Sleep Is patient sleeping during reassessment? No Presence of Pain Presence of Pain Yes Pain Scale Used Pain Scale Used Numeric Location Pain Location Body Site Generalized Description Description Constant Intensity of Pain at present 4 Pain Behavior Moaning IVP Administration Document 08/12/17 16:49 EWO (Rec: 08/12/17 16:50 [facility] [id number]) Charges for Administration # of IVP Administrations 1 Potassium Chloride (K-Dur 20 Meq Er Tab) 40 meq PO STAT STA Stop: 08/12/17 18:47 Last Admin: 08/12/17 18:55 Dose: 40 meq Disposition/Present on Arrival - Present on Arrival Any Indicators Present on Arrival: No History of DVT/PE: No History of Uncontrolled Diabetes: No Urinary Catheter: No History of Decub. Ulcer: No History Surgical Site Infection Following: None - Disposition Have Diagnosis and Disposition been Completed?: Yes Diagnosis: Weakness Disposition: HOME/ ROUTINE Disposition Time: 18:57 Patient Plan: Discharge Condition: IMPROVED Discharge Instructions (ExitCare): Weakness (ED) Additional Instructions: Ms Russo, thank you for letting us take care of you today. Your provider was Dr. Perez. You were treated for Weakness. The emergency medical care you received today was directed at your acute symptoms. If you were prescribed any medication, please fill it and take as directed. It may take several days for your symptoms to resolve. Return to the Emergency Department if your symptoms worsen, do not improve, or if you have any other problems. Make sure to follow up with Dr. Mignon Kahn next week as scheduled. Please contact your doctor or call one of the physicians/clinics you have been referred to that are listed on the Patient Visit Information form that is included in your discharge packet. Bring any paperwork you were given at discharge with you along with any medications you are taking to your follow up visit. Our treatment cannot replace ongoing medical care by a primary care provider (PCP) outside of the emergency department. Thank you for allowing the [facility] team to be part of your care today. If you had an X-Ray or CT scan: A Radiologist will review the ED reading if any change in treatment is needed we will contact you. If you had a blood, urine, or wound culture: It will take several days for the results, if any change in treatment is needed we will contact you. If you had an STI test: It will take 48 hours for the results. Please call after 1 week if you have not heard back. Prescriptions: Potassium Chloride [K-Dur 20 mEq ER Tab] 20 meq PO DAILY #14 tab Referrals: Kashif Kahn MD [Medical Doctor] - Follow up with primary Ilia Maxwell MD [Medical Doctor] - Follow up with primary Forms: [employer] (U[place]ayan), WORK NOTE
[2017-08-12 17:04] LABS: BASO # 0.01 K/mm3 (0.0-2.0); BASO % 0.2 % (0.0-3.0); EOS # 0.1 (0.0-0.7); EOS % 1.1 % (1.5-5.0); GRAN # 3.17 (1.4-6.5); GRAN % 60.6 % (50.0-68.0); HEMOGLOBIN 12.2 g/dL (12.0-16.0); LYMPH # 1.4 (1.2-3.4); LYMPH % 26.6 % (22.0-35.0); MEAN CELL VOLUME 86.6 fl (80.0-105.0); MEAN CORPUSCULAR HEMOGLOBIN 26.8 pg (25.0-35.0); MEAN CORPUSCULAR HGB CONC 30.9 g/dl (31.0-37.0); MEAN PLATELET VOLUME 11.2 fl (7.0-11.0); MONO # 0.6 (0.1-0.6); MONO % 11.5 % (1.0-6.0); RBC 4.56 10^6/uL (3.5-6.1); RED CELL DISTRIBUTION WIDTH 15.4 % (11.5-14.5); WHITE BLOOD COUNT 5.2 10^3/ul (4.5-11.0)
[2017-08-12 17:09] VITALS: O2SAT 97
[2017-08-12 18:02] LABS: INR 2.17 (0.93-1.08); PARTIAL THROMBOPLASTIN TIME 41.1 Seconds (25.1-36.5); PROTHROMBIN TIME 25.1 SECONDS (9.4-12.5)
[2017-08-12 18:03] LABS: BLOOD UREA NITROGEN 17 mg/dL (7-21); CALCIUM 8.4 mg/dL (8.4-10.5); GFR AFRICAN-AMERICAN > 60; GFR NON-AFRICAN AMERICAN > 60
[2017-08-12 18:19] VITALS: PULSE 68
[2017-08-12 18:44] LABS: B-TYPE NATRIURETIC PEPTIDE 1580 pg/mL (0-450); TROPONIN I < 0.01 ng/mL
[2017-08-12] MEDS ORDERED: Potassium Chloride 20 mEq ER Tab PO STA (18:46)
[2017-08-12 18:57] VITALS: BP 102/65; RESP 18
--- NOTE | 2017-08-12 22:00 | CARD ---
APPROVED REPORT EKG Measurement Heart [id number] <Conclusion> Sinus rhythm with 1st degree AV block Possible Left atrial enlargement Left axis deviation Inferior infarct, age undetermined T wave abnormality, consider lateral ischemia Prolonged QT Abnormal ECG
--- NOTE | 2017-08-13 09:52 | RAD ---
HISTORY: Shortness of breath COMPARISON: 07/13/2017 FINDINGS: LUNGS: No active pulmonary disease. PLEURA: No significant pleural effusion identified, no pneumothorax apparent. CARDIOVASCULAR: Cardiomegaly. No evidence of acute, significant cardiovascular disease. Position/ configuration of pacemaker Satisfactory.PICC line in satisfactory position OSSEOUS STRUCTURES: No significant abnormalities. VISUALIZED UPPER ABDOMEN: Normal. OTHER FINDINGS: None. IMPRESSION: No active disease. No significant interval change compared to the prior examination(s).
== END 2017-08-12 19:04 | disposition home or self-care (01) ==
LOC: ED 15:19
DX: R53.1 Weakness (principal); I42.9 Cardiomyopathy, unspecified; M32.9 Systemic lupus erythematosus, unspecified; Z86.73 Personal history of transient ischemic attack (TIA), and cerebral infarction without residual deficits; Z95.810 Presence of automatic (implantable) cardiac defibrillator; Z87.891 Personal history of nicotine dependence
CPT/HCPCS: 71045; 80048; 82550; 83615; 83880; 84484; 85025; 85610; 85730; 93005; 96374; 99284; J1885; J7040

== ENCOUNTER 2017-09-01 17:01 | Emergency (ER) | payer MEDICARE, MEDICAID ==
[2017-09-01 17:01] VITALS: PULSE 98
[2017-09-01 18:11] VITALS: BMI 33.6
--- NOTE | 2017-09-01 18:28 | ED PDOC ---
Arrival/HPI - General Time Seen by Provider: 09/01/17 17:56 Historian: Patient - History of Present Illness Narrative History of Present Illness (Text): 09/01/17 18:19 A 52 year old female, whose past medical history includes lupus, cardiomyopathy and CHF on primacor continuous infusion, presents to the emergency department for evaluation. Patient reports she "does not feel well." Patient was septic approximately 3 months ago which required her to be placed on IV antibiotics. She completed her course of antibiotics a few weeks ago. Patient states she is ill and believes her infection is back. Patients secondary complaint is left breast pain. She reports she had a mammogram a few weeks ago which showed abnormal findings. Patient has a follow up ultrasound on 09/07/17. Patient denies any fever, chills, nausea, vomiting, abdominal pain, chest pain, shortness of breath or any other complaints. Patient reports her PMDs are located in [place] but she is seen by Dr. Chandni toney at [facility] – [place]. Past Medical History - Provider Review Nursing Documentation Reviewed: Yes - Past History Past History: Non-Contributing - Infectious Disease Hx of Infectious Diseases: None - Tetanus Immunization Tetanus Immunization: Unknown - Past Medical History Past Medical History: Non-Contributing - Cardiac Other/Comment: Cardiomyopathy. Heart transplant list - Pulmonary Hx Respiratory Disorders: Yes (pe) Hx Asthma: Yes Hx Pneumonia: Yes Other/Comment: h/o intubation,H/O + PPD - Neurological Hx Neurological Disorder: Yes HX Cerebrovascular Accident: Yes (X 2 ,16 ys ago, no residual) Hx Dizziness: Yes - HEENT Hx HEENT Disorder: Yes (eyeglasses, seasonal allergies) - Renal Hx Renal Disorder: No - Endocrine/Metabolic Hx Endocrine Disorders: Yes Hx Systemic Lupus Erythematosus: Yes - Hematological/Oncological Hx Cancer: No - Integumentary Hx Dermatological Disorder: Yes (SCARRING UNDER THE BREAST) - Musculoskeletal/Rheumatological Hx Musculoskeletal Disorders: Yes Hx Falls: Yes - Gastrointestinal Hx Gastrointestinal Disorders: Yes Hx Gastroesophageal Reflux: Yes - Genitourinary/Gynecological Hx Genitourinary Disorders: Yes (NON-MALIGNANT BREAST CALCIFICIATION) Other/Comment: UTERINE FIBROID - Psychiatric Hx Psychophysiologic Disorder: Yes (H/O SMOKING CIGARETTES 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) Hx Anxiety: Yes Hx Depression: Yes Hx Panic Disorder: Yes Hx Substance Use: No - Past Surgical History Past Surgical History: No Previous - Surgical History Hx Mastectomy: No - Anesthesia Hx Anesthesia: Yes Hx Anesthesia Reactions: No Hx Malignant Hyperthermia: No - Suicidal Assessment Feels Threatened In Home Enviroment: No Family/Social History - Physician Review Nursing Documentation Reviewed: Yes Family/Social History: No Known Family HX Smoking Status: Former Smoker Hx Alcohol Use: Yes (SOCIALLY QUIT) Hx Substance Use: No Hx Substance Use Treatment: No Allergies/Home Meds Allergies/Adverse Reactions: Allergies tramadol [From [facility]] Adverse Reaction (Unknown, Verified 05/30/17 16:34) NAUSEA Home Medications: Home Meds Medication Instructions Recorded Confirmed Warfarin [Coumadin] 1 mg PO DAILY 11/03/15 08/12/17 Cholecalciferol (Vitamin D3) 1 tab PO DAILY 03/09/17 08/12/17 [Vitamin D3] Potassium Chloride [Klor-Con] 20 meq PO DAILY 03/09/17 08/12/17 Lisinopril [Zestril] 2.5 mg PO DAILY 05/06/17 08/12/17 Hydrocortisone [Cortef] 20 mg PO BID 06/03/17 08/12/17 ALPRAZolam [Xanax] 0.25 mg PO QID PRN 08/12/17 08/12/17 Albuterol HFA [Ventolin HFA 90 2 puff NEB Q4 PRN 08/12/17 08/12/17 mcg/actuation (8 g)] Amiodarone [Cordarone] 200 mg PO DAILY 08/12/17 08/12/17 Famotidine [Pepcid] 20 mg PO DAILY 08/12/17 08/12/17 Folic Acid [Folic Acid] 1 mg PO DAILY 08/12/17 08/12/17 Metoprolol Succinate [Toprol XL] 25 mg PO QPM 08/12/17 08/12/17 Milrinone 20mg/100ml D5W [Primacor 20 mg IV DAILY 08/12/17 08/12/17 20mg/100ml D5W] Review of Systems - Physician Review All systems were reviewed & negative as marked: Yes - Review of Systems Constitutional: Other ("feeling ill"). absent: Fevers, Night Sweats Respiratory: absent: SOB Cardiovascular: absent: Chest Pain Gastrointestinal: absent: Abdominal Pain, Nausea, Vomiting Physical Exam Vital Signs Temp Pulse Resp BP Pulse Ox 09/01/17 18:54 98.2 F 79 18 118/76 99 Appearance: Positive for: Well-Appearing, Non-Toxic, Comfortable Pain Distress: None Mental Status: Positive for: Alert and Oriented X 3 - Systems Exam Head: Present: Atraumatic, Normocephalic Pupils: Present: PERRL Extroacular Muscles: Present: EOMI Conjunctiva: Present: Normal Mouth: Present: Moist Mucous Membranes Neck: Present: Normal Range of Motion Respiratory/Chest: Present: Clear to Auscultation, Good Air Exchange. No: Respiratory Distress, Accessory Muscle Use Cardiovascular: Present: Regular Rate and Rhythm, Normal S1, S2. No: Murmurs Abdomen: Present: Normal Bowel Sounds. No: Tenderness, Distention, Peritoneal Signs Back: Present: Normal Inspection Upper Extremity: Present: Normal Inspection. No: Cyanosis, Edema Lower Extremity: Present: Normal Inspection. No: Edema Neurological: Present: GCS=15, CN II-XII Intact, Speech Normal Skin: Present: Warm, Dry, Normal Color. No: Rashes Psychiatric: Present: Alert, Oriented x 3, Normal Insight, Normal Concentration Medical Decision Making ED Course and Treatment: 09/01/17 18:19 Impression: A 52 year old female presents for evaluation. Patient reports "feeling ill." Patient notes left breast pain. Plan: -- Chest xray -- EKG -- Labs -- Blood culture -- Influenza A B stat -- Reassess and disposition Progress Notes: Report Date : 09/01/2017 18:31:37 Procedure: Chest xray Dictator : Char Oquendo MD IMPRESSION: No acute findings. No significant interval change. 09/01/17 19:30 EKG shows NSR at 64 BPM with 1st degree AV block, LAD. Interpreted by me. - Lab Interpretations Lab Results: 09/01/17 19:05 09/01/17 20:57 Lab Results 09/01/17 20:57: Sodium 143, Chloride 105, Potassium 3.5 L, Carbon Dioxide 28, Anion Gap 14, BUN 21, Creatinine 0.9, Est GFR ( Amer) > 60, Est GFR (Non- Af Amer) > 60, Random Glucose 113 H, Calcium 9.1, Total Bilirubin 0.2, AST 17, ALT 15, Alkaline Phosphatase 78, Lactate Dehydrogenase 474, Total Creatine Kinase 27 L, Troponin I < 0.01, NT-Pro-B Natriuret Pep 2880 H, Total Protein 7.6 , Albumin 3.7, Globulin 3.9, Albumin/Globulin Ratio 1.0 L 09/01/17 20:57: PT 27.7 H, INR 2.39 H, D-Dimer, Quantitative 400 H 09/01/17 19:05: pO2 49, VBG pH 7.41, VBG pCO2 44.0, VBG HCO3 27.9, VBG Total CO2 29.3 H, VBG O2 Sat (Calc) 90.0 H, VBG Base Excess 2.7 H, VBG Potassium 5.9 H , Sodium 139.0, Chloride 106.0, Glucose 141 H, Lactate 1.4, FiO2 21.0, Venous Blood Potassium 5.9 H 09/01/17 19:05: Influenza Typ A,B (EIA) Negative for flu a/b 09/01/17 19:05: WBC 6.1, RBC 4.91, Hgb 13.0, Hct 41.1, MCV 83.7, MCH 26.5, MCHC 31.6, RDW 15.7 H, Plt Count 257, MPV 10.7, Gran % 75.0 H, Lymph % (Auto) 19.3 L , [place] % (Auto) 5.2, Eos % (Auto) 0.5 L, Baso % (Auto) 0.0, Gran # 4.59, Lymph # (Auto) 1.2, [place] # (Auto) 0.3, Eos # (Auto) 0.0, Baso # (Auto) 0.00 I have reviewed the lab results: Yes - RAD Interpretation Radiology Orders: 09/01/17 18:14 CHEST PORTABLE [RAD] Stat - Medication Orders Current Medication Orders: Discontinued Medications Furosemide (Lasix) 40 mg IVP STAT STA Stop: 09/01/17 21:27 Ketorolac Tromethamine (Toradol) 30 mg IVP STAT STA Stop: 09/01/17 20:31 Last Admin: 09/01/17 20:53 Dose: 30 mg [facility] Pain Assessment Document 09/01/17 20:53 EQ (Rec: 09/01/17 20:53 EQ [facility] [id number]) Pain Reassessment Is this a pain reassessment? No Sleep Is patient sleeping during reassessment? No Presence of Pain Presence of Pain Yes IVP Administration Document 09/01/17 20:53 EQ (Rec: 09/01/17 20:53 EQ [facility] [id number]) Charges for Administration # of IVP Administrations 1 Disposition/Present on Arrival - Present on Arrival Any Indicators Present on Arrival: No History of DVT/PE: No History of Uncontrolled Diabetes: No Urinary Catheter: No History Surgical Site Infection Following: None - Disposition Have Diagnosis and Disposition been Completed?: Yes Diagnosis: Malaise and fatigue, CHF (congestive heart failure), Cardiomyopathy, Breast pain, Hematoma (nontraumatic) of breast Disposition: HOME/ ROUTINE Disposition Time: 21:49 Patient Plan: Discharge Condition: FAIR Discharge Instructions (ExitCare): Heart Failure (ED), Chest Pain (ED), Heart Failure, Adult, Heart Failure, Adult (DC), Fatigue (DC), Common Breast Problems , Cardiomyopathy (DC) Additional Instructions: Stephanie - I am not certain why you feel so fatigued. All of your tests are at baseline except your BNP was a little higher than usual. Follow up with your doctors next week. Return to us if any problems. Best- Dr. Jah Jaimson Referrals: Ilia Maxwell MD [Primary Care Provider] - Follow up with primary
--- NOTE | 2017-09-01 18:33 | RAD ---
HISTORY: Cardiomyopathy, Lupus, Dyspnea COMPARISON: 08/12/2017. FINDINGS: The right PICC line terminates in the SVC. LUNGS: The lungs are well inflated. There is mild pulmonary venous congestion. PLEURA: No significant pleural effusion identified, no pneumothorax apparent. CARDIOVASCULAR: There is stable mild cardiomegaly. There is stable position of left-sided AICD. OSSEOUS STRUCTURES: No significant abnormalities. VISUALIZED UPPER ABDOMEN: Normal. OTHER FINDINGS: None. IMPRESSION: No acute findings. No significant interval change.
[2017-09-01 18:54] VITALS: TEMP 98.2
[2017-09-01 19:17] LABS: EOS % 0.5 % (1.5-5.0); GRAN # 4.59 (1.4-6.5); LYMPH # 1.2 (1.2-3.4); LYMPH % 19.3 % (22.0-35.0); MEAN CELL VOLUME 83.7 fl (80.0-105.0); MEAN CORPUSCULAR HEMOGLOBIN 26.5 pg (25.0-35.0); MEAN CORPUSCULAR HGB CONC 31.6 g/dl (31.0-37.0); MEAN PLATELET VOLUME 10.7 fl (7.0-11.0); MONO # 0.3 (0.1-0.6); MONO % 5.2 % (1.0-6.0); RBC 4.91 10^6/uL (3.5-6.1); RED CELL DISTRIBUTION WIDTH 15.7 % (11.5-14.5); WHITE BLOOD COUNT 6.1 10^3/ul (4.5-11.0)
[2017-09-01 19:18] LABS: VENOUS BLOOD GAS BASE EXCESS 2.7 mmol/L (0.0-2.0); VENOUS BLOOD GAS PO2 49 mm/Hg (30-55); VENOUS BLOOD PH 7.41 (7.32-7.43)
[2017-09-01 21:10] LABS: INR 2.39 (0.93-1.08); PROTHROMBIN TIME 27.7 SECONDS (9.4-12.5)
[2017-09-01 21:16] LABS: ALBUMIN 3.7 g/dL (3.0-4.8); ALT/SGPT 15 U/L (7-56); AST/SGOT 17 U/L (14-36); BLOOD UREA NITROGEN 21 mg/dL (7-21); CALCIUM 9.1 mg/dL (8.4-10.5); GFR AFRICAN-AMERICAN > 60; GFR NON-AFRICAN AMERICAN > 60
[2017-09-01 21:24] LABS: B-TYPE NATRIURETIC PEPTIDE 2880 pg/mL (0-450); TROPONIN I < 0.01 ng/mL
--- NOTE | 2017-09-01 22:56 | ED PDOC ---
Physical Exam Vital Signs Reviewed: Yes Vital Signs Temp Pulse Resp BP Pulse Ox 09/01/17 22:40 82 19 90/62 L 94 L 09/01/17 18:54 98.2 F 79 18 118/76 99 Temperature: Afebrile Blood Pressure: Normal Pulse: Regular Respiratory Rate: Normal Appearance: Positive for: Well-Appearing, Non-Toxic, Comfortable Pain Distress: None Mental Status: Positive for: Alert and Oriented X 3 Medical Decision Making ED Course and Treatment: 09/01/17 22:55: Case endorsed to me by Dr. Jamison. Pending CT results, will reassess and disposition. - Lab Interpretations Lab Results: 09/01/17 19:05 09/01/17 20:57 Lab Results 09/01/17 20:57: Sodium 143, Chloride 105, Potassium 3.5 L, Carbon Dioxide 28, Anion Gap 14, BUN 21, Creatinine 0.9, Est GFR ( Amer) > 60, Est GFR (Non- Af Amer) > 60, Random Glucose 113 H, Calcium 9.1, Total Bilirubin 0.2, AST 17, ALT 15, Alkaline Phosphatase 78, Lactate Dehydrogenase 474, Total Creatine Kinase 27 L, Troponin I < 0.01, NT-Pro-B Natriuret Pep 2880 H, Total Protein 7.6 , Albumin 3.7, Globulin 3.9, Albumin/Globulin Ratio 1.0 L 09/01/17 20:57: PT 27.7 H, INR 2.39 H, D-Dimer, Quantitative 400 H 09/01/17 19:05: pO2 49, VBG pH 7.41, VBG pCO2 44.0, VBG HCO3 27.9, VBG Total CO2 29.3 H, VBG O2 Sat (Calc) 90.0 H, VBG Base Excess 2.7 H, VBG Potassium 5.9 H , Sodium 139.0, Chloride 106.0, Glucose 141 H, Lactate 1.4, FiO2 21.0, Venous Blood Potassium 5.9 H 09/01/17 19:05: Influenza Typ A,B (EIA) Negative for flu a/b 09/01/17 19:05: WBC 6.1, RBC 4.91, Hgb 13.0, Hct 41.1, MCV 83.7, MCH 26.5, MCHC 31.6, RDW 15.7 H, Plt Count 257, MPV 10.7, Gran % 75.0 H, Lymph % (Auto) 19.3 L , [place] % (Auto) 5.2, Eos % (Auto) 0.5 L, Baso % (Auto) 0.0, Gran # 4.59, Lymph # (Auto) 1.2, [place] # (Auto) 0.3, Eos # (Auto) 0.0, Baso # (Auto) 0.00 - RAD Interpretation Radiology Orders: 09/01/17 18:14 CHEST PORTABLE [RAD] Stat 09/01/17 22:38 ANGIO CHEST PE PROTOCOL [CT] Stat - Medication Orders Current Medication Orders: Discontinued Medications Furosemide (Lasix) 40 mg IVP STAT STA Stop: 09/01/17 21:27 Ketorolac Tromethamine (Toradol) 30 mg IVP STAT STA Stop: 09/01/17 20:31 Last Admin: 09/01/17 20:53 Dose: 30 mg MAR Pain Assessment Document 09/01/17 20:53 EQ (Rec: 09/01/17 20:53 EQ [place] [id number]) Pain Reassessment Is this a pain reassessment? No Sleep Is patient sleeping during reassessment? No Presence of Pain Presence of Pain Yes IVP Administration Document 09/01/17 20:53 EQ (Rec: 09/01/17 20:53 EQ [id number] Charges for Administration # of IVP Administrations 1 - Scribe Statement The provider has reviewed the documentation as recorded by the Dishaibmelanie Hedrick Provider Scribe Attestation: All medical record entries made by the Scribe were at my direction and personally dictated by me. I have reviewed the chart and agree that the record accurately reflects my personal performance of the history, physical exam, medical decision making, and the department course for this patient. I have also personally directed, reviewed, and agree with the discharge instructions and disposition. Disposition/Present on Arrival - Present on Arrival Any Indicators Present on Arrival: No History of DVT/PE: No History of Uncontrolled Diabetes: No Urinary Catheter: No History of Decub. Ulcer: No History Surgical Site Infection Following: None - Disposition Diagnosis: Malaise and fatigue, CHF (congestive heart failure), Cardiomyopathy, Breast pain, Hematoma (nontraumatic) of breast Disposition: HOME/ ROUTINE Patient Problems: Current Active Problems Problem Status Onset CHF (congestive heart failure) Acute Hematoma (nontraumatic) of breast Acute Malaise and fatigue Acute Cardiomyopathy Acute Breast pain Acute Condition: FAIR Discharge Instructions (ExitCare): Heart Failure, Adult, Heart Failure, Adult ( DC), Fatigue (DC), Common Breast Problems, Cardiomyopathy (DC), Heart Failure ( ED), Chest Pain (ED) Additional Instructions: Stephanie - I am not certain why you feel so fatigued. All of your tests are at baseline except your BNP was a little higher than usual. Follow up with your doctors next week. Return to us if any problems. Best- Dr. Jah Jamison Referrals: Ilia Maxwell MD [Primary Care Provider] - Follow up with primary
--- NOTE | 2017-09-01 22:58 | ED PDOC ---
Physical Exam Vital Signs Reviewed: Yes Vital Signs Temp Pulse Resp BP Pulse Ox 09/01/17 23:09 90/63 L 09/01/17 22:40 82 19 90/62 L 94 L 09/01/17 18:54 98.2 F 79 18 118/76 99 Temperature: Afebrile Blood Pressure: Normal Pulse: Regular Respiratory Rate: Normal Appearance: Positive for: Well-Appearing, Non-Toxic, Comfortable Pain Distress: None Mental Status: Positive for: Alert and Oriented X 3 Medical Decision Making ED Course and Treatment: 09/01/17 22:57: Case endorsed to me by Dr. Jamison. Pending CT results. Will reassess and disposition. CT Angiography Chest With Intravenous Contrast Dictated and Authenticated by: Aristides Colon MD 09/02/2017 12:56 AM Eastern Time ([place] & [place]) CLINICAL HISTORY: 52 years old, female; Abnormal findings; Abnormal diagnostic tests; Elevated d- dimer; Prior surgery; Surgery date: 6+ months; Surgery type: Pacemaker; Additional info: Positive d- dimer TECHNIQUE: Axial computed tomographic angiography images of the chest with intravenous contrast using pulmonary embolism protocol. All CT scans at this facility use one or more dose reduction techniques, viz.: automated exposure control; ma/kV adjustment per patient size (including targeted exams where dose is matched to indication; i.e. head); or iterative reconstruction technique. MIP reconstructed images were created and reviewed. Coronal and sagittal reformatted images were created and reviewed. CONTRAST: 100 mL of OMNI 350 administered intravenously. COMPARISON: CT - CHEST W/O CONTRAST 2016-07-02 04:12 FINDINGS: Limitations: Motion artifact - mild. Streak artifact - mild. Pulmonary arteries: Enlargement of pulmonary trunk, 3.3 cm. No definite pulmonary embolism. Aorta: No aneurysm. No dissection. Lungs: Minimal atelectasis. No consolidation. Pleural space: No significant effusion. No pneumothorax. Heart: Moderate cardiomegaly. No significant pericardial effusion. Bones/joints: No acute fracture. Soft tissues: Resolution of fluid density lesion within right breast with replacement by fat. Lymph nodes: No pathologically enlarged lymph nodes. Spleen: Multiple calcifications. Tubes, lines and devices: LEFT pacemaker. IMPRESSION: 1. No definite CT evidence of pulmonary embolism. 2. Resolution of fluid density lesion within right breast with replacement by fat. Followup as clinically warranted. 3. Incidental/non-acute findings are described above. - Lab Interpretations Lab Results: 09/01/17 19:05 09/01/17 20:57 Lab Results 09/01/17 20:57: Sodium 143, Chloride 105, Potassium 3.5 L, Carbon Dioxide 28, Anion Gap 14, BUN 21, Creatinine 0.9, Est GFR ( Amer) > 60, Est GFR (Non- Af Amer) > 60, Random Glucose 113 H, Calcium 9.1, Total Bilirubin 0.2, AST 17, ALT 15, Alkaline Phosphatase 78, Lactate Dehydrogenase 474, Total Creatine Kinase 27 L, Troponin I < 0.01, NT-Pro-B Natriuret Pep 2880 H, Total Protein 7.6 , Albumin 3.7, Globulin 3.9, Albumin/Globulin Ratio 1.0 L 09/01/17 20:57: PT 27.7 H, INR 2.39 H, D-Dimer, Quantitative 400 H 09/01/17 19:05: pO2 49, VBG pH 7.41, VBG pCO2 44.0, VBG HCO3 27.9, VBG Total CO2 29.3 H, VBG O2 Sat (Calc) 90.0 H, VBG Base Excess 2.7 H, VBG Potassium 5.9 H , Sodium 139.0, Chloride 106.0, Glucose 141 H, Lactate 1.4, FiO2 21.0, Venous Blood Potassium 5.9 H 09/01/17 19:05: Influenza Typ A,B (EIA) Negative for flu a/b 09/01/17 19:05: WBC 6.1, RBC 4.91, Hgb 13.0, Hct 41.1, MCV 83.7, MCH 26.5, MCHC 31.6, RDW 15.7 H, Plt Count 257, MPV 10.7, Gran % 75.0 H, Lymph % (Auto) 19.3 L , [place] % (Auto) 5.2, Eos % (Auto) 0.5 L, Baso % (Auto) 0.0, Gran # 4.59, Lymph # (Auto) 1.2, [place] # (Auto) 0.3, Eos # (Auto) 0.0, Baso # (Auto) 0.00 - RAD Interpretation Radiology Orders: 09/01/17 18:14 CHEST PORTABLE [RAD] Stat 09/01/17 22:38 ANGIO CHEST PE PROTOCOL [CT] Stat - Medication Orders Current Medication Orders: Discontinued Medications Furosemide (Lasix) 40 mg IVP STAT STA Stop: 09/01/17 21:27 Last Admin: 09/01/17 23:09 Dose: Not Given Non-Admin Reason: BP Parameters Not Met [facility] Blood Pressure Document 09/01/17 23:09 RD (Rec: 09/01/17 23:09 RD [id number]) Blood Pressure Blood Pressure (100/60-150/90) 90/63 IVP Administration Document 09/01/17 23:09 RD (Rec: 09/01/17 23:09 RD [id number]) Charges for Administration # of IVP Administrations 1 Ketorolac Tromethamine (Toradol) 30 mg IVP STAT STA Stop: 09/01/17 20:31 Last Admin: 09/01/17 20:53 Dose: 30 mg [facility] Pain Assessment Document 09/01/17 20:53 EQ (Rec: 09/01/17 20:53 EQ [id number] Pain Reassessment Is this a pain reassessment? No Sleep Is patient sleeping during reassessment? No Presence of Pain Presence of Pain Yes IVP Administration Document 09/01/17 20:53 EQ (Rec: 09/01/17 20:[address] [id number] Charges for Administration # of IVP Administrations 1 - Scribe Statement The provider has reviewed the documentation as recorded by the Scribe Vanita Hedrick Provider Scribe Attestation: All medical record entries made by the Scribe were at my direction and personally dictated by me. I have reviewed the chart and agree that the record accurately reflects my personal performance of the history, physical exam, medical decision making, and the department course for this patient. I have also personally directed, reviewed, and agree with the discharge instructions and disposition. Disposition/Present on Arrival - Present on Arrival Any Indicators Present on Arrival: No History of DVT/PE: No History of Uncontrolled Diabetes: No Urinary Catheter: No History of Decub. Ulcer: No History Surgical Site Infection Following: None - Disposition Have Diagnosis and Disposition been Completed?: Yes Diagnosis: Malaise and fatigue, CHF (congestive heart failure), Cardiomyopathy, Breast pain, Hematoma (nontraumatic) of breast Disposition: HOME/ ROUTINE Disposition Time: 01:06 Patient Problems: Current Active Problems Problem Status Onset Breast pain Acute CHF (congestive heart failure) Acute Cardiomyopathy Acute Hematoma (nontraumatic) of breast Acute Malaise and fatigue Acute Condition: FAIR Discharge Instructions (ExitCare): Heart Failure, Adult, Heart Failure, Adult ( DC), Fatigue (DC), Common Breast Problems, Cardiomyopathy (DC), Heart Failure ( ED), Chest Pain (ED) Additional Instructions: Stephanie - I am not certain why you feel so fatigued. All of your tests are at baseline except your BNP was a little higher than usual. Follow up with your doctors next week. Return to us if any problems. Best- Dr. Jah Jamison Referrals: Ilia Maxwell MD [Primary Care Provider] - Follow up with primary
--- NOTE | 2017-09-02 00:57 | CT ---
EXAM: CT Angiography Chest With Intravenous Contrast CLINICAL HISTORY: 52 years old, female; Abnormal findings; Abnormal diagnostic tests; Elevated d-dimer; Prior surgery; Surgery date: 6+ months; Surgery type: Pacemaker; Additional info: Positive d-dimer TECHNIQUE: Axial computed tomographic angiography images of the chest with intravenous contrast using pulmonary embolism protocol. All CT scans at this facility use one or more dose reduction techniques, viz.: automated exposure control; ma/kV adjustment per patient size (including targeted exams where dose is matched to indication; i.e. head); or iterative reconstruction technique. MIP reconstructed images were created and reviewed. Coronal and sagittal reformatted images were created and reviewed. CONTRAST: 100 mL of OMNI 350 administered intravenously. COMPARISON: CT - CHEST W/O CONTRAST 2016-07-02 04:12 FINDINGS: Limitations: Motion artifact - mild. Streak artifact - mild. Pulmonary arteries: Enlargement of pulmonary trunk, 3.3 cm. No definite pulmonary embolism. Aorta: No aneurysm. No dissection. Lungs: Minimal atelectasis. No consolidation. Pleural space: No significant effusion. No pneumothorax. Heart: Moderate cardiomegaly. No significant pericardial effusion. Bones/joints: No acute fracture. Soft tissues: Resolution of fluid density lesion within right breast with replacement by fat. Lymph nodes: No pathologically enlarged lymph nodes. Spleen: Multiple calcifications. Tubes, lines and devices: LEFT pacemaker. IMPRESSION: 1. No definite CT evidence of pulmonary embolism. 2. Resolution of fluid density lesion within right breast with replacement by fat. Followup as clinically warranted. 3. Incidental/non-acute findings are described above.
[2017-09-02 01:23] VITALS: BP 99/65; PULSE 76; RESP 18; O2SAT 96
--- NOTE | 2017-09-02 20:31 | CARD ---
APPROVED REPORT EKG Measurement Heart [id number] <Conclusion> Sinus rhythm with 1st degree AV block with occasional premature ventricular complexes Possible Left atrial enlargement Left axis deviation Inferior infarct, age undetermined Abnormal ECG
== END 2017-09-02 01:24 | disposition home or self-care (01) ==
LOC: ED 17:01
DX: I42.9 Cardiomyopathy, unspecified (principal); N64.4 Mastodynia; I50.9 Heart failure, unspecified; R53.81 Other malaise; R53.83 Other fatigue; N64.89 Other specified disorders of breast; M32.9 Systemic lupus erythematosus, unspecified
CPT/HCPCS: 71045; 71275; 80053; 82550; 82803; 83615; 83880; 84484; 85025; 85378; 85610; 87040; 87149; 87205; 87804; 93005; 96374; 99284; J1885; Q9967

== ENCOUNTER 2017-09-03 20:23 | Inpatient (IN) | payer MEDICARE, MEDICAID ==
[2017-09-03 20:23] VITALS: PULSE 98
--- NOTE | 2017-09-03 21:43 | ED PDOC ---
Arrival/HPI - General Chief Complaint: Flu-like Symptoms Time Seen by Provider: 09/03/17 20:26 Historian: Patient - History of Present Illness Narrative History of Present Illness (Text): 09/03/17 21:39 Stephanie Siddiqui is a 52 year old female, whose past medical history includes non-ischemic cardiomyopathy s/p AICD,, endocarditis, patent foramen ovale, SLE, satroke, right sided weakness, pulmonary embolism, anxiety, depression, right breast cellulitis, who was called into the Emergency department for a positive blood culture. Patient states she has generalized body pain. Patient denies any fevers, chills, shortness of breath, nausea, vomiting, diarrhea, headache, dizziness, or any other complaint. Symptom Course: Unchanged Activities at Onset: Light Context: Home Past Medical History - Provider Review Nursing Documentation Reviewed: Yes - Past History Past History: Non-Contributing - Infectious Disease Hx of Infectious Diseases: None - Tetanus Immunization Tetanus Immunization: Unknown - Past Medical History Past Medical History: Non-Contributing - Cardiac Other/Comment: Cardiomyopathy. Heart transplant list - Pulmonary Hx Respiratory Disorders: Yes (pe) Hx Asthma: Yes Hx Pneumonia: Yes Other/Comment: h/o intubation,H/O + PPD - Neurological Hx Neurological Disorder: Yes HX Cerebrovascular Accident: Yes (X 2 ,16 ys ago, no residual) Hx Dizziness: Yes - HEENT Hx HEENT Disorder: Yes (eyeglasses, seasonal allergies) - Renal Hx Renal Disorder: No - Endocrine/Metabolic Hx Endocrine Disorders: Yes Hx Systemic Lupus Erythematosus: Yes - Hematological/Oncological Hx Cancer: No - Integumentary Hx Dermatological Disorder: Yes (SCARRING UNDER THE BREAST) - Musculoskeletal/Rheumatological Hx Musculoskeletal Disorders: Yes Hx Falls: Yes - Gastrointestinal Hx Gastrointestinal Disorders: Yes Hx Gastroesophageal Reflux: Yes - Genitourinary/Gynecological Hx Genitourinary Disorders: Yes (NON-MALIGNANT BREAST CALCIFICIATION) Other/Comment: UTERINE FIBROID - Psychiatric Hx Psychophysiologic Disorder: Yes (H/O SMOKING CIGARETTES 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) Hx Anxiety: Yes Hx Depression: Yes Hx Panic Disorder: Yes Hx Substance Use: No - Past Surgical History Past Surgical History: No Previous - Surgical History Hx Mastectomy: No - Anesthesia Hx Anesthesia: Yes Hx Anesthesia Reactions: No Hx Malignant Hyperthermia: No - Suicidal Assessment Feels Threatened In Home Enviroment: No Family/Social History - Physician Review Nursing Documentation Reviewed: Yes Family/Social History: Unknown Family HX Smoking Status: Former Smoker Hx Alcohol Use: Yes (SOCIALLY QUIT) Hx Substance Use: No Hx Substance Use Treatment: No Allergies/Home Meds Allergies/Adverse Reactions: Allergies tramadol [From Ultram] Adverse Reaction (Unknown, Verified 05/30/17 16:34) NAUSEA Home Medications: Home Meds Medication Instructions Recorded Confirmed Warfarin [Coumadin] 1 mg PO DAILY 11/03/15 08/12/17 Cholecalciferol (Vitamin D3) 1 tab PO DAILY 03/09/17 08/12/17 [Vitamin D3] Potassium Chloride [Klor-Con] 20 meq PO DAILY 03/09/17 08/12/17 Lisinopril [Zestril] 2.5 mg PO DAILY 05/06/17 08/12/17 Hydrocortisone [Cortef] 20 mg PO BID 06/03/17 08/12/17 ALPRAZolam [Xanax] 0.25 mg PO QID PRN 08/12/17 08/12/17 Albuterol HFA [Ventolin HFA 90 2 puff NEB Q4 PRN 08/12/17 08/12/17 mcg/actuation (8 g)] Amiodarone [Cordarone] 200 mg PO DAILY 08/12/17 08/12/17 Famotidine [Pepcid] 20 mg PO DAILY 08/12/17 08/12/17 Folic Acid [Folic Acid] 1 mg PO DAILY 08/12/17 08/12/17 Metoprolol Succinate [Toprol XL] 25 mg PO QPM 08/12/17 08/12/17 Milrinone 20mg/100ml D5W [Primacor 20 mg IV DAILY 08/12/17 08/12/17 20mg/100ml D5W] Review of Systems - Physician Review All systems were reviewed & negative as marked: Yes - Review of Systems Constitutional: Normal Eyes: Normal ENT: Normal Respiratory: Normal. absent: SOB, Cough Cardiovascular: Normal. absent: Chest Pain Gastrointestinal: Normal. absent: Diarrhea, Nausea, Vomiting Genitourinary Female: Normal. absent: Dysuria, Frequency, Hematuria Musculoskeletal: Other (general body pains) Skin: Normal. absent: Rash Neurological: Normal. absent: Headache, Dizziness Endocrine: Normal Hemo/Lymphatic: Normal Psychiatric: Normal Physical Exam Vital Signs Reviewed: Yes Vital Signs Temp Pulse Resp BP Pulse Ox 09/03/17 20:25 97.5 F L 84 18 115/74 99 Temperature: Afebrile Blood Pressure: Normal Pulse: Regular Respiratory Rate: Normal Appearance: Positive for: Well-Appearing, Non-Toxic, Comfortable Pain Distress: None Mental Status: Positive for: Alert and Oriented X 3 - Systems Exam Head: Present: Atraumatic, Normocephalic Pupils: Present: PERRL Extroacular Muscles: Present: EOMI Conjunctiva: Present: Normal Mouth: Present: Moist Mucous Membranes Neck: Present: Normal Range of Motion Respiratory/Chest: Present: Clear to Auscultation, Good Air Exchange. No: Respiratory Distress, Accessory Muscle Use Cardiovascular: Present: Regular Rate and Rhythm, Normal S1, S2. No: Murmurs Abdomen: Present: Normal Bowel Sounds. No: Tenderness, Distention, Peritoneal Signs Back: Present: Normal Inspection Upper Extremity: Present: Normal Inspection. No: Cyanosis, Edema Lower Extremity: Present: Normal Inspection. No: Edema Neurological: Present: GCS=15, CN II-XII Intact, Speech Normal Skin: Present: Warm, Dry, Normal Color. No: Rashes Psychiatric: Present: Alert, Oriented x 3, Normal Insight, Normal Concentration Medical Decision Making ED Course and Treatment: 09/03/17 21:44 Impression: 52 year old female who was called back to the emergency department for a positive blood culture. Plan: -- Labs -- Blood Culture -- Reassess and disposition Progress Notes: - Lab Interpretations Lab Results: 09/03/17 09:50 09/03/17 21:50 Lab Results 09/03/17 21:50: Sodium 141, Potassium 3.7, Chloride 105, Carbon Dioxide 28, Anion Gap 11, BUN 20, Creatinine 0.9, Est GFR ( Amer) > 60, Est GFR (Non- Af Amer) > 60, Random Glucose 87, Calcium 9.0, Total Bilirubin 0.3, AST 21, ALT 27, Alkaline Phosphatase 87, Total Protein 7.7, Albumin 3.8, Globulin 3.9, Albumin/Globulin Ratio 1.0 L 09/03/17 09:50: WBC 6.0, RBC 4.62, Hgb 12.2, Hct 38.5, MCV 83.3, MCH 26.4, MCHC 31.7, RDW 15.1 H, Plt Count 251, MPV 10.9, Gran % 62.5, Lymph % (Auto) 30.0, [place] % (Auto) 7.0 H, Eos % (Auto) 0.3 L, Baso % (Auto) 0.2, Gran # 3.72, Lymph # (Auto) 1.8, [place] # (Auto) 0.4, Eos # (Auto) 0.0, Baso # (Auto) 0.01 - Medication Orders Current Medication Orders: Morphine Sulfate (Morphine) 4 mg IVP STAT STA Stop: 09/03/17 22:30 - Scribe Statement The provider has reviewed the documentation as recorded by the Scribe Sarah Garcia All medical record entries made by the Scribe were at my direction and personally dictated by me. I have reviewed the chart and agree that the record accurately reflects my personal performance of the history, physical exam, medical decision making, and the department course for this patient. I have also personally directed, reviewed, and agree with the discharge instructions and disposition. Disposition/Present on Arrival - Present on Arrival Any Indicators Present on Arrival: No History of DVT/PE: No History of Uncontrolled Diabetes: No Urinary Catheter: No History of Decub. Ulcer: No History Surgical Site Infection Following: None - Disposition Have Diagnosis and Disposition been Completed?: Yes Diagnosis: Positive blood culture, Lupus Disposition: HOSPITALIZED Disposition Time: 22:10 Condition: STABLE Referrals: Ilia Maxwell MD [Primary Care Provider] - Follow up with primary Forms: [employer] ([place])
[2017-09-03 22:13] LABS: BASO # 0.01 K/mm3 (0.0-2.0); BASO % 0.2 % (0.0-3.0); EOS % 0.3 % (1.5-5.0); GRAN # 3.72 (1.4-6.5); GRAN % 62.5 % (50.0-68.0); HEMOGLOBIN 12.2 g/dL (12.0-16.0); LYMPH # 1.8 (1.2-3.4); MEAN CELL VOLUME 83.3 fl (80.0-105.0); MEAN CORPUSCULAR HEMOGLOBIN 26.4 pg (25.0-35.0); MEAN CORPUSCULAR HGB CONC 31.7 g/dl (31.0-37.0); MEAN PLATELET VOLUME 10.9 fl (7.0-11.0); MONO # 0.4 (0.1-0.6); RBC 4.62 10^6/uL (3.5-6.1); RED CELL DISTRIBUTION WIDTH 15.1 % (11.5-14.5)
[2017-09-03 22:15] LABS: ALBUMIN 3.8 g/dL (3.0-4.8); ALT/SGPT 27 U/L (7-56); AST/SGOT 21 U/L (14-36); BLOOD UREA NITROGEN 20 mg/dL (7-21); GFR AFRICAN-AMERICAN > 60; GFR NON-AFRICAN AMERICAN > 60
[2017-09-03] MEDS ORDERED: Morphine 4 mg/ml ISec IVP STA (22:29)
[2017-09-04] MEDS: Micafungin 100 MG in Sodium Chloride 0.9% 100 ML IV SCH (00:13)
[2017-09-04 00:28] VITALS: BMI 34.4
[2017-09-04] MEDS: Milrinone 20mg/100ml D5W 100 ML IV SCH ×3 (01:00→17:45)
[2017-09-04] MEDS ORDERED: Morphine 4 mg/ml ISec IVP STA (03:45)
--- NOTE | 2017-09-04 03:50 | CP.PCM.PN ---
Subjective - Date & Time of Evaluation Date of Evaluation: 09/04/17 Time of Evaluation: 03:46 - Subjective Subjective: Patient was seen because she complained of pain all over body and requested pain medication. She would not settle for anything less than what she received in the ER which is morphine 4 mg IV . Has no other complaints. Medical record was reviewed. Admitted with bilateral legs swelling and increase in sob. Has PMH of non ischemic CMP, S/P AICD, endocarditis, patent foramen ovale, ASD, SLE, stroke, PE, anxiety,depression, right breast cellulitits, Objective - Vital Signs/Intake and Output Vital Signs (last 24 hours): Temp Pulse Resp BP Pulse Ox 97.5 F L 61 18 123/87 100 09/03/17 20:25 09/04/17 03:25 09/04/17 03:25 09/04/17 03:25 09/04/17 03:25 - Medications Medications: Current Medications Micafungin Sodium 100 mg/ (Sodium Chloride) 100 mls @ 100 mls/hr IV DAILY ANA LILIA PRN Reason: Protocol Stop: 09/17/17 23:31 Last Admin: 09/04/17 00:13 Dose: 100 mls/hr Milrinone Lactate/Dextrose (Primacor 20mg/100ml D5w) 100 mls @ 12.791 mls/hr IV .Q7H50M ANA LILIA; 0.5 MCG/KG/MIN PRN Reason: Protocol Last Admin: 09/04/17 01:00 Dose: 12.791 mls/hr Morphine Sulfate (Morphine) 4 mg IVP STAT STA Stop: 09/04/17 03:46 - Labs Labs: Most Recent Lab Values WBC 6.0 10^3/ul (4.5-11.0) 09/03/17 09:50 RBC 4.62 10^6/uL (3.5-6.1) 09/03/17 09:50 Hgb 12.2 g/dL (12.0-16.0) 09/03/17 09:50 Hct 38.5 % (36.0-48.0) 09/03/17 09:50 MCV 83.3 fl (80.0-105.0) 09/03/17 09:50 MCH 26.4 pg (25.0-35.0) 09/03/17 09:50 MCHC 31.7 g/dl (31.0-37.0) 09/03/17 09:50 RDW 15.1 % (11.5-14.5) H 09/03/17 09:50 Plt Count 251 10^3/uL (120.0-450.0) 09/03/17 09:50 MPV 10.9 fl (7.0-11.0) 09/03/17 09:50 Gran % 62.5 % (50.0-68.0) 09/03/17 09:50 Lymph % (Auto) 30.0 % (22.0-35.0) 09/03/17 09:50 [place] % (Auto) 7.0 % (1.0-6.0) H 09/03/17 09:50 Eos % (Auto) 0.3 % (1.5-5.0) L 09/03/17 09:50 Baso % (Auto) 0.2 % (0.0-3.0) 09/03/17 09:50 Gran # 3.72 (1.4-6.5) 09/03/17 09:50 Lymph # (Auto) 1.8 (1.2-3.4) 09/03/17 09:50 [place] # (Auto) 0.4 (0.1-0.6) 09/03/17 09:50 Eos # (Auto) 0.0 (0.0-0.7) 09/03/17 09:50 Baso # (Auto) 0.01 K/mm3 (0.0-2.0) 09/03/17 09:50 ESR 40 mm/hr (0.0-20.0) H 09/03/17 21:50 Sodium 141 mmol/L (132-148) 09/03/17 21:50 Potassium 3.7 mmol/L (3.6-5.0) 09/03/17 21:50 Chloride 105 mmol/L (98-107) 09/03/17 21:50 Carbon Dioxide 28 mmol/L (21-33) 09/03/17 21:50 Anion Gap 11 (10-20) 09/03/17 21:50 BUN 20 mg/dL (7-21) 09/03/17 21:50 Creatinine 0.9 mg/dl (0.7-1.2) 09/03/17 21:50 Est GFR ( Amer) > 60 09/03/17 21:50 Est GFR (Non-Af Amer) > 60 09/03/17 21:50 Random Glucose 87 mg/dL (70-110) 09/03/17 21:50 Calcium 9.0 mg/dL (8.4-10.5) 09/03/17 21:50 Total Bilirubin 0.3 mg/dL (0.2-1.3) 09/03/17 21:50 AST 21 U/L (14-36) 09/03/17 21:50 ALT 27 U/L (7-56) 09/03/17 21:50 Alkaline Phosphatase 87 U/L (38-126) 09/03/17 21:50 Total Protein 7.7 g/dL (5.8-8.3) 09/03/17 21:50 Albumin 3.8 g/dL (3.0-4.8) 09/03/17 21:50 Globulin 3.9 gm/dL 09/03/17 21:50 Albumin/Globulin Ratio 1.0 (1.1-1.8) L 09/03/17 21:50 - Constitutional Appears: Well, No Acute Distress - Head Exam Head Exam: ATRAUMATIC, NORMAL INSPECTION, NORMOCEPHALIC - Eye Exam Eye Exam: Normal appearance - ENT Exam ENT Exam: Normal External Ear Exam - Neck Exam Neck Exam: Normal Inspection - Respiratory Exam Respiratory Exam: NORMAL BREATHING PATTERN - Cardiovascular Exam Cardiovascular Exam: absent: JVD - Rectal Exam Rectal Exam: Deferred - Exam Additional comments: Deferred. - Extremities Exam Extremities Exam: Pedal Edema - Back Exam Back Exam: NORMAL INSPECTION - Neurological Exam Neurological Exam: Alert, Awake, Oriented x3 - Psychiatric Exam Psychiatric exam: Normal Affect, Normal Mood - Skin Skin Exam: Normal Color Assessment and Plan - Assessment and Plan (Free Text) Assessment: Body aches. History of SLE. ICD. Non-ischemic CMP. History PE. Hx Patent foramen ovale,ASD. Leg edema. Plan: morphine 4 mg IV x 1. Management as per PMD.
[2017-09-04 12:52] LABS: INR 2.98 (0.93-1.08)
--- NOTE | 2017-09-04 14:50 | CARD ---
APPROVED REPORT EKG Measurement Heart [id number] <Conclusion> Sinus rhythm with 1st degree AV block with occasional premature ventricular complexes Possible Left atrial enlargement Left anterior fascicular block T wave abnormality, consider lateral ischemia Prolonged QT Abnormal ECG
[2017-09-04] MEDS: Metoprolol Succinate 25 mg XL Tab PO SCH (17:46)
--- NOTE | 2017-09-04 23:51 | CON ---
DATE: Patient is seen in room 264, bed 2. CHIEF COMPLAINT: Positive blood culture for yeast x1 day. HISTORY OF PRESENT ILLNESS: This is a 52-year-old female known to me from previous admissions with a history of breast cellulitis and right mastitis, history of pulmonary emboli, history of lupus, cardiomyopathy, congestive heart failure, asthma, anxiety, depression and panic disorder in May. Patient had Ashley glabrata fungemia, has had a pacemaker and an AICD. 2 different devices in her chest, has had a and has a PICC line in her arm, was admitted, and had blood cultures done as outpatient, which grew yeast and recommended for admission. REVIEW OF SYSTEMS: Reveals the patient has low grade fevers and questionable chills. No chest pain. There is mild shortness of breath. No abdominal pain, diarrhea or constipation now. No bright red blood per rectum. No melena. PAST MEDICAL HISTORY: Significant for pulmonary emboli, asthma, cerebrovascular accident, cardiomyopathy, lupus, congestive heart failure, anxiety, depression, panic disorder, Serratia mastitis, Ashley glabrata fungemia in 05/2017. PAST SURGICAL HISTORY: Significant for pacemaker and an AICD and 2 different devices at this point and patient also had a . ALLERGIES: PATIENT IS ALLERGIC TO TRAMADOL. MEDICATIONS AT HOME: Include Pepcid, amiodarone, milrinone. She gets intravenous milrinone through the PICC line. Patient is also on Cortef, hydrocortisone 20 mg p.o. b.i.d., metoprolol and Xanax inhaler. PHYSICAL EXAMINATION: GENERAL: Patient is in bed, in no acute distress. She wants to be discharged. VITAL SIGNS: Temperature of 97, heart rate of 84, respiratory rate of 18. Blood pressure is 120/80. HEENT: Unremarkable. NECK: Supple. LUNGS: Have decreased breath sounds. HEART: Normal S1, S2. ABDOMEN: Soft, nontender. No organomegaly. No rebound or guarding. PICC line site is clean. LABORATORY EXAMINATION: Reveals the patient's white count of 6 and hemoglobin of 12, platelets of 251. BUN of 20, creatinine of 0.9. Patient's emergency room chart is noted and reviewed. Dr. Costello's chart is noted and reviewed. ASSESSMENT AND PLAN: A 52-year-old female with right breast cellulitis, right mastitis, pulmonary emboli, asthma, cerebrovascular accident, cardiomyopathy, congestive heart failure, lupus, anxiety, depression, panic disease and Serratia mastitis, Ashley glabrata fungemia in 05/2017, presents now with fungemia with blood cultures positive for yeast secondary to a PICC line, must rule out endocarditis, pacemaker and/or a AICD infection. I started the patient on Mycamine last night and repeat blood cultures have been ordered, removal of the PICC line, echocardiogram to rule out endocarditis and Dr. Jones on consult. Should have an ophthalmology exam because of the yeast and pending identification sensitivity yeast in the blood. Repeat cultures and may require pacemaker removal since . We will follow closely with you. We will order a sed rate and C-reactive protein. Sed rate is reported to be at 40. C-reactive protein is reported to be at 10.5. Cristóbal Snowden MD
[2017-09-05] MEDS: Milrinone 20mg/100ml D5W 100 ML IV SCH ×3 (00:52→17:09)
--- NOTE | 2017-09-05 03:10 | CON ---
DATE: 09/04/2017 PULMONARY CONSULT REFERRING PHYSICIANS: Estelle Tariq MD/Cristóbal Snowden MD REASON FOR CONSULT: Chronic lung disease, cardiomyopathy, may have sleep apnea syndrome. HISTORY OF PRESENT ILLNESS: This is a 52-year-old female known to me from previous admission. In the last admission, she had fungemia treated with antibiotics by Infectious Diseases. Her PICC line was discontinued. She has known cardiomyopathy with AICD, being followed by Dr. Maurer/Dr. Rubalcava at [facility]; also history of endocarditis; patent foramen ovale; SLE; stroke, right-sided weakness; pulmonary embolism; anxiety disorder; depression, breast cancer. She was in ER two to three days ago with body aches and pains. Her blood culture was done, and now it is growing fungus and she was called back. I spoke to Dr. Snowden who will take care of antibiotics. Her PICC line needs to come out; and if we can put peripheral access for two to three days, that will give advantage to antibiotics and take care of it. At the same time, needs Cardiology consult again, may need transesophageal echo. She had generalized aches and pain. Not much cough. No sputum production. No hemoptysis, no hematemesis, no hematuria, no diarrhea reported. PAST MEDICAL HISTORY: As per history of present illness. FAMILY HISTORY: No significant cardiopulmonary disease reported. SOCIAL HISTORY: Former smoker. ALLERGIES: TO TRAMADOL, GETS NAUSEA. MEDICATIONS: She is on amiodarone 200 mg daily, Cortef, hydrocortisone 20 mg twice a day, folic acid 1 mg daily, potassium 20 mEq daily, micafungin 100 mg daily, Pepcid 20 mg daily, Primacor IV drip, Toprol-XL 25 mg daily, Toradol 50 mg every 8 hour p.r.n., vitamin D 1000 International Units daily, Xanax 0.25 mg twice a day, Zestril 25 mg daily. REVIEW OF SYSTEMS: No headache. No rhinitis, not much cough, no sputum production. No chest pain. No hemoptysis. No hematemesis. No hematuria. No diarrhea reported. Has right-sided PICC line. PHYSICAL EXAMINATION: VITAL SIGNS: Temp is 98, heart rate is 88, respiratory rate is 16, blood pressure 104/71, pulse ox is 95% on room air. HEENT: Moist mucous membrane. Crowded airway. Mallampati score is 4. NECK: Supple. No JVD. LUNGS: Have fair airflow with rhonchi. HEART: S1 and S2. ABDOMEN: Soft and nontender. No organomegaly. EXTREMITIES: No edema. Has a right upper extremity PICC line. NEUROLOGIC: Awake, alert. Follows simple command. LABORATORY DATA: Shows hemoglobin 12.2, hematocrit 38.5, WBC 6.0, platelet is 251. Sed rate is 40. INR 2.98. Sodium 141, potassium 3.7, chloride 105, bicarbonate 28, BUN 20, creatinine 0.1, calcium is 9.0, AST 21, ALT 27, alk phos is 87. C-reactive protein 10.5, albumin is 3.8. Her urine culture has VRE and E. coli. Blood cultures, which is done two days ago reported having yeast, which is one out of two culture. Thoracic CT of the chest done 2 days ago in the ER, which shows no definite CT evidence of pulmonary embolism, resolution of fluid density lesion within the right breast was replaced by fat, incidental acute finding, enlarged pulmonary trunk 3.3 cm, left-sided pacemaker. IMPRESSION AND PLAN: Recurrent fungemia, one out of two blood cultures is Gram stain positive. Has severe cardiomyopathy, Primacor dependent, history of bacteremia, chronic lung disease, may have a component of sleep apnea syndrome in the past, refused to use continuous positive airway pressure. Patient is seen by Dr. Snowden. We will also get Cardiology consult. Continue antibiotics. The right-sided peripherally inserted central catheter line need to come out and peripheral line needs to be placed in for few days. If we can give Primacor through the peripheral line for few days, we will also cut down the steroids. She is steroid dependent because of systemic lupus erythematous, but give her as low dose as possible. Thank you, and we will follow with you. Roberto Mcarthur MD
[2017-09-05 06:42] LABS: HEMOGLOBIN 12.2 g/dL (12.0-16.0); MEAN CELL VOLUME 84.4 fl (80.0-105.0); MEAN CORPUSCULAR HEMOGLOBIN 25.8 pg (25.0-35.0); MEAN CORPUSCULAR HGB CONC 30.6 g/dl (31.0-37.0); MEAN PLATELET VOLUME 10.9 fl (7.0-11.0); RBC 4.73 10^6/uL (3.5-6.1); RED CELL DISTRIBUTION WIDTH 15.2 % (11.5-14.5); WHITE BLOOD COUNT 5.5 10^3/ul (4.5-11.0)
[2017-09-05 07:05] LABS: BLOOD UREA NITROGEN 22 mg/dL (7-21); CALCIUM 9.2 mg/dL (8.4-10.5); GFR AFRICAN-AMERICAN > 60; GFR NON-AFRICAN AMERICAN 59; HDL CHOLESTEROL 45 mg/dL (29-60)
[2017-09-05 07:13] LABS: IRON 41 ug/dL (45-180)
[2017-09-05 07:16] LABS: LDL CHOLESTEROL 160 mg/dL (0-129)
[2017-09-05 07:23] LABS: % IRON SATURATION 14 % (20-55); TOTAL IRON BINDING CAPACITY 294 ug/dL (265-497)
--- NOTE | 2017-09-05 08:11 | HP ---
The patient is a 52-year-old female. CHIEF COMPLAINT: Flu-like symptoms. HISTORY OF PRESENT ILLNESS: Ms. Stephanie Siddiqui is a 52-year-old female, was admitted last time by me, never seen in my office for followup, noncompliant, past medical history of non-ischemic cardiomyopathy, SP AICD, endocarditis, patent foramen ovale, SLE, right-sided weakness, pulmonary embolism, anxiety, depression, right breast cellulitis, came to Emergency Room at [facility] a couple of days ago, did a blood culture that showed yeast. Now, the patient was called into Emergency Room department for a positive blood culture. The patient states that she had generalized body pains. The patient denies fever, chills, shortness of breath, nausea, vomiting, diarrhea. No headache or dizziness, but feeling very weak and tired. PAST MEDICAL HISTORY: As above, non-ischemic cardiomyopathy. The patient is on heart transplant list, history of PE, asthma, pneumonia, history of intubation, history of positive PPD in the past, CVA x2 sixteen years ago, SLE, non-malignant breast calcification, anxiety, depression, panic attacks. FAMILY HISTORY: Father and mother, noncontributory. HABITS: History of smoking, former smoker; alcohol socially, quit. Substance abuse, never. ALLERGIES: THE PATIENT IS ALLERGIC TO TRAMADOL. HOME MEDICATIONS: Coumadin, vitamin D, potassium, Zestril, hydrocortisone, Xanax, Ventolin, amiodarone, Pepcid, folic acid, Toprol. REVIEW OF SYSTEMS: Patient was seen and examined at the bedside, having pain that is everywhere. No fever, no chills. No chest pain. No diarrhea. No nausea, vomiting. No dysuria. No frequency. No hematuria. No rash. Complaining about headache. PHYSICAL EXAMINATION: VITAL SIGNS: Temperature 97.5, pulse 67, respiratory rate 18, blood pressure 115/74, pulse oximetry 99. HEENT: Head: Normocephalic, atraumatic. Eyes: PERRLA. Extraocular movements are intact. Conjunctivae are clear. Nose patent. Mucous membranes are moist. NECK: Supple. No carotid bruit. No JVD or thyromegaly. CHEST: Bilaterally symmetrical. HEART: S1 and S2 positive. LUNGS: Clear to auscultation. ABDOMEN: Soft. Bowel sounds are present. No organomegaly. EXTREMITIES: No edema. No cyanosis. NEUROLOGIC: Patient is awake, alert. Follows simple commands. LABORATORY DATA: White blood cell 6, hemoglobin 12.2, hematocrit 38.5, platelets 251 Sodium 141, potassium 3.4, BUN 20, creatinine 0.9. C-reactive protein 10.50. ESR 40. ASSESSMENT AND PLAN: Ms. Stephanie Siddiqui is a 52-year-old lady with multiple medical problems, history of non-ischemic cardiomyopathy, status post automatic implantable cardioverter-defibrillator, endocarditis, patent foramen ovale, atrial septal defect, systemic lupus erythematosus, stroke, pulmonary embolism, anxiety, depression, right breast cellulitis, came with flu-like symptoms. History of blood culture positive for yeast. Repeat blood cultures. Discussion done with Dr. Snowden, started the patient on micafungin, Pepcid for gastrointestinal prophylaxis. The patient is on milrinone drip. We will continue that, started on Toradol , because THE PATIENT IS ALLERGIC WITH TRAMADOL and according to her, only Tylenol is not helping. Discussion done with nursing staff and Dr. Snowden. Estelle Tariq MD [facility]
--- NOTE | 2017-09-05 08:11 | CON ---
DATE: 09/04/2017 LOCATION: Patient is in room 264, bed 2. REASON FOR CONSULTATION: History of CHF, cardiomyopathy, on Primacor drip, found to have blood cultures positive. HISTORY OF PRESENT ILLNESS: Patient is a 60-year-old female, admitted with the history that a few days ago, she felt aches and pain, and she felt congestion in the sinuses and she was seen in the emergency room and blood cultures were drawn and she was sent home and now she was called back that blood culture is positive. She denies any fever or chills at home. Denies any chest pain. Her breathing has been stable. Patient known to have lupus, nonischemic cardiomyopathy, status post AICD insertion, on Primacor drip at home. Patient was treated with fungemia for a few weeks of antibiotics recently. PAST MEDICAL HISTORY: Significant for lupus, history of SLE, history of prior stroke, history of foramen ovale, right-sided weakness, on Coumadin, status post AICD insertion, initially placed in 2013 in [place] and recently generator change by Dr. Kahn at [facility]. Patient was on antibiotics for fungemia in the blood and she was given a few weeks of IV antibiotics. Patient follows with Dr. Kahn for Cardiology. PREVIOUS CARDIAC WORKUP: The patient's most recent echocardiography was done on 05/31/2017, did not show any vegetation, ejection fraction 15 to 20% on Primacor, mild mitral regurgitation, mild tricuspid regurgitation, mild pulmonary regurgitation. HOME MEDICATIONS: Included warfarin 2 mg daily, potassium 20 mEq daily, lisinopril 2.5 mg p.o. daily, hydrocortisone 20 mg p.o. b.i.d., Xanax 0.25 p.o. q.i.d. p.r.n., Ventolin inhaler 2 puffs every 4 p.r.n., amiodarone 200 mg daily, Pepcid 20 daily, folic acid 1 mg daily, metoprolol succinate 25 mg daily, and on Primacor drip. ALLERGIES: PATIENT DENIES ALLERGIES. FAMILY HISTORY: Not significant. PHYSICAL EXAMINATION VITAL SIGNS: Blood pressure 110/71, respirations 18, pulse 76, temperature 98.3. HEENT: Head is normocephalic. Eyes: Pupils normal. Conjunctivae normal. Nose and throat normal. NECK: JVP low. Carotids equal. THORAX: AP diameter normal. LUNGS: Clear. CARDIOVASCULAR: S1 and S2. ABDOMEN: Soft, nontender. There is no organomegaly. EXTREMITIES: No edema. No clubbing. No cyanosis. LABORATORY DATA: WBC 6.0, hemoglobin 12.2, hematocrit 38.5, platelets 251. Sodium 141, potassium 3.7, BUN 20, creatinine 0.9. AST and ALT are normal. NT-proBNP 2880. Total protein 7.7, albumin 3.8. INR 2.98. Prothrombin time 35.0. Chest x-ray: Mild pulmonary venous congestion. Mild cardiomegaly. CT chest negative for pulmonary embolism. Resolution of the fluid density within the right breast with replacement by fat. EKG shows sinus rhythm with first-degree AV block with PVCs, left anterior hemiblock. DIAGNOSES: Blood culture positive, rule out sepsis, systemic lupus erythematosus, nonischemic cardiomyopathy, patent foramen ovale, atrial septal defect, history of Automatic Implantable Cardioverter Defibrillator, left ventricular ejection fraction 15% to 20%. History of CVA. The patient's blood culture drawn on 09/01/2017 shows Staphylococcus aureus and coag-negative staph, and second blood culture no growth, nonischemic cardiomyopathy, lupus erythematosus, status post automatic implantable cardioverter defibrillator insertion, patent foramen ovale, recently patient had fungemia treated with antibiotics. PLAN: Dr. Snowden requested from ID to evaluate the patient. In the meantime, the patient will be getting warfarin 2 mg daily, starting tomorrow, amiodarone 200 mg daily, hydrocortisone 20 mg b.i.d., folic acid 1 mg daily, potassium 20 mEq p.o. daily, micafungin 100 mg IV daily, Pepcid 20 daily, milrinone drip 0.5 mcg per kg per minute, folic acid 1 mg daily, metoprolol succinate 25 mg p.o. daily, cholecalciferol 1000 International Unit p.o. daily, lisinopril 2.5 mg p.o. daily. Echo has been ordered by Dr. Snowden. We will follow. Roberto Lopez MD
[2017-09-05] MEDS: Cholecalciferol 1,000 INTLU TAB PO SCH (09:18)
[2017-09-05] MEDS: Potassium Chloride 20 mEq ER Tab PO SCH (09:18)
[2017-09-05] MEDS: Micafungin 100 MG in Sodium Chloride 0.9% 100 ML IV SCH (09:19)
--- NOTE | 2017-09-05 11:42 | CON ---
DATE: HISTORY OF PRESENT ILLNESS: The patient is a 52-year-old -[place] female with multiple medical issues including history of foramen ovale, SLE, stroke, pulmonary embolism, right breast cellulitis. The patient was admitted on the medical side for evaluation of generalized body pain. Psych consult was called for evaluation of mood symptoms and anxiety symptoms because the patient has history of depression and anxiety. The patient was seen and examined today. The patient presented to be alert and oriented in self, time and place, knows the circumstances of her admission to the medical side. The patient reported that her anxiety and depression are "much better now." The patient reported that she has history of attending [facility]. At present moment, the patient does not feel that she needs to be on any psychotropic medications or she does not need to see psychiatrist. The patient denied being depressed. Denied thoughts of harming herself or others. The patient denied any psychotic symptoms. The patient does not appear to be depressed or psychotic. Anxiety is under control. Vital signs reviewed. Temperature 98.2, pulse is 70, blood pressure 108/50, respirations 16, oxygen saturation is 98. Medications reviewed. The patient is on Xanax 0.25 mg twice a day as needed, amiodarone, calciferol, Pepcid, folic acid, Lasix, hydrocortisone, Toradol, lisinopril, Toprol, potassium chloride and warfarin. Labs reviewed, seems to be within normal limits. Coagulation reviewed. Chemistry reviewed. The patient's BUN is 22. C-reactive protein is 10.5. Microbiology showed no growth in blood culture. MENTAL STATUS EXAMINATION: The patient appears to be alert and oriented, pleasant and cooperative. Speech was normal rate, tone, quality and quantity. Mood described as feeling much better. Affect was reactive, mood congruent. Thought process coherent and goal directed. Thought content, the patient denied visual, auditory or tactile hallucinations. Denied paranoid ideation. Denied thoughts of harming herself or others. Denied intent or plan. The patient denied feeling of hopelessness or helplessness. The patient is happy to have a new granddaughter who is 5 weeks old and she is happy about that and her future oriented plans to get better and to go back home in order to help with her granddaughter. IMPRESSION: As per history, patient has depression and anxiety, which seems to be in remission. PLAN: Continue current management. Continue current medication. Xanax as needed by primary care team. The patient denied any thoughts of harming herself or others. Denied intent or plan at present as well. The patient is not in any imminent danger to self or others. This video games storywriter will sign off. Should you have any questions, give me a call back. Thank you very much for letting me participate in care of your patient. Ketty Frederick MD
[2017-09-05 12:24] LABS: FOLATE > 20.0 ng/mL
[2017-09-05] MEDS: Oxycodone/Acetaminophen 5/325 mg Tab PO PRN ×2 (14:35→22:47)
[2017-09-05] MEDS: Fluticasone Nasal 50 mcg/Spray NS SCH (14:38)
--- NOTE | 2017-09-05 15:09 | CP.PCM.PN ---
<Sandee Caceres - Last Filed: 09/05/17 15:06> Subjective - Date & Time of Evaluation Date of Evaluation: 09/05/17 Time of Evaluation: 10:30 - Subjective Subjective: Chief Complaint: Generalized pain, Allergic rhinitis 52yr female w/ history of non-ischemic cardiomyopathy s/p AICD , generator [place] [address] Kahn, s/p endocarditis, on heart transplant list [facility], patent foramen ovale, ASD, on LifeVest milirone drip @ home & coumadin , SLE, stroke, R sided weakness, Pulmonary embolism, Anxiety, depression & R breast cellulitis. On 06/08/17 PICC inserted for treatment w/ IV anti-fungals ( Blood culture = (+) Ashley parapsilosis) and primacor drip (LVEF 12.4%, systolic function EF 15-20%, AICD/PPM in RA/RV). 06/10/2017 patient was treated at home with IV infusion nurse services. ID believed that Two pacemakers (Chest wall) & (L flank), may be source of yeast infection. Pt is a High risk for removal of both pacemakers, real EF 10% or less so she was treated medically x 4 weeks w. antifungals. On 09/01/17, repeat cultures were done [place] [facility] [place] they resulted with S. aureas & coag-neg staph PNA FISH. Today, pt seen at bedside complaining of generalized pain and allergic rhinitis symptoms. Denies fever, chills, headache, nausea, vomiting, diarrhea, constipation or urinary changes. Objective - Vital Signs/Intake and Output Vital Signs (last 24 hours): Temp Pulse Resp BP Pulse Ox 97.7 F 77 18 99/66 L 98 09/05/17 12:00 09/05/17 12:00 09/05/17 12:00 09/05/17 12:00 09/05/17 06:00 Intake and Output: 09/05/17 09/05/17 06:59 18:59 Intake Total 806 Balance 806 - Medications Medications: Current Medications Alprazolam (Xanax) 0.25 mg PO BID PRN; Protocol PRN Reason: Anxiety Stop: 09/11/17 11:42 Last Admin: 09/04/17 20:29 Dose: 0.25 mg Amiodarone HCl (Cordarone) 200 mg PO DAILY [facility] Last Admin: 09/05/17 09:18 Dose: 200 mg Cholecalciferol (Vitamin D) 1,000 intlu PO DAILY [facility] Last Admin: 09/05/17 09:18 Dose: 1,000 intlu Famotidine (Pepcid) 20 mg PO DAILY [facility] Last Admin: 09/05/17 09:18 Dose: 20 mg Fluticasone Propionate (Flonase) 1 actuation NS DAILY [facility] Last Admin: 09/05/17 14:38 Dose: 1 spr Folic Acid (Folic Acid) 1 mg PO DAILY [facility] Last Admin: 09/05/17 09:18 Dose: 1 mg Furosemide (Lasix) 40 mg IV DAILY [facility] Last Admin: 09/05/17 09:18 Dose: 40 mg Hydrocortisone (Cortef) 20 mg PO BID [facility] Last Admin: 09/05/17 10:31 Dose: 20 mg Micafungin Sodium 100 mg/ (Sodium Chloride) 100 mls @ 100 mls/hr IV DAILY [facility] PRN Reason: Protocol Stop: 09/17/17 23:31 Last Admin: 09/05/17 09:19 Dose: 100 mls/hr Milrinone Lactate/Dextrose (Primacor 20mg/100ml D5w) 100 mls @ 12.791 mls/hr IV .Q7H50M [facility]; 0.5 MCG/KG/MIN PRN Reason: Protocol Last Admin: 09/05/17 09:19 Dose: 12.791 mls/hr Lisinopril (Zestril) 2.5 mg PO DAILY [facility] Last Admin: 09/05/17 09:17 Dose: 2.5 mg Loratadine (Claritin) 10 mg PO DAILY [facility] Last Admin: 09/05/17 14:37 Dose: 10 mg Metoprolol Succinate (Toprol Xl) 25 mg PO QPM [facility] Last Admin: 09/04/17 17:46 Dose: 25 mg Oxycodone/Acetaminophen (Percocet 5/325 Mg Tab) 1 tab PO Q8 PRN PRN Reason: Pain, moderate (4-7) Stop: 09/08/17 14:01 Last Admin: 09/05/17 14:35 Dose: 1 tab Potassium Chloride (K-Dur 20 Meq Er Tab) 20 meq PO DAILY [facility] Last Admin: 09/05/17 09:18 Dose: 20 meq Warfarin Sodium (Coumadin) 2 mg PO 1800 [facility] PRN Reason: Protocol - Labs Labs: 09/05/17 06:20 09/05/17 06:20 PT 35.0 SECONDS (9.4-12.5) H 09/04/17 12:20 INR 2.98 (0.93-1.08) H 09/04/17 12:20 - Constitutional Appears: No Acute Distress, Chronically Ill - Head Exam Head Exam: ATRAUMATIC, NORMAL INSPECTION, NORMOCEPHALIC - Eye Exam Eye Exam: EOMI, Normal appearance, PERRL Pupil Exam: NORMAL ACCOMODATION, PERRL - ENT Exam ENT Exam: Mucous Membranes Moist, Normal Exam - Neck Exam Neck Exam: Full ROM, Normal Inspection. absent: Lymphadenopathy - Respiratory Exam Respiratory Exam: Clear to Ausculation Bilateral, NORMAL BREATHING PATTERN - Cardiovascular Exam Cardiovascular Exam: +S1, +S2, Murmur - GI/Abdominal Exam GI & Abdominal Exam: Soft, Normal Bowel Sounds. absent: Tenderness - Extremities Exam Extremities Exam: Full ROM, Normal Capillary Refill, Normal Inspection. absent : Joint Swelling, Pedal Edema - Back Exam Back Exam: NORMAL INSPECTION - Neurological Exam Neurological Exam: Alert, Awake, CN II-XII Intact, Normal Gait, Oriented x3 - Psychiatric Exam Psychiatric exam: Normal Affect, Normal Mood - Skin Skin Exam: Dry, Intact, Normal Color, Warm Assessment and Plan (1) Elevated erythrocyte sedimentation rate Status: Acute (2) Anemia, iron deficiency Status: Acute (3) Positive blood culture Status: Acute (4) Lupus Status: Chronic (5) Abdominal pain Status: Acute (6) CHF (congestive heart failure) Status: Acute (7) Dehydration Status: Acute (8) Fungemia Status: Acute (9) Intractable pain Status: Acute (10) Whole body pain Status: Acute - Assessment and Plan (Free Text) Plan: Daily Coumadin. Consult to Dr. Rizo for pain management. IV micafungin for POSITIVE blood culture on 09/01 = S. aureas & coag-neg staph PNA FISH. R arm PICC line removal. VTE/GI prophlyaxis. Refused Cpap. pain management: toradol vs. percocet 1 tab q8hr Consults: Psych - Dr. Ketty Frederick Pain Mnmnt - Dr. David Gooden - Dr. Metz / Dr. Snowden Cardio - Dr. Jones Pulmonary - Reviewed: ECHO = ? ECG = ABNORMAL, SR w. 1AVB w. PVC, possible L atrial enlargement, L anterior fasicular block, T wave abn, consider lateral ischemia, prolonged QT 06/10/2017 Blood culture = (+) Ashley parapsilosis 06/2017 ECHO = LVEF 12.4%, systolic function EF 15-20%, AICD/PPM in RA/RV <Estelle Tariq - Last Filed: 09/05/17 17:36> Objective - Vital Signs/Intake and Output Vital Signs (last 24 hours): Temp Pulse Resp BP Pulse Ox 98.5 F 69 20 117/75 98 09/05/17 17:20 09/05/17 17:20 09/05/17 17:20 09/05/17 17:20 09/05/17 06:00 Intake and Output: 09/05/17 09/05/17 06:59 18:59 Intake Total 806 Balance 806 - Medications Medications: Current Medications Alprazolam (Xanax) 0.25 mg PO BID PRN; Protocol PRN Reason: Anxiety Stop: 09/11/17 11:42 Last Admin: 09/04/17 20:29 Dose: 0.25 mg Amiodarone HCl (Cordarone) 200 mg PO DAILY [facility] Last Admin: 09/05/17 09:18 Dose: 200 mg Cholecalciferol (Vitamin D) 1,000 intlu PO DAILY [facility] Last Admin: 09/05/17 09:18 Dose: 1,000 intlu Famotidine (Pepcid) 20 mg PO DAILY [facility] Last Admin: 09/05/17 09:18 Dose: 20 mg Fluticasone Propionate (Flonase) 1 actuation NS DAILY [facility] Last Admin: 09/05/17 14:38 Dose: 1 spr Folic Acid (Folic Acid) 1 mg PO DAILY [facility] Last Admin: 09/05/17 09:18 Dose: 1 mg Furosemide (Lasix) 40 mg IV DAILY [facility] Last Admin: 09/05/17 09:18 Dose: 40 mg Hydrocortisone (Cortef) 20 mg PO BID [facility] Last Admin: 09/05/17 10:31 Dose: 20 mg Micafungin Sodium 100 mg/ (Sodium Chloride) 100 mls @ 100 mls/hr IV DAILY [facility] PRN Reason: Protocol Stop: 09/17/17 23:31 Last Admin: 09/05/17 09:19 Dose: 100 mls/hr Milrinone Lactate/Dextrose (Primacor 20mg/100ml D5w) 100 mls @ 12.791 mls/hr IV .Q7H50M [facility]; 0.5 MCG/KG/MIN PRN Reason: Protocol Last Admin: 09/05/17 17:09 Dose: 12.791 mls/hr Lisinopril (Zestril) 2.5 mg PO DAILY [facility] Last Admin: 09/05/17 09:17 Dose: 2.5 mg Loratadine (Claritin) 10 mg PO DAILY [facility] Last Admin: 09/05/17 14:37 Dose: 10 mg Metoprolol Succinate (Toprol Xl) 25 mg PO QPM [facility] Last Admin: 09/04/17 17:46 Dose: 25 mg Oxycodone/Acetaminophen (Percocet 5/325 Mg Tab) 1 tab PO Q8 PRN PRN Reason: Pain, moderate (4-7) Stop: 09/08/17 14:01 Last Admin: 09/05/17 14:35 Dose: 1 tab Potassium Chloride (K-Dur 20 Meq Er Tab) 20 meq PO DAILY [facility] Last Admin: 09/05/17 09:18 Dose: 20 meq Warfarin Sodium (Coumadin) 2 mg PO 1800 [facility] PRN Reason: Protocol - Labs Labs: 09/05/17 06:20 09/05/17 06:20 PT 35.0 SECONDS (9.4-12.5) H 09/04/17 12:20 INR 2.98 (0.93-1.08) H 09/04/17 12:20 Assessment and Plan - Assessment and Plan (Free Text) Plan: 52yr female w/ history of non-ischemic cardiomyopathy s/p AICD , [place] [address] Kahn, s/p endocarditis, on heart transplant list [facility], patent foramen ovale, ASD, on LifeVest milirone drip @ home & coumadin , SLE, stroke, R sided weakness, Pulmonary embolism, Anxiety, depression & R breast cellulitis. On 06/08/17 PICC inserted for treatment w/ IV anti-fungals ( Blood culture = (+) Ashley parapsilosis) and primacor drip (LVEF 12.4%, systolic function EF 15-20%, AICD/PPM in RA/RV). 06/10/2017 patient was treated at home with IV infusion nurse services. ID believed that Two pacemakers (Chest wall) & (L flank), may be source of yeast infection. Pt is a High risk for removal of both pacemakers, real EF 10% or less so she was treated medically x 4 weeks w. antifungals. On 09/01/17, repeat cultures were done in Emergency Dept [place] [facility] [place] they resulted with S. aureas & coag-neg staph PNA FISH. Today, pt seen at bedside complaining of generalized pain and allergic rhinitis symptoms. Denies fever, chills, headache, nausea, vomiting, diarrhea, constipation or urinary changes. pt is sen and examined at bed side , agreed all above . chart , ale and labs noted , will f/u
--- NOTE | 2017-09-05 16:54 | CP.PCM.PN ---
Subjective - Date & Time of Evaluation Date of Evaluation: 09/05/17 Time of Evaluation: 08:35 - Subjective Subjective: No SOB at rest, no fevers, no nausea, no diarrhea. Objective - Vital Signs/Intake and Output Vital Signs (last 24 hours): Temp Pulse Resp BP Pulse Ox 97.7 F 77 18 99/66 L 98 09/05/17 12:00 09/05/17 12:00 09/05/17 12:00 09/05/17 12:00 09/05/17 06:00 Intake and Output: 09/05/17 09/05/17 06:59 18:59 Intake Total 806 Balance 806 - Medications Medications: Current Medications Alprazolam (Xanax) 0.25 mg PO BID PRN; Protocol PRN Reason: Anxiety Stop: 09/11/17 11:42 Last Admin: 09/04/17 20:29 Dose: 0.25 mg Amiodarone HCl (Cordarone) 200 mg PO DAILY [facility] Last Admin: 09/05/17 09:18 Dose: 200 mg Cholecalciferol (Vitamin D) 1,000 intlu PO DAILY [facility] Last Admin: 09/05/17 09:18 Dose: 1,000 intlu Famotidine (Pepcid) 20 mg PO DAILY [facility] Last Admin: 09/05/17 09:18 Dose: 20 mg Fluticasone Propionate (Flonase) 1 actuation NS DAILY [facility] Last Admin: 09/05/17 14:38 Dose: 1 spr Folic Acid (Folic Acid) 1 mg PO DAILY [facility] Last Admin: 09/05/17 09:18 Dose: 1 mg Furosemide (Lasix) 40 mg IV DAILY [facility] Last Admin: 09/05/17 09:18 Dose: 40 mg Hydrocortisone (Cortef) 20 mg PO BID [facility] Last Admin: 09/05/17 10:31 Dose: 20 mg Micafungin Sodium 100 mg/ (Sodium Chloride) 100 mls @ 100 mls/hr IV DAILY [facility] PRN Reason: Protocol Stop: 09/17/17 23:31 Last Admin: 09/05/17 09:19 Dose: 100 mls/hr Milrinone Lactate/Dextrose (Primacor 20mg/100ml D5w) 100 mls @ 12.791 mls/hr IV .Q7H50M [facility]; 0.5 MCG/KG/MIN PRN Reason: Protocol Last Admin: 09/05/17 09:19 Dose: 12.791 mls/hr Lisinopril (Zestril) 2.5 mg PO DAILY [facility] Last Admin: 09/05/17 09:17 Dose: 2.5 mg Loratadine (Claritin) 10 mg PO DAILY [facility] Last Admin: 09/05/17 14:37 Dose: 10 mg Metoprolol Succinate (Toprol Xl) 25 mg PO QPM [facility] Last Admin: 09/04/17 17:46 Dose: 25 mg Oxycodone/Acetaminophen (Percocet 5/325 Mg Tab) 1 tab PO Q8 PRN PRN Reason: Pain, moderate (4-7) Stop: 09/08/17 14:01 Last Admin: 09/05/17 14:35 Dose: 1 tab Potassium Chloride (K-Dur 20 Meq Er Tab) 20 meq PO DAILY [facility] Last Admin: 09/05/17 09:18 Dose: 20 meq Warfarin Sodium (Coumadin) 2 mg PO 1800 [facility] PRN Reason: Protocol - Labs Labs: 09/05/17 06:20 09/05/17 06:20 PT 35.0 SECONDS (9.4-12.5) H 09/04/17 12:20 INR 2.98 (0.93-1.08) H 09/04/17 12:20 - Constitutional Appears: Chronically Ill - Head Exam Head Exam: NORMAL INSPECTION - Neck Exam Neck Exam: absent: Meningismus - Respiratory Exam Respiratory Exam: Decreased Breath Sounds - Cardiovascular Exam Cardiovascular Exam: +S1, +S2 - GI/Abdominal Exam GI & Abdominal Exam: Soft. absent: Tenderness Assessment and Plan - Assessment and Plan (Free Text) Plan: Assessment fungemia, source to be determined, R/O PICC line related, R/O AICD related history of sepsis due to C. parapsilosis and C. glabrata fungemia and Enterococcus bacteremia probably from PICC line, unable to rule out endocarditis history of Sepsis due to right breast cellulitis/mastitis with purulent discharge, growing Serratia history of bilateral breast mastitis growing coagulase negative Staph and Klebsiella pneumoniae history of vaginal candidiasis SLE history of pulmonary emboli CVA asthma S/P ICD placement Plan continue mycamine; follow up repeat blood cx; would recommend RANJEET and discussed with Cardio Overall prognosis is poor
[2017-09-05] MEDS: Metoprolol Succinate 25 mg XL Tab PO SCH (17:45)
--- NOTE | 2017-09-05 19:16 | CARD ---
APPROVED REPORT EXAM: Two-dimensional and M-mode echocardiogram with Doppler and color Doppler. INDICATION Infection:Rule out subacute bacterial endocarditis 2D DIMENSIONS Left Atrium (2D)4.7 (1.6-4.0cm)IVSd1.1 (0.7-1.1cm) LVDd6.9 (3.9-5.9cm)PWd1.1 (0.7-1.1cm) LVDs6.5 (2.5-4.0cm)FS (%) 5.4 % LVEF (%)11.7 (>50%) M-Mode DIMENSIONS Aortic Root2.80 (2.2-3.7cm)Aortic Cusp Exc.1.80 (1.5-2.0cm) Aortic Valve AoV Peak Zucvobig722.0cm/Rasheed Peak GR.4mmHg Mitral Valve E/A ratio0.0 TDI E/Lateral E'0.0E/Medial E'0.0 Tricuspid Valve TR Peak [id number] [id number] Peak Gr.23mmHg [id number] LEFT VENTRICLE The Left Ventricle is severely dilated. There is normal left ventricular wall thickness. The systolic function is severely impaired. There is global hypokinesis of the left ventricle. Transmitral Doppler flow pattern is Grade I-abnormal relaxation pattern. No left ventricle thrombus noted on this study. RIGHT VENTRICLE The right ventricle is normal size. There is normal right ventricular wall thickness. Systolic function is borderline reduced. There is a pacemaker lead in the right ventricle. ATRIA The left atrium is mildly dilated. The right atrium is borderline dilated. AORTIC VALVE The aortic valve is normal in structure. No aortic regurgitation is present. There is no aortic valvular stenosis. MITRAL VALVE The mitral valve is normal in structure. Mitral regurgitation is mild. TRICUSPID VALVE There is mild pulmonary hypertension. <Conclusion> The Left Ventricle is severely dilated. There is normal left ventricular wall thickness. The systolic function is severely impaired. There is global hypokinesis of the left ventricle. Transmitral Doppler flow pattern is Grade I-abnormal relaxation pattern. No left ventricle thrombus noted on this study. Mitral regurgitation is mild. No Mitral or Aortic vegitation noted
--- NOTE | 2017-09-05 19:22 | PN ---
DATE: 09/05/2017 REASON FOR CONSULTATION: Followup history of CHF, cardiomyopathy, nonischemic on Primacor, cardiac evaluation, blood culture positive for possible fungemia and negative for gram-positive cocci or gram-negative cocci. The patient denies any chest pain, shortness of breath, any palpitation. OBJECTIVE GENERAL: Not in apparent distress. VITAL SIGNS: Temperature afebrile, heart rate 70, blood pressure 108/50. HEENT: PERRLA. Extraocular muscles intact. NECK: Supple. No carotid bruit or thyromegaly. CHEST: Clear to auscultation. HEART: S1 and S2 regular. ABDOMEN: Soft. EXTREMITIES: Clubbing and cyanosis negative. LABORATORY DATA: Blood workup as follows: WBC 5.5, hemoglobin 12.2, hematocrit 39.9, platelet count 265. Chemistry: Sodium 140, potassium 4.3, chloride 106, carbon dioxide 28, anion gap of 14, BUN 22, creatinine 1. IMPRESSION: History of fungemia in the blood, history of cardiomyopathy, history of automatic implantable cardioverter-defibrillator, cardiomyopathy nonischemic. Last echo did not show any vegetation. Ejection fraction 15%, on Primacor, mitral regurgitation, mild tricuspid regurgitation. RECOMMENDATION: The patient is going for echo today. Continue anticoagulation. INR is 2.98 yesterday, today is pending. We will repeat INR tomorrow if it is not done today. We will discontinue telemetry. Continue antibiotic as per ID. We will follow with you. Thank you, Dr. Tariq, for providing us the opportunity in taking care of Stephanie Siddiqui. We will review the echo when it is done and we will discontinue telemetry. Roberto Jones MD
--- NOTE | 2017-09-05 23:50 | PN ---
DATE: 09/05/2017 PULMONARY PROGRESS NOTE REFERRING PHYSICIAN: Estelle Tariq MD. SUBJECTIVE: Patient is sitting up in a bed. Night was unremarkable. Feels okay. No cough. No sputum production. No nausea, no vomiting, no diarrhea. No leg pain or leg swelling. OBJECTIVE: GENERAL: No acute distress. VITAL SIGNS: Temperature is 98, heart rate is 69, respiratory rate is 20, blood pressure 117/75, pulse ox is 98% on room air. HEENT: Moist mucous membrane. Crowded airway. Mallampati score is IV. NECK: Supple. No JVD. LUNGS: Has a fair airflow. HEART: S1 and S2. ABDOMEN: Soft, nontender, no organomegaly. EXTREMITIES: There is no edema. NEUROLOGIC: Awake, alert, follow simple commands. She has a right upper extremity PICC line. MEDICATIONS: She is on Claritin 10 mg daily, amiodarone 200 mg daily, Cortef (hydrocortisone) 20 mg twice a day, Coumadin 2 mg, Flonase one spray each nostril daily, folic acid 1 mg daily, potassium 20 mEq daily, Lasix 40 mg daily, micafungin 100 mg daily, Pepcid 20 mg daily, Percocet 5/325 one tab every 8 hours p.r.n. for pain, also on milrinone IV drip, Toprol-XL 25 mg daily, vitamin D 1000 international unit daily, Xanax 0.25 mg twice a day p.r.n., Zestril 2.5 mg daily. LABORATORY DATA: Shows hemoglobin 12.2, hematocrit 39.9, WBC 5.5, platelet count is 265. Sed rate is 40. Sodium 144, potassium 4.1, chloride 106, bicarbonate 28, BUN 22, creatinine 1.0, glucose 97, calcium is 9.2, iron is 41, cholesterol is 251, TSH 0.13, vitamin B12 388, folate more than 20. Microbiology, blood culture, no growth, which is a repeat blood culture. The blood culture drawn on 09/01/2017 has yeast in it, which is one out of a two culture. Echocardiogram is done and the report is pending. IMPRESSION AND PLAN: Recurrent fungemia, has an Automatic Implantable Cardioverter Defibrillator and a peripherally inserted central catheter line. Milrinone dependent. Also has a history of systemic lupus erythematosus, steroid dependent, immunocompromised, chronic lung disease, may have sleep apnea syndrome. Patient is seen by Cardiology. Echocardiogram is done, report is pending. We will leave decision to remove the PICC line and place another one for Infectious Diseases. Pulmonary point of view, keep head at 45 degrees, sleep apnea precautions. We will cut down hydrocortisone to once a day. We will try to decrease steroids as much as possible. Thank you and we will follow with you. Roberto Mcarthur MD
[2017-09-06] MEDS: Milrinone 20mg/100ml D5W 100 ML IV SCH ×2 (01:16→09:53)
[2017-09-06] MEDS ORDERED: Oxycodone/Acetaminophen 5/325 mg Tab PO STA (04:24)
--- NOTE | 2017-09-06 04:26 | CP.PCM.PN ---
Subjective - Date & Time of Evaluation Date of Evaluation: 09/06/17 Time of Evaluation: 04:25 - Subjective Subjective: Seen at bedside. She complained of lower abdominal pain, mild, no radiation. Has a order for percocet 5/325 q8h prn pain. Last time she received percocet was at about 11 pm. Next dose is not due until about 7am. She also says that she is constipated, last bowel movement was 2 days ago , hard consistency. Requests a stool softner. No other complaints. Denies nausea, vomiting, chest pain. Medical record was reviewed. This 52 year old woman wa admitted Has PMH of PE, asthma, non ischemic cardiomyopathy, SLE, CVA, Pneumonia, anxiety , depression, panic disorder, intubation, on heart transplant list. Objective - Vital Signs/Intake and Output Vital Signs (last 24 hours): Temp Pulse Resp BP Pulse Ox 98.1 F 91 H 20 105/76 98 09/06/17 00:01 09/06/17 01:16 09/06/17 00:01 09/06/17 01:16 09/05/17 06:00 - Medications Medications: Current Medications Alprazolam (Xanax) 0.25 mg PO DAILY [facility] PRN Reason: Protocol Stop: 09/13/17 10:01 Amiodarone HCl (Cordarone) 200 mg PO DAILY [facility] Last Admin: 09/05/17 09:18 Dose: 200 mg Cholecalciferol (Vitamin D) 1,000 intlu PO DAILY [facility] Last Admin: 09/05/17 09:18 Dose: 1,000 intlu Famotidine (Pepcid) 20 mg PO DAILY [facility] Last Admin: 09/05/17 09:18 Dose: 20 mg Fluticasone Propionate (Flonase) 1 actuation NS DAILY [facility] Last Admin: 09/05/17 14:38 Dose: 1 spr Folic Acid (Folic Acid) 1 mg PO DAILY [facility] Last Admin: 09/05/17 09:18 Dose: 1 mg Furosemide (Lasix) 40 mg IV DAILY [facility] Last Admin: 09/05/17 09:18 Dose: 40 mg Hydrocortisone (Cortef) 20 mg PO DAILY [facility] Micafungin Sodium 100 mg/ (Sodium Chloride) 100 mls @ 100 mls/hr IV DAILY [facility] PRN Reason: Protocol Stop: 09/17/17 23:31 Last Admin: 09/05/17 09:19 Dose: 100 mls/hr Milrinone Lactate/Dextrose (Primacor 20mg/100ml D5w) 100 mls @ 12.791 mls/hr IV .Q7H50M [facility]; 0.5 MCG/KG/MIN PRN Reason: Protocol Last Admin: 09/06/17 01:16 Dose: 12.791 mls/hr Lisinopril (Zestril) 2.5 mg PO DAILY [facility] Last Admin: 09/05/17 09:17 Dose: 2.5 mg Loratadine (Claritin) 10 mg PO DAILY [facility] Last Admin: 09/05/17 14:37 Dose: 10 mg Metoprolol Succinate (Toprol Xl) 25 mg PO QPM [facility] Last Admin: 09/05/17 17:45 Dose: 25 mg Oxycodone/Acetaminophen (Percocet 5/325 Mg Tab) 1 tab PO Q8 PRN PRN Reason: Pain, moderate (4-7) Stop: 09/08/17 14:01 Last Admin: 09/05/17 22:47 Dose: 1 tab Oxycodone/Acetaminophen (Percocet 5/325 Mg Tab) 1 tab PO STAT STA Stop: 09/06/17 04:25 Potassium Chloride (K-Dur 20 Meq Er Tab) 20 meq PO DAILY [facility] Last Admin: 09/05/17 09:18 Dose: 20 meq Warfarin Sodium (Coumadin) 2 mg PO 1800 [facility] PRN Reason: Protocol Last Admin: 09/05/17 17:45 Dose: 2 mg - Labs Labs: 09/05/17 06:20 09/05/17 06:20 PT 35.0 SECONDS (9.4-12.5) H 09/04/17 12:20 INR 2.98 (0.93-1.08) H 09/04/17 12:20 Micro Results 09/03/17 09:50 Blood Blood Culture - Preliminary NO GROWTH AFTER 48 HOURS 09/03/17 09:25 Blood Blood Culture - Preliminary NO GROWTH AFTER 48 HOURS Most Recent Lab Values WBC 5.5 10^3/ul (4.5-11.0) 09/05/17 06:20 RBC 4.73 10^6/uL (3.5-6.1) 09/05/17 06:20 Hgb 12.2 g/dL (12.0-16.0) 09/05/17 06:20 Hct 39.9 % (36.0-48.0) 09/05/17 06:20 MCV 84.4 fl (80.0-105.0) 09/05/17 06:20 MCH 25.8 pg (25.0-35.0) 09/05/17 06:20 MCHC 30.6 g/dl (31.0-37.0) L 09/05/17 06:20 RDW 15.2 % (11.5-14.5) H 09/05/17 06:20 Plt Count 265 10^3/uL (120.0-450.0) 09/05/17 06:20 MPV 10.9 fl (7.0-11.0) 09/05/17 06:20 Gran % 62.5 % (50.0-68.0) 09/03/17 09:50 Lymph % (Auto) 30.0 % (22.0-35.0) 09/03/17 09:50 [place] % (Auto) 7.0 % (1.0-6.0) H 09/03/17 09:50 Eos % (Auto) 0.3 % (1.5-5.0) L 09/03/17 09:50 Baso % (Auto) 0.2 % (0.0-3.0) 09/03/17 09:50 Gran # 3.72 (1.4-6.5) 09/03/17 09:50 Lymph # (Auto) 1.8 (1.2-3.4) 09/03/17 09:50 [place] # (Auto) 0.4 (0.1-0.6) 09/03/17 09:50 Eos # (Auto) 0.0 (0.0-0.7) 09/03/17 09:50 Baso # (Auto) 0.01 K/mm3 (0.0-2.0) 09/03/17 09:50 ESR 40 mm/hr (0.0-20.0) H 09/03/17 21:50 PT 35.0 SECONDS (9.4-12.5) H 09/04/17 12:20 INR 2.98 (0.93-1.08) H 09/04/17 12:20 Sodium 144 mmol/L (132-148) 09/05/17 06:20 Potassium 4.1 mmol/L (3.6-5.0) 09/05/17 06:20 Chloride 106 mmol/L (98-107) 09/05/17 06:20 Carbon Dioxide 28 mmol/L (21-33) 09/05/17 06:20 Anion Gap 14 (10-20) 09/05/17 06:20 BUN 22 mg/dL (7-21) H 09/05/17 06:20 Creatinine 1.0 mg/dl (0.7-1.2) 09/05/17 06:20 Est GFR ( Amer) > 60 09/05/17 06:20 Est GFR (Non-Af Amer) 59 09/05/17 06:20 Random Glucose 97 mg/dL (70-110) 09/05/17 06:20 Hemoglobin A1c 6.3 % (4.2-6.5) 09/05/17 05:00 Calcium 9.2 mg/dL (8.4-10.5) 09/05/17 06:20 Iron 41 ug/dL (45-180) L 09/05/17 06:00 TIBC 294 ug/dL (265-497) 09/05/17 06:00 % Saturation 14 % (20-55) L 09/05/17 06:00 Total Bilirubin 0.3 mg/dL (0.2-1.3) 09/03/17 21:50 AST 21 U/L (14-36) 09/03/17 21:50 ALT 27 U/L (7-56) 09/03/17 21:50 Alkaline Phosphatase 87 U/L (38-126) 09/03/17 21:50 C-Reactive Protein 10.50 mg/L (0.0-9.9) H 09/03/17 21:50 Total Protein 7.7 g/dL (5.8-8.3) 09/03/17 21:50 Albumin 3.8 g/dL (3.0-4.8) 09/03/17 21:50 Globulin 3.9 gm/dL 09/03/17 21:50 Albumin/Globulin Ratio 1.0 (1.1-1.8) L 09/03/17 21:50 Triglycerides 57 mg/dL (35-160) 09/05/17 06:20 Cholesterol 251 mg/dL (130-200) H 09/05/17 06:20 LDL Cholesterol Direct 160 mg/dL (0-129) H 09/05/17 06:20 HDL Cholesterol 45 mg/dL (29-60) 09/05/17 06:20 Vitamin B12 388 pg/mL (239-931) 09/05/17 06:20 Folate > 20.0 ng/mL 09/05/17 06:20 TSH 3rd Generation 0.13 mIU/mL (0.46-4.68) L 09/05/17 05:00 - Constitutional Appears: Well, No Acute Distress - Head Exam Head Exam: ATRAUMATIC, NORMAL INSPECTION, NORMOCEPHALIC - Eye Exam Eye Exam: Normal appearance - ENT Exam ENT Exam: Normal External Ear Exam - Neck Exam Neck Exam: Normal Inspection - Respiratory Exam Respiratory Exam: NORMAL BREATHING PATTERN - Cardiovascular Exam Cardiovascular Exam: +S1 (Normal.), +S2 (Normal.). absent: JVD - GI/Abdominal Exam GI & Abdominal Exam: absent: Distended - Rectal Exam Rectal Exam: Deferred - Exam Additional comments: Deferred. - Extremities Exam Extremities Exam: Normal Inspection - Back Exam Back Exam: NORMAL INSPECTION - Neurological Exam Neurological Exam: Alert, Awake, Oriented x3 - Psychiatric Exam Psychiatric exam: Normal Affect, Normal Mood - Skin Skin Exam: Normal Color Assessment and Plan - Assessment and Plan (Free Text) Assessment: Lower abdominal pain. Constipation. Ashtma. Ischemic cardiomyopathy. SLE. History CVA. Anxiety. Depression. Plan: Percocet 5/325 I PO stat. Colace 200 mg PO x 1. Continue present management as per PMD.
[2017-09-06 07:02] LABS: INR 2.68 (0.93-1.08); PROTHROMBIN TIME 31.4 SECONDS (9.4-12.5)
[2017-09-06] MEDS: Cholecalciferol 1,000 INTLU TAB PO SCH (09:37)
[2017-09-06] MEDS: Potassium Chloride 20 mEq ER Tab PO SCH (09:39)
[2017-09-06] MEDS: Micafungin 100 MG in Sodium Chloride 0.9% 100 ML IV SCH (09:42)
[2017-09-06] MEDS: Fluticasone Nasal 50 mcg/Spray NS SCH (10:30)
--- NOTE | 2017-09-06 12:09 | CP.PCM.PN ---
Subjective - Date & Time of Evaluation Date of Evaluation: 09/06/17 Time of Evaluation: 10:15 - Subjective Subjective: Patient is comfortable in bed, no nausea, no diarrhea, no fever or chills, has no pain along the right arm port area. Objective - Vital Signs/Intake and Output Vital Signs (last 24 hours): Temp Pulse Resp BP Pulse Ox 980 F H 60 20 91/69 L 95 09/06/17 06:00 09/06/17 06:00 09/06/17 06:00 09/06/17 06:00 09/06/17 06:00 Intake and Output: 09/06/17 09/06/17 06:59 18:59 Intake Total 514 Balance 514 - Medications Medications: Current Medications Alprazolam (Xanax) 0.25 mg PO DAILY [facility] PRN Reason: Protocol Stop: 09/13/17 10:01 Amiodarone HCl (Cordarone) 200 mg PO DAILY [facility] Last Admin: 09/05/17 09:18 Dose: 200 mg Cholecalciferol (Vitamin D) 1,000 intlu PO DAILY [facility] Last Admin: 09/05/17 09:18 Dose: 1,000 intlu Famotidine (Pepcid) 20 mg PO DAILY [facility] Last Admin: 09/05/17 09:18 Dose: 20 mg Fluticasone Propionate (Flonase) 1 actuation NS DAILY [facility] Last Admin: 09/05/17 14:38 Dose: 1 spr Folic Acid (Folic Acid) 1 mg PO DAILY [facility] Last Admin: 09/05/17 09:18 Dose: 1 mg Furosemide (Lasix) 40 mg IV DAILY [facility] Last Admin: 09/05/17 09:18 Dose: 40 mg Hydrocortisone (Cortef) 20 mg PO DAILY [facility] Micafungin Sodium 100 mg/ (Sodium Chloride) 100 mls @ 100 mls/hr IV DAILY [facility] PRN Reason: Protocol Stop: 09/17/17 23:31 Last Admin: 09/05/17 09:19 Dose: 100 mls/hr Milrinone Lactate/Dextrose (Primacor 20mg/100ml D5w) 100 mls @ 12.791 mls/hr IV .Q7H50M [facility]; 0.5 MCG/KG/MIN PRN Reason: Protocol Last Admin: 09/06/17 01:16 Dose: 12.791 mls/hr Lisinopril (Zestril) 2.5 mg PO DAILY [facility] Last Admin: 09/05/17 09:17 Dose: 2.5 mg Loratadine (Claritin) 10 mg PO DAILY [facility] Last Admin: 09/05/17 14:37 Dose: 10 mg Metoprolol Succinate (Toprol Xl) 25 mg PO QPM [facility] Last Admin: 09/05/17 17:45 Dose: 25 mg Oxycodone/Acetaminophen (Percocet 5/325 Mg Tab) 1 tab PO Q8 PRN PRN Reason: Pain, moderate (4-7) Stop: 09/08/17 14:01 Last Admin: 09/05/17 22:47 Dose: 1 tab Potassium Chloride (K-Dur 20 Meq Er Tab) 20 meq PO DAILY [facility] Last Admin: 09/05/17 09:18 Dose: 20 meq Warfarin Sodium (Coumadin) 2 mg PO 1800 [facility] PRN Reason: Protocol Last Admin: 09/05/17 17:45 Dose: 2 mg - Labs Labs: 09/05/17 06:20 09/05/17 06:20 PT 31.4 SECONDS (9.4-12.5) H 09/06/17 06:00 INR 2.68 (0.93-1.08) H 09/06/17 06:00 - Constitutional Appears: Chronically Ill - Head Exam Head Exam: NORMAL INSPECTION - ENT Exam ENT Exam: Mucous Membranes Moist - Neck Exam Neck Exam: absent: Meningismus - Respiratory Exam Respiratory Exam: Decreased Breath Sounds. absent: Rales - Cardiovascular Exam Cardiovascular Exam: +S1, +S2 - GI/Abdominal Exam GI & Abdominal Exam: Soft. absent: Tenderness - Extremities Exam Additional comments: right arm with port in place without surrounding erythema, no discharge, no tenderness Assessment and Plan - Assessment and Plan (Free Text) Plan: Assessment fungemia, source to be determined, R/O PICC line/port-related, R/O AICD related history of sepsis due to C. parapsilosis and C. glabrata fungemia and Enterococcus bacteremia probably from PICC line, unable to rule out endocarditis history of Sepsis due to right breast cellulitis/mastitis with purulent discharge, growing Serratia history of bilateral breast mastitis growing coagulase negative Staph and Klebsiella pneumoniae history of vaginal candidiasis SLE history of pulmonary emboli CVA asthma S/P ICD placement Plan continue mycamine; follow up repeat blood cx; would recommend RANJEET and discussed with Cardio - also suspicious about the port on her right arm which has been there for 1 1/2 years now - would recommend removal of the port if the yeast in the blood is the same Ashley glabrata in the blood in 2016 Overall prognosis is poor
[2017-09-06] MEDS: Oxycodone/Acetaminophen 5/325 mg Tab PO PRN ×2 (13:40→21:57)
--- NOTE | 2017-09-06 16:03 | PN ---
DATE: REASON FOR CONSULTATION AND FOLLOWUP: Congestive heart failure, cardiomyopathy, nonischemic on Primacor, cardiac evaluation, blood culture positive for fungemia, negative for gram-positive cocci. SUBJECTIVE: The patient denies any chest pain, shortness of breath, or any palpitation. OBJECTIVE: GENERAL: Not in apparent distress. VITAL SIGNS: Temperature afebrile, heart rate 81, blood pressure 141/97. HEENT: PERRLA. Extraocular muscles intact. NECK: Supple. No carotid bruit or thyromegaly. CHEST: Clear to auscultation. HEART: S1 and S2, regular. ABDOMEN: Soft. EXTREMITIES: Clubbing and cyanosis negative. LABORATORY DATA: Blood workup as follows: WBC 5.5, hemoglobin 12.2, hematocrit 39.9, platelet count 265. Chemistry shows sodium 144, potassium 4, chloride 106, carbon dioxide 28, anion gap of 14. BUN 22, creatinine 1. TSH 0.13. Triglyceride 57, cholesterol 251, LDL 160, HDL 45. IMPRESSION: Hyperlipidemia, history of fungemia in the blood in the past, cardiomyopathy, nonischemic status post automatic implantable cardioverter-defibrillator, mitral and tricuspid regurgitation. Patient had an echocardiography done yesterday, repeat, no obvious vegetation noted. Severely dilated left ventricular systolic function, severely impaired mild mitral regurgitation noted. RVSP 33. No vegetation noted. RECOMMENDATION: Continue antibiotics as per ID. Continue amiodarone. Continue Coumadin, goal is to keep INR between 2 to 2.5. Monitor H and H. Continue Lasix. We will change to p.o. and discontinue telemetry. Continue Primacor. Patient is already on Primacor at home. Continue FELIZ inhibitors, 2.5 mg of lisinopril. We will change to Coreg as well from metoprolol with holding parameters. We will also start atorvastatin because patient's cholesterol is high. We will start Coreg 6.25 b.i.d. with holding parameters, hold for systolic less than 120. No evidence of endocarditis noted in the echo. Thank you Dr. Tariq for providing us the opportunity in taking care of the patient, Stephanie Siddiqui. Roberto Jones MD [facility] # [id number]
--- NOTE | 2017-09-06 20:27 | PN ---
DATE: 09/06/2017 PULMONARY PROGRESS NOTE REFERRING PHYSICIAN: Estelle Tariq M.D. SUBJECTIVE: She is lying in the bed, head at 45 degrees. Feels better. No headache. No rhinitis. No nausea. No vomiting. No diarrhea. No leg pain or leg swelling. OBJECTIVE: GENERAL: In no acute distress. VITAL SIGNS: Temperature is 98, heart rate is 80, respiratory rate is 20, blood pressure is 105/75. HEENT: Moist mucous membranes. Crowded airway. Mallampati score is 4. NECK: Supple. No JVD. LUNGS: Has a fair airflow with rhonchi. HEART: S1 and S2. ABDOMEN: Soft and nontender. No organomegaly. EXTREMITIES: There is no edema. NEUROLOGIC: Awake, alert, and follows simple commands. MEDICATIONS: She is on Claritin 10 mg daily, amiodarone 200 mg daily, Coreg 6.25 mg twice a day, hydrocortisone 20 mg daily, Coumadin 2 mg will be given today, Flonase one spray each nostril daily, folic acid 1 mg daily, potassium 20 mEq daily, Lasix 40 mg twice a day, Lipitor 40 mg daily, micafungin is 100 mg daily, Pepcid 20 mg daily, Percocet 5/325 one tab twice a day p.r.n., milrinone IV drip, vitamin D 1000 international unit daily, Xanax 0.2 mg daily, Zestril 2.5 mg daily. LABORATORY DATA: Reviewed. Noted INR today 2.68. Microbiology, blood cultures have been negative. IMPRESSION AND PLAN: Recurrent fungemia, has automatic implantable cardioverter defibrillator, peripherally inserted central catheter line, milrinone dependent; has systemic lupus erythematosus; steroid dependent; renal insufficiency; chronic obstructive lung disease; may have sleep apnea syndrome. I had a long discussion with the patient about steroids and recurrent infection. She is lifelong on steroids. We will decrease hydrocortisone to 50 mg p.o. for now, watch for renal insufficiency closely. Continue antibiotics as per Infectious Diseases, need to take her peripherally inserted central catheter line out and if we can peripheral line that will be great. If not, may have to place another peripherally inserted central catheter line in the left upper extremity. Thank you and we will follow with you. Roberto Mcarthur MD [facility] # [id number]
[2017-09-07] MEDS: Oxycodone/Acetaminophen 5/325 mg Tab PO PRN ×2 (02:21→19:24)
[2017-09-07] MEDS: Milrinone 20mg/100ml D5W 100 ML IV SCH ×4 (02:31→22:30)
--- NOTE | 2017-09-07 07:06 | CON ---
DATE: ENDOCRINOLOGY CONSULTATION HISTORY OF PRESENT ILLNESS: This is a 52-year-old female with known history of adrenal insufficiency, currently on hydrocortisone replacement therapy and admitted now with bacteremia and being referred also for endocrine evaluation and management. PAST MEDICAL HISTORY: As mentioned above, history of adrenal insufficiency and currently on hydrocortisone taken as 20 mg twice a day. She is currently on hydrocortisone 15 mg once daily in the morning for inpatient management. History of hypertensive cardiovascular disease and dyslipidemia, history of dilated cardiomyopathy and had a prior AICD insertion as noted. She also had previously endocarditis and congenital patent foramen ovale valvular heart disorder. She also has previous cerebrovascular event, having had two prior strokes with mild residual right-sided weakness. She is also currently on oral anticoagulation therapy with a prior history of pulmonary embolism. Moreover, she has also been diagnosed of systemic lupus and currently has right breast cellulitis with ongoing antibiotic management. She also has generalized anxiety and depression, on psychotropic medications. FAMILY HISTORY: Positive for hypertension and heart disease. SOCIAL HISTORY: Patient is a former smoker, but with no other known substance use and only social use of alcohol. Has a very supportive family, otherwise. REVIEW OF SYSTEMS: Admits to generalized body weakness with easy fatigability and tiredness and occasional lapses of hypersomnolence and lethargy. Also admits to bifrontal headaches with dizziness and lightheadedness, worse in the last few days prior to admission. No chest pains or palpitations, but admits to progressive shortness of breath especially on exertion. Her oral intake is variable with nausea, dyspepsia and habitual constipation. PHYSICAL EXAMINATION: GENERAL: This is an overweight female, in no apparent distress. VITAL SIGNS: Blood pressure 150/90, pulse of 70 beats per minute and regular, temperature 98, respirations 20, height is 5 feet 2 inches, weight is 187 pounds. HEENT: Head normocephalic. Eyes with pink conjunctivae. Funduscopy not possible at this time. Ears, nose and throat otherwise normal. NECK: Supple. Thyroid gland is normal in size. No carotid bruits, cervical adenopathy. CARDIOPULMONARY: Some adynamic precordium. S1, S2 is rapid and regular. LUNGS: Clear to auscultation. ABDOMEN: Flat, soft with positive bowel sounds. EXTREMITIES: No peripheral edema. Pulses are +2 bilaterally. LABORATORY DATA: Her chemistry showed a BUN of 22, sodium 144, potassium 4.1, chloride 106, CO2 28, glucose 97 and creatinine 1.0. Her TSH is 0.13. C-reactive protein is 10.50. Hemoglobin A1c is 6.3%. ASSESSMENT: This is a 52-year-old female with bacteremia and significant history of prior endocarditis with underlying dilated cardiomyopathy, currently with an AICD placement as noted and is now being referred also for endocrine evaluation because of significant history of adrenal insufficiency, currently on steroid replacement therapy. As she is hemodynamically stable and seems clinically euadrenal, we will hold off intravenous steroid therapy at this point, pending the oral serum cortisol level to be done as a fasting level tomorrow morning as ordered. We will continue the hydrocortisone being given orally at 15 mg once daily as given, and we will adjust accordingly to optimize metabolic control. We will also obtain a comprehensive thyroid hormonal profile with a slightly suppressed TSH value obtained initially, which could most likely be related to acute sick euthyroid syndrome, although we have to exclude off the possibility of another autoimmune endocrinopathy such as subclinical hyperthyroidism - this can be confirmed with the comprehensive thyroid hormonal profile to be obtained also tomorrow morning. We will obtain serial chemistries and supplement accordingly needed. We will follow. Dafne Dutton MD
[2017-09-07 07:17] LABS: INR 2.22 (0.93-1.08); PROTHROMBIN TIME 25.9 SECONDS (9.4-12.5)
[2017-09-07 07:20] LABS: ALB/GLOB RATIO 0.9 (1.1-1.8); ALBUMIN 3.2 g/dL (3.0-4.8); ALT/SGPT 25 U/L (7-56); AST/SGOT 17 U/L (14-36); BLOOD UREA NITROGEN 18 mg/dL (7-21); CALCIUM 8.5 mg/dL (8.4-10.5); GFR AFRICAN-AMERICAN > 60; GFR NON-AFRICAN AMERICAN > 60
[2017-09-07 07:28] LABS: B-TYPE NATRIURETIC PEPTIDE 1580 pg/mL (0-450)
[2017-09-07 07:31] LABS: FREE T4 1.47 ng/dL (0.78-2.19); T4 10.4 ug/dL (5.5-11.0)
--- NOTE | 2017-09-07 08:40 | PN ---
DATE: 09/06/2017 SUBJECTIVE: The patient is seen and examined at the bedside, sitting on the chair, complaining about body aches and lower abdominal pain. According to patient, she has not had bowel movements in two days, had constipation, seen by the host physician, Dr. Costello and got some stool softener; otherwise, she is getting Percocet. No nausea. No headache. No chest pain. No palpitation. No fever. No chills. No dysuria. No hematuria. No hematochezia. PHYSICAL EXAMINATION VITAL SIGNS: Temperature 98, pulse 81, blood pressure 141/97. HEENT: Head: Normocephalic, atraumatic. Eyes: PERRLA. Extraocular movements are intact. Conjunctivae are clear. Nose patent. Mucous membranes are moist. NECK: Supple. No carotid bruit. No JVD or thyromegaly. CHEST: Bilaterally symmetrical. HEART: S1 and S2 positive. LUNGS: Clear to auscultation. ABDOMEN: Soft. Bowel sounds are present. No organomegaly. EXTREMITIES: No edema. No cyanosis. NEUROLOGIC: The patient is awake and alert, moving all 4 extremities with no focal deficit. MEDICATIONS: carvedilol, fluticasone, folic acid, potassium, Lipitor, famotidine, oxycodone, milrinone drip, Xanax, and lisinopril. LABORATORY DATA: We do not have recent lab today, but I reviewed old labs. ASSESSMENT AND PLAN: a 52-year-old lady with constipation and got stool softener, has recurrent fungemia, has automatic implantable cardioverter defibrillator and pacemaker, peripherally inserted central catheter line, milrinone dependant, noncompliant. Patient's tube building machine operator is Dr. Kahn in [facility]. Patient has regular followup with Dr. Kahn, has history of systemic lupus erythematosus, steroid dependent, immunocompromised, chronic lung disease, sleep apnea syndrome, anemia and chronic pain syndrome. Patient is seen by the tube building machine operator, Dr. Jones. Echocardiogram is done. Patient does not want to remove pacemaker peripherally inserted central catheter line and defibrillator, length of time discussion regarding the patient, naw as per Infectious Disease. Discussion done with Dr. Snowden. Infectious Disease is on the case. Sleep apnea precautions. Getting tapering dose of hydrocortisone. Gastrointestinal and deep venous thrombosis prophylaxis. Physical therapy. We will follow up. Estelle Tariq MD [facility]
[2017-09-07] MEDS: Micafungin 100 MG in Sodium Chloride 0.9% 100 ML IV SCH (09:29)
[2017-09-07] MEDS: Cholecalciferol 1,000 INTLU TAB PO SCH (09:44)
[2017-09-07] MEDS: Potassium Chloride 20 mEq ER Tab PO SCH (09:45)
[2017-09-07] MEDS: Fluticasone Nasal 50 mcg/Spray NS SCH (10:11)
--- NOTE | 2017-09-07 11:38 | PN ---
DATE: 09/07/2017 REASON FOR CONSULTATION: Congestive heart failure, cardiomyopathy, nonischemic on Primacor, cardiac evaluation, blood culture positive for fungemia, negative for bacteria so far. SUBJECTIVE: The patient denies any chest pain, shortness of breath or any palpitation. OBJECTIVE: GENERAL: Not in apparent distress, walking in the hallway. VITAL SIGNS: Temperature afebrile, heart rate 51, blood pressure 114/84. HEENT: PERRLA. Extraocular muscles intact. NECK: Supple. No carotid bruit or thyromegaly. CHEST: Clear to auscultation. HEART: S1 and S2, regular. ABDOMEN: Soft. EXTREMITIES: Clubbing and cyanosis negative. LABORATORY DATA: Blood workup as follows: WBC 5.5, hemoglobin 12.2, hematocrit 39.9, platelet count 265. Chemistry shows sodium 140, potassium 4.1, chloride 103, carbon dioxide 33, anion gap of 10, BUN 18, creatinine 0.9. TSH 1.10. Total cholesterol 251. LDL 160, HDL 45. IMPRESSION: Nonischemic cardiomyopathy status post automatic implantable cardioverter-defibrillator, hypertension, hyperlipidemia, fungemia in the blood in the past, cardiomyopathy, nonischemic status post automatic implantation defibrillator, mitral tricuspid regurgitation. The patient had echocardiography done yesterday. No obvious vegetation noted, severely dilated LV, severely decreased LV function, RV systolic pressure of 33. RECOMMENDATION: We will discuss with ID. if the patient needs RANJEET , we will arrange. I will continue current treatment. CVS status is stable. We will discuss with you. Thank you, Dr. Tariq, for providing us the opportunity in taking care of the patient, Stephanie Siddiqui. Roberto Jones MD
--- NOTE | 2017-09-07 13:06 | CP.PCM.PN ---
<Sandee Caceres - Last Filed: 09/07/17 13:00> Subjective - Date & Time of Evaluation Date of Evaluation: 09/07/17 Time of Evaluation: 11:30 - Subjective Subjective: Chief Complaint: Depression, Anxiety related to Prognosis 52yr female w/ history of non-ischemic cardiomyopathy s/p AICD , generator [place] [address] Kahn, s/p endocarditis, on heart transplant list RWJ, patent foramen ovale, ASD, on LifeVest milirone drip @ home & coumadin , SLE, stroke, R sided weakness, Pulmonary embolism, Anxiety, depression, h/o vaginal candiasis, & R breast cellulitis/mastitis. On 06/08/17 PICC inserted for treatment w/ IV anti-fungals (Blood culture = (+) Ashley parapsilosis) and primacor drip (LVEF 12.4%, systolic function EF 15-20%, AICD/PPM in RA/RV). 2017 patient was treated at home with IV infusion nurse services. ID believed that Two pacemakers (Chest wall) & (L flank), may be source of yeast infection. Pt is a High risk for removal of both pacemakers, real EF 10% or less so she was treated medically x 4 weeks w. antifungals. On 09/01/17, repeat cultures were done in Emergency Dept [place] [facility] [place] and they resulted with S. aureas & coag-neg staph PNA FISH. Pt has R arm PICC line from admission still in place. Today, pt seen at bedside voicing concerns about the reduction of her oral steroids. Pt appears to not understand her current prognosis and plan of care. Lengthy discussion held with patient and recommend further residential substance abuse counselor by Psych and Pastoral care. Denies fever, chills, headache, nausea, vomiting, diarrhea, constipation or urinary changes. Objective - Vital Signs/Intake and Output Vital Signs (last 24 hours): Temp Pulse Resp BP Pulse Ox 97.6 F 75 18 97/58 L 94 L 09/07/17 05:57 09/07/17 11:14 09/07/17 07:50 09/07/17 11:14 09/07/17 05:57 Intake and Output: 09/07/17 09/07/17 06:59 18:59 Intake Total 240 Balance 240 - Medications Medications: Current Medications Alprazolam (Xanax) 0.25 mg PO DAILY [facility] PRN Reason: Protocol Stop: 09/13/17 10:01 Last Admin: 09/07/17 09:28 Dose: 0.25 mg Amiodarone HCl (Cordarone) 200 mg PO DAILY [facility] Last Admin: 09/07/17 09:45 Dose: 200 mg Atorvastatin Calcium (Lipitor) 40 mg PO DIN [facility] Last Admin: 09/06/17 17:15 Dose: 40 mg Carvedilol (Coreg) 6.25 mg PO BID [facility] Last Admin: 09/07/17 09:46 Dose: Not Given Cholecalciferol (Vitamin D) 1,000 intlu PO DAILY [facility] Last Admin: 09/07/17 09:44 Dose: 1,000 intlu Famotidine (Pepcid) 20 mg PO DAILY [facility] Last Admin: 09/07/17 09:45 Dose: 20 mg Fluticasone Propionate (Flonase) 1 actuation NS DAILY [facility] Last Admin: 09/07/17 10:11 Dose: 2 spr Folic Acid (Folic Acid) 1 mg PO DAILY [facility] Last Admin: 09/07/17 09:44 Dose: 1 mg Furosemide (Lasix) 40 mg PO 0800,1400 [facility] Last Admin: 09/07/17 07:55 Dose: 40 mg Hydrocortisone (Cortef) 15 mg PO DAILY [facility] Last Admin: 09/07/17 10:13 Dose: 15 mg Micafungin Sodium 100 mg/ (Sodium Chloride) 100 mls @ 100 mls/hr IV DAILY [facility] PRN Reason: Protocol Stop: 09/17/17 23:31 Last Admin: 09/07/17 09:29 Dose: 100 mls/hr Milrinone Lactate/Dextrose (Primacor 20mg/100ml D5w) 100 mls @ 12.791 mls/hr IV .Q7H50M [facility]; 0.5 MCG/KG/MIN PRN Reason: Protocol Last Admin: 09/07/17 11:14 Dose: 12.791 mls/hr Lisinopril (Zestril) 2.5 mg PO DAILY [facility] Last Admin: 09/07/17 09:46 Dose: Not Given Loratadine (Claritin) 10 mg PO DAILY [facility] Last Admin: 09/07/17 09:46 Dose: 10 mg Oxycodone/Acetaminophen (Percocet 5/325 Mg Tab) 1 tab PO BID PRN PRN Reason: Pain, moderate (4-7) Stop: 09/09/17 10:13 Last Admin: 09/07/17 02:21 Dose: 1 tab Potassium Chloride (K-Dur 20 Meq Er Tab) 20 meq PO DAILY [facility] Last Admin: 09/07/17 09:45 Dose: 20 meq Warfarin Sodium (Coumadin) 2 mg PO 1800 [facility] PRN Reason: Protocol Last Admin: 09/06/17 17:15 Dose: 2 mg - Labs Labs: 09/05/17 06:20 09/07/17 06:45 PT 25.9 SECONDS (9.4-12.5) H 09/07/17 06:45 INR 2.22 (0.93-1.08) H 09/07/17 06:45 - Constitutional Appears: Chronically Ill - Head Exam Head Exam: ATRAUMATIC, NORMAL INSPECTION, NORMOCEPHALIC - Eye Exam Eye Exam: EOMI, Normal appearance, PERRL Pupil Exam: NORMAL ACCOMODATION, PERRL Additional comments: corrective glasses in place. - ENT Exam ENT Exam: Mucous Membranes Moist, Normal Exam - Neck Exam Neck Exam: Full ROM, Normal Inspection - Respiratory Exam Respiratory Exam: Clear to Ausculation Bilateral, NORMAL BREATHING PATTERN - Cardiovascular Exam Cardiovascular Exam: REGULAR RHYTHM, +S1, +S2. absent: Murmur - GI/Abdominal Exam GI & Abdominal Exam: Soft, Normal Bowel Sounds. absent: Tenderness - Extremities Exam Extremities Exam: Full ROM, Normal Capillary Refill, Normal Inspection. absent : Joint Swelling, Pedal Edema - Back Exam Back Exam: NORMAL INSPECTION - Neurological Exam Neurological Exam: Alert, Awake, CN II-XII Intact, Normal Gait, Oriented x3 - Psychiatric Exam Psychiatric exam: Anxious, Depressed - Skin Skin Exam: Dry, Intact, Normal Color, Warm Assessment and Plan (1) Elevated erythrocyte sedimentation rate Status: Acute (2) Anemia, iron deficiency Status: Acute (3) Positive blood culture Status: Acute (4) Lupus Status: Chronic (5) Abdominal pain Status: Acute (6) CHF (congestive heart failure) Status: Acute (7) Dehydration Status: Acute (8) Fungemia Status: Acute (9) Intractable pain Status: Acute (10) Whole body pain Status: Acute (11) H/O cellulitis of skin with lymphangitis Assessment & Plan: H/O BILATERAL BREAST Status: Resolved (12) Mastitis in female Assessment & Plan: H/O R breast Status: Resolved (13) Vaginal candidiasis Assessment & Plan: s/p treatment Status: Resolved (14) Pulmonary embolism Status: Chronic - Assessment and Plan (Free Text) Plan: RANJEET scheduled. Daily Coumadin. Labs ordered. Psych & Pastoral care triggered for counseling on her poor prognosis. Endocrine workup for renal insufficiency. No rheumatic evaluation for Lupus NOT available at this time. PO steroids reduction to reduce further immunosupression & fungal growth. IV micafungin for POSITIVE blood culture on 09/01 = S. aureas & coag-neg staph PNA FISH. R arm PICC line removal pending? VTE/GI prophlyaxis. Refused Cpap. pain management: percocet 1 tab q8hr Consults: Endo - Dr. Dutton Psych - Dr. Ketty Frederick Pain Mnmnt - Dr. David Gooden - Dr. Metz / Dr. Snowden Cardio - Dr. Jones Pulmonary - Reviewed: ECHO = LVEF 11.7%, L ventricle severe dilation, systolic function severely impaired, global hypokinesis of L ventricle. ECG = ABNORMAL, SR w. 1AVB w. PVC, possible L atrial enlargement, L anterior fasicular block, T wave abn, consider lateral ischemia, prolonged QT 06/10/2017 Blood culture = (+) Ashley parapsilosis 06/2017 ECHO = LVEF 12.4%, systolic function EF 15-20%, AICD/PPM in RA/RV <Estelle Tariq - Last Filed: 09/07/17 22:43> Objective - Vital Signs/Intake and Output Vital Signs (last 24 hours): Temp Pulse Resp BP Pulse Ox 98.6 F 71 18 96/71 L 94 L 09/07/17 18:29 09/07/17 18:29 09/07/17 18:29 09/07/17 18:29 09/07/17 05:57 - Medications Medications: Current Medications Alprazolam (Xanax) 0.25 mg PO DAILY [facility] PRN Reason: Protocol Stop: 09/13/17 10:01 Last Admin: 09/07/17 09:28 Dose: 0.25 mg Amiodarone HCl (Cordarone) 200 mg PO DAILY [facility] Last Admin: 09/07/17 09:45 Dose: 200 mg Atorvastatin Calcium (Lipitor) 40 mg PO DIN [facility] Last Admin: 09/07/17 17:33 Dose: 40 mg Carvedilol (Coreg) 6.25 mg PO BID [facility] Last Admin: 09/07/17 17:32 Dose: Not Given Cholecalciferol (Vitamin D) 1,000 intlu PO DAILY [facility] Last Admin: 09/07/17 09:44 Dose: 1,000 intlu Famotidine (Pepcid) 20 mg PO DAILY [facility] Last Admin: 09/07/17 09:45 Dose: 20 mg Fluticasone Propionate (Flonase) 1 actuation NS DAILY [facility] Last Admin: 09/07/17 10:11 Dose: 2 spr Folic Acid (Folic Acid) 1 mg PO DAILY [facility] Last Admin: 09/07/17 09:44 Dose: 1 mg Furosemide (Lasix) 40 mg PO 0800,1400 [facility] Last Admin: 09/07/17 13:19 Dose: 40 mg Hydrocortisone (Cortef) 20 mg PO DAILY [facility] Hydrocortisone (Cortef) 20 mg PO QPM [facility] Last Admin: 09/07/17 20:19 Dose: 20 mg Micafungin Sodium 100 mg/ (Sodium Chloride) 100 mls @ 100 mls/hr IV DAILY [facility] PRN Reason: Protocol Stop: 09/17/17 23:31 Last Admin: 09/07/17 09:29 Dose: 100 mls/hr Milrinone Lactate/Dextrose (Primacor 20mg/100ml D5w) 100 mls @ 12.791 mls/hr IV .Q7H50M [facility]; 0.5 MCG/KG/MIN PRN Reason: Protocol Last Admin: 09/07/17 22:30 Dose: Not Given Lisinopril (Zestril) 2.5 mg PO DAILY [facility] Last Admin: 09/07/17 09:46 Dose: Not Given Loratadine (Claritin) 10 mg PO DAILY [facility] Last Admin: 09/07/17 09:46 Dose: 10 mg Oxycodone/Acetaminophen (Percocet 5/325 Mg Tab) 1 tab PO BID PRN PRN Reason: Pain, moderate (4-7) Stop: 09/09/17 10:13 Last Admin: 09/07/17 19:24 Dose: 1 tab Potassium Chloride (K-Dur 20 Meq Er Tab) 20 meq PO DAILY [facility] Last Admin: 09/07/17 09:45 Dose: 20 meq Warfarin Sodium (Coumadin) 2 mg PO 1800 [facility] PRN Reason: Protocol Last Admin: 09/07/17 17:33 Dose: 2 mg - Labs Labs: 09/07/17 13:30 09/07/17 06:45 PT 25.9 SECONDS (9.4-12.5) H 09/07/17 06:45 INR 2.22 (0.93-1.08) H 09/07/17 06:45 Assessment and Plan - Assessment and Plan (Free Text) Plan: 52yr female w/ history of non-ischemic cardiomyopathy s/p AICD , [place] [address] Kahn, s/p endocarditis, on heart transplant list RW, patent foramen ovale, ASD, on LifeVest milirone drip @ home & coumadin , SLE, stroke, R sided weakness, Pulmonary embolism, Anxiety, depression, h/o vaginal candiasis, & R breast cellulitis/mastitis. On 06/08/17 PICC inserted for treatment w/ IV anti-fungals (Blood culture = (+) Ashley parapsilosis) and primacor drip (LVEF 12.4%, systolic function EF 15-20%, AICD/PPM in RA/RV). 2017 patient was treated at home with IV infusion nurse services. ID believed that Two pacemakers (Chest wall) & (L flank), may be source of yeast infection. Pt is a High risk for removal of both pacemakers, real EF 10% or less so she was treated medically x 4 weeks w. antifungals. On 09/01/17, repeat cultures were done in Emergency Dept of [facility] and they resulted with S. aureas & coag-neg staph PNA FISH. Pt has R arm PICC line from admission still in place. Today, pt seen at bedside voicing concerns about the reduction of her oral steroids. Pt appears to not understand her current prognosis and plan of care. Lengthy discussion held with patient and recommend further residential substance abuse counselor by Psych and Pastoral care. Denies fever, chills, headache, nausea, vomiting, diarrhea, constipation or urinary changes. pt is seen and examined at bed side . looking comfortble but anxious , agreed all above, chart med and labs noted . d/d with communications engineer . will f/u
[2017-09-07 13:37] LABS: HEMOGLOBIN 12.1 g/dL (12.0-16.0); MEAN CORPUSCULAR HEMOGLOBIN 25.7 pg (25.0-35.0); MEAN CORPUSCULAR HGB CONC 30.6 g/dl (31.0-37.0); MEAN PLATELET VOLUME 10.6 fl (7.0-11.0); RBC 4.7 10^6/uL (3.5-6.1); RED CELL DISTRIBUTION WIDTH 15.1 % (11.5-14.5); WHITE BLOOD COUNT 5.2 10^3/ul (4.5-11.0)
--- NOTE | 2017-09-07 14:08 | CP.PCM.PN ---
Subjective - Date & Time of Evaluation Date of Evaluation: 09/07/17 Time of Evaluation: 09:35 - Subjective Subjective: Comfortable, no pain along right arm port, no fevers, no diarrhea. Objective - Vital Signs/Intake and Output Vital Signs (last 24 hours): Temp Pulse Resp BP Pulse Ox 97.6 F 59 L 18 110/73 94 L 09/07/17 05:57 09/07/17 05:57 09/07/17 05:57 09/07/17 05:57 09/07/17 05:57 Intake and Output: 09/06/17 09/07/17 18:59 06:59 Intake Total 240 Balance 240 - Medications Medications: Current Medications Alprazolam (Xanax) 0.25 mg PO DAILY [facility] PRN Reason: Protocol Stop: 09/13/17 10:01 Last Admin: 09/06/17 09:39 Dose: 0.25 mg Amiodarone HCl (Cordarone) 200 mg PO DAILY [facility] Last Admin: 09/06/17 09:28 Dose: 200 mg Atorvastatin Calcium (Lipitor) 40 mg PO DIN [facility] Last Admin: 09/06/17 17:15 Dose: 40 mg Carvedilol (Coreg) 6.25 mg PO BID [facility] Last Admin: 09/06/17 17:15 Dose: 6.25 mg Cholecalciferol (Vitamin D) 1,000 intlu PO DAILY [facility] Last Admin: 09/06/17 09:37 Dose: 1,000 intlu Famotidine (Pepcid) 20 mg PO DAILY [facility] Last Admin: 09/06/17 09:39 Dose: 20 mg Fluticasone Propionate (Flonase) 1 actuation NS DAILY [facility] Last Admin: 09/06/17 10:30 Dose: Not Given Folic Acid (Folic Acid) 1 mg PO DAILY [facility] Last Admin: 09/06/17 09:39 Dose: 1 mg Furosemide (Lasix) 40 mg PO 0800,1400 [facility] Last Admin: 09/06/17 13:39 Dose: 40 mg Hydrocortisone (Cortef) 15 mg PO DAILY [facility] Micafungin Sodium 100 mg/ (Sodium Chloride) 100 mls @ 100 mls/hr IV DAILY [facility] PRN Reason: Protocol Stop: 09/17/17 23:31 Last Admin: 09/06/17 09:42 Dose: 100 mls/hr Milrinone Lactate/Dextrose (Primacor 20mg/100ml D5w) 100 mls @ 12.791 mls/hr IV .Q7H50M [facility]; 0.5 MCG/KG/MIN PRN Reason: Protocol Last Admin: 09/07/17 02:31 Dose: 12.791 mls/hr Lisinopril (Zestril) 2.5 mg PO DAILY [facility] Last Admin: 09/06/17 09:38 Dose: 2.5 mg Loratadine (Claritin) 10 mg PO DAILY [facility] Last Admin: 09/06/17 09:39 Dose: 10 mg Oxycodone/Acetaminophen (Percocet 5/325 Mg Tab) 1 tab PO BID PRN PRN Reason: Pain, moderate (4-7) Stop: 09/09/17 10:13 Last Admin: 09/07/17 02:21 Dose: 1 tab Potassium Chloride (K-Dur 20 Meq Er Tab) 20 meq PO DAILY [facility] Last Admin: 09/06/17 09:39 Dose: 20 meq Warfarin Sodium (Coumadin) 2 mg PO 1800 [facility] PRN Reason: Protocol Last Admin: 09/06/17 17:15 Dose: 2 mg - Labs Labs: 09/05/17 06:20 09/05/17 06:20 PT 31.4 SECONDS (9.4-12.5) H 09/06/17 06:00 INR 2.68 (0.93-1.08) H 09/06/17 06:00 - Constitutional Appears: Non-toxic, Chronically Ill - Head Exam Head Exam: NORMAL INSPECTION - ENT Exam ENT Exam: Mucous Membranes Moist - Neck Exam Neck Exam: absent: Meningismus - Respiratory Exam Respiratory Exam: Decreased Breath Sounds - Cardiovascular Exam Cardiovascular Exam: +S1, +S2 - GI/Abdominal Exam GI & Abdominal Exam: Soft. absent: Tenderness Assessment and Plan - Assessment and Plan (Free Text) Plan: Assessment Ashley glabrata fungemia, R/O PICC line/port-related, R/O AICD related history of sepsis due to C. parapsilosis and C. glabrata fungemia and Enterococcus bacteremia probably from PICC line, unable to rule out endocarditis history of Sepsis due to right breast cellulitis/mastitis with purulent discharge, growing Serratia history of bilateral breast mastitis growing coagulase negative Staph and Klebsiella pneumoniae history of vaginal candidiasis SLE history of pulmonary emboli CVA asthma S/P ICD placement Plan continue mycamine; for RANJEET tomorrow as discussed with Dr. Jones recommend removal of PICC / port since it is the same Ashley glabrata in the blood in 2016 Overall prognosis is poor
--- NOTE | 2017-09-07 16:43 | PN ---
DATE: ENDOCRINOLOGY FOLLOWUP NOTE LOCATION: In room 264. SUBJECTIVE: This is a 52-year-old female with underlying significant dilated cardiomyopathy with an AICD in place and presenting here with bacteremia and generalized body weakness and is also being followed closely for metabolic management because of significant history of adrenal insufficiency as noted thereof. Her latest cortisol level done today showed a serum fasting cortisol of 0.4 which is quite low at this time considering that she has been on oral steroid therapy on the outpatient even prior to this admission. Her latest thyroid study showed a T4 of 10.4 with a TSH of 1.10 and an initial TSH of 0.13 indicative of the so-called acute sick euthyroid syndrome. Her latest chemistries showed a BUN of 18. Sodium 142, potassium 4.1, chloride 103, CO2 of 33. Glucose 76. Creatinine 0.9. So at this time, we will actually modify her oral steroid therapy as she remains hemodynamically stable at this time and we will increase her hydrocortisone to 20 mg b.i.d. as ordered. We will also be adding bedtime hydrocortisone with 20 mg at 9 p.m. daily as ordered. We will admit to start tonight. We will obtain serial chemistries and supplement accordingly as needed. We will obtain serial cortisol levels and adjust her dose regimen accordingly as given. We will await the ACTH level as ordered. We will obtain serial chemistries and supplement accordingly as needed. We will follow. Dafne Dutton MD
--- NOTE | 2017-09-07 20:10 | PN ---
DATE: 09/07/2017 PULMONARY PROGRESS NOTE REFERRING PHYSICIAN: Estelle Tariq MD SUBJECTIVE: She is out of bed to chair, feels better. No headache. No rhinitis. No nausea. No vomiting. No diarrhea. No leg pain or leg swelling. OBJECTIVE: GENERAL: Not in acute distress. VITAL SIGNS: Temperature is 98, heart rate is 75, respiratory rate is 20, blood pressure 102/60, pulse ox is 94% on room air. HEENT: Moist mucous membrane. No ulcer or thrush noted. NECK: Supple. No JVD. LUNGS: Has a fair airflow with few rhonchi. HEART: S1 and S2. ABDOMEN: Soft and nontender. No organomegaly. EXTREMITIES: There is no edema. NEUROLOGIC: Awake and alert, follows simple commands. MEDICATIONS: She is on Claritin 10 mg daily, amiodarone 200 mg daily, Coreg 6.25 mg twice a day, Cortef 50 mg p.o. daily, Coumadin 2 mg daily, Flonase one spray each nostril daily, folic acid 1 mg daily, potassium 20 mEq daily, Lasix 40 mg twice a day, Lipitor 40 mg daily, micafungin 100 mg daily, Pepcid 20 mg daily, Percocet 5/325 one tablet twice a day p.r.n. basis, milrinone IV drip, vitamin D 1000 international unit daily, Xanax 0.25 mg daily, Zestril 2.5 mg daily. LABORATORY DATA: Shows hemoglobin 12.1, hematocrit 39.5, WBC 5.2, platelet count is 223. INR 2.2. Chemistry shows sodium 142, potassium 4.1, chloride 103, bicarbonate 33, BUN 18, creatinine 0.9, glucose is 76, calcium is 8.5, AST 17, ALT 25, alk phos is 64. ProBNP is 1580, albumin is 3.2. T4 free is 1.47. Cortisol level in the morning is 0.4. IMPRESSION AND PLAN: Recurrent fungemia, has automatic implantable cardioverter defibrillator, also has a peripherally inserted central catheter line, also milrinone dependent, lupus steroid dependent, adrenal insufficiency, chronic lung disease, may have sleep apnea syndrome. I spoke to patient in detail about steroid side effect, recurrent infection, so seems like so far 50 mg working okay, will set on it, do not decrease further from here. If she is hypertensive or any sign of adrenal insufficiency, will increase steroids. Continue antibiotics as per Infectious Disease. Her peripherally inserted central catheter line need to be discontinued and new peripherally inserted central catheter line need to be placed. Thank you and we will follow with you. Roberto Mcarthur MD
--- NOTE | 2017-09-07 22:37 | CP.PCM.PN ---
Subjective - Date & Time of Evaluation Date of Evaluation: 09/07/17 Time of Evaluation: 22:37 - Subjective Subjective: Patient seen because of her complaint of lower abdomen. Pain is mild, not radiating, no associated symptoms. Denies nausea, diarrhoea, chest pain. Received percocet but not effective. Is for RANJEET in the morning. Medical record was reviewed. This 52 year old Abigail [place]amese woman was called in to ER because of positive blood culture, had generalized bodyache. PMH of endocarditis, non ischemic CMP, S/P AICD, patent foramen ovale, ASD, SLE, stroke, PE, anxiety,depression, right breast cellulitits, Objective - Vital Signs/Intake and Output Vital Signs (last 24 hours): Temp Pulse Resp BP Pulse Ox 98.6 F 71 18 96/71 L 94 L 09/07/17 18:29 09/07/17 18:29 09/07/17 18:29 09/07/17 18:29 09/07/17 05:57 - Medications Medications: Current Medications Acetaminophen (Tylenol 325mg Tab) 325 mg PO STAT STA Stop: 09/07/17 22:36 Alprazolam (Xanax) 0.25 mg PO DAILY [facility] PRN Reason: Protocol Stop: 09/13/17 10:01 Last Admin: 09/07/17 09:28 Dose: 0.25 mg Amiodarone HCl (Cordarone) 200 mg PO DAILY [facility] Last Admin: 09/07/17 09:45 Dose: 200 mg Atorvastatin Calcium (Lipitor) 40 mg PO DIN [facility] Last Admin: 09/07/17 17:33 Dose: 40 mg Carvedilol (Coreg) 6.25 mg PO BID [facility] Last Admin: 09/07/17 17:32 Dose: Not Given Cholecalciferol (Vitamin D) 1,000 intlu PO DAILY [facility] Last Admin: 09/07/17 09:44 Dose: 1,000 intlu Codeine Sulfate (Codeine) 30 mg PO STAT STA Stop: 09/07/17 22:37 Famotidine (Pepcid) 20 mg PO DAILY [facility] Last Admin: 09/07/17 09:45 Dose: 20 mg Fluticasone Propionate (Flonase) 1 actuation NS DAILY [facility] Last Admin: 09/07/17 10:11 Dose: 2 spr Folic Acid (Folic Acid) 1 mg PO DAILY [facility] Last Admin: 09/07/17 09:44 Dose: 1 mg Furosemide (Lasix) 40 mg PO 0800,1400 [facility] Last Admin: 09/07/17 13:19 Dose: 40 mg Hydrocortisone (Cortef) 20 mg PO DAILY [facility] Hydrocortisone (Cortef) 20 mg PO QPM [facility] Last Admin: 09/07/17 20:19 Dose: 20 mg Micafungin Sodium 100 mg/ (Sodium Chloride) 100 mls @ 100 mls/hr IV DAILY [facility] PRN Reason: Protocol Stop: 09/17/17 23:31 Last Admin: 09/07/17 09:29 Dose: 100 mls/hr Milrinone Lactate/Dextrose (Primacor 20mg/100ml D5w) 100 mls @ 12.791 mls/hr IV .Q7H50M [facility]; 0.5 MCG/KG/MIN PRN Reason: Protocol Last Admin: 09/07/17 22:30 Dose: Not Given Lisinopril (Zestril) 2.5 mg PO DAILY [facility] Last Admin: 09/07/17 09:46 Dose: Not Given Loratadine (Claritin) 10 mg PO DAILY [facility] Last Admin: 09/07/17 09:46 Dose: 10 mg Oxycodone/Acetaminophen (Percocet 5/325 Mg Tab) 1 tab PO BID PRN PRN Reason: Pain, moderate (4-7) Stop: 09/09/17 10:13 Last Admin: 09/07/17 19:24 Dose: 1 tab Potassium Chloride (K-Dur 20 Meq Er Tab) 20 meq PO DAILY [facility] Last Admin: 09/07/17 09:45 Dose: 20 meq Warfarin Sodium (Coumadin) 2 mg PO 1800 [facility] PRN Reason: Protocol Last Admin: 09/07/17 17:33 Dose: 2 mg - Labs Labs: 09/07/17 13:30 09/07/17 06:45 PT 25.9 SECONDS (9.4-12.5) H 09/07/17 06:45 INR 2.22 (0.93-1.08) H 09/07/17 06:45 Micro Results 09/03/17 09:50 Blood Blood Culture - Preliminary NO GROWTH AFTER 4 DAYS 09/03/17 09:25 Blood Blood Culture - Preliminary NO GROWTH AFTER 4 DAYS Most Recent Lab Values WBC 5.2 10^3/ul (4.5-11.0) 09/07/17 13:30 RBC 4.70 10^6/uL (3.5-6.1) 09/07/17 13:30 Hgb 12.1 g/dL (12.0-16.0) 09/07/17 13:30 Hct 39.5 % (36.0-48.0) 09/07/17 13:30 MCV 84.0 fl (80.0-105.0) 09/07/17 13:30 MCH 25.7 pg (25.0-35.0) 09/07/17 13:30 MCHC 30.6 g/dl (31.0-37.0) L 09/07/17 13:30 RDW 15.1 % (11.5-14.5) H 09/07/17 13:30 Plt Count 223 10^3/uL (120.0-450.0) 09/07/17 13:30 MPV 10.6 fl (7.0-11.0) 09/07/17 13:30 Gran % 62.5 % (50.0-68.0) 09/03/17 09:50 Lymph % (Auto) 30.0 % (22.0-35.0) 09/03/17 09:50 [place] % (Auto) 7.0 % (1.0-6.0) H 09/03/17 09:50 Eos % (Auto) 0.3 % (1.5-5.0) L 09/03/17 09:50 Baso % (Auto) 0.2 % (0.0-3.0) 09/03/17 09:50 Gran # 3.72 (1.4-6.5) 09/03/17 09:50 Lymph # (Auto) 1.8 (1.2-3.4) 09/03/17 09:50 [place] # (Auto) 0.4 (0.1-0.6) 09/03/17 09:50 Eos # (Auto) 0.0 (0.0-0.7) 09/03/17 09:50 Baso # (Auto) 0.01 K/mm3 (0.0-2.0) 09/03/17 09:50 ESR 40 mm/hr (0.0-20.0) H 09/03/17 21:50 PT 25.9 SECONDS (9.4-12.5) H 09/07/17 06:45 INR 2.22 (0.93-1.08) H 09/07/17 06:45 Sodium 142 mmol/L (132-148) 09/07/17 06:45 Potassium 4.1 mmol/L (3.6-5.0) 09/07/17 06:45 Chloride 103 mmol/L (98-107) 09/07/17 06:45 Carbon Dioxide 33 mmol/L (21-33) 09/07/17 06:45 Anion Gap 10 (10-20) 09/07/17 06:45 BUN 18 mg/dL (7-21) 09/07/17 06:45 Creatinine 0.9 mg/dl (0.7-1.2) 09/07/17 06:45 Est GFR ( Amer) > 60 09/07/17 06:45 Est GFR (Non-Af Amer) > 60 09/07/17 06:45 Random Glucose 76 mg/dL (70-110) 09/07/17 06:45 Hemoglobin A1c 6.3 % (4.2-6.5) 09/05/17 05:00 Calcium 8.5 mg/dL (8.4-10.5) 09/07/17 06:45 Iron 41 ug/dL (45-180) L 09/05/17 06:00 TIBC 294 ug/dL (265-497) 09/05/17 06:00 % Saturation 14 % (20-55) L 09/05/17 06:00 Total Bilirubin 0.1 mg/dL (0.2-1.3) L 09/07/17 06:45 AST 17 U/L (14-36) 09/07/17 06:45 ALT 25 U/L (7-56) 09/07/17 06:45 Alkaline Phosphatase 64 U/L (38-126) 09/07/17 06:45 C-Reactive Protein 10.50 mg/L (0.0-9.9) H 09/03/17 21:50 NT-Pro-B Natriuret Pep 1580 pg/mL (0-450) H 09/07/17 06:45 Total Protein 6.8 g/dL (5.8-8.3) 09/07/17 06:45 Albumin 3.2 g/dL (3.0-4.8) 09/07/17 06:45 Globulin 3.6 gm/dL 09/07/17 06:45 Albumin/Globulin Ratio 0.9 (1.1-1.8) L 09/07/17 06:45 Triglycerides 57 mg/dL (35-160) 09/05/17 06:20 Cholesterol 251 mg/dL (130-200) H 09/05/17 06:20 LDL Cholesterol Direct 160 mg/dL (0-129) H 09/05/17 06:20 HDL Cholesterol 45 mg/dL (29-60) 09/05/17 06:20 Vitamin B12 388 pg/mL (239-931) 09/05/17 06:20 Folate > 20.0 ng/mL 09/05/17 06:20 Free T4 1.47 ng/dL (0.78-2.19) 09/07/17 06:45 Thyroxine (T4) 10.4 ug/dL (5.5-11.0) 09/07/17 06:45 TSH 3rd Generation 1.10 mIU/mL (0.46-4.68) 09/07/17 06:45 Cortisol AM Sample 0.4 ug/dL (4.46-22.7) L 09/07/17 07:00 - Constitutional Appears: Well, No Acute Distress - Head Exam Head Exam: ATRAUMATIC, NORMAL INSPECTION, NORMOCEPHALIC - Eye Exam Eye Exam: Normal appearance - ENT Exam ENT Exam: Normal External Ear Exam - Neck Exam Neck Exam: Normal Inspection - Respiratory Exam Respiratory Exam: NORMAL BREATHING PATTERN - Cardiovascular Exam Cardiovascular Exam: absent: JVD - GI/Abdominal Exam GI & Abdominal Exam: absent: Distended - Rectal Exam Rectal Exam: Deferred - Exam Additional comments: Deferred. - Extremities Exam Extremities Exam: Normal Inspection - Back Exam Back Exam: NORMAL INSPECTION - Neurological Exam Neurological Exam: Alert, Awake - Psychiatric Exam Psychiatric exam: Normal Affect, Normal Mood - Skin Skin Exam: Normal Color Assessment and Plan - Assessment and Plan (Free Text) Assessment: Lower abdominal pain. Non ischemic cardiomyopathy. S/P AICD. Anxiety. Depression. Hx patent foramen ovale. Plan: Tylenol 325 mg PO x 1. Codeine phosphate 30 mg PO x 1. Continue present management . She is for RANJEET in AM.
[2017-09-08] MEDS: Milrinone 20mg/100ml D5W 100 ML IV SCH ×2 (06:54→16:10)
[2017-09-08 06:55] LABS: INR 2.07 (0.93-1.08); PROTHROMBIN TIME 24.2 SECONDS (9.4-12.5)
--- NOTE | 2017-09-08 07:41 | CP.PCM.PCO ---
Addendum Addendum: 09/08/17 07:38 Pt was seen two days ago this commercial lines underwriter signed off pt was not suicidal/homicidal/pt was not pychotic either pt knew her poor prognosis pt did not want to be followed up by psychiatrist moreover this commercial lines underwriter is not counseling service pt might benefit from the palliative care should pt's mental status will be change or in case of SI please reconsult discussed with 09/08/17
--- NOTE | 2017-09-08 11:05 | CP.PCM.PN ---
Subjective - Date & Time of Evaluation Date of Evaluation: 09/08/17 Time of Evaluation: 09:40 - Subjective Subjective: No fevers, no SOB, no pain along the right arm port, no diarrhea. For RANJEET today. Objective - Vital Signs/Intake and Output Vital Signs (last 24 hours): Temp Pulse Resp BP Pulse Ox 98.2 F 88 22 103/69 99 09/08/17 06:00 09/08/17 06:54 09/08/17 06:00 09/08/17 06:54 09/08/17 06:00 Intake and Output: 09/08/17 09/08/17 06:59 18:59 Intake Total 394 Output Total 2 Balance 392 - Medications Medications: Current Medications Alprazolam (Xanax) 0.25 mg PO DAILY [facility] PRN Reason: Protocol Stop: 09/13/17 10:01 Last Admin: 09/07/17 09:28 Dose: 0.25 mg Amiodarone HCl (Cordarone) 200 mg PO DAILY [facility] Last Admin: 09/07/17 09:45 Dose: 200 mg Atorvastatin Calcium (Lipitor) 40 mg PO DIN [facility] Last Admin: 09/07/17 17:33 Dose: 40 mg Carvedilol (Coreg) 6.25 mg PO BID [facility] Last Admin: 09/07/17 17:32 Dose: Not Given Cholecalciferol (Vitamin D) 1,000 intlu PO DAILY [facility] Last Admin: 09/07/17 09:44 Dose: 1,000 intlu Famotidine (Pepcid) 20 mg PO DAILY [facility] Last Admin: 09/07/17 09:45 Dose: 20 mg Fluticasone Propionate (Flonase) 1 actuation NS DAILY [facility] Last Admin: 09/07/17 10:11 Dose: 2 spr Folic Acid (Folic Acid) 1 mg PO DAILY [facility] Last Admin: 09/07/17 09:44 Dose: 1 mg Furosemide (Lasix) 40 mg PO 0800,1400 [facility] Last Admin: 09/08/17 08:43 Dose: Not Given Hydrocortisone (Cortef) 20 mg PO DAILY [facility] Hydrocortisone (Cortef) 20 mg PO QPM [facility] Last Admin: 09/07/17 20:19 Dose: 20 mg Micafungin Sodium 100 mg/ (Sodium Chloride) 100 mls @ 100 mls/hr IV DAILY [facility] PRN Reason: Protocol Stop: 09/17/17 23:31 Last Admin: 09/07/17 09:29 Dose: 100 mls/hr Milrinone Lactate/Dextrose (Primacor 20mg/100ml D5w) 100 mls @ 12.791 mls/hr IV .Q7H50M [facility]; 0.5 MCG/KG/MIN PRN Reason: Protocol Last Admin: 09/08/17 06:54 Dose: 12.791 mls/hr Lisinopril (Zestril) 2.5 mg PO DAILY [facility] Last Admin: 09/07/17 09:46 Dose: Not Given Loratadine (Claritin) 10 mg PO DAILY [facility] Last Admin: 09/07/17 09:46 Dose: 10 mg Oxycodone/Acetaminophen (Percocet 5/325 Mg Tab) 1 tab PO BID [facility] PRN Reason: Pain, moderate (4-7) Stop: 09/09/17 10:13 Last Admin: 09/07/17 19:24 Dose: 1 tab Potassium Chloride (K-Dur 20 Meq Er Tab) 20 meq PO DAILY [facility] Last Admin: 09/07/17 09:45 Dose: 20 meq Warfarin Sodium (Coumadin) 2 mg PO 1800 [facility] PRN Reason: Protocol Last Admin: 09/07/17 17:33 Dose: 2 mg - Labs Labs: 09/07/17 13:30 09/07/17 06:45 PT 24.2 SECONDS (9.4-12.5) H 09/08/17 06:05 INR 2.07 (0.93-1.08) H 09/08/17 06:05 - Constitutional Appears: Non-toxic, Chronically Ill - Head Exam Head Exam: NORMAL INSPECTION - ENT Exam ENT Exam: Mucous Membranes Moist - Neck Exam Neck Exam: absent: Meningismus - Respiratory Exam Respiratory Exam: Decreased Breath Sounds. absent: Rales - Cardiovascular Exam Cardiovascular Exam: +S1, +S2 - GI/Abdominal Exam GI & Abdominal Exam: Soft. absent: Tenderness - Extremities Exam Additional comments: right arm port without tenderness, no surrounding erythema, no discharge Assessment and Plan - Assessment and Plan (Free Text) Plan: Assessment Ashley glabrata fungemia, R/O PICC line/port-related, R/O AICD related history of sepsis due to C. parapsilosis and C. glabrata fungemia and Enterococcus bacteremia probably from PICC line, unable to rule out endocarditis history of Sepsis due to right breast cellulitis/mastitis with purulent discharge, growing Serratia history of bilateral breast mastitis growing coagulase negative Staph and Klebsiella pneumoniae history of vaginal candidiasis SLE history of pulmonary emboli CVA asthma S/P ICD placement Plan continue mycamine; for RANJEET today as discussed with Dr. Jones repeat blood cx (09/03) are negative recommend removal of PICC / port since it is the same Ashley glabrata in the blood in 2016 - discussed with Dr. Reynoso Overall prognosis is poor
[2017-09-08] MEDS: Micafungin 100 MG in Sodium Chloride 0.9% 100 ML IV SCH (11:25)
[2017-09-08] MEDS: Fluticasone Nasal 50 mcg/Spray NS SCH (11:26)
[2017-09-08] MEDS ORDERED: Midazolam 2 MG/2 ML VIAL ONE (13:03)
[2017-09-08] MEDS ORDERED: Naloxone 0.4 mg/ml Inj (Adult) ONE (13:04)
[2017-09-08] MEDS ORDERED: Flumazenil 0.1 mg/ml Inj (5ml) IVP ONE (13:04)
[2017-09-08] MEDS ORDERED: Midazolam 2 MG/2 ML VIAL IV ONE ×3 (13:08→13:12)
[2017-09-08] MEDS ORDERED: POLYETHYLENE GLYCOL 3350 17 GM/Dose PACKET PO PRN (13:32)
--- NOTE | 2017-09-08 14:04 | CPOSTOP ---
DATE: 09/08/2017 The patient underwent RANJEET to rule out endocarditis. RANJEET shows severely dilated LV with severely decreased LV function. Ejection fraction 10-15%. Partial flail anterior leaflet with posteriorly directed severe mitral regurgitation. No vegetation noted in AICD valve. No vegetation in [place] valve. RECOMMENDATION: Continue medical treatment. The patient may get benefit from the mitral valve clip in the future. Roberto Jones MD cc: Estelle Tariq MD
[2017-09-08 14:21] VITALS: RESP 20
--- NOTE | 2017-09-08 14:30 | PN ---
DATE: 09/08/2017 PULMONARY PROGRESS NOTE REFERRING PHYSICIAN: Dr. Tariq. SUBJECTIVE: She is ambulating in the room. Night was unremarkable. No cough. No sputum production. No nausea, no vomiting, no diarrhea. No leg pain or leg swelling. OBJECTIVE: GENERAL: In no acute distress. VITAL SIGNS: Temperature is 98, heart rate is 88, respiratory rate is 22, blood pressure 103/69, pulse oximetry 99% on room air. HEENT: Moist mucous membranes. Crowded airway. NECK: Supple. No JVD. LUNGS: Fair airflow with a few rhonchi. HEART: S1 and S2. ABDOMEN: Soft, nontender. No organomegaly. EXTREMITIES: No edema. NEUROLOGIC: Awake and alert. Follows simple commands. MEDICATIONS: She is on Claritin 10 mg daily, also on amiodarone 200 mg daily, Coreg 6.25 mg twice a day, hydrocortisone is back now to 20 mg daily, Coumadin 2 mg daily, Flonase one spray each nostril daily, folic acid 1 mg daily, potassium supplement, Lasix 40 mg twice a day, Lipitor 40 mg daily, micafungin 100 mg daily, Pepcid 20 mg daily, Percocet 5/325 one tablet twice a day p.r.n., IV Primacor, vitamin D 1000 international unit daily, Xanax 0.25 mg daily, Zestril 2.5 mg daily. LABORATORY DATA: Reviewed. INR today 2.07. Microbiology and blood cultures have been negative. IMPRESSION AND PLAN: Recurrent fungemia, has a peripherally inserted central catheter line as well as automatic implantable cardioverter defibrillator, history of cardiac arrhythmia, lupus, adrenal insufficiency, chronic lung disease, may have sleep apnea syndrome. I had a long discussion with Dr. Tariq who spoke to patient and also spoke to Psychiatry. Endocrinology consult noted and also noted that her steroids being increased, will have supervisor dry cleaning handle the steroid portion of the care. Continue antifungal, awaiting for transesophageal echocardiogram. Present PICC line will be discontinued and a new PICC line will be placed in. Then, therapy can be done as an outpatient, if transesophageal echocardiogram is normal. Sleep apnea precaution, bronchodilator. Thank you and we will follow with you. Roberto Mcarthur MD [facility] # [id number]
[2017-09-08] MEDS: Cholecalciferol 1,000 INTLU TAB PO SCH (15:57)
[2017-09-08] MEDS: Potassium Chloride 20 mEq ER Tab PO SCH (16:04)
--- NOTE | 2017-09-08 20:19 | PN ---
DATE: 09/08/2017 REASON FOR CONSULTATION AND FOLLOWUP: Congestive heart failure; cardiomyopathy, nonischemic, on Primacor; cardiac evaluation; blood culture positive for fungemia, negative for bacteremia; rule out endocarditis; for RANJEET. SUBJECTIVE: The patient denies any chest pain, shortness of breath, or any palpitation. PHYSICAL EXAMINATION: GENERAL: Not in any apparent distress. VITAL SIGNS: Temperature afebrile, heart rate 60, blood pressure 118/72. HEENT: PERRLA. Extraocular muscles intact. NECK: Supple. No carotid bruit or thyromegaly. CHEST: Clear to auscultation. HEART: S1 and S2, regular. ABDOMEN: Soft. EXTREMITIES: Clubbing and cyanosis negative. LABORATORY DATA: Blood workup as follows: WBC 5.8, hemoglobin 12.2, hematocrit 39.5, platelet count 223. Chemistry shows sodium 140, potassium 4. , chloride 103, carbon dioxide 33, anion gap of , BUN 18, creatinine 0.9. IMPRESSION AND PLAN: Nonischemic cardiomyopathy, status post automatic implantable cardioverter-defibrillator placed, hyperlipidemia, fungemia in the blood, mitral regurgitation. No obvious vegetation noted. Severely decreased left ventricular function. The patient is scheduled for RANJEET to rule out endocarditis. Further recommendation of the endocarditis suggest strongly to remove the peripherally inserted central catheter line. We will follow with you. Further recommendation after the RANJEET. Roberto Jones MD
--- NOTE | 2017-09-08 20:30 | PN ---
DATE: ENDOCRINOLOGY FOLLOWUP NOTE LOCATION: Room 264. SUBJECTIVE: This is a 52-year-old female presenting here with congestive heart failure and bilateral pedal edema and also marked hypothermia and has since then improved clinically and hemodynamically as noted thereof. She also has underlying dilated cardiomyopathy with an AICD in place. The latest ProBNP level is 1580, which is improved since admission. Her latest chemistry showed a BUN of 18, sodium 142, potassium 4.1, chloride 103, CO2 of 33, glucose 76 and creatinine 0.9. Her latest thyroid study showed a free T4 of 1.47 with a total T4 of 10.4 and a TSH of 1.1 indicative of acute sick euthyroid syndrome that has improved since admission with an initial suppressed TSH of 0.13. Surprisingly, her serum cortisol level is 0.4, which is quite abnormally low in the presence of intercurrent physical stressors as noted. She also has mild hypoalbuminemia, which could explain slightly the low normal serum cortisol levels, but will repeat a fasting serum cortisol level tomorrow morning to verify the exact accuracy of this initial level done today. We will continue the present medical and cardiac management as given and obtain serial chemistries and supplement accordingly as needed. We will follow. Dafne Dutton MD
[2017-09-09] MEDS: Milrinone 20mg/100ml D5W 100 ML IV SCH ×3 (00:20→21:04)
[2017-09-09] MEDS: Oxycodone/Acetaminophen 5/325 mg Tab PO PRN ×2 (00:28→05:44)
[2017-09-09 07:21] LABS: INR 2.13 (0.93-1.08); PROTHROMBIN TIME 24.9 SECONDS (9.4-12.5)
--- NOTE | 2017-09-09 08:00 | CARD ---
APPROVED REPORT EXAM: Transesophageal echocardiogram with color flow Doppler. INDICATION Infection : Rule out subacute bacterial endocarditis Reason For Test : Rule out endocarditis. PROCEDURE After obtaining informed consent, patient underwent transesophageal echo in the Echo Lab. Type of Sedation : Conscious Sedation Sedation was administered by . Sedation was achieved with Versed and , Fentanyl 3 mg and 100 mcg intravenously. Transesophageal probe was inserted and advanced into esophagus without difficulty. Echo enhancement indication: R/O Septal defect. Echo enhancement agent administered: Agitated Saline The RANJEET was performed without complications. Throughout the procedure, the blood pressure, pulse oximetry, cardiac rhythm, and rate were monitored. The patient tolerated the procedure without adverse effects. Recovery from conscious sedation was uneventful and vital signs were stable. LEFT VENTRICLE The Left Ventricle is severely dilated. There is normal left ventricular wall thickness. Left ventricle systolic function is severely impaired.EF-15% There is severe global hypokinesis of the left ventricle. No left ventricle thrombus noted on this study. There is no ventricular septal defect visualized. There is no left ventricular aneurysm. There is no mass noted in the left ventricle. RIGHT VENTRICLE The right ventricle is normal size. There is normal right ventricular wall thickness. The right ventricular systolic function is normal. There is a pacemaker lead in the right ventricle. ATRIA The left atrium is severely dilated. The right atrium is borderline dilated. There is a catheter/pacemaker lead seen in the right atrium. The interatrial septum is intact with no evidence for an atrial septal defect. AORTIC VALVE The aortic valve is normal in structure. No aortic regurgitation is present. There is no aortic valvular stenosis. There is no aortic valvular vegetation. MITRAL VALVE The mitral valve leaflets are thickened. There is partial flail of anterior leaf let. There is no mitral valve stenosis. Mitral regurgitation is severe. The mitral regurgitant jet is eccentrically directed. The mitral regurgitant jet is posteriorly directed, which is consistent with anterior leaflet pathology. TRICUSPID VALVE The tricuspid valve leaflets display thickening. There is mild to moderate tricuspid regurgitation. There is no tricuspid valve prolapse or vegetation. There is no tricuspid valve stenosis. PULMONIC VALVE The pulmonary valve is normal in structure. There is no pulmonic valvular regurgitation. There is no pulmonic valvular stenosis. GREAT VESSELS The aortic root is normal in size. The ascending aorta is normal in size. The pulmonary artery is normal. The IVC was not visualized. PERICARDIAL EFFUSION There is a trace circumferential pericardial effusion. There is no pleural effusion. <Conclusion> The Left Ventricle is severely dilated. There is normal left ventricular wall thickness. Left ventricle systolic function is severely impaired.EF-15% The interatrial septum is intact with no evidence for an atrial septal defect. The right atrium is borderline dilated. There is a catheter/pacemaker lead seen in the right atrium. There is partial flail of anterior leaf let. Mitral regurgitation is severe. The mitral regurgitant jet is eccentrically directed. The mitral regurgitant jet is posteriorly directed, which is consistent with anterior leaflet pathology. There is mild to moderate tricuspid regurgitation. There is a trace circumferential pericardial effusion. There is a pacemaker lead in the right ventricle. There is a catheter/pacemaker lead seen in the right atrium. No Vegetation noted nither on inupiat valve nor on AICD Lead.
[2017-09-09] MEDS: Potassium Chloride 20 mEq ER Tab PO SCH (09:09)
[2017-09-09] MEDS: Fluticasone Nasal 50 mcg/Spray NS SCH (09:09)
[2017-09-09] MEDS: Cholecalciferol 1,000 INTLU TAB PO SCH (09:11)
--- NOTE | 2017-09-09 09:30 | PN ---
DATE: SUBJECTIVE: The patient is seen and examined at the bedside. Looking comfortable, sitting on the chair, was ready to go for removal of the PICC line. No fever. No chills. No shortness of breath. No pain along the right arm port. No diarrhea. Today, the patient is supposed to go for RANJEET. Also discussion done with Dr. Luis Metz and with Dr. Mcarthur. PHYSICAL EXAMINATION: VITAL SIGNS: Temperature of 98.2, pulse 88, respiratory rate 20, blood pressure 103/59, pulse oximetry of 99. HEENT: Head normocephalic, atraumatic. Eyes, PERRLA. Extraocular muscles intact. Conjunctivae clear. Nose patent. Mucous membrane moist. NECK: Supple. No carotid bruit. No JVD or thyromegaly. CHEST: Bilaterally symmetrical. HEART: S1 and S2 positive. LUNGS: Clear to auscultation. ABDOMEN: Soft. Bowel sounds present. No organomegaly. EXTREMITIES: No edema. No cyanosis. NEUROLOGIC: The patient awake and alert. Moving all four extremities. No focal deficit. MEDICATIONS: Amiodarone, atorvastatin, Coreg, vitamin D, Pepcid, Flonase, folic acid, Lasix, Cortef, micafungin, Primacor drip, lisinopril, Claritin, oxycodone, potassium, warfarin. LABORATORY DATA: White blood cell 5.2, hemoglobin 12.5, hematocrit 31.5, platelets 223, sodium 142, potassium 4.1. BUN 18, creatinine 0.9, glucose 76. ASSESSMENT AND PLAN: Ms. Stephanie Siddiqui is a 52-year-old lady with Ashley glabrata fungemia, rule out peripherally inserted central catheter line/port related, rule out automatic implantable cardioverter defibrillator related, history of sepsis due to Ashley parapsilosis and Ashley glabrata fungemia, enterococcus bacteriemia probably from peripherally inserted central catheter line, unable to rule out endocarditis, history of substance abuse, right breast cellulitis, mastitis , history of bilateral breast mastitis growing coagulase negative Staphylococcus, and Klebsiella pneumoniae, history of vaginal candidiasis, systemic lupus erythematosus, history of pulmonary emboli, cerebrovascular accident, asthma, status post automatic implantable cardioverter-defibrillator placement. Continue patient RANJEET today from Dr. Jones, blood cultures negative. Recommend removal of peripherally inserted central catheter line port since it is the same Ashley glabrata in the bladder in 05/2017. Discussion done with Dr. Luis Metz and Dr. Mcarthur. Overall prognosis is not good. Seen by Dr. Jones, platform material handling supervisor. Appreciated Dr. Dafne Dutton's input. She is doing cortisol tomorrow fasting to tissue coordinator the suppression . Gastrointestinal and deep venous thrombosis prophylaxis. Repeat labs. We will follow. Estelle Tariq MD MTDD
--- NOTE | 2017-09-09 11:20 | CP.PCM.PN ---
Subjective - Date & Time of Evaluation Date of Evaluation: 09/09/17 Time of Evaluation: 09:50 - Subjective Subjective: Patient has no fevers, no pain along the right arm port, no nausea or diarrhea, no chest pain, no dyspnea at rest. Objective - Vital Signs/Intake and Output Vital Signs (last 24 hours): Temp Pulse Resp BP Pulse Ox 97.8 F 74 20 111/86 97 09/09/17 06:00 09/09/17 06:00 09/09/17 06:00 09/09/17 06:00 09/09/17 06:00 Intake and Output: 09/09/17 09/09/17 06:59 18:59 Intake Total 1200 Balance 1200 - Medications Medications: Current Medications Alprazolam (Xanax) 0.25 mg PO DAILY COUNT INCLUDES [facility] PRN Reason: Protocol Stop: 09/13/17 10:01 Last Admin: 09/08/17 19:07 Dose: 0.25 mg Amiodarone HCl (Cordarone) 200 mg PO DAILY [facility] Last Admin: 09/08/17 15:58 Dose: 200 mg Atorvastatin Calcium (Lipitor) 40 mg PO DIN COUNT INCLUDES [facility] Last Admin: 09/08/17 17:06 Dose: 40 mg Carvedilol (Coreg) 6.25 mg PO BID COUNT [facility]CLUDES [facility] Last Admin: 09/08/17 17:10 Dose: Not Given Cholecalciferol (Vitamin D) 1,000 intlu PO DAILY [facility]CLUD[facility] Last Admin: 09/08/17 15:57 Dose: 1,000 intlu Famotidine (Pepcid) 20 mg PO DAILY [facility] Last Admin: 09/08/17 16:02 Dose: 20 mg Fluticasone Propionate (Flonase) 1 actuation NS DAILY [facility] Last Admin: 09/08/17 11:26 Dose: 2 spr Folic Acid (Folic Acid) 1 mg PO DAILY [facility] Last Admin: 09/08/17 15:57 Dose: 1 mg Furosemide (Lasix) 40 mg PO 0800,1400 [facility]CLUD[facility] Last Admin: 09/08/17 16:02 Dose: 40 mg Hydrocortisone (Cortef) 20 mg PO DAILY [facility] Last Admin: 09/08/17 11:38 Dose: Not Given Hydrocortisone (Cortef) 20 mg PO QPM [facility]CLUD[facility] Last Admin: 09/08/17 17:07 Dose: 20 mg Milrinone Lactate/Dextrose (Primacor 20mg/100ml D5w) 100 mls @ 12.791 mls/hr IV .Q7H50M ANA LILIA; 0.5 MCG/KG/MIN PRN Reason: Protocol Last Admin: 09/09/17 00:20 Dose: 12.791 mls/hr Lisinopril (Zestril) 2.5 mg PO DAILY [facility]CLUD[facility] Last Admin: 09/08/17 16:03 Dose: 2.5 mg Loratadine (Claritin) 10 mg PO DAILY [facility]CLUD[facility] Last Admin: 09/08/17 15:57 Dose: 10 mg Oxycodone/Acetaminophen (Percocet 5/325 Mg Tab) 1 tab PO BID PRN PRN Reason: Pain, moderate (4-7) Stop: 09/09/17 10:13 Last Admin: 09/09/17 05:44 Dose: 1 tab Polyethylene Glycol (Miralax) 17 gm PO DAILY PRN PRN Reason: Abd pain Potassium Chloride (K-Dur 20 Meq Er Tab) 20 meq PO DAILY [facility]CLUDES [facility] Last Admin: 09/08/17 16:04 Dose: 20 meq Warfarin Sodium (Coumadin) 2 mg PO 1800 ANA LILIA PRN Reason: Protocol Last Admin: 09/08/17 17:07 Dose: 2 mg - Labs Labs: 09/07/17 13:30 09/07/17 06:45 PT 24.9 SECONDS (9.4-12.5) H 09/09/17 06:50 INR 2.13 (0.93-1.08) H 09/09/17 06:50 - Constitutional Appears: Non-toxic, Chronically Ill - Head Exam Head Exam: NORMAL INSPECTION - ENT Exam ENT Exam: Mucous Membranes Moist - Neck Exam Neck Exam: absent: Meningismus - Respiratory Exam Respiratory Exam: Decreased Breath Sounds. absent: Rales - Cardiovascular Exam Cardiovascular Exam: +S1, +S2 - GI/Abdominal Exam GI & Abdominal Exam: Soft. absent: Tenderness - Extremities Exam Additional comments: right arm port intact, site clean, non-tender Assessment and Plan - Assessment and Plan (Free Text) Plan: Assessment Ashley glabrata fungemia, suspicious to be PICC line/port-related; RANJEET done and did not show valve vegetations or vegetations on the AICD history of sepsis due to C. parapsilosis and C. glabrata fungemia and Enterococcus bacteremia probably from PICC line, unable to rule out endocarditis history of Sepsis due to right breast cellulitis/mastitis with purulent discharge, growing Serratia history of bilateral breast mastitis growing coagulase negative Staph and Klebsiella pneumoniae history of vaginal candidiasis SLE history of pulmonary emboli CVA asthma S/P ICD placement Plan continue mycamine; discussed with Dr. Jones regarding RANJEET results repeat blood cx (09/03) are negative recommend removal of PICC / port since it is the same Ashley glabrata in the blood in 2016 - discussed with Dr. Reynoso and Dr. Jones - will need 4-6 weeks of Mycamine after the port is removed Overall prognosis is poor
--- NOTE | 2017-09-09 12:49 | PN ---
DATE: 09/09/2017 REASON FOR CONSULTATION: Follow up congestive heart failure. Cardiomyopathy, nonischemic, on Primacor. Cardiac evaluation. Blood culture positive. Status post RANJEET. Negative for endocarditis. SUBJECTIVE: The patient denies any chest pain, shortness of breath, any palpitation. OBJECTIVE: GENERAL: Not in any apparent distress. VITAL SIGNS: Temperature afebrile, heart rate 72, blood pressure 101/86. HEENT: PERRLA. Extraocular muscles intact. NECK: Supple. No carotid bruit. No thyromegaly. CHEST: Clear to auscultation. HEART: S1 and S2 regular. ABDOMEN: Soft. EXTREMITIES: Clubbing and cyanosis negative. LABORATORY DATA: Blood workup as follows; WBC 5.8, hemoglobin 12.8, hematocrit 39.5, platelet count 223. Chemistry shows sodium 142, potassium , chloride 103, carbon dioxide 33, anion gap of 10, BUN 18, creatinine 0.9. Coagulation profile: INR of 2.13. IMPRESSION: Fungemia in the blood, status post transesophageal echocardiography. Negative for endocarditis on eagle valve or defibrillator wire or lead. Echocardiogram shows severely decreased left ventricular function. Velocity in the left atrial appendage is more than 1 m/sec2. No significant plaque noted in aorta. Ejection fraction 15%. Severely dilated left ventricle. Right atrium is borderline. Pacemaker lead in right atrium and right ventricle, but no vegetation noted. Trace pericardial effusion. History of systemic lupus erythematosus, on maintenance with the steroid now; nonischemic cardiomyopathy. RECOMMENDATION: Strongly consider discontinue PICC line and place a new line. Discussed with Dr. Isaías Smith, Infectious Disease doctor. We will follow with you. No further cardiac workup is planned upon discharge. The patient will be followed with Dr. Rubalcava. We will contact Dr. Rubalcava to update the patient's condition. The patient is okay to be discharge, but before discharge, suggest to change the PICC line. Roberto Jones MD
--- NOTE | 2017-09-09 16:15 | CP.PCM.PN ---
<Sandee Caceres - Last Filed: 09/09/17 16:12> Subjective - Date & Time of Evaluation Date of Evaluation: 09/09/17 Time of Evaluation: 09:45 - Subjective Subjective: Chief Complaint: Fatigue, PICC line 52yr female w/ history of non-ischemic cardiomyopathy s/p AICD , [place] [address] Kahn, s/p endocarditis, on heart transplant list [facility]W[place], patent foramen ovale, ASD, on LifeVest milirone drip @ home & coumadin , SLE, stroke, R sided weakness, Pulmonary embolism, Anxiety, depression, h/o vaginal candiasis, & R breast cellulitis/mastitis. On 06/08/17 PICC inserted for treatment w/ IV anti-fungals (Blood culture = (+) Ashley parapsilosis) and primacor drip (LVEF 12.4%, systolic function EF 15-20%, AICD/PPM in RA/RV). 2017 patient was treated at home with IV infusion nurse services. ID believed that Two pacemakers (Chest wall) & (L flank), may be source of yeast infection. Pt is a High risk for removal of both pacemakers, real EF 10% or less so she was treated medically x 4 weeks w. antifungals. On 09/01/17, repeat cultures were done in Emergency Dept of [facility] [place] and they resulted with S. aureas & coag-neg staph PNA FISH. Pt has R arm PICC line from admission still in place. Today, pt seen at bedside continuing to voice concerns about the reduction of her oral steroids. Pt appears better understand her current prognosis and plan of care. Denies fever, chills, headache, nausea, vomiting, diarrhea, constipation or urinary changes. Objective - Vital Signs/Intake and Output Vital Signs (last 24 hours): Temp Pulse Resp BP Pulse Ox 97.6 F 76 20 115/85 98 09/09/17 14:00 09/09/17 14:00 09/09/17 14:00 09/09/17 14:00 09/09/17 14:00 Intake and Output: 09/09/17 09/09/17 06:59 18:59 Intake Total 1200 Balance 1200 - Medications Medications: Current Medications Alprazolam (Xanax) 0.25 mg PO DAILY [facility] PRN Reason: Protocol Stop: 09/13/17 10:01 Last Admin: 09/09/17 09:20 Dose: Not Given Amiodarone HCl (Cordarone) 200 mg PO DAILY [facility] Last Admin: 09/09/17 09:10 Dose: 200 mg Atorvastatin Calcium (Lipitor) 40 mg PO DIN [facility] Last Admin: 09/08/17 17:06 Dose: 40 mg Carvedilol (Coreg) 6.25 mg PO BID [facility] Last Admin: 09/09/17 09:12 Dose: Not Given Cholecalciferol (Vitamin D) 1,000 intlu PO DAILY [facility] Last Admin: 09/09/17 09:11 Dose: 1,000 intlu Famotidine (Pepcid) 20 mg PO DAILY [facility] Last Admin: 09/09/17 09:11 Dose: 20 mg Fluticasone Propionate (Flonase) 1 actuation NS DAILY [facility] Last Admin: 09/09/17 09:09 Dose: 1 spr Folic Acid (Folic Acid) 1 mg PO DAILY [facility] Last Admin: 09/09/17 09:10 Dose: 1 mg Furosemide (Lasix) 40 mg PO 0800,1400 [facility] Last Admin: 09/09/17 09:10 Dose: 40 mg Hydrocortisone (Cortef) 20 mg PO DAILY [facility] Last Admin: 09/09/17 10:40 Dose: 20 mg Hydrocortisone (Cortef) 20 mg PO QPM [facility] Last Admin: 09/08/17 17:07 Dose: 20 mg Milrinone Lactate/Dextrose (Primacor 20mg/100ml D5w) 100 mls @ 12.791 mls/hr IV .Q7H50M ANA LILIA; 0.5 MCG/KG/MIN PRN Reason: Protocol Last Admin: 09/09/17 09:12 Dose: 12.791 mls/hr Lisinopril (Zestril) 2.5 mg PO DAILY [facility] Last Admin: 09/09/17 09:12 Dose: 2.5 mg Loratadine (Claritin) 10 mg PO DAILY [facility] Last Admin: 09/09/17 09:12 Dose: 10 mg Polyethylene Glycol (Miralax) 17 gm PO DAILY PRN PRN Reason: Abd pain Potassium Chloride (K-Dur 20 Meq Er Tab) 20 meq PO DAILY [facility] Last Admin: 09/09/17 09:09 Dose: 20 meq Warfarin Sodium (Coumadin) 2 mg PO 1800 ANA LILIA PRN Reason: Protocol Last Admin: 09/08/17 17:07 Dose: 2 mg - Labs Labs: 09/07/17 13:30 09/07/17 06:45 PT 24.9 SECONDS (9.4-12.5) H 09/09/17 06:50 INR 2.13 (0.93-1.08) H 09/09/17 06:50 - Constitutional Appears: Well - Head Exam Head Exam: ATRAUMATIC, NORMAL INSPECTION, NORMOCEPHALIC - Eye Exam Eye Exam: EOMI, Normal appearance, PERRL Pupil Exam: NORMAL ACCOMODATION, PERRL Additional comments: corrective glasses in place. - ENT Exam ENT Exam: Mucous Membranes Moist, Normal Exam - Neck Exam Neck Exam: Full ROM, Normal Inspection. absent: Lymphadenopathy - Respiratory Exam Respiratory Exam: Clear to Ausculation Bilateral, NORMAL BREATHING PATTERN - Cardiovascular Exam Cardiovascular Exam: REGULAR RHYTHM, +S1, +S2. absent: Murmur - GI/Abdominal Exam GI & Abdominal Exam: Soft, Normal Bowel Sounds. absent: Tenderness - Extremities Exam Extremities Exam: Full ROM, Normal Capillary Refill, Normal Inspection. absent : Joint Swelling, Pedal Edema Additional comments: R arm PICC - Neurological Exam Neurological Exam: Alert, Awake, CN II-XII Intact, Normal Gait, Oriented x3 - Psychiatric Exam Psychiatric exam: Anxious, Depressed - Skin Skin Exam: Dry, Intact, Normal Color, Warm Assessment and Plan (1) Sick-euthyroid syndrome Status: Acute (2) Elevated erythrocyte sedimentation rate Status: Acute (3) Anemia, iron deficiency Status: Acute (4) Positive blood culture Status: Acute (5) Lupus Status: Chronic (6) Abdominal pain Status: Acute (7) CHF (congestive heart failure) Status: Acute (8) Dehydration Status: Acute (9) Fungemia Status: Acute (10) Intractable pain Status: Acute (11) Whole body pain Status: Acute (12) H/O cellulitis of skin with lymphangitis Status: Resolved (13) Mastitis in female Status: Resolved (14) Vaginal candidiasis Status: Resolved (15) Pulmonary embolism Status: Chronic - Assessment and Plan (Free Text) Plan: RANJEET done. Cardio cleared her. Daily Coumadin. Labs ordered. Psych & Pastoral care onboard. Endocrine workup for renal insufficiency, shows low cortisol levels, trending for now. No rheumatic evaluation for Lupus NOT available at this time. PO steroids reduction to reduce further immunosupression & fungal growth. IV micafungin for POSITIVE blood culture on 09/01 = S. aureas & coag-neg staph PNA FISH. Pt is awaiting removal of PICC line and will need a new PICC line inserted. Pt. will also need 4-6 weeks of Mycamine 100mg IV Daily, will resume once a new PICC access is inserted.VTE/GI prophlyaxis. Refused Cpap. pain management: percocet 1 tab q8hr Consults: Endo - Cam Psych - Dr. Ketty Frederick Pain Mnmnt - Dr. David Gooden - Dr. Metz / Dr. Snowden Cardio - Dr. Jones Pulmonary - Reviewed: ECHO = LVEF 11.7%, L ventricle severe dilation, systolic function severely impaired, global hypokinesis of L ventricle. ECG = ABNORMAL, SR w. 1AVB w. PVC, possible L atrial enlargement, L anterior fasicular block, T wave abn, consider lateral ischemia, prolonged QT 06/10/2017 Blood culture = (+) Ashley parapsilosis 06/2017 ECHO = LVEF 12.4%, systolic function EF 15-20%, AICD/PPM in RA/RV <Estelle Tariq - Last Filed: 09/09/17 21:09> Objective - Vital Signs/Intake and Output Vital Signs (last 24 hours): Temp Pulse Resp BP Pulse Ox 97.6 F 76 20 115/85 98 09/09/17 14:00 09/09/17 14:00 09/09/17 14:00 09/09/17 14:00 09/09/17 14:00 - Medications Medications: Current Medications Alprazolam (Xanax) 0.25 mg PO DAILY [facility] PRN Reason: Protocol Stop: 09/13/17 10:01 Last Admin: 09/09/17 16:24 Dose: 0.25 mg Amiodarone HCl (Cordarone) 200 mg PO DAILY [facility] Last Admin: 09/09/17 09:10 Dose: 200 mg Atorvastatin Calcium (Lipitor) 40 mg PO DIN [facility] Last Admin: 09/09/17 18:09 Dose: 40 mg Carvedilol (Coreg) 6.25 mg PO BID [facility] Last Admin: 09/09/17 18:08 Dose: 6.25 mg Cholecalciferol (Vitamin D) 1,000 intlu PO DAILY [facility] Last Admin: 09/09/17 09:11 Dose: 1,000 intlu Famotidine (Pepcid) 20 mg PO DAILY [facility] Last Admin: 09/09/17 09:11 Dose: 20 mg Fluticasone Propionate (Flonase) 1 actuation NS DAILY [facility] Last Admin: 09/09/17 09:09 Dose: 1 spr Folic Acid (Folic Acid) 1 mg PO DAILY [facility] Last Admin: 09/09/17 09:10 Dose: 1 mg Furosemide (Lasix) 40 mg PO 0800,1400 [facility] Last Admin: 09/09/17 09:10 Dose: 40 mg Hydrocortisone (Cortef) 20 mg PO DAILY [facility] Last Admin: 09/09/17 10:40 Dose: 20 mg Hydrocortisone (Cortef) 20 mg PO QPM [facility] Last Admin: 09/09/17 18:08 Dose: 20 mg Milrinone Lactate/Dextrose (Primacor 20mg/100ml D5w) 100 mls @ 12.791 mls/hr IV .Q7H50M ANA LILIA; 0.5 MCG/KG/MIN PRN Reason: Protocol Last Admin: 09/09/17 09:12 Dose: 12.791 mls/hr Micafungin Sodium 100 mg/ (Sodium Chloride) 100 mls @ 100 mls/hr IV DAILY [facility] PRN Reason: Protocol Stop: 09/16/17 19:17 Lisinopril (Zestril) 2.5 mg PO DAILY [facility] Last Admin: 09/09/17 09:12 Dose: 2.5 mg Loratadine (Claritin) 10 mg PO DAILY [facility] Last Admin: 09/09/17 09:12 Dose: 10 mg Polyethylene Glycol (Miralax) 17 gm PO DAILY PRN PRN Reason: Abd pain Potassium Chloride (K-Dur 20 Meq Er Tab) 20 meq PO DAILY [facility] Last Admin: 09/09/17 09:09 Dose: 20 meq Warfarin Sodium (Coumadin) 2 mg PO 1800 [facility] PRN Reason: Protocol Last Admin: 09/09/17 18:08 Dose: 2 mg - Labs Labs: 09/07/17 13:30 09/07/17 06:45 PT 24.9 SECONDS (9.4-12.5) H 04/06/18 06:50 INR 2.13 (0.93-1.08) H 09/09/17 06:50 Assessment and Plan - Assessment and Plan (Free Text) Plan: 52yr female w/ history of non-ischemic cardiomyopathy s/p AICD , [place] [address] Kahn, s/p endocarditis, on heart transplant list RW, patent foramen ovale, ASD, on LifeVest milirone drip @ home & coumadin , SLE, stroke, R sided weakness, Pulmonary embolism, Anxiety, depression, h/o vaginal candiasis, & R breast cellulitis/mastitis. On 06/08/17 PICC inserted for treatment w/ IV anti-fungals (Blood culture = (+) Ashley parapsilosis) and primacor drip (LVEF 12.4%, systolic function EF 15-20%, AICD/PPM in RA/RV). 2017 patient was treated at home with IV infusion nurse services. ID believed that Two pacemakers (Chest wall) & (L flank), may be source of yeast infection. Pt is a High risk for removal of both pacemakers, real EF 10% or less so she was treated medically x 4 weeks w. antifungals. On 09/01/17, repeat cultures were done in Emergency Dept of [facility] [place] and they resulted with S. aureas & coag-neg staph PNA FISH. Pt has R arm PICC line from admission still in place. Today, pt seen at bedside continuing to voice concerns about the reduction of her oral steroids. Pt appears better understand her current prognosis and plan of care. Denies fever, chills, headache, nausea, vomiting, diarrhea, constipation or urinary changes. pt is seen and bed side ,looking comfortable , agreed all above , chart , labs and meds noted , will f/u
--- NOTE | 2017-09-09 18:07 | RAD ---
HISTORY: PICC PLACEMENT COMPARISON: 09/01/2017 FINDINGS: LUNGS: No active pulmonary disease. PLEURA: No significant pleural effusion identified, no pneumothorax apparent. CARDIOVASCULAR: No radiographic findings to suggest acute or significant cardiovascular disease. Position/ configuration of pacemaker device: Satisfactory. PICC line in satisfactory position inserted via right-sided approach. The tip is in the SVC within 3 cm of the cavoatrial junction. OSSEOUS STRUCTURES: No significant abnormalities. VISUALIZED UPPER ABDOMEN: Normal. OTHER FINDINGS: None. IMPRESSION: Status post, by history, recent PICC line placement. The PICC line is in satisfactory position. No pneumothorax identified. Please note there was a PICC line apparent on the prior study 09/01/2017 in approximately stable position.
[2017-09-09 18:55] LABS: TSI <89 % baseline (<140)
--- NOTE | 2017-09-09 19:30 | PN ---
DATE: 09/09/2017 PULMONARY PROGRESS NOTE REFERRING PHYSICIAN: Dr. Tariq. SUBJECTIVE: She is out of bed to chair, status post transesophageal echo. So, far unofficially seems like no vegetation reported. Has no cough. No sputum production. No nausea, no vomiting, no diarrhea. No leg pain or leg swelling. OBJECTIVE: GENERAL: In no acute distress. VITAL SIGNS: Temperature is 98, heart rate is 76, respiratory rate is 20, blood pressure 115/85, pulse oximetry 78% on room air. HEENT: Moist mucous membranes. Crowded airway. NECK: Supple. No JVD. LUNGS: Fair airflow with rhonchi. HEART: S1 and S2. ABDOMEN: Soft, nontender. No organomegaly. EXTREMITIES: There is no edema. NEUROLOGIC: Awake and alert. Follows simple commands. MEDICATIONS: She is on Claritin 10 mg daily, amiodarone 200 mg daily, Coreg 6.25 mg twice a day, hydrocortisone 20 mg daily, also have a hydrocortisone 20 mg daily in the morning, Coumadin 2 mg daily, Flonase one spray each nostril daily, folic acid 1 mg daily, potassium 20 mEq daily, Lasix 40 mg twice a day, Lipitor 40 mg daily, MiraLax 17 g daily p.r.n., Pepcid 20 mg daily, Primacor IV, vitamin D 1000 international unit daily, Xanax 0.25 mg daily, Zestril 2.5 mg daily. LABORATORY DATA: INR today 2.13. Microbiology and blood cultures have been negative. Has a transesophageal echo done, which was reported as left ventricle severely dilated, left ventricular ejection fraction is about 15%. Mitral regurgitation is severe. Mitral regurgitation jet is posteriorly directed, which is consistent with anterior leaflet pathology. There is no vegetation reported. IMPRESSION AND PLAN: Recurrent fungemia, has a peripherally inserted central catheter line, has a automatic implantable cardioverter defibrillator, history of lupus, steroid dependent, adrenal insufficiency, may have sleep apnea syndrome, also has a history of vancomycin-resistant enterococci. Case discussed with the nursing staff, also spoke to social work instructor, spoke to PICC line team. The patient's old PICC line need to come out and new PICC line need to be inserted. After that, arrangement for going home noted to be made. The patient wants to go home; otherwise, sign against medical advice. So, arrangement of home antibiotics being given, requested nursing staff to speak to Infectious Diseases. I will concern about her steroids where she has adrenal insufficiency and steroid dependence because of her systemic lupus erythematosus. We will follow outpatient with her Endocrinology. Thank you and we will follow with you. Roberto Mcarthur MD
[2017-09-09] MEDS ORDERED: Oxycodone/Acetaminophen 5/325 mg Tab PO STA (20:40)
[2017-09-09] MEDS: Micafungin 100 MG in Sodium Chloride 0.9% 100 ML IV SCH (21:15)
--- NOTE | 2017-09-09 22:41 | PN ---
DATE: ENDOCRINOLOGY FOLLOWUP NOTE LOCATION: Room 570 SUBJECTIVE: This is a 52-year-old female admitted with generalized body weakness and bacteremia and concomitant history of adrenal insufficiency, now being followed closely for metabolic management. Her latest chemistry showed a BUN of 18, sodium 142, potassium 4.1, chloride 103, CO2 33, glucose 76 and creatinine 0.9. So at this time, we will continue the same modified dosing of her hydrocortisone given as 20 mg b.i.d. at 09:00 a.m. and 09:00 p.m. daily as given. We will titrate incrementally as indicated to optimize metabolic control. We will repeat the serum cortisol level tomorrow and adjust her dose regimen accordingly. We will follow. Dafne Dutton MD
[2017-09-10] MEDS ORDERED: Oxycodone/Acetaminophen 5/325 mg Tab PO STA ×2 (01:03→10:08)
[2017-09-10] MEDS: Milrinone 20mg/100ml D5W 100 ML IV SCH (05:41)
[2017-09-10 05:55] VITALS: BP 100/68; PULSE 71
[2017-09-10 07:51] VITALS: TEMP 97.8; O2SAT 95
[2017-09-10 08:15] LABS: ALB/GLOB RATIO 0.9 (1.1-1.8); ALBUMIN 3.5 g/dL (3.0-4.8); ALT/SGPT 23 U/L (7-56); AST/SGOT 22 U/L (14-36); BLOOD UREA NITROGEN 18 mg/dL (7-21); GFR AFRICAN-AMERICAN > 60; GFR NON-AFRICAN AMERICAN > 60
[2017-09-10] MEDS: Potassium Chloride 20 mEq ER Tab PO SCH (10:22)
[2017-09-10] MEDS: Cholecalciferol 1,000 INTLU TAB PO SCH (10:23)
[2017-09-10] MEDS: Fluticasone Nasal 50 mcg/Spray NS SCH (10:24)
[2017-09-10] MEDS: Micafungin 100 MG in Sodium Chloride 0.9% 100 ML IV SCH (10:25)
--- NOTE | 2017-09-10 12:42 | CP.PCM.PN ---
Subjective - Date & Time of Evaluation Date of Evaluation: 09/10/17 Time of Evaluation: 11:50 - Subjective Subjective: Comfortable in bed, no fevers. Objective - Vital Signs/Intake and Output Vital Signs (last 24 hours): Temp Pulse Resp BP Pulse Ox 97.8 F 71 20 100/68 95 09/10/17 07:50 09/10/17 10:06 09/10/17 07:50 09/10/17 10:06 09/10/17 07:50 Intake and Output: 09/10/17 09/10/17 06:59 18:59 Intake Total 660 Balance 660 - Medications Medications: Current Medications Alprazolam (Xanax) 0.25 mg PO DAILY COUNTS INCLUDE 234 BEDS AT THE [facility] PRN Reason: Protocol Stop: 09/13/17 10:01 Last Admin: 09/10/17 10:05 Dose: Not Given Amiodarone HCl (Cordarone) 200 mg PO DAILY COUNTS INCLUDE 234 BEDS AT THE [facility] Last Admin: 09/09/17 09:10 Dose: 200 mg Atorvastatin Calcium (Lipitor) 40 mg PO DIN COUNTS INCLUDE 234 BEDS AT THE [facility] Last Admin: 09/09/17 18:09 Dose: 40 mg Carvedilol (Coreg) 6.25 mg PO BID COUNTS INCLUDE 234 BEDS AT THE [facility] Last Admin: 09/09/17 18:08 Dose: 6.25 mg Cholecalciferol (Vitamin D) 1,000 intlu PO DAILY COUNTS INCLUDE 234 BEDS AT THE [facility] Last Admin: 09/09/17 09:11 Dose: 1,000 intlu Famotidine (Pepcid) 20 mg PO DAILY COUNTS INCLUDE 234 BEDS AT THE [facility] Last Admin: 09/09/17 09:11 Dose: 20 mg Fluticasone Propionate (Flonase) 1 actuation NS DAILY COUNTS INCLUDE 234 BEDS AT THE [facility] Last Admin: 09/09/17 09:09 Dose: 1 spr Folic Acid (Folic Acid) 1 mg PO DAILY COUNTS INCLUDE 234 BEDS AT THE [facility] Last Admin: 09/09/17 09:10 Dose: 1 mg Furosemide (Lasix) 40 mg PO 0800,1400 COUNTS INCLUDE 234 BEDS AT THE [facility] Last Admin: 09/10/17 10:03 Dose: Not Given Hydrocortisone (Cortef) 40 mg PO DAILY COUNTS INCLUDE 234 BEDS AT THE [facility] Hydrocortisone (Cortef) 30 mg PO 2100 COUNTS INCLUDE 234 BEDS AT THE [facility] Milrinone Lactate/Dextrose (Primacor 20mg/100ml D5w) 100 mls @ 12.791 mls/hr IV .Q7H50M ANA LILIA; 0.5 MCG/KG/MIN PRN Reason: Protocol Last Admin: 09/10/17 05:41 Dose: 12.791 mls/hr Micafungin Sodium 100 mg/ (Sodium Chloride) 100 mls @ 100 mls/hr IV DAILY ANA LILIA PRN Reason: Protocol Stop: 09/16/17 19:17 Last Admin: 09/09/17 21:15 Dose: 100 mls/hr Lisinopril (Zestril) 2.5 mg PO DAILY ANA LILIA Last Admin: 09/10/17 10:06 Dose: Not Given Polyethylene Glycol (Miralax) 17 gm PO DAILY PRN PRN Reason: Abd pain Potassium Chloride (K-Dur 20 Meq Er Tab) 20 meq PO DAILY ANA LILIA Last Admin: 09/09/17 09:09 Dose: 20 meq Warfarin Sodium (Coumadin) 2 mg PO 1800 ANA LILIA PRN Reason: Protocol Last Admin: 09/09/17 18:08 Dose: 2 mg - Labs Labs: 09/07/17 13:30 09/10/17 06:40 PT 24.9 SECONDS (9.4-12.5) H 09/09/17 06:50 INR 2.13 (0.93-1.08) H 09/09/17 06:50 - Constitutional Appears: Chronically Ill - Head Exam Head Exam: NORMAL INSPECTION - Respiratory Exam Respiratory Exam: Decreased Breath Sounds - Cardiovascular Exam Cardiovascular Exam: +S1, +S2 - GI/Abdominal Exam GI & Abdominal Exam: Soft. absent: Tenderness Assessment and Plan - Assessment and Plan (Free Text) Plan: Assessment Ashley glabrata fungemia, suspicious to be PICC line/port-related S/P port removal; RANJEET done and did not show valve vegetations or vegetations on the AICD history of sepsis due to C. parapsilosis and C. glabrata fungemia and Enterococcus bacteremia probably from PICC line, unable to rule out endocarditis history of Sepsis due to right breast cellulitis/mastitis with purulent discharge, growing Serratia history of bilateral breast mastitis growing coagulase negative Staph and Klebsiella pneumoniae history of vaginal candidiasis SLE history of pulmonary emboli CVA asthma S/P ICD placement Plan continue mycamine; discussed with Dr. Jones regarding RANJEET results repeat blood cx (09/03) are negative will need 4-6 weeks of Mycamine after the port is removed Overall prognosis is poor
--- NOTE | 2017-09-10 13:17 | PN ---
DATE: REASON FOR CONSULTATION AND FOLLOWUP: Congestive heart failure; cardiomyopathy, nonischemic, on Primacor; status post AICD; status post RANJEET and negative for endocarditis. SUBJECTIVE: The patient denies any chest pain, shortness of breath, or any palpitation. OBJECTIVE GENERAL: Not in apparent distress. VITAL SIGNS: As follows, temperature afebrile, heart rate 71, blood pressure 100/60. HEENT: PERRLA. Extraocular muscles intact. NECK: Supple. No carotid bruit or thyromegaly. CHEST: Clear to auscultation. HEART: S1 and S2 regular. ABDOMEN: Soft. EXTREMITIES: Clubbing and cyanosis, negative. LABORATORY DATA: Blood workup as follows: WBC 5.8, hemoglobin 12.8, hematocrit 39.5, platelet count 223. Chemistry shows sodium 140, potassium 4.2, chloride 98, carbon dioxide 31, anion gap of 14. BUN 18, creatinine is 0.8. IMPRESSION: Blood culture is positive for fungus, rule out endocarditis; status post transesophageal echocardiography, no evidence of endocarditis, on Primacor; cardiomyopathy, nonischemic; severely dilated ventricle, severely decreased left ventricular ejection fraction of 15%. RECOMMENDATIONS: Continue amiodarone, Coreg, warfarin, folic acid, atorvastatin and lisinopril, follow up. The patient will be able to be discharged. The patient will be followed up with Dr. Kahn. INR yesterday was 2.13. Continue anticoagulation. Roberto Jones MD
--- NOTE | 2017-09-12 08:38 | PN ---
DATE: 09/10/2017 ENDOCRINOLOGY FOLLOWUP NOTE LOCATION: In room 570. SUBJECTIVE: This is a 52-year-old female with recent bacteremia and also being followed closely for metabolic management of known history of hypoadrenalism with associated constitutional symptoms of generalized body weakness and episodic dizziness and lightheadedness as noted thereof. Her repeat chemistries today showed a BUN of 18, sodium 140, potassium 4.0, chloride 98, CO2 of 31, glucose 92 and creatinine 0.9. The repeat serum cortisol level is 1.0 with an ACTH of less than 5. This really is indicative more of secondary hypoadrenalism or adrenal insufficiency at this time. She also has underlying hypoalbuminemia, which will contribute to the very low cortisol binding globulin and also subsequent low normal cortisol levels there too. So at this time, we will modify once again her oral steroid replacement therapy and increase the hydrocortisone to 40 mg to start this morning. We will also increase the hydrocortisone to 30 mg at bedtime daily to start tonight. We will obtain serial chemistries and supplement accordingly as needed and also obtain serial serum cortisol levels and adjust her dose regimen accordingly. We will follow. Dafne Dutton MD
== END 2017-09-10 15:28 | disposition home or self-care (01) | DRG 872 ==
LOC: ED 20:23 → INTOOBSV 22:29 → OBSVTOIN 22:29 → ERH 22:29 → 2RNO 09-04 03:18 → 5RSO 09-08 15:37
PROVIDERS: ADMIT Internal Medicine; ATTEND Internal Medicine
PROC: B246ZZ4 Ultrasonography of Right and Left Heart, Transesophageal (ICD-10-PCS; principal; 2017-09-08 12:00)
PROC: 02HV33Z Insertion of Infusion Device into Superior Vena Cava, Percutaneous Approach (ICD-10-PCS; 2017-09-09)
PROC: B548ZZA Ultrasonography of Superior Vena Cava, Guidance (ICD-10-PCS; 2017-09-09)
DX: R78.81 Bacteremia (principal); E27.40 Unspecified adrenocortical insufficiency; I42.0 Dilated cardiomyopathy; Q21.1 Atrial septal defect; I69.351 Hemiplegia and hemiparesis following cerebral infarction affecting right dominant side; B49 Unspecified mycosis; D50.9 Iron deficiency anemia, unspecified; E07.81 Sick-euthyroid syndrome; E78.5 Hyperlipidemia, unspecified; E86.0 Dehydration; E88.09 Other disorders of plasma-protein metabolism, not elsewhere classified; F32.89 Other specified depressive episodes; F41.0 Panic disorder [episodic paroxysmal anxiety]; F41.1 Generalized anxiety disorder; G47.30 Sleep apnea, unspecified; G89.4 Chronic pain syndrome; I08.1 Rheumatic disorders of both mitral and tricuspid valves; I11.0 Hypertensive heart disease with heart failure; I25.5 Ischemic cardiomyopathy; I50.9 Heart failure, unspecified; J44.9 Chronic obstructive pulmonary disease, unspecified; K21.9 Gastro-esophageal reflux disease without esophagitis; K59.00 Constipation, unspecified; M32.9 Systemic lupus erythematosus, unspecified; N28.9 Disorder of kidney and ureter, unspecified; N61.0 Mastitis without abscess; Z79.01 Long term (current) use of anticoagulants; Z79.52 Long term (current) use of systemic steroids; Z79.899 Other long term (current) drug therapy; Z85.3 Personal history of malignant neoplasm of breast; Z86.711 Personal history of pulmonary embolism; Z87.01 Personal history of pneumonia (recurrent); Z87.891 Personal history of nicotine dependence; Z91.19 Patient's noncompliance with other medical treatment and regimen; Z95.0 Presence of cardiac pacemaker; Z95.810 Presence of automatic (implantable) cardiac defibrillator; Z76.82 Awaiting organ transplant status; B37.9 Candidiasis, unspecified

== ENCOUNTER 2018-02-27 11:49 | Inpatient (IN) | payer MEDICAID, MEDICARE ==
[2018-02-27 11:49] VITALS: PULSE 98; BMI 34.4
[2018-02-27] MEDS ORDERED: Oxycodone/Acetaminophen 5/325 mg Tab PO STA (12:25)
[2018-02-27 14:15] LABS: BASO # 0.01 K/mm3 (0.0-2.0); BASO % 0.1 % (0.0-3.0); EOS % 0.1 % (1.5-5.0); GRAN # 6.31 (1.4-6.5); GRAN % 84.2 % (50.0-68.0); HEMOGLOBIN 10.7 g/dL (12.0-16.0); LYMPH # 0.9 (1.2-3.4); LYMPH % 11.6 % (22.0-35.0); MEAN CELL VOLUME 84.4 fl (80.0-105.0); MEAN CORPUSCULAR HEMOGLOBIN 25.2 pg (25.0-35.0); MEAN CORPUSCULAR HGB CONC 29.9 g/dl (31.0-37.0); MEAN PLATELET VOLUME 10.7 fl (7.0-11.0); MONO # 0.3 (0.1-0.6); RBC 4.24 10^6/uL (3.5-6.1); RED CELL DISTRIBUTION WIDTH 16.2 % (11.5-14.5); WHITE BLOOD COUNT 7.5 10^3/ul (4.5-11.0)
[2018-02-27 14:23] LABS: ALB/GLOB RATIO 0.9 (1.1-1.8); ALBUMIN 3.6 g/dL (3.0-4.8); ALT/SGPT 16 U/L (7-56); AST/SGOT 20 U/L (14-36); BLOOD UREA NITROGEN 18 mg/dL (7-21); CALCIUM 8.4 mg/dL (8.4-10.5); GFR NON-AFRICAN AMERICAN > 60
[2018-02-27] MEDS ORDERED: Potassium Chloride 20 mEq ER Tab PO STA (14:31)
[2018-02-27] MEDS ORDERED: Sodium Chloride 0.9% 1,000 ML IV STA (14:33)
[2018-02-27 14:35] LABS: B-TYPE NATRIURETIC PEPTIDE 3110 pg/mL (0-450); TROPONIN I 0.02 ng/mL
[2018-02-27] MEDS ORDERED: Iohexol 350 MG/100 ML VIAL ONE (15:11)
--- NOTE | 2018-02-27 17:26 | CT ---
Date of service: 02/27/2018 PROCEDURE: CT Chest with contrast (Pulmonary Angiogram) HISTORY: SOB COMPARISON: None available. TECHNIQUE: Contiguous helical/transaxial sections were obtained of the chest in the pulmonary arterial phase of enhancement. Coronal and sagittal reformatted images were created and reviewed. Intravenous contrast dose: 100 cc Omnipaque 350 Radiation dose: Total exam DLP = 512.99 mGy-cm. This CT exam was performed using one or more of the following dose reduction techniques: Automated exposure control, adjustment of the mA and/or kV according to patient size, and/or use of iterative reconstruction technique. FINDINGS: PULMONARY ARTERIES: Evaluation of the pulmonary arteries limited due to suboptimal contrast injection as well as significant streak and beam hardening artifact generated by pacemaker battery pack in the subcutaneous tissues left anterior chest wall.. The visualized pulmonary trunk, right and left main, lobar, segmental and proximal subsegmental branches of the pulmonary arteries are well opacified with no definitive filling defects seen to suggest acute central pulmonary embolus. Pulmonary trunk measures approximately 3.5 cm.. AORTA: No acute findings. No thoracic aortic aneurysm. LUNGS: Mild passive/dependent type atelectasis seen both posterior lower lung soto. There also appears to be some minor linear atelectasis and or scarring changes in the left upper lobe, left lung base/lingular region, right upper lobe and right lung base as well. PLEURAL SPACES: Unremarkable. No effusion or pneumothorax. HEART: Heart is enlarged. No significant pericardial effusion. Ascending thoracic aorta measures approximately 3.74 cm and descending thoracic aorta measures approximately 2.4 cm. LYMPH NODES: Few small nonspecific mediastinal lymph nodes are present. No significant hilar adenopathy. Small hiatal hernia. BONES, CHEST WALL: Unremarkable. No fracture or destructive lesion OTHER FINDINGS: There appears to be mild enlargement of the thyroid gland left lobe larger than right the. Thyroid gland is also somewhat heterogeneous in appearance.. Correlation with thyroid function tests recommended. Note made of multiple tiny splenic calcifications consistent with prior exposure to a granulomatous disease process. IMPRESSION: Limited study demonstrating no definitive evidence of acute central pulmonary embolus.. Minor Linear atelectatic/scarring changes seen in the upper and lower lobes as described.
--- NOTE | 2018-02-27 17:26 | RAD ---
HISTORY: Shortness of breath COMPARISON: 09/09/2017 TECHNIQUE: Chest PA and lateral FINDINGS: LINES AND TUBES: The right PICC line terminates in the SVC. LUNG AND PLEURA: The lungs are well inflated. There is mild pulmonary venous congestion. No pleural effusion or pneumothorax. HEART AND MEDIASTINUM: Persistent moderate cardiomegaly. There is stable position of left-sided unipolar AICD. There is a 2nd left permanent pacing device overlying the lower chest. The hilar and mediastinal contours are within normal limits. SKELETAL STRUCTURES: The bony structures are within normal limits for the patient's age. VISUALIZED UPPER ABDOMEN: Normal. OTHER FINDINGS: None. IMPRESSION: Moderate cardiomegaly and mild pulmonary venous congestion. No acute findings. Right PICC line terminates in the SVC.
[2018-02-27] MEDS ORDERED: Albuterol 0.083% Inhal Sol (2.5 mg/3 mL) UD INH STA (18:15)
[2018-02-27] MEDS ORDERED: Morphine 4 mg/ml ISec IVP STA (18:36)
--- NOTE | 2018-02-27 19:10 | ED PDOC ---
Arrival/HPI - General Chief Complaint: Shortness Of Breath Time Seen by Provider: 02/27/18 12:08 Historian: Patient - History of Present Illness Narrative History of Present Illness (Text): 02/27/18 18:51 52yo female with pmhx of lupus, Cardiomyopathy, Asthma bib EMS for SOB and generalized bodyache x one week. states the SOB started this morning. Describes the SOB as "feel winded". She otherwise denies chest pain, diaphoresis, Le edema, calf pain, abdominal pain, nausea, vomiting, sick contact, travel. She reprots history of similar symptom in the past. Past Medical History - Provider Review Nursing Documentation Reviewed: Yes - Past History Past History: Non-Contributing - Infectious Disease Hx of Infectious Diseases: None - Tetanus Immunization Tetanus Immunization: Unknown - Past Medical History Past Medical History: Non-Contributing - Cardiac Hx Cardiac Disorders: Yes Hx Cardiac Arrhythmia: Yes Hx Pacemaker: Yes - Pulmonary Hx Respiratory Disorders: Yes Hx Asthma: Yes - Neurological Hx Neurological Disorder: Yes HX Cerebrovascular Accident: Yes - HEENT Hx HEENT Disorder: No - Renal Hx Renal Disorder: No - Endocrine/Metabolic Hx Endocrine Disorders: Yes Hx Systemic Lupus Erythematosus: Yes - Hematological/Oncological Hx Cancer: No - Integumentary Hx Dermatological Disorder: No - Musculoskeletal/Rheumatological Hx Musculoskeletal Disorders: Yes Hx Back Pain: Yes - Gastrointestinal Hx Gastrointestinal Disorders: No - Genitourinary/Gynecological Hx Genitourinary Disorders: No - Psychiatric Hx Psychophysiologic Disorder: Yes Hx Anxiety: Yes Hx Depression: Yes Hx Substance Use: No - Past Surgical History Past Surgical History: No Previous - Surgical History Hx Vascular Access Device: Yes Other/Comment: PACEMAKER/DEFIBRILLATOR - Anesthesia Hx Anesthesia: Yes - Suicidal Assessment Feels Threatened In Home Enviroment: No Family/Social History - Physician Review Nursing Documentation Reviewed: Yes Family/Social History: Unknown Family HX Smoking Status: Former Smoker Hx Alcohol Use: No Hx Substance Use: No Hx Substance Use Treatment: No Allergies/Home Meds Allergies/Adverse Reactions: Allergies tramadol [From Ultram] Adverse Reaction (Unknown, Verified 02/27/18 12:03) NAUSEA Home Medications: Home Meds Medication Instructions Recorded Confirmed RX: Cholecalciferol (Vitamin D3) 1 tab PO DAILY 03/09/17 02/27/18 [Vitamin D3] RX: Lisinopril [Zestril] 2.5 mg PO DAILY 05/06/17 02/27/18 RX: ALPRAZolam [Xanax] 0.25 mg PO QID PRN 08/12/17 02/27/18 RX: Albuterol HFA [Ventolin HFA 90 2 puff NEB Q4 PRN 08/12/17 02/27/18 mcg/actuation (8 g)] RX: Amiodarone [Cordarone] 200 mg PO DAILY 08/12/17 02/27/18 RX: Famotidine [Pepcid] 20 mg PO DAILY 08/12/17 02/27/18 RX: Folic Acid 1 mg PO DAILY 08/12/17 09/04/17 RX: Metoprolol Succinate XL 25 mg PO QPM 08/12/17 02/27/18 [Toprol XL] RX: Milrinone 20mg/100ml D5W 20 mg IV DAILY 08/12/17 02/27/18 [Primacor 20mg/100ml D5W] RX: Warfarin Sodium [Jantoven] 2 mg PO DAILY 09/04/17 02/27/18 Oxycodone HCl/Acetaminophen 1 tab PO BID 02/27/18 02/27/18 [Percocet 10-325 mg Tablet] RX: Milrinone [Primacor 1mg/ml Inj 436 mg IV 02/27/18 (10ml)] Review of Systems - Physician Review All systems were reviewed & negative as marked: Yes - Review of Systems Constitutional: Normal Eyes: Normal ENT: Normal Respiratory: SOB. absent: Cough, Sputum, Wheezing Cardiovascular: Normal Gastrointestinal: Normal Genitourinary Female: Normal Musculoskeletal: Myalgias Skin: Normal Neurological: Normal Endocrine: Normal Hemo/Lymphatic: Normal Psychiatric: Normal Physical Exam Vital Signs Reviewed: Yes Vital Signs Temp Pulse Resp BP Pulse Ox 02/28/18 15:03 83 20 114/70 97 02/28/18 14:00 74 02/28/18 12:26 76 133/82 02/28/18 12:00 98.4 F 76 20 134/80 97 02/28/18 09:56 121/68 02/28/18 09:36 79 121/68 02/28/18 08:00 98 F 79 17 121/68 95 02/28/18 03:30 76 129/75 02/28/18 02:35 17 02/28/18 00:00 76 131/72 02/27/18 22:00 70 119/96 H 02/27/18 21:00 98.4 F 68 123/75 02/27/18 20:36 125/85 02/27/18 20:29 81 18 125/85 98 02/27/18 19:28 80 18 102/65 99 02/27/18 17:26 77 18 117/81 99 02/27/18 16:32 75 18 121/71 100 02/27/18 15:22 79 17 118/70 100 02/27/18 13:03 78 18 135/65 98 02/27/18 12:10 17 65 L 02/27/18 12:07 98.3 F 81 17 137/66 95 02/27/18 12:03 98.1 F 81 18 137/66 98 Temperature: Afebrile Blood Pressure: Normal Pulse: Regular Respiratory Rate: Normal Appearance: Positive for: Well-Appearing, Non-Toxic, Comfortable Pain Distress: None Mental Status: Positive for: Alert and Oriented X 3 - Systems Exam Head: Present: Atraumatic, Normocephalic Pupils: Present: PERRL Extroacular Muscles: Present: EOMI Conjunctiva: Present: Normal Mouth: Present: Moist Mucous Membranes Neck: Present: Normal Range of Motion Respiratory/Chest: Present: Clear to Auscultation, Good Air Exchange. No: Respiratory Distress, Accessory Muscle Use, Wheezes, Decreased Breath Sounds, Rales, Retracting, Rhonchi Cardiovascular: Present: Regular Rate and Rhythm, Normal S1, S2. No: Murmurs Abdomen: No: Tenderness, Distention, Peritoneal Signs Back: Present: Normal Inspection Upper Extremity: Present: Normal Inspection. No: Cyanosis, Edema Lower Extremity: Present: Normal Inspection. No: Edema Neurological: Present: GCS=15, CN II-XII Intact, Speech Normal Skin: Present: Warm, Dry, Normal Color. No: Rashes Psychiatric: Present: Alert, Oriented x 3, Normal Insight, Normal Concentration Medical Decision Making ED Course and Treatment: 02/28/18 17:27 PT presented for stated history. She continued to complain of SOB and generalized body pain Lab was ordered and reviewed. Elevated D dimer and BNP was noted. Lasix was ordered and CTA ordered. CXR IMPRESSION: Moderate cardiomegaly and mild pulmonary venous congestion. No acute findings. Right PICC line terminates in the SVC. CTA IMPRESSION: Limited study demonstrating no definitive evidence of acute central pulmonary embolus.. Minor Linear atelectatic/scarring changes seen in the upper and lower lobes as described. PT was given Solu medrol, percocet and morphine in ED. On re evaluation she continued to complain of SOB and generalized bodyache Pt was admitted secondary to her persistent complaint. Case was DW Dr. Freeman and he accepted pt for admission. He also saw pt by the bedside. - Lab Interpretations Lab Results: 02/27/18 14:00 02/27/18 14:00 Lab Results 02/27/18 14:00: Free T4 1.32, Thyroxine (T4) 10.8, TSH 3rd Generation 0.19 L 02/27/18 14:00: D-Dimer, Quantitative 254 H 02/27/18 14:00: Sodium 142, Potassium 3.2 L, Chloride 105, Carbon Dioxide 26, Anion Gap 14, BUN 18, Creatinine 0.9, Est GFR ( Amer) > 60, Est GFR (Non- Af Amer) > 60, Random Glucose 147 H, Calcium 8.4, Total Bilirubin 0.3, AST 20, ALT 16, Alkaline Phosphatase 83, Lactate Dehydrogenase 593, Total Creatine Kinase 38, Troponin I 0.02 D, NT-Pro-B Natriuret Pep 3110 H, Total Protein 7.4, Albumin 3.6, Globulin 3.8, Albumin/Globulin Ratio 0.9 L 02/27/18 14:00: WBC 7.5 D, RBC 4.24, Hgb 10.7 L, Hct 35.8 L, MCV 84.4, MCH 25. 2, MCHC 29.9 L, RDW 16.2 H, Plt Count 241, MPV 10.7, Gran % 84.2 H, Lymph % (Auto) 11.6 L, [place] % (Auto) 4.0, Eos % (Auto) 0.1 L, Baso % (Auto) 0.1, Gran # 6.31, Lymph # (Auto) 0.9 L, [place] # (Auto) 0.3, Eos # (Auto) 0.0, Baso # (Auto) 0.01, ESR 65 H - RAD Interpretation Radiology Orders: 02/27/18 12:25 CHEST TWO VIEWS (PA/LAT) [RAD] Stat 02/27/18 14:35 ANGIO CHEST PE PROTOCOL [CT] Stat - Medication Orders Current Medication Orders: Acetaminophen (Tylenol 325mg Tab) 650 mg PO Q6 PRN PRN Reason: TEMP>=99.5F Acetaminophen (Tylenol 650 Mg Supp) 650 mg RC Q6H PRN PRN Reason: TEMP>=99.5F Acetaminophen (Tylenol 650 Mg Supp) 650 mg RC Q6H PRN PRN Reason: Headache Acetaminophen (Tylenol 325mg Tab) 650 mg PO Q6H PRN PRN Reason: Headache Alprazolam (Xanax) 0.25 mg PO QID PRN; Protocol PRN Reason: Anxiety Stop: 03/06/18 19:44 Last Admin: 02/28/18 10:04 Dose: 0.25 mg Behavioural Document 02/28/18 10:04 ALIPM (Rec: 02/28/18 10:04 ALIPM [id number]) Maintenance Maintenance Dose Yes Nonmedicinal Nonmedicinal Interventions Therapeutic Communication Behavior Behavior for Medication: Anxiety Re-Assess: Reassess Psych Meds Document 02/28/18 11:04 ALIPM (Rec: 02/28/18 13:46 ALIPM [id number]) Reassess Psych Med Effective Amiodarone HCl (Cordarone) 200 mg PO DAILY [facility] Last Admin: 02/28/18 09:36 Dose: 200 mg MAR Pulse and Blood Pressure Document 02/28/18 09:36 ALIPM (Rec: 02/28/18 09:37 ALIPM [id number]) Pulse Pulse Rate (60-90) 79 Blood Pressure Blood Pressure (100/60-150/90) 121/68 Aspirin (Ecotrin) 81 mg PO DAILY [facility] Last Admin: 02/28/18 09:51 Dose: Not Given Non-Admin Reason: Patient Refused Atorvastatin Calcium (Lipitor) 80 mg PO DIN [facility] Docusate Sodium (Colace) 100 mg PO TID [facility] Last Admin: 02/28/18 13:45 Dose: Not Given Non-Admin Reason: Patient Refused Ergocalciferol (Drisdol 50,000 Intl Units Cap) 1 cap PO Q7D [facility] Last Admin: 02/28/18 12:15 Dose: 1 cap Famotidine (Pepcid) 20 mg PO DAILY [facility] Last Admin: 02/28/18 09:40 Dose: 20 mg Fluticasone Propionate (Flonase) 1 actuation NS DAILY [facility] Last Admin: 02/28/18 13:22 Dose: 1 applic Folic Acid (Folic Acid) 1 mg PO DAILY [facility] Last Admin: 02/28/18 09:37 Dose: 1 mg Furosemide (Lasix) 40 mg IVP BID [facility] Last Admin: 02/28/18 09:56 Dose: 40 mg MAR Blood Pressure Document 02/28/18 09:56 ALIPM (Rec: 02/28/18 09:57 [id number]) Blood Pressure Blood Pressure (100/60-150/90) 121/68 IVP Administration Document 02/28/18 09:56 ALIPM (Rec: 02/28/18 09:57 [id number]) Charges for Administration # of IVP Administrations 1 Hydrocortisone (Cortef) 40 mg PO DAILY [facility] Last Admin: 02/28/18 12:15 Dose: 40 mg Milrinone Lactate/Dextrose (Primacor 20mg/100ml D5w) 100 mls @ 12.791 mls/hr IV .Q7H50M [facility]; Protocol Last Admin: 02/28/18 12:26 Dose: 12.791 mls/hr eMAR Start Stop Document 02/28/18 12:26 ALIPM (Rec: 02/28/18 12:27 [id number]) Intravenous Solution Start Date 02/28/18 Start Time 12:27 [facility] Pulse and Blood Pressure Document 02/28/18 12:26 ALIPM (Rec: 02/28/18 12:27 [id number]) Pulse Pulse Rate (60-90) 76 Blood Pressure Blood Pressure (100/60-150/90) 133/82 Ketorolac Tromethamine (Toradol) 15 mg IVP Q6H PRN PRN Reason: Pain, severe (8-10) Levalbuterol HCl (Xopenex) 0.63 mg IH [id number] [facility] Last Admin: 02/28/18 14:35 Dose: 0.63 mg Metoprolol Succinate (Toprol Xl) 25 mg PO QPM [facility] Ondansetron HCl (Zofran Inj) 4 mg IVP Q4H PRN PRN Reason: Nausea/Vomiting Oxycodone/Acetaminophen (Percocet 10/325 Mg Tab) 1 tab PO BID PRN PRN Reason: Pain, severe (8-10) Last Admin: 02/28/18 08:09 Dose: 1 tab [facility] Pain Assessment Document 02/28/18 08:09 ALIPM (Rec: 02/28/18 08:10 ALIPM [id number]) Pain Reassessment Is this a pain reassessment? Yes Sleep Is patient sleeping during reassessment? No Presence of Pain Presence of Pain Yes Pain Scale Used Protocol: PSCALES Pain Scale Used Numeric Location Pain Location Body Site Back Description Description Throbbing Intensity of Pain at present 8 Pain Behavior Withdrawal from Touch Facial Grimacing Aggravating Factors None Alleviating Factors/Management Medication Techniques Alleviating Factors Medication Re-Assess: [facility] Pain Assessment Document 02/28/18 09:09 ALIPM (Rec: 02/28/18 13:45 ALIPM [id number]) Pain Reassessment Is this a pain reassessment? Yes Sleep Is patient sleeping during reassessment? No Presence of Pain Presence of Pain No Pantoprazole Sodium (Protonix Ec Tab) 40 mg PO 0600 [facility] Last Admin: 02/28/18 06:13 Dose: 40 mg Polyethylene Glycol (Miralax) 17 gm PO BID [facility] Last Admin: 02/28/18 13:26 Dose: Not Given Non-Admin Reason: Patient Refused Potassium Chloride (K-Dur 20 Meq Er Tab) 20 meq PO DAILY [facility] Last Admin: 02/28/18 09:37 Dose: 20 meq Warfarin Sodium (Coumadin) 2 mg PO DAILY [facility]; Protocol Last Admin: 02/28/18 12:15 Dose: 2 mg Discontinued Medications Albuterol Sulfate (Albuterol 0.083% Inhal Anahi (2.5 Mg/3 Ml) Ud) 2.5 mg INH STAT STA Stop: 02/27/18 18:16 Last Admin: 02/27/18 19:27 Dose: 2.5 mg Atorvastatin Calcium (Lipitor) 40 mg PO DIN [facility] Diphenhydramine HCl (Benadryl) 25 mg IVP STAT STA Stop: 02/28/18 00:19 Last Admin: 02/28/18 00:36 Dose: 25 mg IVP Administration Document 02/28/18 00:36 B.P (Rec: 02/28/18 00:36 [id number] Charges for Administration # of IVP Administrations 1 Furosemide (Lasix) 40 mg IVP STAT STA Stop: 02/27/18 19:31 Last Admin: 02/27/18 20:36 Dose: 40 mg MAR Blood Pressure Document 02/27/18 20:36 CAROL (Rec: 02/27/18 20:36 CAROL [id number]) Blood Pressure Blood Pressure (100/60-150/90) 125/85 IVP Administration Document 02/27/18 20:36 CAROL (Rec: 02/27/18 20:36 CAROL [id number]) Charges for Administration # of IVP Administrations 1 Furosemide (Lasix) 20 mg IVP DAILY ANA LILIA Methylprednisolone (Solu-Medrol) 125 mg IVP STAT STA Stop: 02/27/18 14:34 Last Admin: 02/27/18 15:16 Dose: 125 mg IVP Administration Document 02/27/18 15:16 CAROL (Rec: 02/27/18 15:16 CAROL [id number]) Charges for Administration # of IVP Administrations 1 Morphine Sulfate (Morphine) 4 mg IVP STAT STA Stop: 02/27/18 18:37 Last Admin: 02/27/18 19:27 Dose: 4 mg MAR Pain Assessment Document 02/27/18 19:27 CAROL (Rec: 02/27/18 19:27 CAROL [id number]) Pain Reassessment Is this a pain reassessment? Yes Presence of Pain Presence of Pain Yes Pain Scale Used Protocol: [facility] Pain Scale Used Numeric Location Pain Location Body Site Generalized Description Description Constant Intensity of Pain at present 8 IVP Administration Document 02/27/18 19:27 CAROL (Rec: 02/27/18 19:27 CAROL [id number]) Charges for Administration # of IVP Administrations 1 Oxycodone/Acetaminophen (Percocet 5/325 Mg Tab) 1 tab PO STAT STA Stop: 02/27/18 12:26 Last Admin: 02/27/18 13:21 Dose: 1 tab MAR Pain Assessment Document 02/27/18 13:21 CAROL (Rec: 02/27/18 13:21 CAROL [id number]) Pain Reassessment Is this a pain reassessment? Yes Presence of Pain Presence of Pain Yes [facility] Scale Used [facility] Used Numeric Location Pain Location Body Site Generalized Description Intensity of Pain at present 8 Potassium Chloride (K-Dur 20 Meq Er Tab) 40 meq PO STAT STA Stop: 02/27/18 14:32 Last Admin: 02/27/18 15:15 Dose: 40 meq Disposition/Present on Arrival - Present on Arrival Any Indicators Present on Arrival: No History of DVT/PE: No History of Uncontrolled Diabetes: No Urinary Catheter: No History of Decub. Ulcer: No History Surgical Site Infection Following: None - Disposition Have Diagnosis and Disposition been Completed?: Yes Diagnosis: Shortness of breath, Intractable pain Disposition: HOSPITALIZED Disposition Time: 21:00 Patient Plan: Admission Condition: STABLE
[2018-02-27] MEDS: Levalbuterol 0.63 MG/3 ML Inhal Soln UD IH SCH (20:36)
[2018-02-27 21:43] LABS: FREE T4 1.32 ng/dL (0.78-2.19); T4 10.8 ug/dL (5.5-11.0)
[2018-02-27 22:21] LABS: INR 1.69; PARTIAL THROMBOPLASTIN TIME 35.4 Seconds (25.1-36.5); PROTHROMBIN TIME 19.5 SECONDS (9.4-12.5)
[2018-02-27] MEDS: Milrinone 20mg/100ml D5W 100 ML IV SCH (22:34)
[2018-02-27 22:37] LABS: TROPONIN I 0.01 ng/mL
[2018-02-27 22:39] LABS: ALBUMIN 4.1 g/dL (3.0-4.8); ALT/SGPT 16 U/L (7-56); AST/SGOT 22 U/L (14-36); BILIRUBIN,DIRECT 0.2 mg/dL (0.0-0.4); BLOOD UREA NITROGEN 16 mg/dL (7-21); CALCIUM 8.9 mg/dL (8.4-10.5); GFR NON-AFRICAN AMERICAN > 60; HDL CHOLESTEROL 62 mg/dL (29-60); URIC ACID 7.5 mg/dL (2.5-6.2)
[2018-02-27 22:40] LABS: LDL CHOLESTEROL 149 mg/dL (0-129)
[2018-02-28] MEDS ORDERED: DiphenhydrAMINE 50 mg/ml Inj IVP STA (00:18)
[2018-02-28 00:58] LABS: PH,URINE 5.5 (4.7-8.0); URINE BILIRUBIN NEGATIVE (NEGATIVE); URINE BLOOD NEGATIVE (NEGATIVE); URINE GLUCOSE (UA) NEGATIVE (NEGATIVE); URINE LEUKOCYTE ESTERASE NEGATIVE Leu/uL (NEGATIVE); URINE PROTEIN NEGATIVE mg/dL (<30 mg/dL); URINE UROBILINOGEN 0.2 E.U./dL (<1 E.U./dL)
[2018-02-28 01:01] LABS: URINE APPEARANCE CLEAR (CLEAR); URINE COLOR YELLOW (YELLOW)
[2018-02-28 01:33] LABS: BARBITURATES, UR NEGATIVE (NEGATIVE); BENZODIAZEPINES, UR NEGATIVE (NEGATIVE); OPIATES, UR POSITIVE (NEGATIVE); PHENCYCLIDINE, UR NEGATIVE (NEGATIVE)
[2018-02-28] MEDS: Oxycodone/Acetaminophen 10/325 mg Tab PO PRN ×3 (02:12→20:11)
[2018-02-28 02:52] LABS: TROPONIN I < 0.01 ng/mL
[2018-02-28] MEDS: Milrinone 20mg/100ml D5W 100 ML IV SCH ×3 (04:00→20:12)
[2018-02-28] MEDS: Pantoprazole 40 mg EC Tab PO SCH (06:13)
[2018-02-28 06:39] LABS: GRAN # 8.21 (1.4-6.5); GRAN % 88.9 % (50.0-68.0); HEMOGLOBIN 10.8 g/dL (12.0-16.0); LYMPH # 0.8 (1.2-3.4); LYMPH % 8.3 % (22.0-35.0); MEAN CORPUSCULAR HGB CONC 29.8 g/dl (31.0-37.0); MEAN PLATELET VOLUME 10.1 fl (7.0-11.0); MONO # 0.3 (0.1-0.6); MONO % 2.8 % (1.0-6.0); RBC 4.32 10^6/uL (3.5-6.1); RED CELL DISTRIBUTION WIDTH 16.1 % (11.5-14.5); WHITE BLOOD COUNT 9.2 10^3/ul (4.5-11.0)
[2018-02-28 06:48] LABS: INR 1.63; PARTIAL THROMBOPLASTIN TIME 34.2 Seconds (25.1-36.5); PROTHROMBIN TIME 18.9 SECONDS (9.4-12.5)
[2018-02-28 07:03] LABS: TROPONIN I 0.02 ng/mL
[2018-02-28 07:04] LABS: ALBUMIN 3.7 g/dL (3.0-4.8); ALT/SGPT 12 U/L (7-56); AST/SGOT 18 U/L (14-36); BILIRUBIN,DIRECT 0.1 mg/dL (0.0-0.4); BLOOD UREA NITROGEN 18 mg/dL (7-21); CALCIUM 8.9 mg/dL (8.4-10.5); GFR NON-AFRICAN AMERICAN > 60; HDL CHOLESTEROL 49 mg/dL (29-60)
[2018-02-28 07:07] LABS: LDL CHOLESTEROL 140 mg/dL (0-129)
--- NOTE | 2018-02-28 08:33 | HP ---
HISTORY OF PRESENT ILLNESS: The patient is a 52-year-old female came to the [facility] emergency room by the [facility] complaining of shortness of breath. According to the triage note, the patient presented with these complaints. According to the ER medical staff evaluation, the patient came to the emergency room complaining of shortness of breath and generalized body ache. The patient states that she feels winded and she also has dyspnea on exertion. REVIEW OF SYSTEMS: Thirteen-system review was done, pertinent positive and negative dictated above. CODE STATUS: Full code. LIVING WILL ADVANCE DIRECTIVE: Not available. ALLERGIES: TRAMADOL. HEIGHT: 5 feet 3 inches. WEIGHT: 188. BMI: 34. SOCIAL HISTORY: Positive for former smoker. Denies drug use. Denies communicable transmissible disease. Denies alcohol use. FAMILY HISTORY: Positive for hypertension and heart problem. OCCUPATIONAL HISTORY: Disabled. MENSTRUAL HISTORY: The patient denies being . HOME MEDICATIONS: Amiodarone 200 mg daily, hydrocortisone 40 mg daily, Flonase nasal spray, folic acid 1 mg daily, Coumadin 2 mg daily, K-Dur 20 mEq daily, Pepcid 20 mg daily, Percocet 10/325 1 tablet b.i.d., Primacor drip, Toprol XL 25 mg daily, albuterol HFA, vitamin D3 1000 units daily, Xanax 0.25 four times a day p.r.n., Zestril 2.5 mg daily. PAST MEDICAL, SURGICAL, AND PSYCHIATRIC HISTORY: Positive for end-stage dilated cardiomyopathy, IV milrinone dependent, history of AICD implant, history of systemic lupus, history of questionable atrial fibrillation, history of hypokalemia, history of chronic pain and narcotic dependent pain syndrome, history of anxiety, history of hypovitaminosis D, history of abdominal pain, history of dysmenorrhea, history of anxiety disorder, history of congestive heart failure, history of ovarian cyst, history of questionable cerebrovascular accident, history of nicotine dependence, history of urinary tract infection, history of multiple exacerbation of congestive heart failure, history of intractable pain disorder, history of systemic lupus erythematosus with exacerbation, history of near syncope, history of myalgia, history of nontraumatic hematoma of the left breast, history of antiphospholipid antibody syndrome, history of hypercoagulopathy, history of hypercoagulable syndrome, history of hyperlipidemia, history of fungemia, history of line sepsis, history of iron-deficiency anemia, history of mastitis, history of vaginal candidiasis, history of pulmonary embolism, history of sick euthyroid syndrome. The patient's past medical history is significant for IV milrinone dependent end-stage cardiomyopathy, history of noncompliance, history of nonischemic dilated cardiomyopathy, history of AICD endocarditis, history of patent foramen ovale, history of anxiety and depression, right breast cellulitis, pneumonia, history of cerebrovascular accident, history of nonmalignant press calcification, history of juan m glabrata fungemia secondary to PICC line 2017, history of Port-A-Cath removal, history of line sepsis secondary to AICD implant with juan m glabrata fungemia and Enterococcus bacteremia, history of Serratia mastitis, history of bilateral breast mastitis growing coagulase-negative Staphylococcus and Klebsiella. The patient's past medical history is also significant for history of adrenal insufficiency, history of dilated cardiomyopathy, history of endocarditis, history of cerebrovascular accident, history of breast cellulitis, history of former smoker. Past medical history is significant for history of depression and anxiety in remission. Past medical history is also significant for history of noncompliance, history of TRAMADOL ALLERGIES, history of bacteremia, history of cardiomyopathy. Past medical history is also significant for history of , history of PICC line placement and history of right breast cellulitis, right breast mastitis, history of cardiomyopathy with left ventricular ejection fraction of 15%, history of [id number] systolic congestive heart failure. Past medical history is also significant for fungemia, history of antiphospholipid antibody syndrome, history of atrial fibrillation. Past medical history is also significant for history of severe dilated cardiomyopathy with ejection fraction of less than 15%, history of severe mitral regurgitation, history of possible mitral valve endocarditis with partially flail anterior leaflet, history of moderate tricuspid regurgitation, history of poor compliance, history of moderate tricuspid regurgitation, history of [id number] mitral regurgitation, history of uterine fibroid, history of VRE and E-coli urinary tract infection, history of Enterococcus faecalis and Juan M albicans line sepsis, history of Klebsiella pneumoniae and Citrobacter pneumonia, history of Juan M parapsilosis bacteremia, history of Klebsiella pneumoniae urine tract infection, history of Serratia marcescens and Enterococcus faecalis right breast mastitis, history of Streptococcus anginosus urinary tract infection, history of Klebsiella pneumoniae and Staphylococcus aureus right and left breast mastitis and cellulitis, history of Escherichia coli urinary tract infection. PHYSICAL EXAMINATION: GENERAL: The patient was seen in the emergency room in bed 17. The patient is sitting up in the bed. The patient is awake, responsive. VITAL SIGNS: T-max 98.3. Telemetry shows heart rate of 75, 80; blood pressure 125/85; respiration 18; O2 sat 98% on 2 liters. HEENT: Head: Normocephalic, atraumatic. HEENT examination shows pink pale conjunctivae. Anicteric sclerae. No oropharyngeal lesion. No neck rigidity. Positive left upper chest AICD and also left lateral chest AICD noted. Positive upper extremity PICC line noted. CHEST: Examination shows kyphosis. Positive decreased breath sound at the bases, left more than the right. CARDIOVASCULAR: S1, S2. Positive systolic murmur at left sternal border, right second intercostal space, left second intercostal space. ABDOMEN: Soft. Positive bowel sounds. GENITALIA: Female. RECTAL: Examination is deferred. EXTREMITIES: Shows trace swelling of the lower extremity, nonpitting edema. MUSCULOSKELETAL: Examination shows a body mass index of 34. NEUROLOGIC: The patient is alert, awake, oriented x3. Cranial nerves II-XII are grossly intact. Motor strength is 5/5. Gait examination is not tested. DIAGNOSTICS: CBC: Hemoglobin/hematocrit 10.7/35.8; platelet 241; granulocytes 85, ESR is 65, D-dimer 254. PT/PTT pending. CMP, LFTs reviewed. Potassium 3.2, glucose 147. BNP 3110, T4 10.8. The patient underwent a CT angio and chest x-ray in the emergency room and EKG was done in the emergency room. The patient was seen and evaluated by Dr. Jeb Pacheco. CT chest results were reviewed which was negative for PE. The patient's chest x-ray results were reviewed. EKG was reviewed. The patient was treated in the emergency room by Jeb Pacheco. The patient was given DuoNeb nebulizer. The patient was given potassium supplementation, Lasix 40 mg, morphine 4 mg, Percocet 5/325 and Solu-Medrol 125 was given and the patient was advised to be admitted. IMPRESSION: 1. Acute on chronic recurrent systolic congestive heart failure with dilated cardiomyopathy. 2. Symptomatic acute exacerbation of systolic congestive heart failure with shortness of breath, dyspnea on exertion and weakness. 3. Normocytic anemia. 4. Granulocytosis. 5. Elevated erythrocyte sedimentation rate. 6. History of antiphospholipid antibody syndrome. 7. History of systemic lupus erythematosus. 8. Elevated D-dimer. 9. Hypokalemia. 10. Steroid-induced hyperglycemia. 11. Acute recurrent systolic congestive heart failure with elevated BNP. 12. Anxiety disorder. 13. Left axis deviation. 14. Bibasilar atelectasis and left upper lobe, left lingular, right upper lobe, right lung atelectasis. 15. Cardiomegaly. 16. 3.74 cm ascending thoracic aorta. 17. Mediastinal lymphadenopathy. 18. Small hiatal hernia. 19. Left thyromegaly. 20. Splenic calcification. 21. Right upper extremity PICC line placement. 22. Chronic narcotic-dependent pain syndrome. 23. History of hypovitaminosis D. 24. History of congestive heart failure. 25. History of cerebrovascular accident. 26. History of exacerbation of systemic lupus erythematosus. 27. History of acute recurrent systolic congestive heart failure, history of hypercoagulable syndrome with antiphospholipid antibody syndrome. PLAN: At this time, the patient has been admitted to telemetry with continuation of her milrinone drip. The patient has been ordered serial labs, serial CPK, serial LFTs, magnesium, serial cardiac enzymes, daily PT/PTT. Cardiology consultation ordered. The patient has been ordered Colace 100 mg twice a day. The patient has been ordered amiodarone 200 mg daily, Colace 100 three times a day, hydrocortisone 40 mg daily, Coumadin 2 mg daily, Drisdol 50,000 weekly, Ecotrin 81 mg daily, Flonase nasal spray, folic acid 1 mg daily, K-Dur 20 mEq daily, Lasix 20 mg IV daily, the patient received Lasix 40 IV in the emergency room, Lipitor 40 mg daily, MiraLax 17 g twice a day, Pepcid 20 mg daily, Percocet 10/325 1 tablet b.i.d. p.r.n., milrinone drip to be reordered at 0.5 mcg, Protonix 40 daily, Toprol XL 25 mg daily, Tylenol p.r.n., Xanax 0.25 four times a day p.r.n., Xopenex nebulizer, Zofran 4 IV every 4 p.r.n. Repeat EKG, heart-healthy diet, out of bed, BAKARI stockings, SCDs, head of the bed at 30 degrees has been ordered. On her request, the patient's laboratory immunologist, Dr. Kahn was contacted at [phone], message was left at the request of the patient that the patient has been admitted to [facility]. At present, the patient is awaiting for a telemetry bed. The patient's further management will be dependent upon the patient's clinical condition, hemodynamic status and as per the patient's response to therapeutic intervention, as per the patient's diagnostic test results and as per recommendation by all the physicians involved in the care of the patient. The patient has been updated about her condition, need for hospitalization, need for further management, need for further treatment was explained and discussed with the patient at length and all questions concerned answered, which she acknowledged and understands. Dictated and electronically signed, not read. Ashok Freeman MD
[2018-02-28] MEDS: Levalbuterol 0.63 MG/3 ML Inhal Soln UD IH SCH ×3 (09:00→19:51)
--- NOTE | 2018-02-28 09:14 | CARD ---
APPROVED REPORT Date of service: 02/27/2018 EKG Measurement Heart [id number] <Conclusion> RSR PVCs LAD PRWP NSSTW changes
[2018-02-28] MEDS ORDERED: Ergocalciferol 50,000 Intl Units Cap PO SCH (10:00)
[2018-02-28] MEDS ORDERED: Non Formulary Medication (Cholecalciferol (Vitamin D3) [Vitamin D3] 1 TAB) PO SCH (10:00)
[2018-02-28] MEDS ORDERED: Potassium Chloride 20 mEq ER Tab PO SCH (10:00)
--- NOTE | 2018-02-28 13:00 | US ---
Date of service: 02/28/2018 HISTORY: Thyromegaly TECHNIQUE: Sonographic evaluation of the thyroid gland. COMPARISON: CTA chest performed 02/27/18 FINDINGS: RIGHT LOBE: Measures 5.3 x 1.8 x 2.4 cm. Heterogeneous echotexture. Unremarkable blood flow is demonstrated. Nodules: Complex right midpole lesion measures approximately 4 x 4 x 2 mm. LEFT LOBE: Measures 5.4 x 1.7 x 2.7 cm. Heterogeneous echotexture. Unremarkable blood flow is demonstrated. Nodules: There are 2 cystic lesions identified at the level of the mid pole measuring approximately 3 x 2 x 2 mm and 2 x 3 x 2 mm. ISTHMUS: Measures 0.6 cm. Heterogeneous echotexture. Unremarkable blood flow is demonstrated. Nodules: Cystic lesion measures 3 x 3 x 2 mm. OTHER FINDINGS: None . IMPRESSION: Tiny complex right mid pole lesion measures maximally 4 mm. Two cystic foci within the left thyroid lobe and isthmus measuring 3 mm in maximum dimension. Heterogeneous parenchyma.
[2018-02-28] MEDS: Fluticasone Nasal 50 mcg/Spray NS SCH (13:22)
[2018-02-28] MEDS: POLYETHYLENE GLYCOL 3350 17 GM/Dose PACKET PO SCH ×2 (13:26→18:37)
--- NOTE | 2018-02-28 13:42 | CON ---
DATE: 02/28/2018 CARDIOLOGY CONSULTATION HISTORY: The patient is a 52-year-old woman who presents with progressive pedal edema and shortness of breath consistent with CHF. PAST MEDICAL HISTORY: Extensive, has been well worked up. She has end-stage dilated cardiomyopathy with an ejection fraction of 13%, treated both in [facility] as well as in [facility]. The patient is on home milrinone and is working with the heart transplant program at [facility]. She has an ICD as well as a biventricular pacemaker. She is on amiodarone as well as anticoagulation at home. Currently, the patient received Lasix in the Emergency Room and felt better. Her edema is better. The etiology of her cardiomyopathy is unknown. However, she does suffer from lupus erythematosus, as well as she states she has been status post catheterization which reveals normal coronary arteries. SOCIAL HISTORY: The patient does not smoke. REVIEW OF SYSTEMS: A 14-point review of systems was reviewed in detail. His symptoms are predominately shortness of breath and pedal edema. PHYSICAL EXAMINATION: VITAL SIGNS: The blood pressure 121/68, heart rates in the 80s. NECK: Negative JVD. LUNGS: Decreased breath sounds without rales. HEART: Reveals S1, S2. EXTREMITIES: Without edema. LABORATORY DATA: Hemoglobin is 10.8. Chemistries, BUN and creatinine are normal. Troponins are negative. The ProBNP is 3000. Her cholesterol is 236. IMPRESSION: 1. Acute systolic congestive heart failure. 2. End-stage dilated cardiomyopathy. 3. History of lupus erythematosus. 4. Diabetes mellitus. 5. Pedal edema. 6. Dyspnea. Given these findings, we will continue her on her home IV milrinone at 0.5 mcg/kg per minute. We will add Lasix 40 IV b.i.d. Rm Alvarez MD
[2018-02-28] MEDS ORDERED: Iohexol 350 MG/100 ML VIAL ONE (14:02)
--- NOTE | 2018-02-28 14:16 | CP.PCM.HP ---
History of Present Illness - History of Present Illness History of Present Illness: PGY-[address] Freeman Mrs Russo is a 52 year old female with a PMHx of CHF 2/2 non-ischemic cardiomyopathy s/p AICD, recent generator [place] [address] Kahn, endocarditis, on heart transplant list [facility], patent foramen ovale, ASD, on coumadin, SLE, CVA x2 w/ residual right-sided weakness, non-malignant breast calcifications B/L, Pulmonary embolism, Anxiety, depression & R breast cellulitis who presents to the ER for 1 day of shortness of breath which she describes as "being winded". She stated this has happened before and decided to come to the ER before symptoms worsened. Additionally she reports low back pain with radiation in her legs bilaterally which is chronic but which has worsened in the past few weeks. She states 1 month ago she had a URI and a UTI, she was treated at [facility] at that time. She otherwise denies chest pain, diaphoresis, LE edema, calf pain, abdominal pain, nausea, vomiting, sick contact, travel. PMD: Dr. Maxwell Bit Welder: Dr Kahn PMHx: CHF 2/2 non-ischemic cardiomyopathy s/p AICD, recent generator change [place] [address] Kahn, endocarditis, on heart transplant list [facility], patent foramen ovale, ASD, on coumadin, SLE, CVA x2 w/ residual right-sided weakness, non- malignant breast calcifications B/L, Pulmonary embolism, Anxiety, depression & R breast cellulitis PSHx: Breast biopsies B/L, hematoma evacuation, C sec (1993), ICD placement Allergies: oxycodone, tramadol - not true allergies, simply told not to take them in the past Meds: See MAR SocialHx: Former smoker 10 year pack year hx, quit 5 yrs ago, no ETOH and drug use FHx: Heart transplant in father, esophageal CA in mother Present on Admission - Present on Admission Any Indicators Present on Admission: No Review of Systems - Constitutional Constitutional: absent: Chills, Fever - EENT Eyes: absent: Blurred Vision - Cardiovascular Cardiovascular: Dyspnea, Dyspnea on Exertion. absent: Chest Pain - Respiratory Respiratory: Dyspnea. absent: Cough, Hemoptysis - Gastrointestinal Gastrointestinal: absent: Abdominal Pain - Genitourinary Genitourinary: absent: Dysuria - Musculoskeletal Musculoskeletal: Back Pain - Neurological Neurological: absent: Abnormal Speech, Convulsions Past Patient History - Infectious Disease Hx of Infectious Diseases: None - Tetanus Immunizations Tetanus Immunization: Unknown - Past Medical History & Family History Past Medical History?: Yes - Past Social History Smoking Status: Former Smoker - CARDIAC Hx Cardiac Disorders: Yes Hx Cardia Arrhythmia: Yes Hx Pacemaker: Yes - PULMONARY Hx Respiratory Disorders: Yes Hx Asthma: Yes - NEUROLOGICAL Hx Neurological Disorder: Yes HX Cerebrovascular Accident: Yes - HEENT Hx HEENT Problems: No - RENAL Hx Chronic Kidney Disease: No - ENDOCRINE/METABOLIC Hx Endocrine Disorders: Yes Hx Systemic Lupus Erythematosus: Yes - HEMATOLOGICAL/ONCOLOGICAL Hx Blood Disorders: Yes Other/Comment: SLE - INTEGUMENTARY Hx Dermatological Problems: No - MUSCULOSKELETAL/RHEUMATOLOGICAL Hx Musculoskeletal Disorders: Yes Hx Back Pain: Yes Hx Falls: No - GASTROINTESTINAL Hx Gastrointestinal Disorders: No - GENITOURINARY/GYNECOLOGICAL Hx Genitourinary Disorders: No - PSYCHIATRIC Hx Psychophysiologic Disorder: Yes Hx Anxiety: Yes Hx Depression: Yes - SURGICAL HISTORY Hx Surgeries: Yes Other/Comment: PACEMAKER/DEFIBRILLATOR - ANESTHESIA Hx Anesthesia: Yes Meds Allergies/Adverse Reactions: Allergies Allergy/AdvReac Type Severity Reaction Status Date / Time tramadol [From Ultram] AdvReac Unknown NAUSEA Verified 02/27/18 12:03 Physical Exam - Constitutional Appears: Well, No Acute Distress - Head Exam Head Exam: ATRAUMATIC, NORMAL INSPECTION - Eye Exam Eye Exam: EOMI, Normal appearance, PERRL - ENT Exam ENT Exam: Mucous Membranes Moist - Neck Exam Neck exam: Positive for: Normal Inspection - Respiratory Exam Respiratory Exam: Rales, Wheezes - Cardiovascular Exam Cardiovascular Exam: REGULAR RHYTHM, +S1, +S2, +S4 - GI/Abdominal Exam GI & Abdominal Exam: Normal Bowel Sounds. absent: Tenderness - Extremities Exam Extremities exam: Positive for: normal inspection, pedal edema. Negative for: calf tenderness Additional comments: +1 pedal edema bilaterally - Back Exam Back exam: muscle spasm, NORMAL INSPECTION, vertebral tenderness. absent: CVA tenderness (L), CVA tenderness (R), rash noted - Neurological Exam Neurological exam: Alert, CN II-XII Intact, Oriented x3 - Psychiatric Exam Psychiatric exam: Normal Affect - Skin Skin Exam: Intact, Normal Color Results - Vital Signs Recent Vital Signs: Last Vital Signs Temp 98 F 02/28/18 08:00 Pulse 76 02/28/18 12:26 Resp 17 02/28/18 08:00 BP 133/82 02/28/18 12:26 Pulse Ox 95 02/28/18 08:00 - Labs Result Diagrams: 02/28/18 06:20 02/28/18 06:20 Labs: Laboratory Results - last 24 hr 02/27/18 02/27/18 02/27/18 14:00 14:00 14:00 WBC 7.5 D RBC 4.24 Hgb 10.7 L Hct 35.8 L MCV 84.4 MCH 25.2 MCHC 29.9 L RDW 16.2 H Plt Count 241 MPV 10.7 Gran % 84.2 H Lymph % (Auto) 11.6 L Pitt % (Auto) 4.0 Eos % (Auto) 0.1 L Baso % (Auto) 0.1 Gran # 6.31 Lymph # (Auto) 0.9 L Pitt # (Auto) 0.3 Eos # (Auto) 0.0 Baso # (Auto) 0.01 ESR 65 H PT INR APTT D-Dimer, Quantitative 254 H Sodium 142 Potassium 3.2 L Chloride 105 Carbon Dioxide 26 Anion Gap 14 BUN 18 Creatinine 0.9 Est GFR ( Amer) > 60 Est GFR (Non-Af Amer) > 60 Random Glucose 147 H Hemoglobin A1c Uric Acid Calcium 8.4 Phosphorus Magnesium Total Bilirubin 0.3 Direct Bilirubin AST 20 ALT 16 Alkaline Phosphatase 83 Lactate Dehydrogenase 593 Total Creatine Kinase 38 Troponin I 0.02 D NT-Pro-B Natriuret Pep 3110 H Total Protein 7.4 Albumin 3.6 Globulin 3.8 Albumin/Globulin Ratio 0.9 L Triglycerides Cholesterol LDL Cholesterol Direct HDL Cholesterol 25-OH Vitamin D Total Free T4 Thyroxine (T4) TSH 3rd Generation Urine Color Urine Appearance Urine pH Ur Specific [place] Urine Protein Urine Glucose (UA) Urine Ketones Urine Blood Urine Nitrate Urine Bilirubin Urine Urobilinogen Ur Leukocyte Esterase Urine HCG, Qual Urine Opiates Screen Urine Methadone Screen Ur Barbiturates Screen Ur Phencyclidine Scrn Ur Amphetamines Screen U Benzodiazepines Scrn U Oth Cocaine Metabols U Cannabinoids Screen 02/27/18 02/27/18 02/27/18 14:00 22:06 22:06 WBC RBC Hgb Hct MCV MCH MCHC RDW Plt Count MPV Gran % Lymph % (Auto) Pitt % (Auto) Eos % (Auto) Baso % (Auto) Gran # Lymph # (Auto) Pitt # (Auto) Eos # (Auto) Baso # (Auto) ESR PT 19.5 H INR 1.69 APTT 35.4 D-Dimer, Quantitative Sodium 143 Potassium 3.9 Chloride 103 Carbon Dioxide 28 Anion Gap 15 BUN 16 Creatinine 0.9 Est GFR ( Amer) > 60 Est GFR (Non-Af Amer) > 60 Random Glucose 180 H Hemoglobin A1c Uric Acid 7.5 H Calcium 8.9 Phosphorus 3.0 Magnesium 2.1 Total Bilirubin 0.3 Direct Bilirubin 0.2 AST 22 ALT 16 Alkaline Phosphatase 98 Lactate Dehydrogenase Total Creatine Kinase 40 Troponin I 0.01 D NT-Pro-B Natriuret Pep Total Protein 8.3 Albumin 4.1 Globulin 4.2 Albumin/Globulin Ratio 1.0 L Triglycerides 72 Cholesterol 254 H LDL Cholesterol Direct 149 H HDL Cholesterol 62 H 25-OH Vitamin D Total Free T4 1.32 Thyroxine (T4) 10.8 TSH 3rd Generation 0.19 L Urine Color Urine Appearance Urine pH Ur Specific [place] Urine Protein Urine Glucose (UA) Urine Ketones Urine Blood Urine Nitrate Urine Bilirubin Urine Urobilinogen Ur Leukocyte Esterase Urine HCG, Qual Urine Opiates Screen Urine Methadone Screen Ur Barbiturates Screen Ur Phencyclidine Scrn Ur Amphetamines Screen U Benzodiazepines Scrn U Oth Cocaine Metabols U Cannabinoids Screen 02/27/18 02/28/18 02/28/18 22:06 00:40 00:40 WBC RBC Hgb Hct MCV MCH MCHC RDW Plt Count MPV Gran % Lymph % (Auto) Pitt % (Auto) Eos % (Auto) Baso % (Auto) Gran # Lymph # (Auto) Pitt # (Auto) Eos # (Auto) Baso # (Auto) ESR PT INR APTT D-Dimer, Quantitative Sodium Potassium Chloride Carbon Dioxide Anion Gap BUN Creatinine Est GFR ( Amer) Est GFR (Non-Af Amer) Random Glucose Hemoglobin A1c 6.2 Uric Acid Calcium Phosphorus Magnesium Total Bilirubin Direct Bilirubin AST ALT Alkaline Phosphatase Lactate Dehydrogenase Total Creatine Kinase Troponin I NT-Pro-B Natriuret Pep Total Protein Albumin Globulin Albumin/Globulin Ratio Triglycerides Cholesterol LDL Cholesterol Direct HDL Cholesterol 25-OH Vitamin D Total Free T4 Thyroxine (T4) TSH 3rd Generation Urine Color Yellow Urine Appearance Clear Urine pH 5.5 Ur Specific [place] 1.015 Urine Protein Negative Urine Glucose (UA) Negative Urine Ketones Negative Urine Blood Negative Urine Nitrate Negative Urine Bilirubin Negative Urine Urobilinogen 0.2 Ur Leukocyte Esterase Negative Urine HCG, Qual Urine Opiates Screen Positive H Urine Methadone Screen Negative Ur Barbiturates Screen Negative Ur Phencyclidine Scrn Negative Ur Amphetamines Screen Negative U Benzodiazepines Scrn Negative U Oth Cocaine Metabols Negative U Cannabinoids Screen Negative 02/28/18 02/28/18 02/28/18 00:40 02:05 06:20 WBC RBC Hgb Hct MCV MCH MCHC RDW Plt Count MPV Gran % Lymph % (Auto) Pitt % (Auto) Eos % (Auto) Baso % (Auto) Gran # Lymph # (Auto) Pitt # (Auto) Eos # (Auto) Baso # (Auto) ESR PT INR APTT D-Dimer, Quantitative Sodium 141 Potassium 4.2 Chloride 106 Carbon Dioxide 28 Anion Gap 11 BUN 18 Creatinine 0.8 Est GFR ( Amer) > 60 Est GFR (Non-Af Amer) > 60 Random Glucose 135 H Hemoglobin A1c Uric Acid Calcium 8.9 Phosphorus 2.7 Magnesium 2.2 Total Bilirubin 0.2 Direct Bilirubin 0.1 AST 18 ALT 12 Alkaline Phosphatase 84 Lactate Dehydrogenase Total Creatine Kinase 33 L 25 L Troponin I < 0.01 0.02 D NT-Pro-B Natriuret Pep Total Protein 7.4 Albumin 3.7 Globulin 3.7 Albumin/Globulin Ratio 1.0 L Triglycerides 61 Cholesterol 236 H LDL Cholesterol Direct 140 H HDL Cholesterol 49 25-OH Vitamin D Total Free T4 Thyroxine (T4) TSH 3rd Generation Urine Color Urine Appearance Urine pH Ur Specific [place] Urine Protein Urine Glucose (UA) Urine Ketones Urine Blood Urine Nitrate Urine Bilirubin Urine Urobilinogen Ur Leukocyte Esterase Urine HCG, Qual Negative Urine Opiates Screen Urine Methadone Screen Ur Barbiturates Screen Ur Phencyclidine Scrn Ur Amphetamines Screen U Benzodiazepines Scrn U Oth Cocaine Metabols U Cannabinoids Screen 02/28/18 02/28/18 02/28/18 06:20 06:20 06:20 WBC 9.2 D RBC 4.32 Hgb 10.8 L Hct 36.3 MCV 84.0 MCH 25.0 MCHC 29.8 L RDW 16.1 H Plt Count 242 MPV 10.1 Gran % 88.9 H Lymph % (Auto) 8.3 L Pitt % (Auto) 2.8 Eos % (Auto) 0.0 L Baso % (Auto) 0.0 Gran # 8.21 H Lymph # (Auto) 0.8 L Pitt # (Auto) 0.3 Eos # (Auto) 0.0 Baso # (Auto) 0.00 ESR PT INR APTT D-Dimer, Quantitative Sodium Potassium Chloride Carbon Dioxide Anion Gap BUN Creatinine Est GFR ( Amer) Est GFR (Non-Af Amer) Random Glucose Hemoglobin A1c 6.1 Uric Acid Calcium Phosphorus Magnesium Total Bilirubin Direct Bilirubin AST ALT Alkaline Phosphatase Lactate Dehydrogenase Total Creatine Kinase Troponin I NT-Pro-B Natriuret Pep Total Protein Albumin Globulin Albumin/Globulin Ratio Triglycerides Cholesterol LDL Cholesterol Direct HDL Cholesterol 25-OH Vitamin D Total 31.8 Free T4 Thyroxine (T4) TSH 3rd Generation Urine Color Urine Appearance Urine pH Ur Specific [place] Urine Protein Urine Glucose (UA) Urine Ketones Urine Blood Urine Nitrate Urine Bilirubin Urine Urobilinogen Ur Leukocyte Esterase Urine HCG, Qual Urine Opiates Screen Urine Methadone Screen Ur Barbiturates Screen Ur Phencyclidine Scrn Ur Amphetamines Screen U Benzodiazepines Scrn U Oth Cocaine Metabols U Cannabinoids Screen 02/28/18 06:20 WBC RBC Hgb Hct MCV MCH MCHC RDW Plt Count MPV Gran % Lymph % (Auto) Pitt % (Auto) Eos % (Auto) Baso % (Auto) Gran # Lymph # (Auto) Pitt # (Auto) Eos # (Auto) Baso # (Auto) ESR PT 18.9 H INR 1.63 APTT 34.2 D-Dimer, Quantitative Sodium Potassium Chloride Carbon Dioxide Anion Gap BUN Creatinine Est GFR ( Amer) Est GFR (Non-Af Amer) Random Glucose Hemoglobin A1c Uric Acid Calcium Phosphorus Magnesium Total Bilirubin Direct Bilirubin AST ALT Alkaline Phosphatase Lactate Dehydrogenase Total Creatine Kinase Troponin I NT-Pro-B Natriuret Pep Total Protein Albumin Globulin Albumin/Globulin Ratio Triglycerides Cholesterol LDL Cholesterol Direct HDL Cholesterol 25-OH Vitamin D Total Free T4 Thyroxine (T4) TSH 3rd Generation Urine Color Urine Appearance Urine pH Ur Specific [place] Urine Protein Urine Glucose (UA) Urine Ketones Urine Blood Urine Nitrate Urine Bilirubin Urine Urobilinogen Ur Leukocyte Esterase Urine HCG, Qual Urine Opiates Screen Urine Methadone Screen Ur Barbiturates Screen Ur Phencyclidine Scrn Ur Amphetamines Screen U Benzodiazepines Scrn U Oth Cocaine Metabols U Cannabinoids Screen Assessment & Plan - Assessment and Plan (Free Text) Plan: Mrs Karan is a 52 year old female with a PMHx of CHF 2/2 non-ischemic cardiomyopathy s/p AICD and on home milrinone, recent [place] [address] Kahn, endocarditis, on heart transplant list [facility], patent foramen ovale, ASD, on coumadin, SLE, CVA x2 w/ residual right-sided weakness, non-malignant breast calcifications B/L, Pulmonary embolism, Anxiety, depression, asthma & R breast cellulitis who presents to the ER for 1 day of shortness of breath: Acute on Chronic Systolic CHF -2/2 to non-ischemic cardiomyopathy s/p AICD; EF 13%; on home milrinone and is working with the heart transplant program at [facility] -Consult distribution spec, Dr Alvarez -probnp [id number] on admission -serial troponins negative x3 -Aspirin 81mg po qd -Lasix 40mg ivp bid -Metoprolol Succinate XL 25mg po qpm -Continue home milrinone drip for ionotropic need -Hold home amiodarone 200mg po qd Shortness of breath -2/2 to acute on chronic CHF -see plan above -Underlying asthma likely a contributing component -levalbuterol 0.63mg IH Q6H Thyromegaly -TSH 0.19, normal T4 -Thyroid Ultrasound: * Tiny complex right mid pole lesion measures maximally 4 mm. Two cystic foci within the left thyroid lobe and isthmus measuring 3 mm in maximum dimension. Heterogeneous parenchyma. * SLE -ESR 65 on admission -Hydrocortisone 40mg po qd Hx of PE -Warfarin 2mg po qd -Monitor INR Lumbar Disc Disease -Self reported -Order for CT lumbar spine and CT abd/pelvis w/ contrast due to worsening lumbar back pain with radiation into the legs bilaterally -Percocet 1 tab po bid prn HLD -Cholesterol 236 and LDL 140 -Atorvastatin 80mg po din Low Vitamin D -Drisdol 50,000IU 1 cap po q7d GERD -Pepcid 20mg po qd PPX -Pepcid 20mg po qd -Folic Acid 1mg po qd -Protonix 40mg po qd -Potassium 20meq po qd -OT/PT -TCU eval
--- NOTE | 2018-02-28 16:16 | CARD ---
APPROVED REPORT Date of service: 02/28/2018 EKG Measurement Heart [id number] <Conclusion> Normal sinus rhythm Possible Left atrial enlargement PRWP Left axis deviation Nonspecific T wave abnormality Prolonged QT
--- NOTE | 2018-02-28 16:22 | CT ---
Date of service: 02/28/2018 PROCEDURE: CT Abdomen and Pelvis with contrast HISTORY: worsening back pain COMPARISON: CT abdomen and pelvis without contrast performed 04/12/17 TECHNIQUE: Contrast dose: 100 mL Omnipaque 350 Radiation dose: Total exam DLP = 1028.57 mGy-cm. This CT exam was performed using one or more of the following dose reduction techniques: Automated exposure control, adjustment of the mA and/or kV according to patient size, and/or use of iterative reconstruction technique. FINDINGS: Examination limited by motion and streak artifact. LOWER THORAX: Mild bibasilar atelectasis. No visible pleural effusion or pneumothorax. LIVER: Hepatomegaly. GALLBLADDER AND BILE DUCTS: Unremarkable. PANCREAS: Unremarkable. SPLEEN: Unremarkable. ADRENALS: Unremarkable. KIDNEYS AND URETERS: Lobulated renal contours and evidence of scarring. The kidneys enhance symmetrically. No hydronephrosis or obstructing calculus identified. VASCULATURE: Atherosclerotic calcifications of the aorta and branches. No aortic aneurysm. BOWEL: Stomach is nondistended. Lack of oral contrast limits evaluation for bowel pathology. Bowel loops appear within normal limits of caliber without evidence of obstruction. Moderate constipation. APPENDIX: The appendix appears within normal limits of caliber. No secondary signs of acute appendicitis. PERITONEUM: No significant free fluid. No definite free air. LYMPH NODES: No bulky adenopathy identified. BLADDER: Unremarkable. REPRODUCTIVE: Evidence of large calcified fibroid arising from the right uterine fundus. BONES: Degenerative changes. OTHER FINDINGS: Streak artifact from radiopaque device implanted in the patient's left chest wall. IMPRESSION: Hepatomegaly. Lobulated renal contours with evidence of scarring. Moderate constipation. Calcified uterine fibroid. Additional findings as above.
--- NOTE | 2018-02-28 16:37 | CT ---
Date of service: 02/28/18 CT lumbar spine without IV contrast Indication: Worsening back pain Comparison: CT lumbar spine performed without contrast 02/18/17 Technique: Noncontrast axial images of the lumbar spine were provided. Sagittal and coronal reformatted images were generated and reviewed. This CT exam was performed using 1 or more of the following dose reduction techniques: Automated exposure control, adjustment of the MAA and/or kV according to patient size, and/or use of iterative reconstruction technique. Total exam DLP: 1049.52 MGy-cm Findings: Evidence of moderate to severe posterior disc bulge/protrusion at L4-L5. Vertebral body heights appear within normal limits. Alignment appears satisfactory. No acute fracture or subluxation identified. Paraspinal soft tissues appear unremarkable. Please refer to CT of the abdomen and pelvis with IV contrast performed 02/28/18 for detailed discussion of intra-abdominal and intrapelvic contents. Impression: Evidence of moderate to severe posterior disc bulge/protrusion at L4-L5. MRI of the lumbar spine without IV contrast may be considered for further evaluation if indicated.
[2018-02-28] MEDS ORDERED: Metoprolol Succinate 25 mg XL Tab PO SCH (18:00)
[2018-02-28] MEDS ORDERED: Magnesium Citrate Oral SOL (300 ml) PO ONE (19:11)
[2018-02-28] MEDS: Lidocaine 5% Patch TD SCH (21:19)
--- NOTE | 2018-03-01 00:08 | PN ---
DATE: 02/28/2018 SUBJECTIVE: The patient was seen in the morning hours. The patient was still in the holding area of the emergency room in bed #17. The patient is lying in the bed. The patient states that her breathing is better but complains of back pain and right-sided lower back pain. Overnight nurse's notes were reviewed. The patient was found to be alert, awake, oriented x3. The patient is to be continued on IV Primacor drip. PHYSICAL EXAMINATION: VITAL SIGNS: T-max 98.4. Telemetry shows sinus rhythm; heart rate 76, 83, 88; blood pressure in the last 12 to 24 hours 119/96, 131/72, 121/68 134/80, 130/89; respiration 20; O2 sat was 99%-100%. Intake and output not noted. HEENT: Head: Normocephalic, atraumatic. HEENT examination shows pink conjunctivae. Anicteric sclerae. No oropharyngeal lesion. No neck rigidity. CHEST: Examination positive left upper chest defibrillator. Positive left lateral chest defibrillator. CARDIOVASCULAR: S1, S2, regular rhythm. Positive systolic murmur at left sternal border, left second intercostal space, right second intercostal space. ABDOMEN: Soft. Positive bowel sounds. Questionable lumbar spine tenderness noted. No costovertebral angle tenderness noted. GENITALIA: Female. Rectal examination is deferred. EXTREMITIES: Shows significant decrease of the swelling and edema of the lower extremity. MUSCULOSKELETAL: Examination shows a body mass index of greater than 33. NEUROLOGIC: Examination without any gross deficit. Cranial nerves II-XII intact. The patient is able to move upper and lower extremities without assistance. DIAGNOSTICS: From 02/28, hemoglobin/hematocrit 10.8/36.3, platelet 242, granulocytes 89. PT/PTT 18.9/34.2. Sodium 141; potassium 4.2; chloride 106; CO2 28; anion gap 11; BUN 18; creatinine 0.8; GFR greater than 60; glucose 135; hemoglobin A1c 6.1, 6.2; uric acid 7.5. LFTs are normal. Troponin, CPK negative. Cholesterol 254, 236; LDL 140, 149; HDL 49. Vitamin D 25-hydroxy is 30, 31.8. TSH is low at 0.19. Urine , urinalysis negative. Urine drug screen positive for opiates. The patient had a thyroid ultrasound, lumbar spine CT done for the back pain and abdominal CAT scan was done for evaluation of the abdominal pain and back pain which was reviewed and results explained to the patient. EKG was reviewed which is done, which shows sinus rhythm, left axis deviation. The patient seen by gripper machine operator. IMPRESSION: 1. Symptomatic acute systolic congestive heart failure with acute exacerbation of systolic congestive heart failure. 2. End-stage dilated cardiomyopathy with ejection fraction of less than 15%, status post automatic implantable cardioverter-defibrillator implant and biventricular pacemaker implant. 3. History of systemic lupus erythematosus. 4. History of hypercoagulable state. 5. Heterogeneous thyroid gland, heterogeneous echo texture. 6. Complex right mid thyroid pole 4 x 4 x 2 mm lesion. 7. Left thyroid lobe cystic lesion. 8. Tiny complex right mid pole 4 mm lesion and cystic foci of the left thyroid lobe and isthmus 3 mm lesion with heterogeneous thyroid parenchyma. 9. Lumbar spine posterior disc bulge protrusion [id number]. 10. [id number] posterior disc bulge and protrusion, L4-L5. 11. Deconditioning. 12. Gait dysfunction. 13. Bibasilar atelectasis. 14. Hepatomegaly. 15. Moderate constipation, fecal stasis. 16. Calcified uterine fibroid of the right uterine fundus. 17. Degenerative joint disease. 18. Lobulated renal contour with evidence of scarring. 19. Left axis deviation. 20. Bibasilar atelectasis with linear atelectasis and scarring of the left upper lobe, left lingular region, right upper lobe, right lung base. 21. 3.74 cm ascending thoracic aorta and 2.4 cm descending thoracic aorta. 22. Nonspecific mediastinal lymphadenopathy. 23. Thyromegaly with heterogeneous appearance. 24. Splenic calcification suggestive of granulomatous disease. 25. Anxiety disorder. 26. Hypovitaminosis D. 27. Hyperlipidemia with elevated LDL. 28. Hypokalemia. 29. Intravenous milrinone-dependent end-stage dilated cardiomyopathy. PLAN: At this time, the patient is awaiting for a telemetry bed. The patient has been ordered serial labs. The patient has been ordered Cardiology consultation. The recommendations noted. CURRENT MEDICATIONS: The patient is given a dose of magnesium citrate one bottle p.o. for constipation and fecal stasis, Colace 100 three times a day, amiodarone 200 mg daily, hydrocortisone 40 mg daily, Coumadin 2 mg daily, Drisdol 50,000 units weekly, Ecotrin 81 mg daily, Flonase nasal spray, folic acid 1 mg daily, K-Dur 20 mEq daily with monitoring of electrolytes. The patient's Lasix is increased to Lasix 40 IV twice a day, Lipitor 80 mg daily, MiraLax 17 g twice a day, Pepcid 20 mg daily, Percocet 10/325 1 tablet b.i.d. p.r.n. The patient is on milrinone drip at 0.5 mcg/kg/minute. The patient is on Protonix 40 mg daily, Toprol XL 25 mg daily. The patient is given Toradol 15 mg IV every 6 hours p.r.n., total 8 doses, Tylenol p.r.n., Xanax 0.25 four times a day p.r.n., Xopenex nebulizer 0.63 mg every 6 hours, Zofran 4 mg IV every 4 p.r.n. The patient is on incentive spirometry, oxygen supplement. Repeat EKG, heart-healthy diet, out of bed to chair, BAKARI stockings, SCDs, physical therapy, occupational therapy ordered. In addition, the patient is ordered Lidoderm 5% patch to the affected area of the pain daily. The patient has been advised and encouraged to be out of bed to chair as much as possible. The patient updated about her condition, diagnosis, test results, recommendation by all the physicians involved in the care of the patient, was updated to the patient at length and all questions concerned answered. Dictated and electronically signed, not read. Ashok Freeman MD
[2018-03-01] MEDS: Levalbuterol 0.63 MG/3 ML Inhal Soln UD IH SCH ×3 (02:20→13:56)
[2018-03-01] MEDS: Milrinone 20mg/100ml D5W 100 ML IV SCH ×2 (03:48→12:20)
[2018-03-01] MEDS: Pantoprazole 40 mg EC Tab PO SCH (05:17)
[2018-03-01 06:28] VITALS: O2SAT 99
[2018-03-01 06:38] LABS: BASO # 0.01 K/mm3 (0.0-2.0); BASO % 0.1 % (0.0-3.0); GRAN # 8.68 (1.4-6.5); GRAN % 80.1 % (50.0-68.0); LYMPH # 1.3 (1.2-3.4); LYMPH % 12.1 % (22.0-35.0); MEAN CELL VOLUME 84.3 fl (80.0-105.0); MEAN CORPUSCULAR HEMOGLOBIN 24.5 pg (25.0-35.0); MEAN CORPUSCULAR HGB CONC 29.1 g/dl (31.0-37.0); MEAN PLATELET VOLUME 10.5 fl (7.0-11.0); MONO # 0.8 (0.1-0.6); MONO % 7.7 % (1.0-6.0); RBC 4.08 10^6/uL (3.5-6.1); RED CELL DISTRIBUTION WIDTH 16.3 % (11.5-14.5); WHITE BLOOD COUNT 10.8 10^3/ul (4.5-11.0)
[2018-03-01 06:42] LABS: ALB/GLOB RATIO 0.9 (1.1-1.8); ALBUMIN 3.1 g/dL (3.0-4.8); ALT/SGPT 20 U/L (7-56); AST/SGOT 16 U/L (14-36); BLOOD UREA NITROGEN 24 mg/dL (7-21); CALCIUM 8.2 mg/dL (8.4-10.5); GFR NON-AFRICAN AMERICAN 53
[2018-03-01] MEDS: Oxycodone/Acetaminophen 10/325 mg Tab PO PRN (08:38)
--- NOTE | 2018-03-01 08:58 | CARD ---
APPROVED REPORT Date of service: 03/01/2018 EKG Measurement Heart [id number] <Conclusion> Normal sinus rhythm with 1st degree AVB Possible Left atrial enlargement LAD STTW changes c/w ischemia Prolonged QTc
--- NOTE | 2018-03-01 09:52 | CP.PCM.PN ---
Subjective - Date & Time of Evaluation Date of Evaluation: 03/01/18 Time of Evaluation: 09:48 - Subjective Subjective: PGY-2 medicine progress note for Dr Freeman No acute events noted overnight. Patient was sitting comfortably in bed with family member in chair. Stated her breathing had improved. She's been urinating without problems. Milrinone drip was running. Conveyed results of lumbar CT to her - she inquired about treatment options. Stated the toradol was helping in addition to the percocet. Did not offer any other complaints. Objective - Vital Signs/Intake and Output Vital Signs (last 24 hours): Temp Pulse Resp BP Pulse Ox 98.2 F 69 20 128/70 99 03/01/18 06:00 03/01/18 06:00 03/01/18 06:00 03/01/18 06:00 03/01/18 06:00 Intake and Output: 03/01/18 03/01/18 06:59 18:59 Intake Total 1074 Balance 1074 - Medications Medications: Current Medications Acetaminophen (Tylenol 325mg Tab) 650 mg PO Q6 PRN PRN Reason: TEMP>=99.5F Last Admin: 03/01/18 02:57 Dose: 650 mg Acetaminophen (Tylenol 650 Mg Supp) 650 mg RC Q6H PRN PRN Reason: TEMP>=99.5F Acetaminophen (Tylenol 650 Mg Supp) 650 mg RC Q6H PRN PRN Reason: Headache Acetaminophen (Tylenol 325mg Tab) 650 mg PO Q6H PRN PRN Reason: Headache Alprazolam (Xanax) 0.25 mg PO QID PRN; Protocol PRN Reason: Anxiety Stop: 03/06/18 19:44 Last Admin: 02/28/18 10:04 Dose: 0.25 mg Amiodarone HCl (Cordarone) 200 mg PO DAILY [facility] Last Admin: 02/28/18 09:36 Dose: 200 mg Aspirin (Ecotrin) 81 mg PO DAILY [facility] Last Admin: 02/28/18 09:51 Dose: Not Given Atorvastatin Calcium (Lipitor) 80 mg PO DIN [facility] Last Admin: 02/28/18 18:43 Dose: Not Given Docusate Sodium (Colace) 100 mg PO TID [facility] Last Admin: 02/28/18 18:37 Dose: Not Given Ergocalciferol (Drisdol 50,000 Intl Units Cap) 1 cap PO Q7D [facility] Last Admin: 02/28/18 12:15 Dose: 1 cap Famotidine (Pepcid) 20 mg PO DAILY [facility] Last Admin: 02/28/18 09:40 Dose: 20 mg Fluticasone Propionate (Flonase) 1 actuation NS DAILY [facility] Last Admin: 02/28/18 13:22 Dose: 1 applic Folic Acid (Folic Acid) 1 mg PO DAILY [facility] Last Admin: 02/28/18 09:37 Dose: 1 mg Furosemide (Lasix) 40 mg PO BID [facility] Hydrocortisone (Cortef) 40 mg PO DAILY [facility] Last Admin: 02/28/18 12:15 Dose: 40 mg Milrinone Lactate/Dextrose (Primacor 20mg/100ml D5w) 100 mls @ 12.791 mls/hr IV .Q7H50M [facility]; Protocol Last Admin: 03/01/18 03:48 Dose: 12.791 mls/hr Ketorolac Tromethamine (Toradol) 15 mg IVP Q6H PRN PRN Reason: Pain, severe (8-10) Last Admin: 02/28/18 18:35 Dose: 15 mg Levalbuterol HCl (Xopenex) 0.63 mg IH [id number] [facility] Last Admin: 03/01/18 07:13 Dose: 0.63 mg Lidocaine (Lidoderm) 1 ea TD DAILY [facility] Last Admin: 02/28/18 21:19 Dose: 1 ea Metoprolol Succinate (Toprol Xl) 25 mg PO QPM [facility] Last Admin: 02/28/18 18:38 Dose: 25 mg Ondansetron HCl (Zofran Inj) 4 mg IVP Q4H PRN PRN Reason: Nausea/Vomiting Oxycodone/Acetaminophen (Percocet 10/325 Mg Tab) 1 tab PO BID PRN PRN Reason: Pain, severe (8-10) Last Admin: 03/01/18 08:38 Dose: 1 tab Pantoprazole Sodium (Protonix Ec Tab) 40 mg PO 0600 [facility] Last Admin: 03/01/18 05:17 Dose: 40 mg Polyethylene Glycol (Miralax) 17 gm PO BID [facility] Last Admin: 02/28/18 18:37 Dose: Not Given Potassium Chloride (K-Dur 20 Meq Er Tab) 20 meq PO BID [facility] Warfarin Sodium (Coumadin) 2 mg PO DAILY [facility]; Protocol Last Admin: 02/28/18 12:15 Dose: 2 mg - Labs Labs: 03/01/18 06:00 03/01/18 06:00 PT 18.9 SECONDS (9.4-12.5) H 02/28/18 06:20 INR 1.63 02/28/18 06:20 APTT 34.2 Seconds (25.1-36.5) 02/28/18 06:20 - Additional Findings Additional findings: - Constitutional Appears: Well, No Acute Distress - Head Exam Head Exam: ATRAUMATIC, NORMAL INSPECTION - Eye Exam Eye Exam: EOMI, Normal appearance, PERRL - ENT Exam ENT Exam: Mucous Membranes Moist - Neck Exam Neck exam: Positive for: Normal Inspection - Respiratory Exam Respiratory Exam: without rales or wheezing today - Cardiovascular Exam Cardiovascular Exam: REGULAR RHYTHM, +S1, +S2, +S4 - GI/Abdominal Exam GI & Abdominal Exam: Normal Bowel Sounds. absent: Tenderness - Extremities Exam Extremities exam: Positive for: normal inspection, pedal edema. Negative for: calf tenderness Additional comments: +1 pedal edema bilaterally; Wearing compression stockings - Back Exam Back exam: muscle spasm, NORMAL INSPECTION, vertebral tenderness. absent: CVA tenderness (L), CVA tenderness (R), rash noted - Neurological Exam Neurological exam: Alert, CN II-XII Intact, Oriented x3 - Psychiatric Exam Psychiatric exam: Normal Affect - Skin Skin Exam: Intact, Normal Color Assessment and Plan - Assessment and Plan (Free Text) Plan: Mrs Russo is a 52 year old female with a PMHx of CHF 2/2 non-ischemic cardiomyopathy s/p AICD and on home milrinone, recent generator [place] [address] 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 * Continue home milrinone and add lasix 40mg iv bid -probnp 3110 on admission -serial troponins negative x3 -Aspirin 81mg po qd -Lasix 40mg ivp bid -Metoprolol Succinate XL 25mg po qpm -Continue home milrinone drip for ionotropic need -Warfarin 2mg po qd for high risk of LV thrombus due to severely low EF -Hold home amiodarone 200mg po qd Shortness of breath -2/2 to acute on chronic CHF -see plan above -Underlying asthma likely a contributing component -levalbuterol 0.63mg IH Q6H -D-dimer was mildly elevated - chest CTA did not show PE Thyromegaly -TSH 0.19, normal T4 -Thyroid Ultrasound: * Tiny complex right mid pole lesion measures maximally 4 mm. Two cystic foci within the left thyroid lobe and isthmus measuring 3 mm in maximum dimension. Heterogeneous parenchyma. SLE -ESR 65 on admission -Hydrocortisone 40mg po qd Hx of PE -Warfarin 2mg po qd -Monitor INR Lumbar Disc Disease -Lumbar CT: * Evidence of moderate to severe posterior disc bulge/protrusion at L4-L5. -Percocet 1 tab po bid prn -Toradol 15mg ivp q6h prn for severe pain Calcified Uterine Fibroids -CT abd/pelvis w/ iv contrast: * Hepatomegaly. Lobulated renal contours with evidence of scarring. Moderate constipation. Calcified uterine fibroid. HLD -Cholesterol 236 and LDL 140 -Atorvastatin 80mg po din Low Vitamin D -Drisdol 50,000IU 1 cap po q7d GERD -Pepcid 20mg po qd PPX -Pepcid 20mg po qd -Folic Acid 1mg po qd -Protonix 40mg po qd -Potassium 20meq po qd -OT/PT -TCU eval
[2018-03-01] MEDS ORDERED: Potassium Chloride 20 mEq ER Tab PO SCH (10:00)
[2018-03-01] MEDS: POLYETHYLENE GLYCOL 3350 17 GM/Dose PACKET PO SCH (10:21)
[2018-03-01] MEDS: Lidocaine 5% Patch TD SCH (10:22)
--- NOTE | 2018-03-01 10:40 | PN ---
DATE: 03/01/2018 CARDIOLOGY FOLLOWUP SUBJECTIVE: The patient's breathing is much improved. PHYSICAL EXAMINATION VITAL SIGNS: Blood pressure is 128/70, the heart rate is in the 70s. NECK: Negative JVD. LUNGS: Without rales. HEART: Reveals S1 and S2. EXTREMITIES: Decreasing edema. LABORATORY DATA: BUN and creatinine are unremarkable. The glucose is 171, hemoglobin is 10. IMPRESSION: 1. Acute systolic congestive heart failure. 2. End-stage dilated cardiomyopathy. 3. Pedal edema. 4. Diabetes mellitus. 5. History of lupus erythematosus. PLAN: Given these findings, the patient can be discharged on home milrinone in which she came in with. She needs to follow up with a heart transplant program at [facility] which she is acutely aware and wants to go back to it JASE. Rm Alvarez MD
[2018-03-01] MEDS: Fluticasone Nasal 50 mcg/Spray NS SCH (12:00)
[2018-03-01 12:05] VITALS: RESP 19; TEMP 97.1
[2018-03-01 13:46] VITALS: BP 123/85; PULSE 88
--- NOTE | 2018-03-01 16:23 | DS ---
FINAL PROGRESS NOTE AND DISCHARGE SUMMARY The patient was discharged after the patient cleared for discharge by Cardiology. The patient is seen lying in the bed in room 271, bed 2. The patient is complaining of back pain. The patient was explained about the results of the CAT scan, which she acknowledged and understood. Overnight nurse's notes were reviewed. PHYSICAL EXAMINATION: VITAL SIGNS: T-max 98.2. Telemetry shows sinus rhythm; heart rate 69, 82, 88; blood pressure 128/70, 123/85, 129/96, 123/85; respirations 20; O2 sat 99%. HEENT: Head: Normocephalic, atraumatic. Pinkish conjunctivae. Anicteric sclerae. No oropharyngeal lesion. NECK: No neck rigidity. CHEST: Kyphosis. Positive left upper chest defibrillator and left lateral chest AICD noted. LUNGS: Show no rales, crackles, or wheezing. CARDIOVASCULAR: S1 and S2, regular rhythm. Positive systolic murmur in the left sternal border, right second intercostal space, left second intercostal space. ABDOMEN: Soft. Positive bowel sound. GENITALIA: Female. RECTAL: Deferred. EXTREMITIES: Show no pitting edema, no calf tenderness, no Homans sign. NEUROLOGIC: The patient is alert, awake, and oriented x3. The patient is able to move upper and lower extremities without assistance. Gait examination is not tested. VASCULAR: Palpable pulses. MUSCULOSKELETAL: Shows a body mass index of 33.3. DIAGNOSTICS: 03/01/2018: Hemoglobin and hematocrit 10 and 34.4, platelets 170. Granulocytes, 80% segs. PT/PTT was noticed. Chemistry: BUN 24. Glucose 171. Hemoglobin A1c is 6.1. Calcium 8.2, phosphorus 3.7, magnesium 2.3. LFTs are normal. The patient was explained about the results of the ultrasound abdominal and lumbar spine CT. The patient's EKG from 03/01/2018, was reviewed and also explained to the patient. FINAL IMPRESSION, PLAN, AND DISCHARGE DIAGNOSES: 1. Acute systolic IV milrinone-dependent congestive heart failure and end-stage dilated cardiomyopathy. 2. Acute exacerbation of systolic congestive heart failure with elevated BNP. 3. Hypertension. 4. Normocytic anemia. 5. Granulocytosis. 6. Elevated erythrocyte sedimentation rate. 7. Elevated D-dimer of 254. 8. Hyperglycemia. 9. Prediabetes with hemoglobin A1c of 6.2. 10. Hypercholesterolemia with elevated LDL. 11. Bibasilar atelectasis. 12. Hepatomegaly. 13. Lobulated renal contours with scarring. 14. Fecal stasis and constipation. 15. Calcified uterine fibroid of the right uterine fundus. 16. Degenerative joint disease. 17. [id number] posterior disk bulging protrusion at L4-L5. 18. Left axis deviation. At this time, the patient was cleared for discharge by Cardiology. The patient was advised to follow up with Dr. Rubalcava and Dr. Ilia Maxwell in the [facility], which was explained to the patient by me and Dr. Rm Alvarez. DISCHARGE MEDICATIONS: The patient is to resume her Ventolin HFA, Xanax 0.25 four times daily p.r.n., Cordarone 200 mg daily, Ecotrin 81 mg daily, Lipitor 40 mg daily, Drisdol, vitamin D3 of 1000 international units daily, Pepcid 20 mg daily, Flonase nasal spray, folic acid 1 mg daily, Lasix increased to 40 mg twice a day. The patient is on hydrocortisone 40 mg daily for her adrenal insufficiency, which she needs to continue. Lidoderm 5% patch to the affected area of pain, Zestril 2.5 mg daily, Toprol XL 25 mg daily, IV milrinone drip to be continued at 0.5 mcg/kg/min. The patient is to be continued on . The patient was given Percocet 10/325 one tablet twice a day 10 tablets for 5 days, K-Dur 20 mEq twice a day, and the patient to resume Coumadin 2 mg daily. CURRENT MEDICATIONS: On 03/01/2018, which the patient receiving in the emergency room are Colace 100 three times a day, amiodarone 200 mg daily, hydrocortisone 40 mg daily, Coumadin 2 mg daily, Drisdol 50,000 weekly, Ecotrin 81 mg daily, Flonase nasal spray, folic acid 1 mg daily, K-Dur 20 mEq twice a day, Lasix 40 mg p.o. twice a day, Lidoderm 5% patch to the affected area twice a day, Lipitor 80 mg daily, MiraLax 17 g twice a day, Pepcid 20 mg daily, Percocet 10/325 one tablet b.i.d. p.r.n., Primacor drip at 0.5 mcg/kg/min, Protonix 40 mg daily, Toprol XL 25 mg daily, Toradol 15 mg IV every 6 hours p.r.n. Tylenol 650 every 6 hours p.r.n., Xanax 0.25 four times daily p.r.n., Xopenex nebulizer 0.63 mg every 6 hours, Zofran 4 mg IV every 4 hours p.r.n. The patient is cleared for discharge by Cardiology. The patient is discharged home. The patient is to follow up with Dr. Maxwell and Dr. Rubalcava at [facility]. During this hospitalization, the patient was extensively explained about the details of her medical condition, diagnoses, diagnostic test results, and recommendation by Cardiology on a daily basis and all questions concerned answered. The patient was advised outpatient followup with her PMD for evaluation of back pain and also GI evaluation for constipation. Time spent in the discharge process 45 minutes. Dictated and electronically signed, not read. Ashok Freeman MD
== END 2018-03-01 17:55 | disposition home or self-care (01) | DRG 292 ==
LOC: ED 11:49 → ERH 19:31 → 2RSO 02-28 16:02
PROVIDERS: ADMIT Internal Medicine; ATTEND Internal Medicine
PROC: 3E0F7GC Introduction of Other Therapeutic Substance into Respiratory Tract, Via Natural or Artificial Opening (ICD-10-PCS; principal; 2018-02-28)
DX: I11.0 Hypertensive heart disease with heart failure (principal); I69.351 Hemiplegia and hemiparesis following cerebral infarction affecting right dominant side; D68.61 Antiphospholipid syndrome; I50.23 Acute on chronic systolic (congestive) heart failure; I42.0 Dilated cardiomyopathy; M32.9 Systemic lupus erythematosus, unspecified; E87.6 Hypokalemia; R73.03 Prediabetes; E78.5 Hyperlipidemia, unspecified; K21.9 Gastro-esophageal reflux disease without esophagitis; F41.9 Anxiety disorder, unspecified; M51.86 Other intervertebral disc disorders, lumbar region; E78.00 Pure hypercholesterolemia, unspecified; E55.9 Vitamin D deficiency, unspecified; D64.9 Anemia, unspecified; J45.909 Unspecified asthma, uncomplicated; Z86.711 Personal history of pulmonary embolism; Z79.01 Long term (current) use of anticoagulants; Z95.810 Presence of automatic (implantable) cardiac defibrillator

== ENCOUNTER 2018-03-11 01:03 | Inpatient (IN) | payer MEDICAID, MEDICARE ==
[2018-03-11 01:04] VITALS: PULSE 98
[2018-03-11 01:08] VITALS: BMI 32.2
--- NOTE | 2018-03-11 01:48 | ED PDOC ---
Arrival/HPI - General Chief Complaint: Flu-like Symptoms Time Seen by Provider: 03/11/18 01:29 Historian: Patient - History of Present Illness Narrative History of Present Illness (Text): 03/11/18 01:45 52 year old female, whose past medical history includes Lupus on chronic steriods, CHF 2/2 non-ischemic cardiomyopathy EF 15% s/p AICD, recent generator change [place] [address] Kahn, endocarditis, on heart transplant list [facility], patent foramen ovale, ASD, on Coumadin, SLE, CVA x2 w/ residual right-sided weakness, non-malignant breast calcifications B/L, Pulmonary embolism, Anxiety, depression & R breast cellulites, presents to the emergency department complaining of flu- like symptoms, body aches, cough, sore throat, and runny nose that began after she was discharged from the hospital 12 days ago. Patient states she took Ty lenol Cold with no relief. Patient denies any fevers, chills, chest pain, shortness of breath, abdominal pain, nausea, vomiting, diarrhea, back pain, neck pain, urinary symptoms, headache, dizziness, or any other complaint. PMD: Dr. Maxwell Parts Counter Specialist: Dr Kahn Time/Duration: Other (12 days) Symptom Onset: Gradual Symptom Course: Unchanged Activities at Onset: Light Context: Home Past Medical History - Provider Review Nursing Documentation Reviewed: Yes - Past History Past History: Non-Contributing - Infectious Disease Hx of Infectious Diseases: None - Tetanus Immunization Tetanus Immunization: Unknown - Past Medical History Past Medical History: Non-Contributing - Cardiac Hx Cardiac Disorders: Yes Hx Cardiac Arrhythmia: Yes Hx Pacemaker: Yes - Pulmonary Hx Respiratory Disorders: Yes Hx Asthma: Yes - Neurological Hx Neurological Disorder: Yes HX Cerebrovascular Accident: Yes - HEENT Hx HEENT Disorder: No - Renal Hx Renal Disorder: No - Endocrine/Metabolic Hx Endocrine Disorders: Yes Hx Systemic Lupus Erythematosus: Yes - Hematological/Oncological Hx Cancer: No - Integumentary Hx Dermatological Disorder: No - Musculoskeletal/Rheumatological Hx Musculoskeletal Disorders: Yes Hx Back Pain: Yes - Gastrointestinal Hx Gastrointestinal Disorders: No - Genitourinary/Gynecological Hx Genitourinary Disorders: No - Psychiatric Hx Psychophysiologic Disorder: Yes Hx Anxiety: Yes Hx Depression: Yes Hx Substance Use: No - Past Surgical History Past Surgical History: No Previous - Surgical History Hx Vascular Access Device: Yes Other/Comment: PACEMAKER/DEFIBRILLATOR - Anesthesia Hx Anesthesia: Yes - Suicidal Assessment Feels Threatened In Home Enviroment: No Family/Social History - Physician Review Nursing Documentation Reviewed: Yes Family/Social History: No Known Family HX Smoking Status: Former Smoker Hx Alcohol Use: No Hx Substance Use: No Hx Substance Use Treatment: No Allergies/Home Meds Allergies/Adverse Reactions: Allergies tramadol [From Ultram] Adverse Reaction (Unknown, Verified 02/27/18 12:03) NAUSEA Home Medications: Home Meds Medication Instructions Recorded Confirmed Cholecalciferol (Vitamin D3) 1 tab PO DAILY 03/09/17 03/11/18 [Vitamin D3] Lisinopril [Zestril] 2.5 mg PO DAILY 05/06/17 03/11/18 ALPRAZolam [Xanax] 0.25 mg PO QID PRN 08/12/17 03/11/18 Albuterol HFA [Ventolin HFA 90 2 puff NEB Q4 PRN 08/12/17 03/11/18 mcg/actuation (8 g)] Amiodarone [Cordarone] 200 mg PO DAILY 08/12/17 03/11/18 Famotidine [Pepcid] 20 mg PO BID 08/12/17 03/11/18 Folic Acid 1 mg PO DAILY 08/12/17 03/11/18 Metoprolol Succinate XL [Toprol XL] 12.5 mg PO QPM 08/12/17 03/11/18 Warfarin Sodium [Jantoven] 2 mg PO DAILY 09/04/17 03/11/18 Milrinone [Primacor 1mg/ml Inj 436 mg IV CONT 02/27/18 03/11/18 (10ml)] Bumetanide [Bumex] 1 mg PO BID 03/11/18 03/11/18 Hydrocortisone [Cortef] 30 mg PO HS 03/11/18 03/11/18 Hydrocortisone [Cortef] 40 mg PO DAILY 03/11/18 03/11/18 Levocetirizine Dihydrochloride 5 mg PO HS 03/11/18 03/11/18 [Allergy Relief] Oxycodone HCl/Acetaminophen 1 tab PO BID PRN 03/11/18 03/11/18 [Percocet 10-325 mg Tablet] Review of Systems - Physician Review All systems were reviewed & negative as marked: Yes - Review of Systems Constitutional: absent: Fevers, Other (Chills) ENT: Sore Throat, Rhinorrhea Respiratory: Cough. absent: SOB Cardiovascular: absent: Chest Pain Gastrointestinal: absent: Abdominal Pain, Diarrhea, Nausea, Vomiting Genitourinary Female: absent: Dysuria, Frequency, Hematuria Musculoskeletal: Other (body aches). absent: Back Pain, Neck Pain Neurological: absent: Headache, Dizziness Physical Exam Vital Signs Reviewed: Yes Vital Signs Temp Pulse Resp BP Pulse Ox 03/11/18 01:18 97.8 F 75 18 120/79 98 Temperature: Afebrile Blood Pressure: Normal Pulse: Regular Respiratory Rate: Normal Appearance: Positive for: Well-Appearing, Non-Toxic, Comfortable Pain Distress: None Mental Status: Positive for: Alert and Oriented X 3 - Systems Exam Head: Present: Atraumatic, Normocephalic Pupils: Present: PERRL Extroacular Muscles: Present: EOMI Conjunctiva: Present: Normal Mouth: Present: Moist Mucous Membranes Neck: Present: Normal Range of Motion Respiratory/Chest: Present: Clear to Auscultation, Good Air Exchange. No: Respiratory Distress, Accessory Muscle Use Cardiovascular: Present: Regular Rate and Rhythm, Normal S1, S2. No: Murmurs Abdomen: No: Tenderness, Distention, Peritoneal Signs Back: Present: Normal Inspection Upper Extremity: Present: Normal Inspection. No: Cyanosis, Edema Lower Extremity: Present: Normal Inspection. No: Edema Neurological: Present: GCS=15, CN II-XII Intact, Speech Normal Skin: Present: Warm, Dry, Normal Color. No: Rashes Psychiatric: Present: Alert, Oriented x 3, Normal Insight, Normal Concentration Medical Decision Making ED Course and Treatment: 03/11/18 01:55 Impression: 52 year old female presents complaining of flu-like symptoms body aches, sore throat, runny nose, and cough that began after she was discharged from the hospital 12 days ago. Plan: -- VBG -- Labs -- Chest X-ray -- Influenza Type A and B -- POC Urine Test -- Reassess and disposition Prior Visits: Notes and results from previous visits were reviewed. Patient was last seen in the emergency department on presents complaining of generalized bodyache and shortness of breath for the past week. Patient was admitted. Progress Notes: CXR Impression: As read by me, possible right infiltrate. 03/11/18 03:48 Elevated BNP, Mild increased Cr. Given on milrinone, Lupus on steroids, R infiltrate will recommend abx and obs. Case discussed with medical biller/coder and Dr. Cristopher Rader who is aware and agrees with the plan. Accepts patient into hospitalist service. 03/11/18 04:30 EKG shows NSR at 81 BPM no STEMI. Interpreted by me. - Lab Interpretations I have reviewed the lab results: Yes - RAD Interpretation Radiology Orders: 03/11/18 01:44 CHEST TWO VIEWS (PA/LAT) [RAD] Stat - EKG Interpretation Interpreted by ED Physician: Yes Type: 12 lead EKG - Scribe Statement The provider has reviewed the documentation as recorded by the Gladis Underwood Provider Scribe Attestation: All medical record entries made by the Scribe were at my direction and personall y dictated by me. I have reviewed the chart and agree that the record accurately reflects my personal performance of the history, physical exam, medical decision making, and the department course for this patient. I have also personally directed, reviewed, and agree with the discharge instructions and disposition. Disposition/Present on Arrival - Present on Arrival Any Indicators Present on Arrival: No History of DVT/PE: No History of Uncontrolled Diabetes: No Urinary Catheter: No History of Decub. Ulcer: No History Surgical Site Infection Following: None - Disposition Have Diagnosis and Disposition been Completed?: Yes Diagnosis: CHF (congestive heart failure), PNA (pneumonia) Disposition: HOSPITALIZED Disposition Time: 03:53 Patient Problems: Current Active Problems Problem Status Onset CHF (congestive heart failure) Acute Pneumonia Acute Condition: GOOD
[2018-03-11] MEDS ORDERED: Oxycodone/Acetaminophen 5/325 mg Tab PO STA (02:44)
[2018-03-11 02:56] LABS: BASO # 0.02 K/mm3 (0.0-2.0); BASO % 0.1 % (0.0-3.0); GRAN # 14.48 (1.4-6.5); GRAN % 84.2 % (50.0-68.0); HEMOGLOBIN 10.5 g/dL (12.0-16.0); LYMPH # 1.8 (1.2-3.4); LYMPH % 10.6 % (22.0-35.0); MEAN CELL VOLUME 82.8 fl (80.0-105.0); MEAN CORPUSCULAR HEMOGLOBIN 25.1 pg (25.0-35.0); MEAN CORPUSCULAR HGB CONC 30.3 g/dl (31.0-37.0); MEAN PLATELET VOLUME 10.6 fl (7.0-11.0); MONO # 0.9 (0.1-0.6); MONO % 5.1 % (1.0-6.0); RBC 4.18 10^6/uL (3.5-6.1); RED CELL DISTRIBUTION WIDTH 16.3 % (11.5-14.5); WHITE BLOOD COUNT 17.2 10^3/ul (4.5-11.0)
[2018-03-11 02:57] LABS: VENOUS BLOOD GAS BASE EXCESS 3.4 mmol/L (0.0-2.0); VENOUS BLOOD GAS PO2 57 mm/Hg (30-55); VENOUS BLOOD PH 7.42 (7.32-7.43)
[2018-03-11 03:44] LABS: ALB/GLOB RATIO 0.9 (1.1-1.8); ALBUMIN 3.6 g/dL (3.0-4.8); CALCIUM 8.5 mg/dL (8.4-10.5)
[2018-03-11] MEDS ORDERED: Piperacillin/Tazobact 3.375 gm 100 ML IVPB STA (03:46)
[2018-03-11] MEDS ORDERED: Vancomycin 1gm in NS 250ml 1 GM/250 ML BAG IVPB STA (03:49)
--- NOTE | 2018-03-11 04:05 | CP.PCM.HP ---
History of Present Illness - History of Present Illness History of Present Illness: Kyle Simon PGY1, History and Physical for Dr Yvette Rader Pt is a 52yo female, with a PMH of SLE, adrenal insufficiency on chronic steroi ds, CHF 2/2 non-ischemic cardiomyopathy EF 15% s/p AICD, recent generator [place] [address] Kahn, endocarditis, on heart transplant list [facility], PFO, ASD, on Warfarin, CVA x2 w/ residual right-sided weakness, non-malignant breast calcifications B/L, PE, anxiety, depression & R breast cellulites, who presents to the ED complaining of flu-like symptoms, weakness and body aches that began after she was discharged from the hospital 12 days ago. Patient states she took Tylenol Cold which did releive her symptoms very well. A 12 point ROS was obtained and added to the HPI where appropriate. PMH: SLE, adrenal insufficiency on chronic steroids, CHF 2/2 non-ischemic cardiomyopathy EF 15% s/p AICD, recent generator [place] [address] Kahn, endocarditis, on heart transplant list [facility], PFO, ASD, on Warfarin, CVA x2 w/ residual right-sided weakness, non-malignant breast calcifications B/L, PE, anxiety, depression & R breast cellulites PSH: Breast biopsies B/L, hematoma evacuation, C sec (1993), AICD, and BiV pacemaker SH: Tobacco- former smoker, 10 py, quit 5 yrs ago, denies alcohol, denies drugs FHx: Father- heart transplant. Mother- esophageal CA Allergies: NKDA Meds: See AUG PMD: Dr. Maxwell [place] Rafting Guide: Dr Kahn [employer] Room Operator: Sherri Endocrinology: Lisette Present on Admission - Present on Admission Any Indicators Present on Admission: No Review of Systems - Review of Systems Review of Systems: a 12 point ROS was obtained and added to the HPI where appropriate Past Patient History - Infectious Disease Hx of Infectious Diseases: None - Tetanus Immunizations Tetanus Immunization: Unknown - Past Medical History & Family History Past Medical History?: Yes - Past Social History Smoking Status: Former Smoker - CARDIAC Hx Cardiac Disorders: Yes Hx Cardia Arrhythmia: Yes Hx Pacemaker: Yes - PULMONARY Hx Respiratory Disorders: Yes Hx Asthma: Yes - NEUROLOGICAL Hx Neurological Disorder: Yes HX Cerebrovascular Accident: Yes - HEENT Hx HEENT Problems: No - RENAL Hx Chronic Kidney Disease: No - ENDOCRINE/METABOLIC Hx Endocrine Disorders: Yes Hx Systemic Lupus Erythematosus: Yes - HEMATOLOGICAL/ONCOLOGICAL Hx Cancer: No - INTEGUMENTARY Hx Dermatological Problems: No - MUSCULOSKELETAL/RHEUMATOLOGICAL Hx Musculoskeletal Disorders: Yes Hx Back Pain: Yes - GASTROINTESTINAL Hx Gastrointestinal Disorders: No - GENITOURINARY/GYNECOLOGICAL Hx Genitourinary Disorders: No - PSYCHIATRIC Hx Psychophysiologic Disorder: Yes Hx Anxiety: Yes Hx Depression: Yes Hx Substance Use: No - SURGICAL HISTORY Hx Vascular Access Device: Yes Other/Comment: PACEMAKER/DEFIBRILLATOR - ANESTHESIA Hx Anesthesia: Yes Meds Allergies/Adverse Reactions: Allergies Allergy/AdvReac Type Severity Reaction Status Date / Time tramadol [From Ultram] AdvReac Unknown NAUSEA Verified 02/27/18 12:03 Physical Exam - Constitutional Appears: No Acute Distress - Head Exam Head Exam: ATRAUMATIC, NORMOCEPHALIC - Eye Exam Eye Exam: EOMI - ENT Exam ENT Exam: Mucous Membranes Moist - Respiratory Exam Respiratory Exam: Clear to Auscultation Bilateral, NORMAL BREATHING PATTERN - Cardiovascular Exam Cardiovascular Exam: RRR, +S1, +S2 - GI/Abdominal Exam GI & Abdominal Exam: Normal Bowel Sounds, Soft - Extremities Exam Extremities exam: Positive for: full ROM. Negative for: calf tenderness - Neurological Exam Neurological exam: Oriented x3 - Psychiatric Exam Psychiatric exam: Normal Affect, Normal Mood - Skin Skin Exam: Dry, Intact, Warm Results - Vital Signs Recent Vital Signs: Last Vital Signs Temp 97.8 F 03/11/18 01:18 Pulse 75 03/11/18 01:18 Resp 18 03/11/18 01:18 BP 120/79 03/11/18 01:18 Pulse Ox 98 03/11/18 01:18 - Labs Result Diagrams: 03/11/18 02:32 03/11/18 02:32 Labs: Laboratory Results - last 24 hr 03/11/18 03/11/18 03/11/18 02:32 02:32 02:32 WBC 17.2 H D RBC 4.18 Hgb 10.5 L Hct 34.6 L MCV 82.8 MCH 25.1 MCHC 30.3 L RDW 16.3 H Plt Count 247 MPV 10.6 Gran % 84.2 H Lymph % (Auto) 10.6 L Bay % (Auto) 5.1 Eos % (Auto) 0.0 L Baso % (Auto) 0.1 Gran # 14.48 H Lymph # (Auto) 1.8 Bay # (Auto) 0.9 H Eos # (Auto) 0.0 Baso # (Auto) 0.02 pO2 57 H VBG pH 7.42 VBG pCO2 44.0 VBG HCO3 28.5 H VBG Total CO2 29.9 H VBG O2 Sat (Calc) 91.7 H VBG Base Excess 3.4 H VBG Potassium 4.3 Sodium 142 140.0 Chloride 105 108.0 H Glucose 116 H Lactate 1.8 FiO2 21.0 Potassium 4.5 Carbon Dioxide 28 Anion Gap 14 BUN 24 H Creatinine 1.3 H Est GFR ( Amer) 52 Est GFR (Non-Af Amer) 43 Random Glucose 112 H Calcium 8.5 Magnesium 2.2 Total Bilirubin 0.3 AST 33 ALT 18 Alkaline Phosphatase 88 NT-Pro-B Natriuret Pep 3700 H Total Protein 7.5 Albumin 3.6 Globulin 3.9 Albumin/Globulin Ratio 0.9 L Venous Blood Potassium 4.3 Influenza Typ A,B (EIA) 03/11/18 02:32 WBC RBC Hgb Hct MCV MCH MCHC RDW Plt Count MPV Gran % Lymph % (Auto) Bay % (Auto) Eos % (Auto) Baso % (Auto) Gran # Lymph # (Auto) Bay # (Auto) Eos # (Auto) Baso # (Auto) pO2 VBG pH VBG pCO2 VBG HCO3 VBG Total CO2 VBG O2 Sat (Calc) VBG Base Excess VBG Potassium Sodium Chloride Glucose Lactate FiO2 Potassium Carbon Dioxide Anion Gap BUN Creatinine Est GFR ( Amer) Est GFR (Non-Af Amer) Random Glucose Calcium Magnesium Total Bilirubin AST ALT Alkaline Phosphatase NT-Pro-B Natriuret Pep Total Protein Albumin Globulin Albumin/Globulin Ratio Venous Blood Potassium Influenza Typ A,B (EIA) Negative for flu a/b Assessment & Plan - Assessment and Plan (Free Text) Assessment: Pt is a 52yo female, with a PMH of SLE, adrenal insufficiency on chronic steroids, CHF 2/2 non-ischemic cardiomyopathy EF 15% s/p AICD, recent generator [place] [address] Kahn, endocarditis, on heart transplant list [facility], PFO, ASD, on Warfarin, CVA x2 w/ residual right-sided weakness, non-malignant breast calcifications B/L, PE, anxiety, depression & R breast cellulites, who presents to the ED complaining of flu-like symptoms, weakness and body aches that began after she was discharged from the hospital 12 days ago. Plan: URI - viral vs bacterial vs Allergic Rhinitis - r/o FLU - Flu negative - s/p vanc/ zosyn in ED - Afebrile, normotensive, RRR - Leukocytosis 17, likely due to steroid use - continue vanc and zosyn - Negative for FLU - Consult ID History of Adrenal Insufficiency - hydrocortisone 100 IV x1 in ED, then 50 daily, slow taper for at least 2-3 weeks, follow up out pt End Stage Dilated Cardiomyopathy - continue home milrinone drip - continue home amiodarone - continue bumetanide for LE edema - continue warfarin, daily INR Chronic Back Pain - lidoderm patch - percocet 10, BID PRN Pt seen, examined, assessment and plan discussed with Dr Dior Simon PGY1 - Date & Time Date: 03/11/18 Time: 04:54
[2018-03-11] MEDS ORDERED: Oxycodone/Acetaminophen 5/325 mg Tab PO ONE (04:45)
[2018-03-11 04:58] LABS: URINE BILIRUBIN NEGATIVE (NEGATIVE); URINE BLOOD NEGATIVE (NEGATIVE); URINE GLUCOSE (UA) NEGATIVE (NEGATIVE); URINE LEUKOCYTE ESTERASE NEGATIVE Leu/uL (NEGATIVE); URINE PROTEIN TRACE mg/dL (<30 mg/dL)
[2018-03-11] MEDS ORDERED: Lidocaine 5% Patch TD STA (05:05)
[2018-03-11 05:18] LABS: URINE APPEARANCE CLEAR (CLEAR); URINE COLOR YELLOW (YELLOW)
[2018-03-11 05:19] LABS: URINE BACTERIA FEW (NEG); URINE RBC 0 - 2 /hpf (0-2); URINE WBC 0 - 2 /hpf (0-6)
[2018-03-11] MEDS ORDERED: Primacor 1 mg/ml Inj (10 ml) IV SCH (06:00)
[2018-03-11] MEDS ORDERED: Milrinone 20mg/100ml D5W 100 ML IV SCH (06:15)
[2018-03-11 08:46] LABS: GRAN # 14.59 (1.4-6.5); GRAN % 91.4 % (50.0-68.0); HEMOGLOBIN 10.4 g/dL (12.0-16.0); LYMPH # 0.9 (1.2-3.4); LYMPH % 5.5 % (22.0-35.0); MEAN CELL VOLUME 82.4 fl (80.0-105.0); MEAN CORPUSCULAR HEMOGLOBIN 24.7 pg (25.0-35.0); MEAN PLATELET VOLUME 9.9 fl (7.0-11.0); MONO # 0.5 (0.1-0.6); MONO % 3.1 % (1.0-6.0); PLATELET COUNT 204 10^3/uL (120.0-450.0); RBC 4.21 10^6/uL (3.5-6.1); RED CELL DISTRIBUTION WIDTH 16.3 % (11.5-14.5)
[2018-03-11 08:49] LABS: INR 2.72; PROTHROMBIN TIME 31.9 SECONDS (9.4-12.5)
[2018-03-11 09:15] LABS: BLOOD UREA NITROGEN 21 mg/dL (7-21)
[2018-03-11 09:16] LABS: ALBUMIN 3.5 g/dL (3.0-4.8); CALCIUM 8.3 mg/dL (8.4-10.5); GFR NON-AFRICAN AMERICAN 53
[2018-03-11 09:17] LABS: ALB/GLOB RATIO 0.9 (1.1-1.8); ALT/SGPT 21 U/L (7-56); AST/SGOT 21 U/L (14-36)
[2018-03-11 09:47] LABS: ATYPICAL LYMPHOCYTE 2 % (0.0-0.0); LYMPHOCYTE 5 % (22.0-35.0); MONOCYTE 2 % (1.0-6.0)
[2018-03-11 09:48] LABS: ANISOCYTOSIS 1+; HYPOCHROMIA 1+; LARGE PLATELETS PRESENT; MICROCYTOSIS 1+; NEUTROPHIL 91 % (50.0-70.0); OVALOCYTES SLIGHT; PLATELET ESTIMATE NORMAL (NORMAL); POLYCHROMASIA SLIGHT
[2018-03-11] MEDS: Cefepime 1gm in NS 100ml 1 GM/100 ML BAG IVPB SCH ×2 (09:50→22:05)
[2018-03-11] MEDS: Lidocaine 5% Patch TD SCH (10:22)
[2018-03-11] MEDS: Milrinone 20mg/100ml D5W 100 ML IV PRN ×2 (10:23→18:04)
--- NOTE | 2018-03-11 10:32 | CARD ---
APPROVED REPORT Date of service: 03/11/2018 EKG Measurement Heart [id number] <Conclusion> Sinus rhythm with occasional and consecutive premature ventricular complexes Left axis deviation Nonspecific T wave abnormality Prolonged QT Abnormal ECG
--- NOTE | 2018-03-11 11:02 | RAD ---
Date of service: 03/11/2018 HISTORY: cough COMPARISON: 02/27/2018 TECHNIQUE: Chest PA and lateral FINDINGS: LUNGS: No active pulmonary disease. PLEURA: No significant pleural effusion identified. No pneumothorax apparent. CARDIOVASCULAR: Mild cardiomegaly OSSEOUS STRUCTURES: No significant abnormalities. VISUALIZED UPPER ABDOMEN: Normal. OTHER FINDINGS: Left-sided pacemaker and defibrillation device IMPRESSION: No active disease.
[2018-03-11] MEDS ORDERED: Influenza Vaccine 60 mcg/0.5 mL SYR (4YR UP) IM ONE (14:52)
[2018-03-11] MEDS ORDERED: Pneumococcal 23-Valent Vaccine IM ONE (14:52)
[2018-03-11] MEDS: Oxycodone/Acetaminophen 10/325 mg Tab PO PRN ×2 (15:31→22:05)
--- NOTE | 2018-03-11 17:24 | CP.PCM.CON ---
History of Present Illness - History of Present Illness History of Present Illness: 52 year old female with PMH of Systemic Lupus Erythematosus, S/P AICD placement, history of pulmonary emboli, history of cerebrovascular accident, asthma, history of Sepsis due to right breast cellulitis/mastitis with purulent discharge, growing Serratia, history of bilateral breast mastitis growing coagulase negative Staph and Klebsiella pneumoniae, Ashley glabrata fungemia, suspicious to be PICC line/port-related S/P port removal came in to [facility] complaining of generalized weakness, body aches and cough initially started about a week ago but it worsened in the past 3-4 days (the cough). She had rhinorrhea as well which has improved, and the body aches have improved as well. She denies fever or chills, no nausea or vomiting, no chest pain, no SOB, no headache or dizziness, no abdominal pain, no diarrhea, no dysuria. WBC count is elevated and Infectious Diseases consult is requested to further evaluate and manage. Review of Systems - Review of Systems All systems: reviewed and no additional remarkable complaints except (per HPI) Past Patient History - Infectious Disease Hx of Infectious Diseases: None - Tetanus Immunizations Tetanus Immunization: Unknown - Past Medical History & Family History Past Medical History?: Yes - Past Social History Smoking Status: Former Smoker - CARDIAC Hx Cardiac Disorders: Yes Hx Cardia Arrhythmia: Yes Hx Congestive Heart Failure: Yes Hx Hypercholesterolemia: Yes Hx Hypertension: Yes Hx Internal Defibrillator: Yes Hx Pacemaker: Yes Other/Comment: non ischemic cardiomyopathy,endocarditis, pt on milrinone drip via earnestine picc line that has been in over 1 yr, on heart transplant list at [facility] in [place] - PULMONARY Hx Respiratory Disorders: Yes (pe about 2 yrs ago, dyspnea) Hx Asthma: Yes Hx Pneumonia: Yes Other/Comment: pt denies having the flue vaccine on 03/11/18 - NEUROLOGICAL Hx Neurological Disorder: Yes HX Cerebrovascular Accident: Yes (x2 r side weakness resolved) Hx Dizziness: Yes - HEENT Hx HEENT Problems: Yes (eyeglasses, bifocals) - RENAL Hx Chronic Kidney Disease: No - ENDOCRINE/METABOLIC Hx Endocrine Disorders: Yes Hx Systemic Lupus Erythematosus: Yes - HEMATOLOGICAL/ONCOLOGICAL Hx Blood Disorders: Yes Hx Anemia: Yes (blood transfusion) - INTEGUMENTARY Hx Dermatological Problems: Yes (foul smelling feet) Other/Comment: white patches on tongue - MUSCULOSKELETAL/RHEUMATOLOGICAL Hx Falls: No - GASTROINTESTINAL Hx Gastrointestinal Disorders: Yes (obese) Hx Gastroesophageal Reflux: Yes - GENITOURINARY/GYNECOLOGICAL Hx Genitourinary Disorders: Yes Hx Sexually Transmitted Disorders: (pt denies) Other/Comment: fibroids, heavy irregular periods, last period 3 months ago, pt had mammogram about 3 yrs ago was told to not take her warfarin, she thinks she did not stop it long enough becaruse when the machine pressed down on her right breast she developed hematomas to r and l side of breast which developed to open draining wounds, which were periodically drained, cared for by dr rachel beth and eventually healed. pt's last mammogram was last year 2016 - PSYCHIATRIC Hx Substance Use: No - SURGICAL HISTORY Hx Surgeries: Yes (c section, earnestine picc) Other/Comment: PACEMAKER/DEFIBRILLATOR - ANESTHESIA Hx Anesthesia: Yes Meds Allergies/Adverse Reactions: Allergies Allergy/AdvReac Type Severity Reaction Status Date / Time tramadol [From Ultram] AdvReac Unknown NAUSEA Verified 02/27/18 12:03 - Medications Medications: Current Medications Acetaminophen (Tylenol 325mg Tab) 650 mg PO Q6H PRN PRN Reason: Fever >100.4 F Alprazolam (Xanax) 0.25 mg PO QID PRN; Protocol PRN Reason: Anxiety Stop: 03/18/18 05:51 Last Admin: 03/11/18 10:34 Dose: 0.25 mg Amiodarone HCl (Cordarone) 200 mg PO DAILY [facility] Last Admin: 03/11/18 10:21 Dose: 200 mg Bumetanide (Bumex) 1 mg PO BID [facility] Last Admin: 03/11/18 10:21 Dose: 1 mg Hydrocortisone Sodium Succinate (Solu-Cortef) 50 mg IVP DAILY [facility] Last Admin: 03/11/18 10:21 Dose: 50 mg Milrinone Lactate/Dextrose (Primacor 20mg/100ml D5w) 100 mls @ 12.383 mls/hr IV .Q8H5M PRN; Protocol PRN Reason: TITRATE PER MD ORDER Last Admin: 03/11/18 10:23 Dose: 0.5 mcg/kg/min, 12.383 mls/hr Cefepime HCl (Maxipime 1gm) 1 gm in 100 mls @ 100 mls/hr IVPB Q12 [facility]; Protocol Last Admin: 03/11/18 09:50 Dose: 100 mls/hr Lidocaine (Lidoderm) 1 ea TD DAILY [facility] Last Admin: 03/11/18 10:22 Dose: Not Given Lisinopril (Zestril) 2.5 mg PO DAILY [facility] Last Admin: 03/11/18 10:21 Dose: 2.5 mg Metoprolol Succinate (Toprol Xl) 12.5 mg PO QPM [facility] Oxycodone/Acetaminophen (Percocet 10/325 Mg Tab) 1 tab PO BID PRN PRN Reason: Pain, severe (8-10) Last Admin: 03/11/18 15:31 Dose: 1 tab Warfarin Sodium (Coumadin) 2 mg PO 1800 [facility]; Protocol Physical Exam - Constitutional Appears: Chronically Ill - Head Exam Head Exam: NORMAL INSPECTION - ENT Exam ENT Exam: Mucous Membranes Moist - Neck Exam Neck exam: Negative for: Meningismus - Respiratory Exam Respiratory Exam: Decreased Breath Sounds, Rales (few crackles at the bases) - Cardiovascular Exam Cardiovascular Exam: +S1, +S2 - GI/Abdominal Exam GI & Abdominal Exam: Soft. absent: Tenderness Results - Vital Signs Recent Vital Signs: Last Vital Signs Temp 98.3 F 03/11/18 14:00 Pulse 73 03/11/18 14:27 Resp 18 03/11/18 14:27 BP 104/67 03/11/18 14:00 Pulse Ox 99 03/11/18 14:00 - Labs Result Diagrams: 03/11/18 08:30 03/11/18 08:15 Labs: Laboratory Results - last 24 hr 03/11/18 03/11/18 03/11/18 02:32 02:32 02:32 WBC 17.2 H D RBC 4.18 Hgb 10.5 L Hct 34.6 L MCV 82.8 MCH 25.1 MCHC 30.3 L RDW 16.3 H Plt Count 247 MPV 10.6 Gran % 84.2 H Lymph % (Auto) 10.6 L Fisher % (Auto) 5.1 Eos % (Auto) 0.0 L Baso % (Auto) 0.1 Gran # 14.48 H Lymph # (Auto) 1.8 Fisher # (Auto) 0.9 H Eos # (Auto) 0.0 Baso # (Auto) 0.02 Neutrophils % (Manual) Lymphocytes % (Manual) Atypical Lymphs % Monocytes % (Manual) Platelet Evaluation Large Platelets Polychromasia Hypochromasia Anisocytosis (manual) Microcytosis (manual) Ovalocytes PT INR pO2 57 H VBG pH 7.42 VBG pCO2 44.0 VBG HCO3 28.5 H VBG Total CO2 29.9 H VBG O2 Sat (Calc) 91.7 H VBG Base Excess 3.4 H VBG Potassium 4.3 Sodium 142 140.0 Chloride 105 108.0 H Glucose 116 H Lactate 1.8 FiO2 21.0 Potassium 4.5 Carbon Dioxide 28 Anion Gap 14 BUN 24 H Creatinine 1.3 H Est GFR ( Amer) 52 Est GFR (Non-Af Amer) 43 Random Glucose 112 H Calcium 8.5 Magnesium 2.2 Total Bilirubin 0.3 AST 33 ALT 18 Alkaline Phosphatase 88 NT-Pro-B Natriuret Pep 3700 H Total Protein 7.5 Albumin 3.6 Globulin 3.9 Albumin/Globulin Ratio 0.9 L Procalcitonin Venous Blood Potassium 4.3 Urine Color Urine Appearance Urine pH Ur Specific [place] Urine Protein Urine Glucose (UA) Urine Ketones Urine Blood Urine Nitrate Urine Bilirubin Urine Urobilinogen Ur Leukocyte Esterase Urine RBC Urine WBC Ur Epithelial Cells Urine Bacteria Influenza Typ A,B (EIA) 03/11/18 03/11/18 03/11/18 02:32 04:00 05:42 WBC RBC Hgb Hct MCV MCH MCHC RDW Plt Count MPV Gran % Lymph % (Auto) Fisher % (Auto) Eos % (Auto) Baso % (Auto) Gran # Lymph # (Auto) Fisher # (Auto) Eos # (Auto) Baso # (Auto) Neutrophils % (Manual) Lymphocytes % (Manual) Atypical Lymphs % Monocytes % (Manual) Platelet Evaluation Large Platelets Polychromasia Hypochromasia Anisocytosis (manual) Microcytosis (manual) Ovalocytes PT INR pO2 VBG pH VBG pCO2 VBG HCO3 VBG Total CO2 VBG O2 Sat (Calc) VBG Base Excess VBG Potassium Sodium Chloride Glucose Lactate FiO2 Potassium Carbon Dioxide Anion Gap BUN Creatinine Est GFR ( Amer) Est GFR (Non-Af Amer) Random Glucose Calcium Magnesium Total Bilirubin AST ALT Alkaline Phosphatase NT-Pro-B Natriuret Pep Total Protein Albumin Globulin Albumin/Globulin Ratio Procalcitonin 0.31 Venous Blood Potassium Urine Color Yellow Urine Appearance Clear Urine pH 6.0 Ur Specific [place] 1.015 Urine Protein Trace H Urine Glucose (UA) Negative Urine Ketones Trace H Urine Blood Negative Urine Nitrate Negative Urine Bilirubin Negative Urine Urobilinogen 1.0 H Ur Leukocyte Esterase Negative Urine RBC 0 - 2 Urine WBC 0 - 2 Ur Epithelial Cells 6 - 8 Urine Bacteria Few Influenza Typ A,B (EIA) Negative for flu a/b 03/11/18 03/11/18 03/11/18 08:15 08:30 08:30 WBC 16.0 H RBC 4.21 Hgb 10.4 L Hct 34.7 L MCV 82.4 MCH 24.7 L MCHC 30.0 L RDW 16.3 H Plt Count 204 MPV 9.9 Gran % 91.4 H Lymph % (Auto) 5.5 L Fisher % (Auto) 3.1 Eos % (Auto) 0.0 L Baso % (Auto) 0.0 Gran # 14.59 H Lymph # (Auto) 0.9 L Fisher # (Auto) 0.5 Eos # (Auto) 0.0 Baso # (Auto) 0.00 Neutrophils % (Manual) 91 H Lymphocytes % (Manual) 5 L Atypical Lymphs % 2 H Monocytes % (Manual) 2 Platelet Evaluation Normal Large Platelets Present Polychromasia Slight Hypochromasia 1+ Anisocytosis (manual) 1+ Microcytosis (manual) 1+ Ovalocytes Slight PT 31.9 H INR 2.72 pO2 VBG pH VBG pCO2 VBG HCO3 VBG Total CO2 VBG O2 Sat (Calc) VBG Base Excess VBG Potassium Sodium 140 Chloride 106 Glucose Lactate FiO2 Potassium 3.8 Carbon Dioxide 29 Anion Gap 9 L BUN 21 Creatinine 1.1 Est GFR ( Amer) > 60 Est GFR (Non-Af Amer) 53 Random Glucose 132 H Calcium 8.3 L Magnesium Total Bilirubin 0.2 AST 21 ALT 21 Alkaline Phosphatase 100 NT-Pro-B Natriuret Pep Total Protein 7.3 Albumin 3.5 Globulin 3.8 Albumin/Globulin Ratio 0.9 L Procalcitonin Venous Blood Potassium Urine Color Urine Appearance Urine pH Ur Specific [place] Urine Protein Urine Glucose (UA) Urine Ketones Urine Blood Urine Nitrate Urine Bilirubin Urine Urobilinogen Ur Leukocyte Esterase Urine RBC Urine WBC Ur Epithelial Cells Urine Bacteria Influenza Typ A,B (EIA) Assessment & Plan - Assessment and Plan (Free Text) Plan: Assessment systemic inflammatory response syndrome, consider acute bronchitis as well as URI, no specific evidence of pneumonia history of Ashley glabrata fungemia, suspicious to be PICC line/port-related S/P port removal; RANJEET done and did not show valve vegetations or vegetations on the AICD history of sepsis due to C. parapsilosis and C. glabrata fungemia and Enterococcus bacteremia probably from PICC line, unable to rule out endocarditis history of Sepsis due to right breast cellulitis/mastitis with purulent discharge, growing Serratia history of bilateral breast mastitis growing coagulase negative Staph and Klebsiella pneumoniae history of vaginal candidiasis SLE history of pulmonary emboli CVA asthma S/P ICD placement Plan gave a dose of IV Vancomycin and started Cefepime and Doxycycline pending blood cx, PCT; reviewed CXR which did not show infiltrates will monitor clinically Overall prognosis is poor
[2018-03-11] MEDS ORDERED: Metoprolol Succinate 25 mg XL Tab PO SCH (18:00)
--- NOTE | 2018-03-11 21:19 | CP.PCM.PN ---
<Zoë Suarez - Last Filed: 03/11/18 21:24> Subjective - Date & Time of Evaluation Date of Evaluation: 03/11/18 Time of Evaluation: 21:11 - Subjective Subjective: PGY-[address] Gu, Zaida CC: tongue pain tongue pain started a couple of days ago. Pain did not go to the throat, did not go to neck/heart. Denies F/C, dysphagia, drooling, odynophagia, sore throat, chest pain,neck pain PE: NAD tongue looked blue, pt just ate jolly rancher. Some white plaques around uvula area. Non-injected throat regular s1 s2 CTA b/l no w.r.r A/P: Oral candidiasis - cepacol - nystatin swish and swallow Objective - Vital Signs/Intake and Output Vital Signs (last 24 hours): Temp Pulse Resp BP Pulse Ox 98.4 F 85 21 113/73 93 L 03/11/18 18:00 03/11/18 18:07 03/11/18 18:00 03/11/18 18:07 03/11/18 18:00 Intake and Output: 03/11/18 03/12/18 18:59 06:59 Intake Total 1205 Output Total 0 Balance 1205 - Medications Medications: Current Medications Acetaminophen (Tylenol 325mg Tab) 650 mg PO Q6H PRN PRN Reason: Fever >100.4 F Alprazolam (Xanax) 0.25 mg PO QID PRN; Protocol PRN Reason: Anxiety Stop: 03/18/18 05:51 Last Admin: 03/11/18 10:34 Dose: 0.25 mg Amiodarone HCl (Cordarone) 200 mg PO DAILY [facility] Last Admin: 03/11/18 10:21 Dose: 200 mg Bumetanide (Bumex) 1 mg PO BID [facility] Last Admin: 03/11/18 18:07 Dose: 1 mg Hydrocortisone Sodium Succinate (Solu-Cortef) 50 mg IVP DAILY [facility] Last Admin: 03/11/18 10:21 Dose: 50 mg Milrinone Lactate/Dextrose (Primacor 20mg/100ml D5w) 100 mls @ 12.383 mls/hr IV .Q8H5M PRN; Protocol PRN Reason: TITRATE PER MD ORDER Last Admin: 03/11/18 18:04 Dose: 0.5 mcg/kg/min, 12.383 mls/hr Cefepime HCl (Maxipime 1gm) 1 gm in 100 mls @ 100 mls/hr IVPB Q12 [facility]; Protocol Last Admin: 03/11/18 09:50 Dose: 100 mls/hr Lidocaine (Lidoderm) 1 ea TD DAILY [facility] Last Admin: 03/11/18 10:22 Dose: Not Given Lisinopril (Zestril) 2.5 mg PO DAILY [facility] Last Admin: 03/11/18 10:21 Dose: 2.5 mg Metoprolol Succinate (Toprol Xl) 12.5 mg PO QPM [facility] Last Admin: 03/11/18 18:07 Dose: 12.5 mg Oxycodone/Acetaminophen (Percocet 10/325 Mg Tab) 1 tab PO BID PRN PRN Reason: Pain, severe (8-10) Last Admin: 03/11/18 15:31 Dose: 1 tab Warfarin Sodium (Coumadin) 2 mg PO 1800 [facility]; Protocol Last Admin: 03/11/18 18:07 Dose: 2 mg - Labs Labs: 03/11/18 08:30 03/11/18 08:15 PT 31.9 SECONDS (9.4-12.5) H 03/11/18 08:30 INR 2.72 03/11/18 08:30 <Lionel Gu - Last Filed: 03/12/18 02:27> Objective - Vital Signs/Intake and Output Vital Signs (last 24 hours): Temp Pulse Resp BP Pulse Ox 98.8 F 110 H 18 122/74 96 03/12/18 00:01 03/12/18 02:01 03/12/18 00:01 03/12/18 00:01 03/12/18 00:01 Intake and Output: 03/11/18 03/12/18 18:59 06:59 Intake Total 1205 100 Output Total 0 Balance 1205 100 - Medications Medications: Current Medications Acetaminophen (Tylenol 325mg Tab) 650 mg PO Q6H PRN PRN Reason: Fever >100.4 F Alprazolam (Xanax) 0.25 mg PO QID PRN; Protocol PRN Reason: Anxiety Stop: 03/18/18 05:51 Last Admin: 10/06/18 10:34 Dose: 0.25 mg Amiodarone HCl (Cordarone) 200 mg PO DAILY [facility] Last Admin: 03/11/18 10:21 Dose: 200 mg Benzocaine/Menthol (Cepacol Sore Throat) 1 amber MT QID [facility] Last Admin: 03/11/18 22:03 Dose: 1 amber Bumetanide (Bumex) 1 mg PO BID [facility] Last Admin: 03/11/18 18:07 Dose: 1 mg Hydrocortisone Sodium Succinate (Solu-Cortef) 50 mg IVP DAILY [facility] Last Admin: 03/11/18 10:21 Dose: 50 mg Milrinone Lactate/Dextrose (Primacor 20mg/100ml D5w) 100 mls @ 12.383 mls/hr IV .Q8H5M PRN; Protocol PRN Reason: TITRATE PER MD ORDER Last Admin: 03/12/18 02:01 Dose: 0.5 mcg/kg/min, 12.383 mls/hr Cefepime HCl (Maxipime 1gm) 1 gm in 100 mls @ 100 mls/hr IVPB Q12 [facility]; Protocol Last Admin: 03/11/18 22:05 Dose: 100 mls/hr Lidocaine (Lidoderm) 1 ea TD DAILY [facility] Last Admin: 03/11/18 10:22 Dose: Not Given Lisinopril (Zestril) 2.5 mg PO DAILY [facility] Last Admin: 03/11/18 10:21 Dose: 2.5 mg Metoprolol Succinate (Toprol Xl) 12.5 mg PO QPM [facility] Last Admin: 03/11/18 18:07 Dose: 12.5 mg Nystatin (Nystatin Oral Susp) 5 ml PO QID [facility] Last Admin: 03/11/18 22:04 Dose: 5 ml Oxycodone/Acetaminophen (Percocet 10/325 Mg Tab) 1 tab PO BID PRN PRN Reason: Pain, severe (8-10) Last Admin: 03/11/18 22:05 Dose: 1 tab Warfarin Sodium (Coumadin) 2 mg PO 1800 [facility]; Protocol Last Admin: 03/11/18 18:07 Dose: 2 mg - Labs Labs: 03/11/18 08:30 03/11/18 08:15 PT 31.9 SECONDS (9.4-12.5) H 10/06/18 08:30 INR 2.72 03/11/18 08:30 Attending/Attestation - Attestation I have personally seen and examined this patient.: No I have fully participated in the care of the patient.: No I have reviewed all pertinent clinical information, including history, physical exam and plan: No
[2018-03-11] MEDS: Benzocaine/Menthol (Cepacol) Lozenge MT SCH (22:03)
[2018-03-11] MEDS: Nystatin 100,000 Units/ml Oral Susp 5 ml UD PO SCH (22:04)
[2018-03-12] MEDS: Milrinone 20mg/100ml D5W 100 ML IV PRN ×3 (02:01→20:03)
[2018-03-12] MEDS ORDERED: Sodium Chloride 0.9% 500 ML IV STA (06:09)
--- NOTE | 2018-03-12 06:18 | CP.PCM.PN ---
Addendum entered and electronically signed by Zoë Suarez DO 03/12/18 06:30: SBP 100. s/p 250cc NS bolus and solucortef Called Dr Alvarez re: new consult Blood pressure meds all held Original Note: <AlfredKyle Mansoor - Last Filed: 03/12/18 06:20> Subjective - Date & Time of Evaluation Date of Evaluation: 03/12/18 Time of Evaluation: 06:13 - Subjective Subjective: Paged for hypotension this morning, approx 6:00am. RN reports pt BP to be 80/40. Pt pressure was taken several times manually, and with doppler, by RN, Dr Suarez and myself. Pt BP ranged from 70/40 to 80/40. Pt is asymptomatic. Spoke with Dr Gu and he recommended giving pt 250 NS bolus, this conservative measure was taken due to the pt low EF of approx 15%. Pt was also give a stat dose of solucortef 50 IV. All BP meds will be held this morning. Cardio, Dr Alvarez is being consulted. Objective - Vital Signs/Intake and Output Vital Signs (last 24 hours): Temp Pulse Resp BP Pulse Ox 98.8 F 105 H 18 122/74 96 03/12/18 00:01 03/12/18 05:24 03/12/18 00:01 03/12/18 00:01 03/12/18 00:01 Intake and Output: 03/11/18 03/12/18 18:59 06:59 Intake Total 1205 450 Output Total 0 0 Balance 1205 450 - Medications Medications: Current Medications Acetaminophen (Tylenol 325mg Tab) 650 mg PO Q6H PRN PRN Reason: Fever >100.4 F Alprazolam (Xanax) 0.25 mg PO QID PRN; Protocol PRN Reason: Anxiety Stop: 03/18/18 05:51 Last Admin: 03/11/18 10:34 Dose: 0.25 mg Amiodarone HCl (Cordarone) 200 mg PO DAILY [facility] Last Admin: 03/11/18 10:21 Dose: 200 mg Benzocaine/Menthol (Cepacol Sore Throat) 1 amber MT QID [facility] Last Admin: 03/11/18 22:03 Dose: 1 amber Bumetanide (Bumex) 1 mg PO BID [facility] Last Admin: 03/11/18 18:07 Dose: 1 mg Hydrocortisone Sodium Succinate (Solu-Cortef) 50 mg IVP DAILY [facility] Last Admin: 03/11/18 10:21 Dose: 50 mg Hydrocortisone Sodium Succinate (Solu-Cortef) 50 mg IVP STAT STA Stop: 03/12/18 06:10 Milrinone Lactate/Dextrose (Primacor 20mg/100ml D5w) 100 mls @ 12.383 mls/hr IV .Q8H5M PRN; Protocol PRN Reason: TITRATE PER MD ORDER Last Admin: 03/12/18 02:01 Dose: 0.5 mcg/kg/min, 12.383 mls/hr Cefepime HCl (Maxipime 1gm) 1 gm in 100 mls @ 100 mls/hr IVPB Q12 [facility]; Protocol Last Admin: 03/11/18 22:05 Dose: 100 mls/hr Sodium Chloride (Sodium Chloride 0.9%) 500 mls @ 999 mls/hr IV .Q31M STA Stop: 03/12/18 06:39 Lidocaine (Lidoderm) 1 ea TD DAILY [facility] Last Admin: 03/11/18 10:22 Dose: Not Given Lisinopril (Zestril) 2.5 mg PO DAILY [facility] Last Admin: 03/11/18 10:21 Dose: 2.5 mg Metoprolol Succinate (Toprol Xl) 12.5 mg PO QPM [facility] Last Admin: 03/11/18 18:07 Dose: 12.5 mg Nystatin (Nystatin Oral Susp) 5 ml PO QID [facility] Last Admin: 03/11/18 22:04 Dose: 5 ml Oxycodone/Acetaminophen (Percocet 10/325 Mg Tab) 1 tab PO BID PRN PRN Reason: Pain, severe (8-10) Last Admin: 03/11/18 22:05 Dose: 1 tab Warfarin Sodium (Coumadin) 2 mg PO 1800 [facility]; Protocol Last Admin: 03/11/18 18:07 Dose: 2 mg - Labs Labs: 03/11/18 08:30 03/11/18 08:15 PT 31.9 SECONDS (9.4-12.5) H 03/11/18 08:30 INR 2.72 03/11/18 08:30 - Constitutional Appears: No Acute Distress - Cardiovascular Exam Additional comments: denies chest pain or SOB <Riccardo,Majdi - Last Filed: 03/12/18 06:43> Objective - Vital Signs/Intake and Output Vital Signs (last 24 hours): Temp Pulse Resp BP Pulse Ox 98.8 F 105 H 18 122/74 96 03/12/18 00:01 03/12/18 05:24 03/12/18 00:01 03/12/18 00:01 03/12/18 00:01 Intake and Output: 03/11/18 03/12/18 18:59 06:59 Intake Total 1205 450 Output Total 0 0 Balance 1205 450 - Medications Medications: Current Medications Acetaminophen (Tylenol 325mg Tab) 650 mg PO Q6H PRN PRN Reason: Fever >100.4 F Alprazolam (Xanax) 0.25 mg PO QID PRN; Protocol PRN Reason: Anxiety Stop: 03/18/18 05:51 Last Admin: 03/11/18 10:34 Dose: 0.25 mg Amiodarone HCl (Cordarone) 200 mg PO DAILY [facility] Last Admin: 03/11/18 10:21 Dose: 200 mg Benzocaine/Menthol (Cepacol Sore Throat) 1 amber MT QID [facility] Last Admin: 03/11/18 22:03 Dose: 1 amber Bumetanide (Bumex) 1 mg PO BID [facility] Last Admin: 03/11/18 18:07 Dose: 1 mg Hydrocortisone Sodium Succinate (Solu-Cortef) 50 mg IVP DAILY [facility] Last Admin: 03/11/18 10:21 Dose: 50 mg Milrinone Lactate/Dextrose (Primacor 20mg/100ml D5w) 100 mls @ 12.383 mls/hr IV .Q8H5M PRN; Protocol PRN Reason: TITRATE PER MD ORDER Last Admin: 03/12/18 02:01 Dose: 0.5 mcg/kg/min, 12.383 mls/hr Cefepime HCl (Maxipime 1gm) 1 gm in 100 mls @ 100 mls/hr IVPB Q12 [facility]; Protocol Last Admin: 03/11/18 22:05 Dose: 100 mls/hr Lidocaine (Lidoderm) 1 ea TD DAILY [facility] Last Admin: 03/11/18 10:22 Dose: Not Given Metoprolol Succinate (Toprol Xl) 12.5 mg PO QPM [facility] Last Admin: 03/11/18 18:07 Dose: 12.5 mg Nystatin (Nystatin Oral Susp) 5 ml PO QID [facility] Last Admin: 03/11/18 22:04 Dose: 5 ml Oxycodone/Acetaminophen (Percocet 10/325 Mg Tab) 1 tab PO BID PRN PRN Reason: Pain, severe (8-10) Last Admin: 03/11/18 22:05 Dose: 1 tab Warfarin Sodium (Coumadin) 2 mg PO 1800 [facility]; Protocol Last Admin: 03/11/18 18:07 Dose: 2 mg - Labs Labs: 03/11/18 08:30 03/11/18 08:15 PT 31.9 SECONDS (9.4-12.5) H 03/11/18 08:30 INR 2.72 03/11/18 08:30 Attending/Attestation - Attestation I have personally seen and examined this patient.: No I have fully participated in the care of the patient.: Yes I have reviewed all pertinent clinical information, including history, physical exam and plan: Yes
[2018-03-12 08:08] LABS: INR 2.36; PROTHROMBIN TIME 27.6 SECONDS (9.4-12.5)
[2018-03-12 08:17] LABS: BASO # 0.01 K/mm3 (0.0-2.0); BASO % 0.1 % (0.0-3.0); EOS % 0.3 % (1.5-5.0); GRAN # 10.59 (1.4-6.5); GRAN % 88.8 % (50.0-68.0); HEMOGLOBIN 10.1 g/dL (12.0-16.0); LYMPH # 0.8 (1.2-3.4); LYMPH % 6.4 % (22.0-35.0); MEAN CELL VOLUME 83.3 fl (80.0-105.0); MEAN CORPUSCULAR HEMOGLOBIN 24.5 pg (25.0-35.0); MEAN CORPUSCULAR HGB CONC 29.4 g/dl (31.0-37.0); MEAN PLATELET VOLUME 10.7 fl (7.0-11.0); MONO # 0.5 (0.1-0.6); MONO % 4.4 % (1.0-6.0); RBC 4.12 10^6/uL (3.5-6.1); RED CELL DISTRIBUTION WIDTH 16.5 % (11.5-14.5); WHITE BLOOD COUNT 11.9 10^3/ul (4.5-11.0)
[2018-03-12 09:02] LABS: ALB/GLOB RATIO 0.9 (1.1-1.8); ALBUMIN 3.1 g/dL (3.0-4.8); CALCIUM 7.8 mg/dL (8.4-10.5)
[2018-03-12] MEDS: Cefepime 1gm in NS 100ml 1 GM/100 ML BAG IVPB SCH ×2 (09:56→22:00)
[2018-03-12] MEDS: Benzocaine/Menthol (Cepacol) Lozenge MT SCH ×4 (09:57→21:59)
[2018-03-12] MEDS: Nystatin 100,000 Units/ml Oral Susp 5 ml UD PO SCH ×4 (09:57→22:00)
[2018-03-12] MEDS: Lidocaine 5% Patch TD SCH (09:57)
[2018-03-12] MEDS ORDERED: Potassium Chloride 20 mEq ER Tab PO ONE (10:28)
[2018-03-12] MEDS: Albuterol-Ipratrop 3 mg / 0.5 (3 ml) UD IH PRN (11:22)
--- NOTE | 2018-03-12 13:40 | CP.PCM.PN ---
<Raúl Pearl - Last Filed: 03/12/18 13:20> Subjective - Date & Time of Evaluation Date of Evaluation: 03/12/18 Time of Evaluation: 08:30 - Subjective Subjective: Raúl Pearl- Internal Medicine Resident- Progress Note on Behalf of Hospitalist Team Subjective: Patient seen and examined at bedside. Resting comfortably in bed. Blood pressure ow in 70s/50s overnight. Given IVF 250cc bolus + solu cortef with blood pressure increase into low 100s/80s. Patient states weakness and body aches have improved relative to baseline. Admits to baseline nasal congestion and sinus pressure. Denies fever, chills, chest pain, shortness of breath at rest, abdominal pain, nausea, vomiting, diarrhea, constipation, and urinary symptoms. 12-point review of systems negative except as indicated in the HPI Physical Examination: - Constitutional Appears: No Acute Distress - Head Exam Head Exam: ATRAUMATIC, NORMOCEPHALIC - Eye Exam Eye Exam: EOMI - ENT Exam ENT Exam: Mucous Membranes Moist, Sinus tenderness on palpation - Respiratory Exam Respiratory Exam: Clear to Auscultation Bilateral, NORMAL BREATHING PATTERN - Cardiovascular Exam Cardiovascular Exam: RRR, +S1, +S2 - GI/Abdominal Exam GI & Abdominal Exam: Normal Bowel Sounds, Soft - Extremities Exam Extremities exam: Positive for: full ROM. Negative for: calf tenderness - Neurological Exam Neurological exam: Alert, Oriented x3 - Psychiatric Exam Psychiatric exam: Normal Affect, Normal Mood - Skin Skin Exam: Dry, Intact, Warm Assessment and Plan: Pt is a 52yo female, with a PMH of SLE, adrenal insufficiency on chronic steroids, CHF 2/2 non-ischemic cardiomyopathy EF 15% s/p AICD, recent [place] [address] Kahn, endocarditis, on heart transplant list RWJ, PFO, ASD, on Warfarin, CVA x2 w/ residual right-sided weakness, non-malignant breast calcifications B/L, PE, anxiety, depression & R breast cellulites, who was admitted for evaluation and treatment of flu-like symptoms, weakness and body aches. Upper Respiratory Infection - viral vs bacterial vs Allergic Rhinitis - Flu negative - s/p vanc/ zosyn in ED - procalcitonin low- will discuss with ID for cefepime management - ID consulted- appreciate recommendations Acute Kidney Injury - creatinine increased to 1.8 - likely pre-renal secondary to low BP - antihypertensives on hold- will monitor closely via CMP History of Adrenal Insufficiency - IV hydrocortisone discontinued - home hydrocortisone restarted 30mg BID End Stage Dilated Cardiomyopathy, Questionable Hx of Atrial Fibrillation - continue home milrinone drip - hold home metoprolol due to hypotension - hold home bumetanide due to hypotension - continue warfarin, daily INR - Daily weights - Is and Os - cardiology consulted- appreciate recommendations Nasal Congestion, Difficulty Breathing - started patient on claritin - c/w prn duonebs for shortness of breath Chronic Back Pain - lidoderm patch - percocet 10, BID PRN only if MAP > 65 Patient seen, case discussed with, and plan approved by attending physician, Dr. Ramos. Objective - Vital Signs/Intake and Output Vital Signs (last 24 hours): Temp Pulse Resp BP Pulse Ox 98.1 F 97 H 19 107/87 96 03/12/18 12:00 03/12/18 12:00 03/12/18 12:00 03/12/18 12:00 03/12/18 06:30 Intake and Output: 03/12/18 03/12/18 06:59 18:59 Intake Total 1650 100 Output Total 0 Balance 1650 100 - Medications Medications: Current Medications Acetaminophen (Tylenol 325mg Tab) 650 mg PO Q6H PRN PRN Reason: Fever >100.4 F Albuterol/Ipratropium (Duoneb 3 Mg/0.5 Mg (3 Ml) Ud) 3 ml IH [id number] PRN PRN Reason: Shortness of Breath Last Admin: 03/12/18 11:22 Dose: 3 ml Alprazolam (Xanax) 0.25 mg PO QID PRN; Protocol PRN Reason: Anxiety Stop: 03/18/18 05:51 Last Admin: 03/11/18 10:34 Dose: 0.25 mg Amiodarone HCl (Cordarone) 200 mg PO DAILY [facility] Last Admin: 03/12/18 09:57 Dose: 200 mg Benzocaine/Menthol (Cepacol Sore Throat) 1 amber MT QID [facility] Last Admin: 03/12/18 09:57 Dose: 1 amber Bumetanide (Bumex) 1 mg PO BID [facility] Last Admin: 03/11/18 18:07 Dose: 1 mg Hydrocortisone (Cortef) 30 mg PO BID [facility] Last Admin: 03/12/18 09:57 Dose: 30 mg Milrinone Lactate/Dextrose (Primacor 20mg/100ml D5w) 100 mls @ 12.383 mls/hr IV .Q8H5M PRN; Protocol PRN Reason: TITRATE PER MD ORDER Last Admin: 03/12/18 11:13 Dose: 0.5 mcg/kg/min, 12.383 mls/hr Cefepime HCl (Maxipime 1gm) 1 gm in 100 mls @ 100 mls/hr IVPB Q12 [facility]; Protocol Last Admin: 03/12/18 09:56 Dose: 100 mls/hr Lidocaine (Lidoderm) 1 ea TD DAILY [facility] Last Admin: 03/12/18 09:57 Dose: 1 ea Loratadine (Claritin) 10 mg PO DAILY [facility] Last Admin: 03/12/18 11:14 Dose: 10 mg Metoprolol Succinate (Toprol Xl) 12.5 mg PO QPM [facility] Last Admin: 03/11/18 18:07 Dose: 12.5 mg Nystatin (Nystatin Oral Susp) 5 ml PO QID [facility] Last Admin: 03/12/18 09:57 Dose: 5 ml Oxycodone/Acetaminophen (Percocet 10/325 Mg Tab) 1 tab PO BID PRN PRN Reason: Pain, severe (8-10) Last Admin: 03/11/18 22:05 Dose: 1 tab Warfarin Sodium (Coumadin) 2 mg PO 1800 [facility]; Protocol Last Admin: 03/11/18 18:07 Dose: 2 mg - Labs Labs: 03/12/18 07:00 03/12/18 07:00 PT 27.6 SECONDS (9.4-12.5) H 03/12/18 07:00 INR 2.36 03/12/18 07:00 <Roberto Ramos - Last Filed: 03/20/18 08:54> Objective - Vital Signs/Intake and Output Vital Signs (last 24 hours): Temp Pulse Resp BP Pulse Ox 98 F 67 18 113/69 98 03/20/18 06:00 03/20/18 06:00 03/20/18 06:00 03/20/18 06:00 03/20/18 06:00 Intake and Output: 03/20/18 03/20/18 06:59 18:59 Intake Total 1249 Balance 1249 - Medications Medications: Current Medications Acetaminophen (Tylenol 325mg Tab) 650 mg PO Q6H PRN PRN Reason: Fever >100.4 F Last Admin: 03/16/18 10:20 Dose: 650 mg Acetaminophen (Tylenol 325mg Tab) 650 mg PO Q6 PRN PRN Reason: Pain, moderate (4-7) Albuterol/Ipratropium (Duoneb 3 Mg/0.5 Mg (3 Ml) Ud) 3 ml IH [id number] PRN PRN Reason: Shortness of Breath Last Admin: 03/18/18 08:23 Dose: 3 ml Alprazolam (Xanax) 0.25 mg PO QID PRN; Protocol PRN Reason: Anxiety Stop: 03/25/18 22:01 Last Admin: 03/19/18 09:25 Dose: 0.25 mg Amiodarone HCl (Cordarone) 200 mg PO DAILY [facility] Last Admin: 03/19/18 09:28 Dose: 200 mg Benzocaine/Menthol (Cepacol Sore Throat) 1 amber MT QID [facility] Last Admin: 03/19/18 21:51 Dose: 1 amber Bumetanide (Bumex) 1 mg PO BID [facility] Last Admin: 03/11/18 18:07 Dose: 1 mg Camphor/Menthol (Bengay) 0.1 gm TOP QID PRN PRN Reason: Muscle spasm Last Admin: 03/15/18 02:27 Dose: 0.1 gm Furosemide (Lasix) 40 mg PO BID [facility] Last Admin: 03/19/18 17:39 Dose: 40 mg Hydrocortisone (Cortef) 30 mg PO BID [facility] Last Admin: 03/19/18 17:39 Dose: 30 mg Milrinone Lactate/Dextrose (Primacor 20mg/100ml D5w) 100 mls @ 12.383 mls/hr IV .Q8H5M PRN; Protocol PRN Reason: TITRATE PER MD ORDER Last Admin: 03/20/18 01:22 Dose: 0.5 mcg/kg/min, 12.383 mls/hr Micafungin Sodium 100 mg/ (Sodium Chloride) 100 mls @ 100 mls/hr IV DAILY [facility]; Protocol Stop: 03/21/18 10:01 Last Admin: 03/19/18 11:28 Dose: 100 mls/hr Lidocaine (Lidoderm) 1 ea TD DAILY [facility] Last Admin: 03/19/18 09:30 Dose: 1 ea Loratadine (Claritin) 10 mg PO DAILY [facility] Last Admin: 03/19/18 09:28 Dose: 10 mg Metoprolol Succinate (Toprol Xl) 12.5 mg PO QPM [facility] Last Admin: 03/11/18 18:07 Dose: 12.5 mg Nystatin (Nystatin Oral Susp) 5 ml PO QID [facility] Last Admin: 03/19/18 21:51 Dose: 5 ml Oxycodone/Acetaminophen (Percocet 5/325 Mg Tab) 1 tab PO BID PRN PRN Reason: Pain, moderate (4-7) Stop: 03/21/18 12:36 Last Admin: 03/20/18 01:23 Dose: 1 tab Warfarin Sodium (Coumadin) 2 mg PO 1800 [facility]; Protocol Last Admin: 03/19/18 17:39 Dose: 2 mg - Labs Labs: 03/20/18 06:00 03/20/18 06:00 PT 24.9 SECONDS (9.4-12.5) H 03/20/18 06:00 INR 2.13 03/20/18 06:00 Attending/Attestation - Attestation I have personally seen and examined this patient.: Yes I have fully participated in the care of the patient.: Yes I have reviewed all pertinent clinical information, including history, physical exam and plan: Yes Notes (Text): 03/20/18 08:54 52 yo female, with a PMH of SLE, adrenal insufficiency on chronic steroids, CHF 2/2 non-ischemic cardiomyopathy EF 15%, ON HOME Milrinone infusion s/p AICD, [place] [address] Kahn, endocarditis, on heart transplant list RWJ, PFO, ASD, on Warfarin, CVA x2 w/ residual right-sided weakness, non- malignant breast calcifications B/L, PE, anxiety, depression & R breast cell ulites, was admitted yesterday morning complaining of flu-like symptom, WBC is high due to steroid, on hydrocortisone for adrenal insufficiency, no source of infection, Procalcitonin is normal .Last night had SBP of 80, creatinine has increased to 1.8 from 1.3.Holding diuretics
--- NOTE | 2018-03-12 14:40 | CP.PCM.PN ---
Subjective - Date & Time of Evaluation Date of Evaluation: 03/12/18 Time of Evaluation: 13:10 - Subjective Subjective: No fevers, starting to feel better, rhinorrhea is improving, has some pain in the mouth, cough is improving. Objective - Vital Signs/Intake and Output Vital Signs (last 24 hours): Temp Pulse Resp BP Pulse Ox 99.1 F 100 H 18 108/58 L 96 03/12/18 06:30 03/12/18 06:30 03/12/18 06:30 03/12/18 06:30 03/12/18 06:30 Intake and Output: 03/12/18 03/12/18 06:59 18:59 Intake Total 1650 Output Total 0 Balance 1650 - Medications Medications: Current Medications Acetaminophen (Tylenol 325mg Tab) 650 mg PO Q6H PRN PRN Reason: Fever >100.4 F Alprazolam (Xanax) 0.25 mg PO QID PRN; Protocol PRN Reason: Anxiety Stop: 03/18/18 05:51 Last Admin: 03/11/18 10:34 Dose: 0.25 mg Amiodarone HCl (Cordarone) 200 mg PO DAILY [facility] Last Admin: 03/11/18 10:21 Dose: 200 mg Benzocaine/Menthol (Cepacol Sore Throat) 1 amber MT QID [facility] Last Admin: 03/11/18 22:03 Dose: 1 amber Bumetanide (Bumex) 1 mg PO BID [facility] Last Admin: 03/11/18 18:07 Dose: 1 mg Hydrocortisone Sodium Succinate (Solu-Cortef) 50 mg IVP DAILY [facility] Last Admin: 03/11/18 10:21 Dose: 50 mg Milrinone Lactate/Dextrose (Primacor 20mg/100ml D5w) 100 mls @ 12.383 mls/hr IV .Q8H5M PRN; Protocol PRN Reason: TITRATE PER MD ORDER Last Admin: 03/12/18 02:01 Dose: 0.5 mcg/kg/min, 12.383 mls/hr Cefepime HCl (Maxipime 1gm) 1 gm in 100 mls @ 100 mls/hr IVPB Q12 [facility]; Protocol Last Admin: 03/11/18 22:05 Dose: 100 mls/hr Lidocaine (Lidoderm) 1 ea TD DAILY [facility] Last Admin: 03/11/18 10:22 Dose: Not Given Metoprolol Succinate (Toprol Xl) 12.5 mg PO QPM [facility] Last Admin: 03/11/18 18:07 Dose: 12.5 mg Nystatin (Nystatin Oral Susp) 5 ml PO QID [facility] Last Admin: 03/11/18 22:04 Dose: 5 ml Oxycodone/Acetaminophen (Percocet 10/325 Mg Tab) 1 tab PO BID PRN PRN Reason: Pain, severe (8-10) Last Admin: 03/11/18 22:05 Dose: 1 tab Warfarin Sodium (Coumadin) 2 mg PO 1800 [facility]; Protocol Last Admin: 03/11/18 18:07 Dose: 2 mg - Labs Labs: 03/12/18 07:00 03/11/18 08:15 PT 27.6 SECONDS (9.4-12.5) H 03/12/18 07:00 INR 2.36 03/12/18 07:00 - Constitutional Appears: No Acute Distress, Chronically Ill - Head Exam Head Exam: NORMAL INSPECTION - ENT Exam Additional comments: mild oral thrush noted on the posterior pharynx - Respiratory Exam Respiratory Exam: Decreased Breath Sounds - Cardiovascular Exam Cardiovascular Exam: +S1, +S2 - GI/Abdominal Exam GI & Abdominal Exam: Soft. absent: Tenderness Assessment and Plan - Assessment and Plan (Free Text) Plan: Assessment systemic inflammatory response syndrome, consider acute bronchitis as well as URI, no specific evidence of pneumonia oral thrush probably from inhaler use history of Ashley glabrata fungemia, suspicious to be PICC line/port-related S/P port removal; RANJEET done and did not show valve vegetations or vegetations on the AICD history of sepsis due to C. parapsilosis and C. glabrata fungemia and Enterococcus bacteremia probably from PICC line, unable to rule out endocarditis history of Sepsis due to right breast cellulitis/mastitis with purulent discharge, growing Serratia history of bilateral breast mastitis growing coagulase negative Staph and Klebsiella pneumoniae history of vaginal candidiasis SLE history of pulmonary emboli CVA asthma S/P ICD placement Plan gave a dose of IV Vancomycin and continue Cefepime and Doxycycline day 2 pending final blood cx results; reviewed CXR which did not show infiltrates will start Mycelex lozenge will continue to monitor clinically Overall prognosis is poor
[2018-03-13] MEDS ORDERED: oxyCODONE 5 mg Immediate Release Tab PO STA ×2 (00:45→05:57)
[2018-03-13] MEDS: Albuterol-Ipratrop 3 mg / 0.5 (3 ml) UD IH PRN ×3 (01:36→15:27)
[2018-03-13] MEDS: Milrinone 20mg/100ml D5W 100 ML IV PRN ×3 (02:53→19:47)
--- NOTE | 2018-03-13 06:45 | CON ---
DATE: 03/12/2018 REASON FOR DICTATION: Covering for Dr. Rm Alvarez. REASON FOR CARDIAC CONSULTATION: Patient's history of nonischemic cardiomyopathy, on milrinone, hypotension HISTORY OF PRESENT ILLNESS: This is a 52-year-old female with past medical history significant for SLE, congestive heart failure status post defibrillator, status post nonischemic cardiomyopathy, came in with complaining of flu like symptoms and hypotension, on Primacor. Denies any chest pain, shortness of breath, or any palpitation. Feeling very weak. Found to be in the ER systolic blood pressure of 70. Denies any chest pain, shortness of breath or any palpitation. PAST MEDICAL HISTORY: Significant for SLE, adrenal insufficiency, on steroid, history of congestive heart failure, nonischemic cardiomyopathy, severely decreased LV function, ejection fraction 15% to 20%, status post AICD, recently generator changed because of endocarditis, on [facility] list [facility], history of bilateral PE, anxiety disorder. Patient was seen multiple times by us when admitted before to Dr. Tariq's service. History of lupus admission, history of prior stroke, history of patent foramen ovale, history of right-sided weakness, on Coumadin, status post AICD, initially placed in 2013 in [place], recently generator changed by Dr. Kahn at [facility], history of recent fungemia in the blood, being followed by Dr. 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 PREVIOUS CARDIAC WORKUP: As follows. Patient's echocardiogram on 05/31/2016 did not show any vegetation, the ejection fraction of 15 to 20% on Primacor, mild mitral regurgitation, mild tricuspid regurgitation, mild pulmonary insufficiency. Patient had repeat echocardiography done on 09/08/2017 and that was a transesophageal echo because of suspicious of vegetation and that echo shows ejection fraction 15% and the atrial septum was intact. No evidence of atrial septal defect by color flow bubble study, partial flail anterior mitral valve leaflet, severe mitral regurgitation eccentrically directed, posteriorly directed, consistent with anterior valve leaflet pathology. There is partial flail of anterior leaflet, trace circumferential pericardial effusion, [id number] tricuspid regurgitation, no vegetation noted at that time when the AICD 09/08/2017. REVIEW OF SYSTEMS: As per HPI. CURRENT MEDICATIONS: Patient is taking at home Coumadin 2 mg daily, milrinone, metoprolol, lisinopril, hydrocortisone, history of chronic hypotension, on steroid, amiodarone. PHYSICAL EXAMINATION: VITAL SIGNS: Height of the patient 5 feet 3 inches, weight of the patient 182 pounds, body mass index 32.2 Kg/sq m, heart rate 99, blood pressure 108/87. HEENT: PERRLA. Extraocular muscles intact. NECK: Supple. No carotid bruits. No thyromegaly. CHEST: Clear to auscultation. HEART: S1 and S2 regular. ABDOMEN: Soft. EXTREMITIES: Clubbing and cyanosis negative. LABORATORY DATA: Blood workup as follows, WBC 11.9, hemoglobin 10.9, hematocrit 34.3, platelet count 161. Chemistry shows sodium 142, potassium 3.7, chloride 106, carbon dioxide 27, anion gap of 12, BUN 24, creatinine 1.8. IMPRESSION: This is a 52-year-old female with past medical history significant for nonischemic cardiomyopathy, severely decreased left ventricular function, history of endocarditis in the past, history of generator change, history of last transesophageal echocardiogram dated September 2017 by me when the patient was being followed by Dr. Tariq that shows no vegetation. Automatic implantable cardioverter defibrillator lead noted, ejection fraction of 15%, severe mitral regurgitation. RECOMMENDATIONS: Resume back medications, monitor INR. Yesterday INR was 2.36. Continue 2 mg of Coumadin. Resume all previous medications. ID followup. Follow up blood culture. Patient is at home, Primacor has been held because of low blood pressure. Once the blood pressure is restored, resume back Primacor. We will transfer care tomorrow to Dr. Rm Alvarez. We will supplement potassium 20. Though creatinine is elevated, but any arrhythmia. Thank you , for providing us the opportunity in taking care of the patient, Karan Siddiqui. Roberto Jones MD
[2018-03-13 08:49] LABS: EOS # 0.1 (0.0-0.7); EOS % 0.4 % (1.5-5.0); GRAN # 10.78 (1.4-6.5); GRAN % 79.4 % (50.0-68.0); HEMOGLOBIN 10.3 g/dL (12.0-16.0); LYMPH # 1.6 (1.2-3.4); LYMPH % 11.5 % (22.0-35.0); MEAN CELL VOLUME 81.9 fl (80.0-105.0); MEAN CORPUSCULAR HEMOGLOBIN 24.8 pg (25.0-35.0); MEAN CORPUSCULAR HGB CONC 30.3 g/dl (31.0-37.0); MEAN PLATELET VOLUME 10.1 fl (7.0-11.0); MONO # 1.2 (0.1-0.6); MONO % 8.7 % (1.0-6.0); RBC 4.15 10^6/uL (3.5-6.1); RED CELL DISTRIBUTION WIDTH 16.2 % (11.5-14.5); WHITE BLOOD COUNT 13.6 10^3/ul (4.5-11.0)
[2018-03-13 09:00] LABS: ALB/GLOB RATIO 0.9 (1.1-1.8); ALBUMIN 3.5 g/dL (3.0-4.8); ALT/SGPT 32 U/L (7-56); AST/SGOT 32 U/L (14-36); BLOOD UREA NITROGEN 28 mg/dL (7-21); CALCIUM 8.3 mg/dL (8.4-10.5); GFR NON-AFRICAN AMERICAN 53
[2018-03-13] MEDS: Nystatin 100,000 Units/ml Oral Susp 5 ml UD PO SCH ×4 (09:59→21:28)
[2018-03-13] MEDS: Lidocaine 5% Patch TD SCH (10:02)
[2018-03-13] MEDS: Benzocaine/Menthol (Cepacol) Lozenge MT SCH ×4 (10:02→21:28)
[2018-03-13] MEDS: Oxycodone/Acetaminophen 10/325 mg Tab PO PRN ×2 (10:02→21:28)
[2018-03-13] MEDS: Cefepime 1gm in NS 100ml 1 GM/100 ML BAG IVPB SCH ×2 (10:02→21:29)
--- NOTE | 2018-03-13 16:08 | PN ---
DATE: 03/13/2018 CARDIOLOGY FOLLOWUP SUBJECTIVE: The patient still complains of mild shortness of breath. PHYSICAL EXAMINATION: VITAL SIGNS: Blood pressure is 109/76, the heart rate is in the 90s. NECK: Negative JVD. LUNGS: Crackles at the bases. HEART: Reveals S1, S2. EXTREMITIES: Trace edema. LABORATORY DATA: Potassium is 4, BUN and creatinine are 28 and 1. Hemoglobin is 10.3. IMPRESSION: 1. End-stage dilated cardiomyopathy. 2. Acute systolic congestive heart failure. 3. Diabetes mellitus. 4. Anemia. PLAN: Given these findings, we will start the patient back on Lasix IV b.i.d. The patient is on IV Primacor from the heart failure program at [facility]. Rm Alvarez MD
--- NOTE | 2018-03-13 18:39 | CP.PCM.PN ---
Subjective - Date & Time of Evaluation Date of Evaluation: 03/13/18 Time of Evaluation: 18:38 - Subjective Subjective: Pt seen and examined, pt denies chest pain, dizziness, or SOB. Pt reports feeling like she has a "head cold" Objective - Vital Signs/Intake and Output Vital Signs (last 24 hours): Temp Pulse Resp BP Pulse Ox 97.8 F 83 18 124/85 95 03/13/18 17:48 03/13/18 17:48 03/13/18 17:48 03/13/18 17:48 03/13/18 06:00 Intake and Output: 03/13/18 03/13/18 06:59 18:59 Intake Total 1285 100 Balance 1285 100 - Medications Medications: Current Medications Acetaminophen (Tylenol 325mg Tab) 650 mg PO Q6H PRN PRN Reason: Fever >100.4 F Albuterol/Ipratropium (Duoneb 3 Mg/0.5 Mg (3 Ml) Ud) 3 ml IH [id number] PRN PRN Reason: Shortness of Breath Last Admin: 03/13/18 15:27 Dose: 3 ml Alprazolam (Xanax) 0.25 mg PO QID PRN; Protocol PRN Reason: Anxiety Stop: 03/18/18 05:51 Last Admin: 03/13/18 11:21 Dose: 0.25 mg Amiodarone HCl (Cordarone) 200 mg PO DAILY [facility] Last Admin: 03/13/18 10:01 Dose: 200 mg Benzocaine/Menthol (Cepacol Sore Throat) 1 amber MT QID [facility] Last Admin: 03/13/18 14:17 Dose: 1 amber Bumetanide (Bumex) 1 mg PO BID [facility] Last Admin: 03/11/18 18:07 Dose: 1 mg Clotrimazole (Mycelex Kerri) 10 mg MT 5XD [facility] Last Admin: 03/13/18 14:17 Dose: 10 mg Furosemide (Lasix) 40 mg IVP Q12 [facility] Last Admin: 03/13/18 14:17 Dose: 40 mg Hydrocortisone (Cortef) 30 mg PO BID [facility] Last Admin: 03/13/18 09:59 Dose: 30 mg Milrinone Lactate/Dextrose (Primacor 20mg/100ml D5w) 100 mls @ 12.383 mls/hr IV .Q8H5M PRN; Protocol PRN Reason: TITRATE PER MD ORDER Last Admin: 03/13/18 11:14 Dose: 0.5 mcg/kg/min, 12.383 mls/hr Cefepime HCl (Maxipime 1gm) 1 gm in 100 mls @ 100 mls/hr IVPB Q12 [facility]; Protocol Last Admin: 03/13/18 10:02 Dose: 100 mls/hr Lidocaine (Lidoderm) 1 ea TD DAILY [facility] Last Admin: 03/13/18 10:02 Dose: 1 ea Loratadine (Claritin) 10 mg PO DAILY [facility] Last Admin: 03/13/18 10:02 Dose: 10 mg Metoprolol Succinate (Toprol Xl) 12.5 mg PO QPM [facility] Last Admin: 03/11/18 18:07 Dose: 12.5 mg Nystatin (Nystatin Oral Susp) 5 ml PO QID [facility] Last Admin: 03/13/18 14:17 Dose: 5 ml Oxycodone/Acetaminophen (Percocet 10/325 Mg Tab) 1 tab PO BID PRN PRN Reason: Pain, severe (8-10) Last Admin: 03/13/18 10:02 Dose: 1 tab Warfarin Sodium (Coumadin) 2 mg PO 1800 [facility]; Protocol Last Admin: 03/12/18 17:59 Dose: 2 mg - Labs Labs: 03/13/18 08:30 03/13/18 08:30 PT 27.6 SECONDS (9.4-12.5) H 03/12/18 07:00 INR 2.36 03/12/18 07:00 - Constitutional Appears: No Acute Distress - Head Exam Head Exam: ATRAUMATIC, NORMOCEPHALIC - Eye Exam Eye Exam: EOMI - ENT Exam ENT Exam: Mucous Membranes Moist - Respiratory Exam Respiratory Exam: Clear to Ausculation Bilateral, NORMAL BREATHING PATTERN - Cardiovascular Exam Cardiovascular Exam: REGULAR RHYTHM - GI/Abdominal Exam GI & Abdominal Exam: Soft, Normal Bowel Sounds Assessment and Plan - Assessment and Plan (Free Text) Assessment: Pt is a 52yo female, with a PMH of SLE, adrenal insufficiency on chronic steroids, CHF 2/2 non-ischemic cardiomyopathy EF 15% s/p AICD, [place] [address] Kahn, endocarditis, on heart transplant list RWJ, PFO, ASD, on Warfarin, CVA x2 w/ residual right-sided weakness, non-malignant breast calcifications B/L, PE, anxiety, depression & R breast cellulites, who was admitted for evaluation and treatment of flu-like symptoms, weakness and body aches. Plan: Upper Respiratory Infection - viral vs bacterial vs Allergic Rhinitis - Flu negative - s/p vanc/ zosyn in ED - procalcitonin low- will discuss with ID for cefepime management - will transition pt to PO antibiotics in preparation for discharge - ID consulted- appreciate recommendations Acute Kidney Injury - creatinine increased to 1.1 - likely pre-renal secondary to low BP - antihypertensives on hold- will monitor closely via CMP History of Adrenal Insufficiency - home hydrocortisone restarted 30mg BID End Stage Dilated Cardiomyopathy, Questionable Hx of Atrial Fibrillation - continue home milrinone drip - hold home metoprololl and bumetanide due to hypotension - continue warfarin - daily INR - cardiology consulted Nasal Congestion, Difficulty Breathing - claritin - prn duonebs Chronic Back Pain - lidoderm patch - percocet 10, BID PRN only if MAP > 65 Pt seen, examined, assessment and plan discussed with Dr Indira Simon PGY1
--- NOTE | 2018-03-13 18:51 | CP.PCM.PN ---
Subjective - Date & Time of Evaluation Date of Evaluation: 03/13/18 Time of Evaluation: 10:00 - Subjective Subjective: Patient is feeling a little better, no fevers, not in distress, no cough. Objective - Vital Signs/Intake and Output Vital Signs (last 24 hours): Temp Pulse Resp BP Pulse Ox 97.7 F 83 18 109/72 95 03/13/18 12:00 03/13/18 14:00 03/13/18 12:00 03/13/18 14:17 03/13/18 06:00 Intake and Output: 03/13/18 03/13/18 06:59 18:59 Intake Total 1285 100 Balance 1285 100 - Medications Medications: Current Medications Acetaminophen (Tylenol 325mg Tab) 650 mg PO Q6H PRN PRN Reason: Fever >100.4 F Albuterol/Ipratropium (Duoneb 3 Mg/0.5 Mg (3 Ml) Ud) 3 ml IH [id number] PRN PRN Reason: Shortness of Breath Last Admin: 03/13/18 15:27 Dose: 3 ml Alprazolam (Xanax) 0.25 mg PO QID PRN; Protocol PRN Reason: Anxiety Stop: 03/18/18 05:51 Last Admin: 03/13/18 11:21 Dose: 0.25 mg Amiodarone HCl (Cordarone) 200 mg PO DAILY [facility] Last Admin: 03/13/18 10:01 Dose: 200 mg Benzocaine/Menthol (Cepacol Sore Throat) 1 amber MT QID [facility] Last Admin: 03/13/18 14:17 Dose: 1 amber Bumetanide (Bumex) 1 mg PO BID [facility] Last Admin: 03/11/18 18:07 Dose: 1 mg Clotrimazole (Mycelex Kerri) 10 mg MT 5XD [facility] Last Admin: 03/13/18 14:17 Dose: 10 mg Furosemide (Lasix) 40 mg IVP Q12 [facility] Last Admin: 03/13/18 14:17 Dose: 40 mg Hydrocortisone (Cortef) 30 mg PO BID [facility] Last Admin: 03/13/18 09:59 Dose: 30 mg Milrinone Lactate/Dextrose (Primacor 20mg/100ml D5w) 100 mls @ 12.383 mls/hr IV .Q8H5M PRN; Protocol PRN Reason: TITRATE PER MD ORDER Last Admin: 03/13/18 11:14 Dose: 0.5 mcg/kg/min, 12.383 mls/hr Cefepime HCl (Maxipime 1gm) 1 gm in 100 mls @ 100 mls/hr IVPB Q12 [facility]; Protocol Last Admin: 03/13/18 10:02 Dose: 100 mls/hr Lidocaine (Lidoderm) 1 ea TD DAILY [facility] Last Admin: 03/13/18 10:02 Dose: 1 ea Loratadine (Claritin) 10 mg PO DAILY [facility] Last Admin: 03/13/18 10:02 Dose: 10 mg Metoprolol Succinate (Toprol Xl) 12.5 mg PO QPM [facility] Last Admin: 03/11/18 18:07 Dose: 12.5 mg Nystatin (Nystatin Oral Susp) 5 ml PO QID [facility] Last Admin: 03/13/18 14:17 Dose: 5 ml Oxycodone/Acetaminophen (Percocet 10/325 Mg Tab) 1 tab PO BID PRN PRN Reason: Pain, severe (8-10) Last Admin: 03/13/18 10:02 Dose: 1 tab Warfarin Sodium (Coumadin) 2 mg PO 1800 [facility]; Protocol Last Admin: 03/12/18 17:59 Dose: 2 mg - Labs Labs: 03/13/18 08:30 03/13/18 08:30 PT 27.6 SECONDS (9.4-12.5) H 03/12/18 07:00 INR 2.36 03/12/18 07:00 - Constitutional Appears: No Acute Distress, Chronically Ill - ENT Exam ENT Exam: Mucous Membranes Moist Additional comments: oral thrush slowly improving - Neck Exam Neck Exam: absent: Meningismus - Respiratory Exam Respiratory Exam: Decreased Breath Sounds - Cardiovascular Exam Cardiovascular Exam: +S1, +S2 - GI/Abdominal Exam GI & Abdominal Exam: Soft. absent: Tenderness Assessment and Plan - Assessment and Plan (Free Text) Plan: Assessment sepsis due to Candidemia, R/O due to line infection, R/O ICD infection, acute bronchitis as well as URI, no specific evidence of pneumonia oral thrush probably from inhaler use history of Ashley glabrata fungemia, suspicious to be PICC line/port-related S/P port removal; RANJEET done and did not show valve vegetations or vegetations on the AICD history of sepsis due to C. parapsilosis and C. glabrata fungemia and E nterococcus bacteremia probably from PICC line, unable to rule out endocarditis history of Sepsis due to right breast cellulitis/mastitis with purulent discharge, growing Serratia history of bilateral breast mastitis growing coagulase negative Staph and Klebsiella pneumoniae history of vaginal candidiasis SLE history of pulmonary emboli CVA asthma S/P ICD placement Plan continue Cefepime and Doxycycline day 4; reviewed CXR which did not show infiltrates will start Mycamine and repeat blood cx; will get 2D echo continue Mycelex lozenge will continue to monitor clinically Overall prognosis is poor
[2018-03-14] MEDS ORDERED: DiphenhydrAMINE 12.5 mg/5 ml LIQ UD (5 ml) PO STA (01:52)
[2018-03-14] MEDS ORDERED: DiphenhydrAMINE 50 mg/ml Inj IVP STA ×2 (02:02→05:29)
[2018-03-14] MEDS: Milrinone 20mg/100ml D5W 100 ML IV PRN ×3 (03:43→21:28)
[2018-03-14 07:22] LABS: EOS % 0.1 % (1.5-5.0); GRAN # 7.27 (1.4-6.5); GRAN % 80.4 % (50.0-68.0); HEMOGLOBIN 11.5 g/dL (12.0-16.0); LYMPH # 1.3 (1.2-3.4); LYMPH % 14.3 % (22.0-35.0); MEAN CELL VOLUME 81.5 fl (80.0-105.0); MEAN CORPUSCULAR HGB CONC 30.7 g/dl (31.0-37.0); MEAN PLATELET VOLUME 11.3 fl (7.0-11.0); MONO # 0.5 (0.1-0.6); MONO % 5.2 % (1.0-6.0); RBC 4.6 10^6/uL (3.5-6.1); RED CELL DISTRIBUTION WIDTH 16.2 % (11.5-14.5)
[2018-03-14 07:45] LABS: ALB/GLOB RATIO 0.9 (1.1-1.8); ALBUMIN 3.9 g/dL (3.0-4.8); ALT/SGPT 31 U/L (7-56); AST/SGOT 27 U/L (14-36); BLOOD UREA NITROGEN 25 mg/dL (7-21); CALCIUM 8.9 mg/dL (8.4-10.5); GFR NON-AFRICAN AMERICAN > 60
[2018-03-14] MEDS: Albuterol-Ipratrop 3 mg / 0.5 (3 ml) UD IH PRN (07:52)
[2018-03-14 08:25] LABS: INR 2.46; PROTHROMBIN TIME 28.8 SECONDS (9.4-12.5)
[2018-03-14] MEDS: Benzocaine/Menthol (Cepacol) Lozenge MT SCH ×4 (10:04→21:28)
[2018-03-14] MEDS: Nystatin 100,000 Units/ml Oral Susp 5 ml UD PO SCH ×4 (10:05→21:28)
[2018-03-14] MEDS: Micafungin 100 MG in Sodium Chloride 0.9% 100 ML IV SCH (10:11)
[2018-03-14] MEDS: Lidocaine 5% Patch TD SCH (10:12)
--- NOTE | 2018-03-14 13:09 | PN ---
DATE: 03/14/2018 CARDIOLOGY FOLLOWUP SUBJECTIVE: The patient's edema is much improved with the IV Lasix. However, the patient is complaining of diffuse pruritus. PHYSICAL EXAMINATION: VITAL SIGNS: Blood pressure is 128/77, the heart rate is in the 80s. NECK: Negative JVD. LUNGS: Clear to auscultation. HEART: Reveals S1, S2. EXTREMITIES: Resolution of edema. LABORATORY DATA: BUN and creatinine are unremarkable. Potassium is 4.5, hemoglobin is 11.1. IMPRESSION: 1. Improvement of congestive heart failure. 2. End-stage dilated cardiomyopathy. 3. History of lupus erythematosus. 4. Dyspnea is resolved. 5. Pedal edema. 6. Diffuse pruritus. PLAN: Given these findings, I will need to discuss with ID about antibiotic choices. The only drug difference is that she has been on that might explain her pruritus is the antibiotics. ID may need to change her medications. Rm Alvarez MD
[2018-03-14] MEDS ORDERED: POLYETHYLENE GLYCOL 3350 17 GM/Dose PACKET PO ONE (13:27)
--- NOTE | 2018-03-14 16:18 | CP.PCM.PN ---
Subjective - Date & Time of Evaluation Date of Evaluation: 03/14/18 Time of Evaluation: 11:00 - Subjective Subjective: Had some itching over her body, no more nasal congestion, no fevers, has a little more energy. Objective - Vital Signs/Intake and Output Vital Signs (last 24 hours): Temp Pulse Resp BP Pulse Ox 97.4 F L 80 20 128/77 97 03/14/18 06:00 03/14/18 06:00 03/14/18 06:00 03/14/18 06:00 03/14/18 06:00 Intake and Output: 03/14/18 03/14/18 06:59 18:59 Intake Total 1129 Output Total 3 Balance 1126 - Medications Medications: Current Medications Acetaminophen (Tylenol 325mg Tab) 650 mg PO Q6H PRN PRN Reason: Fever >100.4 F Albuterol/Ipratropium (Duoneb 3 Mg/0.5 Mg (3 Ml) Ud) 3 ml IH [id number] PRN PRN Reason: Shortness of Breath Last Admin: 03/14/18 07:52 Dose: 3 ml Alprazolam (Xanax) 0.25 mg PO QID PRN; Protocol PRN Reason: Anxiety Stop: 03/18/18 05:51 Last Admin: 03/13/18 21:28 Dose: 0.25 mg Amiodarone HCl (Cordarone) 200 mg PO DAILY [facility] Last Admin: 03/13/18 10:01 Dose: 200 mg Benzocaine/Menthol (Cepacol Sore Throat) 1 amber MT QID [facility] Last Admin: 03/13/18 21:28 Dose: 1 amber Bumetanide (Bumex) 1 mg PO BID [facility] Last Admin: 03/11/18 18:07 Dose: 1 mg Clotrimazole (Mycelex Kerri) 10 mg MT 5XD [facility] Last Admin: 03/14/18 05:27 Dose: 10 mg Furosemide (Lasix) 40 mg IVP 0600,1800 [facility] Last Admin: 03/14/18 05:28 Dose: 40 mg Hydrocortisone (Cortef) 30 mg PO BID [facility] Last Admin: 03/13/18 18:48 Dose: 30 mg Milrinone Lactate/Dextrose (Primacor 20mg/100ml D5w) 100 mls @ 12.383 mls/hr IV .Q8H5M PRN; Protocol PRN Reason: TITRATE PER MD ORDER Last Admin: 03/14/18 03:43 Dose: 0.5 mcg/kg/min, 12.383 mls/hr Micafungin Sodium 100 mg/ (Sodium Chloride) 100 mls @ 100 mls/hr IV DAILY [facility]; Protocol Stop: 03/21/18 10:01 Lidocaine (Lidoderm) 1 ea TD DAILY [facility] Last Admin: 03/13/18 10:02 Dose: 1 ea Loratadine (Claritin) 10 mg PO DAILY [facility] Last Admin: 03/13/18 10:02 Dose: 10 mg Metoprolol Succinate (Toprol Xl) 12.5 mg PO QPM [facility] Last Admin: 03/11/18 18:07 Dose: 12.5 mg Nystatin (Nystatin Oral Susp) 5 ml PO QID [facility] Last Admin: 03/13/18 21:28 Dose: 5 ml Oxycodone/Acetaminophen (Percocet 10/325 Mg Tab) 1 tab PO BID PRN PRN Reason: Pain, severe (8-10) Last Admin: 03/13/18 21:28 Dose: 1 tab Warfarin Sodium (Coumadin) 2 mg PO 1800 [facility]; Protocol Last Admin: 03/13/18 18:48 Dose: 2 mg - Labs Labs: 03/14/18 06:45 03/14/18 06:45 PT 28.8 SECONDS (9.4-12.5) H 03/14/18 08:00 INR 2.46 03/14/18 08:00 - Constitutional Appears: No Acute Distress, Chronically Ill - Head Exam Head Exam: NORMAL INSPECTION - Respiratory Exam Respiratory Exam: Decreased Breath Sounds - Cardiovascular Exam Cardiovascular Exam: +S1, +S2 - GI/Abdominal Exam GI & Abdominal Exam: Soft. absent: Tenderness Assessment and Plan - Assessment and Plan (Free Text) Plan: Assessment sepsis due to Candidemia, R/O due to line infection, R/O ICD infection, acute bronchitis as well as URI, no specific evidence of pneumonia oral thrush probably from inhaler use history of Ashley glabrata fungemia, suspicious to be PICC line/port-related S/P port removal; RANJEET done and did not show valve vegetations or vegetations on the AICD history of sepsis due to C. parapsilosis and C. glabrata fungemia and Enterococcus bacteremia probably from PICC line, unable to rule out endocarditis history of Sepsis due to right breast cellulitis/mastitis with purulent discharge, growing Serratia history of bilateral breast mastitis growing coagulase negative Staph and Klebsiella pneumoniae history of vaginal candidiasis SLE history of pulmonary emboli CVA asthma S/P ICD placement Plan has had 4 days of Cefepime and Doxycycline - we can discontinue and observe; reviewed CXR which did not show infiltrates continue Mycamine and follow up repeat blood cx; follow up 2D echo as well continue Mycelex lozenge will continue to monitor clinically Overall prognosis is poor
--- NOTE | 2018-03-14 17:40 | CP.PCM.PN ---
Subjective - Date & Time of Evaluation Date of Evaluation: 03/14/18 Time of Evaluation: 17:37 - Subjective Subjective: Pt seen and examined, pt reports pruritis which was relieved at 2am this morning with Benadryl. Objective - Vital Signs/Intake and Output Vital Signs (last 24 hours): Temp Pulse Resp BP Pulse Ox 97.7 F 81 18 104/67 97 03/14/18 12:00 03/14/18 14:00 03/14/18 12:00 03/14/18 12:00 03/14/18 06:00 Intake and Output: 03/14/18 03/14/18 06:59 18:59 Intake Total 1129 100 Output Total 3 Balance 1126 100 - Medications Medications: Current Medications Acetaminophen (Tylenol 325mg Tab) 650 mg PO Q6H PRN PRN Reason: Fever >100.4 F Albuterol/Ipratropium (Duoneb 3 Mg/0.5 Mg (3 Ml) Ud) 3 ml IH [id number] PRN PRN Reason: Shortness of Breath Last Admin: 03/14/18 07:52 Dose: 3 ml Alprazolam (Xanax) 0.25 mg PO QID PRN; Protocol PRN Reason: Anxiety Stop: 03/18/18 05:51 Last Admin: 03/13/18 21:28 Dose: 0.25 mg Amiodarone HCl (Cordarone) 200 mg PO DAILY [facility] Last Admin: 03/14/18 10:10 Dose: 200 mg Benzocaine/Menthol (Cepacol Sore Throat) 1 amber MT QID [facility] Last Admin: 03/14/18 13:56 Dose: 1 amber Bumetanide (Bumex) 1 mg PO BID [facility] Last Admin: 03/11/18 18:07 Dose: 1 mg Clotrimazole (Mycelex Kerri) 10 mg MT 5XD [facility] Last Admin: 03/14/18 13:58 Dose: 10 mg Furosemide (Lasix) 40 mg IVP 0600,1800 [facility] Last Admin: 03/14/18 05:28 Dose: 40 mg Hydrocortisone (Cortef) 30 mg PO BID [facility] Last Admin: 03/14/18 10:11 Dose: 30 mg Milrinone Lactate/Dextrose (Primacor 20mg/100ml D5w) 100 mls @ 12.383 mls/hr IV .Q8H5M PRN; Protocol PRN Reason: TITRATE PER MD ORDER Last Admin: 03/14/18 14:04 Dose: 0.5 mcg/kg/min, 12.383 mls/hr Micafungin Sodium 100 mg/ (Sodium Chloride) 100 mls @ 100 mls/hr IV DAILY [facility]; Protocol Stop: 03/21/18 10:01 Last Admin: 03/14/18 10:11 Dose: 100 mls/hr Lidocaine (Lidoderm) 1 ea TD DAILY [facility] Last Admin: 03/14/18 10:12 Dose: 1 ea Loratadine (Claritin) 10 mg PO DAILY [facility] Last Admin: 03/14/18 10:05 Dose: 10 mg Metoprolol Succinate (Toprol Xl) 12.5 mg PO QPM [facility] Last Admin: 03/11/18 18:07 Dose: 12.5 mg Nystatin (Nystatin Oral Susp) 5 ml PO QID [facility] Last Admin: 03/14/18 13:58 Dose: 5 ml Oxycodone/Acetaminophen (Percocet 10/325 Mg Tab) 1 tab PO BID PRN PRN Reason: Pain, severe (8-10) Last Admin: 03/13/18 21:28 Dose: 1 tab Warfarin Sodium (Coumadin) 2 mg PO 1800 [facility]; Protocol Last Admin: 03/13/18 18:48 Dose: 2 mg - Labs Labs: 03/14/18 06:45 03/14/18 06:45 PT 28.8 SECONDS (9.4-12.5) H 03/14/18 08:00 INR 2.46 03/14/18 08:00 - Constitutional Appears: No Acute Distress - ENT Exam ENT Exam: Mucous Membranes Moist - Respiratory Exam Respiratory Exam: Clear to Ausculation Bilateral, NORMAL BREATHING PATTERN - Cardiovascular Exam Cardiovascular Exam: RRR - GI/Abdominal Exam GI & Abdominal Exam: Soft, Tenderness - Neurological Exam Neurological Exam: Oriented x3 - Skin Skin Exam: Dry, Normal Color, Warm Assessment and Plan - Assessment and Plan (Free Text) Assessment: Pt is a 52yo female, with a PMH of SLE, adrenal insufficiency on chronic steroids, CHF 2/2 non-ischemic cardiomyopathy EF 15% s/p AICD, recent [place] [address] Kahn, endocarditis, on heart transplant list RWJ, PFO, ASD, on Warfarin, CVA x2 w/ residual right-sided weakness, non-malignant breast calcifications B/L, PE, anxiety, depression & R breast cellulites, who was admitted for evaluation and treatment of flu-like symptoms, weakness and body aches. Plan: Fungemia - continue micafungin - repeat blood cultures - follow up ECHO - wait to see if cultures grow albicans vs glabrata, to determine appropriate antifungal agent - ID following Upper Respiratory Infection - viral vs bacterial vs Allergic Rhinitis - Flu negative - s/p vanc/ zosyn in ED - continue cefepime Acute Kidney Injury - creatinine increased to 0.9 - antihypertensives on hold- will monitor closely via CMP History of Adrenal Insufficiency - home hydrocortisone restarted 30mg BID End Stage Dilated Cardiomyopathy, Questionable Hx of Atrial Fibrillation - continue home milrinone drip - hold home metoprolol and bumetanide due to hypotension - continue warfarin, daily INR 2.46 - cardiology consulted Nasal Congestion, Difficulty Breathing - claritin - prn duonebs Chronic Back Pain - lidoderm patch - percocet 10, BID PRN only if MAP > 65 Pt seen, examined, assessment and plan discussed with Dr Indira Simon PGY1
[2018-03-14] MEDS: Oxycodone/Acetaminophen 10/325 mg Tab PO PRN (21:29)
[2018-03-15] MEDS ORDERED: Menthol/Methyl Salicylate Ointment(1 oz) TOP PRN (02:03)
--- NOTE | 2018-03-15 02:13 | CP.PCM.PN ---
Subjective - Date & Time of Evaluation Date of Evaluation: 03/15/18 Time of Evaluation: 02:06 - Subjective Subjective: PGY-[address] Pimentel CC: L calf pain Pt states that L calf pain started this evening. She had unilateral L leg swelling after given benadryl for suspected rash reaction with mycafungin this AM. Pt has a hx Hx EF 13 with PPM and AICD, Hx DVT/PE, lupus, on warfarin, and adrenal insufficiency. She is here for URI with on stress dose steroid found to have fungemia. VS stable NAD EOMI, non-icteric CTA b/1 regular s1 s2 murmur DP +1 b/l, cap refill < 2sec A/P L leg pain r/o DVT, possible muscular origin - INR therapeutic - LLE US doppler in AM - Bangay for now. Will consider stronger NSAID if bangay not helpful. Her Cre 1.8 a couple of days ago - Pt is on opioid but it is more for neuro pain Objective - Vital Signs/Intake and Output Vital Signs (last 24 hours): Temp Pulse Resp BP Pulse Ox 97.2 F L 68 18 125/88 98 03/15/18 00:01 03/15/18 00:01 03/15/18 00:01 03/15/18 00:01 03/15/18 00:01 Intake and Output: 03/14/18 03/15/18 18:59 06:59 Intake Total 580 349 Balance 580 349 - Medications Medications: Current Medications Acetaminophen (Tylenol 325mg Tab) 650 mg PO Q6H PRN PRN Reason: Fever >100.4 F Albuterol/Ipratropium (Duoneb 3 Mg/0.5 Mg (3 Ml) Ud) 3 ml IH Q4DIDRS PRN PRN Reason: Shortness of Breath Last Admin: 03/14/18 07:52 Dose: 3 ml Alprazolam (Xanax) 0.25 mg PO QID PRN; Protocol PRN Reason: Anxiety Stop: 03/18/18 05:51 Last Admin: 03/13/18 21:28 Dose: 0.25 mg Amiodarone HCl (Cordarone) 200 mg PO DAILY [facility] Last Admin: 03/14/18 10:10 Dose: 200 mg Benzocaine/Menthol (Cepacol Sore Throat) 1 amber MT QID [facility] Last Admin: 10/09/18 21:28 Dose: 1 amber Bumetanide (Bumex) 1 mg PO BID [facility] Last Admin: 03/11/18 18:07 Dose: 1 mg Camphor/Menthol (Bengay) 0.1 gm TOP QID PRN PRN Reason: Muscle spasm Clotrimazole (Mycelex Kerri) 10 mg MT 5XD [facility] Last Admin: 03/14/18 21:28 Dose: 10 mg Furosemide (Lasix) 40 mg IVP 0600,1800 [facility] Last Admin: 03/14/18 17:52 Dose: 40 mg Hydrocortisone (Cortef) 30 mg PO BID [facility] Last Admin: 03/14/18 17:51 Dose: 30 mg Milrinone Lactate/Dextrose (Primacor 20mg/100ml D5w) 100 mls @ 12.383 mls/hr IV .Q8H5M PRN; Protocol PRN Reason: TITRATE PER MD ORDER Last Admin: 03/14/18 21:28 Dose: 0.5 mcg/kg/min, 12.383 mls/hr Micafungin Sodium 100 mg/ (Sodium Chloride) 100 mls @ 100 mls/hr IV DAILY [facility]; Protocol Stop: 03/21/18 10:01 Last Admin: 03/14/18 10:11 Dose: 100 mls/hr Lidocaine (Lidoderm) 1 ea TD DAILY [facility] Last Admin: 03/14/18 10:12 Dose: 1 ea Loratadine (Claritin) 10 mg PO DAILY [facility] Last Admin: 03/14/18 10:05 Dose: 10 mg Metoprolol Succinate (Toprol Xl) 12.5 mg PO QPM [facility] Last Admin: 03/11/18 18:07 Dose: 12.5 mg Nystatin (Nystatin Oral Susp) 5 ml PO QID [facility] Last Admin: 03/14/18 21:28 Dose: 5 ml Oxycodone/Acetaminophen (Percocet 10/325 Mg Tab) 1 tab PO BID PRN PRN Reason: Pain, severe (8-10) Last Admin: 03/14/18 21:29 Dose: 1 tab Warfarin Sodium (Coumadin) 2 mg PO 1800 [facility]; Protocol Last Admin: 03/14/18 17:55 Dose: 2 mg - Labs Labs: 03/14/18 06:45 03/14/18 06:45 PT 28.8 SECONDS (9.4-12.5) H 03/14/18 08:00 INR 2.46 03/14/18 08:00
[2018-03-15] MEDS: Milrinone 20mg/100ml D5W 100 ML IV PRN ×2 (06:15→18:08)
[2018-03-15 07:17] LABS: INR 2.49; PROTHROMBIN TIME 29.2 SECONDS (9.4-12.5)
[2018-03-15 07:17] LABS: BASO # 0.01 K/mm3 (0.0-2.0); BASO % 0.1 % (0.0-3.0); EOS % 0.2 % (1.5-5.0); GRAN # 5.9 (1.4-6.5); GRAN % 64.5 % (50.0-68.0); HEMOGLOBIN 11.5 g/dL (12.0-16.0); LYMPH # 2.5 (1.2-3.4); MEAN CELL VOLUME 81.8 fl (80.0-105.0); MEAN CORPUSCULAR HEMOGLOBIN 24.6 pg (25.0-35.0); MEAN CORPUSCULAR HGB CONC 30.1 g/dl (31.0-37.0); MEAN PLATELET VOLUME 11.1 fl (7.0-11.0); MONO # 0.8 (0.1-0.6); MONO % 8.2 % (1.0-6.0); RBC 4.67 10^6/uL (3.5-6.1); RED CELL DISTRIBUTION WIDTH 16.4 % (11.5-14.5); WHITE BLOOD COUNT 9.2 10^3/ul (4.5-11.0)
[2018-03-15 07:18] LABS: ALB/GLOB RATIO 0.9 (1.1-1.8); ALBUMIN 4.1 g/dL (3.0-4.8); ALT/SGPT 25 U/L (7-56); AST/SGOT 29 U/L (14-36); BLOOD UREA NITROGEN 24 mg/dL (7-21); CALCIUM 8.8 mg/dL (8.4-10.5); GFR NON-AFRICAN AMERICAN > 60
[2018-03-15] MEDS: Albuterol-Ipratrop 3 mg / 0.5 (3 ml) UD IH PRN ×2 (07:45→15:00)
--- NOTE | 2018-03-15 08:34 | PN ---
DATE: 03/15/2018 CARDIOLOGY FOLLOWUP SUBJECTIVE: The patient's pruritus is much improved, off the antibiotics. PHYSICAL EXAMINATION: VITAL SIGNS: Blood pressure 129/87, heart rate in the 90s. NECK: Negative JVD. LUNGS: Without rales. HEART: S1 and S2. EXTREMITIES: Without edema. LABORATORY DATA: Hemoglobin is 11.5. Chemistries: BUN and creatinine are unremarkable. IMPRESSION: 1. Resolution of congestive heart failure. 2. End-stage dilated cardiomyopathy. 3. Questionable sepsis. 4. Diabetes mellitus. 5. Pedal edema which is resolved. PLAN: Given these findings, the patient is being worked up for an infection. We will need to rule out a contaminant given the fact that the patient clinically is looking well. We would suggest ID about repeating blood cultures before considering recommendations for drastic measures. Rm Alvarez MD
[2018-03-15] MEDS: Micafungin 100 MG in Sodium Chloride 0.9% 100 ML IV SCH (10:19)
[2018-03-15] MEDS: Nystatin 100,000 Units/ml Oral Susp 5 ml UD PO SCH ×4 (10:56→21:39)
[2018-03-15] MEDS: Benzocaine/Menthol (Cepacol) Lozenge MT SCH ×6 (10:56→21:39)
[2018-03-15] MEDS: Lidocaine 5% Patch TD SCH (10:57)
--- NOTE | 2018-03-15 11:18 | US ---
PROCEDURE: Left lower extremity venous US HISTORY: Leg pain and swelling. Evaluate for DVT. PHYSICIAN(S): Rm Cueto MD. TECHNIQUE: Duplex sonography and color-flow Doppler with graded compression were used to evaluate the deep venous system of the left lower extremity. FINDINGS: The visualized deep venous system of the left lower extremity is sonographically normal and compressible. Normal wave forms and augmentation are seen. There is no sonographic evidence for deep venous thrombosis in the visualized segments of the left lower extremity. IMPRESSION: 1. No sonographic evidence for deep venous thrombosis in the visualized segments of the left lower extremity.
--- NOTE | 2018-03-15 12:59 | CP.PCM.PN ---
Subjective - Date & Time of Evaluation Date of Evaluation: 03/15/18 Time of Evaluation: 11:20 - Subjective Subjective: Had itching all over the body, but a little better with the Benadryl, no fevers. Wants to go home but I explained that she still has a blood-stream infection. Objective - Vital Signs/Intake and Output Vital Signs (last 24 hours): Temp Pulse Resp BP Pulse Ox 97.8 F 96 H 20 129/87 97 03/15/18 06:00 03/15/18 06:15 03/15/18 06:00 03/15/18 06:15 03/15/18 06:00 Intake and Output: 03/15/18 03/15/18 06:59 18:59 Intake Total 1238 Balance 1238 - Medications Medications: Current Medications Acetaminophen (Tylenol 325mg Tab) 650 mg PO Q6H PRN PRN Reason: Fever >100.4 F Albuterol/Ipratropium (Duoneb 3 Mg/0.5 Mg (3 Ml) Ud) 3 ml IH [id number] PRN PRN Reason: Shortness of Breath Last Admin: 03/14/18 07:52 Dose: 3 ml Alprazolam (Xanax) 0.25 mg PO QID PRN; Protocol PRN Reason: Anxiety Stop: 03/18/18 05:51 Last Admin: 03/13/18 21:28 Dose: 0.25 mg Amiodarone HCl (Cordarone) 200 mg PO DAILY [facility] Last Admin: 03/14/18 10:10 Dose: 200 mg Benzocaine/Menthol (Cepacol Sore Throat) 1 amber MT QID [facility] Last Admin: 03/14/18 21:28 Dose: 1 amber Bumetanide (Bumex) 1 mg PO BID [facility] Last Admin: 03/11/18 18:07 Dose: 1 mg Camphor/Menthol (Bengay) 0.1 gm TOP QID PRN PRN Reason: Muscle spasm Last Admin: 03/15/18 02:27 Dose: 0.1 gm Clotrimazole (Mycelex Kerri) 10 mg MT 5XD [facility] Last Admin: 03/15/18 05:33 Dose: 10 mg Furosemide (Lasix) 40 mg IVP 0600,1800 [facility] Last Admin: 03/15/18 05:33 Dose: 40 mg Hydrocortisone (Cortef) 30 mg PO BID [facility] Last Admin: 03/14/18 17:51 Dose: 30 mg Milrinone Lactate/Dextrose (Primacor 20mg/100ml D5w) 100 mls @ 12.383 mls/hr IV .Q8H5M PRN; Protocol PRN Reason: TITRATE PER MD ORDER Last Admin: 03/15/18 06:15 Dose: 0.5 mcg/kg/min, 12.383 mls/hr Micafungin Sodium 100 mg/ (Sodium Chloride) 100 mls @ 100 mls/hr IV DAILY [facility]; Protocol Stop: 03/21/18 10:01 Last Admin: 03/14/18 10:11 Dose: 100 mls/hr Lidocaine (Lidoderm) 1 ea TD DAILY [facility] Last Admin: 03/14/18 10:12 Dose: 1 ea Loratadine (Claritin) 10 mg PO DAILY [facility] Last Admin: 03/14/18 10:05 Dose: 10 mg Metoprolol Succinate (Toprol Xl) 12.5 mg PO QPM [facility] Last Admin: 03/11/18 18:07 Dose: 12.5 mg Nystatin (Nystatin Oral Susp) 5 ml PO QID [facility] Last Admin: 03/14/18 21:28 Dose: 5 ml Oxycodone/Acetaminophen (Percocet 10/325 Mg Tab) 1 tab PO BID PRN PRN Reason: Pain, severe (8-10) Last Admin: 03/14/18 21:29 Dose: 1 tab Warfarin Sodium (Coumadin) 2 mg PO 1800 [facility]; Protocol Last Admin: 03/14/18 17:55 Dose: 2 mg - Labs Labs: 03/14/18 06:45 03/14/18 06:45 PT 28.8 SECONDS (9.4-12.5) H 03/14/18 08:00 INR 2.46 03/14/18 08:00 - Constitutional Appears: Chronically Ill - Neck Exam Neck Exam: absent: Meningismus - Respiratory Exam Respiratory Exam: Decreased Breath Sounds - Cardiovascular Exam Cardiovascular Exam: +S1, +S2 - GI/Abdominal Exam GI & Abdominal Exam: Soft. absent: Tenderness - Extremities Exam Additional comments: right arm PICC line in place Assessment and Plan - Assessment and Plan (Free Text) Plan: Assessment sepsis due to Ashley glabrata fungemia, R/O due to line infection, R/O ICD infection, acute bronchitis as well as URI, no specific evidence of pneumonia oral thrush probably from inhaler use history of Ashley glabrata fungemia, suspicious to be PICC line/port-related S/P port removal; RANJEET done and did not show valve vegetations or vegetations on the AICD history of sepsis due to C. parapsilosis and C. glabrata fungemia and Enterococcus bacteremia probably from PICC line, unable to rule out endocarditis history of Sepsis due to right breast cellulitis/mastitis with purulent discharge, growing Serratia history of bilateral breast mastitis growing coagulase negative Staph and Klebsiella pneumoniae history of vaginal candidiasis SLE history of pulmonary emboli CVA asthma S/P ICD placement Plan has had 4 days of Cefepime and Doxycycline; reviewed CXR which did not show infiltrates continue Mycamine (but held today to see if this is the cause of pruritus) and follow up repeat blood cx; follow up 2D echo as well - likely the PICC line has to be removed and place a new PICC line when blood cx are negative; C. glabrata is likely resistant to Fluconazole and may need Mycamine - will ask lab to do sensitivities continue Mycelex lozenge will continue to monitor clinically Overall prognosis is poor
--- NOTE | 2018-03-15 16:57 | CP.PCM.PN ---
<Kyle Simon - Last Filed: 03/15/18 17:04> Subjective - Date & Time of Evaluation Date of Evaluation: 03/15/18 Time of Evaluation: 16:56 - Subjective Subjective: Pt seen and examined. Pt reports itchiness from the antibiotics Objective - Vital Signs/Intake and Output Vital Signs (last 24 hours): Temp Pulse Resp BP Pulse Ox 98 F 84 18 111/78 97 03/15/18 12:00 03/15/18 12:00 03/15/18 12:00 03/15/18 12:00 03/15/18 06:00 Intake and Output: 03/15/18 03/15/18 06:59 18:59 Intake Total 1238 Balance 1238 - Medications Medications: Current Medications Acetaminophen (Tylenol 325mg Tab) 650 mg PO Q6H PRN PRN Reason: Fever >100.4 F Albuterol/Ipratropium (Duoneb 3 Mg/0.5 Mg (3 Ml) Ud) 3 ml IH [id number] PRN PRN Reason: Shortness of Breath Last Admin: 03/15/18 15:00 Dose: 3 ml Alprazolam (Xanax) 0.25 mg PO QID PRN; Protocol PRN Reason: Anxiety Stop: 03/18/18 05:51 Last Admin: 03/13/18 21:28 Dose: 0.25 mg Amiodarone HCl (Cordarone) 200 mg PO DAILY [facility] Last Admin: 03/15/18 10:57 Dose: 200 mg Benzocaine/Menthol (Cepacol Sore Throat) 1 amber MT QID [facility] Last Admin: 03/15/18 14:08 Dose: Not Given Bumetanide (Bumex) 1 mg PO BID [facility] Last Admin: 03/11/18 18:07 Dose: 1 mg Camphor/Menthol (Bengay) 0.1 gm TOP QID PRN PRN Reason: Muscle spasm Last Admin: 03/15/18 02:27 Dose: 0.1 gm Clotrimazole (Mycelex Kerri) 10 mg MT 5XD [facility] Last Admin: 03/15/18 14:10 Dose: 10 mg Furosemide (Lasix) 40 mg IVP 0600,1800 [facility] Last Admin: 03/15/18 05:33 Dose: 40 mg Hydrocortisone (Cortef) 30 mg PO BID [facility] Last Admin: 03/15/18 10:56 Dose: 30 mg Milrinone Lactate/Dextrose (Primacor 20mg/100ml D5w) 100 mls @ 12.383 mls/hr IV .Q8H5M PRN; Protocol PRN Reason: TITRATE PER MD ORDER Last Admin: 03/15/18 06:15 Dose: 0.5 mcg/kg/min, 12.383 mls/hr Micafungin Sodium 100 mg/ (Sodium Chloride) 100 mls @ 100 mls/hr IV DAILY [facility]; Protocol Stop: 03/21/18 10:01 Last Admin: 03/15/18 10:19 Dose: Not Given Lidocaine (Lidoderm) 1 ea TD DAILY [facility] Last Admin: 03/15/18 10:57 Dose: 1 ea Loratadine (Claritin) 10 mg PO DAILY [facility] Last Admin: 03/15/18 10:56 Dose: 10 mg Metoprolol Succinate (Toprol Xl) 12.5 mg PO QPM [facility] Last Admin: 03/11/18 18:07 Dose: 12.5 mg Nystatin (Nystatin Oral Susp) 5 ml PO QID [facility] Last Admin: 03/15/18 14:10 Dose: 5 ml Oxycodone/Acetaminophen (Percocet 10/325 Mg Tab) 1 tab PO BID PRN PRN Reason: Pain, severe (8-10) Last Admin: 03/14/18 21:29 Dose: 1 tab Warfarin Sodium (Coumadin) 2 mg PO 1800 [facility]; Protocol Last Admin: 03/14/18 17:55 Dose: 2 mg - Labs Labs: 03/15/18 06:30 03/15/18 06:30 PT 29.2 SECONDS (9.4-12.5) H 03/15/18 06:40 INR 2.49 03/15/18 06:40 - Head Exam Head Exam: ATRAUMATIC, NORMOCEPHALIC - ENT Exam ENT Exam: Mucous Membranes Moist - Respiratory Exam Respiratory Exam: NORMAL BREATHING PATTERN - Cardiovascular Exam Cardiovascular Exam: REGULAR RHYTHM, +S1, +S2 - Neurological Exam Neurological Exam: Oriented x3 - Psychiatric Exam Psychiatric exam: Normal Affect, Normal Mood - Skin Skin Exam: Dry, Intact, Warm Assessment and Plan - Assessment and Plan (Free Text) Assessment: Pt is a 52yo female, with a PMH of SLE, adrenal insufficiency on chronic steroids, CHF 2/2 non-ischemic cardiomyopathy EF 15% s/p AICD, recent [place] [address] Kahn, endocarditis, on heart transplant list RWJ, PFO, ASD, on Warfarin, CVA x2 w/ residual right-sided weakness, non-malignant breast calcifications B/L, PE, anxiety, depression & R breast cellulites, who was admitted for evaluation and treatment of flu-like symptoms, weakness and body aches. Plan: Fungemia - continue micafungin - ECHO: waiting for official read - Blood cultures positive for c. glabrata - ID following Leg Pain - LEUS: negative for DVT Upper Respiratory Infection - continue cefepime History of Adrenal Insufficiency - home hydrocortisone restarted 30mg BID End Stage Dilated Cardiomyopathy, Questionable Hx of Atrial Fibrillation - continue home milrinone drip - hold home metoprolol and bumetanide due to hypotension - continue warfarin, daily INR 2.49 - cardiology consulted Nasal Congestion, Difficulty Breathing - claritin - prn duonebs Chronic Back Pain - lidoderm patch - percocet 10, BID PRN only if MAP > 65 Pt seen, examined, assessment and plan discussed with Dr Modesto Simon PGY1 <Alicia Salvador - Last Filed: 03/16/18 06:39> Objective - Vital Signs/Intake and Output Vital Signs (last 24 hours): Temp Pulse Resp BP Pulse Ox 98.1 F 73 18 105/64 100 03/16/18 06:00 03/16/18 06:00 03/16/18 06:00 03/16/18 06:00 03/16/18 06:00 Intake and Output: 03/15/18 03/16/18 18:59 06:59 Intake Total 100 1761 Balance 100 1761 - Medications Medications: Current Medications Acetaminophen (Tylenol 325mg Tab) 650 mg PO Q6H PRN PRN Reason: Fever >100.4 F Albuterol/Ipratropium (Duoneb 3 Mg/0.5 Mg (3 Ml) Ud) 3 ml IH [id number] PRN PRN Reason: Shortness of Breath Last Admin: 03/16/18 01:35 Dose: 3 ml Alprazolam (Xanax) 0.25 mg PO QID PRN; Protocol PRN Reason: Anxiety Stop: 03/18/18 05:51 Last Admin: 03/16/18 01:21 Dose: 0.25 mg Amiodarone HCl (Cordarone) 200 mg PO DAILY [facility] Last Admin: 03/15/18 10:57 Dose: 200 mg Benzocaine/Menthol (Cepacol Sore Throat) 1 amber MT QID [facility] Last Admin: 03/15/18 21:39 Dose: 1 amber Bumetanide (Bumex) 1 mg PO BID [facility] Last Admin: 03/11/18 18:07 Dose: 1 mg Camphor/Menthol (Bengay) 0.1 gm TOP QID PRN PRN Reason: Muscle spasm Last Admin: 03/15/18 02:27 Dose: 0.1 gm Clotrimazole (Mycelex Kerri) 10 mg MT 5XD [facility] Last Admin: 03/15/18 21:39 Dose: 10 mg Furosemide (Lasix) 40 mg IVP 0600,1800 [facility] Last Admin: 03/15/18 17:53 Dose: 40 mg Hydrocortisone (Cortef) 30 mg PO BID [facility] Last Admin: 03/15/18 17:56 Dose: 30 mg Milrinone Lactate/Dextrose (Primacor 20mg/100ml D5w) 100 mls @ 12.383 mls/hr IV .Q8H5M PRN; Protocol PRN Reason: TITRATE PER MD ORDER Last Admin: 03/16/18 03:54 Dose: 0.5 mcg/kg/min, 12.383 mls/hr Micafungin Sodium 100 mg/ (Sodium Chloride) 100 mls @ 100 mls/hr IV DAILY [facility]; Protocol Stop: 03/21/18 10:01 Last Admin: 03/15/18 10:19 Dose: Not Given Lidocaine (Lidoderm) 1 ea TD DAILY [facility] Last Admin: 03/15/18 10:57 Dose: 1 ea Loratadine (Claritin) 10 mg PO DAILY [facility] Last Admin: 03/15/18 10:56 Dose: 10 mg Metoprolol Succinate (Toprol Xl) 12.5 mg PO QPM [facility] Last Admin: 03/11/18 18:07 Dose: 12.5 mg Nystatin (Nystatin Oral Susp) 5 ml PO QID [facility] Last Admin: 03/15/18 21:39 Dose: 5 ml Oxycodone/Acetaminophen (Percocet 10/325 Mg Tab) 1 tab PO BID PRN PRN Reason: Pain, severe (8-10) Last Admin: 03/15/18 20:33 Dose: 1 tab Warfarin Sodium (Coumadin) 2 mg PO 1800 [facility]; Protocol Last Admin: 03/15/18 17:53 Dose: 2 mg - Labs Labs: 03/15/18 06:30 03/15/18 06:30 PT 29.2 SECONDS (9.4-12.5) H 03/15/18 06:40 INR 2.49 03/15/18 06:40 Attending/Attestation - Attestation I have personally seen and examined this patient.: Yes I have fully participated in the care of the patient.: Yes I have reviewed all pertinent clinical information, including history, physical exam and plan: Yes Notes (Text): 03/15/18 52 year old female with past medical history of SLE, adrenal insufficiency on chronic steroids, and cardiomyopathy s/p AICD on milrinone who presented with URI symptoms. She was found to have fungemia with blood cultures + for juan m glabrata. She is on micafungin and cefepime. ID is following. Repeat blood cultures are negative x 24 hrs. Echocardiogram was done today with pending report. Cardiology is also following. Patient is on milrinone drip and coumadin. Alicia Salvador MD Hospitalist.
[2018-03-15] MEDS: Oxycodone/Acetaminophen 10/325 mg Tab PO PRN (20:33)
[2018-03-16] MEDS: Albuterol-Ipratrop 3 mg / 0.5 (3 ml) UD IH PRN (01:35)
[2018-03-16] MEDS: Milrinone 20mg/100ml D5W 100 ML IV PRN ×3 (03:54→20:03)
[2018-03-16 07:24] LABS: BASO # 0.01 K/mm3 (0.0-2.0); BASO % 0.1 % (0.0-3.0); EOS % 0.2 % (1.5-5.0); GRAN # 5.81 (1.4-6.5); GRAN % 66.5 % (50.0-68.0); HEMOGLOBIN 9.3 g/dL (12.0-16.0); LYMPH # 2.1 (1.2-3.4); LYMPH % 23.9 % (22.0-35.0); MEAN CELL VOLUME 81.1 fl (80.0-105.0); MEAN CORPUSCULAR HEMOGLOBIN 24.5 pg (25.0-35.0); MEAN CORPUSCULAR HGB CONC 30.2 g/dl (31.0-37.0); MEAN PLATELET VOLUME 10.4 fl (7.0-11.0); MONO # 0.8 (0.1-0.6); MONO % 9.3 % (1.0-6.0); RBC 3.8 10^6/uL (3.5-6.1); RED CELL DISTRIBUTION WIDTH 16.1 % (11.5-14.5); WHITE BLOOD COUNT 8.7 10^3/ul (4.5-11.0)
[2018-03-16 07:34] LABS: ALB/GLOB RATIO 0.9 (1.1-1.8); ALBUMIN 3.1 g/dL (3.0-4.8); ALT/SGPT 27 U/L (7-56); AST/SGOT 24 U/L (14-36); BLOOD UREA NITROGEN 21 mg/dL (7-21); CALCIUM 8.3 mg/dL (8.4-10.5); GFR NON-AFRICAN AMERICAN > 60
--- NOTE | 2018-03-16 08:49 | CON ---
DATE: 03/15/2018 HISTORY OF PRESENT ILLNESS: I was asked to see this patient today on 03/15/2018. The patient is a 52-year-old black female who was admitted on 03/11/2018. She is diagnosed with a systemic fungemia. She is currently being treated with an antifungal medication intravenously. I was asked by the Infectious Disease physician to rule out an endophthalmitis of the patient's eyes. The patient has no complaints of any pain, tenderness or loss of visual acuity as well as no photophobia. OPHTHALMIC EXAMINATION: The patient's visual acuity with correction for near was Malick 1+ using a Snellen reading card. Extraocular movements were intact and without any tenderness. The lid and adnexa were normal. Conjunctiva and sclerae were without injection. There was no evidence of any iritis or any anterior chamber flare or cell. The corneas were clear. The patient was then dilated using 2.5% Ky-Synephrine and 1% Mydriacyl OU. Funduscopic examination revealed a clear media with some vitreous floaters and a cup-to-disc ratio of 0.40 x 0.40 OU. The disc margins were sharp and the optic nerves were flat with normal color and the only significant finding on the retinal examination was scattered drusen involving the macula and peripapillary areas. There was no evidence of any vascular cuffing or any other evidence of active lesions bilaterally. IMPRESSION: My impression was there was no evidence of any endophthalmitis in either eye. The patient did demonstrate early age-related macular degeneration. RECOMMENDATIONS: I recommended that once she was discharged from the hospital and able to come to my office, I would give her a complete ophthalmic examination. I did recommend the use of Areds2 vitamins to be used twice a day along with Lutein 40 mg capsule once daily for the treatment of early macular degeneration. Again, there was no evidence of any active infection. If you have any questions you can call me on my cell at #[phone]. Jun Pop MD [facility]
[2018-03-16] MEDS: Nystatin 100,000 Units/ml Oral Susp 5 ml UD PO SCH ×4 (10:15→21:41)
[2018-03-16] MEDS: Benzocaine/Menthol (Cepacol) Lozenge MT SCH ×4 (10:16→21:41)
[2018-03-16] MEDS: Lidocaine 5% Patch TD SCH (10:17)
[2018-03-16] MEDS: Micafungin 100 MG in Sodium Chloride 0.9% 100 ML IV SCH (10:18)
--- NOTE | 2018-03-16 11:01 | CARD ---
APPROVED REPORT Date of service: 03/15/2018 EXAM: Two-dimensional and M-mode echocardiogram with Doppler and color Doppler. INDICATION Infection:Rule out subacute bacterial endocarditis 2D DIMENSIONS Left Atrium (2D)4.2 (1.6-4.0cm)IVSd1.0 (0.7-1.1cm) LVDd7.5 (3.9-5.9cm)PWd1.0 (0.7-1.1cm) LVDs7.0 (2.5-4.0cm)FS (%) 6.2 % LVEF (%)13.5 (>50%) M-Mode DIMENSIONS Aortic Root2.60 (2.2-3.7cm)Aortic Cusp Exc.1.60 (1.5-2.0cm) Aortic Valve AoV Peak [id number]/Rasheed Peak GR.10mmHg Mitral Valve E/A ratio0.0 TDI E/Lateral E'0.0E/Medial E'0.0 Tricuspid Valve TR Peak [id number] [id number] Peak Gr.23mmHg [id number] LEFT VENTRICLE The Left Ventricle is severely dilated. The systolic function is severely impaired. EJ.Fr: 13-15%. RIGHT VENTRICLE The right ventricle is normal size. ATRIA The left atrium is mildly dilated. The right atrium size is normal. AORTIC VALVE The aortic valve is normal in structure. MITRAL VALVE The mitral valve is normal in structure. Mitral regurgitation is moderate. TRICUSPID VALVE The tricuspid valve is normal in structure. There is mild tricuspid regurgitation. RVSP:33mm Hg. <Conclusion> The Left Ventricle is severely dilated. The systolic function is severely impaired. EJ.Fr: 13-15%. Moderate LV Diastolic Dysfunction. The right ventricle is normal size. The left atrium is mildly dilated. The right atrium size is normal. The aortic valve is normal in structure. The mitral valve is normal in structure. Mitral regurgitation is moderate. The tricuspid valve is normal in structure. There is mild tricuspid regurgitation. RVSP:33mm Hg. Echogenic Density in RA,RV suggestive of Defibrillator Leads.
[2018-03-16 12:47] LABS: INR 2.82; PROTHROMBIN TIME 33.1 SECONDS (9.4-12.5)
--- NOTE | 2018-03-16 14:23 | CP.PCM.PN ---
<Kyle Simon - Last Filed: 03/16/18 16:38> Subjective - Date & Time of Evaluation Date of Evaluation: 03/16/18 Time of Evaluation: 14:20 - Subjective Subjective: Pt seen and examined this morning. Pt reports she did not experienced the same itchiness, her micafungin was held last night. Objective - Vital Signs/Intake and Output Vital Signs (last 24 hours): Temp Pulse Resp BP Pulse Ox 98.1 F 86 18 135/99 H 100 03/16/18 06:00 03/16/18 10:16 03/16/18 06:00 03/16/18 10:16 03/16/18 06:00 Intake and Output: 03/16/18 03/16/18 06:59 18:59 Intake Total 1909 100 Balance 1909 100 - Medications Medications: Current Medications Acetaminophen (Tylenol 325mg Tab) 650 mg PO Q6H PRN PRN Reason: Fever >100.4 F Last Admin: 03/16/18 10:20 Dose: 650 mg Acetaminophen (Tylenol 325mg Tab) 650 mg PO Q6 PRN PRN Reason: Pain, moderate (4-7) Albuterol/Ipratropium (Duoneb 3 Mg/0.5 Mg (3 Ml) Ud) 3 ml IH [id number] PRN PRN Reason: Shortness of Breath Last Admin: 03/16/18 01:35 Dose: 3 ml Alprazolam (Xanax) 0.25 mg PO QID PRN; Protocol PRN Reason: Anxiety Stop: 03/18/18 05:51 Last Admin: 03/16/18 01:21 Dose: 0.25 mg Amiodarone HCl (Cordarone) 200 mg PO DAILY [facility] Last Admin: 03/16/18 10:16 Dose: 200 mg Benzocaine/Menthol (Cepacol Sore Throat) 1 amber MT QID [facility] Last Admin: 03/16/18 10:16 Dose: 1 amber Bumetanide (Bumex) 1 mg PO BID [facility] Last Admin: 03/11/18 18:07 Dose: 1 mg Camphor/Menthol (Bengay) 0.1 gm TOP QID PRN PRN Reason: Muscle spasm Last Admin: 03/15/18 02:27 Dose: 0.1 gm Clotrimazole (Mycelex Kerri) 10 mg MT 5XD [facility] Last Admin: 03/16/18 10:17 Dose: 10 mg Furosemide (Lasix) 40 mg PO BID [facility] Last Admin: 03/16/18 10:17 Dose: Not Given Hydrocortisone (Cortef) 30 mg PO BID [facility] Last Admin: 03/16/18 10:16 Dose: 30 mg Milrinone Lactate/Dextrose (Primacor 20mg/100ml D5w) 100 mls @ 12.383 mls/hr IV .Q8H5M PRN; Protocol PRN Reason: TITRATE PER MD ORDER Last Admin: 03/16/18 10:13 Dose: 0.5 mcg/kg/min, 12.383 mls/hr Micafungin Sodium 100 mg/ (Sodium Chloride) 100 mls @ 100 mls/hr IV DAILY [facility]; Protocol Stop: 03/21/18 10:01 Last Admin: 03/16/18 10:18 Dose: 100 mls/hr Lidocaine (Lidoderm) 1 ea TD DAILY [facility] Last Admin: 03/16/18 10:17 Dose: 1 ea Loratadine (Claritin) 10 mg PO DAILY [facility] Last Admin: 03/16/18 10:17 Dose: 10 mg Metoprolol Succinate (Toprol Xl) 12.5 mg PO QPM [facility] Last Admin: 03/11/18 18:07 Dose: 12.5 mg Nystatin (Nystatin Oral Susp) 5 ml PO QID [facility] Last Admin: 03/16/18 10:15 Dose: 5 ml Oxycodone/Acetaminophen (Percocet 10/325 Mg Tab) 1 tab PO BID PRN PRN Reason: Pain, severe (8-10) Last Admin: 03/15/18 20:33 Dose: 1 tab Warfarin Sodium (Coumadin) 2 mg PO 1800 [facility]; Protocol Last Admin: 03/15/18 17:53 Dose: 2 mg - Labs Labs: 03/16/18 06:30 03/16/18 06:30 PT 33.1 SECONDS (9.4-12.5) H 03/16/18 12:30 INR 2.82 03/16/18 12:30 - Constitutional Appears: No Acute Distress - Head Exam Head Exam: ATRAUMATIC, NORMOCEPHALIC - Eye Exam Eye Exam: EOMI, Normal appearance. absent: Scleral icterus - ENT Exam ENT Exam: Mucous Membranes Moist - Respiratory Exam Respiratory Exam: Clear to Ausculation Bilateral, NORMAL BREATHING PATTERN. absent: Accessory Muscle Use, Wheezes, Respiratory Distress - Cardiovascular Exam Cardiovascular Exam: RRR, +S1, +S2. absent: Diastolic murmur, Murmur - GI/Abdominal Exam GI & Abdominal Exam: Soft, Normal Bowel Sounds. absent: Distended, Tenderness, Rebound - Extremities Exam Extremities Exam: Full ROM. absent: Calf Tenderness - Neurological Exam Neurological Exam: Alert, Awake, Oriented x3 - Psychiatric Exam Psychiatric exam: Normal Affect, Normal Mood - Skin Skin Exam: Dry, Intact, Warm Assessment and Plan - Assessment and Plan (Free Text) Assessment: Pt is a 52yo female, with a PMH of SLE, adrenal insufficiency on chronic steroids, CHF 2/2 non-ischemic cardiomyopathy EF 15% s/p AICD, recent generator [place] [address] Kahn, endocarditis, on heart transplant list [facility], PFO, ASD, on Warfarin, CVA x2 w/ residual right-sided weakness, non-malignant breast calcifications B/L, PE, anxiety, depression & R breast cellulites, who was admitted for evaluation and treatment of flu-like symptoms, weakness and body aches. Plan: Fungemia - continue micafungin - ECHO: EF 13.5%, no evidence of valvular vegetations - Blood cultures: c. glabrata, pending sensitivity - upper extremity ultrasound: no evidence of DVT, does show superficial thrombophlebitis - ID following Leg Pain - LEUS: negative for DVT History of Adrenal Insufficiency - home hydrocortisone 30mg BID End Stage Dilated Cardiomyopathy, Questionable Hx of Atrial Fibrillation - continue home milrinone drip - hold home metoprolol and bumetanide due to hypotension - continue warfarin, daily INR 2.82 - cardiology consulted Nasal Congestion, Difficulty Breathing - claritin - duonebs Chronic Back Pain - lidoderm patch - percocet 10, BID PRN only if MAP > 65 Pt seen, examined, assessment and plan discussed with Dr Modesto Simon PGY1, Internal Medicine Resident <Alicia Salvador - Last Filed: 03/16/18 17:40> Objective - Vital Signs/Intake and Output Vital Signs (last 24 hours): Temp Pulse Resp BP Pulse Ox 97.8 F 96 H 18 108/68 100 03/16/18 12:30 03/16/18 14:00 03/16/18 12:30 03/16/18 12:30 03/16/18 06:00 Intake and Output: 03/16/18 03/16/18 06:59 18:59 Intake Total 1909 100 Balance 1909 100 - Medications Medications: Current Medications Acetaminophen (Tylenol 325mg Tab) 650 mg PO Q6H PRN PRN Reason: Fever >100.4 F Last Admin: 03/16/18 10:20 Dose: 650 mg Acetaminophen (Tylenol 325mg Tab) 650 mg PO Q6 PRN PRN Reason: Pain, moderate (4-7) Albuterol/Ipratropium (Duoneb 3 Mg/0.5 Mg (3 Ml) Ud) 3 ml IH [id number] PRN PRN Reason: Shortness of Breath Last Admin: 03/16/18 01:35 Dose: 3 ml Alprazolam (Xanax) 0.25 mg PO QID PRN; Protocol PRN Reason: Anxiety Stop: 03/18/18 05:51 Last Admin: 03/16/18 01:21 Dose: 0.25 mg Amiodarone HCl (Cordarone) 200 mg PO DAILY [facility] Last Admin: 03/16/18 10:16 Dose: 200 mg Benzocaine/Menthol (Cepacol Sore Throat) 1 amber MT QID [facility] Last Admin: 03/16/18 14:54 Dose: 1 amber Bumetanide (Bumex) 1 mg PO BID [facility] Last Admin: 03/11/18 18:07 Dose: 1 mg Camphor/Menthol (Bengay) 0.1 gm TOP QID PRN PRN Reason: Muscle spasm Last Admin: 03/15/18 02:27 Dose: 0.1 gm Clotrimazole (Mycelex Kerri) 10 mg MT 5XD [facility] Last Admin: 03/16/18 14:54 Dose: 10 mg Furosemide (Lasix) 40 mg PO BID [facility] Last Admin: 03/16/18 10:17 Dose: Not Given Hydrocortisone (Cortef) 30 mg PO BID [facility] Last Admin: 03/16/18 10:16 Dose: 30 mg Milrinone Lactate/Dextrose (Primacor 20mg/100ml D5w) 100 mls @ 12.383 mls/hr IV .Q8H5M PRN; Protocol PRN Reason: TITRATE PER MD ORDER Last Admin: 03/16/18 10:13 Dose: 0.5 mcg/kg/min, 12.383 mls/hr Micafungin Sodium 100 mg/ (Sodium Chloride) 100 mls @ 100 mls/hr IV DAILY [facility]; Protocol Stop: 03/21/18 10:01 Last Admin: 03/16/18 10:18 Dose: 100 mls/hr Lidocaine (Lidoderm) 1 ea TD DAILY [facility] Last Admin: 03/16/18 10:17 Dose: 1 ea Loratadine (Claritin) 10 mg PO DAILY [facility] Last Admin: 03/16/18 10:17 Dose: 10 mg Metoprolol Succinate (Toprol Xl) 12.5 mg PO QPM [facility] Last Admin: 03/11/18 18:07 Dose: 12.5 mg Nystatin (Nystatin Oral Susp) 5 ml PO QID [facility] Last Admin: 03/16/18 14:54 Dose: 5 ml Oxycodone/Acetaminophen (Percocet 10/325 Mg Tab) 1 tab PO BID PRN PRN Reason: Pain, severe (8-10) Last Admin: 03/15/18 20:33 Dose: 1 tab Warfarin Sodium (Coumadin) 2 mg PO 1800 [facility]; Protocol Last Admin: 03/15/18 17:53 Dose: 2 mg - Labs Labs: 03/16/18 06:30 03/16/18 06:30 PT 33.1 SECONDS (9.4-12.5) H 03/16/18 12:30 INR 2.82 03/16/18 12:30 Attending/Attestation - Attestation I have personally seen and examined this patient.: Yes I have fully participated in the care of the patient.: Yes I have reviewed all pertinent clinical information, including history, physical exam and plan: Yes Notes (Text): 03/16/18 17:39 52 year old female with past medical history of SLE, adrenal insufficiency on chronic steroids, and cardiomyopathy s/p AICD on milrinone who presented with URI symptoms. She was found to have fungemia with blood cultures + for juan m glabrata. She is on micafungin and cefepime. ID is following. Repeat blood cultures are negative x 48 hrs. Echocardiogram was reviewed; no mention of vegetations. Picc line will be removed and replaced today. Cardiology is also following. Patient is on milrinone drip and coumadin. Alicia Salvador MD Hospitalist.
--- NOTE | 2018-03-16 15:01 | PN ---
DATE: 03/16/2018 CARDIOLOGY FOLLOWUP SUBJECTIVE: The patient is asymptomatic. PHYSICAL EXAMINATION: VITAL SIGNS: Blood pressure is 110/69, heart rate is in the 70s. The patient is afebrile. NECK: Negative JVD. LUNGS: Without rales. HEART: Reveals S1, S2. EXTREMITIES: Without edema. LABORATORY DATA: BUN and creatinine are unremarkable. The white count is 8.7, hemoglobin is 9.3. Preliminary echocardiogram reveals no vegetations. IMPRESSION: 1. End-stage dilated cardiomyopathy with an ejection fraction of 13%. 2. Resolution of congestive heart failure. 3. Bacteremia. 4. Anemia. 5. Intermittent dyspnea. 6. Resolution of pedal edema. PLAN: Given these findings, awaiting ID disposition. Her cardiac status is much improved. The patient is working with [facility], to be listed in the transplant program. We will discontinue the IV Lasix and switch to p.o. Rm Alvarez MD
--- NOTE | 2018-03-16 15:12 | US ---
PROCEDURE: Left upper extremity venous ultrasound HISTORY: Arm pain and swelling. Evaluate for deep venous thrombosis. PHYSICIAN(S): Rm Cueto MD. FINDINGS: The visualized leftinternal jugular vein is sonographically normal and compressible. No evidence of obstruction or thrombus is seen. The visualized segments of the left subclavian vein are patent with normal waveforms. No sonographic evidence of obstruction or thrombosis is seen. The visualized deep venous system of the proximal leftupper extremity is sonographically normal and compressible. There is occlusive superficial thrombophlebitis in a segment of the left basilic vein above the elbow IMPRESSION: 1. No sonographic evidence for deep venous thrombosis in the visualized segments of the left upper extremity. 2. Superficial thrombophlebitis left basilic vein above the elbow
--- NOTE | 2018-03-16 17:24 | CP.PCM.PN ---
Subjective - Date & Time of Evaluation Date of Evaluation: 03/16/18 Time of Evaluation: 10:55 - Subjective Subjective: Afebrile, no more itching, no fevers, not in distress. Objective - Vital Signs/Intake and Output Vital Signs (last 24 hours): Temp Pulse Resp BP Pulse Ox 98.1 F 73 18 110/69 100 03/16/18 06:00 03/16/18 06:00 03/16/18 06:00 03/16/18 06:35 03/16/18 06:00 Intake and Output: 03/15/18 03/16/18 18:59 06:59 Intake Total 100 1761 Balance 100 1761 - Medications Medications: Current Medications Acetaminophen (Tylenol 325mg Tab) 650 mg PO Q6H PRN PRN Reason: Fever >100.4 F Albuterol/Ipratropium (Duoneb 3 Mg/0.5 Mg (3 Ml) Ud) 3 ml IH [id number] PRN PRN Reason: Shortness of Breath Last Admin: 03/16/18 01:35 Dose: 3 ml Alprazolam (Xanax) 0.25 mg PO QID PRN; Protocol PRN Reason: Anxiety Stop: 03/18/18 05:51 Last Admin: 03/16/18 01:21 Dose: 0.25 mg Amiodarone HCl (Cordarone) 200 mg PO DAILY [facility] Last Admin: 03/15/18 10:57 Dose: 200 mg Benzocaine/Menthol (Cepacol Sore Throat) 1 amber MT QID [facility] Last Admin: 03/15/18 21:39 Dose: 1 amber Bumetanide (Bumex) 1 mg PO BID [facility] Last Admin: 03/11/18 18:07 Dose: 1 mg Camphor/Menthol (Bengay) 0.1 gm TOP QID PRN PRN Reason: Muscle spasm Last Admin: 03/15/18 02:27 Dose: 0.1 gm Clotrimazole (Mycelex Kerri) 10 mg MT 5XD [facility] Last Admin: 03/16/18 06:35 Dose: 10 mg Furosemide (Lasix) 40 mg IVP 0600,1800 [facility] Last Admin: 03/16/18 06:35 Dose: 40 mg Hydrocortisone (Cortef) 30 mg PO BID [facility] Last Admin: 03/15/18 17:56 Dose: 30 mg Milrinone Lactate/Dextrose (Primacor 20mg/100ml D5w) 100 mls @ 12.383 mls/hr IV .Q8H5M PRN; Protocol PRN Reason: TITRATE PER MD ORDER Last Admin: 03/16/18 03:54 Dose: 0.5 mcg/kg/min, 12.383 mls/hr Micafungin Sodium 100 mg/ (Sodium Chloride) 100 mls @ 100 mls/hr IV DAILY [facility]; Protocol Stop: 03/21/18 10:01 Last Admin: 03/15/18 10:19 Dose: Not Given Lidocaine (Lidoderm) 1 ea TD DAILY [facility] Last Admin: 03/15/18 10:57 Dose: 1 ea Loratadine (Claritin) 10 mg PO DAILY [facility] Last Admin: 03/15/18 10:56 Dose: 10 mg Metoprolol Succinate (Toprol Xl) 12.5 mg PO QPM [facility] Last Admin: 03/11/18 18:07 Dose: 12.5 mg Nystatin (Nystatin Oral Susp) 5 ml PO QID [facility] Last Admin: 03/15/18 21:39 Dose: 5 ml Oxycodone/Acetaminophen (Percocet 10/325 Mg Tab) 1 tab PO BID PRN PRN Reason: Pain, severe (8-10) Last Admin: 03/15/18 20:33 Dose: 1 tab Warfarin Sodium (Coumadin) 2 mg PO 1800 [facility]; Protocol Last Admin: 03/15/18 17:53 Dose: 2 mg - Labs Labs: 03/15/18 06:30 03/15/18 06:30 PT 29.2 SECONDS (9.4-12.5) H 03/15/18 06:40 INR 2.49 03/15/18 06:40 - Constitutional Appears: No Acute Distress, Chronically Ill - Head Exam Head Exam: NORMAL INSPECTION - Respiratory Exam Respiratory Exam: Decreased Breath Sounds - Cardiovascular Exam Cardiovascular Exam: +S1, +S2 - GI/Abdominal Exam GI & Abdominal Exam: Soft. absent: Tenderness Assessment and Plan - Assessment and Plan (Free Text) Plan: Assessment sepsis due to Ashley glabrata fungemia, R/O due to line infection, no vegetations on ICD or heart vavles noted on 2D echo acute bronchitis as well as URI, no specific evidence of pneumonia, clinically improved oral thrush probably from inhaler use history of Ashley glabrata fungemia, suspicious to be PICC line/port-related S/P port removal; RANJEET done and did not show valve vegetations or vegetations on the AICD history of sepsis due to C. parapsilosis and C. glabrata fungemia and Enterococcus bacteremia probably from PICC line, unable to rule out endocarditis history of Sepsis due to right breast cellulitis/mastitis with purulent discharge, growing Serratia history of bilateral breast mastitis growing coagulase negative Staph and Klebsiella pneumoniae history of vaginal candidiasis SLE history of pulmonary emboli CVA asthma S/P ICD placement Plan has had 4 days of Cefepime and Doxycycline; reviewed CXR which did not show infiltrates continue Mycamine (but held today to see if this is the cause of pruritus) and repeat blood cx are negative; 2D echo is negative for vegetations - lPICC should be removed, blood cx repeated and should get 4-6 weeks of Mycamine with weekly CRP, CBC, CMP; should also get repeat blood cx after the course of Mycamine should get Ophtho exam to rule out endophthalmitis will continue to monitor clinically Overall prognosis is poor
[2018-03-16] MEDS: Oxycodone/Acetaminophen 10/325 mg Tab PO PRN (18:19)
[2018-03-17] MEDS: Milrinone 20mg/100ml D5W 100 ML IV PRN ×2 (03:02→18:41)
[2018-03-17 07:10] LABS: BASO # 0.01 K/mm3 (0.0-2.0); BASO % 0.1 % (0.0-3.0); EOS % 0.2 % (1.5-5.0); GRAN # 7.26 (1.4-6.5); GRAN % 71.6 % (50.0-68.0); HEMOGLOBIN 9.8 g/dL (12.0-16.0); LYMPH # 2.1 (1.2-3.4); LYMPH % 20.8 % (22.0-35.0); MEAN CELL VOLUME 81.5 fl (80.0-105.0); MEAN CORPUSCULAR HEMOGLOBIN 24.6 pg (25.0-35.0); MEAN CORPUSCULAR HGB CONC 30.2 g/dl (31.0-37.0); MEAN PLATELET VOLUME 10.5 fl (7.0-11.0); MONO # 0.7 (0.1-0.6); MONO % 7.3 % (1.0-6.0); RBC 3.99 10^6/uL (3.5-6.1); RED CELL DISTRIBUTION WIDTH 16.3 % (11.5-14.5); WHITE BLOOD COUNT 10.1 10^3/ul (4.5-11.0)
[2018-03-17 07:20] LABS: INR 2.74; PROTHROMBIN TIME 32.2 SECONDS (9.4-12.5)
[2018-03-17 07:41] LABS: ALBUMIN 3.1 g/dL (3.0-4.8); ALT/SGPT 29 U/L (7-56); AST/SGOT 14 U/L (14-36); BLOOD UREA NITROGEN 26 mg/dL (7-21); CALCIUM 8.4 mg/dL (8.4-10.5); GFR NON-AFRICAN AMERICAN > 60
[2018-03-17] MEDS: Nystatin 100,000 Units/ml Oral Susp 5 ml UD PO SCH ×4 (10:16→21:45)
[2018-03-17] MEDS: Micafungin 100 MG in Sodium Chloride 0.9% 100 ML IV SCH (10:16)
[2018-03-17] MEDS: Benzocaine/Menthol (Cepacol) Lozenge MT SCH ×4 (10:16→21:45)
[2018-03-17] MEDS: Lidocaine 5% Patch TD SCH (10:17)
--- NOTE | 2018-03-17 11:37 | PN ---
DATE: 03/17/2018 CARDIOLOGY FOLLOWUP SUBJECTIVE: The patient is asymptomatic. PHYSICAL EXAMINATION: VITAL SIGNS: Blood pressure is 130/76, the heart rate is in the 70s, the patient is afebrile. NECK: Negative JVD. LUNGS: Without rales. HEART: Reveals S1, S2. EXTREMITIES: Without edema. LABORATORY DATA: Chemistries are unremarkable. Hemoglobin is 9.8 with a white count of 10.1. IMPRESSION: 1. Dilated cardiomyopathy. 2. Anemia. 3. Congestive heart failure, which is stable. 4. Bacteremia. 5. Line sepsis. PLAN: Given these findings, the patient will need a new PICC line to continue her IV milrinone to go home. Orders have been placed. Rm Alvarez MD
--- NOTE | 2018-03-17 14:43 | CP.PCM.PN ---
<Kyle Simon - Last Filed: 03/17/18 14:56> Subjective - Date & Time of Evaluation Date of Evaluation: 03/17/18 Time of Evaluation: 14:42 - Subjective Subjective: Pt seen and examined this morning. Denies itchiness, SOB or chest pain Objective - Vital Signs/Intake and Output Vital Signs (last 24 hours): Temp Pulse Resp BP Pulse Ox 97.8 F 90 18 129/82 98 03/17/18 12:00 03/17/18 12:00 03/17/18 12:00 03/17/18 12:00 03/17/18 06:00 Intake and Output: 03/17/18 03/17/18 06:59 18:59 Intake Total 969 Balance 969 - Medications Medications: Current Medications Acetaminophen (Tylenol 325mg Tab) 650 mg PO Q6H PRN PRN Reason: Fever >100.4 F Last Admin: 03/16/18 10:20 Dose: 650 mg Acetaminophen (Tylenol 325mg Tab) 650 mg PO Q6 PRN PRN Reason: Pain, moderate (4-7) Albuterol/Ipratropium (Duoneb 3 Mg/0.5 Mg (3 Ml) Ud) 3 ml IH [id number] PRN PRN Reason: Shortness of Breath Last Admin: 03/16/18 01:35 Dose: 3 ml Alprazolam (Xanax) 0.25 mg PO QID PRN; Protocol PRN Reason: Anxiety Stop: 03/18/18 05:51 Last Admin: 03/16/18 01:21 Dose: 0.25 mg Amiodarone HCl (Cordarone) 200 mg PO DAILY [facility] Last Admin: 03/17/18 10:15 Dose: 200 mg Benzocaine/Menthol (Cepacol Sore Throat) 1 amber MT QID [facility] Last Admin: 03/17/18 13:40 Dose: 1 amber Bumetanide (Bumex) 1 mg PO BID [facility] Last Admin: 03/11/18 18:07 Dose: 1 mg Camphor/Menthol (Bengay) 0.1 gm TOP QID PRN PRN Reason: Muscle spasm Last Admin: 03/15/18 02:27 Dose: 0.1 gm Clotrimazole (Mycelex Kerri) 10 mg MT 5XD [facility] Last Admin: 03/17/18 13:39 Dose: 10 mg Furosemide (Lasix) 40 mg PO BID [facility] Last Admin: 03/17/18 10:16 Dose: 40 mg Hydrocortisone (Cortef) 30 mg PO BID [facility] Last Admin: 03/17/18 10:15 Dose: 30 mg Milrinone Lactate/Dextrose (Primacor 20mg/100ml D5w) 100 mls @ 12.383 mls/hr IV .Q8H5M PRN; Protocol PRN Reason: TITRATE PER MD ORDER Last Admin: 03/17/18 03:02 Dose: 0.5 mcg/kg/min, 12.383 mls/hr Micafungin Sodium 100 mg/ (Sodium Chloride) 100 mls @ 100 mls/hr IV DAILY [facility]; Protocol Stop: 03/21/18 10:01 Last Admin: 03/17/18 10:16 Dose: 100 mls/hr Lidocaine (Lidoderm) 1 ea TD DAILY [facility] Last Admin: 03/17/18 10:17 Dose: 1 ea Loratadine (Claritin) 10 mg PO DAILY [facility] Last Admin: 03/17/18 10:16 Dose: 10 mg Metoprolol Succinate (Toprol Xl) 12.5 mg PO QPM [facility] Last Admin: 03/11/18 18:07 Dose: 12.5 mg Nystatin (Nystatin Oral Susp) 5 ml PO QID [facility] Last Admin: 03/17/18 13:39 Dose: 5 ml Oxycodone/Acetaminophen (Percocet 10/325 Mg Tab) 1 tab PO BID PRN PRN Reason: Pain, severe (8-10) Last Admin: 03/16/18 18:19 Dose: 1 tab Warfarin Sodium (Coumadin) 2 mg PO 1800 [facility]; Protocol Last Admin: 03/16/18 20:07 Dose: Not Given - Labs Labs: 03/17/18 06:30 03/17/18 06:30 PT 32.2 SECONDS (9.4-12.5) H 03/17/18 06:30 INR 2.74 03/17/18 06:30 - Constitutional Appears: Non-toxic, No Acute Distress - Head Exam Head Exam: ATRAUMATIC, NORMAL INSPECTION, NORMOCEPHALIC - Eye Exam Eye Exam: EOMI, Normal appearance - ENT Exam ENT Exam: Mucous Membranes Moist, Normal Exam - Neck Exam Neck Exam: Full ROM - Respiratory Exam Respiratory Exam: Clear to Ausculation Bilateral, NORMAL BREATHING PATTERN. absent: Accessory Muscle Use, Wheezes, Respiratory Distress - Cardiovascular Exam Cardiovascular Exam: RRR, +S1, +S2. absent: Diastolic murmur, Murmur - GI/Abdominal Exam GI & Abdominal Exam: Soft, Normal Bowel Sounds. absent: Tenderness - Extremities Exam Extremities Exam: Full ROM. absent: Pedal Edema, Tenderness - Neurological Exam Neurological Exam: Alert, Awake, Oriented x3 - Psychiatric Exam Psychiatric exam: Normal Affect, Normal Mood - Skin Skin Exam: Dry, Normal Color, Warm Assessment and Plan - Assessment and Plan (Free Text) Assessment: Pt is a 52yo female, with a PMH of SLE, adrenal insufficiency on chronic steroids, CHF 2/2 non-ischemic cardiomyopathy EF 15% s/p AICD, [place] [address] Kahn, endocarditis, on heart transplant list RWJ, PFO, ASD, on Warfarin, CVA x2 w/ residual right-sided weakness, non-malignant breast calcifications B/L, PE, anxiety, depression & R breast cellulites, who was admitted for evaluation and treatment of flu-like symptoms, weakness and body aches. Plan: Fungemia - ECHO: EF 13.5%, no evidence of valvular vegetations - upper extremity ultrasound: no evidence of DVT, does show superficial thrombophlebitis - Repeat blood cultures: c. glabrata - ID following: recommends pt wait for negative blood cultures, then change PICC line Leg Pain - LEUS: negative for DVT History of Adrenal Insufficiency - hydrocortisone 30mg BID End Stage Dilated Cardiomyopathy, Questionable Hx of Atrial Fibrillation - milrinone drip - hold home metoprolol and bumetanide due to hypotension - continue warfarin, daily INR 2.82 - cardiology consulted Nasal Congestion, Difficulty Breathing - claritin - duonebs Chronic Back Pain - lidoderm patch - percocet 10, BID PRN only if MAP > 65 Pt seen, examined, assessment and plan discussed with Dr Modesto Simon PGY1, Internal Medicine Resident <Alicia Salvador - Last Filed: 03/17/18 16:47> Objective - Vital Signs/Intake and Output Vital Signs (last 24 hours): Temp Pulse Resp BP Pulse Ox 97.8 F 90 18 129/82 98 03/17/18 12:00 03/17/18 12:00 03/17/18 12:00 03/17/18 12:00 03/17/18 06:00 Intake and Output: 03/17/18 03/17/18 06:59 18:59 Intake Total 969 Balance 969 - Medications Medications: Current Medications Acetaminophen (Tylenol 325mg Tab) 650 mg PO Q6H PRN PRN Reason: Fever >100.4 F Last Admin: 03/16/18 10:20 Dose: 650 mg Acetaminophen (Tylenol 325mg Tab) 650 mg PO Q6 PRN PRN Reason: Pain, moderate (4-7) Albuterol/Ipratropium (Duoneb 3 Mg/0.5 Mg (3 Ml) Ud) 3 ml IH [id number] PRN PRN Reason: Shortness of Breath Last Admin: 03/16/18 01:35 Dose: 3 ml Alprazolam (Xanax) 0.25 mg PO QID PRN; Protocol PRN Reason: Anxiety Stop: 03/18/18 05:51 Last Admin: 03/17/18 16:05 Dose: 0.25 mg Amiodarone HCl (Cordarone) 200 mg PO DAILY [facility] Last Admin: 03/17/18 10:15 Dose: 200 mg Benzocaine/Menthol (Cepacol Sore Throat) 1 amber MT QID [facility] Last Admin: 03/17/18 13:40 Dose: 1 amber Bumetanide (Bumex) 1 mg PO BID [facility] Last Admin: 03/11/18 18:07 Dose: 1 mg Camphor/Menthol (Bengay) 0.1 gm TOP QID PRN PRN Reason: Muscle spasm Last Admin: 03/15/18 02:27 Dose: 0.1 gm Clotrimazole (Mycelex Kerri) 10 mg MT 5XD [facility] Last Admin: 03/17/18 13:39 Dose: 10 mg Furosemide (Lasix) 40 mg PO BID [facility] Last Admin: 03/17/18 10:16 Dose: 40 mg Hydrocortisone (Cortef) 30 mg PO BID [facility] Last Admin: 03/17/18 10:15 Dose: 30 mg Milrinone Lactate/Dextrose (Primacor 20mg/100ml D5w) 100 mls @ 12.383 mls/hr IV .Q8H5M PRN; Protocol PRN Reason: TITRATE PER MD ORDER Last Admin: 03/17/18 03:02 Dose: 0.5 mcg/kg/min, 12.383 mls/hr Micafungin Sodium 100 mg/ (Sodium Chloride) 100 mls @ 100 mls/hr IV DAILY [facility]; Protocol Stop: 03/21/18 10:01 Last Admin: 03/17/18 10:16 Dose: 100 mls/hr Lidocaine (Lidoderm) 1 ea TD DAILY [facility] Last Admin: 03/17/18 10:17 Dose: 1 ea Loratadine (Claritin) 10 mg PO DAILY [facility] Last Admin: 03/17/18 10:16 Dose: 10 mg Metoprolol Succinate (Toprol Xl) 12.5 mg PO QPM [facility] Last Admin: 03/11/18 18:07 Dose: 12.5 mg Nystatin (Nystatin Oral Susp) 5 ml PO QID [facility] Last Admin: 03/17/18 13:39 Dose: 5 ml Oxycodone/Acetaminophen (Percocet 10/325 Mg Tab) 1 tab PO BID PRN PRN Reason: Pain, severe (8-10) Last Admin: 03/16/18 18:19 Dose: 1 tab Warfarin Sodium (Coumadin) 2 mg PO 1800 [facility]; Protocol Last Admin: 03/16/18 20:07 Dose: Not Given - Labs Labs: 03/17/18 06:30 03/17/18 06:30 PT 32.2 SECONDS (9.4-12.5) H 03/17/18 06:30 INR 2.74 03/17/18 06:30 Attending/Attestation - Attestation I have personally seen and examined this patient.: Yes I have fully participated in the care of the patient.: Yes I have reviewed all pertinent clinical information, including history, physical exam and plan: Yes Notes (Text): 03/17/18 16:45 52 year old female with past medical history of SLE, adrenal insufficiency on chronic steroids, and cardiomyopathy s/p AICD on milrinone who presented with URI symptoms. She was found to have fungemia with blood cultures + for juan m glabrata. She is on micafungin and cefepime. ID is following. Repeat blood cultures from 03/14 also came back positive for yeast. Repeat set of blood cultures were ordered this morning. Echocardiogram was reviewed; no mention of vegetations. Picc line was removed and replaced with midline. Cardiology is a lso following. Patient is on milrinone drip and coumadin. Patient expressed desire to be discharged home today however I explained to her her repeat blood cultures are still positive and repeat cultures are for this morning. She agreed to stay. Alicia Salvador MD Hospitalist.
--- NOTE | 2018-03-17 19:01 | RAD ---
Date of service: 03/17/2018 HISTORY: to confirm PICC line COMPARISON: 03/11/2018 FINDINGS: LUNGS: No active pulmonary disease. PLEURA: Possible small left pleural effusion. No right pleural effusion. Left costophrenic angle region partially obscured by left breast. No pneumothorax. CARDIOVASCULAR: AICD. Right PICC catheter. Mild cardiomegaly. No congestive change. OSSEOUS STRUCTURES: No significant abnormalities. VISUALIZED UPPER ABDOMEN: Normal. OTHER FINDINGS: None. IMPRESSION: No acute infiltrate. Possible small left pleural effusion. Mild cardiomegaly. AICD.
[2018-03-17] MEDS: Oxycodone/Acetaminophen 10/325 mg Tab PO PRN (19:55)
--- NOTE | 2018-03-17 20:53 | CP.PCM.PN ---
Subjective - Date & Time of Evaluation Date of Evaluation: 03/17/18 Time of Evaluation: 10:50 - Subjective Subjective: No fevers, not in distress, no nausea, no more itching, no diarrhea. Objective - Vital Signs/Intake and Output Vital Signs (last 24 hours): Temp Pulse Resp BP Pulse Ox 98.2 F 90 18 129/82 98 03/17/18 18:00 03/17/18 18:41 03/17/18 18:00 03/17/18 18:41 03/17/18 06:00 Intake and Output: 03/17/18 03/18/18 18:59 06:59 Intake Total 100 740 Output Total 300 Balance 100 440 - Medications Medications: Current Medications Acetaminophen (Tylenol 325mg Tab) 650 mg PO Q6H PRN PRN Reason: Fever >100.4 F Last Admin: 03/16/18 10:20 Dose: 650 mg Acetaminophen (Tylenol 325mg Tab) 650 mg PO Q6 PRN PRN Reason: Pain, moderate (4-7) Albuterol/Ipratropium (Duoneb 3 Mg/0.5 Mg (3 Ml) Ud) 3 ml IH [id number] PRN PRN Reason: Shortness of Breath Last Admin: 03/16/18 01:35 Dose: 3 ml Alprazolam (Xanax) 0.25 mg PO QID PRN; Protocol PRN Reason: Anxiety Stop: 03/18/18 05:51 Last Admin: 03/17/18 16:05 Dose: 0.25 mg Amiodarone HCl (Cordarone) 200 mg PO DAILY [facility] Last Admin: 03/17/18 10:15 Dose: 200 mg Benzocaine/Menthol (Cepacol Sore Throat) 1 amber MT QID [facility] Last Admin: 03/17/18 18:39 Dose: 1 amber Bumetanide (Bumex) 1 mg PO BID [facility] Last Admin: 03/11/18 18:07 Dose: 1 mg Camphor/Menthol (Bengay) 0.1 gm TOP QID PRN PRN Reason: Muscle spasm Last Admin: 03/15/18 02:27 Dose: 0.1 gm Clotrimazole (Mycelex Kerri) 10 mg MT 5XD [facility] Last Admin: 03/17/18 18:38 Dose: 10 mg Furosemide (Lasix) 40 mg PO BID [facility] Last Admin: 03/17/18 18:38 Dose: 40 mg Hydrocortisone (Cortef) 30 mg PO BID [facility] Last Admin: 03/17/18 18:38 Dose: 30 mg Milrinone Lactate/Dextrose (Primacor 20mg/100ml D5w) 100 mls @ 12.383 mls/hr IV .Q8H5M PRN; Protocol PRN Reason: TITRATE PER MD ORDER Last Admin: 03/17/18 18:41 Dose: 0.5 mcg/kg/min, 12.383 mls/hr Micafungin Sodium 100 mg/ (Sodium Chloride) 100 mls @ 100 mls/hr IV DAILY [facility]; Protocol Stop: 03/21/18 10:01 Last Admin: 03/17/18 10:16 Dose: 100 mls/hr Lidocaine (Lidoderm) 1 ea TD DAILY [facility] Last Admin: 03/17/18 10:17 Dose: 1 ea Loratadine (Claritin) 10 mg PO DAILY [facility] Last Admin: 03/17/18 10:16 Dose: 10 mg Metoprolol Succinate (Toprol Xl) 12.5 mg PO QPM [facility] Last Admin: 03/11/18 18:07 Dose: 12.5 mg Nystatin (Nystatin Oral Susp) 5 ml PO QID [facility] Last Admin: 03/17/18 18:38 Dose: 5 ml Oxycodone/Acetaminophen (Percocet 10/325 Mg Tab) 1 tab PO BID PRN PRN Reason: Pain, severe (8-10) Last Admin: 03/17/18 19:55 Dose: 1 tab Warfarin Sodium (Coumadin) 2 mg PO 1800 [facility]; Protocol Last Admin: 03/17/18 18:38 Dose: 2 mg - Labs Labs: 03/17/18 06:30 03/17/18 06:30 PT 32.2 SECONDS (9.4-12.5) H 03/17/18 06:30 INR 2.74 03/17/18 06:30 - Constitutional Appears: No Acute Distress, Chronically Ill - Head Exam Head Exam: NORMAL INSPECTION - Respiratory Exam Respiratory Exam: Decreased Breath Sounds - Cardiovascular Exam Cardiovascular Exam: +S1, +S2 - GI/Abdominal Exam GI & Abdominal Exam: Soft. 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 glabrata fungemia and Enterococcus bacteremia probably from PICC line, unable to rule out endocarditis history of Sepsis due to right breast cellulitis/mastitis with purulent discharge, growing Serratia history of bilateral breast mastitis growing coagulase negative Staph and Klebsiella pneumoniae history of vaginal candidiasis SLE history of pulmonary emboli CVA asthma S/P ICD placement Plan has had 4 days of Cefepime and Doxycycline; reviewed CXR which did not show infiltrates continue Mycamine; repeat blood cx are still positive - 2D echo is negative for vegetations - will repeat blood cx and may need RANJEET PICC has been removed and new one placed; should get 4-6 weeks of Mycamine from first negative blood cx with weekly CRP, CBC, CMP; should also get repeat blood cx after the course of Mycamine should get Ophtho exam to rule out endophthalmitis will continue to monitor clinically Overall prognosis is poor
[2018-03-18] MEDS: Milrinone 20mg/100ml D5W 100 ML IV PRN ×3 (01:53→16:49)
[2018-03-18 07:31] LABS: BASO # 0.01 K/mm3 (0.0-2.0); BASO % 0.1 % (0.0-3.0); EOS % 0.2 % (1.5-5.0); GRAN # 8.72 (1.4-6.5); GRAN % 75.3 % (50.0-68.0); LYMPH # 2.1 (1.2-3.4); LYMPH % 18.3 % (22.0-35.0); MEAN CELL VOLUME 82.8 fl (80.0-105.0); MEAN CORPUSCULAR HEMOGLOBIN 24.6 pg (25.0-35.0); MEAN CORPUSCULAR HGB CONC 29.8 g/dl (31.0-37.0); MEAN PLATELET VOLUME 10.2 fl (7.0-11.0); MONO # 0.7 (0.1-0.6); MONO % 6.1 % (1.0-6.0); RBC 4.06 10^6/uL (3.5-6.1); RED CELL DISTRIBUTION WIDTH 16.4 % (11.5-14.5); WHITE BLOOD COUNT 11.6 10^3/ul (4.5-11.0)
[2018-03-18 07:34] LABS: INR 2.04; PROTHROMBIN TIME 23.8 SECONDS (9.4-12.5)
[2018-03-18 08:06] LABS: ALB/GLOB RATIO 0.9 (1.1-1.8); ALBUMIN 3.2 g/dL (3.0-4.8); ALT/SGPT 28 U/L (7-56); AST/SGOT 20 U/L (14-36); BLOOD UREA NITROGEN 24 mg/dL (7-21); CALCIUM 8.3 mg/dL (8.4-10.5); GFR NON-AFRICAN AMERICAN > 60
[2018-03-18] MEDS: Albuterol-Ipratrop 3 mg / 0.5 (3 ml) UD IH PRN (08:23)
--- NOTE | 2018-03-18 09:43 | PN ---
DATE: 03/18/2018 CARDIOLOGY FOLLOWUP SUBJECTIVE: The patient is without shortness of breath. A new PICC line is in. PHYSICAL EXAMINATION: VITAL SIGNS: Blood pressure is 119/81, the heart rate is in the 70s. NECK: Negative JVD. LUNGS: Without rales. HEART: Reveals S1, S2. EXTREMITIES: Without edema. LABORATORY DATA: Hemoglobin is 10, white count is 11.6. BUN and creatinine are unremarkable. IMPRESSION: 1. Status post peripherally inserted central catheter line. 2. Line sepsis. 3. Bacteremia. 4. End-stage dilated cardiomyopathy. 5. The patient is on chronic home milrinone. PLAN: Given these findings, we will discontinue telemetry. From a cardiac perspective, the patient can be discharged and followed up at [facility] ([facility] in the heart failure program. Rm Alvarez MD
[2018-03-18] MEDS: Benzocaine/Menthol (Cepacol) Lozenge MT SCH ×4 (10:25→21:34)
[2018-03-18] MEDS: Nystatin 100,000 Units/ml Oral Susp 5 ml UD PO SCH ×4 (10:29→21:34)
[2018-03-18] MEDS: Micafungin 100 MG in Sodium Chloride 0.9% 100 ML IV SCH (10:29)
[2018-03-18] MEDS: Lidocaine 5% Patch TD SCH (10:33)
--- NOTE | 2018-03-18 14:18 | CP.PCM.PN ---
<Kyle Simon - Last Filed: 03/18/18 14:27> Subjective - Date & Time of Evaluation Date of Evaluation: 03/18/18 Time of Evaluation: 14:15 - Subjective Subjective: Pt seen and examined. Pt reports back pain which she describes as muscle spasms Objective - Vital Signs/Intake and Output Vital Signs (last 24 hours): Temp Pulse Resp BP Pulse Ox 97.9 F 75 17 125/68 98 03/18/18 12:00 03/18/18 12:00 03/18/18 12:00 03/18/18 12:00 03/18/18 06:00 Intake and Output: 03/18/18 03/18/18 06:59 18:59 Intake Total 1800 100 Output Total 300 Balance 1500 100 - Medications Medications: Current Medications Acetaminophen (Tylenol 325mg Tab) 650 mg PO Q6H PRN PRN Reason: Fever >100.4 F Last Admin: 03/16/18 10:20 Dose: 650 mg Acetaminophen (Tylenol 325mg Tab) 650 mg PO Q6 PRN PRN Reason: Pain, moderate (4-7) Albuterol/Ipratropium (Duoneb 3 Mg/0.5 Mg (3 Ml) Ud) 3 ml IH [id number] PRN PRN Reason: Shortness of Breath Last Admin: 03/18/18 08:23 Dose: 3 ml Amiodarone HCl (Cordarone) 200 mg PO DAILY [facility] Last Admin: 03/18/18 10:29 Dose: 200 mg Benzocaine/Menthol (Cepacol Sore Throat) 1 amber MT QID [facility] Last Admin: 03/18/18 10:25 Dose: 1 amber Bumetanide (Bumex) 1 mg PO BID [facility] Last Admin: 03/11/18 18:07 Dose: 1 mg Camphor/Menthol (Bengay) 0.1 gm TOP QID PRN PRN Reason: Muscle spasm Last Admin: 03/15/18 02:27 Dose: 0.1 gm Cyclobenzaprine HCl (Flexeril) 5 mg PO TID [facility] Furosemide (Lasix) 40 mg PO BID [facility] Last Admin: 03/18/18 10:29 Dose: 40 mg Hydrocortisone (Cortef) 30 mg PO BID [facility] Last Admin: 03/18/18 10:25 Dose: 30 mg Milrinone Lactate/Dextrose (Primacor 20mg/100ml D5w) 100 mls @ 12.383 mls/hr IV .Q8H5M PRN; Protocol PRN Reason: TITRATE PER MD ORDER Last Admin: 03/18/18 10:33 Dose: 0.5 mcg/kg/min, 12.383 mls/hr Micafungin Sodium 100 mg/ (Sodium Chloride) 100 mls @ 100 mls/hr IV DAILY [facility]; Protocol Stop: 03/21/18 10:01 Last Admin: 03/18/18 10:29 Dose: 100 mls/hr Lidocaine (Lidoderm) 1 ea TD DAILY [facility] Last Admin: 03/18/18 10:33 Dose: 1 ea Loratadine (Claritin) 10 mg PO DAILY [facility] Last Admin: 03/18/18 10:29 Dose: 10 mg Metoprolol Succinate (Toprol Xl) 12.5 mg PO QPM [facility] Last Admin: 03/11/18 18:07 Dose: 12.5 mg Nystatin (Nystatin Oral Susp) 5 ml PO QID [facility] Last Admin: 03/18/18 10:29 Dose: 5 ml Oxycodone/Acetaminophen (Percocet 5/325 Mg Tab) 1 tab PO BID PRN PRN Reason: Pain, moderate (4-7) Stop: 03/21/18 12:36 Warfarin Sodium (Coumadin) 2 mg PO 1800 [facility]; Protocol Last Admin: 03/17/18 18:38 Dose: 2 mg - Labs Labs: 03/18/18 06:00 03/18/18 06:00 PT 23.8 SECONDS (9.4-12.5) H 03/18/18 06:00 INR 2.04 03/18/18 06:00 - Constitutional Appears: Well, No Acute Distress - Head Exam Head Exam: ATRAUMATIC, NORMAL INSPECTION, NORMOCEPHALIC - Eye Exam Eye Exam: EOMI - ENT Exam ENT Exam: Mucous Membranes Moist, Normal Exam - Cardiovascular Exam Cardiovascular Exam: RRR, +S1, +S2. absent: Diastolic murmur, Murmur - GI/Abdominal Exam GI & Abdominal Exam: Soft, Normal Bowel Sounds. absent: Tenderness, Rebound - Extremities Exam Extremities Exam: Full ROM. absent: Calf Tenderness, Pedal Edema - Neurological Exam Neurological Exam: Alert, Awake, Oriented x3 - Psychiatric Exam Psychiatric exam: Normal Affect, Normal Mood - Skin Skin Exam: Dry, Intact, Warm Assessment and Plan - Assessment and Plan (Free Text) Assessment: Pt is a 52yo female, with a PMH of SLE, adrenal insufficiency on chronic steroids, CHF 2/2 non-ischemic cardiomyopathy EF 15% s/p AICD, [place] [address] Kahn, endocarditis, on heart transplant list RWJ, PFO, ASD, on Warfarin, CVA x2 w/ residual right-sided weakness, non-malignant breast calcifications B/L, PE, anxiety, depression & R breast cellulites, who was admitted for evaluation and treatment of flu-like symptoms, weakness and body aches. Plan: Fungemia - ECHO: EF 13.5%, no evidence of valvular vegetations - upper extremity ultrasound: no evidence of DVT, does show superficial thrombophlebitis - Repeat blood cultures: c. glabrata - new picc placed yesterday - ID following Leg Pain - LEUS: negative for DVT History of Adrenal Insufficiency - hydrocortisone 30mg BID End Stage Dilated Cardiomyopathy, Questionable Hx of Atrial Fibrillation - milrinone drip - hold home metoprolol and bumetanide due to hypotension - continue warfarin, daily INR 2.04 - cardiology, Tele discontinued, cleared pt for discharge, recommend following up with [facility] heart failure program Nasal Congestion, Difficulty Breathing - claritin - duonebs Chronic Back Pain - start flexiril 5 TID - percocet 5, BID PRN only if MAP > 65 Pt seen, examined, assessment and plan discussed with Dr Modesto Simon PGY1, Internal Medicine Resident <Alicia Salvador - Last Filed: 03/18/18 14:43> Objective - Vital Signs/Intake and Output Vital Signs (last 24 hours): Temp Pulse Resp BP Pulse Ox 97.9 F 75 17 125/68 98 03/18/18 12:00 03/18/18 12:00 03/18/18 12:00 03/18/18 12:00 03/18/18 06:00 Intake and Output: 03/18/18 03/18/18 06:59 18:59 Intake Total 1800 100 Output Total 300 Balance 1500 100 - Medications Medications: Current Medications Acetaminophen (Tylenol 325mg Tab) 650 mg PO Q6H PRN PRN Reason: Fever >100.4 F Last Admin: 03/16/18 10:20 Dose: 650 mg Acetaminophen (Tylenol 325mg Tab) 650 mg PO Q6 PRN PRN Reason: Pain, moderate (4-7) Albuterol/Ipratropium (Duoneb 3 Mg/0.5 Mg (3 Ml) Ud) 3 ml IH [id number] PRN PRN Reason: Shortness of Breath Last Admin: 03/18/18 08:23 Dose: 3 ml Amiodarone HCl (Cordarone) 200 mg PO DAILY [facility] Last Admin: 03/18/18 10:29 Dose: 200 mg Benzocaine/Menthol (Cepacol Sore Throat) 1 amber MT QID [facility] Last Admin: 03/18/18 10:25 Dose: 1 amber Bumetanide (Bumex) 1 mg PO BID [facility] Last Admin: 03/11/18 18:07 Dose: 1 mg Camphor/Menthol (Bengay) 0.1 gm TOP QID PRN PRN Reason: Muscle spasm Last Admin: 03/15/18 02:27 Dose: 0.1 gm Cyclobenzaprine HCl (Flexeril) 5 mg PO TID [facility] Last Admin: 03/18/18 14:24 Dose: 5 mg Furosemide (Lasix) 40 mg PO BID [facility] Last Admin: 03/18/18 10:29 Dose: 40 mg Hydrocortisone (Cortef) 30 mg PO BID [facility] Last Admin: 03/18/18 10:25 Dose: 30 mg Milrinone Lactate/Dextrose (Primacor 20mg/100ml D5w) 100 mls @ 12.383 mls/hr IV .Q8H5M PRN; Protocol PRN Reason: TITRATE PER MD ORDER Last Admin: 03/18/18 10:33 Dose: 0.5 mcg/kg/min, 12.383 mls/hr Micafungin Sodium 100 mg/ (Sodium Chloride) 100 mls @ 100 mls/hr IV DAILY [facility]; Protocol Stop: 03/21/18 10:01 Last Admin: 03/18/18 10:29 Dose: 100 mls/hr Lidocaine (Lidoderm) 1 ea TD DAILY [facility] Last Admin: 03/18/18 10:33 Dose: 1 ea Loratadine (Claritin) 10 mg PO DAILY [facility] Last Admin: 03/18/18 10:29 Dose: 10 mg Metoprolol Succinate (Toprol Xl) 12.5 mg PO QPM [facility] Last Admin: 03/11/18 18:07 Dose: 12.5 mg Nystatin (Nystatin Oral Susp) 5 ml PO QID [facility] Last Admin: 03/18/18 10:29 Dose: 5 ml Oxycodone/Acetaminophen (Percocet 5/325 Mg Tab) 1 tab PO BID PRN PRN Reason: Pain, moderate (4-7) Stop: 03/21/18 12:36 Warfarin Sodium (Coumadin) 2 mg PO 1800 [facility]; Protocol Last Admin: 03/17/18 18:38 Dose: 2 mg - Labs Labs: 03/18/18 06:00 03/18/18 06:00 PT 23.8 SECONDS (9.4-12.5) H 03/18/18 06:00 INR 2.04 03/18/18 06:00 Attending/Attestation - Attestation I have personally seen and examined this patient.: Yes I have fully participated in the care of the patient.: Yes I have reviewed all pertinent clinical information, including history, physical exam and plan: Yes Notes (Text): 03/18/18 14:40 52 year old female with past medical history of SLE, adrenal insufficiency on chronic steroids, and cardiomyopathy s/p AICD on milrinone who presented with URI symptoms. She was found to have fungemia with blood cultures + for juan m glabrata. She is on micafungin and cefepime. ID is following. Repeat blood cultures from 03/14 also came back positive x 2 for juan m glabrata. Repeat set of blood cultures from 03/17 are negative x 24 hrs. Case discussed with ID who recommended to wait for negative blood cultures prior to discharge. This was discussed with the patient. Echocardiogram was reviewed; no mention of vegetations. Picc line was removed and replaced. Cardiology is also following. Patient is on milrinone drip and coumadin. Alicia Salvador MD Hospitalist.
[2018-03-18] MEDS: Oxycodone/Acetaminophen 5/325 mg Tab PO PRN (18:06)
--- NOTE | 2018-03-18 19:23 | PN ---
DATE: 03/18/2018 SUBJECTIVE: The patient is in bed, was seen earlier today in 275, bed 2. No fevers, no chills. PHYSICAL EXAMINATION: VITAL SIGNS: Temperature is 98, blood pressure is 120/70, respiratory rate of 20, heart rate of 74. HEENT: Unremarkable. NECK: Supple. LUNGS: Have decreased breath sounds. HEART: Normal S1, S2. ABDOMEN: Soft, nontender. LABORATORY DATA: Reveals a white count of 11,600. Chemistries reveal the BUN of 24, creatinine of 0.9, procalcitonin is noted to be 0.3, and urinalysis is noted. Influenza is negative. Microbiology reveals Ashley glabrata in the blood cultures and repeat blood cultures are negative from yesterday. Review of orders reveal the patient to be on Cortef, Mycamine, which requires renewal, which I will do so. ASSESSMENT AND PLAN: This is a 52-year-old female with sepsis secondary to Ashley glabrata fungemia secondary to a line infection. No vegetations on implantable cardioverter-defibrillator or heart valve on 2D echocardiogram, with acute bronchitis as well as upper respiratory tract infection and no evidence of pneumonia and the patient with a history of Ashley parapsilosis and glabrata fungemia and Enterococcus bacteremia from a peripherally inserted central catheter line and the patient with lupus, history of pulmonary emboli, cerebrovascular accident, implantable cardioverter-defibrillator replacement with needed transesophageal echocardiography with needed at least 4-6 weeks of Mycamine from the time the cultures are negative and need an ophthalmology examination to rule out endophthalmitis, currently on Mycamine. Close followup with transesophageal echocardiography, ophthalmology exam, removal of the line. Cristóbal Snowden MD
[2018-03-19] MEDS: Milrinone 20mg/100ml D5W 100 ML IV PRN ×3 (01:00→17:45)
--- NOTE | 2018-03-19 05:52 | CP.PCM.PN ---
<Kyle Simon - Last Filed: 03/19/18 12:27> Subjective - Date & Time of Evaluation Date of Evaluation: 03/19/18 Time of Evaluation: 05:50 - Subjective Subjective: Pt seen and examined at bedside. Denies fever, chills. Reports back pain is well controlled Objective - Vital Signs/Intake and Output Vital Signs (last 24 hours): Temp Pulse Resp BP Pulse Ox 98.0 F 66 18 101/70 95 03/19/18 05:44 03/19/18 05:44 03/19/18 05:44 03/19/18 05:44 03/19/18 05:44 Intake and Output: 03/18/18 03/19/18 18:59 06:59 Intake Total 200 609 Balance 200 609 - Medications Medications: Current Medications Acetaminophen (Tylenol 325mg Tab) 650 mg PO Q6H PRN PRN Reason: Fever >100.4 F Last Admin: 03/16/18 10:20 Dose: 650 mg Acetaminophen (Tylenol 325mg Tab) 650 mg PO Q6 PRN PRN Reason: Pain, moderate (4-7) Albuterol/Ipratropium (Duoneb 3 Mg/0.5 Mg (3 Ml) Ud) 3 ml IH [id number] PRN PRN Reason: Shortness of Breath Last Admin: 03/18/18 08:23 Dose: 3 ml Alprazolam (Xanax) 0.25 mg PO QID PRN; Protocol PRN Reason: Anxiety Stop: 03/25/18 22:01 Last Admin: 03/18/18 21:33 Dose: 0.25 mg Amiodarone HCl (Cordarone) 200 mg PO DAILY [facility] Last Admin: 03/18/18 10:29 Dose: 200 mg Benzocaine/Menthol (Cepacol Sore Throat) 1 amber MT QID [facility] Last Admin: 03/18/18 21:34 Dose: 1 amber Bumetanide (Bumex) 1 mg PO BID [facility] Last Admin: 03/11/18 18:07 Dose: 1 mg Camphor/Menthol (Bengay) 0.1 gm TOP QID PRN PRN Reason: Muscle spasm Last Admin: 03/15/18 02:27 Dose: 0.1 gm Cyclobenzaprine HCl (Flexeril) 5 mg PO TID [facility] Last Admin: 03/18/18 18:14 Dose: Not Given Furosemide (Lasix) 40 mg PO BID [facility] Last Admin: 03/18/18 18:06 Dose: 40 mg Hydrocortisone (Cortef) 30 mg PO BID [facility] Last Admin: 03/18/18 18:07 Dose: 30 mg Milrinone Lactate/Dextrose (Primacor 20mg/100ml D5w) 100 mls @ 12.383 mls/hr IV .Q8H5M PRN; Protocol PRN Reason: TITRATE PER MD ORDER Last Admin: 03/18/18 16:49 Dose: 0.5 mcg/kg/min, 12.383 mls/hr Micafungin Sodium 100 mg/ (Sodium Chloride) 100 mls @ 100 mls/hr IV DAILY [facility]; Protocol Stop: 03/21/18 10:01 Last Admin: 03/18/18 10:29 Dose: 100 mls/hr Lidocaine (Lidoderm) 1 ea TD DAILY [facility] Last Admin: 03/18/18 10:33 Dose: 1 ea Loratadine (Claritin) 10 mg PO DAILY [facility] Last Admin: 03/18/18 10:29 Dose: 10 mg Metoprolol Succinate (Toprol Xl) 12.5 mg PO QPM [facility] Last Admin: 03/11/18 18:07 Dose: 12.5 mg Nystatin (Nystatin Oral Susp) 5 ml PO QID [facility] Last Admin: 03/18/18 21:34 Dose: 5 ml Oxycodone/Acetaminophen (Percocet 5/325 Mg Tab) 1 tab PO BID PRN PRN Reason: Pain, moderate (4-7) Stop: 03/21/18 12:36 Last Admin: 03/18/18 18:06 Dose: 1 tab Warfarin Sodium (Coumadin) 2 mg PO 1800 [facility]; Protocol Last Admin: 03/18/18 18:05 Dose: 2 mg - Labs Labs: 03/18/18 06:00 03/18/18 06:00 PT 23.8 SECONDS (9.4-12.5) H 03/18/18 06:00 INR 2.04 03/18/18 06:00 - Constitutional Appears: Non-toxic, No Acute Distress - Head Exam Head Exam: ATRAUMATIC, NORMAL INSPECTION, NORMOCEPHALIC - Eye Exam Eye Exam: EOMI - ENT Exam ENT Exam: Mucous Membranes Moist - Neck Exam Neck Exam: Full ROM - Respiratory Exam Respiratory Exam: Clear to Ausculation Bilateral, NORMAL BREATHING PATTERN. absent: Accessory Muscle Use, Wheezes, Respiratory Distress, Stridor - Cardiovascular Exam Cardiovascular Exam: REGULAR RHYTHM, +S1, +S2. absent: Diastolic murmur, Murmur - GI/Abdominal Exam GI & Abdominal Exam: Soft, Normal Bowel Sounds. absent: Tenderness - Extremities Exam Extremities Exam: Full ROM. absent: Calf Tenderness, Pedal Edema - Neurological Exam Neurological Exam: Alert, Oriented x3 - Psychiatric Exam Psychiatric exam: Normal Affect, Normal Mood - Skin Skin Exam: Dry, Normal Color, Warm Assessment and Plan - Assessment and Plan (Free Text) Assessment: Pt is a 52yo female, with a PMH of SLE, adrenal insufficiency on chronic steroids, CHF 2/2 non-ischemic cardiomyopathy EF 15% s/p AICD, recent generator [place] [address] Kahn, endocarditis, on heart transplant list [facility], PFO, ASD, on Warfarin, CVA x2 w/ residual right-sided weakness, non-malignant breast calcifications B/L, PE, anxiety, depression & R breast cellulites, who was admitted for evaluation and treatment of flu-like symptoms, weakness and body aches. Plan: Fungemia - ECHO: EF 13.5%, no evidence of valvular vegetations - upper extremity US: no evidence of DVT, does show superficial thrombophlebitis - Blood cultures: c. glabrata - repeat blood cultures: NGTD - ID, recommends 4-6 weeks of micafungin Leg Pain - LEUS: negative for DVT History of Adrenal Insufficiency - hydrocortisone 30mg BID End Stage Dilated Cardiomyopathy, Questionable Hx of Atrial Fibrillation - milrinone drip - continue warfarin, daily INR 2.23 - hold home metoprolol and bumetanide due to hypotension - cardiology, Tele discontinued, cleared pt for discharge, recommend following up with [facility] heart failure program Nasal Congestion, Difficulty Breathing - claritin - duonebs Chronic Back Pain - percocet 5, BID PRN only if MAP > 65 Pt seen, examined, assessment and plan discussed with Dr Modesto Simon PGY1 <Alicia Salvador - Last Filed: 03/19/18 13:15> Objective - Vital Signs/Intake and Output Vital Signs (last 24 hours): Temp Pulse Resp BP Pulse Ox 98.0 F 71 18 106/78 95 03/19/18 05:44 03/19/18 09:28 03/19/18 05:44 03/19/18 09:28 03/19/18 05:44 Intake and Output: 03/19/18 03/19/18 06:59 18:59 Intake Total 1637 100 Output Total 3 Balance 1634 100 - Medications Medications: Current Medications Acetaminophen (Tylenol 325mg Tab) 650 mg PO Q6H PRN PRN Reason: Fever >100.4 F Last Admin: 03/16/18 10:20 Dose: 650 mg Acetaminophen (Tylenol 325mg Tab) 650 mg PO Q6 PRN PRN Reason: Pain, moderate (4-7) Albuterol/Ipratropium (Duoneb 3 Mg/0.5 Mg (3 Ml) Ud) 3 ml IH [id number] PRN PRN Reason: Shortness of Breath Last Admin: 03/18/18 08:23 Dose: 3 ml Alprazolam (Xanax) 0.25 mg PO QID PRN; Protocol PRN Reason: Anxiety Stop: 03/25/18 22:01 Last Admin: 03/19/18 09:25 Dose: 0.25 mg Amiodarone HCl (Cordarone) 200 mg PO DAILY [facility] Last Admin: 03/19/18 09:28 Dose: 200 mg Benzocaine/Menthol (Cepacol Sore Throat) 1 amber MT QID [facility] Last Admin: 03/19/18 09:28 Dose: 1 amber Bumetanide (Bumex) 1 mg PO BID [facility] Last Admin: 03/11/18 18:07 Dose: 1 mg Camphor/Menthol (Bengay) 0.1 gm TOP QID PRN PRN Reason: Muscle spasm Last Admin: 03/15/18 02:27 Dose: 0.1 gm Furosemide (Lasix) 40 mg PO BID [facility] Last Admin: 03/19/18 09:28 Dose: 40 mg Hydrocortisone (Cortef) 30 mg PO BID [facility] Last Admin: 03/19/18 09:24 Dose: 30 mg Milrinone Lactate/Dextrose (Primacor 20mg/100ml D5w) 100 mls @ 12.383 mls/hr IV .Q8H5M PRN; Protocol PRN Reason: TITRATE PER MD ORDER Last Admin: 03/19/18 09:32 Dose: 0.5 mcg/kg/min, 12.383 mls/hr Micafungin Sodium 100 mg/ (Sodium Chloride) 100 mls @ 100 mls/hr IV DAILY [facility]; Protocol Stop: 03/21/18 10:01 Last Admin: 03/19/18 11:28 Dose: 100 mls/hr Lidocaine (Lidoderm) 1 ea TD DAILY [facility] Last Admin: 03/19/18 09:30 Dose: 1 ea Loratadine (Claritin) 10 mg PO DAILY [facility] Last Admin: 03/19/18 09:28 Dose: 10 mg Metoprolol Succinate (Toprol Xl) 12.5 mg PO QPM [facility] Last Admin: 03/11/18 18:07 Dose: 12.5 mg Nystatin (Nystatin Oral Susp) 5 ml PO QID [facility] Last Admin: 03/19/18 09:25 Dose: 5 ml Oxycodone/Acetaminophen (Percocet 5/325 Mg Tab) 1 tab PO BID PRN PRN Reason: Pain, moderate (4-7) Stop: 03/21/18 12:36 Last Admin: 03/18/18 18:06 Dose: 1 tab Warfarin Sodium (Coumadin) 2 mg PO 1800 [facility]; Protocol Last Admin: 03/18/18 18:05 Dose: 2 mg - Labs Labs: 03/19/18 06:30 03/19/18 06:30 PT 26.1 SECONDS (9.4-12.5) H 03/19/18 06:30 INR 2.23 03/19/18 06:30 Attending/Attestation - Attestation I have personally seen and examined this patient.: Yes I have fully participated in the care of the patient.: Yes I have reviewed all pertinent clinical information, including history, physical exam and plan: Yes Notes (Text): 03/19/18 13:14 52 year old female with past medical history of SLE, adrenal insufficiency on chronic steroids, and cardiomyopathy s/p AICD on milrinone who presented with URI symptoms. She was found to have fungemia with blood cultures + for juan m glabrata. She is on micafungin. ID is following. Repeat blood cultures from 03/14 also came back positive x 2 for juan m glabrata. Repeat set of blood cultures from 03/17 however are negative x 24 hrs. Case discussed with ID who recommended to wait for negative blood cultures prior to discharge. This was discussed with the patient. Echocardiogram was reviewed; no mention of vegetations. Picc line was removed and replaced. Cardiology is also following. Patient is on milrinone drip and coumadin. Alicia Salvador MD Hospitalist.
[2018-03-19 07:54] LABS: BASO # 0.01 K/mm3 (0.0-2.0); BASO % 0.1 % (0.0-3.0); EOS % 0.3 % (1.5-5.0); GRAN # 7.13 (1.4-6.5); GRAN % 72.9 % (50.0-68.0); HEMOGLOBIN 9.6 g/dL (12.0-16.0); LYMPH % 20.7 % (22.0-35.0); MEAN CELL VOLUME 82.5 fl (80.0-105.0); MEAN CORPUSCULAR HEMOGLOBIN 23.9 pg (25.0-35.0); MEAN PLATELET VOLUME 11.1 fl (7.0-11.0); MONO # 0.6 (0.1-0.6); RBC 4.01 10^6/uL (3.5-6.1); RED CELL DISTRIBUTION WIDTH 16.7 % (11.5-14.5); WHITE BLOOD COUNT 9.8 10^3/ul (4.5-11.0)
[2018-03-19 08:02] LABS: INR 2.23; PROTHROMBIN TIME 26.1 SECONDS (9.4-12.5)
[2018-03-19 08:03] LABS: ALB/GLOB RATIO 0.9 (1.1-1.8); ALT/SGPT 29 U/L (7-56); AST/SGOT 16 U/L (14-36); BLOOD UREA NITROGEN 23 mg/dL (7-21); CALCIUM 8.1 mg/dL (8.4-10.5); GFR NON-AFRICAN AMERICAN > 60
[2018-03-19] MEDS: Nystatin 100,000 Units/ml Oral Susp 5 ml UD PO SCH ×4 (09:25→21:51)
[2018-03-19] MEDS: Benzocaine/Menthol (Cepacol) Lozenge MT SCH ×4 (09:28→21:51)
[2018-03-19] MEDS: Lidocaine 5% Patch TD SCH (09:30)
[2018-03-19] MEDS: Micafungin 100 MG in Sodium Chloride 0.9% 100 ML IV SCH (11:28)
[2018-03-19] MEDS: Oxycodone/Acetaminophen 5/325 mg Tab PO PRN (14:28)
--- NOTE | 2018-03-19 17:43 | PN ---
DATE: 03/19/2018 The patient is in bed, in no acute distress, nontoxic, seen earlier today in 275, Bed 2. No fevers and no chills. PHYSICAL EXAMINATION: Temperature is 98, blood pressure is 101/70, respiratory rate of 18, heart rate of 80. Examination of HEENT is unremarkable. Neck is supple. Lungs have decreased breath sounds. Heart exam normal S1, S2. Abdominal examination is soft, nontender. LABORATORY EXAMINATION: Reveals a white count of 9.8, hemoglobin of 9, platelets of 214. BUN of 23, creatinine of 0.8. Procalcitonin is 0.31. Urinalysis is noted and blood cultures are no growth on the 03/17/2018, initial and repeat ones showed Ashley glabrata. Review of orders reveals the patient to be on Mycamine. ASSESSMENT/PLAN: This is a 52-year-old female seen earlier today in 275, Bed 2, with sepsis with Ashley glabrata fungemia secondary to a line infection. No evidence of vegetations on the 2-D echo. The patient with acute bronchitis, upper respiratory tract infection, no evidence of pneumonia. The patient has a history of Ashley parapsilosis and glabrata fungemia, history of Enterococcus bacteremia from a PICC line, and in the setting of lupus and pulmonary emboli, cerebrovascular accident, automatic implantable cardioverter-defibrillator , he will need a transesophageal echo, will need 4-6 weeks of Mycamine since it was a prolonged fungemia and ophtho exam is required, currently on day #2 since the repeat cultures became negative on the 03/17/2018. We will continue the Mycamine, follow sed rate, C-reactive protein, eye exam, and transesophageal echo. We will discuss with primary medical doctor. In a patient with cardiomyopathy with ejection fraction of 15%, status post automatic implantable cardioverter-defibrillator placement and change in 2012, the patient is on the heart transplant list for [facility]. We will follow with you. Cristóbal Snowden MD
--- NOTE | 2018-03-20 | PN ---
DATE: 03/19/2018 PHYSICAL EXAMINATION: VITAL SIGNS: The patient is afebrile, blood pressure is 106/78. NECK: Negative JVD. LUNGS: Without rales. HEART: S1, S2. EXTREMITIES: Without edema. LABORATORY DATA: Hemoglobin is 9.6, white count is 9.8. BUN and creatinine unremarkable. IMPRESSION: 1. End-stage dilated cardiomyopathy. 2. Bacteremia. 3. History of defibrillator placement. 4. Resolution of congestive heart failure. PLAN: Given these findings, from cardiac perspective, the patient can be discharged home on milrinone with the appropriate antibiotics. Rm Alvarez MD
[2018-03-20] MEDS: Milrinone 20mg/100ml D5W 100 ML IV PRN ×2 (01:22→10:12)
[2018-03-20] MEDS: Oxycodone/Acetaminophen 5/325 mg Tab PO PRN (01:23)
[2018-03-20 06:28] VITALS: O2SAT 98
[2018-03-20 06:35] LABS: INR 2.13; PROTHROMBIN TIME 24.9 SECONDS (9.4-12.5)
[2018-03-20 06:58] LABS: BASO # 0.01 K/mm3 (0.0-2.0); BASO % 0.1 % (0.0-3.0); EOS % 0.4 % (1.5-5.0); GRAN # 6.65 (1.4-6.5); HEMOGLOBIN 10.3 g/dL (12.0-16.0); LYMPH % 21.7 % (22.0-35.0); MEAN CELL VOLUME 83.3 fl (80.0-105.0); MEAN CORPUSCULAR HEMOGLOBIN 24.5 pg (25.0-35.0); MEAN CORPUSCULAR HGB CONC 29.4 g/dl (31.0-37.0); MEAN PLATELET VOLUME 10.5 fl (7.0-11.0); MONO # 0.6 (0.1-0.6); MONO % 6.8 % (1.0-6.0); RBC 4.2 10^6/uL (3.5-6.1); RED CELL DISTRIBUTION WIDTH 16.7 % (11.5-14.5); WHITE BLOOD COUNT 9.4 10^3/ul (4.5-11.0)
[2018-03-20 07:22] LABS: ALB/GLOB RATIO 0.9 (1.1-1.8); ALBUMIN 3.4 g/dL (3.0-4.8); ALT/SGPT 24 U/L (7-56); AST/SGOT 20 U/L (14-36); BLOOD UREA NITROGEN 24 mg/dL (7-21); CALCIUM 8.2 mg/dL (8.4-10.5); GFR NON-AFRICAN AMERICAN 59
[2018-03-20] MEDS: Micafungin 100 MG in Sodium Chloride 0.9% 100 ML IV SCH (10:04)
[2018-03-20] MEDS: Lidocaine 5% Patch TD SCH (10:09)
[2018-03-20] MEDS: Benzocaine/Menthol (Cepacol) Lozenge MT SCH ×2 (10:09→14:21)
[2018-03-20] MEDS: Nystatin 100,000 Units/ml Oral Susp 5 ml UD PO SCH ×2 (10:09→14:21)
--- NOTE | 2018-03-20 12:58 | PN ---
DATE: 03/20/2018 SUBJECTIVE: The patient is without shortness of breath. PHYSICAL EXAMINATION: VITAL SIGNS: The patient is afebrile. NECK: Negative JVD. LUNGS: Without rales. HEART: S1, S2. EXTREMITIES: Without edema. LABORATORY DATA: Unremarkable. IMPRESSION: 1. Line infection. 2. End-stage dilated cardiomyopathy. 3. Resolution of congestive heart failure. 4. No more dyspnea. Given these findings, we will discontinue telemetry today. From a cardiac perspective, the patient can be discharged. She will follow up with the heart transplant program at [facility]. Rm Alvarez MD
[2018-03-20 13:02] VITALS: BP 127/88; PULSE 78; RESP 98; TEMP 97.7
--- NOTE | 2018-03-20 21:07 | CP.PCM.DIS ---
<Kyle Simon - Last Filed: 03/20/18 21:58> Provider - Provider Date of Admission: 03/11/18 03:51 Attending physician: Alicia Salvador MD Time Spent in preparation of Discharge (in minutes): 45 Diagnosis - Discharge Diagnosis (1) Fungemia Status: Acute Priority: High (2) CHF (congestive heart failure) Status: Chronic Priority: Medium (3) Cardiomyopathy Status: Acute Priority: High Hospital Course - Lab Results Lab Results: Micro Results 03/17/18 13:15 Blood-Venous Blood Culture - Preliminary NO GROWTH AFTER 3 DAYS 03/17/18 13:00 Blood-Venous Blood Culture - Preliminary NO GROWTH AFTER 3 DAYS 03/14/18 11:00 Blood-Thru Central Line Blood Culture - Final Ashley Parapsilosis 03/14/18 11:00 Blood-Thru Central Line Gram Stain - Final 03/16/18 15:21 Other: Please Indicate Catheter Tip Culture - Final Yeast Species 03/14/18 11:15 Blood-Venous S.aureus & Coag-Neg Staph PNA FISH - Final 03/14/18 11:15 Blood-Venous Blood Culture - Final Ashley Glabrata 03/14/18 11:15 Blood-Venous Gram Stain - Final 03/11/18 03:50 Blood Blood Culture - Final Ashley Glabrata 03/11/18 03:50 Blood Gram Stain - Final 03/11/18 03:30 Blood S.aureus & Coag-Neg Staph PNA FISH - Final 03/11/18 03:30 Blood Blood Culture - Final Ashley Glabrata 03/11/18 03:30 Blood Gram Stain - Final 03/11/18 04:00 Urine Urine Culture - Final MULTIPLE SPECIES. SUGGEST REPEAT SPECIMEN. Most Recent Lab Values WBC 9.4 10^3/ul (4.5-11.0) 03/20/18 06:00 RBC 4.20 10^6/uL (3.5-6.1) 03/20/18 06:00 Hgb 10.3 g/dL (12.0-16.0) L 03/20/18 06:00 Hct 35.0 % (36.0-48.0) L 03/20/18 06:00 MCV 83.3 fl (80.0-105.0) 03/20/18 06:00 MCH 24.5 pg (25.0-35.0) L 03/20/18 06:00 MCHC 29.4 g/dl (31.0-37.0) L 03/20/18 06:00 RDW 16.7 % (11.5-14.5) H 03/20/18 06:00 Plt Count 265 10^3/uL (120.0-450.0) 03/20/18 06:00 MPV 10.5 fl (7.0-11.0) 03/20/18 06:00 Gran % 71.0 % (50.0-68.0) H 03/20/18 06:00 Lymph % (Auto) 21.7 % (22.0-35.0) L 03/20/18 06:00 [place] % (Auto) 6.8 % (1.0-6.0) H 03/20/18 06:00 Eos % (Auto) 0.4 % (1.5-5.0) L 03/20/18 06:00 Baso % (Auto) 0.1 % (0.0-3.0) 03/20/18 06:00 Gran # 6.65 (1.4-6.5) H 03/20/18 06:00 Lymph # (Auto) 2.0 (1.2-3.4) 03/20/18 06:00 [place] # (Auto) 0.6 (0.1-0.6) 03/20/18 06:00 Eos # (Auto) 0.0 (0.0-0.7) 03/20/18 06:00 Baso # (Auto) 0.01 K/mm3 (0.0-2.0) 03/20/18 06:00 Neutrophils % (Manual) 91 % (50.0-70.0) H 03/11/18 08:30 Lymphocytes % (Manual) 5 % (22.0-35.0) L 03/11/18 08:30 Atypical Lymphs % 2 % (0.0-0.0) H 03/11/18 08:30 Monocytes % (Manual) 2 % (1.0-6.0) 03/11/18 08:30 Platelet Evaluation Normal (NORMAL) 03/11/18 08:30 Large Platelets Present 03/11/18 08:30 Polychromasia Slight 03/11/18 08:30 Hypochromasia 1+ 03/11/18 08:30 Anisocytosis (manual) 1+ 03/11/18 08:30 Microcytosis (manual) 1+ 03/11/18 08:30 Ovalocytes Slight 03/11/18 08:30 PT 24.9 SECONDS (9.4-12.5) H 03/20/18 06:00 INR 2.13 03/20/18 06:00 pO2 57 mm/Hg (30-55) H 03/11/18 02:32 VBG pH 7.42 (7.32-7.43) 03/11/18 02:32 VBG pCO2 44.0 (40-60) 03/11/18 02:32 VBG HCO3 28.5 mmol/l (21-28) H 03/11/18 02:32 VBG Total CO2 29.9 mmol.L (22-28) H 03/11/18 02:32 VBG O2 Sat (Calc) 91.7 % (40-65) H 03/11/18 02:32 VBG Base Excess 3.4 mmol/L (0.0-2.0) H 03/11/18 02:32 VBG Potassium 4.3 mmol/L (3.6-5.2) 03/11/18 02:32 Sodium 140.0 mmol/L (132-148) 03/11/18 02:32 Chloride 108.0 mmol/L (98-107) H 03/11/18 02:32 Glucose 116 mg/dl (65-105) H 03/11/18 02:32 Lactate 1.8 mmol/L (0.7-2.1) 03/11/18 02:32 FiO2 21.0 % 03/11/18 02:32 Sodium 140 mmol/L (132-148) 03/20/18 06:00 Potassium 3.9 mmol/L (3.6-5.0) 03/20/18 06:00 Chloride 103 mmol/L (98-107) 03/20/18 06:00 Carbon Dioxide 32 mmol/L (21-33) 03/20/18 06:00 Anion Gap 9 (10-20) L 03/20/18 06:00 BUN 24 mg/dL (7-21) H 03/20/18 06:00 Creatinine 1.0 mg/dl (0.7-1.2) 03/20/18 06:00 Est GFR ( Amer) > 60 03/20/18 06:00 Est GFR (Non-Af Amer) 59 03/20/18 06:00 Random Glucose 87 mg/dL (70-110) 03/20/18 06:00 Calcium 8.2 mg/dL (8.4-10.5) L 03/20/18 06:00 Magnesium 2.2 mg/dL (1.7-2.2) 03/11/18 02:32 Total Bilirubin 0.2 mg/dL (0.2-1.3) 03/20/18 06:00 AST 20 U/L (14-36) 03/20/18 06:00 ALT 24 U/L (7-56) 03/20/18 06:00 Alkaline Phosphatase 109 U/L (38-126) 03/20/18 06:00 NT-Pro-B Natriuret Pep 3700 pg/mL (0-450) H 03/11/18 02:32 Total Protein 7.1 g/dL (5.8-8.3) 03/20/18 06:00 Albumin 3.4 g/dL (3.0-4.8) 03/20/18 06:00 Globulin 3.7 gm/dL 03/20/18 06:00 Albumin/Globulin Ratio 0.9 (1.1-1.8) L 03/20/18 06:00 Procalcitonin 0.31 NG/ML (0.19-0.49) 03/11/18 05:42 Venous Blood Potassium 4.3 mmol/L (3.6-5.2) 03/11/18 02:32 Urine Color Yellow (YELLOW) 03/11/18 04:00 Urine Appearance Clear (CLEAR) 03/11/18 04:00 Urine pH 6.0 (4.7-8.0) 03/11/18 04:00 Ur Specific [place] 1.015 (1.005-1.035) 03/11/18 04:00 Urine Protein Trace mg/dL (<30 mg/dL) H 03/11/18 04:00 Urine Glucose (UA) Negative mg/dL (NEGATIVE) 03/11/18 04:00 Urine Ketones Trace mg/dL (NEGATIVE) H 03/11/18 04:00 Urine Blood Negative (NEGATIVE) 03/11/18 04:00 Urine Nitrate Negative (NEGATIVE) 03/11/18 04:00 Urine Bilirubin Negative (NEGATIVE) 03/11/18 04:00 Urine Urobilinogen 1.0 E.U./dL (<1 E.U./dL) H 03/11/18 04:00 Ur Leukocyte Esterase Negative Jayant/uL (NEGATIVE) 03/11/18 04:00 Urine RBC 0 - 2 /hpf (0-2) 03/11/18 04:00 Urine WBC 0 - 2 /hpf (0-6) 03/11/18 04:00 Ur Epithelial Cells 6 - 8 /hpf (0-5) 03/11/18 04:00 Urine Bacteria Few (NEG) 03/11/18 04:00 Influenza Typ A,B (EIA) Negative for flu a/b (NEGATIVE) 03/11/18 02:32 - Hospital Course Hospital Course: Pt is a 52yo female, with a PMH of SLE, adrenal insufficiency on chronic steroids, CHF 2/2 non-ischemic cardiomyopathy EF 15% s/p AICD, recent generator [place] [address] Kahn, endocarditis, on heart transplant list RWJ, PFO, ASD, on Warfarin, CVA x2 w/ residual right-sided weakness, non-malignant breast calcifications B/L, PE, anxiety, depression & R breast cellulitis growing coagulase negative Staph and Klebsiella pneumoniae, Ashley glabrata fungemia, suspiscious of PICC line/port-related s/p port removal, who presented to the ED on 03/11/18 complaining of flu-like symptoms, weakness and body aches that began after she was discharged from the hospital 12 days prior to admission (02/27/18). She had the same bodyache, SOB symptoms during that admission. Patient stated she took Tylenol Cold which did not relieve her symptoms very well. She denied fevers, chills, chest pain, SOB, ab pain, n/v/d, back pain, neck pain, urinary symptoms, headache. CXR in the ED showed no active pulmonary disease. She was started on Vanc/Zosyn for treatment of URI in the ED. On the first night of her admission, her BP was in the 70s-80s/40s. She was given 250 NS bolus and a dose of solucortef 50 IV which brought her BP up to low 100s/80s. Her home metoprolol and bumetanide was held. She was continued on a milrinone drip and warfarin with therapeutic INR. Cardiology was consulted, who recommended follow up with [facility] heart failure program. Her Lasix were also held due to having MAIKOL, which has since resolved. During her admission, she was afebrile, normotensive, RRR, but had a leukocytosis of 17, thought to be due to steroid use. Flu was negative. ID was consulted and she was started on Cefepime and Doxycycline while awaiting blood cultures. She complete four days of Cefepime and Doxycycline. Her blood cultures grew Ashley glabrata and she was started on micafungin. A 2D echo was ordered which showed Ef 13.5%, no vegetations. Repeat blood cultures on 03/14/18 also came back positive for yeast. Her PICC was removed and replaced on 03/17/18. ID recommended to wait for negative blood cultures prior to discharge. Repeat blood cultures drawn on 03/17/18 was negative. She will be discharged with home health for treatment of her fungemia. She will need 4-6 weeks of micafungin from 03/17/18 with weekly CRP, CBC, CMP. She will also need repeat blood cultures after the course of Mycamine. It is also recommended that pt gets ophthomalogy exam to rule out endophthalmitis. During admission, pt also had one day complaint of left calf pain. Lower extremity ultrasound was negative for DVT. She also had left arm pain on a different occasion. Upper extremity ultrasound was ordered and showed no evidence of DVT, but does show superficial thrombophlebitis. Discharge Exam - Head Exam Head Exam: ATRAUMATIC, NORMAL INSPECTION, NORMOCEPHALIC - Eye Exam Eye Exam: EOMI. absent: Scleral icterus - ENT Exam ENT Exam: Mucous Membranes Moist - Neck Exam Neck exam: Full Rom, Normal Inspection - Respiratory Exam Respiratory Exam: NORMAL BREATHING PATTERN. absent: Accessory Muscle Use, Wheezes, Respiratory Distress, Stridor - Cardiovascular Exam Cardiovascular Exam: REGULAR RHYTHM, +S1, +S2. absent: Diastolic murmur, Systolic Murmur - GI/Abdominal Exam GI & Abdominal Exam: Normal Bowel Sounds, Soft. absent: Tenderness - Extremities Exam Extremities exam: full ROM Additional comments: absent calf tenderness, absent pedal edema - Neurological Exam Neurological exam: Alert, Oriented x3 - Psychiatric Exam Psychiatric exam: Normal Affect, Normal Mood - Skin Skin Exam: Dry, Normal Color, Warm Discharge Plan - Discharge Medications Prescriptions: Nystatin [Nystatin Oral Susp] 5 ml PO QID #60 ml oxyCODONE/Acetaminophen [Percocet 5/325 mg Tab] 1 ea PO BID PRN #6 tab PRN Reason: Pain, Severe (8-10) - Follow Up Plan Condition: GOOD Disposition: HOME/ ROUTINE Instructions: Heart Failure, Adult (DC), Community-Acquired Pneumonia, Adult (DC) Additional Instructions: 1. please follow up with your primary care physician within 1 week 2. please follow up with your incident response consultant within 1 week 3. please follow up with your ID physician within 1 week 4. please make sure to get weekly blood work completed, CBC, CMP, CRP 5. you will be receiving infusions of Micafungin 6. if your symptoms return or worsen, please return to your nearest emergency department Referrals: Cristóbal Snowden MD [Staff Provider] - Rm Alvarez MD [Staff Provider] - <Roberto Ramos - Last Filed: 03/21/18 13:44> Provider - Provider Date of Admission: 03/11/18 03:51 Attending physician: Alicia Salvador MD Hospital Course - Lab Results Lab Results: Micro Results 03/17/18 13:15 Blood-Venous Blood Culture - Preliminary NO GROWTH AFTER 4 DAYS 03/17/18 13:00 Blood-Venous Blood Culture - Preliminary NO GROWTH AFTER 4 DAYS 03/14/18 11:00 Blood-Thru Central Line Blood Culture - Final Ashley Parapsilosis 03/14/18 11:00 Blood-Thru Central Line Gram Stain - Final 03/16/18 15:21 Other: Please Indicate Catheter Tip Culture - Final Yeast Species 03/14/18 11:15 Blood-Venous S.aureus & Coag-Neg Staph PNA FISH - Final 03/14/18 11:15 Blood-Venous Blood Culture - Final Ashley Glabrata 03/14/18 11:15 Blood-Venous Gram Stain - Final 03/11/18 03:50 Blood Blood Culture - Final Ashley Glabrata 03/11/18 03:50 Blood Gram Stain - Final 03/11/18 03:30 Blood S.aureus & Coag-Neg Staph PNA FISH - Final 03/11/18 03:30 Blood Blood Culture - Final Ashley Glabrata 03/11/18 03:30 Blood Gram Stain - Final 03/11/18 04:00 Urine Urine Culture - Final MULTIPLE SPECIES. SUGGEST REPEAT SPECIMEN. Most Recent Lab Values WBC 9.4 10^3/ul (4.5-11.0) 03/20/18 06:00 RBC 4.20 10^6/uL (3.5-6.1) 03/20/18 06:00 Hgb 10.3 g/dL (12.0-16.0) L 03/20/18 06:00 Hct 35.0 % (36.0-48.0) L 03/20/18 06:00 MCV 83.3 fl (80.0-105.0) 03/20/18 06:00 MCH 24.5 pg (25.0-35.0) L 03/20/18 06:00 MCHC 29.4 g/dl (31.0-37.0) L 03/20/18 06:00 RDW 16.7 % (11.5-14.5) H 03/20/18 06:00 Plt Count 265 10^3/uL (120.0-450.0) 03/20/18 06:00 MPV 10.5 fl (7.0-11.0) 03/20/18 06:00 Gran % 71.0 % (50.0-68.0) H 03/20/18 06:00 Lymph % (Auto) 21.7 % (22.0-35.0) L 03/20/18 06:00 [place] % (Auto) 6.8 % (1.0-6.0) H 03/20/18 06:00 Eos % (Auto) 0.4 % (1.5-5.0) L 03/20/18 06:00 Baso % (Auto) 0.1 % (0.0-3.0) 03/20/18 06:00 Gran # 6.65 (1.4-6.5) H 03/20/18 06:00 Lymph # (Auto) 2.0 (1.2-3.4) 03/20/18 06:00 [place] # (Auto) 0.6 (0.1-0.6) 03/20/18 06:00 Eos # (Auto) 0.0 (0.0-0.7) 03/20/18 06:00 Baso # (Auto) 0.01 K/mm3 (0.0-2.0) 03/20/18 06:00 Neutrophils % (Manual) 91 % (50.0-70.0) H 03/11/18 08:30 Lymphocytes % (Manual) 5 % (22.0-35.0) L 03/11/18 08:30 Atypical Lymphs % 2 % (0.0-0.0) H 03/11/18 08:30 Monocytes % (Manual) 2 % (1.0-6.0) 03/11/18 08:30 Platelet Evaluation Normal (NORMAL) 03/11/18 08:30 Large Platelets Present 03/11/18 08:30 Polychromasia Slight 03/11/18 08:30 Hypochromasia 1+ 03/11/18 08:30 Anisocytosis (manual) 1+ 03/11/18 08:30 Microcytosis (manual) 1+ 03/11/18 08:30 Ovalocytes Slight 03/11/18 08:30 PT 24.9 SECONDS (9.4-12.5) H 03/20/18 06:00 INR 2.13 03/20/18 06:00 pO2 57 mm/Hg (30-55) H 03/11/18 02:32 VBG pH 7.42 (7.32-7.43) 03/11/18 02:32 VBG pCO2 44.0 (40-60) 03/11/18 02:32 VBG HCO3 28.5 mmol/l (21-28) H 03/11/18 02:32 VBG Total CO2 29.9 mmol.L (22-28) H 03/11/18 02:32 VBG O2 Sat (Calc) 91.7 % (40-65) H 03/11/18 02:32 VBG Base Excess 3.4 mmol/L (0.0-2.0) H 03/11/18 02:32 VBG Potassium 4.3 mmol/L (3.6-5.2) 03/11/18 02:32 Sodium 140.0 mmol/L (132-148) 03/11/18 02:32 Chloride 108.0 mmol/L (98-107) H 03/11/18 02:32 Glucose 116 mg/dl (65-105) H 03/11/18 02:32 Lactate 1.8 mmol/L (0.7-2.1) 03/11/18 02:32 FiO2 21.0 % 03/11/18 02:32 Sodium 140 mmol/L (132-148) 03/20/18 06:00 Potassium 3.9 mmol/L (3.6-5.0) 03/20/18 06:00 Chloride 103 mmol/L (98-107) 03/20/18 06:00 Carbon Dioxide 32 mmol/L (21-33) 03/20/18 06:00 Anion Gap 9 (10-20) L 03/20/18 06:00 BUN 24 mg/dL (7-21) H 03/20/18 06:00 Creatinine 1.0 mg/dl (0.7-1.2) 03/20/18 06:00 Est GFR ( Amer) > 60 03/20/18 06:00 Est GFR (Non-Af Amer) 59 03/20/18 06:00 Random Glucose 87 mg/dL (70-110) 03/20/18 06:00 Calcium 8.2 mg/dL (8.4-10.5) L 03/20/18 06:00 Magnesium 2.2 mg/dL (1.7-2.2) 03/11/18 02:32 Total Bilirubin 0.2 mg/dL (0.2-1.3) 03/20/18 06:00 AST 20 U/L (14-36) 03/20/18 06:00 ALT 24 U/L (7-56) 03/20/18 06:00 Alkaline Phosphatase 109 U/L (38-126) 03/20/18 06:00 NT-Pro-B Natriuret Pep 3700 pg/mL (0-450) H 03/11/18 02:32 Total Protein 7.1 g/dL (5.8-8.3) 03/20/18 06:00 Albumin 3.4 g/dL (3.0-4.8) 03/20/18 06:00 Globulin 3.7 gm/dL 03/20/18 06:00 Albumin/Globulin Ratio 0.9 (1.1-1.8) L 03/20/18 06:00 Procalcitonin 0.31 NG/ML (0.19-0.49) 03/11/18 05:42 Venous Blood Potassium 4.3 mmol/L (3.6-5.2) 03/11/18 02:32 Urine Color Yellow (YELLOW) 03/11/18 04:00 Urine Appearance Clear (CLEAR) 03/11/18 04:00 Urine pH 6.0 (4.7-8.0) 03/11/18 04:00 Ur Specific [place] 1.015 (1.005-1.035) 03/11/18 04:00 Urine Protein Trace mg/dL (<30 mg/dL) H 03/11/18 04:00 Urine Glucose (UA) Negative mg/dL (NEGATIVE) 03/11/18 04:00 Urine Ketones Trace mg/dL (NEGATIVE) H 03/11/18 04:00 Urine Blood Negative (NEGATIVE) 03/11/18 04:00 Urine Nitrate Negative (NEGATIVE) 03/11/18 04:00 Urine Bilirubin Negative (NEGATIVE) 03/11/18 04:00 Urine Urobilinogen 1.0 E.U./dL (<1 E.U./dL) H 03/11/18 04:00 Ur Leukocyte Esterase Negative Jayant/uL (NEGATIVE) 03/11/18 04:00 Urine RBC 0 - 2 /hpf (0-2) 03/11/18 04:00 Urine WBC 0 - 2 /hpf (0-6) 03/11/18 04:00 Ur Epithelial Cells 6 - 8 /hpf (0-5) 03/11/18 04:00 Urine Bacteria Few (NEG) 03/11/18 04:00 Influenza Typ A,B (EIA) Negative for flu a/b (NEGATIVE) 03/11/18 02:32 Attending/Attestation - Attestation I have personally seen and examined this patient.: Yes I have fully participated in the care of the patient.: Yes I have reviewed all pertinent clinical information, including history, physical exam and plan: Yes Notes (Text): 03/21/18 13:38 Medical record note made by the resident after discussion with my direction and input after the patient was personally seen and examined by me. I have reviewed the chart and agree that the record accurately reflects by personal performance of the history, physical exam, data review, and medical decision-making, in the course for the patient. I have also personally directed the plan of care. 52 year old female with PMH of SLE, adrenal insufficiency on chronic steroids, and cardiomyopathy s/p AICD on milrinone infusion was admitted with with URI symptoms. She was found to have fungemia with blood cultures + for ashley glabrata. She was started on micafungin and was seen in consultation with ID . Repeat blood cultures from 03/14 also came back positive x 2 for ashley glabrata. Picc line was removed.Picc line Cather tip grew ashley glabrata Repeat set of blood cultures from 03/17 however are negative at the time of discharge.. . Echocardiogram was reviewed; negative for of vegetations. Patient will need total 6 week of therapy with Micafungin as recommended by ID.She will need weekly CBC,CMP,CRP and INR while on antibiotics.Her INR is therapeutic at the time of discharge. Management plan was discussed in detail with patient. Education was provided. 03/21/18 13:44
== END 2018-03-20 16:24 | disposition home health service (06) | DRG 543 ==
LOC: ED 01:03 → ERH 03:51 → 2RSO 16:44
PROVIDERS: ADMIT Internal Medicine; ATTEND Internal Medicine
PROC: 02HV33Z Insertion of Infusion Device into Superior Vena Cava, Percutaneous Approach (ICD-10-PCS; principal; 2018-03-17)
PROC: 02PYX3Z Removal of Infusion Device from Great Vessel, External Approach (ICD-10-PCS; 2018-03-17)
DX: T80.211A Bloodstream infection due to central venous catheter, initial encounter (principal); B37.7 Candidal sepsis; I50.21 Acute systolic (congestive) heart failure; N17.9 Acute kidney failure, unspecified; I11.0 Hypertensive heart disease with heart failure; I42.0 Dilated cardiomyopathy; B49 Unspecified mycosis; M32.9 Systemic lupus erythematosus, unspecified; B37.0 Candidal stomatitis; E27.40 Unspecified adrenocortical insufficiency; I80.8 Phlebitis and thrombophlebitis of other sites; I08.1 Rheumatic disorders of both mitral and tricuspid valves; Z76.82 Awaiting organ transplant status; D64.9 Anemia, unspecified; E11.9 Type 2 diabetes mellitus without complications; E78.00 Pure hypercholesterolemia, unspecified; H35.30 Unspecified macular degeneration; H43.399 Other vitreous opacities, unspecified eye; J20.9 Acute bronchitis, unspecified; J45.909 Unspecified asthma, uncomplicated; K21.9 Gastro-esophageal reflux disease without esophagitis; L29.9 Pruritus, unspecified; M54.9 Dorsalgia, unspecified; I48.91 Unspecified atrial fibrillation; G89.29 Other chronic pain; F32.9 Major depressive disorder, single episode, unspecified; F41.9 Anxiety disorder, unspecified; Y84.8 Other medical procedures as the cause of abnormal reaction of the patient, or of later complication, without mention of misadventure at the time of the procedure; Z95.810 Presence of automatic (implantable) cardiac defibrillator; Z79.52 Long term (current) use of systemic steroids; Z86.73 Personal history of transient ischemic attack (TIA), and cerebral infarction without residual deficits; Z86.711 Personal history of pulmonary embolism; Z87.891 Personal history of nicotine dependence; Z86.718 Personal history of other venous thrombosis and embolism; Z79.01 Long term (current) use of anticoagulants

== ENCOUNTER 2018-04-03 18:47 | Emergency (ER) | payer MEDICAID, MEDICARE ==
[2018-04-03 18:47] VITALS: PULSE 98; BMI 32.2
--- NOTE | 2018-04-03 20:01 | ED PDOC ---
Arrival/HPI - History of Present Illness Narrative History of Present Illness (Text): cc: lower back pain Pt is a 52yo female, with a PMH of chronic lower back pain (herniated disc dx on mri), SLE, adrenal insufficiency on chronic steroids, CHF 2/2 non-ischemic cardiomyopathy EF 15% s/p AICD, recent generator [place] [address] Kahn, endocarditis, on heart transplant list RWJ, PFO, ASD, on Warfarin, CVA x2 w/ residual right-sided weakness, non-malignant breast calcifications B/L, PE, anxiety, depression & R breast cellulites, who presents to the ED complaining of lower back pain for the past 2 days, with pain radiating down the front and back of her legs. Pain is described as a pressure, and worse when walking. Pt denies trauma, fever, chills, chest pain, sob, abdominal pain, n/v/d, bleeding, new ecchymosis, paresthesias, bowel or bladder incontinence, urinary complaints, hematochezia, melena. Pt states that she has had this pain for the past few months, and states that "today is just a bad day." She was recently discharged from [facility] on 03/20 with a diagnosis of fungemia, given prescription for david fungin which she has been taking. She presents with a prescription for Percocet 5/325 BID #6 tabs, which she was unable to fill because it was missing a MACHO number. PMD: Dr. Maxwell Sand Tester: Dr Kahn Buttonhole Tacker: Sherri Endocrinology: Lisette Medical records reviewed: PMH: SLE, adrenal insufficiency on chronic steroids, CHF 2/2 non-ischemic cardiomyopathy EF 15% s/p AICD, recent generator [place] [address] Kahn, endocarditis, on heart transplant list RWJ, PFO, ASD, on Warfarin, CVA x2 w/ residual right-sided weakness, non-malignant breast calcifications B/L, PE, anxiety, depression & R breast cellulites PSH: Breast biopsies B/L, hematoma evacuation, C sec (1993), AICD, and BiV pacemaker SH: Tobacco- former smoker, 10 py, quit 5 yrs ago, denies alcohol, denies drugs FHx: Father- heart transplant. Mother- esophageal CA Allergies: NKDA Meds: See MAR Time/Duration: < week Symptom Onset: Sudden Symptom Course: Worsening Quality: Pressure <Zaid Flaherty - Last Filed: 04/03/18 23:30> <Navjot Jara - Last Filed: 04/04/18 05:45> - General Chief Complaint: Back Pain Time Seen by Provider: 04/03/18 19:02 Past Medical History - Provider Review Nursing Documentation Reviewed: Yes - Past History Past History: Non-Contributing - Infectious Disease Hx of Infectious Diseases: None - Tetanus Immunization Tetanus Immunization: Unknown - Past Medical History Past Medical History: Non-Contributing - Cardiac Hx Pacemaker: Yes (left side) - Pulmonary Hx Respiratory Disorders: Yes (pe about 2 yrs ago, dyspnea) Hx Asthma: Yes Hx Pneumonia: Yes Other/Comment: pt denies having the flue vaccine on 03/11/18 - Neurological Hx Neurological Disorder: Yes HX Cerebrovascular Accident: Yes (x2 r side weakness resolved) Hx Dizziness: Yes - HEENT Hx HEENT Disorder: Yes (eyeglasses, bifocals) - Renal Hx Renal Disorder: No - Endocrine/Metabolic Hx Endocrine Disorders: Yes Hx Systemic Lupus Erythematosus: Yes - Hematological/Oncological Hx Cancer: No - Integumentary Hx Dermatological Disorder: Yes (foul smelling feet) Other/Comment: white patches on tongue - Musculoskeletal/Rheumatological Hx Falls: No - Gastrointestinal Hx Gastrointestinal Disorders: Yes (obese) Hx Gastroesophageal Reflux: Yes - Genitourinary/Gynecological Hx Genitourinary Disorders: Yes Hx Sexually Transmitted Diseases: (pt denies) Other/Comment: fibroids, heavy irregular periods, last period 3 months ago, pt had mammogram about 3 yrs ago was told to not take her warfarin, she thinks she did not stop it long enough becaruse when the machine pressed down on her right breast she developed hematomas to r and l side of breast which developed to open draining wounds, which were periodically drained, cared for by dr rachel beth and eventually healed. pt's last mammogram was last year 2016 - Psychiatric Hx Psychophysiologic Disorder: Yes Hx Anxiety: Yes Hx Depression: Yes Hx Panic Disorder: Yes Hx Substance Use: No - Past Surgical History Past Surgical History: No Previous - Surgical History Hx Mastectomy: No - Anesthesia Hx Anesthesia: Yes Hx Anesthesia Reactions: No Hx Malignant Hyperthermia: No - Suicidal Assessment Feels Threatened In Home Enviroment: No <Zaid Flaherty - Last Filed: 04/03/18 23:30> Family/Social History - Physician Review Nursing Documentation Reviewed: Yes Family/Social History: Neoplasm/Cancer Smoking Status: Former Smoker Hx Alcohol Use: No Hx Substance Use: No Hx Substance Use Treatment: No <Zaid Flaherty - Last Filed: 04/03/18 23:30> Allergies/Home Meds <Zaid Flaherty - Last Filed: 04/03/18 23:30> <Navjot Jara - Last Filed: 04/04/18 05:45> Allergies/Adverse Reactions: Allergies tramadol [From Ultra] Adverse Reaction (Unknown, Verified 02/27/18 12:03) NAUSEA Home Medications: Home Meds Medication Instructions Recorded Confirmed Cholecalciferol (Vitamin D3) 1 tab PO DAILY 03/09/17 03/11/18 [Vitamin D3] Lisinopril [Zestril] 2.5 mg PO DAILY 05/06/17 03/20/18 ALPRAZolam [Xanax] 0.25 mg PO QID PRN 08/12/17 03/20/18 Albuterol HFA [Ventolin HFA 90 2 puff NEB Q4 PRN 08/12/17 03/11/18 mcg/actuation (8 g)] Amiodarone [Cordarone] 200 mg PO DAILY 08/12/17 03/20/18 Famotidine [Pepcid] 20 mg PO BID 08/12/17 03/20/18 Folic Acid 1 mg PO DAILY 08/12/17 03/11/18 Metoprolol Succinate XL [Toprol XL] 12.5 mg PO QPM 08/12/17 03/20/18 Warfarin Sodium [Jantoven] 2 mg PO DAILY 09/04/17 03/20/18 Milrinone [Primacor 1mg/ml Inj 436 mg IV CONT 02/27/18 03/11/18 (10ml)] Bumetanide [Bumex] 1 mg PO BID 03/11/18 03/11/18 Levocetirizine Dihydrochloride 5 mg PO HS 03/11/18 03/11/18 [Allergy Relief] Oxycodone HCl/Acetaminophen 1 tab PO BID PRN 03/11/18 03/20/18 [Percocet 10-325 mg Tablet] Review of Systems - Review of Systems Constitutional: Fatigue ENT: Normal Respiratory: Normal Cardiovascular: Normal Gastrointestinal: Normal Genitourinary Female: Normal Musculoskeletal: Back Pain Skin: Normal Neurological: Normal Endocrine: Normal Hemo/Lymphatic: Normal <Zaid Flaherty - Last Filed: 04/03/18 23:30> Physical Exam - Systems Exam Head: Present: Atraumatic, Normocephalic Extroacular Muscles: Present: EOMI Mouth: Present: Moist Mucous Membranes Neck: Present: Normal Range of Motion Respiratory/Chest: Present: Clear to Auscultation. No: Respiratory Distress, Rales, Rhonchi Cardiovascular: Present: Regular Rate and Rhythm, Normal S1, S2 Abdomen: Present: Distention, Normal Bowel Sounds. No: Tenderness, Rebound, Guarding Back: Present: Paraspinal Tenderness (bilateral lumbar hypertonicity with tenderness to palpation), Pain with Leg Raise (bilaterally). No: CVA Tenderness Upper Extremity: Present: Normal Inspection, NORMAL PULSES. No: Cyanosis, Edema Lower Extremity: Present: Normal Inspection, NORMAL PULSES. No: Edema, CALF TENDERNESS Neurological: Present: GCS=15, CN II-XII Intact Skin: Present: Warm, Dry. No: Rashes Psychiatric: Present: Alert, Oriented x 3 <Zaid Flaherty - Last Filed: 04/03/18 23:30> Vital Signs Pulse Resp BP Pulse Ox 04/03/18 23:30 75 18 134/76 100 04/03/18 22:00 78 18 146/70 99 04/03/18 20:48 82 18 137/82 99 04/03/18 18:48 72 18 148/70 99 <Navjot Jara - Last Filed: 04/04/18 05:45> Medical Decision Making ED Course and Treatment: 52 year old female with extensive PMH presents with 2 day history of lower back pain, has history of intermittent lower back pain and herniated disc. Will give valium 5mg PO, Toradol 60 mg IM and re-evaluate. 04/03/18 23:24 On re-evaluation, pt states that the pain is improved. She is ambulating without difficulty. Re-evaluation Time: 23:24 Reassessment Condition: Re-examined, Improved - Lab Interpretations I have reviewed the lab results: Yes <Zaid Flaherty - Last Filed: 04/03/18 23:30> - Lab Interpretations Lab Results: Lab Results 04/03/18 20:42: Urine Color Colorless, Urine Appearance Clear, Urine pH 6.0, Ur Specific Bradford 1.015, Urine Protein Negative, Urine Glucose (UA) Negative, Urine Ketones Negative, Urine Blood Negative, Urine Nitrate Negative, Urine Bilirubin Negative, Urine Urobilinogen 0.2, Ur Leukocyte Esterase Negative - Medication Orders Current Medication Orders: Discontinued Medications Diazepam (Valium) 5 mg PO ONCE ONE; Protocol Stop: 04/03/18 19:57 Last Admin: 04/03/18 20:53 Dose: 5 mg Ketorolac Tromethamine (Toradol) 30 mg IM ONCE ONE Stop: 04/03/18 00:01 Last Admin: 04/03/18 20:53 Dose: [address] [facility] Pain Assessment Document 04/03/18 20:53 HI (Rec: 04/03/18 20:53 [place] [id number]) Pain Reassessment Is this a pain reassessment? No IM Administration Charges Document 04/03/18 20:53 HI (Rec: 04/03/18 20:53 [place] [id number]) Charges for Administration # of IM Administrations 1 Re-Assess: MAR Pain Assessment Document 04/03/18 21:53 HI (Rec: 04/03/18 22:51 [place] [id number]) Pain Reassessment Is this a pain reassessment? Yes Sleep Is patient sleeping during reassessment? Yes Oxycodone/Acetaminophen (Percocet 5/325 Mg Tab) 1 tab PO STAT STA Stop: 04/03/18 22:37 Last Admin: 04/03/18 22:50 Dose: [address] [facility] Pain Assessment Document 04/03/18 22:50 HI (Rec: 04/03/18 22:50 [place] [id number]) Pain Reassessment Is this a pain reassessment? No Sleep Is patient sleeping during reassessment? No Presence of Pain Presence of Pain Yes <Navjot Jara - Last Filed: 04/04/18 05:45> - Scribe Statement The provider has reviewed the documentation as recorded by the Scribe Patient Seen with Resident: In agreement with resident note which contains more details about the patient. Patient seen and evaluated with resident. Came up with plan and treatment together. <Navjot Jara - Last Filed: 04/04/18 05:45> Disposition/Present on Arrival - Present on Arrival Any Indicators Present on Arrival: No History of DVT/PE: No History of Uncontrolled Diabetes: No Urinary Catheter: No History of Decub. Ulcer: No History Surgical Site Infection Following: None - Disposition Have Diagnosis and Disposition been Completed?: Yes Disposition Time: 23:25 <Zaid Flaherty - Last Filed: 04/03/18 23:30> <Navjot Jara - Last Filed: 04/04/18 05:45> - Disposition Diagnosis: Lower back pain Disposition: HOME/ ROUTINE Condition: GOOD Discharge Instructions (ExitCare): Low Back Pain in Adults Referrals: Ilia Maxwell MD [Primary Care Provider] - Follow up with primary Forms: [facility] (Lao)
[2018-04-03 21:02] LABS: URINE APPEARANCE CLEAR (CLEAR); URINE BILIRUBIN NEGATIVE (NEGATIVE); URINE BLOOD NEGATIVE (NEGATIVE); URINE COLOR COLORLESS (YELLOW); URINE GLUCOSE (UA) NEGATIVE (NEGATIVE); URINE LEUKOCYTE ESTERASE NEGATIVE Leu/uL (NEGATIVE); URINE PROTEIN NEGATIVE mg/dL (<30 mg/dL); URINE UROBILINOGEN 0.2 E.U./dL (<1 E.U./dL)
[2018-04-03] MEDS ORDERED: Oxycodone/Acetaminophen 5/325 mg Tab PO STA (22:36)
[2018-04-03 23:13] VITALS: RESP 18
[2018-04-04 01:06] VITALS: BP 134/76; PULSE 75; O2SAT 100
== END 2018-04-03 23:30 | disposition home or self-care (01) ==
LOC: ED 18:47
DX: M54.5 Low back pain (principal)
CPT/HCPCS: 81003; 96372; 99284; J1885

== ENCOUNTER 2018-04-13 15:55 | Emergency (ER) | payer MEDICARE, MEDICAID ==
[2018-04-13 15:56] VITALS: PULSE 98; BMI 32.2
[2018-04-13 16:06] VITALS: O2SAT 98
[2018-04-13] MEDS ORDERED: Oxycodone/Acetaminophen 10/325 mg Tab PO STA (16:21)
--- NOTE | 2018-04-13 16:31 | ED PDOC ---
Arrival/HPI - General Chief Complaint: Back Pain Historian: Patient - History of Present Illness Narrative History of Present Illness (Text): 04/13/18 16:28 52 y/o female, pmh including chronic lower back pain with multiple lumbar disc disease/chf/cva/hld/pe, allergic to tramadol but not to the percocets, chronically on the percocets 10-325. Pt. stated that she has pain on the lower back, same as before with no new injury or fall, same characteristic and severity, no numbness or tingling, no rash or night sweat ,no other medical or psychological complaints. Past Medical History - Provider Review Nursing Documentation Reviewed: Yes - Past History Past History: Non-Contributing - Infectious Disease Hx of Infectious Diseases: None - Tetanus Immunization Tetanus Immunization: Unknown - Past Medical History Past Medical History: Non-Contributing - Cardiac Hx Cardiac Disorders: Yes Hx Pacemaker: Yes - Pulmonary Hx Respiratory Disorders: Yes Hx Asthma: Yes Hx Pneumonia: Yes Hx Pulmonary Embolism: Yes - Neurological Hx Neurological Disorder: Yes HX Cerebrovascular Accident: Yes Hx Dizziness: Yes - HEENT Hx HEENT Disorder: Yes - Renal Hx Renal Disorder: No - Endocrine/Metabolic Hx Endocrine Disorders: Yes Hx Systemic Lupus Erythematosus: Yes - Hematological/Oncological Hx Cancer: No - Integumentary Hx Dermatological Disorder: Yes - Musculoskeletal/Rheumatological Hx Musculoskeletal Disorders: Yes Hx Back Pain: Yes - Gastrointestinal Hx Gastrointestinal Disorders: Yes Hx Gastroesophageal Reflux: Yes - Genitourinary/Gynecological Hx Genitourinary Disorders: Yes Hx Reproductive Disorders: Yes - Psychiatric Hx Psychophysiologic Disorder: Yes Hx Anxiety: Yes Hx Depression: Yes Hx Panic Disorder: Yes Hx Substance Use: No - Past Surgical History Past Surgical History: No Previous - Surgical History Other/Comment: PACEMAKER - Anesthesia Hx Anesthesia: Yes Hx Anesthesia Reactions: No Hx Malignant Hyperthermia: No - Suicidal Assessment Feels Threatened In Home Enviroment: No Family/Social History - Physician Review Nursing Documentation Reviewed: Yes Family/Social History: Unknown Family HX Smoking Status: Former Smoker Hx Alcohol Use: No Hx Substance Use: No Hx Substance Use Treatment: No Allergies/Home Meds Allergies/Adverse Reactions: Allergies tramadol [From Ultram] Adverse Reaction (Unknown, Verified 04/13/18 15:58) NAUSEA Home Medications: Home Meds Medication Instructions Recorded Confirmed Cholecalciferol (Vitamin D3) 1 tab PO DAILY 03/09/17 04/13/18 [Vitamin D3] Lisinopril [Zestril] 2.5 mg PO DAILY 05/06/17 04/13/18 ALPRAZolam [Xanax] 0.25 mg PO QID PRN 08/12/17 04/13/18 Albuterol HFA [Ventolin HFA 90 2 puff NEB Q4 PRN 08/12/17 04/13/18 mcg/actuation (8 g)] Amiodarone [Cordarone] 200 mg PO DAILY 08/12/17 04/13/18 Famotidine [Pepcid] 20 mg PO BID 08/12/17 04/13/18 Folic Acid 1 mg PO DAILY 08/12/17 04/13/18 Metoprolol Succinate XL [Toprol XL] 12.5 mg PO QPM 08/12/17 04/13/18 Warfarin Sodium [Jantoven] 2 mg PO DAILY 09/04/17 04/13/18 Milrinone [Primacor 1mg/ml Inj 436 mg IV CONT 02/27/18 04/13/18 (10ml)] Bumetanide [Bumex] 1 mg PO BID 03/11/18 04/13/18 Levocetirizine Dihydrochloride 5 mg PO HS 03/11/18 04/13/18 [Allergy Relief] Oxycodone HCl/Acetaminophen 1 tab PO BID PRN 03/11/18 04/13/18 [Percocet 10-325 mg Tablet] Review of Systems - Review of Systems Constitutional: absent: Fatigue, Fevers Eyes: absent: Vision Changes ENT: absent: Hearing Changes Respiratory: absent: SOB, Cough Cardiovascular: absent: Chest Pain Gastrointestinal: absent: Abdominal Pain, Diarrhea, Nausea, Vomiting Musculoskeletal: Back Pain. absent: Arthralgias, Neck Pain Skin: absent: Rash, Pruritis Neurological: absent: Headache, Dizziness Hemo/Lymphatic: absent: Adenopathy, Easy Bleeding Psychiatric: absent: Anxiety, Depression, Suicidal Ideation Physical Exam Vital Signs Reviewed: Yes Vital Signs Temp Pulse Resp BP Pulse Ox 04/13/18 16:01 98.1 F 73 17 107/75 98 Temperature: Afebrile Blood Pressure: Normal Pulse: Regular Respiratory Rate: Normal Appearance: Positive for: Well-Appearing, Non-Toxic Pain Distress: Moderate Mental Status: Positive for: Alert and Oriented X 3 - Systems Exam Head: Present: Atraumatic, Normocephalic Pupils: Present: PERRL Extroacular Muscles: Present: EOMI Conjunctiva: Present: Normal Mouth: Present: Moist Mucous Membranes Neck: Present: Normal Range of Motion Respiratory/Chest: Present: Clear to Auscultation, Good Air Exchange. No: Respiratory Distress, Accessory Muscle Use Cardiovascular: Present: Regular Rate and Rhythm, Normal S1, S2. No: Murmurs Abdomen: No: Tenderness, Distention, Peritoneal Signs Back: Present: Normal Inspection. No: CVA Tenderness, Midline Tenderness, Paraspinal Tenderness, Pain with Leg Raise, Decubitus Ulcer Upper Extremity: Present: Normal Inspection, Normal ROM, NORMAL PULSES, Neurovascularly Intact, Capillary Refill < 2s. No: Cyanosis, Edema, Deformity Lower Extremity: Present: Normal Inspection. No: Edema Neurological: Present: GCS=15, CN II-XII Intact, Speech Normal, Motor Func Grossly Intact, Gait Normal, Memory Normal Skin: Present: Warm, Dry, Normal Color. No: Rashes Psychiatric: Present: Alert, Oriented x 3, Normal Insight, Normal Concentration Medical Decision Making ED Course and Treatment: 04/13/18 16:36 -I checked the [facility] report, there is prescription refill consistently but no signs of drug abuse, -Percocet 10/325mg po ordered for her. 04/13/18 17:05 -Urine hcg is negative. -Pt. has percocet 10/[address] Freeman from 03/01/2018 for 10 tablets po bid which she stated that she can't get it fill because it's exceeded 30 days, -Pt. has pain management follow up on upcoming tuesday. -Pt. request to be discharged home, feeling much better. -Discharge home with percocet, bed rest, follow up with your own pmd and pain management within 2days, return to the ER for any new or worsening signs or symptoms. - Medication Orders Current Medication Orders: Discontinued Medications Oxycodone/Acetaminophen (Percocet 10/325 Mg Tab) 1 tab PO STAT STA Stop: 04/13/18 16:22 - PA / [employer] / Resident Statement MD/DO has reviewed & agrees with the documentation as recorded. Disposition/Present on Arrival - Present on Arrival Any Indicators Present on Arrival: No History of DVT/PE: No History of Uncontrolled Diabetes: No Urinary Catheter: No History of Decub. Ulcer: No History Surgical Site Infection Following: None - Disposition Have Diagnosis and Disposition been Completed?: Yes Diagnosis: Chronic back pain, Pain management Disposition: HOME/ ROUTINE Disposition Time: 16:37 Patient Plan: Discharge Patient Problems: Current Active Problems Problem Status Onset Chronic back pain Acute Condition: IMPROVED Additional Instructions: Discharge home with percocet, bed rest, follow up with your own pmd and pain management within 2days, return to the ER for any new or worsening signs or symptoms. Prescriptions: Acetaminophen/Oxycodone Hydr [Percocet 10/325 mg Tab] 1 tab PO BID PRN #6 tab PRN Reason: Other Referrals: Ilia Maxwell MD [Primary Care Provider] - Follow up with primary Forms: [facility] (Kiswahili), WORK NOTE
[2018-04-13 17:31] LABS: BENZODIAZEPINES, UR NEGATIVE (NEGATIVE); OPIATES, UR NEGATIVE (NEGATIVE)
[2018-04-13 17:37] VITALS: BP 110/68; PULSE 72; RESP 18; TEMP 98
[2018-04-13 17:45] LABS: PHENCYCLIDINE, UR NEGATIVE (NEGATIVE)
[2018-04-13 18:22] LABS: BARBITURATES, UR NEGATIVE (NEGATIVE)
== END 2018-04-13 17:37 | disposition home or self-care (01) ==
LOC: ED 15:55
DX: M54.5 Low back pain (principal); G89.29 Other chronic pain
CPT/HCPCS: 99283; G0480

== ENCOUNTER 2018-06-03 23:56 | Observation (INO) | payer MEDICARE, MEDICAID ==
[2018-06-03 23:57] VITALS: PULSE 98
--- NOTE | 2018-06-04 00:27 | ED PDOC ---
Arrival/HPI - General Time Seen by Provider: 06/04/18 00:10 Historian: Patient - History of Present Illness Narrative History of Present Illness (Text): 06/04/18 00:24 52 year old female, whose past medical history includes chronic lower back pain (herniated disc dx on mri on Percocet), SLE, adrenal insufficiency on chronic steroids, CHF 2/2 non-ischemic cardiomyopathy EF 15% s/p AICD, recent generator change [place] [address] Kahn, endocarditis, on heart transplant list [facility], PFO, ASD, on Warfarin, CVA x2 w/ residual right-sided weakness, non-malignant breast calcifications B/L, PE, anxiety, depression, and pacemaker, presents to the emergency department complaining of headache and chronic lower back pain s/p fall after feeling lightheaded approximately 2-3 hours ago. Patient reports she felt lightheaded and fell backwards hitting her head, but denies any loss of consciousness and is able to recall the event. She reports she took Tylenol with no relief. She states she was discharged [facility] today for complaints of dizziness. Patient denies any fever, chills, chest pain, shortness of breath, nausea, vomiting, diarrhea, urinary symptoms, neck pain, or any other complaints. PMD: Dr. Maxwell Premix Operator Concentrate: Dr Kahn Visual Lead: Dr. Polanco Endocrinology: Dr. Knox Time/Duration: 1-3 hours Symptom Onset: Sudden Symptom Course: Unchanged Activities at Onset: Light Context: Other (fall) Past Medical History - Provider Review Nursing Documentation Reviewed: Yes - Past History Past History: Non-Contributing - Infectious Disease Hx of Infectious Diseases: None - Tetanus Immunization Tetanus Immunization: Unknown - Past Medical History Past Medical History: Non-Contributing - Cardiac Hx Cardiac Disorders: Yes Hx Pacemaker: Yes Other/Comment: as per pt: cardiomyopathy - Pulmonary Hx Respiratory Disorders: Yes Hx Asthma: Yes Hx Pneumonia: Yes Hx Pulmonary Embolism: Yes - Neurological Hx Neurological Disorder: Yes HX Cerebrovascular Accident: Yes Hx Dizziness: Yes - HEENT Hx HEENT Disorder: Yes - Renal Hx Renal Disorder: No - Endocrine/Metabolic Hx Endocrine Disorders: Yes Hx Systemic Lupus Erythematosus: Yes - Hematological/Oncological Hx Cancer: No - Integumentary Hx Dermatological Disorder: Yes - Musculoskeletal/Rheumatological Hx Musculoskeletal Disorders: Yes Hx Back Pain: Yes - Gastrointestinal Hx Gastrointestinal Disorders: Yes Hx Gastroesophageal Reflux: Yes - Genitourinary/Gynecological Hx Genitourinary Disorders: Yes Hx Reproductive Disorders: Yes - Psychiatric Hx Psychophysiologic Disorder: Yes Hx Anxiety: Yes Hx Depression: Yes Hx Panic Disorder: Yes Hx Substance Use: No - Past Surgical History Past Surgical History: No Previous - Surgical History Other/Comment: PACEMAKER - Anesthesia Hx Anesthesia: Yes Hx Anesthesia Reactions: No Hx Malignant Hyperthermia: No - Suicidal Assessment Feels Threatened In Home Enviroment: No Family/Social History - Physician Review Nursing Documentation Reviewed: Yes Family/Social History: No Known Family HX Smoking Status: Former Smoker Hx Alcohol Use: No Hx Substance Use: No Hx Substance Use Treatment: No Allergies/Home Meds Allergies/Adverse Reactions: Allergies tramadol [From Ultra] Adverse Reaction (Unknown, Verified 04/13/18 15:58) NAUSEA Home Medications: Home Meds Medication Instructions Recorded Confirmed RX: Cholecalciferol (Vitamin D3) 1 tab PO DAILY 03/09/17 04/13/18 [Vitamin D3] RX: Lisinopril [Zestril] 2.5 mg PO DAILY 05/06/17 04/13/18 RX: ALPRAZolam [Xanax] 0.25 mg PO QID PRN 08/12/17 04/13/18 RX: Albuterol HFA [Ventolin HFA 90 2 puff NEB Q4 PRN 08/12/17 04/13/18 mcg/actuation (8 g)] RX: Amiodarone [Cordarone] 200 mg PO DAILY 08/12/17 04/13/18 RX: Famotidine [Pepcid] 20 mg PO BID 08/12/17 04/13/18 RX: Folic Acid 1 mg PO DAILY 08/12/17 04/13/18 RX: Metoprolol Succinate XL 12.5 mg PO QPM 08/12/17 04/13/18 [Toprol XL] RX: Warfarin Sodium [Jantoven] 2 mg PO DAILY 09/04/17 04/13/18 RX: Milrinone [Primacor 1mg/ml Inj 436 mg IV CONT 02/27/18 04/13/18 (10ml)] RX: Bumetanide [Bumex] 1 mg PO BID 03/11/18 04/13/18 RX: Levocetirizine Dihydrochloride 5 mg PO HS 03/11/18 04/13/18 [Allergy Relief] RX: Oxycodone HCl/Acetaminophen 1 tab PO BID PRN 03/11/18 04/13/18 [Percocet 10-325 mg Tablet] Review of Systems - Physician Review All systems were reviewed & negative as marked: Yes - Review of Systems Constitutional: absent: Fatigue, Weight Change, Fevers, Other (Chills) Eyes: absent: Vision Changes, Photophobia, Eye Pain ENT: absent: Hearing Changes, Tinnitus, Voice Changes, Sore Throat Respiratory: absent: SOB, Cough, Sputum Cardiovascular: absent: Chest Pain, Palpitations, Edema Gastrointestinal: absent: Abdominal Pain, Stool Changes, Constipation, Diarrhea, Nausea, Vomiting, Appetite Changes, Hematochezia, Hematemesis, Anorexia Genitourinary Female: absent: Dysuria, Frequency, Hematuria Musculoskeletal: Back Pain (but no enuresis or encoparesis. good sensation in legs ). absent: Arthralgias, Neck Pain, Joint Swelling Skin: absent: Rash, Pruritis Neurological: Headache, Dizziness. absent: Focal Weakness, Gait Changes, Speech Changes, Facial Droop, Seizure, Other (lightheadedness, but denies LOC) Physical Exam Vital Signs Reviewed: Yes Vital Signs Temp Pulse Resp BP Pulse Ox 06/04/18 00:12 98.4 F 56 L 18 131/72 99 Temperature: Afebrile Blood Pressure: Normal Pulse: Bradycardic Respiratory Rate: Normal Appearance: Positive for: Well-Appearing, Non-Toxic, Comfortable Pain Distress: None Mental Status: Positive for: Alert and Oriented X 3 - Systems Exam Head: Present: Atraumatic, Normocephalic, Tenderness (Posterior scalp tenderness). No: Laceration, Other (No hematoma) Pupils: Present: PERRL. No: Sluggish Extroacular Muscles: Present: EOMI Conjunctiva: Present: Normal Ears: Present: Normal, NORMAL TM, Normal Canal. No: Erythema, TM Bulging Mouth: Present: Moist Mucous Membranes Pharnyx: Present: Normal. No: ERYTHEMA Nose (External): Present: Atraumatic. No: Abrasion Nose (Internal): Present: Normal Inspection. No: Septal Hematoma Neck: Present: Normal Range of Motion, Trachea Midline. No: Meningeal Signs, MIDLINE TENDERNESS, Paraspinal Tenderness, JVD Respiratory/Chest: Present: Clear to Auscultation, Good Air Exchange. No: Respiratory Distress, Accessory Muscle Use Cardiovascular: Present: Regular Rate and Rhythm, Normal S1, S2. No: Murmurs Abdomen: No: Tenderness, Distention, Peritoneal Signs Back: Present: Normal Inspection, Paraspinal Tenderness (bilateral paraspinal tenderness in lumbar area). No: CVA Tenderness, Midline Tenderness, Pain with Leg Raise, Decubitus Ulcer Upper Extremity: Present: Other (right PICC line. No erythema or redness). No: Cyanosis, Edema Lower Extremity: Present: Normal Inspection. No: Edema Neurological: Present: GCS=15, CN II-XII Intact, Speech Normal Skin: Present: Warm, Dry, Normal Color. No: Rashes Psychiatric: Present: Alert, Oriented x 3, Normal Insight, Normal Concentration Medical Decision Making ED Course and Treatment: 06/04/18 00:24 Impression: 52 year old female presents complaining of headache and chronic lower back pain s/p falling after feeling lightheaded and hitting her head approximately 2-3 hours ago. No LOC. No laceration noted. No abdominal pain on exam. Pelvis stabl e. No extremity pain, N/V intact in all extremities. Given on coumadin- will order CTs. Will likely require obs vs admission given recent d/c from [facility] and recurrent lightheadedness w/ fall on coumadin. Plan: -- CT Abd & Pelvis IV Contrast -- Cervical Spine CT w/o contrast -- Head CT w/o contrast -- EKG -- Labs -- Chest X-ray -- Reassess and disposition Prior Visits: Notes and results from previous visits were reviewed. Progress Notes: 06/04/18 01:01 EKG shows sinus bradycardia at 57 BPM. No STEMI. Interpreted by me. 06/04/18 03:02 CXR Impression: As read by me, No active disease. CT scan of the head. Electronically signed on Jun 04, 2018 2:43:59 AM EST by: Derrick Germain M.D IMPRESSION: 1. Age-appropriate cerebellar and cerebral atrophy. 2. Mild chronic microvascular disease. 3. No evidence of acute intracranial pathology. CT scan of the cervical spine without contrast. Electronically signed on Jun 04, 2018 2:45:33 AM EST by: Derrick Germain M.D. IMPRESSION: Normal unenhanced CT examination of the cervical spine. CT SCAN OF THE ABDOMEN AND PELVIS WITHOUT ORAL OR IV CONTRAST. Electronically signed on Jun 04, 2018 3:18:27 AM EST by: Derrick Germain M.D. IMPRESSION: No acute traumatic pathology. 06/04/18 03:11 trop negative BNP 5k - lasix ordered. Lungs CTA b/l appreciate consult w/ Dr. 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 I have reviewed the chart and agree that the record accurately reflects my personal performance of the history, physical exam, medical decision making, and the department course for this patient. I have also personally directed, reviewed, and agree with the discharge instructions and disposition. Disposition/Present on Arrival - Present on Arrival Any Indicators Present on Arrival: No History of DVT/PE: No History of Uncontrolled Diabetes: No Urinary Catheter: No History of Decub. Ulcer: No History Surgical Site Infection Following: None - Disposition Have Diagnosis and Disposition been Completed?: Yes Diagnosis: Fall, Dizziness Disposition: HOSPITALIZED Disposition Time: 03:11 Condition: GOOD
[2018-06-04 00:52] LABS: BASO # 0.01 K/mm3 (0.0-2.0); BASO % 0.1 % (0.0-3.0); EOS % 0.4 % (1.5-5.0); GRAN # 6.42 (1.4-6.5); GRAN % 74.9 % (50.0-68.0); HEMOGLOBIN 10.5 g/dL (12.0-16.0); LYMPH # 1.4 (1.2-3.4); LYMPH % 16.3 % (22.0-35.0); MEAN CELL VOLUME 82.7 fl (80.0-105.0); MEAN CORPUSCULAR HEMOGLOBIN 23.9 pg (25.0-35.0); MEAN CORPUSCULAR HGB CONC 28.9 g/dl (31.0-37.0); MEAN PLATELET VOLUME 10.1 fl (7.0-11.0); MONO # 0.7 (0.1-0.6); MONO % 8.3 % (1.0-6.0); RBC 4.39 10^6/uL (3.5-6.1); RED CELL DISTRIBUTION WIDTH 16.9 % (11.5-14.5); WHITE BLOOD COUNT 8.6 10^3/uL (4.5-11.0)
[2018-06-04 01:06] LABS: ALBUMIN 3.9 g/dL (3.0-4.8); ALT/SGPT 17 U/L (7-56); AST/SGOT 23 U/L (14-36); BLOOD UREA NITROGEN 18 mg/dL (7-21); CALCIUM 8.4 mg/dL (8.4-10.5); GFR NON-AFRICAN AMERICAN 59
[2018-06-04 01:07] LABS: PROTHROMBIN TIME 43.6 SECONDS (9.4-12.5)
[2018-06-04 01:10] LABS: INR 3.72
[2018-06-04 01:17] LABS: B-TYPE NATRIURETIC PEPTIDE 4720 pg/mL (0-450); TROPONIN I 0.02 ng/mL
[2018-06-04] MEDS ORDERED: Iohexol 350 MG/100 ML VIAL ONE (01:23)
[2018-06-04] MEDS ORDERED: Oxycodone/Acetaminophen 5/325 mg Tab PO STA ×2 (02:54→04:56)
[2018-06-04 04:10] VITALS: BMI 33.6
[2018-06-04] MEDS: Milrinone 20mg/100ml D5W 100 ML IV PRN (04:41)
[2018-06-04] MEDS: Oxycodone/Acetaminophen 10/325 mg Tab PO PRN ×2 (10:42→23:56)
[2018-06-04] MEDS: Fluticasone Nasal 50 mcg/Spray NS SCH (10:43)
--- NOTE | 2018-06-04 10:50 | CT ---
Date of service: 06/04/2018 PROCEDURE: CT HEAD WITHOUT CONTRAST. HISTORY: fall on coumadin COMPARISON: CT head dated 04/26/2017. TECHNIQUE: Axial computed tomography images were obtained through the head/brain without intravenous contrast. Radiation dose: Total exam DLP = 866.39 mGy-cm. This CT exam was performed using one or more of the following dose reduction techniques: Automated exposure control, adjustment of the mA and/or kV according to patient size, and/or use of iterative reconstruction technique. FINDINGS: HEMORRHAGE: No intracranial hemorrhage. BRAIN: No mass effect or edema. Atrophy. Chronic microvascular ischemic changes. Stable prominence of both sylvian fissures. Old left temporal lobe infarct. Old medial right occipital lobe infarct. Old medial left cerebellar infarct. Bilateral basal ganglia and right thalamic lacunar infarctions redemonstrated. VENTRICLES: Prominent. No hydrocephalus. CALVARIUM: Unremarkable. PARANASAL SINUSES: Unremarkable as visualized. No significant inflammatory changes. MASTOID AIR CELLS: Unremarkable as visualized. No inflammatory changes. OTHER FINDINGS: None. IMPRESSION: No acute intracranial pathology. Old bilateral infarctions. Age-related changes. No significant interval change.
[2018-06-04] MEDS ORDERED: Potassium Chloride 20 mEq ER Tab PO ONE (10:53)
--- NOTE | 2018-06-04 10:53 | CT ---
Date of service: 06/04/2018 PROCEDURE: CT Cervical Spine without contrast HISTORY: fall on coumadin COMPARISON: None available. TECHNIQUE: Axial computed tomography images were obtained of the cervical spine without the use of intravenous contrast. Coronal and sagittal reformatted images were created and reviewed. Radiation dose: Total exam DLP = 668.83 mGy-cm. This CT exam was performed using one or more of the following dose reduction techniques: Automated exposure control, adjustment of the mA and/or kV according to patient size, and/or use of iterative reconstruction technique. FINDINGS: VERTEBRAE: No fracture. Straightening of the normal lordosis. No destructive bony lesion. DISCS/SPINAL CANAL/NEURAL FORAMINA: No significant central canal or neural foraminal stenosis. Discs heights are grossly preserved. PARASPINAL SOFT TISSUES: Unremarkable. OTHER FINDINGS: None. IMPRESSION: Straightening of the normal lordosis which may be related to positioning/spasm. No acute fracture.
--- NOTE | 2018-06-04 10:56 | CT ---
Date of service: 06/04/2018 PROCEDURE: CT Abdomen and Pelvis with contrast HISTORY: fall on coumadin COMPARISON: CT scan of the abdomen pelvis dated 02/28/2018 TECHNIQUE: Contrast dose: 100 mL Omnipaque 350 Radiation dose: Total exam DLP = 763.49 mGy-cm. This CT exam was performed using one or more of the following dose reduction techniques: Automated exposure control, adjustment of the mA and/or kV according to patient size, and/or use of iterative reconstruction technique. FINDINGS: LOWER THORAX: Cardiomegaly. Partially imaged implanted cardiac device leads. No focal consolidation or pleural effusion. 5 mm left lower lobe nodule. LIVER: Unremarkable. No gross lesion or ductal dilatation. GALLBLADDER AND BILE DUCTS: Unremarkable. PANCREAS: Unremarkable. No gross lesion or ductal dilatation. SPLEEN: Multiple punctate splenic calcifications, likely granuloma secondary to prior granulomatous infection. ADRENALS: Unremarkable. No mass. KIDNEYS AND URETERS: Unremarkable. No hydronephrosis. No solid mass. VASCULATURE: Unremarkable. No aortic aneurysm. No aortic atherosclerotic calcification or mural plaque present. BOWEL: Unremarkable. No obstruction. No gross mural thickening. APPENDIX: Normal appendix. PERITONEUM: Unremarkable. No free fluid. No free air. LYMPH NODES: Unremarkable. No enlarged lymph nodes. BLADDER: Unremarkable. REPRODUCTIVE: Calcified uterine fibroids.. BONES: No acute fracture. OTHER FINDINGS: None. IMPRESSION: No acute abdominal pelvic pathology. Stable findings as above.
--- NOTE | 2018-06-04 11:21 | RAD ---
Date of service: 06/04/2018 HISTORY: fall COMPARISON: Chest radiograph dated 03/17/2018. TECHNIQUE: Chest PA and lateral FINDINGS: LUNGS: No active pulmonary disease. PLEURA: No significant pleural effusion identified. No pneumothorax apparent. CARDIOVASCULAR: Implanted cardiac device. Aortic atherosclerotic calcifications. Cardiomediastinal silhouette stably enlarged. OSSEOUS STRUCTURES: Unchanged. VISUALIZED UPPER ABDOMEN: Normal. OTHER FINDINGS: Right upper extremity PICC at the cavoatrial junction. Nonspecific high-density area in the left axilla. IMPRESSION: No active disease. Non specific high density in the left axilla.
--- NOTE | 2018-06-04 15:39 | CON ---
DATE: 06/04/2018 NEUROLOGY CONSULTATION CHIEF COMPLAINT: Status post fall. 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 She deconditioned. She has evidence of peripheral neuropathy. On examination, found to have underlying lupus and is deconditioned from cardiac status which in differential poor balance. Currently, she is moving all extremities, mild residual right-sided weakness from prior CVA, otherwise no acute complaints at this time, headache is much better. FAMILY HISTORY: Noncontributory. MEDICATIONS: Reviewed by nurses' reconciliation sheet. PAST MEDICAL HISTORY: As above. ALLERGIES: TRAMADOL. SOCIAL HISTORY: No illicit drug use, smoking or ETOH use at this time. LABORATORY DATA: Sodium is 144, potassium 3.4, chloride 105, carbon dioxide 32, BUN of 18, creatinine 1, random glucose is 87. PHYSICAL EXAMINATION: GENERAL: The patient is seen up in bed and in no acute distress. VITAL SIGNS: Temperature of 97.4, pulse rate is 65, blood pressure of 120/83, respiratory rate 20. HEENT: Atraumatic and normocephalic. PERRLA. Extraocular muscles intact. NECK: Supple. No JVD. No adenopathy noted. LUNGS: Clear to auscultation. No adventitious sounds. HEART: S1 and S2. Regular rate and rhythm. No murmurs, rubs or gallops. ABDOMEN: Soft, nontender, and nondistended. Bowel sounds present. EXTREMITIES: No clubbing and no cyanosis. Peripheral pulses are 2+ felt bilaterally. NEUROLOGIC: The patient is alert, oriented to person, place, month and year. Speech is fluent without any errors. Cranial nerves II through XII intact. Motor Exam: There is mild residual right side weakness on the right side from prior CVA, left side intact. Toes are downgoing bilaterally. Sensory Exam: Diffuse light touch, pinprick up to the calves bilaterally. Decreased vibration of the toes. DTRs are 2+ throughout and 1 at both knees and ankles. Coordination: [id number] intact. No dysmetria noted. Gait is deferred for now. IMPRESSION: Status post fall, could be secondary to underlying deconditioned state, superimposed underlying peripheral neuropathy with cerebellar signs showing mild orthostasis given her cardiac function. At this time, we recommend outpatient physical therapy for coordination and gait and balance exercise in addition to lumbosacral therapy exercises for her chronic lumbosacral radiculopathy. At this time, mild hydration and continue with current and present medical management. Miki Li MD
--- NOTE | 2018-06-04 15:39 | CT ---
Date of service: 06/04/2018 PROCEDURE: CT HEAD WITHOUT CONTRAST. HISTORY: fall on coumadin COMPARISON: CT head performed approximately 13.5 hours prior TECHNIQUE: Axial computed tomography images were obtained through the head/brain without intravenous contrast. Radiation dose: Total exam DLP = 880.31 mGy-cm. This CT exam was performed using one or more of the following dose reduction techniques: Automated exposure control, adjustment of the mA and/or kV according to patient size, and/or use of iterative reconstruction technique. FINDINGS: HEMORRHAGE: No intracranial hemorrhage. BRAIN: No mass effect or edema. Atrophy. Chronic microvascular ischemic changes. Stable prominence of both sylvian fissures. Old left temporal lobe infarct. Old medial right occipital lobe infarct. Old medial left cerebellar infarct. Bilateral basal ganglia and right thalamic lacunar infarctions redemonstrated. VENTRICLES: Prominent. No hydrocephalus. CALVARIUM: Unremarkable. PARANASAL SINUSES: Unremarkable as visualized. No significant inflammatory changes. MASTOID AIR CELLS: Unremarkable as visualized. No inflammatory changes. OTHER FINDINGS: None. IMPRESSION: No acute intracranial pathology. Old bilateral infarctions. Age-related changes. No significant interval change.
[2018-06-04] MEDS ORDERED: Metoprolol Succinate 25 mg XL Tab PO SCH (18:00)
--- NOTE | 2018-06-04 18:15 | CON ---
DATE: 06/04/2018 REASON FOR CONSULTATION: Cardiac evaluation, history of coronary artery disease, history of nonischemic cardiomyopathy, severely decreased LV function, ejection fraction 15%, status post AICD, who was feeling dizzy. Discharged yesterday from [facility]. HISTORY OF PRESENT ILLNESS: This is a 52-year-old female, with a past medical history of nonischemic cardiomyopathy, SLE; history of severely decreased LV function, ejection fraction 15%, status post AICD, recent generator change by Dr. Kahn; history of endocarditis; history of heart transplant list at [facility], being followed there, history of ASD; history of PFO, on Coumadin; history of CVA, who was recently discharged from [facility] two days ago when admitted with the leg swelling. Yesterday went home and felt little bit dizzy and then came to the emergency room. Denies any chest pain, denies shortness of breath, and denies any palpitation. PAST MEDICAL HISTORY: Significant for SLE; adrenal insufficiency, on a steroid; history of congestive heart failure, nonischemic cardiomyopathy; history of severely decreased LV function, ejection fraction 15% to 20%, status post AICD; recently generally changed because of endocarditis, on heart transplant list at the [facility]; history of bilateral PE and anxiety disorder. Multiple admissions in the [facility]. Recently discharged from [facility]. Being followed by Dr. Kahn. PREVIOUS CARDIAC WORKUP: As follows; the patient had a most recent echocardiography done on 03/15/2018 that revealed ejection fraction 13% to 15%, moderate LV diastolic dysfunction, right ventricle is in normal size, left atrium is mildly dilated, right atrium is in normal size, normal aortic valve structure, normal mitral valve structure, moderate mitral regurgitation, mild tricuspid regurgitation, RV systolic pressure 33, dated 03/15/2018. This is important to mention; the patient had a repeat echocardiography on 09/08/2017. There was a transesophageal echo because of suspicious vegetation and it shows ejection fraction 15%. Atrial septum was intact. No evidence of atrial septal defect by color flow or bubble study. Partial flail anterior mitral valve leaflet, severe mitral regurgitation noted on this study. No vegetation noted in the AICD, dated 09/08/2017, there was echo before. SOCIAL HISTORY: Denies smoking. Denies any history of alcohol abuse. CURRENT MEDICATIONS: The patient is taking at home; oxycodone, Coumadin, nystatin, milrinone, antifungal medication, lisinopril, and amiodarone. REVIEW OF SYSTEMS: As per HPI. PHYSICAL EXAMINATION: Examination as follows; VITAL SIGNS: Temperature afebrile, heart rate 58, and blood pressure 134/80. HEENT: PERRLA. Extraocular muscles intact. NECK: Supple. No carotid bruits or thyromegaly. CHEST: Clear to auscultation. HEART: S1 and S2 regular. ABDOMEN: Soft. EXTREMITIES: Clubbing and cyanosis negative. LABORATORY DATA: Blood workup as follows; WBC 8.6, hemoglobin 10, hematocrit 36.3, and platelet count 267. Chemistry shows sodium 140, potassium 3.5, chloride 105, carbon dioxide 33, anion gap of 9, BUN 18, creatinine 1.0, and troponin 0.02. EKG shows sinus hoda at a rate of 50. IMPRESSION: A 52-year-old female with past medical history significant for nonischemic cardiomyopathy, history of automatic implantable cardioverter defibrillator, status post automatic implantable cardioverter defibrillator removal because of endocarditis, history of new implant, history of fungal fungemia, history of patent foramen ovale, but recent echo did not show any evidence of patent foramen ovale, history of deep venous thrombosis, pulmonary embolism, history of nonischemic cardiomyopathy. Recently discharged from [facility]; day before yesterday, admitted with the dizziness. RECOMMENDATIONS: Supplement potassium, do orthostatic hypotension, remained stable. Discussed with . Probably discharge home tomorrow. The patient is on home Primacor and transplant list, being followed at [facility]. We will resume back Primacor. We will continue rest of the baseline medications. We will follow with you. Also do the orthostatic hypotension. We will supplement 40 of K-Dur now. Admitting INR was elevated at 3.72. We will repeat the INR tomorrow and depending upon this, we will restart Coumadin. We will also resume back Lasix from tomorrow. The patient is actually 1 mg p.o. b.i.d., we will resume back. First, we will check orthostatic hypotension. Thank you for providing us the opportunity in taking care of the patient, Stephanie Siddiqui. Roberto Jones MD
--- NOTE | 2018-06-04 20:34 | CARD ---
APPROVED REPORT Date of service: 06/04/2018 EKG Measurement Heart [id number] <Conclusion> Sinus bradycardia with 1st degree AV block with occasional premature ventricular complexes Possible Left atrial enlargement Left axis deviation Low voltage QRS Possible Inferior infarct, age undetermined Abnormal ECG
--- NOTE | 2018-06-04 23:31 | HP ---
DATE OF EXAM: 06/04/2018 HISTORY OF PRESENT ILLNESS: This is a 52-year-old female who is coming to the hospital with headaches and back pain. She says she had a fall. She became lightheaded and fell on hit her head. The patient says she had fallen backwards. She had gone to [facility] and was discharged. She continued to have dizziness and she came in here for further evaluation. The patient has a complicated cardiac history. She has history of lupus, adrenal insufficiency, and has been on chronic steroids. She has a history of cardiomyopathy with an EF of 15% and has an AICD. Her primary carbonation equipment tender is Dr. Kahn. She has been treated with endocarditis. She apparently is on the heart transplant list. She is on Coumadin. The patient does have a history of CVA and had right-sided residual weakness. She says that she is feeling better. Her dizziness has improved. She has no abdominal pain. No back pain. No dysuria or frequency. No nocturia. No weakness in the arms and the legs. All of the review of symptoms are within normal limits except what is mentioned. ALLERGIES: TRAMADOL. PAST MEDICAL HISTORY: As above. PAST SURGICAL HISTORY: She had breast biopsy, hematoma evacuation, , AICD and pacemaker. SOCIAL HISTORY: She is a former smoker, she quit about 5 years ago and denies any alcohol or drug use. She has a [id number] history of smoking. FAMILY HISTORY: Father had a transplant, mother had esophageal cancer. HOME MEDICATIONS: She is on hydrocortisone, Coumadin, Percocet 10 mg for pain. She is on Xanax 0.5 mg. She is on Primacor drip at home. She is receiving vitamin D. She is on amiodarone. She is on folic acid, metoprolol and Lisinopril. PHYSICAL EXAMINATION: VITAL SIGNS: The patient has a temperature of 98.4, pulse is 65, blood pressure 119/77 and respirations 18. Height is 5 feet 3 inches. Weight is 189 pounds. BMI is 33.6. GENERAL: The patient lying in bed, uncomfortable, and in no acute distress. HEENT: Atraumatic and normocephalic. Anicteric sclerae. Moist mucosa. [place] conjunctivae. No oral lesions. NECK: No JVD, anterior and posterior adenopathy, thyromegaly, or bruits. CARDIOVASCULAR: S1 and S2 regular. No murmur, rubs, or gallop. LUNGS: Clear to auscultation bilaterally. No wheezes, rales, or rhonchi. ABDOMEN: Bowel sounds are positive. Soft, nontender and nondistended. No hepatosplenomegaly. No rebound and no guarding EXTREMITIES: No cyanosis, clubbing, or edema. NEUROLOGIC: No facial asymmetry. Tongue is midline. No vulva deviation. Power is 5/5 upper extremity and lower extremity. Sensation intact in upper extremity and lower extremity. PSYCHIATRIC: She is awake, alert and oriented x3. No anxiety or depression. She has normal affect. GENITOURINARY: No CVA tenderness. VASCULAR: 2+ pulses in the carotid pulses and pedal pulses. SKIN: No erythema or nodules SPINE: Shows normal curvature. LABORATORY DATA: White count of 8.6, hemoglobin 10.5 and platelet count 267. INR is 3.7. Sodium is 144, potassium is 3.5, creatinine 1 and alk phos of 81. CT of the abdomen and pelvis done shows no acute abdominopelvic pathology. There are punctate calcifications that are found in the spine that were present prior. Cervical spine x-ray shows straightening of the normal lordosis. No acute fractures. Chest x-ray shows no active disease, there is a right-sided PICC line. CT of the head done, shows no acute intracranial pathology. There are old bilateral infarcts. EKG; there is sinus hoda with first-degree AV block. No ST-T changes. ASSESSMENT: 1. Fall. 2. Dizziness. 3. Cardiomyopathy with an ejection fraction of 15%, status post automatic implantable cardioverter-defibrillator. 4. History of cerebrovascular accident with residual right-sided weakness. 5. Adrenal insufficiency, on chronic steroids. 6. Lupus. 7. Anxiety. 8. Peripherally inserted central catheter line, on Primacor. PLAN: The patient is currently admitted to the hospital. She does have an elevated INR. I will hold her Coumadin. I will repeat her INR tomorrow. She has adrenal insufficiency history, so I will continue her hydrocortisone. She has not weaned to a lower dose from home, she takes hydrocortisone 40 mg in the morning and 30 mg in the evening. I will continue the 40 mg and try to help her wean. The patient is on Flonase, this will be continued. She is on Lasix. I did speak for Dr. Jones regarding the patient, he will follow the patient on consultation. I have also asked Dr. Li to evaluate the patient from Neurology. She will continue her milrinone drip at 0.125 mcg/kg/minute. The patient is on lisinopril for her cardiomyopathy. She has congestive heart failure secondary to systolic dysfunction that is chronic. She will need another MRI as she was need another CAT scan done in 24 hours, I have ordered that as well. She is on a heart healthy diet. She is on telemetry. She will continue her Bumex. This is coverage for Dr. Fernandes. Kimo Solis MD
[2018-06-05 06:36] VITALS: O2SAT 97
[2018-06-05] MEDS: Milrinone 20mg/100ml D5W 100 ML IV PRN (06:59)
[2018-06-05 08:05] LABS: INR 3.18; PROTHROMBIN TIME 37.5 SECONDS (9.4-12.5)
--- NOTE | 2018-06-05 08:11 | CP.PCM.PN ---
Subjective - Date & Time of Evaluation Date of Evaluation: 06/05/18 Time of Evaluation: 06:50 - Subjective Subjective: Awake, alert, no distress, feeling better, wanted to go home Reason for consultation and follow up:Cardiac evaluation of coronary artery disease, history of non-ischemic cardiomyopathy, severly decreased LV function LVEF 15%, status post AICD Seen and examined by me and Dr. Jones Objective - Vital Signs/Intake and Output Vital Signs (last 24 hours): Temp Pulse Resp BP Pulse Ox 97.8 F 93 H 20 119/77 97 06/05/18 06:00 06/05/18 06:59 06/05/18 06:00 06/05/18 06:59 06/05/18 06:00 Intake and Output: 06/05/18 06/05/18 06:59 18:59 Intake Total 2918 Output Total 12 Balance 2906 - Medications Medications: Current Medications Alprazolam (Xanax) 0.25 mg PO QID [facility]; Protocol Stop: 06/11/18 10:01 Last Admin: 06/05/18 01:49 Dose: Not Given Amiodarone HCl (Cordarone) 200 mg PO DAILY [facility] Last Admin: 06/04/18 10:42 Dose: 200 mg Bumetanide (Bumex) 1 mg PO BID [facility] Last Admin: 06/04/18 17:35 Dose: 1 mg Fluticasone Propionate (Flonase) 1 actuation NS DAILY [facility] Last Admin: 06/04/18 10:43 Dose: 1 spray Folic Acid (Folic Acid) 1 mg PO DAILY [facility] Last Admin: 06/04/18 10:41 Dose: 1 mg Hydrocortisone (Cortef) 40 mg PO DAILY [facility] Last Admin: 06/04/18 10:58 Dose: 40 mg Milrinone Lactate/Dextrose (Primacor 20mg/100ml D5w) 100 mls @ 3.232 mls/hr IV .Q24H PRN; Protocol PRN Reason: TITRATE PER MD ORDER Last Admin: 06/05/18 06:59 Dose: 0.125 mcg/kg/min, 3.232 mls/hr Lisinopril (Zestril) 2.5 mg PO DAILY [facility] Last Admin: 06/04/18 10:42 Dose: 2.5 mg Metoprolol Succinate (Toprol Xl) 12.5 mg PO QPM [facility] Last Admin: 12/30/18 17:36 Dose: 12.5 mg Oxycodone/Acetaminophen (Percocet 10/325 Mg Tab) 1 tab PO Q4H PRN PRN Reason: Pain, moderate (4-7) Last Admin: 06/04/18 23:56 Dose: 1 tab - Labs Labs: 06/04/18 00:45 06/04/18 00:45 PT 37.5 SECONDS (9.4-12.5) H 06/05/18 07:15 INR 3.18 06/05/18 07:15 - Constitutional Appears: Non-toxic, No Acute Distress - Head Exam Head Exam: NORMAL INSPECTION, NORMOCEPHALIC - Eye Exam Eye Exam: Normal appearance Pupil Exam: NORMAL ACCOMODATION - ENT Exam ENT Exam: Mucous Membranes Moist, Normal Exam - Respiratory Exam Respiratory Exam: Decreased Breath Sounds, Clear to Ausculation Bilateral, NORMAL BREATHING PATTERN - Cardiovascular Exam Cardiovascular Exam: REGULAR RHYTHM, +S1, +S2 Additional comments: AICD/PPM - GI/Abdominal Exam GI & Abdominal Exam: Soft, Normal Bowel Sounds - Extremities Exam Extremities Exam: Full ROM, Normal Capillary Refill - Neurological Exam Neurological Exam: Alert, Awake, Oriented x3 - Psychiatric Exam Psychiatric exam: Normal Affect, Normal Mood - Skin Skin Exam: Dry, Normal Color, Warm Assessment and Plan - Assessment and Plan (Free Text) Assessment: A 52 year old female who came in to the ER due to fall. She felt lightheaded and fell backwards hitting her head. She was just recently discharged from [facility] due to dizziness. History of chronic lower back pain due to herniated disc on Percocet, SLE, adrenal insufficiency on chronic steroids, congestive heart failure due to non-ischemic cardiomyopathy EF 15%, on home Primacor, s/p AICD/PPM, recent generator [place] [address] Kahn due to endocarditis, on heart transplant list RW, patent foramen ovale,ASD, on Warfarin, CVA x2 w/ residual right-sided weakness, non-malignant breast calcifications,bilateral PE, anxiety, depression, and pacemaker. Rule out orthosthatic hypotension. CT of head negative for bleeding. Plan: Feels better, wanted to go home Cardiac status stable Started on Primacor yesterday, on home Primacor Heart rate and blood pressure stable On Cordarone 200 mg daily, Bumex 1 mg BID,Hydrocortisone 40 mg daily,Lisinopril 2.5 mg daily Metoprolol 12.5 mg daily Continue current treatment Continue current medications Hold Coumadin for elevated INR Seen by Neuro Physical therapy for gait May discharge from cardiac standpoint and follow up with [employer] Will follow up Plan and treatment discussed with Dr. Jones
[2018-06-05] MEDS: Oxycodone/Acetaminophen 10/325 mg Tab PO PRN (10:00)
[2018-06-05 11:41] LABS: ALB/GLOB RATIO 0.9 (1.1-1.8); ALBUMIN 3.4 g/dL (3.0-4.8); ALT/SGPT 21 U/L (7-56); AST/SGOT 16 U/L (14-36); BLOOD UREA NITROGEN 15 mg/dL (7-21); CALCIUM 8.3 mg/dL (8.4-10.5); GFR NON-AFRICAN AMERICAN > 60
[2018-06-05] MEDS ORDERED: Potassium Chloride 20 mEq ER Tab PO ONE (13:00)
[2018-06-05] MEDS: Fluticasone Nasal 50 mcg/Spray NS SCH (14:01)
[2018-06-05 14:42] VITALS: BP 115/76; PULSE 65; RESP 18; TEMP 98.4
--- NOTE | 2018-06-05 17:47 | PN ---
DATE: 06/05/2018 REASON FOR CONSULTATION: Followup, cardiac evaluation, coronary artery disease, nonobstructive, history of non-ischemic cardiomyopathy, decreased LV function, status post AICD, admitted with feeling dizzy and instability gait, recently discharged from [facility]. This note is an addition to note dictated by nurse practitioner. CVS status is stable. SUBJECTIVE: The patient also on home Primacor, on antifungal medication as well. RECOMMENDATION: Continue . Continue amiodarone for paroxysmal atrial fibrillation. Continue metoprolol. We will discontinue telemetry. Okay to be discharge from Cardiology point of view. We will discontinue telemetry. Upon discharge, the patient will be follow with Dr. Kahn. We will give another 40 of potassium at 01:[address] Fernandes, for providing us the opportunity in taking care of the patient, Stephanie Siddiqui. Roberto Jones MD
--- NOTE | 2018-06-06 00:31 | DS ---
HISTORY OF PRESENT ILLNESS: The patient is a 60-year-old black female, who states that she lost balance and she fell, hitting her head. She initially went to medical center, but she states they observed her and sent her home. She still was feeling weak and dizzy. Since she came to the emergency room, she was seen and examined by Dr. Jones. The patient is on milrinone drip. She has history of cardiomyopathy with poor ejection fraction of 15%. She is under the care of Dr. Kahn and she is on milrinone drip at home. The cardiomyopathy is secondary to her lupus and she also suffers from chronic back pain and from this, she is under the care of pain management. She is also evaluated by neurologist, no acute abnormality noted, probably she developed lumbosacral sprain and physical therapy was recommended. CT scan showed old bilateral infarct. PHYSICAL EXAMINATION: GENERAL: The patient is awake, alert, oriented and communicative. Complain of lower back pain, but does not seemed to be in any distress. Denies any nausea or vomiting. Eating and tolerating well. VITAL SIGNS: She is afebrile, pulse 93, respirations 20, and blood pressure 119/77. LUNGS: Bilateral fair airflow. No rhonchi or crackle. HEART: S1 and S2 audible. ABDOMEN: Soft, nontender. No rebound. No guarding. NEUROLOGICAL: The patient is awake, alert, oriented, communicative and ambulatory. LABORATORY EXAM: Her PT is 37.5. INR is 3.18. Chemistry: Sodium 144, potassium 3.5, chloride 105, CO2 of 33, BUN 18, creatinine 1, blood sugar of 87. BNP 4720. ASSESSMENT AND PLAN: Follow up CMP. If electrolyte is fine, the patient will be discharged to home today. She can follow up with her primary care physician and she will follow up with her cardiology and she will continue her milrinone drip. She is going to resume all her medication as prior to admission. Chalo Fernandes MD
== END 2018-06-05 17:09 | disposition home or self-care (01) ==
LOC: ED 23:56 → INTOOBSV 06-04 03:08 → ERH 06-04 03:08 → 2RSO 06-04 05:30
PROVIDERS: ADMIT Internal Medicine; ATTEND Internal Medicine
DX: R42 Dizziness and giddiness (principal); I50.22 Chronic systolic (congestive) heart failure; M32.9 Systemic lupus erythematosus, unspecified; I42.9 Cardiomyopathy, unspecified; M54.17 Radiculopathy, lumbosacral region; E27.40 Unspecified adrenocortical insufficiency; I48.0 Paroxysmal atrial fibrillation; I25.10 Atherosclerotic heart disease of native coronary artery without angina pectoris; G62.9 Polyneuropathy, unspecified; K21.9 Gastro-esophageal reflux disease without esophagitis; I69.351 Hemiplegia and hemiparesis following cerebral infarction affecting right dominant side; I08.1 Rheumatic disorders of both mitral and tricuspid valves; F32.9 Major depressive disorder, single episode, unspecified; Z76.82 Awaiting organ transplant status; Z79.01 Long term (current) use of anticoagulants; Z87.891 Personal history of nicotine dependence; Z79.52 Long term (current) use of systemic steroids; Z95.810 Presence of automatic (implantable) cardiac defibrillator; Z86.711 Personal history of pulmonary embolism
CPT/HCPCS: 36415; 70450; 71046; 72125; 74177; 80053; 83880; 84484; 85025; 85610; 93005; 96374; 99285; G0378; J1940; J2260; Q9967

== ENCOUNTER 2018-06-19 02:46 | Inpatient (IN) | payer MEDICARE, MEDICAID ==
--- NOTE | 2018-06-19 02:49 | ED PDOC ---
Arrival/HPI - General Time Seen by Provider: 06/19/18 02:48 Historian: Patient - History of Present Illness Narrative History of Present Illness (Text): 06/19/18 02:48 Stephanie Siddiqui is a 52 year old female, whose past medical history includes CHF, AICD/pacemaker, lupus, CVA, and adrenal insufficiency, who presents to the Emergency department brought in by EMS for respiratory distress. As per EMS, patient began experiencing progressively worsening shortness of breath today and notified EMS. Patient was placed on a CPAP and administered Duoneb and 2 sublingual Nitroglycerin tablets en route to the hospital. Limited HPI and ROS secondary to patient's respiratory distress. Symptom Onset: Gradual Symptom Course: Unchanged Activities at Onset: Light Context: Home Past Medical History - Provider Review Nursing Documentation Reviewed: Yes - Past History Past History: Non-Contributing - Infectious Disease Hx of Infectious Diseases: None - Tetanus Immunization Tetanus Immunization: Unknown - Past Medical History Past Medical History: Non-Contributing - Cardiac Hx Cardiac Disorders: Yes Hx Pacemaker: Yes Other/Comment: as per pt: cardiomyopathy - Pulmonary Hx Respiratory Disorders: Yes Hx Asthma: Yes Hx Pneumonia: Yes Hx Pulmonary Embolism: Yes - Neurological Hx Neurological Disorder: Yes HX Cerebrovascular Accident: Yes Hx Dizziness: Yes - HEENT Hx HEENT Disorder: Yes - Renal Hx Renal Disorder: No - Endocrine/Metabolic Hx Endocrine Disorders: Yes Hx Systemic Lupus Erythematosus: Yes - Hematological/Oncological Hx Cancer: No - Integumentary Hx Dermatological Disorder: Yes - Musculoskeletal/Rheumatological Hx Musculoskeletal Disorders: Yes Hx Back Pain: Yes - Gastrointestinal Hx Gastrointestinal Disorders: Yes Hx Gastroesophageal Reflux: Yes - Genitourinary/Gynecological Hx Genitourinary Disorders: Yes Hx Reproductive Disorders: Yes - Psychiatric Hx Psychophysiologic Disorder: Yes Hx Anxiety: Yes Hx Depression: Yes Hx Panic Disorder: Yes Hx Substance Use: No - Past Surgical History Past Surgical History: No Previous - Surgical History Other/Comment: PACEMAKER - Anesthesia Hx Anesthesia: Yes Hx Anesthesia Reactions: No Hx Malignant Hyperthermia: No - Suicidal Assessment Feels Threatened In Home Enviroment: No Family/Social History - Physician Review Nursing Documentation Reviewed: Yes Family/Social History: Unknown Family HX Smoking Status: Former Smoker Hx Alcohol Use: No Hx Substance Use: No Hx Substance Use Treatment: No Allergies/Home Meds Allergies/Adverse Reactions: Allergies tramadol [From Ultram] Adverse Reaction (Unknown, Verified 06/19/18 02:50) NAUSEA Home Medications: Home Meds Medication Instructions Recorded Confirmed Cholecalciferol (Vitamin D3) 1 tab PO DAILY 03/09/17 06/05/18 [Vitamin D3] Lisinopril [Zestril] 2.5 mg PO DAILY 05/06/17 06/05/18 ALPRAZolam [Xanax] 0.25 mg PO QID PRN 08/12/17 06/05/18 Albuterol HFA [Ventolin HFA 90 2 puff NEB Q4 PRN 08/12/17 06/05/18 mcg/actuation (8 g)] Amiodarone [Cordarone] 200 mg PO DAILY 08/12/17 06/05/18 Famotidine [Pepcid] 20 mg PO BID 08/12/17 06/05/18 Folic Acid 1 mg PO DAILY 08/12/17 06/05/18 Metoprolol Succinate XL [Toprol XL] 12.5 mg PO QPM 08/12/17 06/05/18 Warfarin Sodium [Jantoven] 2 mg PO DAILY 09/04/17 06/05/18 Milrinone [Primacor 1mg/ml Inj 436 mg IV CONT 02/27/18 06/05/18 (10ml)] Bumetanide [Bumex] 1 mg PO BID 03/11/18 06/05/18 Levocetirizine Dihydrochloride 5 mg PO HS 03/11/18 06/05/18 [Allergy Relief] Oxycodone HCl/Acetaminophen 1 tab PO BID PRN 03/11/18 06/05/18 [Percocet 10-325 mg Tablet] Review of Systems - Review of Systems Systems not reviewed;Unavailable: Respiratory Distress Respiratory: SOB Physical Exam Vital Signs Reviewed: Yes Temperature: Afebrile Blood Pressure: Hypertensive Pulse: Tachycardic Respiratory Rate: Normal Appearance: Positive for: Non-Toxic Pain Distress: Mild Mental Status: Positive for: Alert and Oriented X 3 - Systems Exam Head: Present: Atraumatic, Normocephalic Pupils: Present: PERRL Extroacular Muscles: Present: EOMI Conjunctiva: Present: Normal Mouth: Present: Moist Mucous Membranes Neck: Present: Normal Range of Motion Respiratory/Chest: Present: Respiratory Distress (Mild respiratory distress), Rhonchi (Rhonchi bilaterally). No: Accessory Muscle Use Cardiovascular: Present: Regular Rate and Rhythm, Normal S1, S2. No: Murmurs Abdomen: No: Tenderness, Distention, Peritoneal Signs Back: Present: Normal Inspection Upper Extremity: Present: Normal Inspection. No: Cyanosis, Edema Lower Extremity: Present: Normal Inspection. No: Edema Neurological: Present: GCS=15, CN II-XII Intact, Speech Normal Skin: Present: Warm, Dry, Normal Color. No: Rashes Psychiatric: Present: Alert, Oriented x 3, Normal Insight, Normal Concentration Medical Decision Making ED Course and Treatment: 06/19/18 02:48 Impression: 52 year old female brought in for respiratory distress. Plan: -- EKG -- Chest X-ray -- Labs, cardiac enzymes, BNP -- Duoneb -- Lasix -- Reassess and disposition Prior Visits: Notes and results from previous visits were reviewed. Progress Notes: Reviewed EKG, sinus tachycardia at 118 bpm. Occasional PVC. LAHB. Non-specific ST/T wave changes. 06/19/18 05:04 Central line placed by surgical and rn medical inpatient services at bedside, due to poor IV access. 06/19/18 05:[address] Cristopher Rader, telehealth director, who is aware and agrees with plan. State pt can be admitted to the ICU. compensation vice president notified. 06/19/18 05:[address] Fernandes, who is aware and agrees with plan. Accepts pt in to her service. Pt will be admitted to the ICU for CHF, rule out pneumonia. - Critical Care Critical Care Minutes: 30 minutes - EKG Interpretation Interpreted by ED Physician: Yes Type: 12 lead EKG - Scribe Statement The provider has reviewed the documentation as recorded by the Gladis Crawford Provider Scribe Attestation: All medical record entries made by the Scribe were at my direction and personally dictated by me. I have reviewed the chart and agree that the record accurately reflects my personal performance of the history, physical exam, medical decision making, and the department course for this patient. I have also personally directed, reviewed, and agree with the discharge instructions and disposition. Disposition/Present on Arrival - Present on Arrival Any Indicators Present on Arrival: No History of DVT/PE: No History of Uncontrolled Diabetes: No Urinary Catheter: No History Surgical Site Infection Following: None - Disposition Have Diagnosis and Disposition been Completed?: Yes Diagnosis: Cardiomyopathy, CHF (congestive heart failure) Disposition: HOSPITALIZED Disposition Time: 05:43 Patient Plan: ICU Patient Problems: Current Active Problems Problem Status Onset Cardiomyopathy Acute CHF (congestive heart failure) Chronic Condition: GUARDED
[2018-06-19] MEDS ORDERED: Albuterol-Ipratrop 3 mg / 0.5 (3 ml) UD IH STA (02:51)
[2018-06-19 04:14] LABS: MEAN CELL VOLUME 85.3 fl (80.0-105.0); MEAN CORPUSCULAR HEMOGLOBIN 24.1 pg (25.0-35.0); MEAN CORPUSCULAR HGB CONC 28.3 g/dl (31.0-37.0); MEAN PLATELET VOLUME 11.2 fl (7.0-11.0); RBC 5.18 10^6/uL (3.5-6.1); RED CELL DISTRIBUTION WIDTH 17.6 % (11.5-14.5); WHITE BLOOD COUNT 16.7 10^3/uL (4.5-11.0)
[2018-06-19 04:16] LABS: ARTERIAL BLOOD GAS HCO3 30.4 mmol/L (21-28); ARTERIAL BLOOD GAS HEMOGLOBIN 12.3 g/dL (11.7-17.4); ARTERIAL BLOOD GAS O2 CAPACITY 17.1 mL/dl (16-24); ARTERIAL BLOOD GAS O2 CONTENT 16.9 ML/dl (15-23); ARTERIAL BLOOD GAS PCO2 55 mm/Hg (35-45); ARTERIAL BLOOD GAS PH 7.35 (7.35-7.45); ARTERIAL BLOOD GAS TCO2 32.1 mmol.L (22-28)
[2018-06-19 04:17] LABS: HEMOGLOBIN 12.5 g/dL (12.0-16.0)
[2018-06-19 04:23] LABS: PARTIAL THROMBOPLASTIN TIME 45.5 Seconds (25.1-36.5)
[2018-06-19 04:26] LABS: B-TYPE NATRIURETIC PEPTIDE 11000 pg/mL (0-450); TROPONIN I 0.05 ng/mL
[2018-06-19 04:27] LABS: PROTHROMBIN TIME 41.1 SECONDS (9.4-12.5)
[2018-06-19 04:29] LABS: INR 3.51
[2018-06-19 04:49] LABS: ALBUMIN 3.9 g/dL (3.0-4.8); ALT/SGPT 29 U/L (7-56); AST/SGOT 35 U/L (14-36); BLOOD UREA NITROGEN 19 mg/dL (7-21); CALCIUM 8.6 mg/dL (8.4-10.5); GFR NON-AFRICAN AMERICAN 53
[2018-06-19] MEDS ORDERED: cefTRIAXone 1 gm 1 GM/100 ML BAG IV STA (05:06)
[2018-06-19] MEDS ORDERED: Azithromycin 500MG/NS 250ml 500 MG/250 ML BAG IV STA (05:07)
--- NOTE | 2018-06-19 05:32 | CP.PCM.CON ---
History of Present Illness - History of Present Illness History of Present Illness: ICU Consultation CC: CHF Exacerbation HPI: Mrs. Karan Siddiqui is a 52 year old female with a past medical history significant for CHF secondary to non-ischemic cardiomyopathy (EF: 15%) s/p AICD, SLE, Adrenal Insufficiency, PFO, ASD, Atrial Fibrillation on Warfarin, CVA with residual right sided weakness, anxiety and depression who presents with progressive SOB for the past day. Patient is currently in respiratory distress and is unable to answer HPI and ROS questioning. According to chart review, patient called an ambulance earlier today after having SOB resistant to her home medications. Patient was started on CPAP and given two doses of Nitro SL in the field. Further ROS unobtainable at this time. PMH: As stated above PSH: Bilateral Breast Biopsy, Hematoma Evacuation, AICD, Biventricular PM, C- Section (1993) Family History: Father-Heart Transplant, Mother-Esophageal Cancer Social History: Denies any current tobacco, alcohol, or illicit drug use; Former tobacco use with 10 year pack smoking history and quit five years ago Allergies: Tramadol Home Medications: As per MAR PMD: Dr. Maxwell Review of Systems - Review of Systems Review of Systems: As stated in HPI, otherwise negative Past Patient History - Infectious Disease Hx of Infectious Diseases: None - Tetanus Immunizations Tetanus Immunization: Unknown - Past Medical History & Family History Past Medical History?: Yes - Past Social History Smoking Status: Former Smoker - CARDIAC Hx Cardiac Disorders: Yes Hx Pacemaker: Yes Other/Comment: as per pt: cardiomyopathy - PULMONARY Hx Respiratory Disorders: Yes Hx Asthma: Yes Hx Pneumonia: Yes Hx Pulmonary Embolism: Yes - NEUROLOGICAL Hx Neurological Disorder: Yes HX Cerebrovascular Accident: Yes Hx Dizziness: Yes - HEENT Hx HEENT Problems: Yes - RENAL Hx Chronic Kidney Disease: No - ENDOCRINE/METABOLIC Hx Endocrine Disorders: Yes Hx Systemic Lupus Erythematosus: Yes - HEMATOLOGICAL/ONCOLOGICAL Hx Cancer: No - INTEGUMENTARY Hx Dermatological Problems: Yes - MUSCULOSKELETAL/RHEUMATOLOGICAL Hx Musculoskeletal Disorders: Yes Hx Back Pain: Yes - GASTROINTESTINAL Hx Gastrointestinal Disorders: Yes Hx Gastroesophageal Reflux: Yes - GENITOURINARY/GYNECOLOGICAL Hx Genitourinary Disorders: Yes Hx Reproductive Disorders: Yes - PSYCHIATRIC Hx Psychophysiologic Disorder: Yes Hx Anxiety: Yes Hx Depression: Yes Hx Panic Symptoms: Yes Hx Substance Use: No - SURGICAL HISTORY Other/Comment: PACEMAKER - ANESTHESIA Hx Anesthesia: Yes Hx Anesthesia Reactions: No Hx Malignant Hyperthermia: No Meds Allergies/Adverse Reactions: Allergies Allergy/AdvReac Type Severity Reaction Status Date / Time tramadol [From Ultram] AdvReac Unknown NAUSEA Verified 06/19/18 02:50 - Medications Medications: Current Medications Ceftriaxone Sodium (Rocephin 1 Gram Ivpb) 1 gm in 100 mls @ 200 mls/hr IV ONCE STA; Protocol Stop: 06/19/18 05:35 Azithromycin (Zithromax 500mg In Ns) 500 mg in 250 mls @ 166.667 mls/hr IV STAT STA; Protocol Stop: 06/19/18 06:36 Physical Exam - Constitutional Appears: Chronically Ill - Head Exam Head Exam: ATRAUMATIC, NORMOCEPHALIC - Eye Exam Eye Exam: EOMI, Normal appearance - ENT Exam ENT Exam: Mucous Membranes Dry - Neck Exam Neck exam: Positive for: Full Rom - Respiratory Exam Respiratory Exam: Accessory Muscle Use, Decreased Breath Sounds, Rhonchi (Bilateral bases), Respiratory Distress. absent: Chest Wall Tenderness, Clear to Auscultation Bilateral, Rales, Wheezes, Stridor, NORMAL BREATHING PATTERN (On BiPAP) - Cardiovascular Exam Cardiovascular Exam: Tachycardia, REGULAR RHYTHM, +S1, +S2 - GI/Abdominal Exam GI & Abdominal Exam: Normal Bowel Sounds, Soft. absent: Tenderness - Extremities Exam Extremities exam: Positive for: pedal edema (+1 pitting edema bilaterally extending to calves), pedal pulses present. Negative for: calf tenderness - Neurological Exam Neurological exam: Altered - Skin Skin Exam: Dry, Warm Results - Vital Signs Recent Vital Signs: Last Vital Signs Temp Pulse 129 H 06/19/18 05:20 Resp 45 H 06/19/18 05:20 BP 148/104 H 06/19/18 05:20 Pulse Ox 99 06/19/18 05:20 - Labs Result Diagrams: 06/19/18 03:55 06/19/18 03:55 Labs: Laboratory Results - last 24 hr 06/19/18 06/19/18 06/19/18 03:55 03:55 03:55 WBC 16.7 H D RBC 5.18 Hgb 12.5 D Hct 44.2 MCV 85.3 MCH 24.1 L MCHC 28.3 L RDW 17.6 H Plt Count 265 MPV 11.2 H PT 41.1 H INR 3.51 H* APTT 45.5 H pCO2 pO2 HCO3 ABG pH ABG Total CO2 ABG O2 Saturation ABG O2 Content ABG Base Excess ABG Hemoglobin ABG Carboxyhemoglobin POC ABG HHb (Measured) ABG Methemoglobin ABG O2 Capacity Hgb O2 Saturation FiO2 Sodium 143 Potassium 3.9 Chloride 103 Carbon Dioxide 30 Anion Gap 14 BUN 19 Creatinine 1.1 Est GFR ( Amer) > 60 Est GFR (Non-Af Amer) 53 Random Glucose 239 H Calcium 8.6 Total Bilirubin 0.5 AST 35 ALT 29 Alkaline Phosphatase 155 H D Lactate Dehydrogenase 773 H Total Creatine Kinase 30 L Troponin I 0.05 D NT-Pro-B Natriuret Pep 78721 H Total Protein 7.8 Albumin 3.9 Globulin 3.9 Albumin/Globulin Ratio 1.0 L 06/19/18 04:06 WBC RBC Hgb Hct MCV MCH MCHC RDW Plt Count MPV PT INR APTT pCO2 55 H pO2 120.0 H HCO3 30.4 H ABG pH 7.35 ABG Total CO2 32.1 H ABG O2 Saturation 99.0 H ABG O2 Content 16.9 ABG Base Excess 3.6 H ABG Hemoglobin 12.3 ABG Carboxyhemoglobin 1.6 H POC ABG HHb (Measured) 1.0 ABG Methemoglobin 0.7 ABG O2 Capacity 17.1 Hgb O2 Saturation 96.6 FiO2 100.0 Sodium Potassium Chloride Carbon Dioxide Anion Gap BUN Creatinine Est GFR ( Amer) Est GFR (Non-Af Amer) Random Glucose Calcium Total Bilirubin AST ALT Alkaline Phosphatase Lactate Dehydrogenase Total Creatine Kinase Troponin I NT-Pro-B Natriuret Pep Total Protein Albumin Globulin Albumin/Globulin Ratio Assessment & Plan - Assessment and Plan (Free Text) Assessment: 52 year old female with a past medical history significant for CHF secondary to non-ischemic cardiomyopathy (EF: 15%) s/p AICD, SLE, Adrenal Insufficiency, PFO, ASD, Atrial Fibrillation on Warfarin, CVA with residual right sided weakness, anxiety and depression who presents with progressive SOB for the past day. Plan: 1. Acutely Decompensated CHF -Chest X-Ray pending official radi[place] [address] -ABG without gross abnormalities -Continue home Milrinone gtt at 0.8mls/hr -Holding home FELIZ/ARB, diuretics and BB in setting of hypotension -Strict I/O's and Daily Weights -Surgery consulted for central line placement -Cardiology consulted, all recommendations appreciated 2. Leukocytosis -Chest X-Ray pending official radiologist interpretation -UA showing no signs of UTI -Started on empiric therapy for HCAP-Vancomycin, Cefepime, and Doxycycline -Strep. Pneumo., Legionella, Mycoplasma, Influenza, khan cultures and procal pending -ID consulted, all recommendations appreciated GI Prophylaxis: Protonix DVT Prophylaxis: SCD's Diet: Heart Healthy Code Status: Full Code Patient seen and case discussed with attending, Dr. Yvette Rader. Doroteo Jauregui PGY2 - Date & Time Date: 06/19/18 Time: 07:29
[2018-06-19] MEDS ORDERED: Milrinone 20mg/100ml D5W 100 ML IV PRN ×3 (05:44→07:31)
--- NOTE | 2018-06-19 06:31 | CP.PCM.CON ---
History of Present Illness - History of Present Illness History of Present Illness: Surgery Consult Note- Dr. Arroyo Reason for Consult: Central Venous Access; required additional pressors 52F pmhx significant for CHF secondary to non-ischemic cardiomyopathy (EF: 15%) s/p AICD, home milrinoneSLE, Adrenal Insufficiency, PFO, ASD, Atrial Fibrillation on Warfarin, CVA with residual right sided weakness, anxiety and depression who presents with progressive SOB for the past day. Patient is currently in respiratory distress and is unable to answer HPI and ROS questioning. According to chart review, patient called an ambulance earlier today after having SOB resistant to her home medications. Patient was started on CPAP and given two doses of Nitro SL in the field. Further ROS unobtainable at this time. During the time of examination patient had blood pressures of 80/50, 77/53 while on milrinone. Pt had RUE PICC with single lumen PMH: As stated above PSH: Bilateral Breast Biopsy, Hematoma Evacuation, AICD, Biventricular PM, C- Section (1993) ALL: Tramadol SocialHx: Denies any current tobacco, alcohol, or illicit drug use; Former tobacco use with 10 year pack smoking history and quit five years ago FH: Father-Heart Transplant, Mother-Esophageal Cancer PMD: Dr. Maxwell Review of Systems - Review of Systems All systems: reviewed and no additional remarkable complaints except - Constitutional Constitutional: As Per HPI Past Patient History - Infectious Disease Hx of Infectious Diseases: None - Tetanus Immunizations Tetanus Immunization: Unknown - Past Medical History & Family History Past Medical History?: Yes - Past Social History Smoking Status: Former Smoker - CARDIAC Hx Cardiac Disorders: Yes Hx Pacemaker: Yes Other/Comment: as per pt: cardiomyopathy - PULMONARY Hx Respiratory Disorders: Yes Hx Asthma: Yes Hx Pneumonia: Yes Hx Pulmonary Embolism: Yes - NEUROLOGICAL Hx Neurological Disorder: Yes HX Cerebrovascular Accident: Yes Hx Dizziness: Yes - HEENT Hx HEENT Problems: Yes - RENAL Hx Chronic Kidney Disease: No - ENDOCRINE/METABOLIC Hx Endocrine Disorders: Yes Hx Systemic Lupus Erythematosus: Yes - HEMATOLOGICAL/ONCOLOGICAL Hx Cancer: No - INTEGUMENTARY Hx Dermatological Problems: Yes - MUSCULOSKELETAL/RHEUMATOLOGICAL Hx Musculoskeletal Disorders: Yes Hx Back Pain: Yes - GASTROINTESTINAL Hx Gastrointestinal Disorders: Yes Hx Gastroesophageal Reflux: Yes - GENITOURINARY/GYNECOLOGICAL Hx Genitourinary Disorders: Yes Hx Reproductive Disorders: Yes - PSYCHIATRIC Hx Psychophysiologic Disorder: Yes Hx Anxiety: Yes Hx Depression: Yes Hx Panic Symptoms: Yes Hx Substance Use: No - SURGICAL HISTORY Other/Comment: PACEMAKER - ANESTHESIA Hx Anesthesia: Yes Hx Anesthesia Reactions: No Hx Malignant Hyperthermia: No Meds Allergies/Adverse Reactions: Allergies Allergy/AdvReac Type Severity Reaction Status Date / Time tramadol [From Ultram] AdvReac Unknown NAUSEA Verified 06/19/18 02:50 - Medications Medications: Current Medications Azithromycin (Zithromax 500mg In Ns) 500 mg in 250 mls @ 166.667 mls/hr IV STAT STA; Protocol Stop: 06/19/18 06:36 Last Admin: 06/19/18 06:25 Dose: 166.667 mls/hr Milrinone Lactate/Dextrose (Primacor 20mg/100ml D5w) 100 mls @ 9.951 mls/hr IV .Q10H3M PRN; Protocol PRN Reason: TITRATE PER MD ORDER Physical Exam - Constitutional Appears: No Acute Distress, Chronically Ill - Head Exam Head Exam: ATRAUMATIC - Eye Exam Eye Exam: EOMI. absent: Scleral icterus - ENT Exam ENT Exam: Mucous Membranes Dry - Respiratory Exam Respiratory Exam: Wheezes, Respiratory Distress, NORMAL BREATHING PATTERN. absent: Accessory Muscle Use - Cardiovascular Exam Cardiovascular Exam: Tachycardia, REGULAR RHYTHM, +S1, +S2. absent: Bradycardia - GI/Abdominal Exam GI & Abdominal Exam: Soft. absent: Distended, Firm, Guarding, Tenderness - Extremities Exam Extremities exam: Negative for: calf tenderness Additional comments: RUE Picc in place, single lumen - Neurological Exam Neurological exam: Alert, Oriented x3 - Psychiatric Exam Psychiatric exam: Normal Affect - Skin Skin Exam: Intact, Warm Results - Vital Signs Recent Vital Signs: Last Vital Signs Temp Pulse 92 H 06/19/18 06:28 Resp 27 H 06/19/18 06:28 BP 103/35 L 06/19/18 06:28 Pulse Ox 100 06/19/18 06:28 - Labs Result Diagrams: 06/19/18 03:55 06/19/18 03:55 Labs: Laboratory Results - last 24 hr 06/19/18 06/19/18 06/19/18 03:55 03:55 03:55 WBC 16.7 H D RBC 5.18 Hgb 12.5 D Hct 44.2 MCV 85.3 MCH 24.1 L MCHC 28.3 L RDW 17.6 H Plt Count 265 MPV 11.2 H PT 41.1 H INR 3.51 H* APTT 45.5 H pCO2 pO2 HCO3 ABG pH ABG Total CO2 ABG O2 Saturation ABG O2 Content ABG Base Excess ABG Hemoglobin ABG Carboxyhemoglobin POC ABG HHb (Measured) ABG Methemoglobin ABG O2 Capacity Hgb O2 Saturation FiO2 Sodium 143 Potassium 3.9 Chloride 103 Carbon Dioxide 30 Anion Gap 14 BUN 19 Creatinine 1.1 Est GFR ( Amer) > 60 Est GFR (Non-Af Amer) 53 Random Glucose 239 H Calcium 8.6 Total Bilirubin 0.5 AST 35 ALT 29 Alkaline Phosphatase 155 H D Lactate Dehydrogenase 773 H Total Creatine Kinase 30 L Troponin I 0.05 D NT-Pro-B Natriuret Pep 44826 H Total Protein 7.8 Albumin 3.9 Globulin 3.9 Albumin/Globulin Ratio 1.0 L 06/19/18 04:06 WBC RBC Hgb Hct MCV MCH MCHC RDW Plt Count MPV PT INR APTT pCO2 55 H pO2 120.0 H HCO3 30.4 H ABG pH 7.35 ABG Total CO2 32.1 H ABG O2 Saturation 99.0 H ABG O2 Content 16.9 ABG Base Excess 3.6 H ABG Hemoglobin 12.3 ABG Carboxyhemoglobin 1.6 H POC ABG HHb (Measured) 1.0 ABG Methemoglobin 0.7 ABG O2 Capacity 17.1 Hgb O2 Saturation 96.6 FiO2 100.0 Sodium Potassium Chloride Carbon Dioxide Anion Gap BUN Creatinine Est GFR ( Amer) Est GFR (Non-Af Amer) Random Glucose Calcium Total Bilirubin AST ALT Alkaline Phosphatase Lactate Dehydrogenase Total Creatine Kinase Troponin I NT-Pro-B Natriuret Pep Total Protein Albumin Globulin Albumin/Globulin Ratio Assessment & Plan - Assessment and Plan (Free Text) Assessment: 52F w/ extensive pmhx HF w/ AICD, on milrinone, requiring central line access for additional pressors and venous access Plan: - Place Central line at bedside - confirm placement w/ CXR - no immediate complications - pt tolerated procedure well - no further acute surgical intervention required at this time - please reconsult as needed - will d/w Dr. Cruz Figueroa PGY2
[2018-06-19] MEDS ORDERED: Milrinone 20mg/100ml D5W 100 ML IV SCH ×2 (06:45→06:55)
[2018-06-19] MEDS ORDERED: Vancomycin 1.5 GM in Sodium Chloride 0.9% 500 ML IVPB SCH (07:00)
[2018-06-19 07:13] VITALS: BMI 32.6
--- NOTE | 2018-06-19 07:57 | PCM.PROC ---
Procedures Attestation:: I certify that I have explained the specified Operation(s) or Procedure(s), risks, benefits and reasonable alternatives to the Patient and/or other person responsible. The opportunity was given to ask questions and all questions answered - Central Line Placement Right Internal Jugular Triple Lumen Catheter Aseptic technique was employed throughout the procedure: Hand Hygiene done prior to procedure, Full sterile barriers (mask, hair cover, sterile gown, sterile gloves), Full body sterile drape, Chloraprep Antiseptic: 30 second prep for IJ or SC sites CVP Time Out Performed: Yes Pt. Placed on Pulse Ox Monitor: Yes Central Line Prep: Chlorhexidine-Alcohol Combination Local Anesthesia Used: Lidocaine 1% Ultrasound Used for Placement: Yes Central Line Lumen Inserted: triple Central Line Length: 16 cm Post Procedure: Sutured in Place, Good Blood Return, All Ports Aspirated, Flushed, Capped, Sterile Dressing Applied Secured by: Securement device Post procedure dressing: Clear vapor permeable, Chlorhexidine disc (Biopatch) Post Procedure X-Ray: Yes Patient Tolerated Procedure: Well, No Complications Immediate Complications: None
[2018-06-19] MEDS ORDERED: NOREPINEPHRINE BIT/0.9 % NACL 4 MG/250 ML BAG IV PRN ×2 (08:17→12:08)
[2018-06-19 08:46] LABS: BASO # 0.02 K/mm3 (0.0-2.0); BASO % 0.2 % (0.0-3.0); EOS % 0.2 % (1.5-5.0); GRAN # 10.29 (1.4-6.5); GRAN % 79.9 % (50.0-68.0); HEMOGLOBIN 10.6 g/dL (12.0-16.0); LYMPH # 1.7 (1.2-3.4); MEAN CELL VOLUME 83.9 fl (80.0-105.0); MEAN CORPUSCULAR HEMOGLOBIN 23.7 pg (25.0-35.0); MEAN CORPUSCULAR HGB CONC 28.2 g/dl (31.0-37.0); MEAN PLATELET VOLUME 10.4 fl (7.0-11.0); MONO # 0.9 (0.1-0.6); MONO % 6.7 % (1.0-6.0); RBC 4.48 10^6/uL (3.5-6.1); RED CELL DISTRIBUTION WIDTH 17.5 % (11.5-14.5); WHITE BLOOD COUNT 12.9 10^3/uL (4.5-11.0)
[2018-06-19 08:57] LABS: ALB/GLOB RATIO 0.9 (1.1-1.8)
[2018-06-19] MEDS ORDERED: Cefepime IV 2 gm in NS 2 GM/100 ML BAG IVPB SCH (10:00)
--- NOTE | 2018-06-19 10:00 | RAD ---
Date of service: 06/19/2018 HISTORY: CHF exacerbation; IJ line placement COMPARISON: 06/04/2018 FINDINGS: LUNGS: Alveolar infiltrates are seen in both lower lobes. The upper lobes are clear. There is a new right IJ line that terminates in the SVC with no pneumothorax. PLEURA: No significant pleural effusion identified, no pneumothorax apparent. CARDIOVASCULAR: No aortic atherosclerotic calcification present. Normal cardiac size. No pulmonary vascular congestion. OSSEOUS STRUCTURES: No significant abnormalities. VISUALIZED UPPER ABDOMEN: Normal. OTHER FINDINGS: None. IMPRESSION: Alveolar infiltrates are seen in both lower lobes. The upper lobes are clear. There is a new right IJ line that terminates in the SVC with no pneumothorax.
--- NOTE | 2018-06-19 10:29 | CP.PCM.CON ---
<Jacob Us - Last Filed: 06/19/18 14:46> History of Present Illness - History of Present Illness History of Present Illness: ID Consult Note 52 year old female with past medical history of CHF with EF of 15% s/p AICD placement, SLE, adrenal insufficiency, A-fib on warfarin, CVA with residual right sided weakness, anxiety, depression, and PFO presents to the hospital for progressive shortness of breath. Patient currently on BIPAP and lethargic. Medical history obtained from prior medical records. According to medical charts, patient presented to the ED with progressive shortness of breath for 1 day. Patient was brought into the hospital by ambulance. Medical Hx: As above Surgical Hx: Bilateral Breast Biopsy, Hematoma Evacuation, AICD, Biventricular PM, Family Hx: Mother-Esophageal Cancer Social History: Denies alcohol or illicit drug use; Former tobacco use with 10 year pack smoking history and quit five years ago Allergies: Tramadol Medications: As per MAR Review of Systems - Review of Systems Systems not reviewed;Unavailable: Respiratory Distress Past Patient History - Infectious Disease Hx of Infectious Diseases: None - Tetanus Immunizations Tetanus Immunization: Unknown - Past Medical History & Family History Past Medical History?: Yes - Past Social History Smoking Status: Former Smoker - CARDIAC Hx Cardiac Disorders: Yes Hx Pacemaker: Yes Other/Comment: as per pt: cardiomyopathy - PULMONARY Hx Respiratory Disorders: Yes Hx Asthma: Yes Hx Pneumonia: Yes Hx Pulmonary Embolism: Yes - NEUROLOGICAL Hx Neurological Disorder: Yes HX Cerebrovascular Accident: Yes Hx Dizziness: Yes - HEENT Hx HEENT Problems: Yes - RENAL Hx Chronic Kidney Disease: No - ENDOCRINE/METABOLIC Hx Endocrine Disorders: Yes Hx Systemic Lupus Erythematosus: Yes - HEMATOLOGICAL/ONCOLOGICAL Hx Cancer: No - INTEGUMENTARY Hx Dermatological Problems: Yes - MUSCULOSKELETAL/RHEUMATOLOGICAL Hx Musculoskeletal Disorders: Yes Hx Back Pain: Yes - GASTROINTESTINAL Hx Gastrointestinal Disorders: Yes Hx Gastroesophageal Reflux: Yes - GENITOURINARY/GYNECOLOGICAL Hx Genitourinary Disorders: Yes Hx Reproductive Disorders: Yes - PSYCHIATRIC Hx Psychophysiologic Disorder: Yes Hx Anxiety: Yes Hx Depression: Yes Hx Panic Symptoms: Yes Hx Substance Use: No - SURGICAL HISTORY Other/Comment: PACEMAKER - ANESTHESIA Hx Anesthesia: Yes Hx Anesthesia Reactions: No Hx Malignant Hyperthermia: No Meds Allergies/Adverse Reactions: Allergies Allergy/AdvReac Type Severity Reaction Status Date / Time tramadol [From Ultram] AdvReac Unknown NAUSEA Verified 06/19/18 02:50 - Medications Medications: Current Medications Hydrocortisone Sodium Succinate (Solu-Cortef) 50 mg IVP Q8 [facility] Last Admin: 06/19/18 10:24 Dose: 50 mg Doxycycline Hyclate 100 mg/ (Sodium Chloride) 100 mls @ 100 mls/hr IVPB Q12 ANA LILIA; Protocol Last Admin: 06/19/18 10:22 Dose: 100 mls/hr Cefepime HCl (Maxipime 2gm) 2 gm in 100 mls @ 100 mls/hr IVPB Q12 ANA LILIA; Protocol Stop: 06/24/18 10:01 Last Admin: 06/19/18 09:52 Dose: 100 mls/hr Milrinone Lactate/Dextrose (Primacor 20mg/100ml D5w) 100 mls @ 9.731 mls/hr IV .[id number] PRN; Protocol PRN Reason: TITRATE PER MD ORDER Potassium Chloride (Potassium Chloride 20 Meq/100 Ml) 20 meq in 100 mls @ 50 mls/hr IVPB Q2H ANA LILIA Stop: 06/19/18 13:59 Potassium Chloride (Potassium Chloride 20 Meq/100 Ml) 20 meq in 100 mls @ 50 mls/hr IVPB ONCE ONE Stop: 06/19/18 11:59 Last Admin: 06/19/18 10:25 Dose: 50 mls/hr Pantoprazole Sodium (Protonix Ec Tab) 40 mg PO 0600 [facility] Physical Exam - Constitutional Appears: Toxic, In Acute Distress - Head Exam Head Exam: ATRAUMATIC, NORMAL INSPECTION, NORMOCEPHALIC - ENT Exam ENT Exam: Mucous Membranes Dry - Respiratory Exam Respiratory Exam: Decreased Breath Sounds, Rales. absent: Rhonchi, Wheezes Additional comments: On BIPAP - Cardiovascular Exam Cardiovascular Exam: Irregular Rhythm - GI/Abdominal Exam GI & Abdominal Exam: Normal Bowel Sounds, Soft. absent: Tenderness - Extremities Exam Extremities exam: Positive for: pedal edema (Trace b/l) - Neurological Exam Additional comments: Lethargic - Skin Skin Exam: Dry, Intact, Warm Results - Vital Signs Recent Vital Signs: Last Vital Signs Temp 97.6 F 06/19/18 07:11 Pulse 85 06/19/18 10:12 Resp 24 06/19/18 10:12 BP 83/56 L 06/19/18 10:12 Pulse Ox 98 06/19/18 10:12 - Labs Result Diagrams: 06/19/18 08:30 06/19/18 08:30 Labs: Laboratory Results - last 24 hr 06/19/18 06/19/18 06/19/18 03:55 03:55 03:55 WBC 16.7 H D RBC 5.18 Hgb 12.5 D Hct 44.2 MCV 85.3 MCH 24.1 L MCHC 28.3 L RDW 17.6 H Plt Count 265 MPV 11.2 H Gran % Lymph % (Auto) [place] % (Auto) Eos % (Auto) Baso % (Auto) Gran # Lymph # (Auto) [place] # (Auto) Eos # (Auto) Baso # (Auto) PT 41.1 H INR 3.51 H* APTT 45.5 H pCO2 pO2 HCO3 ABG pH ABG Total CO2 ABG O2 Saturation ABG O2 Content ABG Base Excess ABG Hemoglobin ABG Carboxyhemoglobin POC ABG HHb (Measured) ABG Methemoglobin ABG O2 Capacity Hgb O2 Saturation FiO2 Sodium 143 Potassium 3.9 Chloride 103 Carbon Dioxide 30 Anion Gap 14 BUN 19 Creatinine 1.1 Est GFR ( Amer) > 60 Est GFR (Non-Af Amer) 53 Random Glucose 239 H Calcium 8.6 Total Bilirubin 0.5 AST 35 ALT 29 Alkaline Phosphatase 155 H D Lactate Dehydrogenase 773 H Total Creatine Kinase 30 L Troponin I 0.05 D NT-Pro-B Natriuret Pep 35195 H Total Protein 7.8 Albumin 3.9 Globulin 3.9 Albumin/Globulin Ratio 1.0 L Influenza Typ A,B (EIA) 06/19/18 06/19/18 06/19/18 04:06 07:40 08:30 WBC 12.9 H D RBC 4.48 Hgb 10.6 L Hct 37.6 MCV 83.9 MCH 23.7 L MCHC 28.2 L RDW 17.5 H Plt Count 190 MPV 10.4 Gran % 79.9 H Lymph % (Auto) 13.0 L [place] % (Auto) 6.7 H Eos % (Auto) 0.2 L Baso % (Auto) 0.2 Gran # 10.29 H Lymph # (Auto) 1.7 [place] # (Auto) 0.9 H Eos # (Auto) 0.0 Baso # (Auto) 0.02 PT INR APTT pCO2 55 H pO2 120.0 H HCO3 30.4 H ABG pH 7.35 ABG Total CO2 32.1 H ABG O2 Saturation 99.0 H ABG O2 Content 16.9 ABG Base Excess 3.6 H ABG Hemoglobin 12.3 ABG Carboxyhemoglobin 1.6 H POC ABG HHb (Measured) 1.0 ABG Methemoglobin 0.7 ABG O2 Capacity 17.1 Hgb O2 Saturation 96.6 FiO2 100.0 Sodium Potassium Chloride Carbon Dioxide Anion Gap BUN Creatinine Est GFR ( Amer) Est GFR (Non-Af Amer) Random Glucose Calcium Total Bilirubin AST ALT Alkaline Phosphatase Lactate Dehydrogenase Total Creatine Kinase Troponin I NT-Pro-B Natriuret Pep Total Protein Albumin Globulin Albumin/Globulin Ratio Influenza Typ A,B (EIA) Negative for flu a/b 06/19/18 08:30 WBC RBC Hgb Hct MCV MCH MCHC RDW Plt Count MPV Gran % Lymph % (Auto) [place] % (Auto) Eos % (Auto) Baso % (Auto) Gran # Lymph # (Auto) [place] # (Auto) Eos # (Auto) Baso # (Auto) PT INR APTT pCO2 pO2 HCO3 ABG pH ABG Total CO2 ABG O2 Saturation ABG O2 Content ABG Base Excess ABG Hemoglobin ABG Carboxyhemoglobin POC ABG HHb (Measured) ABG Methemoglobin ABG O2 Capacity Hgb O2 Saturation FiO2 Sodium 145 Potassium 3.0 L Chloride 106 Carbon Dioxide 33 Anion Gap 9 L BUN 24 H Creatinine 1.4 H Est GFR ( Amer) 48 Est GFR (Non-Af Amer) 40 Random Glucose 95 Calcium 8.0 L Total Bilirubin 0.2 AST 33 ALT 36 Alkaline Phosphatase 122 Lactate Dehydrogenase Total Creatine Kinase Troponin I NT-Pro-B Natriuret Pep Total Protein 6.4 Albumin 3.0 Globulin 3.4 Albumin/Globulin Ratio 0.9 L Influenza Typ A,B (EIA) Assessment & Plan - Assessment and Plan (Free Text) Plan: Community acquired pneumonia CHF exacerbation MAIKOL Hx of Adrenal insufficiency Hx of Ashley glabrata fungemia Hx of A-fib on Coumadin Hx of CHF with EF 15% Hx of AICD Hx of SLE Plan: Patient currently on BIPAP Chest x-ray reviewed, demonstrates b/l lower lobe infiltrates Patient received Vancomycin, Cefepime, and Doxycycline in ED. Will stop Vancomycin in the setting of MAIKOL Will obtain Vanco level Will continue Cefepime Azithromycin added by primary team Will start Mycafungin Procalcitonin elevated Influenza and Mycoplasma negative Strep pneumo pending Abeba, PGY-3 <Luis Metz - Last Filed: 06/19/18 17:48> Meds - Medications Medications: Current Medications Amiodarone HCl (Cordarone) 200 mg PO DAILY [facility] Last Admin: 06/19/18 14:34 Dose: 200 mg Benzocaine/Menthol (Cepacol Sore Throat) 1 amber MT Q2H PRN PRN Reason: Sore Throat Famotidine (Pepcid) 20 mg PO BID ANA LILIA Folic Acid (Folic Acid) 1 mg PO DAILY ANA LILIA Furosemide (Lasix) 40 mg IV Q8H [facility] Last Admin: 06/19/18 12:50 Dose: 40 mg Guaifenesin/Dextromethorphan (Robitussin Dm) 5 ml PO Q4H PRN PRN Reason: Cough Last Admin: 06/19/18 17:13 Dose: 5 ml Hydrocortisone Sodium Succinate (Solu-Cortef) 50 mg IVP Q8 [facility] Last Admin: 06/19/18 14:35 Dose: 50 mg Cefepime HCl (Maxipime 2gm) 2 gm in 100 mls @ 100 mls/hr IVPB Q12 ANA LILIA; Protocol Stop: 06/24/18 10:01 Last Admin: 06/19/18 09:52 Dose: 100 mls/hr Milrinone Lactate/Dextrose (Primacor 20mg/100ml D5w) 100 mls @ 9.731 mls/hr IV .[id number] PRN; Protocol PRN Reason: TITRATE PER MD ORDER NOREPINEPHRINE BIT/0.9 % NACL (Levophed 4 Mg/ 250 Ml Ns Premixed) 4 mg in 250 mls @ 15 mls/hr IV .[id number] PRN; Protocol PRN Reason: titrate for SBP>95 Azithromycin (Zithromax 500mg In Ns) 500 mg in 250 mls @ 167 mls/hr IVPB DAILY ANA LILIA; Protocol Micafungin Sodium 100 mg/ (Sodium Chloride) 100 mls @ 100 mls/hr IV DAILY ANA LILIA; Protocol Stop: 06/27/18 10:01 Lisinopril (Zestril) 2.5 mg PO DAILY [facility] Oxycodone/Acetaminophen (Percocet 10/325 Mg Tab) 1 tab PO BID PRN PRN Reason: Pain, moderate (4-7) Last Admin: 06/19/18 15:00 Dose: 1 tab Pantoprazole Sodium (Protonix Ec Tab) 40 mg PO 0600 [facility] Results - Vital Signs Recent Vital Signs: Last Vital Signs Temp 97.6 F 06/19/18 07:11 Pulse 90 06/19/18 15:20 Resp 27 H 06/19/18 15:20 BP 96/59 L 06/19/18 15:18 Pulse Ox 98 06/19/18 15:20 - Labs Result Diagrams: 06/19/18 08:30 06/19/18 08:30 Labs: Laboratory Results - last 24 hr 06/19/18 06/19/18 06/19/18 03:55 03:55 03:55 WBC 16.7 H D RBC 5.18 Hgb 12.5 D Hct 44.2 MCV 85.3 MCH 24.1 L MCHC 28.3 L RDW 17.6 H Plt Count 265 MPV 11.2 H Gran % Lymph % (Auto) [place] % (Auto) Eos % (Auto) Baso % (Auto) Gran # Lymph # (Auto) [place] # (Auto) Eos # (Auto) Baso # (Auto) PT 41.1 H INR 3.51 H* APTT 45.5 H pCO2 pO2 HCO3 ABG pH ABG Total CO2 ABG O2 Saturation ABG O2 Content ABG Base Excess ABG Hemoglobin ABG Carboxyhemoglobin POC ABG HHb (Measured) ABG Methemoglobin ABG O2 Capacity Hgb O2 Saturation FiO2 Sodium 143 Potassium 3.9 Chloride 103 Carbon Dioxide 30 Anion Gap 14 BUN 19 Creatinine 1.1 Est GFR ( Amer) > 60 Est GFR (Non-Af Amer) 53 Random Glucose 239 H Calcium 8.6 Total Bilirubin 0.5 AST 35 ALT 29 Alkaline Phosphatase 155 H D Lactate Dehydrogenase 773 H Total Creatine Kinase 30 L Troponin I 0.05 D NT-Pro-B Natriuret Pep 65559 H Total Protein 7.8 Albumin 3.9 Globulin 3.9 Albumin/Globulin Ratio 1.0 L Procalcitonin Influenza Typ A,B (EIA) Mycoplasma pneumon IgM 06/19/18 06/19/18 06/19/18 04:06 07:40 08:30 WBC RBC Hgb Hct MCV MCH MCHC RDW Plt Count MPV Gran % Lymph % (Auto) [place] % (Auto) Eos % (Auto) Baso % (Auto) Gran # Lymph # (Auto) [place] # (Auto) Eos # (Auto) Baso # (Auto) PT INR APTT pCO2 55 H pO2 120.0 H HCO3 30.4 H ABG pH 7.35 ABG Total CO2 32.1 H ABG O2 Saturation 99.0 H ABG O2 Content 16.9 ABG Base Excess 3.6 H ABG Hemoglobin 12.3 ABG Carboxyhemoglobin 1.6 H POC ABG HHb (Measured) 1.0 ABG Methemoglobin 0.7 ABG O2 Capacity 17.1 Hgb O2 Saturation 96.6 FiO2 100.0 Sodium Potassium Chloride Carbon Dioxide Anion Gap BUN Creatinine Est GFR ( Amer) Est GFR (Non-Af Amer) Random Glucose Calcium Total Bilirubin AST ALT Alkaline Phosphatase Lactate Dehydrogenase Total Creatine Kinase Troponin I NT-Pro-B Natriuret Pep Total Protein Albumin Globulin Albumin/Globulin Ratio Procalcitonin Influenza Typ A,B (EIA) Negative for flu a/b Mycoplasma pneumon IgM Negative 06/19/18 06/19/18 06/19/18 08:30 08:30 08:30 WBC 12.9 H D RBC 4.48 Hgb 10.6 L Hct 37.6 MCV 83.9 MCH 23.7 L MCHC 28.2 L RDW 17.5 H Plt Count 190 MPV 10.4 Gran % 79.9 H Lymph % (Auto) 13.0 L [place] % (Auto) 6.7 H Eos % (Auto) 0.2 L Baso % (Auto) 0.2 Gran # 10.29 H Lymph # (Auto) 1.7 [place] # (Auto) 0.9 H Eos # (Auto) 0.0 Baso # (Auto) 0.02 PT INR APTT pCO2 pO2 HCO3 ABG pH ABG Total CO2 ABG O2 Saturation ABG O2 Content ABG Base Excess ABG Hemoglobin ABG Carboxyhemoglobin POC ABG HHb (Measured) ABG Methemoglobin ABG O2 Capacity Hgb O2 Saturation FiO2 Sodium 145 Potassium 3.0 L Chloride 106 Carbon Dioxide 33 Anion Gap 9 L BUN 24 H Creatinine 1.4 H Est GFR ( Amer) 48 Est GFR (Non-Af Amer) 40 Random Glucose 95 Calcium 8.0 L Total Bilirubin 0.2 AST 33 ALT 36 Alkaline Phosphatase 122 Lactate Dehydrogenase Total Creatine Kinase Troponin I NT-Pro-B Natriuret Pep Total Protein 6.4 Albumin 3.0 Globulin 3.4 Albumin/Globulin Ratio 0.9 L Procalcitonin 40.61 H Influenza Typ A,B (EIA) Mycoplasma pneumon IgM Assessment & Plan - Assessment and Plan (Free Text) Plan: Infectious diseases Attending Physician Attestation Patient seen and examined, discussed with hospital medical assistant. I have reviewed the patient's history of present illness, past medical, social, personal and family histories, pertinent physical exam findings, course so far in this hospital admission, pertinent laboratory and imaging results. I agree with the above findings, assessment and plan. In addition, gave a dose of IV vancomycin and started Merrem and MYcamine for patient with SIRS with probable cardiogenic shock with acute on chronic CHF, R/O line-related sepsis. Follow up blood cx. Overall prognosis is poor.
[2018-06-19] MEDS ORDERED: Micafungin 100 MG in Sodium Chloride 0.9% 100 ML IV SCH (11:30)
[2018-06-19] MEDS ORDERED: Potassium Chloride 20 mEq ER Tab PO ONE ×2 (12:09→17:00)
--- NOTE | 2018-06-19 12:38 | CON ---
DATE: 06/19/2018 REASON FOR CONSULTATION: Hypotension, cardiomyopathy, home milrinone admitted with severe hypotension, shortness of breath, congestive heart failure, acute decompensated congestive heart failure, rule out septic shock and rule out cardiogenic shock. BRIEF CLINICAL HISTORY: This is a 52-year-old female with past medical history of congestive heart failure, non-ischemic cardiomyopathy ejection fraction 15% , S/p AICD and SLE, adrenal insufficiency, AFib on Coumadin, CVA with mild residual weakness, anxiety disorder, depression before present to the hospital with progressively worsening shortness of breath. The patient is on BiPAP at home and the patient is on milrinone. In the ER, the patient dropped blood pressure 70, moved to ICU. The patient seen in the ICU, started on IV Levophed, blood pressure increased to 120 and then started low dose of Primacor and IV Lasix given. The patient is on BiPAP, denies any chest pain but came in with a shortness of breath. Denies any chest pain. PAST MEDICAL HISTORY: Significant for SLE; adrenal insufficiency, on a steroid; history of congestive heart failure, nonischemic cardiomyopathy; history of severely decreased LV function, ejection fraction 15% to 20%, status post AICD; recently generator changed because of endocarditis, on heart transplant list at the [facility]; history of bilateral PE and anxiety disorder. Multiple admissions in the [facility]. Recently, discharged from [facility]. Being followed by Dr. Kahn at a [facility]. History of ASD. History of PFO. History of on Coumadin. History of CVA. PREVIOUS CARDIAC WORKUP: The patient has most recently echocardiography done on 03/06/2018 that revealed ejection fraction 13% to 15%, moderate LV diastolic dysfunction, right ventricle is in normal size, left atrium is mildly dilated, right atrium is in normal size, normal aortic valve structure, normal mitral valve structure, moderate mitral regurgitation, mild tricuspid regurgitation, RV systolic pressure 33, dated 03/15/2018. SOCIAL HISTORY: Denies any history of alcohol abuse. PAST SURGICAL HISTORY: Significant for bilateral breast biopsy, hematoma evacuation, status post AICD, status post removal of AICD for Endocarditis, status post re-AICD was placed, biventricular AICD and many years ago. FAMILY HISTORY: Significant for mother had esophageal cancer. CURRENT MEDICATIONS: The patient at home was taking milrinone continuous infusion oxycodone, Coumadin, nystatin, metoprolol succinate 12.5 mg daily, Zestril 2.5 mg daily, folic acid, famotidine, amiodarone 200 mg daily, and Xanax. REVIEW OF SYSTEMS: As per HPI. PHYSICAL EXAMINATION: GENERAL: Height of the patient 5 feet 3 inches. Weight of the patient 190 pound. Body mass index 33.8 kg/m2. VITAL SIGNS: Rest of the vitals temperature afebrile, heart rate 85, and blood pressure 70 on admission, now it is 129/80. HEENT: PERRLA intact. NECK: Supple. No carotid bruits or thyromegaly. CHEST: Clear to auscultation. HEART: S1 and S2, regular. ABDOMEN: Soft. EXTREMITIES: Clubbing and cyanosis negative. LABORATORY DATA: Blood workup as follows; WBC 12.9, hemoglobin 10.6, hematocrit 37.6 and platelet count 190. Chemistry shows sodium 145, potassium 3, chloride 106, carbon dioxide 33, anion gap of 9, BUN 24, creatinine 1.4, BNP on admission 11,000, total protein 6.4, albumin 3, albumin-globulin ratio 0.9. EKG shows sinus tachycardia, low voltage, no acute STT changes noted. Chest x-ray reviewed that shows poor inspiratory effort, mild congestion noted, early pulmonary edema. AICD left side of the chest noted. 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, history of replacement of automatic implantable cardioverter defibrillator, history of non-ischemic cardiomyopathy, history of multiple admissions with decompensated congestive heart failure, history of lying sepsis in the past, history of cerebrovascular accident, history of paten foramen ovale, history of on Coumadin, history of anxiety disorder, history of systemic lupus erythematosus, history of severely decreased left ventricular function, history of patent foramen ovale and history of automatic implantable cardioverter defibrillator placement, removal for automatic implantable cardioverter defibrillator and then implanted on the left side of the chest, history of cerebrovascular accident and atrial septal defect, admitted with hypotension at home milrinone with elevated WBC count and possible sepsis septic shock. RECOMMENDATIONS: We will start low dose of Levophed, titrate if the blood pressure goes above 100. We will start low dose of milrinone and keep on diuresed as blood pressure is tolerated. We will hold p.o. medications for now. Once blood pressure stabilizes, we will start low dose of Coreg and FELIZ inhibitor. Continue anticoagulation. Overall, the patient's condition is critical and long-term prognosis guarded. We will follow with you. Thank you Dr. Fernandes for providing us the opportunity in taking care of the patient, Karan Brown. Roberto Jones MD MTDD
--- NOTE | 2018-06-19 13:33 | CP.CCUPN ---
<Raúl Pearl - Last Filed: 06/19/18 13:33> CCU Subjective - Physician Review Subjective (Free Text): Raúl Pearl Internal Medicine Resident- Progress Note on Behalf of Critical Care Team Subjective: Patient seen and examined at bedside. No acute events since admission. Patient states SOB has improved relative to baseline. Denies fever, chills, chest pain, abdominal pain, nausea, vomiting. 12 point ROS negative except as indicated in HPI Physical Examination: - Constitutional Appears: no acute distress - Head Exam Head Exam: ATRAUMATIC, NORMAL INSPECTION, NORMOCEPHALIC - Eye Exam Eye Exam: PERRL - ENT Exam ENT Exam: Mucous Membranes Moist - Respiratory Exam Respiratory Exam: rales bilateral lower lobes - Cardiovascular Exam Cardiovascular Exam: RRR, REGULAR RHYTHM - GI/Abdominal Exam GI & Abdominal Exam: Normal Bowel Sounds, Soft. absent: Tenderness - Extremities Exam Extremities exam: no clubbing, no cyanosis, pedal edema (+1 pitting edema bilaterally) - Neurological Exam Neurological exam: AAO x 3, responds to verbal stimuli, follows commands, moves extremities past midline - Skin Skin Exam: Dry, Intact Assessment and Plan: Patient is a 52 year old female with a past medical history significant fornon- ischemic cardiomyopathy, CHF (EF: 15%) s/p AICD, SLE, Adrenal Insufficiency, PFO, ASD, Atrial Fibrillation on Warfarin, CVA with residual right sided weakness, anxiety and depression who was admitted for progressive SOB. Patient was found to have acute exacerbation of CHF with alveolar infiltrates in the lower lobes. Patient was transferred to ICU for further management of respiratory distress and persistent hypotension. Cardiovascular Cardiogenic Shock 2/2 Acutely Decompensated Sytolic CHF, Ischemic Cardiomyopathy - 06/19/2017 Chest X-Ray - Alveolar infiltrates are seen in both lower lobes. The upper lobes are clear. There is a new right IJ line that terminates in the SVC with no pneumothorax. - continue Milrinone gtt 0.375 mcg/kg/min - continue weaning levophed, currently at 4mcg/min, maintain MAP > 65 - continue lasix 40mg IV q8h - Strict I/O's and Daily Weight - Cardiology consulted (Dr. Jones), all recommendations appreciated Atrial Fibrillation, Supratherapeutic INR - continue home amiodarone 200mg PO daily - hold home wafarin due to elevated INR Infectious Disease SIRs Criteria Met - 06/19/2017 Chest X-Ray - Alveolar infiltrates are seen in both lower lobes. The upper lobes are clear. There is a new right IJ line that terminates in the SVC with no pneumothorax.on - UA showing no signs of UTI - continue empiric therapy for HCAP-Cefepime (day 1) and azithromycin (day 1) - Strep. Pneumo., Legionella, Mycoplasma, Influenza, khan cultures and procal ordered and pending - ID consulted (Dr. Metz)- appreciate recommendations GI GI Prophylaxis: - continue Protonix 40mg PO daily Renal: MAIKOL - likely prerenal secondary to shock - continue pressor support - monitor closely via CMP - hold home lisinopril 2.5mg PO daily Endocrinology: Adrenal Insufficiency - continue hydrocortisone 50mg q8h - maintain euglycemia Heme Normocytic Anemia - Hgb stable at approximate baseline ~10 - monitor closely via AM CBC DVT Prophylaxis: - continue SCD's Patient seen, case reviewed with, and plan approved by attending physician, Dr. Chapman. 06/19/18 13:38 CCU Objective - Vital Signs / Intake & Output Vital Signs (Last 4 hours): Vital Signs Pulse Resp BP Pulse Ox 06/19/18 12:20 85 25 H 96 06/19/18 12:10 86 26 H 97 06/19/18 12:00 83 22 97 06/19/18 11:50 88 25 H 97 06/19/18 11:42 88 26 H 98/58 L 99 06/19/18 11:40 88 25 H 98 06/19/18 11:30 85 24 99 06/19/18 11:20 84 24 98 06/19/18 11:11 85 25 H 98/55 L 98 06/19/18 11:10 85 27 H 97 06/19/18 11:00 87 25 H 97 06/19/18 10:50 87 25 H 96 06/19/18 10:42 87 25 H 85/57 L 96 06/19/18 10:40 83 27 H 96 06/19/18 10:30 85 25 H 95 06/19/18 10:20 83 27 H 93/60 L 96 06/19/18 10:12 85 24 83/56 L 98 06/19/18 10:10 85 25 H 97 06/19/18 10:00 84 22 100 06/19/18 09:50 81 20 98 06/19/18 09:42 82 25 H 100/58 L 98 06/19/18 09:40 82 25 H 97 06/19/18 09:30 86 35 H 91 L 06/19/18 09:20 78 24 97 06/19/18 09:12 82 26 H 104/48 L 97 06/19/18 09:10 89 24 95 06/19/18 09:00 106 H 28 H 95 Intake and Output (Last 8hrs): Intake & Output 06/18/18 06/19/18 06/19/18 22:59 06:59 14:59 Weight 184 lb 6.4 oz 190 lb 11.2 oz - Physical Exam Head: Positive for: Atraumatic, Normocephalic Pupils: Positive for: PERRL Extroacular Muscles: Positive for: EOMI Conjunctiva: Positive for: Normal Mouth: Positive for: Moist Mucous Membranes Neck: Positive for: Normal Range of Motion Respiratory/Chest: Positive for: Respiratory Distress (Mild respiratory distress), Rhonchi (Rhonchi bilaterally). Negative for: Accessory Muscle Use Cardiovascular: Positive for: Regular Rate and Rhythm, Normal S1, S2. Negative for: Murmurs Abdomen: Negative for: Tenderness, Distention, Peritoneal Signs Back: Positive for: Normal Inspection Upper Extremity: Positive for: Normal Inspection. Negative for: Cyanosis, Edema Lower Extremity: Positive for: Normal Inspection. Negative for: Edema Neurological: Positive for: GCS=15, CN II-XII Intact, Speech Normal Skin: Positive for: Warm, Dry, Normal Color. Negative for: Rashes Psychiatric: Positive for: Alert, Oriented x 3, Normal Insight, Normal Concentration - Medications Active Medications: Active Medications Generic Name Dose Route Start Last Admin Trade Name Freq PRN Reason Stop Dose Admin Amiodarone HCl 200 mg 06/19/18 12:15 Cordarone PO DAILY ANA LILIA Famotidine 20 mg 06/19/18 18:00 Pepcid PO BID ANA LILIA Folic Acid 1 mg 06/20/18 10:00 Folic Acid PO DAILY ANA LILIA Furosemide 40 mg 06/19/18 12:15 Lasix IV Q8H ANA LILIA Hydrocortisone Sodium Succinate 50 mg 06/19/18 10:00 06/19/18 10:24 Solu-Cortef IVP 50 mg Q8 ANA LILIA Administration Cefepime HCl 2 gm in 100 mls @ 100 mls/hr 06/19/18 10:00 06/19/18 09:52 Maxipime 2gm IVPB 06/24/18 10:01 100 mls/hr Q12 ANA LILIA Administration Protocol Milrinone Lactate/Dextrose 100 mls @ 9.731 mls/hr 06/19/18 09:54 Primacor 20mg/100ml D5w IV .[id number] PRN TITRATE PER MD ORDER Protocol 0.375 MCG/KG/MIN Potassium Chloride 20 meq in 100 mls @ 50 mls/hr 06/19/18 10:00 Potassium Chloride 20 Meq/100 Ml IVPB 06/19/18 13:59 Q2H ANA LILIA NOREPINEPHRINE BIT/0.9 % NACL 4 mg in 250 mls @ 15 mls/hr 06/19/18 12:08 Levophed 4 Mg/ 250 Ml Ns Premixed IV .[id number] PRN titrate for SBP>95 Protocol 4 MCG/MIN Azithromycin 500 mg in 250 mls @ 167 mls/hr 06/20/18 10:00 Zithromax 500mg In Ns IVPB DAILY ANA LILIA Protocol Lisinopril 2.5 mg 06/20/18 10:00 Zestril PO DAILY ANA LILIA Oxycodone/Acetaminophen 1 tab 06/19/18 12:04 Percocet 10/325 Mg Tab PO BID PRN Pain, moderate (4-7) Pantoprazole Sodium 40 mg 06/20/18 06:00 Protonix Ec Tab PO 0600 ANA LILIA Potassium Chloride 40 meq 06/19/18 17:00 K-Dur 20 Meq Er Tab PO 06/19/18 17:01 ONCE ONE - Patient Studies Lab Studies: Lab Studies 06/19/18 06/19/18 06/19/18 Range/Units 08:30 08:30 07:40 WBC 12.9 H D (4.5-11.0) 10^3/uL RBC 4.48 (3.5-6.1) 10^6/uL Hgb 10.6 L (12.0-16.0) g/dL Hct 37.6 (36.0-48.0) % MCV 83.9 (80.0-105.0) fl MCH 23.7 L (25.0-35.0) pg MCHC 28.2 L (31.0-37.0) g/dl RDW 17.5 H (11.5-14.5) % Plt Count 190 (120.0-450.0) 10^3/uL MPV 10.4 (7.0-11.0) fl Gran % 79.9 H (50.0-68.0) % Lymph % (Auto) 13.0 L (22.0-35.0) % [place] % (Auto) 6.7 H (1.0-6.0) % Eos % (Auto) 0.2 L (1.5-5.0) % Baso % (Auto) 0.2 (0.0-3.0) % Gran # 10.29 H (1.4-6.5) Lymph # (Auto) 1.7 (1.2-3.4) [place] # (Auto) 0.9 H (0.1-0.6) Eos # (Auto) 0.0 (0.0-0.7) Baso # (Auto) 0.02 (0.0-2.0) K/mm3 PT (9.4-12.5) SECONDS INR APTT (25.1-36.5) Seconds pCO2 (35-45) mm/Hg pO2 (80-100) mm/Hg HCO3 (21-28) mmol/L ABG pH (7.35-7.45) ABG Total CO2 (22-28) mmol.L ABG O2 Saturation (95-98) % ABG O2 Content (15-23) ML/dl ABG Base Excess (-2.0-3.0) mmol/L ABG Hemoglobin (11.7-17.4) g/dL ABG Carboxyhemoglobin (0.5-1.5) % POC ABG HHb (Measured) (0-5) % ABG Methemoglobin (0.0-3.0) % ABG O2 Capacity (16-24) mL/dl Hgb O2 Saturation (95.0-98.0) % FiO2 % Sodium 145 (132-148) mmol/L Potassium 3.0 L (3.6-5.0) mmol/L Chloride 106 (98-107) mmol/L Carbon Dioxide 33 (21-33) mmol/L Anion Gap 9 L (10-20) BUN 24 H (7-21) mg/dL Creatinine 1.4 H (0.7-1.2) mg/dl Est GFR ( Amer) 48 Est GFR (Non-Af Amer) 40 Random Glucose 95 (70-110) mg/dL Calcium 8.0 L (8.4-10.5) mg/dL Total Bilirubin 0.2 (0.2-1.3) mg/dL AST 33 (14-36) U/L ALT 36 (7-56) U/L Alkaline Phosphatase 122 (38-126) U/L Lactate Dehydrogenase (333-699) U/L Total Creatine Kinase (35-230) U/L Troponin I ng/mL NT-Pro-B Natriuret Pep (0-450) pg/mL Total Protein 6.4 (5.8-8.3) g/dL Albumin 3.0 (3.0-4.8) g/dL Globulin 3.4 gm/dL Albumin/Globulin Ratio 0.9 L (1.1-1.8) Influenza Typ A,B (EIA) Negative for flu a/b (NEGATIVE) 06/19/18 06/19/18 06/19/18 Range/Units 04:06 03:55 03:55 WBC 16.7 H D (4.5-11.0) 10^3/uL RBC 5.18 (3.5-6.1) 10^6/uL Hgb 12.5 D (12.0-16.0) g/dL Hct 44.2 (36.0-48.0) % MCV 85.3 (80.0-105.0) fl MCH 24.1 L (25.0-35.0) pg MCHC 28.3 L (31.0-37.0) g/dl RDW 17.6 H (11.5-14.5) % Plt Count 265 (120.0-450.0) 10^3/uL MPV 11.2 H (7.0-11.0) fl Gran % (50.0-68.0) % Lymph % (Auto) (22.0-35.0) % [place] % (Auto) (1.0-6.0) % Eos % (Auto) (1.5-5.0) % Baso % (Auto) (0.0-3.0) % Gran # (1.4-6.5) Lymph # (Auto) (1.2-3.4) [place] # (Auto) (0.1-0.6) Eos # (Auto) (0.0-0.7) Baso # (Auto) (0.0-2.0) K/mm3 PT (9.4-12.5) SECONDS INR APTT (25.1-36.5) Seconds pCO2 55 H (35-45) mm/Hg pO2 120.0 H (80-100) mm/Hg HCO3 30.4 H (21-28) mmol/L ABG pH 7.35 (7.35-7.45) ABG Total CO2 32.1 H (22-28) mmol.L ABG O2 Saturation 99.0 H (95-98) % ABG O2 Content 16.9 (15-23) ML/dl ABG Base Excess 3.6 H (-2.0-3.0) mmol/L ABG Hemoglobin 12.3 (11.7-17.4) g/dL ABG Carboxyhemoglobin 1.6 H (0.5-1.5) % POC ABG HHb (Measured) 1.0 (0-5) % ABG Methemoglobin 0.7 (0.0-3.0) % ABG O2 Capacity 17.1 (16-24) mL/dl Hgb O2 Saturation 96.6 (95.0-98.0) % FiO2 100.0 % Sodium 143 (132-148) mmol/L Potassium 3.9 (3.6-5.0) mmol/L Chloride 103 (98-107) mmol/L Carbon Dioxide 30 (21-33) mmol/L Anion Gap 14 (10-20) BUN 19 (7-21) mg/dL Creatinine 1.1 (0.7-1.2) mg/dl Est GFR ( Amer) > 60 Est GFR (Non-Af Amer) 53 Random Glucose 239 H (70-110) mg/dL Calcium 8.6 (8.4-10.5) mg/dL Total Bilirubin 0.5 (0.2-1.3) mg/dL AST 35 (14-36) U/L ALT 29 (7-56) U/L Alkaline Phosphatase 155 H D (38-126) U/L Lactate Dehydrogenase 773 H (333-699) U/L Total Creatine Kinase 30 L (35-230) U/L Troponin I 0.05 D ng/mL NT-Pro-B Natriuret Pep 25552 H (0-450) pg/mL Total Protein 7.8 (5.8-8.3) g/dL Albumin 3.9 (3.0-4.8) g/dL Globulin 3.9 gm/dL Albumin/Globulin Ratio 1.0 L (1.1-1.8) Influenza Typ A,B (EIA) (NEGATIVE) 06/19/18 Range/Units 03:55 WBC (4.5-11.0) 10^3/uL RBC (3.5-6.1) 10^6/uL Hgb (12.0-16.0) g/dL Hct (36.0-48.0) % MCV (80.0-105.0) fl MCH (25.0-35.0) pg MCHC (31.0-37.0) g/dl RDW (11.5-14.5) % Plt Count (120.0-450.0) 10^3/uL MPV (7.0-11.0) fl Gran % (50.0-68.0) % Lymph % (Auto) (22.0-35.0) % [place] % (Auto) (1.0-6.0) % Eos % (Auto) (1.5-5.0) % Baso % (Auto) (0.0-3.0) % Gran # (1.4-6.5) Lymph # (Auto) (1.2-3.4) [place] # (Auto) (0.1-0.6) Eos # (Auto) (0.0-0.7) Baso # (Auto) (0.0-2.0) K/mm3 PT 41.1 H (9.4-12.5) SECONDS INR 3.51 H* APTT 45.5 H (25.1-36.5) Seconds pCO2 (35-45) mm/Hg pO2 (80-100) mm/Hg HCO3 (21-28) mmol/L ABG pH (7.35-7.45) ABG Total CO2 (22-28) mmol.L ABG O2 Saturation (95-98) % ABG O2 Content (15-23) ML/dl ABG Base Excess (-2.0-3.0) mmol/L ABG Hemoglobin (11.7-17.4) g/dL ABG Carboxyhemoglobin (0.5-1.5) % POC ABG HHb (Measured) (0-5) % ABG Methemoglobin (0.0-3.0) % ABG O2 Capacity (16-24) mL/dl Hgb O2 Saturation (95.0-98.0) % FiO2 % Sodium (132-148) mmol/L Potassium (3.6-5.0) mmol/L Chloride (98-107) mmol/L Carbon Dioxide (21-33) mmol/L Anion Gap (10-20) BUN (7-21) mg/dL Creatinine (0.7-1.2) mg/dl Est GFR ( Amer) Est GFR (Non-Af Amer) Random Glucose (70-110) mg/dL Calcium (8.4-10.5) mg/dL Total Bilirubin (0.2-1.3) mg/dL AST (14-36) U/L ALT (7-56) U/L Alkaline Phosphatase (38-126) U/L Lactate Dehydrogenase (333-699) U/L Total Creatine Kinase (35-230) U/L Troponin I ng/mL NT-Pro-B Natriuret Pep (0-450) pg/mL Total Protein (5.8-8.3) g/dL Albumin (3.0-4.8) g/dL Globulin gm/dL Albumin/Globulin Ratio (1.1-1.8) Influenza Typ A,B (EIA) (NEGATIVE) Laboratory Results - last 24 hr 06/19/18 06/19/18 06/19/18 03:55 03:55 03:55 WBC 16.7 H D RBC 5.18 Hgb 12.5 D Hct 44.2 MCV 85.3 MCH 24.1 L MCHC 28.3 L RDW 17.6 H Plt Count 265 MPV 11.2 H Gran % Lymph % (Auto) [place] % (Auto) Eos % (Auto) Baso % (Auto) Gran # Lymph # (Auto) [place] # (Auto) Eos # (Auto) Baso # (Auto) PT 41.1 H INR 3.51 H* APTT 45.5 H pCO2 pO2 HCO3 ABG pH ABG Total CO2 ABG O2 Saturation ABG O2 Content ABG Base Excess ABG Hemoglobin ABG Carboxyhemoglobin POC ABG HHb (Measured) ABG Methemoglobin ABG O2 Capacity Hgb O2 Saturation FiO2 Sodium 143 Potassium 3.9 Chloride 103 Carbon Dioxide 30 Anion Gap 14 BUN 19 Creatinine 1.1 Est GFR ( Amer) > 60 Est GFR (Non-Af Amer) 53 Random Glucose 239 H Calcium 8.6 Total Bilirubin 0.5 AST 35 ALT 29 Alkaline Phosphatase 155 H D Lactate Dehydrogenase 773 H Total Creatine Kinase 30 L Troponin I 0.05 D NT-Pro-B Natriuret Pep 84108 H Total Protein 7.8 Albumin 3.9 Globulin 3.9 Albumin/Globulin Ratio 1.0 L Influenza Typ A,B (EIA) 06/19/18 06/19/18 06/19/18 04:06 07:40 08:30 WBC 12.9 H D RBC 4.48 Hgb 10.6 L Hct 37.6 MCV 83.9 MCH 23.7 L MCHC 28.2 L RDW 17.5 H Plt Count 190 MPV 10.4 Gran % 79.9 H Lymph % (Auto) 13.0 L [place] % (Auto) 6.7 H Eos % (Auto) 0.2 L Baso % (Auto) 0.2 Gran # 10.29 H Lymph # (Auto) 1.7 [place] # (Auto) 0.9 H Eos # (Auto) 0.0 Baso # (Auto) 0.02 PT INR APTT pCO2 55 H pO2 120.0 H HCO3 30.4 H ABG pH 7.35 ABG Total CO2 32.1 H ABG O2 Saturation 99.0 H ABG O2 Content 16.9 ABG Base Excess 3.6 H ABG Hemoglobin 12.3 ABG Carboxyhemoglobin 1.6 H POC ABG HHb (Measured) 1.0 ABG Methemoglobin 0.7 ABG O2 Capacity 17.1 Hgb O2 Saturation 96.6 FiO2 100.0 Sodium Potassium Chloride Carbon Dioxide Anion Gap BUN Creatinine Est GFR ( Amer) Est GFR (Non-Af Amer) Random Glucose Calcium Total Bilirubin AST ALT Alkaline Phosphatase Lactate Dehydrogenase Total Creatine Kinase Troponin I NT-Pro-B Natriuret Pep Total Protein Albumin Globulin Albumin/Globulin Ratio Influenza Typ A,B (EIA) Negative for flu a/b 06/19/18 08:30 WBC RBC Hgb Hct MCV MCH MCHC RDW Plt Count MPV Gran % Lymph % (Auto) [place] % (Auto) Eos % (Auto) Baso % (Auto) Gran # Lymph # (Auto) [place] # (Auto) Eos # (Auto) Baso # (Auto) PT INR APTT pCO2 pO2 HCO3 ABG pH ABG Total CO2 ABG O2 Saturation ABG O2 Content ABG Base Excess ABG Hemoglobin ABG Carboxyhemoglobin POC ABG HHb (Measured) ABG Methemoglobin ABG O2 Capacity Hgb O2 Saturation FiO2 Sodium 145 Potassium 3.0 L Chloride 106 Carbon Dioxide 33 Anion Gap 9 L BUN 24 H Creatinine 1.4 H Est GFR ( Amer) 48 Est GFR (Non-Af Amer) 40 Random Glucose 95 Calcium 8.0 L Total Bilirubin 0.2 AST 33 ALT 36 Alkaline Phosphatase 122 Lactate Dehydrogenase Total Creatine Kinase Troponin I NT-Pro-B Natriuret Pep Total Protein 6.4 Albumin 3.0 Globulin 3.4 Albumin/Globulin Ratio 0.9 L Influenza Typ A,B (EIA) Radiology Impressions: Radiology Impressions Chest X-Ray 06/19/18 05:57 IMPRESSION: Alveolar infiltrates are seen in both lower lobes. The upper lobes are clear. There is a new right IJ line that terminates in the SVC with no pneumothorax. EKG/Cardiology Studies: Cardiology / EKG Studies 06/19/18 ELECTROCARDIOGRAM Stat Comment: Reason For Exam: sob Critical Care Progress Note - Nutrition Nutrition: Nutrition Category Date Time Status Heart Healthy Diet [DIET] Diets 06/19/18 Lunch Active <Zaid Chapman - Last Filed: 06/19/18 16:21> CCU Objective - Vital Signs / Intake & Output Vital Signs (Last 4 hours): Vital Signs Pulse Resp BP Pulse Ox 06/19/18 15:20 90 27 H 98 06/19/18 15:18 88 32 H 96/59 L 97 06/19/18 15:17 100/64 06/19/18 15:16 89 23 97 06/19/18 15:10 90 29 H 96 06/19/18 15:00 92 H 28 H 94 L 06/19/18 14:57 86 32 H 115/64 96 06/19/18 14:50 92 H 39 H 96 06/19/18 14:40 86 33 H 96 06/19/18 14:30 87 33 H 95 06/19/18 14:20 92 H 20 94 L 06/19/18 14:10 94 H 25 H 95 06/19/18 14:00 95 H 31 H 93 L 06/19/18 13:50 99 H 93 L 06/19/18 13:40 87 40 H 95 06/19/18 13:30 86 95 06/19/18 13:22 88 56 H 06/19/18 13:20 84 33 H 95 06/19/18 13:15 87 06/19/18 13:10 83 22 98 06/19/18 13:00 79 24 100 06/19/18 12:54 82 26 H 108/71 06/19/18 12:53 83 25 H 98 06/19/18 12:52 84 24 97/61 L 97 06/19/18 12:51 81 26 H 98/58 L 98 06/19/18 12:50 97/64 L 06/19/18 12:49 84 24 97 06/19/18 12:40 82 26 H 97 06/19/18 12:30 85 26 H 96 06/19/18 12:20 85 25 H 96 06/19/18 12:10 86 26 H 97 Intake and Output (Last 8hrs): Intake & Output 06/19/18 06/19/18 06/19/18 06:59 14:59 22:59 Weight 184 lb 6.4 oz 190 lb 11.2 oz - Medications Active Medications: Active Medications Generic Name Dose Route Start Last Admin Trade Name David PRN Reason Stop Dose Admin Amiodarone HCl 200 mg 06/19/18 12:15 06/19/18 14:34 Cordarone PO 200 mg DAILY ANA LILIA Administration Famotidine 20 mg 06/19/18 18:00 Pepcid PO BID ANAL ILIA Folic Acid 1 mg 06/20/18 10:00 Folic Acid PO DAILY ANA LILIA Furosemide 40 mg 06/19/18 12:15 06/19/18 12:50 Lasix IV 40 mg Q8H ANA LILIA Administration Hydrocortisone Sodium Succinate 50 mg 06/19/18 10:00 06/19/18 14:35 Solu-Cortef IVP 50 mg Q8 ANA LILIA Administration Cefepime HCl 2 gm in 100 mls @ 100 mls/hr 01/14/19 10:00 06/19/18 09:52 Maxipime 2gm IVPB 06/24/18 10:01 100 mls/hr Q12 ANA LILIA Administration Protocol Milrinone Lactate/Dextrose 100 mls @ 9.731 mls/hr 06/19/18 09:54 Primacor 20mg/100ml D5w IV .[id number] PRN TITRATE PER MD ORDER Protocol 0.375 MCG/KG/MIN NOREPINEPHRINE BIT/0.9 % NACL 4 mg in 250 mls @ 15 mls/hr 06/19/18 12:08 Levophed 4 Mg/ 250 Ml Ns Premixed IV .[id number] PRN titrate for SBP>95 Protocol 4 MCG/MIN Azithromycin 500 mg in 250 mls @ 167 mls/hr 06/20/18 10:00 Zithromax 500mg In Ns IVPB DAILY ANA LILIA Protocol Lisinopril 2.5 mg 06/20/18 10:00 Zestril PO DAILY ANA LILIA Oxycodone/Acetaminophen 1 tab 06/19/18 12:04 06/19/18 15:00 Percocet 10/325 Mg Tab PO 1 tab BID PRN Administration Pain, moderate (4-7) Pantoprazole Sodium 40 mg 06/20/18 06:00 Protonix Ec Tab PO 0600 [facility] Potassium Chloride 40 meq 06/19/18 17:00 K-Dur 20 Meq Er Tab PO 06/19/18 17:01 ONCE ONE - Patient Studies Lab Studies: Lab Studies 06/19/18 06/19/18 06/19/18 Range/Units 08:30 08:30 08:30 WBC 12.9 H D (4.5-11.0) 10^3/uL RBC 4.48 (3.5-6.1) 10^6/uL Hgb 10.6 L (12.0-16.0) g/dL Hct 37.6 (36.0-48.0) % MCV 83.9 (80.0-105.0) fl MCH 23.7 L (25.0-35.0) pg MCHC 28.2 L (31.0-37.0) g/dl RDW 17.5 H (11.5-14.5) % Plt Count 190 (120.0-450.0) 10^3/uL MPV 10.4 (7.0-11.0) fl Gran % 79.9 H (50.0-68.0) % Lymph % (Auto) 13.0 L (22.0-35.0) % [place] % (Auto) 6.7 H (1.0-6.0) % Eos % (Auto) 0.2 L (1.5-5.0) % Baso % (Auto) 0.2 (0.0-3.0) % Gran # 10.29 H (1.4-6.5) Lymph # (Auto) 1.7 (1.2-3.4) [place] # (Auto) 0.9 H (0.1-0.6) Eos # (Auto) 0.0 (0.0-0.7) Baso # (Auto) 0.02 (0.0-2.0) K/mm3 PT (9.4-12.5) SECONDS INR APTT (25.1-36.5) Seconds pCO2 (35-45) mm/Hg pO2 (80-100) mm/Hg HCO3 (21-28) mmol/L ABG pH (7.35-7.45) ABG Total CO2 (22-28) mmol.L ABG O2 Saturation (95-98) % ABG O2 Content (15-23) ML/dl ABG Base Excess (-2.0-3.0) mmol/L ABG Hemoglobin (11.7-17.4) g/dL ABG Carboxyhemoglobin (0.5-1.5) % POC ABG HHb (Measured) (0-5) % ABG Methemoglobin (0.0-3.0) % ABG O2 Capacity (16-24) mL/dl Hgb O2 Saturation (95.0-98.0) % FiO2 % Sodium 145 (132-148) mmol/L Potassium 3.0 L (3.6-5.0) mmol/L Chloride 106 (98-107) mmol/L Carbon Dioxide 33 (21-33) mmol/L Anion Gap 9 L (10-20) BUN 24 H (7-21) mg/dL Creatinine 1.4 H (0.7-1.2) mg/dl Est GFR ( Amer) 48 Est GFR (Non-Af Amer) 40 Random Glucose 95 (70-110) mg/dL Calcium 8.0 L (8.4-10.5) mg/dL Total Bilirubin 0.2 (0.2-1.3) mg/dL AST 33 (14-36) U/L ALT 36 (7-56) U/L Alkaline Phosphatase 122 (38-126) U/L Lactate Dehydrogenase (333-699) U/L Total Creatine Kinase (35-230) U/L Troponin I ng/mL NT-Pro-B Natriuret Pep (0-450) pg/mL Total Protein 6.4 (5.8-8.3) g/dL Albumin 3.0 (3.0-4.8) g/dL Globulin 3.4 gm/dL Albumin/Globulin Ratio 0.9 L (1.1-1.8) Procalcitonin 40.61 H (0.19-0.49) NG/ML Influenza Typ A,B (EIA) (NEGATIVE) Mycoplasma pneumon IgM (NEGATIVE) 06/19/18 06/19/18 06/19/18 Range/Units 08:30 07:40 04:06 WBC (4.5-11.0) 10^3/uL RBC (3.5-6.1) 10^6/uL Hgb (12.0-16.0) g/dL Hct (36.0-48.0) % MCV (80.0-105.0) fl MCH (25.0-35.0) pg MCHC (31.0-37.0) g/dl RDW (11.5-14.5) % Plt Count (120.0-450.0) 10^3/uL MPV (7.0-11.0) fl Gran % (50.0-68.0) % Lymph % (Auto) (22.0-35.0) % [place] % (Auto) (1.0-6.0) % Eos % (Auto) (1.5-5.0) % Baso % (Auto) (0.0-3.0) % Gran # (1.4-6.5) Lymph # (Auto) (1.2-3.4) [place] # (Auto) (0.1-0.6) Eos # (Auto) (0.0-0.7) Baso # (Auto) (0.0-2.0) K/mm3 PT (9.4-12.5) SECONDS INR APTT (25.1-36.5) Seconds pCO2 55 H (35-45) mm/Hg pO2 120.0 H (80-100) mm/Hg HCO3 30.4 H (21-28) mmol/L ABG pH 7.35 (7.35-7.45) ABG Total CO2 32.1 H (22-28) mmol.L ABG O2 Saturation 99.0 H (95-98) % ABG O2 Content 16.9 (15-23) ML/dl ABG Base Excess 3.6 H (-2.0-3.0) mmol/L ABG Hemoglobin 12.3 (11.7-17.4) g/dL ABG Carboxyhemoglobin 1.6 H (0.5-1.5) % POC ABG HHb (Measured) 1.0 (0-5) % ABG Methemoglobin 0.7 (0.0-3.0) % ABG O2 Capacity 17.1 (16-24) mL/dl Hgb O2 Saturation 96.6 (95.0-98.0) % FiO2 100.0 % Sodium (132-148) mmol/L Potassium (3.6-5.0) mmol/L Chloride (98-107) mmol/L Carbon Dioxide (21-33) mmol/L Anion Gap (10-20) BUN (7-21) mg/dL Creatinine (0.7-1.2) mg/dl Est GFR ( Amer) Est GFR (Non-Af Amer) Random Glucose (70-110) mg/dL Calcium (8.4-10.5) mg/dL Total Bilirubin (0.2-1.3) mg/dL AST (14-36) U/L ALT (7-56) U/L Alkaline Phosphatase (38-126) U/L Lactate Dehydrogenase (333-699) U/L Total Creatine Kinase (35-230) U/L Troponin I ng/mL NT-Pro-B Natriuret Pep (0-450) pg/mL Total Protein (5.8-8.3) g/dL Albumin (3.0-4.8) g/dL Globulin gm/dL Albumin/Globulin Ratio (1.1-1.8) Procalcitonin (0.19-0.49) NG/ML Influenza Typ A,B (EIA) Negative for flu a/b (NEGATIVE) Mycoplasma pneumon IgM Negative (NEGATIVE) 06/19/18 06/19/18 06/19/18 Range/Units 03:55 03:55 03:55 WBC 16.7 H D (4.5-11.0) 10^3/uL RBC 5.18 (3.5-6.1) 10^6/uL Hgb 12.5 D (12.0-16.0) g/dL Hct 44.2 (36.0-48.0) % MCV 85.3 (80.0-105.0) fl MCH 24.1 L (25.0-35.0) pg MCHC 28.3 L (31.0-37.0) g/dl RDW 17.6 H (11.5-14.5) % Plt Count 265 (120.0-450.0) 10^3/uL MPV 11.2 H (7.0-11.0) fl Gran % (50.0-68.0) % Lymph % (Auto) (22.0-35.0) % [place] % (Auto) (1.0-6.0) % Eos % (Auto) (1.5-5.0) % Baso % (Auto) (0.0-3.0) % Gran # (1.4-6.5) Lymph # (Auto) (1.2-3.4) [place] # (Auto) (0.1-0.6) Eos # (Auto) (0.0-0.7) Baso # (Auto) (0.0-2.0) K/mm3 PT 41.1 H (9.4-12.5) SECONDS INR 3.51 H* APTT 45.5 H (25.1-36.5) Seconds pCO2 (35-45) mm/Hg pO2 (80-100) mm/Hg HCO3 (21-28) mmol/L ABG pH (7.35-7.45) ABG Total CO2 (22-28) mmol.L ABG O2 Saturation (95-98) % ABG O2 Content (15-23) ML/dl ABG Base Excess (-2.0-3.0) mmol/L ABG Hemoglobin (11.7-17.4) g/dL ABG Carboxyhemoglobin (0.5-1.5) % POC ABG HHb (Measured) (0-5) % ABG Methemoglobin (0.0-3.0) % ABG O2 Capacity (16-24) mL/dl Hgb O2 Saturation (95.0-98.0) % FiO2 % Sodium 143 (132-148) mmol/L Potassium 3.9 (3.6-5.0) mmol/L Chloride 103 (98-107) mmol/L Carbon Dioxide 30 (21-33) mmol/L Anion Gap 14 (10-20) BUN 19 (7-21) mg/dL Creatinine 1.1 (0.7-1.2) mg/dl Est GFR ( Amer) > 60 Est GFR (Non-Af Amer) 53 Random Glucose 239 H (70-110) mg/dL Calcium 8.6 (8.4-10.5) mg/dL Total Bilirubin 0.5 (0.2-1.3) mg/dL AST 35 (14-36) U/L ALT 29 (7-56) U/L Alkaline Phosphatase 155 H D (38-126) U/L Lactate Dehydrogenase 773 H (333-699) U/L Total Creatine Kinase 30 L (35-230) U/L Troponin I 0.05 D ng/mL NT-Pro-B Natriuret Pep 64707 H (0-450) pg/mL Total Protein 7.8 (5.8-8.3) g/dL Albumin 3.9 (3.0-4.8) g/dL Globulin 3.9 gm/dL Albumin/Globulin Ratio 1.0 L (1.1-1.8) Procalcitonin (0.19-0.49) NG/ML Influenza Typ A,B (EIA) (NEGATIVE) Mycoplasma pneumon IgM (NEGATIVE) Laboratory Results - last 24 hr 06/19/18 06/19/18 06/19/18 03:55 03:55 03:55 WBC 16.7 H D RBC 5.18 Hgb 12.5 D Hct 44.2 MCV 85.3 MCH 24.1 L MCHC 28.3 L RDW 17.6 H Plt Count 265 MPV 11.2 H Gran % Lymph % (Auto) [place] % (Auto) Eos % (Auto) Baso % (Auto) Gran # Lymph # (Auto) [place] # (Auto) Eos # (Auto) Baso # (Auto) PT 41.1 H INR 3.51 H* APTT 45.5 H pCO2 pO2 HCO3 ABG pH ABG Total CO2 ABG O2 Saturation ABG O2 Content ABG Base Excess ABG Hemoglobin ABG Carboxyhemoglobin POC ABG HHb (Measured) ABG Methemoglobin ABG O2 Capacity Hgb O2 Saturation FiO2 Sodium 143 Potassium 3.9 Chloride 103 Carbon Dioxide 30 Anion Gap 14 BUN 19 Creatinine 1.1 Est GFR ( Amer) > 60 Est GFR (Non-Af Amer) 53 Random Glucose 239 H Calcium 8.6 Total Bilirubin 0.5 AST 35 ALT 29 Alkaline Phosphatase 155 H D Lactate Dehydrogenase 773 H Total Creatine Kinase 30 L Troponin I 0.05 D NT-Pro-B Natriuret Pep 08924 H Total Protein 7.8 Albumin 3.9 Globulin 3.9 Albumin/Globulin Ratio 1.0 L Procalcitonin Influenza Typ A,B (EIA) Mycoplasma pneumon IgM 06/19/18 06/19/18 06/19/18 04:06 07:40 08:30 WBC RBC Hgb Hct MCV MCH MCHC RDW Plt Count MPV Gran % Lymph % (Auto) [place] % (Auto) Eos % (Auto) Baso % (Auto) Gran # Lymph # (Auto) [place] # (Auto) Eos # (Auto) Baso # (Auto) PT INR APTT pCO2 55 H pO2 120.0 H HCO3 30.4 H ABG pH 7.35 ABG Total CO2 32.1 H ABG O2 Saturation 99.0 H ABG O2 Content 16.9 ABG Base Excess 3.6 H ABG Hemoglobin 12.3 ABG Carboxyhemoglobin 1.6 H POC ABG HHb (Measured) 1.0 ABG Methemoglobin 0.7 ABG O2 Capacity 17.1 Hgb O2 Saturation 96.6 FiO2 100.0 Sodium Potassium Chloride Carbon Dioxide Anion Gap BUN Creatinine Est GFR ( Amer) Est GFR (Non-Af Amer) Random Glucose Calcium Total Bilirubin AST ALT Alkaline Phosphatase Lactate Dehydrogenase Total Creatine Kinase Troponin I NT-Pro-B Natriuret Pep Total Protein Albumin Globulin Albumin/Globulin Ratio Procalcitonin Influenza Typ A,B (EIA) Negative for flu a/b Mycoplasma pneumon IgM Negative 06/19/18 06/19/18 06/19/18 08:30 08:30 08:30 WBC 12.9 H D RBC 4.48 Hgb 10.6 L Hct 37.6 MCV 83.9 MCH 23.7 L MCHC 28.2 L RDW 17.5 H Plt Count 190 MPV 10.4 Gran % 79.9 H Lymph % (Auto) 13.0 L [place] % (Auto) 6.7 H Eos % (Auto) 0.2 L Baso % (Auto) 0.2 Gran # 10.29 H Lymph # (Auto) 1.7 [place] # (Auto) 0.9 H Eos # (Auto) 0.0 Baso # (Auto) 0.02 PT INR APTT pCO2 pO2 HCO3 ABG pH ABG Total CO2 ABG O2 Saturation ABG O2 Content ABG Base Excess ABG Hemoglobin ABG Carboxyhemoglobin POC ABG HHb (Measured) ABG Methemoglobin ABG O2 Capacity Hgb O2 Saturation FiO2 Sodium 145 Potassium 3.0 L Chloride 106 Carbon Dioxide 33 Anion Gap 9 L BUN 24 H Creatinine 1.4 H Est GFR ( Amer) 48 Est GFR (Non-Af Amer) 40 Random Glucose 95 Calcium 8.0 L Total Bilirubin 0.2 AST 33 ALT 36 Alkaline Phosphatase 122 Lactate Dehydrogenase Total Creatine Kinase Troponin I NT-Pro-B Natriuret Pep Total Protein 6.4 Albumin 3.0 Globulin 3.4 Albumin/Globulin Ratio 0.9 L Procalcitonin 40.61 H Influenza Typ A,B (EIA) Mycoplasma pneumon IgM Radiology Impressions: Radiology Impressions Chest X-Ray 06/19/18 05:57 IMPRESSION: Alveolar infiltrates are seen in both lower lobes. The upper lobes are clear. There is a new right IJ line that terminates in the SVC with no pneumothorax. EKG/Cardiology Studies: Cardiology / EKG Studies 06/19/18 ELECTROCARDIOGRAM Stat Comment: Reason For Exam: sob Critical Care Progress Note - Nutrition Nutrition: Nutrition Category Date Time Status Heart Healthy Diet [DIET] Diets 06/19/18 Lunch Active Assessment/Plan - Assessment and Plan (Free Text) Assessment: Patient seen and examined on rounds with resident, agree with note with following additions/exceptions: Patient is 52yo female with PMHx of non-ischemic cardiomyopathy, CHF (EF: 15%) s/p AICD, SLE, Adrenal Insufficiency, PFO, ASD, Atrial Fibrillation on Warfarin, CVA with residual right sided weakness, anxiety and depression who was admitted for progressive SOB. Patient found to be in acute decompensated CHF, with superimposed PNA likely. Currently afebrile, BP stable, comfortable in NAD, on Milrinone, OFF BIPAP, SOB significantly improved. Labs, imaging, chart reviewed. Elevated ProBNP ID consulted Cardiology consulted On IV Lasix Acute Decompensated CHF systolic NICM, EF 15% s/p AICD SLE Adrenal Insufficieny PFO ASD Afib on Coumadin Recommend: - supp o2 as needed, goal sat 90%, BIPAP at night, duonebs PRN - Abx as per ID, panculture, BCx, UCx, check Procal, sputum culture - Milrinone gtt - Lasix 40mg IV BID - ECHO - Cardiology consult - Stress dose steroids (on chronic steroids) - I/Os, daily weights - repeat cardiac enzymes - Hold Coumadin - GI ppx - DVT ppx, INR>3 Monitor in CCU
--- NOTE | 2018-06-19 13:48 | HP ---
DATE OF EXAM: 06/19/2018 HISTORY OF PRESENT ILLNESS: The patient is 52-year-old black female known to me from previous admission, came to emergency room because of increasing cough, congestion and shortness of breath. The patient has complicated past medical history including history of systemic lupus erythematosus leading to cardiomyopathy. She has a poor ejection fraction of 15%. She has a status post defibrillator placement. She is on Primacor drip at home. The patient states she has been having fever, chills, cough and mucus production. Denies any hemoptysis. No history of hematemesis. No history of nausea, vomiting. No . PAST MEDICAL HISTORY: Significant for: 1. Cardiomyopathy with ejection fraction of 15% and pacemaker placement. 2. History of adrenal insufficiency. 3. Chronic AFib. 4. History of CVA with residual right sided weakness. 5. History of depression. 6. History of PFO. 7. Chronic anemia. 8. History of endocarditis. The patient's sample weaver Dr. Kahn in [place]. PAST SURGICAL HISTORY: Significant for, 1. Breast biopsy defibrillator placement. 2. Status post . FAMILY HISTORY: Significant for mom having esophageal cancer. SOCIAL HISTORY: Denies smoking and drinking. She used to be heavy smoker in the past, but quit 5 years ago. She lives with her family. ALLERGIES: SHE IS ALLERGIC TO TRAMADOL. HOME MEDICATIONS: She is on Percocet. She is on Coumadin 2 mg daily. She is on nystatin. She is on milrinone drip. She is on Mycamine and metoprolol, lisinopril, folic acid, Flonase, Pepcid, Bumex, amiodarone and Xanax. PHYSICAL EXAMINATION: GENERAL: She is awake and alert. She is sleepy, but arousable, open eyes with commands. VITAL SIGNS: She is afebrile. Pulse 85, respirations 22 and blood pressure 83/56. LUNGS: Bilateral soft crackle at bases. HEART: S1 and S2, audible. ABDOMEN: Soft, nontender and obese. No hepatosplenomegaly. NEUROLOGIC: The patient is awake and the patient is sleepy, but arousable. EXTREMITIES: Bilateral leg no edema. LABORATORY DATA: WBC is 12.9, hemoglobin 10.6, hematocrit 37.6 and platelets 190. PT 41.1 and INR 3.51. Chemistry; sodium 145, potassium 3.0, chloride 106, CO2 of 33, BUN 24, creatinine 1.4, blood sugar of 95, LFT's are within normal limits. BNP is 11,000. Flu test is negative. bilateral lower lobe infiltrate. ASSESSMENT: 1. Chronic heart failure exacerbation. 2. Bilateral pneumonia. 3. History of endocarditis. 4. Status post defibrillator placement. 5. Milrinone drip at home. PLAN: Currently, the patient is on cefepime. We will continue on nebulizer treatment. The patient is on Mycamine also, micafungin and potassium is supplemented. She is on milrinone drip and she is on Zithromax. We will follow up her electrolyte. Potassium has been supplemented. Currently, she is on BiPAP. Continue nebulizer treatment and followup. Chalo Fernandes MD
[2018-06-19] MEDS: Oxycodone/Acetaminophen 10/325 mg Tab PO PRN ×2 (15:00→23:10)
[2018-06-19] MEDS: guaiFENesin DM 100 mg-10 mg/5 ml UD PO PRN (17:13)
[2018-06-19] MEDS: Milrinone 20mg/100ml D5W 100 ML IV PRN (18:23)
[2018-06-19] MEDS: Meropenem IV 1 gm in NS 1 GM/50 ML BAG IVPB SCH (19:21)
[2018-06-20] MEDS: Milrinone 20mg/100ml D5W 100 ML IV PRN ×2 (03:43→15:03)
[2018-06-20] MEDS: guaiFENesin DM 100 mg-10 mg/5 ml UD PO PRN ×3 (03:59→21:19)
[2018-06-20] MEDS ORDERED: Pantoprazole 40 mg EC Tab PO SCH (06:00)
[2018-06-20 08:14] LABS: BASO # 0.01 K/mm3 (0.0-2.0); BASO % 0.1 % (0.0-3.0); GRAN # 15.57 (1.4-6.5); GRAN % 84.9 % (50.0-68.0); HEMOGLOBIN 10.7 g/dL (12.0-16.0); LYMPH # 1.9 (1.2-3.4); LYMPH % 10.2 % (22.0-35.0); MEAN CELL VOLUME 82.4 fl (80.0-105.0); MEAN CORPUSCULAR HEMOGLOBIN 23.6 pg (25.0-35.0); MEAN CORPUSCULAR HGB CONC 28.6 g/dl (31.0-37.0); MEAN PLATELET VOLUME 10.7 fl (7.0-11.0); MONO # 0.9 (0.1-0.6); MONO % 4.8 % (1.0-6.0); RBC 4.54 10^6/uL (3.5-6.1); RED CELL DISTRIBUTION WIDTH 17.6 % (11.5-14.5); WHITE BLOOD COUNT 18.3 10^3/uL (4.5-11.0)
[2018-06-20 08:25] LABS: PARTIAL THROMBOPLASTIN TIME 48.5 Seconds (25.1-36.5)
[2018-06-20 08:38] LABS: PROTHROMBIN TIME 44.6 SECONDS (9.4-12.5)
[2018-06-20 08:39] LABS: ALB/GLOB RATIO 0.9 (1.1-1.8); ALBUMIN 3.5 g/dL (3.0-4.8); ALT/SGPT 31 U/L (7-56); AST/SGOT 25 U/L (14-36); BLOOD UREA NITROGEN 24 mg/dL (7-21); CALCIUM 8.9 mg/dL (8.4-10.5); GFR NON-AFRICAN AMERICAN 53
[2018-06-20 08:40] LABS: INR 3.77
[2018-06-20] MEDS: Meropenem IV 1 gm in NS 1 GM/50 ML BAG IVPB SCH ×2 (09:06→21:18)
[2018-06-20] MEDS: Azithromycin 500MG/NS 250ml 500 MG/250 ML BAG IVPB SCH (09:07)
--- NOTE | 2018-06-20 09:55 | CP.CCUPN ---
<Raúl Pearl - Last Filed: 06/20/18 11:05> CCU Subjective - Physician Review Subjective (Free Text): Raúl Pearl Internal Medicine Resident- Progress Note on Behalf of Critical Care Team Subjective: Patient seen and examined at bedside. No acute events since admission. Patient states SOB has improved relative to baseline. Admits to nasal congestion and nonproductive cough. Denies fever, chills, chest pain, abdominal pain, nausea, vomiting. 12 point ROS negative except as indicated in HPI Physical Examination: - Constitutional Appears: no acute distress - Head Exam Head Exam: ATRAUMATIC, NORMAL INSPECTION, NORMOCEPHALIC - Eye Exam Eye Exam: PERRL - ENT Exam ENT Exam: Mucous Membranes Moist - Respiratory Exam Respiratory Exam: bibasilar diminished breath sounds - Cardiovascular Exam Cardiovascular Exam: RRR, REGULAR RHYTHM - GI/Abdominal Exam GI & Abdominal Exam: Normal Bowel Sounds, Soft. absent: Tenderness - Extremities Exam Extremities exam: no clubbing, no cyanosis, pedal edema (+1 pitting edema bilaterally) - Neurological Exam Neurological exam: AAO x 3, responds to verbal stimuli, follows commands, moves extremities past midline - Skin Skin Exam: Dry, Intact Assessment and Plan: Patient is a 52 year old female with a past medical history significant fornon- ischemic cardiomyopathy, CHF (EF: 15%) s/p AICD, SLE, Adrenal Insufficiency, PFO, ASD, Atrial Fibrillation on Warfarin, CVA with residual right sided weakness, anxiety and depression who was admitted for progressive SOB. Patient was found to have acute exacerbation of CHF with alveolar infiltrates in the lower lobes. Patient was transferred to ICU for further management of respiratory distress and persistent hypotension. Cardiovascular Cardiogenic Shock 2/2 Acutely Decompensated Sytolic CHF, Ischemic Cardiomyopathy - 06/19/2017 Chest X-Ray - Alveolar infiltrates are seen in both lower lobes. The upper lobes are clear. There is a new right IJ line that terminates in the SVC with no pneumothorax. - continue Milrinone gtt 0.375 mcg/kg/min - continue lasix 40mg IV q8h - cardiology started patient on on digoxin 0.125mg PO daily and lasix 40mg PO BID - Strict I/O's and Daily Weight - Cardiology consulted (Dr. Jones), all recommendations appreciated Atrial Fibrillation, Supratherapeutic INR - continue home amiodarone 200mg PO daily - cardiology started patient on on coreg 3.125mg PO BID - hold home wafarin due to elevated INR, elevation can also be secondary to abx Infectious Disease SIRs Criteria Met - 06/19/2017 Chest X-Ray - Alveolar infiltrates are seen in both lower lobes. The upper lobes are clear. There is a new right IJ line that terminates in the SVC with no pneumothorax.on - UA showing no signs of UTI - continue empiric therapy for HCAP-meropnem (day 1) and azithromycin (day 2) - continue micafungin 1 gram q12h (day 2) - blood cultures negative after 24 hours - Strep. Pneumo., Legionella, Mycoplasma, Influenza, khan cultures and procal ordered and pending - ID consulted (Dr. Metz)- appreciate recommendations GI GI Prophylaxis: - discontinue Protonix 40mg PO daily - start famotidine 20 PO bid Renal: MAIKOL - resolved - likely prerenal secondary to shock - monitor closely via CMP - restart home lisinopril 2.5mg PO daily with holding parameters Endocrinology: Adrenal Insufficiency - taper down from hydrocortisone 50mg q8h to q12h- recommend switching to PO on 06/21/2018 - maintain euglycemia Heme Normocytic Anemia - Hgb stable at approximate baseline ~10 - monitor closely via AM CBC DVT Prophylaxis: - continue SCD's Dispo: Patient is hemodynamically stable for transfer to [facility]. Patient seen, case reviewed with, and plan approved by attending physician, Dr. Chapman. CCU Objective - Vital Signs / Intake & Output Vital Signs (Last 4 hours): Vital Signs Temp Pulse Resp BP Pulse Ox 06/20/18 09:08 91 H 106/81 06/20/18 08:30 93 H 26 H 92 L 06/20/18 08:20 79 30 H 97 06/20/18 08:10 83 29 H 94 L 06/20/18 08:00 77 21 94 L 06/20/18 07:55 78 24 106/81 94 L 06/20/18 07:50 78 21 93 L 06/20/18 07:40 75 44 H 97 06/20/18 07:37 97.5 F L 06/20/18 07:30 76 19 94 L 06/20/18 07:20 75 45 H 93 L 06/20/18 07:10 82 34 H 95 06/20/18 07:00 100 H 39 H 89 L 06/20/18 06:55 77 29 H 112/76 95 06/20/18 06:50 72 16 95 06/20/18 06:40 79 16 95 06/20/18 06:30 71 18 95 06/20/18 06:20 75 20 94 L 06/20/18 06:10 72 17 95 06/20/18 06:00 76 17 95 06/20/18 05:55 90 96 H 122/69 95 06/20/18 05:50 75 18 95 Intake and Output (Last 8hrs): Intake & Output 06/19/18 06/20/18 06/20/18 22:59 06:59 14:59 Intake Total 2000 630 Output Total 1250 1301 Balance 750 -671 Intake: IV 1300 270 Right Internal Jugular 1300 120 Right Upper arm 50 Oral 700 360 Output: Urine 1250 1300 Urethral (Anaya) 1250 1300 Stool 1 Other: # Bowel Movements 2 - Physical Exam Head: Positive for: Atraumatic, Normocephalic Pupils: Positive for: PERRL Extroacular Muscles: Positive for: EOMI Conjunctiva: Positive for: Normal Mouth: Positive for: Moist Mucous Membranes Neck: Positive for: Normal Range of Motion Respiratory/Chest: Positive for: Respiratory Distress (Mild respiratory distress), Rhonchi (Rhonchi bilaterally). Negative for: Accessory Muscle Use Cardiovascular: Positive for: Regular Rate and Rhythm, Normal S1, S2. Negative for: Murmurs Abdomen: Negative for: Tenderness, Distention, Peritoneal Signs Back: Positive for: Normal Inspection Upper Extremity: Positive for: Normal Inspection. Negative for: Cyanosis, Edema Lower Extremity: Positive for: Normal Inspection. Negative for: Edema Neurological: Positive for: GCS=15, CN II-XII Intact, Speech Normal Skin: Positive for: Warm, Dry, Normal Color. Negative for: Rashes Psychiatric: Positive for: Alert, Oriented x 3, Normal Insight, Normal Concentration - Medications Active Medications: Active Medications Generic Name Dose Route Start Last Admin Trade Name Freq PRN Reason Stop Dose Admin Amiodarone HCl 200 mg 06/19/18 12:15 06/20/18 09:08 Cordarone PO 200 mg DAILY ANA LILIA Administration Benzocaine/Menthol 1 amber 06/19/18 16:37 Cepacol Sore Throat MT Q2H PRN Sore Throat Famotidine 20 mg 06/19/18 18:00 Pepcid PO BID ANA LILIA Folic Acid 1 mg 06/20/18 10:00 06/20/18 09:08 Folic Acid PO 1 mg DAILY ANA LILIA Administration Furosemide 40 mg 06/19/18 12:15 06/20/18 03:41 Lasix IV 40 mg Q8H ANA LILIA Administration Guaifenesin/Dextromethorphan 5 ml 06/19/18 16:36 06/20/18 09:07 Robitussin Dm PO 5 ml Q4H PRN Administration Cough Hydrocortisone Sodium Succinate 50 mg 06/19/18 10:00 06/20/18 06:51 Solu-Cortef IVP 50 mg Q8 ANA LILIA Administration Milrinone Lactate/Dextrose 100 mls @ 9.731 mls/hr 06/19/18 09:54 06/20/18 03:43 Primacor 20mg/100ml D5w IV 0.375 mcg/kg/min .[id number] PRN 9.731 mls/hr TITRATE PER MD ORDER Administration Protocol 0.375 MCG/KG/MIN Azithromycin 500 mg in 250 mls @ 167 mls/hr 06/20/18 10:00 06/20/18 09:07 Zithromax 500mg In Ns IVPB 167 mls/hr DAILY ANA LILIA Administration Protocol Micafungin Sodium 100 mg/ 100 mls @ 100 mls/hr 06/20/18 10:00 06/20/18 09:39 Sodium Chloride IV 06/27/18 10:01 100 mls/hr DAILY ANA LILIA Administration Protocol Meropenem 1 gm in 50 mls @ 100 mls/hr 06/19/18 18:00 06/20/18 09:06 Merrem Iv 1 Gm Premix IVPB 06/26/18 18:01 100 mls/hr Q12 ANA LILIA Administration Protocol Lisinopril 2.5 mg 06/20/18 10:00 Zestril PO DAILY ANA LILIA Oxycodone/Acetaminophen 1 tab 06/19/18 12:04 06/19/18 23:10 Percocet 10/325 Mg Tab PO 1 tab BID PRN Administration Pain, moderate (4-7) Pantoprazole Sodium 40 mg 06/20/18 06:00 06/20/18 06:51 Protonix Ec Tab PO 40 mg 0600 ANA LILIA Administration Sodium Chloride 0 ml 06/20/18 09:20 Cool Nasal Boyce NS BID PRN Nasal congestion - Patient Studies Lab Studies: Microbiology Studies 06/19/18 06:07 Blood Culture - Preliminary Blood NO GROWTH AFTER 24 HOURS 06/19/18 05:45 Blood Culture - Preliminary Blood NO GROWTH AFTER 24 HOURS Lab Studies 06/20/18 06/20/18 06/20/18 Range/Units 07:30 07:30 07:30 WBC 18.3 H D (4.5-11.0) 10^3/uL RBC 4.54 (3.5-6.1) 10^6/uL Hgb 10.7 L (12.0-16.0) g/dL Hct 37.4 (36.0-48.0) % MCV 82.4 (80.0-105.0) fl MCH 23.6 L (25.0-35.0) pg MCHC 28.6 L (31.0-37.0) g/dl RDW 17.6 H (11.5-14.5) % Plt Count 207 (120.0-450.0) 10^3/uL MPV 10.7 (7.0-11.0) fl Gran % 84.9 H (50.0-68.0) % Lymph % (Auto) 10.2 L (22.0-35.0) % Bandera % (Auto) 4.8 (1.0-6.0) % Eos % (Auto) 0.0 L (1.5-5.0) % Baso % (Auto) 0.1 (0.0-3.0) % Gran # 15.57 H (1.4-6.5) Lymph # (Auto) 1.9 (1.2-3.4) Bandera # (Auto) 0.9 H (0.1-0.6) Eos # (Auto) 0.0 (0.0-0.7) Baso # (Auto) 0.01 (0.0-2.0) K/mm3 PT 44.6 H (9.4-12.5) SECONDS INR 3.77 H* APTT 48.5 H (25.1-36.5) Seconds Sodium 144 (132-148) mmol/L Potassium 4.2 (3.6-5.0) mmol/L Chloride 107 (98-107) mmol/L Carbon Dioxide 33 (21-33) mmol/L Anion Gap 9 L (10-20) BUN 24 H (7-21) mg/dL Creatinine 1.1 (0.7-1.2) mg/dl Est GFR ( Amer) > 60 Est GFR (Non-Af Amer) 53 Random Glucose 109 (70-110) mg/dL Calcium 8.9 (8.4-10.5) mg/dL Phosphorus 3.6 (2.5-4.5) mg/dL Magnesium 2.2 (1.7-2.2) mg/dL Total Bilirubin 0.2 (0.2-1.3) mg/dL AST 25 (14-36) U/L ALT 31 (7-56) U/L Alkaline Phosphatase 120 (38-126) U/L Total Protein 7.3 (5.8-8.3) g/dL Albumin 3.5 (3.0-4.8) g/dL Globulin 3.8 gm/dL Albumin/Globulin Ratio 0.9 L (1.1-1.8) Procalcitonin (0.19-0.49) NG/ML Mycoplasma pneumon IgM (NEGATIVE) 06/19/18 06/19/18 Range/Units 08:30 08:30 WBC (4.5-11.0) 10^3/uL RBC (3.5-6.1) 10^6/uL Hgb (12.0-16.0) g/dL Hct (36.0-48.0) % MCV (80.0-105.0) fl MCH (25.0-35.0) pg MCHC (31.0-37.0) g/dl RDW (11.5-14.5) % Plt Count (120.0-450.0) 10^3/uL MPV (7.0-11.0) fl Gran % (50.0-68.0) % Lymph % (Auto) (22.0-35.0) % Bandera % (Auto) (1.0-6.0) % Eos % (Auto) (1.5-5.0) % Baso % (Auto) (0.0-3.0) % Gran # (1.4-6.5) Lymph # (Auto) (1.2-3.4) Bandera # (Auto) (0.1-0.6) Eos # (Auto) (0.0-0.7) Baso # (Auto) (0.0-2.0) K/mm3 PT (9.4-12.5) SECONDS INR APTT (25.1-36.5) Seconds Sodium (132-148) mmol/L Potassium (3.6-5.0) mmol/L Chloride (98-107) mmol/L Carbon Dioxide (21-33) mmol/L Anion Gap (10-20) BUN (7-21) mg/dL Creatinine (0.7-1.2) mg/dl Est GFR ( Amer) Est GFR (Non-Af Amer) Random Glucose (70-110) mg/dL Calcium (8.4-10.5) mg/dL Phosphorus (2.5-4.5) mg/dL Magnesium (1.7-2.2) mg/dL Total Bilirubin (0.2-1.3) mg/dL AST (14-36) U/L ALT (7-56) U/L Alkaline Phosphatase (38-126) U/L Total Protein (5.8-8.3) g/dL Albumin (3.0-4.8) g/dL Globulin gm/dL Albumin/Globulin Ratio (1.1-1.8) Procalcitonin 40.61 H (0.19-0.49) NG/ML Mycoplasma pneumon IgM Negative (NEGATIVE) Laboratory Results - last 24 hr 06/19/18 06/19/18 06/20/18 08:30 08:30 07:30 WBC 18.3 H D RBC 4.54 Hgb 10.7 L Hct 37.4 MCV 82.4 MCH 23.6 L MCHC 28.6 L RDW 17.6 H Plt Count 207 MPV 10.7 Gran % 84.9 H Lymph % (Auto) 10.2 L Bandera % (Auto) 4.8 Eos % (Auto) 0.0 L Baso % (Auto) 0.1 Gran # 15.57 H Lymph # (Auto) 1.9 Bandera # (Auto) 0.9 H Eos # (Auto) 0.0 Baso # (Auto) 0.01 PT INR APTT Sodium Potassium Chloride Carbon Dioxide Anion Gap BUN Creatinine Est GFR ( Amer) Est GFR (Non-Af Amer) Random Glucose Calcium Phosphorus Magnesium Total Bilirubin AST ALT Alkaline Phosphatase Total Protein Albumin Globulin Albumin/Globulin Ratio Procalcitonin 40.61 H Mycoplasma pneumon IgM Negative 06/20/18 06/20/18 07:30 07:30 WBC RBC Hgb Hct MCV MCH MCHC RDW Plt Count MPV Gran % Lymph % (Auto) Bandera % (Auto) Eos % (Auto) Baso % (Auto) Gran # Lymph # (Auto) Bandera # (Auto) Eos # (Auto) Baso # (Auto) PT 44.6 H INR 3.77 H* APTT 48.5 H Sodium 144 Potassium 4.2 Chloride 107 Carbon Dioxide 33 Anion Gap 9 L BUN 24 H Creatinine 1.1 Est GFR ( Amer) > 60 Est GFR (Non-Af Amer) 53 Random Glucose 109 Calcium 8.9 Phosphorus 3.6 Magnesium 2.2 Total Bilirubin 0.2 AST 25 ALT 31 Alkaline Phosphatase 120 Total Protein 7.3 Albumin 3.5 Globulin 3.8 Albumin/Globulin Ratio 0.9 L Procalcitonin Mycoplasma pneumon IgM Radiology Impressions: Radiology Impressions Chest X-Ray 06/19/18 05:57 IMPRESSION: Alveolar infiltrates are seen in both lower lobes. The upper lobes are clear. There is a new right IJ line that terminates in the SVC with no pneumothorax. Critical Care Progress Note - Nutrition Nutrition: Nutrition Category Date Time Status Heart Healthy Diet [DIET] Diets 06/19/18 Lunch Active <Zaid Chapman - Last Filed: 06/20/18 14:45> CCU Objective - Vital Signs / Intake & Output Vital Signs (Last 4 hours): Vital Signs Pulse Resp BP Pulse Ox 06/20/18 11:30 85 23 97 06/20/18 11:20 87 24 95 06/20/18 11:10 91 H 28 H 100 06/20/18 11:00 92 H 25 H 118/62 95 06/20/18 10:56 91 H 118/62 06/20/18 10:55 89 22 118/62 98 06/20/18 10:50 92 H 26 H 99 Intake and Output (Last 8hrs): Intake & Output 06/19/18 06/20/18 06/20/18 22:59 06:59 14:59 Intake Total 2000 630 Output Total 1250 1301 Balance 750 -671 Intake: IV 1300 270 Right Internal Jugular 1300 120 Right Upper arm 50 Oral 700 360 Output: Urine 1250 1300 Urethral (Anaya) 1250 1300 Stool 1 Other: Voiding Method Indwelling Catheter # Bowel Movements 2 - Medications Active Medications: Active Medications Generic Name Dose Route Start Last Admin Trade Name Freq PRN Reason Stop Dose Admin Alprazolam 0.25 mg 06/20/18 12:08 Xanax PO 06/27/18 18:01 BID PRN Anxiety Protocol Amiodarone HCl 200 mg 06/19/18 12:15 06/20/18 09:08 Cordarone PO 200 mg DAILY ANA LILIA Administration Benzocaine/Menthol 1 amber 06/19/18 16:37 Cepacol Sore Throat MT Q2H PRN Sore Throat Carvedilol 3.125 mg 06/20/18 10:00 06/20/18 10:56 Coreg PO 3.125 mg BID ANA LILIA Administration Digoxin 0.125 mg 06/20/18 14:00 Digoxin PO 1400 ANA LILIA Famotidine 20 mg 06/19/18 18:00 Pepcid PO BID ANA LILIA Folic Acid 1 mg 06/20/18 10:00 06/20/18 09:08 Folic Acid PO 1 mg DAILY ANA LILIA Administration Furosemide 40 mg 06/19/18 12:15 06/20/18 11:00 Lasix IV 06/20/18 23:59 40 mg Q8H ANA LILIA Administration Furosemide 40 mg 06/21/18 08:00 Lasix PO 0800,1400 ANA LILIA Guaifenesin/Dextromethorphan 5 ml 06/19/18 16:36 06/20/18 09:07 Robitussin Dm PO 5 ml Q4H PRN Administration Cough Hydrocortisone Sodium Succinate 50 mg 06/20/18 18:00 Solu-Cortef IVP Q12H ANA LILIA Milrinone Lactate/Dextrose 100 mls @ 9.731 mls/hr 06/19/18 09:54 06/20/18 03:43 Primacor 20mg/100ml D5w IV 0.375 mcg/kg/min .[id number] PRN 9.731 mls/hr TITRATE PER MD ORDER Administration Protocol 0.375 MCG/KG/MIN Azithromycin 500 mg in 250 mls @ 167 mls/hr 06/20/18 10:00 06/20/18 09:07 Zithromax 500mg In Ns IVPB 167 mls/hr DAILY ANA LILIA Administration Protocol Micafungin Sodium 100 mg/ 100 mls @ 100 mls/hr 06/20/18 10:00 06/20/18 09:39 Sodium Chloride IV 06/27/18 10:01 100 mls/hr DAILY ANA LILIA Administration Protocol Meropenem 1 gm in 50 mls @ 100 mls/hr 06/19/18 18:00 06/20/18 09:06 Merrem Iv 1 Gm Premix IVPB 06/26/18 18:01 100 mls/hr Q12 ANA LILIA Administration Protocol Lisinopril 2.5 mg 06/20/18 10:31 Zestril PO DAILY ANA LILIA Loratadine 10 mg 06/20/18 12:15 Claritin PO DAILY ANA LILIA Oxycodone/Acetaminophen 1 tab 06/19/18 12:04 06/19/18 23:10 Percocet 10/325 Mg Tab PO 1 tab BID PRN Administration Pain, moderate (4-7) Sodium Chloride 0 ml 06/20/18 09:20 Cool Nasal Boyce NS BID PRN Nasal congestion - Patient Studies Lab Studies: Microbiology Studies 06/19/18 08:50 MRSA Culture (Admit) - Final Naris MRSA NOT DETECTED 06/19/18 06:07 Blood Culture - Preliminary Blood NO GROWTH AFTER 24 HOURS 06/19/18 05:45 Blood Culture - Preliminary Blood NO GROWTH AFTER 24 HOURS Lab Studies 06/20/18 06/20/18 06/20/18 Range/Units 07:30 07:30 07:30 WBC 18.3 H D (4.5-11.0) 10^3/uL RBC 4.54 (3.5-6.1) 10^6/uL Hgb 10.7 L (12.0-16.0) g/dL Hct 37.4 (36.0-48.0) % MCV 82.4 (80.0-105.0) fl MCH 23.6 L (25.0-35.0) pg MCHC 28.6 L (31.0-37.0) g/dl RDW 17.6 H (11.5-14.5) % Plt Count 207 (120.0-450.0) 10^3/uL MPV 10.7 (7.0-11.0) fl Gran % 84.9 H (50.0-68.0) % Lymph % (Auto) 10.2 L (22.0-35.0) % Bandera % (Auto) 4.8 (1.0-6.0) % Eos % (Auto) 0.0 L (1.5-5.0) % Baso % (Auto) 0.1 (0.0-3.0) % Gran # 15.57 H (1.4-6.5) Lymph # (Auto) 1.9 (1.2-3.4) Bandera # (Auto) 0.9 H (0.1-0.6) Eos # (Auto) 0.0 (0.0-0.7) Baso # (Auto) 0.01 (0.0-2.0) K/mm3 PT 44.6 H (9.4-12.5) SECONDS INR 3.77 H* APTT 48.5 H (25.1-36.5) Seconds Sodium 144 (132-148) mmol/L Potassium 4.2 (3.6-5.0) mmol/L Chloride 107 (98-107) mmol/L Carbon Dioxide 33 (21-33) mmol/L Anion Gap 9 L (10-20) BUN 24 H (7-21) mg/dL Creatinine 1.1 (0.7-1.2) mg/dl Est GFR ( Amer) > 60 Est GFR (Non-Af Amer) 53 Random Glucose 109 (70-110) mg/dL Calcium 8.9 (8.4-10.5) mg/dL Phosphorus 3.6 (2.5-4.5) mg/dL Magnesium 2.2 (1.7-2.2) mg/dL Total Bilirubin 0.2 (0.2-1.3) mg/dL AST 25 (14-36) U/L ALT 31 (7-56) U/L Alkaline Phosphatase 120 (38-126) U/L Total Protein 7.3 (5.8-8.3) g/dL Albumin 3.5 (3.0-4.8) g/dL Globulin 3.8 gm/dL Albumin/Globulin Ratio 0.9 L (1.1-1.8) Random Vancomycin (20-40) ug/mL 06/20/18 Range/Units 07:30 WBC (4.5-11.0) 10^3/uL RBC (3.5-6.1) 10^6/uL Hgb (12.0-16.0) g/dL Hct (36.0-48.0) % MCV (80.0-105.0) fl MCH (25.0-35.0) pg MCHC (31.0-37.0) g/dl RDW (11.5-14.5) % Plt Count (120.0-450.0) 10^3/uL MPV (7.0-11.0) fl Gran % (50.0-68.0) % Lymph % (Auto) (22.0-35.0) % Bandera % (Auto) (1.0-6.0) % Eos % (Auto) (1.5-5.0) % Baso % (Auto) (0.0-3.0) % Gran # (1.4-6.5) Lymph # (Auto) (1.2-3.4) Bandera # (Auto) (0.1-0.6) Eos # (Auto) (0.0-0.7) Baso # (Auto) (0.0-2.0) K/mm3 PT (9.4-12.5) SECONDS INR APTT (25.1-36.5) Seconds Sodium (132-148) mmol/L Potassium (3.6-5.0) mmol/L Chloride (98-107) mmol/L Carbon Dioxide (21-33) mmol/L Anion Gap (10-20) BUN (7-21) mg/dL Creatinine (0.7-1.2) mg/dl Est GFR ( Amer) Est GFR (Non-Af Amer) Random Glucose (70-110) mg/dL Calcium (8.4-10.5) mg/dL Phosphorus (2.5-4.5) mg/dL Magnesium (1.7-2.2) mg/dL Total Bilirubin (0.2-1.3) mg/dL AST (14-36) U/L ALT (7-56) U/L Alkaline Phosphatase (38-126) U/L Total Protein (5.8-8.3) g/dL Albumin (3.0-4.8) g/dL Globulin gm/dL Albumin/Globulin Ratio (1.1-1.8) Random Vancomycin 10.7 L (20-40) ug/mL Laboratory Results - last 24 hr 06/20/18 06/20/18 06/20/18 07:30 07:30 07:30 WBC 18.3 H D RBC 4.54 Hgb 10.7 L Hct 37.4 MCV 82.4 MCH 23.6 L MCHC 28.6 L RDW 17.6 H Plt Count 207 MPV 10.7 Gran % 84.9 H Lymph % (Auto) 10.2 L Bandera % (Auto) 4.8 Eos % (Auto) 0.0 L Baso % (Auto) 0.1 Gran # 15.57 H Lymph # (Auto) 1.9 Bandera # (Auto) 0.9 H Eos # (Auto) 0.0 Baso # (Auto) 0.01 PT INR APTT Sodium 144 Potassium 4.2 Chloride 107 Carbon Dioxide 33 Anion Gap 9 L BUN 24 H Creatinine 1.1 Est GFR ( Amer) > 60 Est GFR (Non-Af Amer) 53 Random Glucose 109 Calcium 8.9 Phosphorus 3.6 Magnesium 2.2 Total Bilirubin 0.2 AST 25 ALT 31 Alkaline Phosphatase 120 Total Protein 7.3 Albumin 3.5 Globulin 3.8 Albumin/Globulin Ratio 0.9 L Random Vancomycin 10.7 L 06/20/18 07:30 WBC RBC Hgb Hct MCV MCH MCHC RDW Plt Count MPV Gran % Lymph % (Auto) Bandera % (Auto) Eos % (Auto) Baso % (Auto) Gran # Lymph # (Auto) Bandera # (Auto) Eos # (Auto) Baso # (Auto) PT 44.6 H INR 3.77 H* APTT 48.5 H Sodium Potassium Chloride Carbon Dioxide Anion Gap BUN Creatinine Est GFR ( Amer) Est GFR (Non-Af Amer) Random Glucose Calcium Phosphorus Magnesium Total Bilirubin AST ALT Alkaline Phosphatase Total Protein Albumin Globulin Albumin/Globulin Ratio Random Vancomycin Radiology Impressions: Radiology Impressions Chest X-Ray 06/20/18 09:55 IMPRESSION: Interval improvement in right lower lobe pneumonia. Persistent right upper lobe airspace disease. The left lower lobe cannot be evaluated due to overlying pacemaker device. Component of mild congestive heart failure. Critical Care Progress Note - Nutrition Nutrition: Nutrition Category Date Time Status Heart Healthy Diet [DIET] Diets 06/19/18 Lunch Active Assessment/Plan - Assessment and Plan (Free Text) Assessment: Patient seen and examined on rounds with resident, agree with note with following additions/exceptions: Patient is 52yo female with PMHx of non-ischemic cardiomyopathy, CHF (EF: 15%) s/p AICD, SLE, Adrenal Insufficiency, PFO, ASD, Atrial Fibrillation on Warfarin, CVA with residual right sided weakness, anxiety and depression who was admitted for progressive SOB. Patient found to be in acute decompensated CHF, with sup erimposed PNA likely. Currently afebrile, BP stable, comfortable in NAD, on Milrinone, OFF BIPAP NO major complaints today, reports SOB is significantly improved Labs, imaging, chart reviewed. Elevated ProBNP, Procal ID consulted Cardiology consulted Acute Decompensated CHF systolic NICM, EF 15% s/p AICD SLE Adrenal Insufficiency PFO ASD Afib on Coumadin Recommend: - supp o2 as needed, goal sat 90%, BIPAP at night, duonebs PRN - Abx as per ID - Milrinone gtt - Lasix 40mg IV BID - ECHO - Cardiology follow up - Taper steroids, Solucortef 50mg BID - I/Os, daily weights - Hold Coumadin - GI ppx - DVT ppx, INR>3 Monitor in CCU
[2018-06-20] MEDS ORDERED: Micafungin 100 MG in Sodium Chloride 0.9% 100 ML IV SCH (10:00)
--- NOTE | 2018-06-20 11:15 | CARD ---
APPROVED REPORT Date of service: 06/19/2018 EKG Measurement Heart [id number] <Conclusion> Sinus tachycardia with occasional premature ventricular complexes and fusion complexes Low voltage QRS Left anterior fascicular block Marked ST abnormality, possible anterior subendocardial injury Abnormal ECG
--- NOTE | 2018-06-20 11:44 | RAD ---
Date of service: 06/20/2018 HISTORY: R/O pneumonia Vs CHF COMPARISON: 06/19/2018 FINDINGS: The right PICC line terminates in the SVC. The right IJV line terminates at the cavoatrial junction. LUNGS: There is interval improved aeration in the right lower lobe with persistent airspace disease in the upper and lower lobes, worse in the lower lobes. The left lower lobe is obscured by pacemaker device. Again seen is moderate pulmonary venous congestion. PLEURA: Small effusions. No pneumothorax. CARDIOVASCULAR: Severe cardiomegaly and prominent central vasculature. No aortic atherosclerotic calcifications present. OSSEOUS STRUCTURES: Within normal limits for the patient's age. VISUALIZED UPPER ABDOMEN: Normal. OTHER FINDINGS: None. IMPRESSION: Interval improvement in right lower lobe pneumonia. Persistent right upper lobe airspace disease. The left lower lobe cannot be evaluated due to overlying pacemaker device. Component of mild congestive heart failure.
--- NOTE | 2018-06-20 13:06 | CP.PCM.PN ---
<Jacob Us - Last Filed: 06/20/18 13:02> Subjective - Date & Time of Evaluation Date of Evaluation: 06/20/18 Time of Evaluation: 07:00 - Subjective Subjective: ID progress Note Patient seen and examined. No acute events overnight. Patient much improved from previous day. Denies chest pain, shortness of breath, nausea, vomiting, diarrhea, fever, chills. Objective - Vital Signs/Intake and Output Vital Signs (last 24 hours): Temp Pulse Resp BP Pulse Ox 97.5 F L 85 23 118/62 97 06/20/18 07:37 06/20/18 11:30 06/20/18 11:30 06/20/18 11:00 06/20/18 11:30 Intake and Output: 06/20/18 06/20/18 06:59 18:59 Intake Total 630 Output Total 1301 Balance -671 - Medications Medications: Current Medications Alprazolam (Xanax) 0.25 mg PO BID PRN; Protocol PRN Reason: Anxiety Stop: 06/27/18 18:01 Amiodarone HCl (Cordarone) 200 mg PO DAILY [facility] Last Admin: 06/20/18 09:08 Dose: 200 mg Benzocaine/Menthol (Cepacol Sore Throat) 1 amber MT Q2H PRN PRN Reason: Sore Throat Carvedilol (Coreg) 3.125 mg PO BID [facility] Last Admin: 06/20/18 10:56 Dose: 3.125 mg Digoxin (Digoxin) 0.125 mg PO 1400 [facility] Famotidine (Pepcid) 20 mg PO BID [facility] Folic Acid (Folic Acid) 1 mg PO DAILY [facility] Last Admin: 06/20/18 09:08 Dose: 1 mg Furosemide (Lasix) 40 mg IV Q8H [facility] Stop: 06/20/18 23:59 Last Admin: 06/20/18 11:00 Dose: 40 mg Furosemide (Lasix) 40 mg PO 0800,1400 [facility] Guaifenesin/Dextromethorphan (Robitussin Dm) 5 ml PO Q4H PRN PRN Reason: Cough Last Admin: 06/20/18 09:07 Dose: 5 ml Hydrocortisone Sodium Succinate (Solu-Cortef) 50 mg IVP Q12H [facility] Milrinone Lactate/Dextrose (Primacor 20mg/100ml D5w) 100 mls @ 9.731 mls/hr IV .[id number] PRN; Protocol PRN Reason: TITRATE PER MD ORDER Last Admin: 06/20/18 03:43 Dose: 0.375 mcg/kg/min, 9.731 mls/hr Azithromycin (Zithromax 500mg In Ns) 500 mg in 250 mls @ 167 mls/hr IVPB DAILY [facility]; Protocol Last Admin: 06/20/18 09:07 Dose: 167 mls/hr Micafungin Sodium 100 mg/ (Sodium Chloride) 100 mls @ 100 mls/hr IV DAILY [facility]; Protocol Stop: 06/27/18 10:01 Last Admin: 06/20/18 09:39 Dose: 100 mls/hr Meropenem (Merrem Iv 1 Gm Premix) 1 gm in 50 mls @ 100 mls/hr IVPB Q12 [facility]; Protocol Stop: 06/26/18 18:01 Last Admin: 06/20/18 09:06 Dose: 100 mls/hr Lisinopril (Zestril) 2.5 mg PO DAILY [facility] Loratadine (Claritin) 10 mg PO DAILY [facility] Oxycodone/Acetaminophen (Percocet 10/325 Mg Tab) 1 tab PO BID PRN PRN Reason: Pain, moderate (4-7) Last Admin: 06/19/18 23:10 Dose: 1 tab Sodium Chloride ([place] Nasal [place]) 0 ml NS BID PRN PRN Reason: Nasal congestion - Labs Labs: 06/20/18 07:30 06/20/18 07:30 PT 44.6 SECONDS (9.4-12.5) H 06/20/18 07:30 INR 3.77 H* 06/20/18 07:30 APTT 48.5 Seconds (25.1-36.5) H 06/20/18 07:30 - Constitutional Appears: Non-toxic, No Acute Distress - Head Exam Head Exam: ATRAUMATIC, NORMAL INSPECTION, NORMOCEPHALIC - ENT Exam ENT Exam: Mucous Membranes Moist - Respiratory Exam Respiratory Exam: Decreased Breath Sounds, Rhonchi, NORMAL BREATHING PATTERN. absent: Wheezes, Respiratory Distress - Cardiovascular Exam Cardiovascular Exam: Irregular Rhythm, +S1, +S2 - GI/Abdominal Exam GI & Abdominal Exam: Soft, Normal Bowel Sounds. absent: Tenderness - Extremities Exam Extremities Exam: Normal Inspection. absent: Pedal Edema - Neurological Exam Neurological Exam: Alert, Awake, Oriented x3 - Psychiatric Exam Psychiatric exam: Normal Affect, Normal Mood - Skin Skin Exam: Intact, Normal Color, Warm Assessment and Plan - Assessment and Plan (Free Text) Plan: Cardiogenic shock with SIRS CHF exacerbation MAIKOL, improving Hx of Adrenal insufficiency Hx of Ashley glabrata fungemia Hx of A-fib on Coumadin Hx of CHF with EF 15% Hx of AICD Hx of SLE Plan: Afebrile, leukocytosis Continue Merrem for 5-7 days Will stop Mycamine at this time as blood cultures are negative x 24 hours Vancomycin level low Procalcitonin elevated Influenza and Mycoplasma negative Strep pneumo pending Bhakin, PGY-3 <Luis Metz - Last Filed: 06/20/18 17:59> Objective - Vital Signs/Intake and Output Vital Signs (last 24 hours): Temp Pulse Resp BP Pulse Ox 97.5 F L 90 20 116/66 100 06/20/18 07:37 06/20/18 17:42 06/20/18 14:40 06/20/18 17:42 06/20/18 14:40 Intake and Output: 06/20/18 06/20/18 06:59 18:59 Intake Total 630 100 Output Total 1301 Balance -671 100 - Medications Medications: Current Medications Alprazolam (Xanax) 0.25 mg PO BID PRN; Protocol PRN Reason: Anxiety Stop: 06/27/18 18:01 Last Admin: 06/20/18 17:43 Dose: 0.25 mg Amiodarone HCl (Cordarone) 200 mg PO DAILY [facility] Last Admin: 06/20/18 09:08 Dose: 200 mg Benzocaine/Menthol (Cepacol Sore Throat) 1 amber MT Q2H PRN PRN Reason: Sore Throat Carvedilol (Coreg) 3.125 mg PO BID [facility] Last Admin: 06/20/18 17:42 Dose: 3.125 mg Digoxin (Digoxin) 0.125 mg PO 1400 [facility] Last Admin: 06/20/18 14:56 Dose: 0.125 mg Famotidine (Pepcid) 20 mg PO BID [facility] Last Admin: 06/20/18 17:42 Dose: 20 mg Folic Acid (Folic Acid) 1 mg PO DAILY [facility] Last Admin: 06/20/18 09:08 Dose: 1 mg Furosemide (Lasix) 40 mg IV Q8H [facility] Stop: 06/20/18 23:59 Last Admin: 06/20/18 14:51 Dose: Not Given Furosemide (Lasix) 40 mg PO 0800,1400 [facility] Guaifenesin/Dextromethorphan (Robitussin Dm) 5 ml PO Q4H PRN PRN Reason: Cough Last Admin: 06/20/18 09:07 Dose: 5 ml Hydrocortisone Sodium Succinate (Solu-Cortef) 50 mg IVP Q12H [facility] Last Admin: 06/20/18 17:42 Dose: 50 mg Milrinone Lactate/Dextrose (Primacor 20mg/100ml D5w) 100 mls @ 9.731 mls/hr IV .[id number] PRN; Protocol PRN Reason: TITRATE PER MD ORDER Last Admin: 06/20/18 15:03 Dose: 0.375 mcg/kg/min, 9.731 mls/hr Azithromycin (Zithromax 500mg In Ns) 500 mg in 250 mls @ 167 mls/hr IVPB DAILY [facility]; Protocol Last Admin: 06/20/18 09:07 Dose: 167 mls/hr Micafungin Sodium 100 mg/ (Sodium Chloride) 100 mls @ 100 mls/hr IV DAILY [facility]; Protocol Stop: 06/27/18 10:01 Last Admin: 06/20/18 09:39 Dose: 100 mls/hr Meropenem (Merrem Iv 1 Gm Premix) 1 gm in 50 mls @ 100 mls/hr IVPB Q12 [facility]; Protocol Stop: 06/26/18 18:01 Last Admin: 06/20/18 09:06 Dose: 100 mls/hr Lisinopril (Zestril) 2.5 mg PO DAILY [facility] Loratadine (Claritin) 10 mg PO DAILY [facility] Last Admin: 06/20/18 14:59 Dose: 10 mg Oxycodone/Acetaminophen (Percocet 10/325 Mg Tab) 1 tab PO BID PRN PRN Reason: Pain, moderate (4-7) Last Admin: 06/19/18 23:10 Dose: 1 tab Sodium Chloride ([place] Nasal [place]) 0 ml NS BID PRN PRN Reason: Nasal congestion - Labs Labs: 06/20/18 07:30 06/20/18 07:30 PT 44.6 SECONDS (9.4-12.5) H 06/20/18 07:30 INR 3.77 H* 06/20/18 07:30 APTT 48.5 Seconds (25.1-36.5) H 06/20/18 07:30 Assessment and Plan - Assessment and Plan (Free Text) Plan: Infectious diseases Attending Physician Attestation Patient seen and examined, discussed with infertility medical assistant. I have reviewed the patient's history of present illness, past medical, social, personal and family histories, pertinent physical exam findings, course so far in this hospital admission, pertinent laboratory and imaging results. I agree with the above findings, assessment and plan. In addition, continue Merrem and PMD has added Zithromax for patient with probable cardiogenic shock with SIRS, R/O HCAP. Blood cx are negative and we can d/c Mycamine. OVerall prognosis is poor. Discussed with Dr. Fernandes.
[2018-06-20] MEDS: Digoxin 125 mcg (0.125 mg) Tab PO SCH (14:56)
--- NOTE | 2018-06-20 15:29 | PN ---
DATE: 06/20/2018 REASON FOR CONSULTATION: Followup hypotension, cardiomyopathy, admitted with possible sepsis, septic shock versus cardiogenic shock. SUBJECTIVE: The patient is much awake and alert, talks, now is recalling the events. OBJECTIVE: GENERAL: Not in apparent distress, on face mask, relatively stable. VITAL SIGNS: Temperature afebrile, heart rate 91, and blood pressure 106/81. HEENT: PERRLA. Extraocular muscles intact. NECK: Supple. No carotid bruit or thyromegaly. CHEST: Clear to auscultation. HEART: S1 and S2 regular. ABDOMEN: Soft. EXTREMITIES: Clubbing and cyanosis, negative. LABORATORY DATA: WBC 18.7, hemoglobin 10.7, hematocrit 37.4, and platelet count 207. Chemistry shows sodium 144, potassium 4.2, chloride 107, carbon dioxide 33, and anion gap of 9. BUN 24 and creatinine is 1.1. Procalcitonin 40.61 significantly elevated. IMPRESSION: A 52-year-old female with past medical history significant for nonischemic cardiomyopathy, history of congestive heart, ejection fraction of 15%, status post automatic implantable cardioverter defibrillator, history of adrenal insufficiency, history of atrial fibrillation, paroxysmal on Coumadin, history of cerebrovascular accident, there is some residual weakness, anxiety disorder, depression, history of transplant list at [facility] being followed. History of bilateral pulmonary embolism, history of fungemia at one point, history of automatic implantable cardioverter defibrillator, history of replacement of automatic implantable cardioverter defibrillator for endocarditis, now the automatic implantable cardioverter defibrillator is on the left axillary unipolar and dual-chamber pacemaker in the chest, admitted yesterday with difficulty breathing, acute decompensated congestive heart failure, pulmonary edema, congestive heart failure secondary to systolic dysfunction, cannot rule out underlying sepsis. The patient was initially started Levophed and given intravenous Lasix, has been restarted milrinone. The patient is hemodynamically stable, off Levophed. RECOMMENDATIONS: Continue IV Lasix, decrease to 40 b.i.d., continue milrinone, continue broad-spectrum antibiotics. Follow for the result of blood culture. On admission, procalcitonin was 40.61, interpretation of this procalcitonin more than concentration to represent high risk of severe sepsis or septic shock, possible the patient may be in septic shock yesterday, now, it looks like improving. In addition, patient may be in cardiogenic shock because of low output state. So as mentioned, continue Lasix. We will change to b.i.d. from tomorrow. Continue low-dose lisinopril as blood pressure is tolerated. We will put low dose off Coreg as blood pressure is tolerated. I will resume back digoxin as well as Coreg and transfer her out to the unit. We will follow with you. We will follow PT and INR, INR today is 3.77. We will hold Coumadin till the INR gets below 2.5, possibly elevation secondary to sepsis and secondary to shock. We will follow with you, aggressively monitor electrolytes. We will get the digoxin level in the morning. Thank you Dr. Fernandes for opportunity in taking care of the patient, Stephanie Siddiqui. Awaiting for computer to update, so we can go to the next dictation. We will repeat PT and INR tomorrow. Roberto Jones MD
--- NOTE | 2018-06-20 16:37 | PN ---
DATE: 06/20/2018 SUBJECTIVE: The patient is 52 years old seen and examined, sitting in chair, complaining of feeling short of breath, complaining of feeling dizzy. No fever or chills. No nausea or vomiting. PHYSICAL EXAMINATION: VITAL SIGNS: She is afebrile. Pulse 85, respirations 23, and blood pressure 118/62. LUNGS: Bilateral soft crackles, most pronounced freely. HEART: S1 and S2 audible. ABDOMEN: Soft and nontender. No rebound. No guarding. NEUROLOGIC: The patient is awake, alert and oriented, able to communicate. EXTREMITIES: Bilateral leg +1 edema. LABORATORY DATA: WBC is 18.3, hemoglobin 10.7, hematocrit 37.4, platelet . PT is 44.6, INR 3.77. Chemistry: Sodium 144, potassium 4.2, chloride 107, CO2 of 33, BUN 24, creatinine 1.1, blood sugar of 109. LDH is 773. BNP is 11,000. Procalcitonin is 40. Blood cultures are negative. X-ray of the chest shows improvement in right lower lobe pneumonia, persistent right upper lobe airspace disease. ASSESSMENT AND PLAN: 1. Right upper lobe pneumonia and right lower lobe pneumonia. 2. Congestive heart failure. 3. Cardiomyopathy. 4. History of lupus. 5. Status post defibrillator placement. 6. Anxiety disorder. 7. 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 8. Chronic atrial fibrillation. PLAN: I will continue the patient on amiodarone and carvedilol. She is on digoxin. Continue nebulizer treatment. She is on Lasix 40 mg every 8 hours. The patient is on meropenem. We will continue on micafungin. I will followup her electrolytes. The patient takes Xanax at home, we will start her on as needed. I will followup electrolyte in a.m. Chalo Fernandes MD
[2018-06-20] MEDS: Benzocaine/Menthol (Cepacol) Lozenge MT PRN (21:19)
[2018-06-21] MEDS: Milrinone 20mg/100ml D5W 100 ML IV PRN ×2 (03:10→15:06)
[2018-06-21 06:57] LABS: BASO # 0.01 K/mm3 (0.0-2.0); BASO % 0.1 % (0.0-3.0); EOS % 0.1 % (1.5-5.0); GRAN # 10.72 (1.4-6.5); GRAN % 80.1 % (50.0-68.0); HEMOGLOBIN 9.2 g/dL (12.0-16.0); LYMPH # 1.8 (1.2-3.4); LYMPH % 13.6 % (22.0-35.0); MEAN CELL VOLUME 82.5 fl (80.0-105.0); MEAN CORPUSCULAR HEMOGLOBIN 23.7 pg (25.0-35.0); MEAN CORPUSCULAR HGB CONC 28.7 g/dl (31.0-37.0); MONO # 0.8 (0.1-0.6); MONO % 6.1 % (1.0-6.0); RBC 3.89 10^6/uL (3.5-6.1); RED CELL DISTRIBUTION WIDTH 17.9 % (11.5-14.5); WHITE BLOOD COUNT 13.4 10^3/uL (4.5-11.0)
[2018-06-21 07:01] LABS: INR 2.62; PROTHROMBIN TIME 30.7 SECONDS (9.4-12.5)
[2018-06-21 07:05] LABS: ALB/GLOB RATIO 0.9 (1.1-1.8); ALBUMIN 3.1 g/dL (3.0-4.8); ALT/SGPT 24 U/L (7-56); AST/SGOT 22 U/L (14-36); BLOOD UREA NITROGEN 27 mg/dL (7-21); CALCIUM 8.7 mg/dL (8.4-10.5); GFR NON-AFRICAN AMERICAN 53; HDL CHOLESTEROL 34 mg/dL (29-60)
[2018-06-21] MEDS: Oxycodone/Acetaminophen 10/325 mg Tab PO PRN ×2 (07:05→20:05)
[2018-06-21 07:16] LABS: LDL CHOLESTEROL 106 mg/dL (0-129)
[2018-06-21] MEDS: Meropenem IV 1 gm in NS 1 GM/50 ML BAG IVPB SCH ×2 (09:06→22:13)
[2018-06-21] MEDS: Azithromycin 500MG/NS 250ml 500 MG/250 ML BAG IVPB SCH (09:06)
[2018-06-21] MEDS ORDERED: Potassium Chloride 20 mEq ER Tab PO ONE (09:12)
--- NOTE | 2018-06-21 09:26 | CP.PCM.PN ---
<Jacob Us - Last Filed: 06/21/18 09:23> Subjective - Date & Time of Evaluation Date of Evaluation: 06/21/18 Time of Evaluation: 07:00 - Subjective Subjective: ID progress note Patient seen and examined. Patient with improved breathing. No fevers, chills, chest pain, shortness of breath. Objective - Vital Signs/Intake and Output Vital Signs (last 24 hours): Temp Pulse Resp BP Pulse Ox 97.7 F 80 18 131/74 94 L 06/21/18 07:00 06/21/18 09:05 06/21/18 07:00 06/21/18 09:05 06/21/18 07:00 Intake and Output: 06/21/18 06/21/18 06:59 18:59 Intake Total 510 Output Total 1300 Balance -790 - Medications Medications: Current Medications Alprazolam (Xanax) 0.25 mg PO BID PRN; Protocol PRN Reason: Anxiety Stop: 06/27/18 18:01 Last Admin: 06/20/18 17:43 Dose: 0.25 mg Amiodarone HCl (Cordarone) 200 mg PO DAILY [facility] Last Admin: 06/21/18 09:05 Dose: 200 mg Benzocaine/Menthol (Cepacol Sore Throat) 1 amber MT Q2H PRN PRN Reason: Sore Throat Last Admin: 06/20/18 21:19 Dose: 1 amber Carvedilol (Coreg) 3.125 mg PO BID [facility] Last Admin: 06/21/18 09:05 Dose: 3.125 mg Digoxin (Digoxin) 0.125 mg PO 1400 [facility] Last Admin: 06/20/18 14:56 Dose: 0.125 mg Famotidine (Pepcid) 20 mg PO BID [facility] Last Admin: 06/21/18 09:05 Dose: 20 mg Folic Acid (Folic Acid) 1 mg PO DAILY [facility] Last Admin: 06/21/18 09:04 Dose: 1 mg Furosemide (Lasix) 40 mg PO 0800,1400 [facility] Last Admin: 06/21/18 07:56 Dose: 40 mg Guaifenesin/Dextromethorphan (Robitussin Dm) 5 ml PO Q4H PRN PRN Reason: Cough Last Admin: 06/20/18 21:19 Dose: 5 ml Hydrocortisone Sodium Succinate (Solu-Cortef) 50 mg IVP Q12H [facility] Last Admin: 06/21/18 05:38 Dose: 50 mg Milrinone Lactate/Dextrose (Primacor 20mg/100ml D5w) 100 mls @ 9.731 mls/hr IV .[id number] PRN; Protocol PRN Reason: TITRATE PER MD ORDER Last Admin: 06/21/18 03:10 Dose: 0.375 mcg/kg/min, 9.731 mls/hr Azithromycin (Zithromax 500mg In Ns) 500 mg in 250 mls @ 167 mls/hr IVPB DAILY [facility]; Protocol Last Admin: 06/21/18 09:06 Dose: 167 mls/hr Meropenem (Merrem Iv 1 Gm Premix) 1 gm in 50 mls @ 100 mls/hr IVPB Q12 [facility]; Protocol Stop: 06/26/18 18:01 Last Admin: 06/21/18 09:06 Dose: 100 mls/hr Lisinopril (Zestril) 2.5 mg PO DAILY [facility] Last Admin: 06/21/18 09:04 Dose: 2.5 mg Loratadine (Claritin) 10 mg PO DAILY [facility] Last Admin: 06/21/18 09:06 Dose: 10 mg Oxycodone/Acetaminophen (Percocet 10/325 Mg Tab) 1 tab PO BID PRN PRN Reason: Pain, moderate (4-7) Last Admin: 06/21/18 07:05 Dose: 1 tab Sodium Chloride ([place] Nasal [place]) 0 ml NS BID PRN PRN Reason: Nasal congestion Spironolactone (Aldactone) 25 mg PO DAILY [facility] Warfarin Sodium (Coumadin) 2 mg PO 1800 [facility]; Protocol - Labs Labs: 06/21/18 06:30 06/21/18 06:30 PT 30.7 SECONDS (9.4-12.5) H 06/21/18 06:30 INR 2.62 06/21/18 06:30 APTT 48.5 Seconds (25.1-36.5) H 06/20/18 07:30 - Constitutional Appears: Non-toxic, No Acute Distress - Head Exam Head Exam: ATRAUMATIC, NORMAL INSPECTION, NORMOCEPHALIC - ENT Exam ENT Exam: Mucous Membranes Moist - Respiratory Exam Respiratory Exam: Decreased Breath Sounds, Rales (Mild b/l ), NORMAL BREATHING PATTERN. absent: Rhonchi, Wheezes - Cardiovascular Exam Cardiovascular Exam: RRR, +S1, +S2 - GI/Abdominal Exam GI & Abdominal Exam: Soft, Normal Bowel Sounds. absent: Tenderness - Extremities Exam Extremities Exam: Pedal Edema (Trace b/l) - Neurological Exam Neurological Exam: Alert, Awake, CN II-XII Intact, Oriented x3 - Psychiatric Exam Psychiatric exam: Normal Affect, Normal Mood - Skin Skin Exam: Intact, Normal Color, Warm Assessment and Plan - Assessment and Plan (Free Text) Plan: Cardiogenic shock with SIRS, resolved CHF exacerbation MAIKOL, resolved Hx of Adrenal insufficiency Hx of Ashley glabrata fungemia Hx of A-fib on Coumadin Hx of CHF with EF 15% Hx of AICD Hx of SLE Plan: Afebrile, leukocytosis Continue Merrem for 5-7 days Blood cultures are negative x 48 hours MRSA screen negative Procalcitonin elevated Influenza and Mycoplasma negative Strep pneumo pending Bhakin, PGY-3 <Luis Metz S - Last Filed: 06/21/18 20:46> Objective - Vital Signs/Intake and Output Vital Signs (last 24 hours): Temp Pulse Resp BP Pulse Ox 97.7 F 71 18 113/50 L 94 L 06/21/18 12:11 06/21/18 18:00 06/21/18 07:00 06/21/18 17:15 06/21/18 07:00 Intake and Output: 06/21/18 06/22/18 18:59 06:59 Intake Total 1470 Output Total 700 Balance 770 - Medications Medications: Current Medications Albuterol/Ipratropium (Duoneb 3 Mg/0.5 Mg (3 Ml) Ud) 3 ml IH [id number] [facility] Last Admin: 06/21/18 15:58 Dose: 3 ml Alprazolam (Xanax) 0.25 mg PO BID PRN; Protocol PRN Reason: Anxiety Stop: 06/27/18 18:01 Last Admin: 06/20/18 17:43 Dose: 0.25 mg Amiodarone HCl (Cordarone) 200 mg PO DAILY [facility] Last Admin: 06/21/18 09:05 Dose: 200 mg Benzocaine/Menthol (Cepacol Sore Throat) 1 amber MT Q2H PRN PRN Reason: Sore Throat Last Admin: 06/20/18 21:19 Dose: 1 amber Carvedilol (Coreg) 3.125 mg PO BID [facility] Last Admin: 06/21/18 17:15 Dose: 3.125 mg Digoxin (Digoxin) 0.125 mg PO 1400 [facility] Last Admin: 06/21/18 14:58 Dose: 0.125 mg Famotidine (Pepcid) 20 mg PO BID [facility] Last Admin: 06/21/18 18:49 Dose: 20 mg Folic Acid (Folic Acid) 1 mg PO DAILY [facility] Last Admin: 06/21/18 09:04 Dose: 1 mg Furosemide (Lasix) 40 mg PO 0800,1400 [facility] Last Admin: 06/21/18 14:58 Dose: 40 mg Guaifenesin/Dextromethorphan (Robitussin Dm) 5 ml PO Q4H PRN PRN Reason: Cough Last Admin: 06/21/18 18:49 Dose: 5 ml Hydrocortisone Sodium Succinate (Solu-Cortef) 50 mg IVP Q12H [facility] Last Admin: 06/21/18 17:45 Dose: 50 mg Milrinone Lactate/Dextrose (Primacor 20mg/100ml D5w) 100 mls @ 9.731 mls/hr IV .[id number] PRN; Protocol PRN Reason: TITRATE PER MD ORDER Last Admin: 06/21/18 15:06 Dose: 0.375 mcg/kg/min, 9.731 mls/hr Azithromycin (Zithromax 500mg In Ns) 500 mg in 250 mls @ 167 mls/hr IVPB DAILY [facility]; Protocol Last Admin: 06/21/18 09:06 Dose: 167 mls/hr Meropenem (Merrem Iv 1 Gm Premix) 1 gm in 50 mls @ 100 mls/hr IVPB Q12 [facility]; Protocol Stop: 06/26/18 18:01 Last Admin: 06/21/18 09:06 Dose: 100 mls/hr Micafungin Sodium 100 mg/ (Sodium Chloride) 100 mls @ 100 mls/hr IV DAILY [facility]; Protocol Stop: 06/29/18 10:01 Lisinopril (Zestril) 2.5 mg PO DAILY [facility] Last Admin: 06/21/18 09:04 Dose: 2.5 mg Loratadine (Claritin) 10 mg PO DAILY [facility] Last Admin: 06/21/18 09:06 Dose: 10 mg Oxycodone/Acetaminophen (Percocet 10/325 Mg Tab) 1 tab PO BID PRN PRN Reason: Pain, moderate (4-7) Last Admin: 06/21/18 20:05 Dose: 1 tab Sodium Chloride (Frazer Nasal [place]) 0 ml NS BID PRN PRN Reason: Nasal congestion Spironolactone (Aldactone) 25 mg PO DAILY [facility] Last Admin: 06/21/18 09:27 Dose: 25 mg Warfarin Sodium (Coumadin) 2 mg PO 1800 [facility]; Protocol Last Admin: 06/21/18 17:16 Dose: 2 mg - Labs Labs: 06/21/18 06:30 06/21/18 06:30 PT 30.7 SECONDS (9.4-12.5) H 06/21/18 06:30 INR 2.62 06/21/18 06:30 APTT 48.5 Seconds (25.1-36.5) H 06/20/18 07:30 Assessment and Plan - Assessment and Plan (Free Text) Plan: Infectious diseases Attending Physician Attestation Patient seen and examined, discussed with medical radiation therapist. I have reviewed the patient's history of present illness, past medical, social, personal and family histories, pertinent physical exam findings, course so far in this hospital admission, pertinent laboratory and imaging results. I agree with the above findings, assessment and plan. In addition, continue Merrem and Zithromax for patient with cardiogenic shock with SIRS, cannot rule out HCAP. Patient now with candidemia, with history of C. glabrata fungemia S/P line removal in March 2018. She has had recurrent fungemia since August of 2017. This is suspicious for AICD infection - will get 2D echo but would recommend RANJEET if echo is negative for vegetations.
--- NOTE | 2018-06-21 13:30 | PN ---
DATE: 06/21/2018 REASON FOR CONSULTATION AND FOLLOWUP: Hypotension, cardiomyopathy, admitted with possible sepsis, septic shock versus cardiogenic shock, acute decompensated congestive heart failure. SUBJECTIVE: The patient feels a lot better, wanted to go home. OBJECTIVE: GENERAL: Not in apparent distress. VITAL SIGNS: Temperature afebrile, heart rate 70, and blood pressure 130/74. HEENT: PERRLA. Extraocular muscles intact. NECK: Supple. No carotid bruit or thyromegaly. CHEST: Clear to auscultation. HEART: S1 and S2 regular. ABDOMEN: Soft. EXTREMITIES: Clubbing and cyanosis, negative. LABORATORY DATA: WBC 13.4, hemoglobin 9.2, hematocrit 32.1, and platelet count 212. Chemistry shows sodium 140, potassium 3.7, chloride 106, carbon dioxide 34, anion gap of 7. BUN 23 and creatinine is 1.1. Blood culture, so far, 48 hours, negative. IMPRESSION: A 52-year-old female with past medical history significant for cardiomyopathy, severely decreased left ventricular function, status post automatic implantable cardioverter defibrillator, status post infective endocarditis, status post removal of automatic implantable cardioverter defibrillator, status post placement of automatic implantable cardioverter defibrillator left axillary and pacemaker on the right side, admitted with acute decompensated congestive heart failure as well as sepsis, pulmonary edema, hypotension, requiring Levophed, antibiotic. Now, the patient is off Levophed, on milrinone, awake and alert, hemodynamically stable. RECOMMENDATIONS: Continue amiodarone for paroxysmal atrial fibrillation. Continue Coreg. Continue digoxin, continue Lasix, change to oral. Continue milrinone. The patient on admitting, INR was elevated, Coumadin on hold. So, we will resume back on Coumadin at 2 mg from today. Discharge pending transfer to telemetry. dope worker for discharge pending. Upon discharge, the patient will be followed up with Dr. Rubalcava. History of paroxysmal atrial fibrillation, on anticoagulation. Lasix has been changed to oral, Coreg has been started, amiodarone has been started and digoxin has been started. We will start 2 mg of Coumadin from today as INR is 2.23. As mentioned, public health social worker for discharge pending. We will repeat blood workup in the morning. The patient is cleared from Cardiology point of view to be discharged. Continue baseline medications. We will supplement potassium. Today potassium is 3.7. We will put spironolactone as well on a regular basis. Thank you Dr. Fernandes, for providing us the opportunity in taking care of the patient, Stephanie Siddiqui. Roberto Jones MD
[2018-06-21] MEDS: Digoxin 125 mcg (0.125 mg) Tab PO SCH (14:58)
[2018-06-21] MEDS: Albuterol-Ipratrop 3 mg / 0.5 (3 ml) UD IH SCH ×2 (15:58→21:43)
[2018-06-21] MEDS ORDERED: Micafungin 100 MG in Sodium Chloride 0.9% 100 ML IV SCH (16:00)
--- NOTE | 2018-06-21 17:12 | PN ---
DATE: 06/21/2018 SUBJECTIVE: The patient is 52 years old, seen and examined. Doing well, better than yesterday. Did a lot better with Xanax. PHYSICAL EXAMINATION: VITAL SIGNS: She is afebrile, pulse 80, respirations 18, blood pressure 131/74. LUNGS: Bilateral fair air flow. Few soft crackles at the bases. HEART: S1 and S2 audible. ABDOMEN: Soft, nontender. No rebound. No guarding. NEUROLOGICAL: The patient is awake, alert, oriented and communicative. LABORATORY DATA: WBC is 13.4, hemoglobin 9.2, hematocrit 32.1, platelets of 212. PT is 30.7, INR 2.62. Chemistry: Sodium 143, potassium 3.7, chloride 106, CO2 of 36, BUN 27, creatinine 1.1, blood sugar of 101. TSH is 0.03. Flu test is negative. Mycoplasma pneumonia IgM is negative. ASSESSMENT: 1. Congestive heart failure exacerbation. 2. Cardiomyopathy. 3. Right upper lobe pneumonia. 4. Right lower lobe pneumonia. 5. History of lupus. 6. Chronic atrial fibrillation. PLAN: The patient is currently on Primacor drip. She is on IV antibiotics. She is on Zithromax. She is on meropenem. She is on Lasix 40 every 12 hours, we will continue that. Follow up her electrolytes and continue on Coumadin of 2 mg daily. The patient can be transferred to telemetry. Chalo Fernandes MD
[2018-06-21] MEDS: guaiFENesin DM 100 mg-10 mg/5 ml UD PO PRN (18:49)
[2018-06-22] MEDS: Milrinone 20mg/100ml D5W 100 ML IV PRN ×3 (01:15→21:11)
[2018-06-22] MEDS: Albuterol-Ipratrop 3 mg / 0.5 (3 ml) UD IH SCH ×4 (03:30→20:05)
[2018-06-22 07:42] LABS: INR 1.8; PROTHROMBIN TIME 20.9 SECONDS (9.4-12.5)
[2018-06-22 07:47] LABS: BASO # 0.01 K/mm3 (0.0-2.0); BASO % 0.1 % (0.0-3.0); EOS % 0.2 % (1.5-5.0); GRAN # 6.72 (1.4-6.5); LYMPH # 1.8 (1.2-3.4); LYMPH % 19.3 % (22.0-35.0); MEAN CELL VOLUME 82.9 fl (80.0-105.0); MEAN CORPUSCULAR HEMOGLOBIN 23.3 pg (25.0-35.0); MEAN CORPUSCULAR HGB CONC 28.1 g/dl (31.0-37.0); MONO # 0.8 (0.1-0.6); MONO % 8.4 % (1.0-6.0); RBC 3.86 10^6/uL (3.5-6.1); RED CELL DISTRIBUTION WIDTH 17.7 % (11.5-14.5); WHITE BLOOD COUNT 9.3 10^3/uL (4.5-11.0)
[2018-06-22 07:51] LABS: BLOOD UREA NITROGEN 23 mg/dL (7-21); CALCIUM 8.6 mg/dL (8.4-10.5); GFR NON-AFRICAN AMERICAN > 60
[2018-06-22] MEDS: Meropenem IV 1 gm in NS 1 GM/50 ML BAG IVPB SCH ×2 (09:06→22:45)
[2018-06-22] MEDS: Azithromycin 500MG/NS 250ml 500 MG/250 ML BAG IVPB SCH (09:06)
[2018-06-22] MEDS: Micafungin 100 MG in Sodium Chloride 0.9% 100 ML IV SCH (09:07)
--- NOTE | 2018-06-22 09:44 | CP.PCM.PN ---
<Jacob Us - Last Filed: 06/22/18 12:42> Subjective - Date & Time of Evaluation Date of Evaluation: 06/22/18 Time of Evaluation: 07:00 - Subjective Subjective: ID Progress Note Patient seen and examined. No complaints, improvement in breathing. Denies chest pain, fever, chills. Objective - Vital Signs/Intake and Output Vital Signs (last 24 hours): Temp Pulse Resp BP Pulse Ox 98.5 F 85 18 123/69 97 06/22/18 04:00 06/22/18 09:05 06/21/18 23:50 06/22/18 09:05 06/21/18 23:50 Intake and Output: 06/22/18 06/22/18 06:59 18:59 Intake Total 508 Output Total 550 Balance -42 - Medications Medications: Current Medications Albuterol/Ipratropium (Duoneb 3 Mg/0.5 Mg (3 Ml) Ud) 3 ml IH [id number] [facility] Last Admin: 06/22/18 09:03 Dose: 3 ml Alprazolam (Xanax) 0.25 mg PO BID PRN; Protocol PRN Reason: Anxiety Stop: 06/27/18 18:01 Last Admin: 06/22/18 00:24 Dose: 0.25 mg Amiodarone HCl (Cordarone) 200 mg PO DAILY [facility] Last Admin: 06/22/18 09:04 Dose: 200 mg Benzocaine/Menthol (Cepacol Sore Throat) 1 amber MT Q2H PRN PRN Reason: Sore Throat Last Admin: 06/20/18 21:19 Dose: 1 amber Carvedilol (Coreg) 3.125 mg PO BID [facility] Last Admin: 06/22/18 09:05 Dose: 3.125 mg Digoxin (Digoxin) 0.125 mg PO 1400 [facility] Last Admin: 06/21/18 14:58 Dose: 0.125 mg Famotidine (Pepcid) 20 mg PO BID [facility] Last Admin: 06/22/18 09:06 Dose: 20 mg Folic Acid (Folic Acid) 1 mg PO DAILY [facility] Last Admin: 06/22/18 09:05 Dose: 1 mg Furosemide (Lasix) 40 mg PO 0800,1400 [facility] Last Admin: 06/22/18 07:58 Dose: 40 mg Guaifenesin/Dextromethorphan (Robitussin Dm) 5 ml PO Q4H PRN PRN Reason: Cough Last Admin: 06/21/18 18:49 Dose: 5 ml Hydrocortisone Sodium Succinate (Solu-Cortef) 50 mg IVP Q12H [facility] Last Admin: 06/22/18 05:34 Dose: 50 mg Milrinone Lactate/Dextrose (Primacor 20mg/100ml D5w) 100 mls @ 9.731 mls/hr IV .[id number] PRN; Protocol PRN Reason: TITRATE PER MD ORDER Last Admin: 06/22/18 01:15 Dose: 0.375 mcg/kg/min, 9.731 mls/hr Azithromycin (Zithromax 500mg In Ns) 500 mg in 250 mls @ 167 mls/hr IVPB DAILY [facility]; Protocol Last Admin: 06/22/18 09:06 Dose: 167 mls/hr Meropenem (Merrem Iv 1 Gm Premix) 1 gm in 50 mls @ 100 mls/hr IVPB Q12 [facility]; Protocol Stop: 06/26/18 18:01 Last Admin: 06/22/18 09:06 Dose: 100 mls/hr Micafungin Sodium 100 mg/ (Sodium Chloride) 100 mls @ 100 mls/hr IV DAILY [facility]; Protocol Stop: 06/29/18 10:01 Last Admin: 06/22/18 09:07 Dose: 100 mls/hr Lisinopril (Zestril) 2.5 mg PO DAILY [facility] Last Admin: 06/21/18 09:04 Dose: 2.5 mg Loratadine (Claritin) 10 mg PO DAILY [facility] Last Admin: 06/22/18 09:04 Dose: 10 mg Oxycodone/Acetaminophen (Percocet 10/325 Mg Tab) 1 tab PO BID PRN PRN Reason: Pain, moderate (4-7) Last Admin: 06/21/18 20:05 Dose: 1 tab Sodium Chloride ([place] Nasal Arma) 0 ml NS BID PRN PRN Reason: Nasal congestion Spironolactone (Aldactone) 25 mg PO DAILY [facility] Last Admin: 06/22/18 09:04 Dose: 25 mg Warfarin Sodium (Coumadin) 2 mg PO 1800 [facility]; Protocol Last Admin: 06/21/18 17:16 Dose: 2 mg - Labs Labs: 06/22/18 06:25 06/22/18 06:25 PT 20.9 SECONDS (9.4-12.5) H 06/22/18 06:25 INR 1.80 06/22/18 06:25 APTT 48.5 Seconds (25.1-36.5) H 06/20/18 07:30 - Constitutional Appears: Non-toxic, No Acute Distress - Head Exam Head Exam: ATRAUMATIC, NORMAL INSPECTION, NORMOCEPHALIC - ENT Exam ENT Exam: Mucous Membranes Moist - Respiratory Exam Respiratory Exam: Rhonchi (Improving), NORMAL BREATHING PATTERN. absent: Rales, Wheezes - Cardiovascular Exam Cardiovascular Exam: Irregular Rhythm, +S1, +S2 - GI/Abdominal Exam GI & Abdominal Exam: Soft, Normal Bowel Sounds. absent: Tenderness - Extremities Exam Extremities Exam: Pedal Edema (Trace) - Neurological Exam Neurological Exam: Alert, Awake, CN II-XII Intact, Oriented x3 - Psychiatric Exam Psychiatric exam: Normal Affect, Normal Mood - Skin Skin Exam: Intact, Normal Color, Warm Assessment and Plan - Assessment and Plan (Free Text) Plan: CHF exacerbation Cardiogenic shock with SIRS, resolved MAIKOL, resolved Hx of Adrenal insufficiency Hx of Ashley glabrata fungemia Hx of A-fib on Coumadin Hx of CHF with EF 15% Hx of AICD Hx of SLE Plan: Afebrile, no leukocytosis Continue Merrem for 7 days total Blood cultures show yeast Will restart Mycamine and obtain repeat blood cultures Obtain Optho consult TTE ordered. Consider RANJEET if negative MRSA screen negative Procalcitonin elevated Influenza and Mycoplasma negative Strep pneumo pending [place], PGY-3 <Luis Metz - Last Filed: 06/22/18 16:32> Objective - Vital Signs/Intake and Output Vital Signs (last 24 hours): Temp Pulse Resp BP Pulse Ox 98.5 F 78 21 112/65 100 06/22/18 04:00 06/22/18 14:00 06/22/18 10:40 06/22/18 14:25 06/22/18 10:40 Intake and Output: 06/22/18 06/22/18 06:59 18:59 Intake Total 508 100 Output Total 550 Balance -42 100 - Medications Medications: Current Medications Albuterol/Ipratropium (Duoneb 3 Mg/0.5 Mg (3 Ml) Ud) 3 ml IH [id number] [facility] Last Admin: 06/22/18 13:19 Dose: 3 ml Alprazolam (Xanax) 0.25 mg PO BID PRN; Protocol PRN Reason: Anxiety Stop: 06/27/18 18:01 Last Admin: 06/22/18 12:51 Dose: 0.25 mg Amiodarone HCl (Cordarone) 200 mg PO DAILY [facility] Last Admin: 06/22/18 09:04 Dose: 200 mg Benzocaine/Menthol (Cepacol Sore Throat) 1 amber MT Q2H PRN PRN Reason: Sore Throat Last Admin: 06/20/18 21:19 Dose: 1 amber Carvedilol (Coreg) 3.125 mg PO BID [facility] Last Admin: 06/22/18 09:05 Dose: 3.125 mg Digoxin (Digoxin) 0.125 mg PO 1400 [facility] Last Admin: 06/22/18 14:25 Dose: 0.125 mg Famotidine (Pepcid) 20 mg PO BID [facility] Last Admin: 06/22/18 09:06 Dose: 20 mg Folic Acid (Folic Acid) 1 mg PO DAILY [facility] Last Admin: 06/22/18 09:05 Dose: 1 mg Furosemide (Lasix) 40 mg PO 0800,1400 [facility] Last Admin: 06/22/18 14:25 Dose: 40 mg Guaifenesin/Dextromethorphan (Robitussin Dm) 5 ml PO Q4H PRN PRN Reason: Cough Last Admin: 06/21/18 18:49 Dose: 5 ml Hydrocortisone Sodium Succinate (Solu-Cortef) 50 mg IVP DAILY [facility] Milrinone Lactate/Dextrose (Primacor 20mg/100ml D5w) 100 mls @ 9.731 mls/hr IV .[id number] PRN; Protocol PRN Reason: TITRATE PER MD ORDER Last Admin: 06/22/18 12:18 Dose: 0.375 mcg/kg/min, 9.731 mls/hr Azithromycin (Zithromax 500mg In Ns) 500 mg in 250 mls @ 167 mls/hr IVPB DAILY [facility]; Protocol Last Admin: 06/22/18 09:06 Dose: 167 mls/hr Meropenem (Merrem Iv 1 Gm Premix) 1 gm in 50 mls @ 100 mls/hr IVPB Q12 [facility]; Protocol Stop: 06/26/18 18:01 Last Admin: 06/22/18 09:06 Dose: 100 mls/hr Micafungin Sodium 100 mg/ (Sodium Chloride) 100 mls @ 100 mls/hr IV DAILY [facility]; Protocol Stop: 06/29/18 10:01 Last Admin: 06/22/18 09:07 Dose: 100 mls/hr Lisinopril (Zestril) 2.5 mg PO DAILY [facility] Last Admin: 06/22/18 09:40 Dose: 2.5 mg Loratadine (Claritin) 10 mg PO DAILY [facility] Last Admin: 06/22/18 09:04 Dose: 10 mg Oxycodone/Acetaminophen (Percocet 10/325 Mg Tab) 1 tab PO BID PRN PRN Reason: Pain, moderate (4-7) Last Admin: 06/21/18 20:05 Dose: 1 tab Sodium Chloride ([place] Nasal Arma) 0 ml NS BID PRN PRN Reason: Nasal congestion Spironolactone (Aldactone) 25 mg PO DAILY [facility] Last Admin: 06/22/18 09:04 Dose: 25 mg Warfarin Sodium (Coumadin) 4 mg PO 1800 [facility]; Protocol - Labs Labs: 06/22/18 06:25 06/22/18 06:25 PT 20.9 SECONDS (9.4-12.5) H 06/22/18 06:25 INR 1.80 06/22/18 06:25 APTT 48.5 Seconds (25.1-36.5) H 06/20/18 07:30 Assessment and Plan - Assessment and Plan (Free Text) Plan: Infectious diseases Attending Physician Attestation Patient seen and examined, discussed with medical manager. I have reviewed the patient's history of present illness, past medical, social, personal and family histories, pertinent physical exam findings, course so far in this hospital admission, pertinent laboratory and imaging results. I agree with the above findings, assessment and plan. In addition, continue Merrem and Zithromax for pa tient with cardiogenic shock with SIRS, cannot rule out HCAP. Patient now with candidemia, with history of C. glabrata fungemia S/P line removal in March 2018. She has had recurrent fungemia since August of 2017. This is suspicious for AICD infection - will follow 2D echo but would recommend RANJEET if echo is negative for vegetations. Follow up repeat blood cx.
[2018-06-22] MEDS: Digoxin 125 mcg (0.125 mg) Tab PO SCH (14:25)
[2018-06-22] MEDS ORDERED: Potassium Chloride 20 mEq ER Tab PO ONE (15:22)
--- NOTE | 2018-06-22 15:28 | PN ---
DATE: 06/22/2018 SUBJECTIVE: Patient is 52-year-old, seen and examined, sitting in chair, seems to be comfortable, scanty cough, no shortness of breath. PHYSICAL EXAMINATION VITAL SIGNS: She is afebrile, pulse 78, respirations 21, and blood pressure 161/57. LUNGS: Bilateral fair air flow, significantly improved crackles in the lower lung region. HEART: S1 and S2 audible. ABDOMEN: Soft, nontender, no rebound, no guarding. NEUROLOGIC: She is awake, alert, oriented and communicative. Eating well. EXTREMITIES: Bilateral leg +1 edema. LABORATORY DATA: WBC 9.3, hemoglobin 9, hematocrit 32 and platelets 207. PT is 20.9 and INR 1.80. Chemistry; sodium 142, potassium 3.6, chloride 107, CO2 of 33, BUN 23, creatinine 0.9, blood sugar of 101. Blood positive for yeast and second bottle is negative. ASSESSMENT AND PLAN: 1. Fungemia. 2. Right upper lobe infiltrate. 3. Right lower lobe infiltrate. 4. Congestive cardiomyopathy. 5. History of lupus. 6. Congestive heart failure. Currently, patient is on nebulizer treatment. She is on spironolactone. She is on amiodarone and carvedilol. She is on Coumadin. We will increase her dose to 4 mg today. She is subtherapeutic. We will continue to monitor her inputs and outputs. Currently, she on IV diuretics. She is on micafungin. We will taper down her steroids. We will monitor her CBC, electrolytes and PT/INR in a.m. Chalo Fernandes MD
--- NOTE | 2018-06-22 20:56 | PN ---
DATE: 06/22/2018 REASON FOR CONSULTATION: Followup, hypotension, cardiomyopathy, admitted with possible sepsis, septic shock, acute decompensated congestive heart failure. OBJECTIVE: GENERAL: Not in apparent distress. Feels a lot better. Wanted to go home. PHYSICAL EXAMINATION: As follows: VITAL SIGNS: Temperature afebrile, heart rate 70, blood pressure 112/65. HEENT: PERRLA. Extraocular muscles intact. NECK: Supple. No carotid bruit. No thyromegaly. CHEST: Clear to auscultation. HEART: S1 and S2 regular. ABDOMEN: Soft. EXTREMITIES: Clubbing and cyanosis negative. LABORATORY DATA: Blood workup as follows: WBC 9.8, hemoglobin 9, hematocrit 32, platelet count 207. Chemistry showed sodium 140, potassium 3.3, chloride 107, carbon dioxide of 33, anion gap of 6, BUN 23, creatinine 0.9. IMPRESSION: A 52-year-old female with past medical history significant for systemic lupus erythematosus, nonischemic cardiomyopathy, status post defibrillator, status post removal of defibrillator, endocarditis, status post replaced defibrillator in left axillary area, history of deep vein thrombosis, history of pulmonary embolism, history of congestive heart failure, history of paroxysmal atrial fibrillation. On home milrinone. Admitted with septic shock versus cardiogenic shock, acute decompensated congestive heart failure, pulmonary edema. The patient was treated with intravenous Levophed and then switched over to milrinone. Now, the patient continued diuretics orally. History of paroxysmal atrial fibrillation, on anticoagulation as well as amiodarone. On admission, PT and INR were elevated, supratherapeutic. started back, yesterday gave 2 mg. Today, INR is 1.8. We will go back to 3 mg of amiodarone. Actually, increased per Dr. Fernandes to 4 mg. Discharge pending. Transferred from the telemetry to the floor. We will follow with you. We will supplement potassium. Today, potassium is 3.6. We will give K-Dur now because of low potassium. Thank you Dr. Fernandes for providing the opportunity in taking care of the patient Karan Brown. Upon discharge, the patient will be followed up by Dr. Kahn. Roberto Jones MD [facility] # [id number]
[2018-06-22] MEDS: guaiFENesin DM 100 mg-10 mg/5 ml UD PO PRN (22:46)
[2018-06-22] MEDS: Oxycodone/Acetaminophen 10/325 mg Tab PO PRN (22:46)
[2018-06-22] MEDS: Benzocaine/Menthol (Cepacol) Lozenge MT PRN (22:56)
[2018-06-23] MEDS: Albuterol-Ipratrop 3 mg / 0.5 (3 ml) UD IH SCH ×3 (02:30→13:19)
[2018-06-23] MEDS: Milrinone 20mg/100ml D5W 100 ML IV PRN (06:24)
[2018-06-23 07:03] LABS: INR 1.9; PROTHROMBIN TIME 22.1 SECONDS (9.4-12.5)
[2018-06-23 07:14] LABS: ALB/GLOB RATIO 0.9 (1.1-1.8); ALT/SGPT 25 U/L (7-56); AST/SGOT 18 U/L (14-36); BLOOD UREA NITROGEN 21 mg/dL (7-21); CALCIUM 8.4 mg/dL (8.4-10.5); GFR NON-AFRICAN AMERICAN > 60
[2018-06-23] MEDS: Meropenem IV 1 gm in NS 1 GM/50 ML BAG IVPB SCH ×2 (09:38→21:14)
[2018-06-23] MEDS: Micafungin 100 MG in Sodium Chloride 0.9% 100 ML IV SCH (09:39)
[2018-06-23] MEDS: Azithromycin 500MG/NS 250ml 500 MG/250 ML BAG IVPB SCH (09:43)
--- NOTE | 2018-06-23 10:56 | CP.PCM.PN ---
<Jacob Us - Last Filed: 06/23/18 13:58> Subjective - Date & Time of Evaluation Date of Evaluation: 06/23/18 Time of Evaluation: 07:15 - Subjective Subjective: ID Progress Note Patient seen and examined. Patient states she feels well. No acute events overnight. Denies chest pain, shortness of breath, fever, chills. Objective - Vital Signs/Intake and Output Vital Signs (last 24 hours): Temp Pulse Resp BP Pulse Ox 98.3 F 67 23 110/66 97 06/23/18 04:00 06/23/18 06:24 06/23/18 02:20 06/23/18 08:04 06/23/18 02:20 Intake and Output: 06/23/18 06/23/18 06:59 18:59 Intake Total 608 Output Total 650 Balance -42 - Medications Medications: Current Medications Albuterol/Ipratropium (Duoneb 3 Mg/0.5 Mg (3 Ml) Ud) 3 ml IH [id number] [facility] Last Admin: 06/23/18 07:26 Dose: 3 ml Alprazolam (Xanax) 0.25 mg PO BID PRN; Protocol PRN Reason: Anxiety Stop: 06/27/18 18:01 Last Admin: 06/23/18 03:14 Dose: 0.25 mg Amiodarone HCl (Cordarone) 200 mg PO DAILY [facility] Last Admin: 06/23/18 09:37 Dose: 200 mg Benzocaine/Menthol (Cepacol Sore Throat) 1 amber MT Q2H PRN PRN Reason: Sore Throat Last Admin: 06/22/18 22:56 Dose: 1 amber Carvedilol (Coreg) 3.125 mg PO BID [facility] Last Admin: 06/23/18 09:38 Dose: 3.125 mg Digoxin (Digoxin) 0.125 mg PO 1400 [facility] Last Admin: 06/22/18 14:25 Dose: 0.125 mg Famotidine (Pepcid) 20 mg PO BID [facility] Last Admin: 06/23/18 09:40 Dose: 20 mg Folic Acid (Folic Acid) 1 mg PO DAILY [facility] Last Admin: 06/23/18 09:38 Dose: 1 mg Furosemide (Lasix) 40 mg PO 0800,1400 [facility] Last Admin: 01/18/19 08:04 Dose: 40 mg Guaifenesin/Dextromethorphan (Robitussin Dm) 5 ml PO Q4H PRN PRN Reason: Cough Last Admin: 06/22/18 22:46 Dose: 5 ml Hydrocortisone Sodium Succinate (Solu-Cortef) 50 mg IVP DAILY [facility] Last Admin: 06/23/18 09:41 Dose: 50 mg Milrinone Lactate/Dextrose (Primacor 20mg/100ml D5w) 100 mls @ 9.731 mls/hr IV .[id number] PRN; Protocol PRN Reason: TITRATE PER MD ORDER Last Admin: 06/23/18 06:24 Dose: 0.375 mcg/kg/min, 9.731 mls/hr Azithromycin (Zithromax 500mg In Ns) 500 mg in 250 mls @ 167 mls/hr IVPB DAILY [facility]; Protocol Last Admin: 06/23/18 09:43 Dose: 167 mls/hr Meropenem (Merrem Iv 1 Gm Premix) 1 gm in 50 mls @ 100 mls/hr IVPB Q12 [facility]; Protocol Stop: 06/26/18 18:01 Last Admin: 06/23/18 09:38 Dose: 100 mls/hr Micafungin Sodium 100 mg/ (Sodium Chloride) 100 mls @ 100 mls/hr IV DAILY [facility]; Protocol Stop: 06/29/18 10:01 Last Admin: 06/23/18 09:39 Dose: 100 mls/hr Lisinopril (Zestril) 2.5 mg PO DAILY [facility] Last Admin: 06/23/18 09:43 Dose: 2.5 mg Loratadine (Claritin) 10 mg PO DAILY [facility] Last Admin: 06/23/18 09:37 Dose: 10 mg Oxycodone/Acetaminophen (Percocet 10/325 Mg Tab) 1 tab PO BID PRN PRN Reason: Pain, moderate (4-7) Last Admin: 06/22/18 22:46 Dose: 1 tab Sodium Chloride ([place] Nasal [place]) 0 ml NS BID PRN PRN Reason: Nasal congestion Spironolactone (Aldactone) 25 mg PO DAILY [facility] Last Admin: 06/23/18 09:37 Dose: 25 mg Warfarin Sodium (Coumadin) 4 mg PO 1800 [facility]; Protocol Last Admin: 06/22/18 17:39 Dose: 4 mg - Labs Labs: 06/22/18 06:25 06/23/18 06:40 PT 22.1 SECONDS (9.4-12.5) H 06/23/18 06:40 INR 1.90 06/23/18 06:40 APTT 48.5 Seconds (25.1-36.5) H 06/20/18 07:30 - Constitutional Appears: Non-toxic, No Acute Distress - Head Exam Head Exam: ATRAUMATIC, NORMAL INSPECTION, NORMOCEPHALIC - ENT Exam ENT Exam: Mucous Membranes Moist - Respiratory Exam Respiratory Exam: Clear to Ausculation Bilateral, NORMAL BREATHING PATTERN. absent: Rales, Rhonchi, Wheezes - Cardiovascular Exam Cardiovascular Exam: Irregular Rhythm, +S1, +S2 - GI/Abdominal Exam GI & Abdominal Exam: Soft, Normal Bowel Sounds. absent: Tenderness - Extremities Exam Extremities Exam: Pedal Edema (Trace b/l) - Neurological Exam Neurological Exam: Alert, Awake, CN II-XII Intact, Oriented x3 - Psychiatric Exam Psychiatric exam: Normal Affect, Normal Mood - Skin Skin Exam: Intact, Normal Color, Warm Assessment and Plan - Assessment and Plan (Free Text) Plan: CHF exacerbation Cardiogenic shock with SIRS, resolved MAIKOL, resolved Hx of Adrenal insufficiency Hx of Ashley glabrata fungemia Hx of A-fib on Coumadin Hx of CHF with EF 15% Hx of AICD Hx of SLE Plan: Afebrile Continue Merrem for 7 days total Blood cultures showed yeast initially. Repeat blood cultures negative after receiving mycamine Ophthalmology consult to rule out endopthalmitis MRSA screen negative Procalcitonin elevated Influenza and Mycoplasma negative Strep pneumo pending [place], PGY-3 <Luis Metz - Last Filed: 06/23/18 14:01> Objective - Vital Signs/Intake and Output Vital Signs (last 24 hours): Temp Pulse Resp BP Pulse Ox 98.3 F 67 23 104/86 97 06/23/18 04:00 06/23/18 06:24 06/23/18 02:20 06/23/18 13:12 06/23/18 02:20 Intake and Output: 06/23/18 06/23/18 06:59 18:59 Intake Total 608 400 Output Total 650 500 Balance -42 -100 - Medications Medications: Current Medications Albuterol/Ipratropium (Duoneb 3 Mg/0.5 Mg (3 Ml) Ud) 3 ml IH [id number] [facility] Last Admin: 06/23/18 13:19 Dose: 3 ml Alprazolam (Xanax) 0.25 mg PO BID PRN; Protocol PRN Reason: Anxiety Stop: 06/27/18 18:01 Last Admin: 06/23/18 03:14 Dose: 0.25 mg Amiodarone HCl (Cordarone) 200 mg PO DAILY [facility] Last Admin: 06/23/18 09:37 Dose: 200 mg Azithromycin (Zithromax) 500 mg PO DAILY [facility] Stop: 06/25/18 10:01 Benzocaine/Menthol (Cepacol Sore Throat) 1 amber MT Q2H PRN PRN Reason: Sore Throat Last Admin: 06/22/18 22:56 Dose: 1 amber Carvedilol (Coreg) 3.125 mg PO BID [facility] Last Admin: 06/23/18 09:38 Dose: 3.125 mg Digoxin (Digoxin) 0.125 mg PO 1400 [facility] Last Admin: 06/23/18 13:11 Dose: 0.125 mg Famotidine (Pepcid) 20 mg PO BID [facility] Last Admin: 06/23/18 09:40 Dose: 20 mg Folic Acid (Folic Acid) 1 mg PO DAILY [facility] Last Admin: 06/23/18 09:38 Dose: 1 mg Furosemide (Lasix) 40 mg PO 0800,1400 [facility] Last Admin: 06/23/18 13:12 Dose: 40 mg Guaifenesin/Dextromethorphan (Robitussin Dm) 5 ml PO Q4H PRN PRN Reason: Cough Last Admin: 06/22/18 22:46 Dose: 5 ml Hydrocortisone Sodium Succinate (Solu-Cortef) 50 mg IVP DAILY [facility] Last Admin: 06/23/18 09:41 Dose: 50 mg Milrinone Lactate/Dextrose (Primacor 20mg/100ml D5w) 100 mls @ 9.731 mls/hr IV .[id number] PRN; Protocol PRN Reason: TITRATE PER MD ORDER Last Admin: 06/23/18 06:24 Dose: 0.375 mcg/kg/min, 9.731 mls/hr Meropenem (Merrem Iv 1 Gm Premix) 1 gm in 50 mls @ 100 mls/hr IVPB Q12 [facility]; Protocol Stop: 06/26/18 18:01 Last Admin: 06/23/18 09:38 Dose: 100 mls/hr Micafungin Sodium 100 mg/ (Sodium Chloride) 100 mls @ 100 mls/hr IV DAILY [facility]; Protocol Stop: 06/29/18 10:01 Last Admin: 06/23/18 09:39 Dose: 100 mls/hr Lisinopril (Zestril) 2.5 mg PO DAILY [facility] Last Admin: 06/23/18 09:43 Dose: 2.5 mg Loratadine (Claritin) 10 mg PO DAILY [facility] Last Admin: 06/23/18 09:37 Dose: 10 mg Sodium Chloride ([place] Nasal [place]) 0 ml NS BID PRN PRN Reason: Nasal congestion Spironolactone (Aldactone) 25 mg PO DAILY [facility] Last Admin: 06/23/18 09:37 Dose: 25 mg Warfarin Sodium (Coumadin) 3 mg PO 1800 [facility]; Protocol - Labs Labs: 06/22/18 06:25 06/23/18 06:40 PT 22.1 SECONDS (9.4-12.5) H 06/23/18 06:40 INR 1.90 06/23/18 06:40 APTT 48.5 Seconds (25.1-36.5) H 06/20/18 07:30 Assessment and Plan - Assessment and Plan (Free Text) Plan: Infectious diseases Attending Physician Attestation Patient seen and examined, discussed with medical secretary. I have reviewed the patient's history of present illness, past medical, social, personal and family histories, pertinent physical exam findings, course so far in this hospital admission, pertinent laboratory and imaging results. I agree with the above findings, assessment and plan. In addition, continue Merrem and Zithromax for patient with cardiogenic shock with SIRS, cannot rule out HCAP. Patient now with candidemia, with history of C. glabrata fungemia S/P line removal in March 2018. She has had recurrent fungemia since August of 2017. This is suspicious for AICD infection - will follow up 2D echo but would recommend RANJEET if echo is negative for vegetations. Discussed this with Dr. Fernandes. Follow up repeat blood cx.
[2018-06-23] MEDS: Digoxin 125 mcg (0.125 mg) Tab PO SCH (13:11)
[2018-06-23] MEDS: Benzocaine/Menthol (Cepacol) Lozenge MT PRN (14:33)
[2018-06-23] MEDS: guaiFENesin DM 100 mg-10 mg/5 ml UD PO PRN (14:35)
--- NOTE | 2018-06-23 16:52 | PN ---
DATE: 06/23/2018 REASON FOR CONSULTATION: Followup, hypotension, cardiomyopathy, admitted with possible sepsis, septic shock, acute decompensated congestive heart failure. SUBJECTIVE: The patient denies any chest pain, shortness of breath or any palpitation. PHYSICAL EXAMINATION: As follows: GENERAL: Not in apparent distress. Lying flat in the bed. Awaiting to be transferred to telemetry. VITAL SIGNS: Temperature afebrile, heart rate 69, and blood pressure 110/66. HEENT: PERRLA. Extraocular muscles intact. NECK: Supple. No carotid bruit. No thyromegaly. CHEST: Clear to auscultation. HEART: S1 and S2 regular. ABDOMEN: Soft. EXTREMITIES: Clubbing and cyanosis negative. LABORATORY DATA: Blood workup: WBC 9.3, hemoglobin 9, hematocrit 32, and platelet count 207. Chemistry showed sodium 143, potassium 3.9, chloride 107, carbon dioxide of 33, anion gap of 7, BUN 21, and creatinine 0.8. Blood culture grew yeast species. IMPRESSION: This is a 52-year-old female, immunocompromised on history of steroid maintenance, history of systemic lupus erythematosus, nonischemic cardiomyopathy, status post defibrillator, status post removal of defibrillator, history of endocarditis, status post replaced defibrillator and now the left axillary line, history of deep vein thrombosis, history of pulmonary embolism, history of congestive heart failure, history of paroxysmal atrial fibrillation, on home milrinone, admitted with shock possibly septic as well as secondary to decompensated congestive heart failure and cardiogenic shock, pulmonary edema. Start with Levophed and then later on resume back milrinone. The patient is stable. History of atrial fibrillation, on amiodarone and anticoagulation. On admission, INR was supratherapeutic, subtherapeutic yesterday, increased to 4 mg, now is 1.9. RECOMMENDATIONS: We will cut down the Coumadin, transthoracic echo was ordered, suggested to do the RANJETE if negative. The patient has in the past also persistently negative yeast and RANJEET was done in the past. So, suggested Dr. Fernandes that the patient has already RANJEET in the past. If need again, the patient can be discharged and follow with Dr. Kahn, who is a household worker can be done at the [facility] and then continue milrinone. Continue spironolactone. Continue amiodarone. Continue Coreg. We will decrease the dose of Coumadin from 4 to 3, to prevent overshooting of supratherapeutic dose because the patient came in with supratherapeutic INR. Follow up PT INR. We will review the previous chart when the patient's last RANJEET was done. Old chart reviewed. The patient had RANJEET on 09/08/2017 to rule out endocarditis at that time. The patient has also fungemia in the past. RANJEET was negative for endocarditis. As mentioned above, if they are strong suspicious for endocarditis, RANJEET can be done at [facility] [place] Kahn. Once the patient is stable, can be discharge to home. Thank you Dr. Fernandes for providing the opportunity in taking care of the patient Karan Brown. We will follow with you. Roberto Jones MD
[2018-06-23] MEDS ORDERED: Oxycodone/Acetaminophen 5/325 mg Tab PO STA (20:35)
[2018-06-24] MEDS: Albuterol-Ipratrop 3 mg / 0.5 (3 ml) UD IH SCH ×6 (02:25→20:40)
[2018-06-24] MEDS: Milrinone 20mg/100ml D5W 100 ML IV PRN (04:53)
[2018-06-24 07:23] LABS: INR 2.14
[2018-06-24] MEDS: Meropenem IV 1 gm in NS 1 GM/50 ML BAG IVPB SCH ×2 (09:53→21:18)
[2018-06-24] MEDS: Micafungin 100 MG in Sodium Chloride 0.9% 100 ML IV SCH (11:50)
[2018-06-24] MEDS: guaiFENesin DM 100 mg-10 mg/5 ml UD PO PRN ×2 (11:54→21:15)
--- NOTE | 2018-06-24 11:59 | CP.PCM.CON ---
History of Present Illness - History of Present Illness History of Present Illness: Gastroenterology Fellow/PGY6 Consult Note 53 year old female with past medical history of Atrial fibrillation on Coumadin, sCHF EF 15%, AICD, recurrent fungemia, CVA, and SLE presenting with shortness of breath. Active treatment of CHF decompensation and fungemia. GI consultation for abdominal pain. Patient notes supra-umbilical and left upper abdominal pain since yesterday. No association with eating and denies resolution with daily soft bowel movements. Admits to increased liquid stools in setting of antibiotic use. Mentions usually takes percocet at home for lower back pain and denies chronic issues with constipation. Denies nausea, vomiting, heartburn, acid reflux, indigestion, constipation, melena, hematochezia, or unintentional weight loss. Endorses prior EGD and colonoscopy at [facility] in the last ten years to be normal. Family History- mother-esophageal cancer Social History- former tobacco use; denies alcohol or illicit drug use Surgical History- hematoma evacuation, AICD, Biventricular pacemaker, Review of Systems - Review of Systems Review of Systems: 12-point review of systems negative except for as above Past Patient History - Infectious Disease Hx of Infectious Diseases: None - Tetanus Immunizations Tetanus Immunization: Unknown - Past Medical History & Family History Past Medical History?: Yes - Past Social History Smoking Status: Former Smoker - CARDIAC Hx Cardiac Disorders: Yes Hx Pacemaker: Yes Other/Comment: as per pt: cardiomyopathy - PULMONARY Hx Respiratory Disorders: Yes Hx Asthma: Yes Hx Pneumonia: Yes Hx Pulmonary Embolism: Yes - NEUROLOGICAL Hx Neurological Disorder: Yes HX Cerebrovascular Accident: Yes Hx Dizziness: Yes - HEENT Hx HEENT Problems: Yes - RENAL Hx Chronic Kidney Disease: No - ENDOCRINE/METABOLIC Hx Endocrine Disorders: Yes Hx Systemic Lupus Erythematosus: Yes - HEMATOLOGICAL/ONCOLOGICAL Hx Cancer: No - INTEGUMENTARY Hx Dermatological Problems: Yes - MUSCULOSKELETAL/RHEUMATOLOGICAL Hx Musculoskeletal Disorders: Yes Hx Back Pain: Yes - GASTROINTESTINAL Hx Gastrointestinal Disorders: Yes Hx Gastroesophageal Reflux: Yes - GENITOURINARY/GYNECOLOGICAL Hx Genitourinary Disorders: Yes Hx Reproductive Disorders: Yes - PSYCHIATRIC Hx Psychophysiologic Disorder: Yes Hx Anxiety: Yes Hx Depression: Yes Hx Panic Symptoms: Yes Hx Substance Use: No - SURGICAL HISTORY Other/Comment: PACEMAKER - ANESTHESIA Hx Anesthesia: Yes Hx Anesthesia Reactions: No Hx Malignant Hyperthermia: No Meds Allergies/Adverse Reactions: Allergies Allergy/AdvReac Type Severity Reaction Status Date / Time tramadol [From Ultram] AdvReac Unknown NAUSEA Verified 06/19/18 02:50 - Medications Medications: Current Medications Albuterol/Ipratropium (Duoneb 3 Mg/0.5 Mg (3 Ml) Ud) 3 ml IH [id number] [facility] Last Admin: 06/24/18 07:15 Dose: Not Given Alprazolam (Xanax) 0.25 mg PO BID PRN; Protocol PRN Reason: Anxiety Stop: 06/27/18 18:01 Last Admin: 06/23/18 03:14 Dose: 0.25 mg Amiodarone HCl (Cordarone) 200 mg PO DAILY [facility] Last Admin: 06/24/18 09:52 Dose: 200 mg Azithromycin (Zithromax) 500 mg PO DAILY [facility] Stop: 06/25/18 10:01 Last Admin: 06/24/18 09:51 Dose: 500 mg Benzocaine/Menthol (Cepacol Sore Throat) 1 amber MT Q2H PRN PRN Reason: Sore Throat Last Admin: 06/23/18 14:33 Dose: 1 amber Carvedilol (Coreg) 3.125 mg PO BID [facility] Last Admin: 06/24/18 09:52 Dose: 3.125 mg Dicyclomine HCl (Bentyl) 10 mg PO QID PRN PRN Reason: stomach pain Digoxin (Digoxin) 0.125 mg PO 1400 [facility] Last Admin: 06/23/18 13:11 Dose: 0.125 mg Famotidine (Pepcid) 20 mg PO BID [facility] Last Admin: 06/24/18 09:51 Dose: 20 mg Folic Acid (Folic Acid) 1 mg PO DAILY [facility] Last Admin: 06/24/18 09:52 Dose: 1 mg Furosemide (Lasix) 40 mg PO 0800,1400 [facility] Last Admin: 06/24/18 09:52 Dose: 40 mg Guaifenesin/Dextromethorphan (Robitussin Dm) 5 ml PO Q4H PRN PRN Reason: Cough Last Admin: 06/23/18 14:35 Dose: 5 ml Hydrocortisone Sodium Succinate (Solu-Cortef) 50 mg IVP DAILY [facility] Last Admin: 06/23/18 09:41 Dose: 50 mg Milrinone Lactate/Dextrose (Primacor 20mg/100ml D5w) 100 mls @ 9.731 mls/hr IV .[id number] PRN; Protocol PRN Reason: TITRATE PER MD ORDER Last Admin: 06/24/18 04:53 Dose: 0.375 mcg/kg/min, 9.731 mls/hr Meropenem (Merrem Iv 1 Gm Premix) 1 gm in 50 mls @ 100 mls/hr IVPB Q12 [facility]; Protocol Stop: 06/26/18 18:01 Last Admin: 06/24/18 09:53 Dose: 100 mls/hr Micafungin Sodium 100 mg/ (Sodium Chloride) 100 mls @ 100 mls/hr IV DAILY [facility]; Protocol Stop: 06/29/18 10:01 Last Admin: 06/23/18 09:39 Dose: 100 mls/hr Lisinopril (Zestril) 2.5 mg PO DAILY [facility] Last Admin: 06/24/18 09:51 Dose: 2.5 mg Loratadine (Claritin) 10 mg PO DAILY [facility] Last Admin: 06/24/18 09:51 Dose: 10 mg Oxycodone/Acetaminophen (Percocet 5/325 Mg Tab) 1 tab PO Q6H PRN PRN Reason: Pain, moderate (4-7) Stop: 06/27/18 11:26 Sodium Chloride ([place] Nasal [place]) 0 ml NS BID PRN PRN Reason: Nasal congestion Spironolactone (Aldactone) 25 mg PO DAILY [facility] Last Admin: 06/24/18 09:52 Dose: 25 mg Warfarin Sodium (Coumadin) 3 mg PO 1800 [facility]; Protocol Last Admin: 06/23/18 17:42 Dose: 3 mg Physical Exam - Constitutional Appears: Non-toxic, No Acute Distress - Head Exam Head Exam: ATRAUMATIC, NORMOCEPHALIC - Eye Exam Eye Exam: EOMI, PERRL. absent: Scleral icterus Pupil Exam: PERRL. absent: Miosis, Mydriatic - ENT Exam ENT Exam: Mucous Membranes Moist, Normal Oropharynx - Neck Exam Neck exam: Positive for: Normal Inspection - Respiratory Exam Respiratory Exam: Clear to Auscultation Bilateral. absent: Rales, Rhonchi, Wheezes - Cardiovascular Exam Cardiovascular Exam: RRR, +S1, +S2. absent: Gallop, Rubs - GI/Abdominal Exam GI & Abdominal Exam: Normal Bowel Sounds, Soft, Tenderness. absent: Distended, Firm, Guarding, Organomegaly, Rebound, Rigid Additional comments: LUQ/supra-umbilical tenderness - Neurological Exam Neurological exam: Alert - Psychiatric Exam Psychiatric exam: Normal Affect, Normal Mood - Skin Skin Exam: Dry, Intact, Normal Color, Warm Results - Vital Signs Recent Vital Signs: Last Vital Signs Temp 98.3 F 06/23/18 04:00 Pulse 70 06/24/18 06:00 Resp 23 06/23/18 02:20 BP 120/70 06/24/18 09:52 Pulse Ox 97 06/23/18 02:20 - Labs Result Diagrams: 06/22/18 06:25 06/23/18 06:40 Labs: Laboratory Results - last 24 hr 06/24/18 06:55 PT 25.0 H INR 2.14 Assessment & Plan - Assessment and Plan (Free Text) Assessment: 53 year old female with past medical history of Atrial fibrillation on Coumadin, sCHF EF 15%, AICD, recurrent fungemia, CVA, and SLE presenting with shortness of breath. Active treatment of CHF decompensation and fungemia. GI consultation for abdominal pain. Endorses prior EGD and colonoscopy at [facility] in the last ten years to be normal. Plan: -DDx: dyspepsia, infection, antibiotic-related -low suspicion for acute abdomen -check Cdiff -start Protonix ACB -Bentyl PRN -limit narcotic use -will follow clinical course
[2018-06-24] MEDS: Oxycodone/Acetaminophen 5/325 mg Tab PO PRN ×2 (12:11→21:16)
--- NOTE | 2018-06-24 13:36 | CP.PCM.PN ---
Subjective - Date & Time of Evaluation Date of Evaluation: 06/24/18 Time of Evaluation: 12:50 - Subjective Subjective: No fevers, not in distress, breathing a little better with occasional cough, no nausea, no diarrhea. Objective - Vital Signs/Intake and Output Vital Signs (last 24 hours): Temp Pulse Resp BP Pulse Ox 98.3 F 70 23 101/67 97 06/23/18 04:00 06/24/18 06:00 06/23/18 02:20 06/24/18 04:53 06/23/18 02:20 Intake and Output: 06/24/18 06/24/18 06:59 18:59 Intake Total 90 Balance 90 - Medications Medications: Current Medications Albuterol/Ipratropium (Duoneb 3 Mg/0.5 Mg (3 Ml) Ud) 3 ml IH [id number] [facility] Last Admin: 06/24/18 07:15 Dose: Not Given Alprazolam (Xanax) 0.25 mg PO BID PRN; Protocol PRN Reason: Anxiety Stop: 06/27/18 18:01 Last Admin: 06/23/18 03:14 Dose: 0.25 mg Amiodarone HCl (Cordarone) 200 mg PO DAILY [facility] Last Admin: 06/23/18 09:37 Dose: 200 mg Azithromycin (Zithromax) 500 mg PO DAILY [facility] Stop: 06/25/18 10:01 Benzocaine/Menthol (Cepacol Sore Throat) 1 amber MT Q2H PRN PRN Reason: Sore Throat Last Admin: 06/23/18 14:33 Dose: 1 amber Carvedilol (Coreg) 3.125 mg PO BID [facility] Last Admin: 06/23/18 17:42 Dose: 3.125 mg Dicyclomine HCl (Bentyl) 10 mg PO QID PRN PRN Reason: stomach pain Digoxin (Digoxin) 0.125 mg PO 1400 [facility] Last Admin: 06/23/18 13:11 Dose: 0.125 mg Famotidine (Pepcid) 20 mg PO BID [facility] Last Admin: 06/23/18 17:42 Dose: 20 mg Folic Acid (Folic Acid) 1 mg PO DAILY [facility] Last Admin: 06/23/18 09:38 Dose: 1 mg Furosemide (Lasix) 40 mg PO 0800,1400 [facility] Last Admin: 06/23/18 13:12 Dose: 40 mg Guaifenesin/Dextromethorphan (Robitussin Dm) 5 ml PO Q4H PRN PRN Reason: Cough Last Admin: 06/23/18 14:35 Dose: 5 ml Hydrocortisone Sodium Succinate (Solu-Cortef) 50 mg IVP DAILY [facility] Last Admin: 06/23/18 09:41 Dose: 50 mg Milrinone Lactate/Dextrose (Primacor 20mg/100ml D5w) 100 mls @ 9.731 mls/hr IV .[id number] PRN; Protocol PRN Reason: TITRATE PER MD ORDER Last Admin: 06/24/18 04:53 Dose: 0.375 mcg/kg/min, 9.731 mls/hr Meropenem (Merrem Iv 1 Gm Premix) 1 gm in 50 mls @ 100 mls/hr IVPB Q12 [facility]; Protocol Stop: 06/26/18 18:01 Last Admin: 06/23/18 21:14 Dose: 100 mls/hr Micafungin Sodium 100 mg/ (Sodium Chloride) 100 mls @ 100 mls/hr IV DAILY [facility]; Protocol Stop: 06/29/18 10:01 Last Admin: 06/23/18 09:39 Dose: 100 mls/hr Lisinopril (Zestril) 2.5 mg PO DAILY [facility] Last Admin: 06/23/18 09:43 Dose: 2.5 mg Loratadine (Claritin) 10 mg PO DAILY [facility] Last Admin: 06/23/18 09:37 Dose: 10 mg Sodium Chloride ([place] Nasal [place]) 0 ml NS BID PRN PRN Reason: Nasal congestion Spironolactone (Aldactone) 25 mg PO DAILY [facility] Last Admin: 06/23/18 09:37 Dose: 25 mg Warfarin Sodium (Coumadin) 3 mg PO 1800 [facility]; Protocol Last Admin: 06/23/18 17:42 Dose: 3 mg - Labs Labs: 06/22/18 06:25 06/23/18 06:40 PT 22.1 SECONDS (9.4-12.5) H 06/23/18 06:40 INR 1.90 06/23/18 06:40 APTT 48.5 Seconds (25.1-36.5) H 06/20/18 07:30 - Constitutional Appears: Chronically Ill - Head Exam Head Exam: NORMAL INSPECTION - Respiratory Exam Respiratory Exam: Decreased Breath Sounds - Cardiovascular Exam Cardiovascular Exam: +S1, +S2 - GI/Abdominal Exam GI & Abdominal Exam: Soft. absent: Tenderness Assessment and Plan - Assessment and Plan (Free Text) Plan: Assessment Candidemia, source unclear, R/O AICD infection since PICC was removed in 2017 the last time she had C. glabrata fungemia acute on chronic CHF, R/O HCAP history of sepsis due to Ashley glabrata fungemia, R/O due to line infection, no vegetations on ICD or heart valves noted on 2D echo with line removed (2017) and placement of new line acute bronchitis as well as URI, no specific evidence of pneumonia, clinically improved oral thrush probably from inhaler use history of Ashley glabrata fungemia, suspicious to be PICC line/port-related S/P port removal; RANJEET done and did not show valve vegetations or vegetations on the AICD history of sepsis due to C. parapsilosis and C. glabrata fungemia and Enterococcus bacteremia probably from PICC line, unable to rule out endocarditis history of Sepsis due to right breast cellulitis/mastitis with purulent discharge, growing Serratia history of bilateral breast mastitis growing coagulase negative Staph and Klebsiella pneumoniae history of vaginal candidiasis SLE history of pulmonary emboli CVA asthma S/P ICD placement Plan continue Merrem and Zithromax for 4-7 days continue Mycamine pending identification and sensitivities of the yeast in the blood; repeat blood cx are negative recommend RANJEET and we have discussed this with Dr. Fernandes will continue to monitor clinically overall prognosis is poor
[2018-06-24] MEDS: Digoxin 125 mcg (0.125 mg) Tab PO SCH (13:40)
--- NOTE | 2018-06-24 13:57 | PN ---
DATE: 06/24/2018 SUBJECTIVE: The patient is 52 years old, seen and examined, complained of left lower quadrant pain, just had bowel movement, not constipated. No diarrhea, complained of generalized weakness. PHYSICAL EXAMINATION: VITAL SIGNS: She is afebrile, pulse 70, respirations 18, and blood pressure 120/70. LUNGS: Bilateral fair air flow, no rhonchi or crackles. HEART: S1 and S2 audible. ABDOMEN: Soft, left lower quadrant palpable discomfort. No rebound and no guarding. NEUROLOGIC: She is awake, alert, oriented, and communicative. EXTREMITIES: Bilateral leg, no edema. LABORATORY DATA: No new labs available today; however, her PT is 25.0, INR 2.14. ASSESSMENT: 1. Nonischemic cardiomyopathy. 2. Status post defibrillator placement. 3. History of endocarditis. 4. History of lupus. 5. Deep vein thrombosis. 6. History of pulmonary embolism. 7. Congestive heart failure secondary to left ventricular dysfunction. 8. Chronic atrial fibrillation. 9. On Primacor drip at home. The patient was recently diagnosed with fungemia and has been on Mycamine. PLAN: Currently, the patient is on spironolactone. She is on Bentyl p.r.n. She is on amiodarone, carvedilol. She is on Coumadin, digoxin, and nebulizer treatment. She is on Lasix. She is on meropenem and Mycamine and she is on Primacor drip and Zithromax for right upper lobe and lower lobe infiltrates. I spoke to ID. They want to have RANJEET done to rule out endocarditis. I spoke to the patient. She said she had RANJEET done almost a year ago by Dr. Rubalcava, may need a new RANJEET since she has fungemia in spite of being on Mycamine to rule out fungal endocarditis. Chalo Fernandes MD
[2018-06-24] MEDS: Benzocaine/Menthol (Cepacol) Lozenge MT PRN (22:10)
--- NOTE | 2018-06-24 23:55 | CP.PCM.CON ---
Past Patient History - Infectious Disease Hx of Infectious Diseases: None - Tetanus Immunizations Tetanus Immunization: Unknown - Past Medical History & Family History Past Medical History?: Yes - Past Social History Smoking Status: Former Smoker - CARDIAC Hx Cardiac Disorders: Yes Hx Pacemaker: Yes Other/Comment: as per pt: cardiomyopathy - PULMONARY Hx Respiratory Disorders: Yes Hx Asthma: Yes Hx Pneumonia: Yes Hx Pulmonary Embolism: Yes - NEUROLOGICAL Hx Neurological Disorder: Yes HX Cerebrovascular Accident: Yes Hx Dizziness: Yes - HEENT Hx HEENT Problems: Yes - RENAL Hx Chronic Kidney Disease: No - ENDOCRINE/METABOLIC Hx Endocrine Disorders: Yes Hx Systemic Lupus Erythematosus: Yes - HEMATOLOGICAL/ONCOLOGICAL Hx Cancer: No - INTEGUMENTARY Hx Dermatological Problems: Yes - MUSCULOSKELETAL/RHEUMATOLOGICAL Hx Musculoskeletal Disorders: Yes Hx Back Pain: Yes - GASTROINTESTINAL Hx Gastrointestinal Disorders: Yes Hx Gastroesophageal Reflux: Yes - GENITOURINARY/GYNECOLOGICAL Hx Genitourinary Disorders: Yes Hx Reproductive Disorders: Yes - PSYCHIATRIC Hx Psychophysiologic Disorder: Yes Hx Anxiety: Yes Hx Depression: Yes Hx Panic Symptoms: Yes Hx Substance Use: No - SURGICAL HISTORY Other/Comment: PACEMAKER - ANESTHESIA Hx Anesthesia: Yes Hx Anesthesia Reactions: No Hx Malignant Hyperthermia: No Meds Allergies/Adverse Reactions: Allergies Allergy/AdvReac Type Severity Reaction Status Date / Time tramadol [From Ultram] AdvReac Unknown NAUSEA Verified 06/19/18 02:50 - Medications Medications: Current Medications Albuterol/Ipratropium (Duoneb 3 Mg/0.5 Mg (3 Ml) Ud) 3 ml IH [id number] [facility] Last Admin: 06/24/18 20:40 Dose: 3 ml Alprazolam (Xanax) 0.25 mg PO BID PRN; Protocol PRN Reason: Anxiety Stop: 06/27/18 18:01 Last Admin: 06/23/18 03:14 Dose: 0.25 mg Amiodarone HCl (Cordarone) 200 mg PO DAILY [facility] Last Admin: 06/24/18 09:52 Dose: 200 mg Azithromycin (Zithromax) 500 mg PO DAILY [facility] Stop: 06/25/18 10:01 Last Admin: 06/24/18 09:51 Dose: 500 mg Benzocaine/Menthol (Cepacol Sore Throat) 1 amber MT Q2H PRN PRN Reason: Sore Throat Last Admin: 06/24/18 22:10 Dose: 1 amber Carvedilol (Coreg) 3.125 mg PO BID [facility] Last Admin: 06/24/18 18:24 Dose: 3.125 mg Dicyclomine HCl (Bentyl) 10 mg PO QID PRN PRN Reason: stomach pain Digoxin (Digoxin) 0.125 mg PO 1400 [facility] Last Admin: 06/24/18 13:40 Dose: 0.125 mg Famotidine (Pepcid) 20 mg PO BID [facility] Last Admin: 06/24/18 18:23 Dose: 20 mg Folic Acid (Folic Acid) 1 mg PO DAILY [facility] Last Admin: 06/24/18 09:52 Dose: 1 mg Furosemide (Lasix) 40 mg PO 0800,1400 [facility] Last Admin: 06/24/18 13:40 Dose: 40 mg Guaifenesin/Dextromethorphan (Robitussin Dm) 5 ml PO Q4H PRN PRN Reason: Cough Last Admin: 06/24/18 21:15 Dose: 5 ml Hydrocortisone Sodium Succinate (Solu-Cortef) 50 mg IVP DAILY [facility] Last Admin: 06/24/18 11:50 Dose: 50 mg Milrinone Lactate/Dextrose (Primacor 20mg/100ml D5w) 100 mls @ 9.731 mls/hr IV .[id number] PRN; Protocol PRN Reason: TITRATE PER MD ORDER Last Admin: 06/24/18 04:53 Dose: 0.375 mcg/kg/min, 9.731 mls/hr Meropenem (Merrem Iv 1 Gm Premix) 1 gm in 50 mls @ 100 mls/hr IVPB Q12 [facility]; Protocol Stop: 06/26/18 18:01 Last Admin: 06/24/18 21:18 Dose: 100 mls/hr Micafungin Sodium 100 mg/ (Sodium Chloride) 100 mls @ 100 mls/hr IV DAILY [facility]; Protocol Stop: 06/29/18 10:01 Last Admin: 06/24/18 11:50 Dose: 100 mls/hr Lisinopril (Zestril) 2.5 mg PO DAILY [facility] Last Admin: 06/24/18 09:51 Dose: 2.5 mg Loratadine (Claritin) 10 mg PO DAILY [facility] Last Admin: 06/24/18 09:51 Dose: 10 mg Oxycodone/Acetaminophen (Percocet 5/325 Mg Tab) 1 tab PO Q6H PRN PRN Reason: Pain, moderate (4-7) Stop: 06/27/18 11:26 Last Admin: 06/24/18 21:16 Dose: 1 tab Sodium Chloride ([place] Nasal [place]) 0 ml NS BID PRN PRN Reason: Nasal congestion Spironolactone (Aldactone) 25 mg PO DAILY [facility] Last Admin: 06/24/18 09:52 Dose: 25 mg Warfarin Sodium (Coumadin) 3 mg PO 1800 [facility]; Protocol Last Admin: 06/24/18 18:23 Dose: 3 mg Results - Vital Signs Recent Vital Signs: Last Vital Signs Temp 97.4 F L 06/24/18 17:04 Pulse 70 06/24/18 22:00 Resp 18 06/24/18 17:04 BP 121/83 06/24/18 18:24 Pulse Ox 79 L 06/24/18 09:20 - Labs Result Diagrams: 06/22/18 06:25 06/23/18 06:40 Labs: Laboratory Results - last 24 hr 06/24/18 06:55 PT 25.0 H INR 2.14 Attending/Attestation - Attestation I have personally seen and examined this patient.: Yes I have fully participated in the care of the patient.: Yes I have reviewed all pertinent clinical information: Yes Notes (Text): This is an addendum to GI consult report dictated by the GI Fellow. The patient was seen and examined earlier. Medical records, lab studies, imagings were reviewed. Last 24 hours events reviewed. Agreed with the above treatment plan as outlined in GI Fellow 's notes with the addition of the following 06/24/18 23:54
[2018-06-25] MEDS: Albuterol-Ipratrop 3 mg / 0.5 (3 ml) UD IH SCH ×4 (02:35→22:07)
[2018-06-25 06:10] VITALS: O2SAT 96
[2018-06-25 07:54] LABS: INR 2.61; PROTHROMBIN TIME 30.6 SECONDS (9.4-12.5)
[2018-06-25] MEDS: Oxycodone/Acetaminophen 5/325 mg Tab PO PRN ×2 (08:56→22:27)
[2018-06-25] MEDS: Meropenem IV 1 gm in NS 1 GM/50 ML BAG IVPB SCH (10:03)
[2018-06-25] MEDS: Micafungin 100 MG in Sodium Chloride 0.9% 100 ML IV SCH (10:10)
--- NOTE | 2018-06-25 12:43 | CP.PCM.PN ---
Subjective - Date & Time of Evaluation Date of Evaluation: 06/25/18 Time of Evaluation: 10:55 - Subjective Subjective: Still having occasional shortness of breath at rest, no fevers. Objective - Vital Signs/Intake and Output Vital Signs (last 24 hours): Temp Pulse Resp BP Pulse Ox 98.3 F 80 23 120/70 97 06/23/18 04:00 06/24/18 12:51 06/23/18 02:20 06/24/18 09:52 06/23/18 02:20 Intake and Output: 06/24/18 06/24/18 06:59 18:59 Intake Total 90 Balance 90 - Medications Medications: Current Medications Albuterol/Ipratropium (Duoneb 3 Mg/0.5 Mg (3 Ml) Ud) 3 ml IH [id number] [facility] Last Admin: 06/24/18 07:15 Dose: Not Given Alprazolam (Xanax) 0.25 mg PO BID PRN; Protocol PRN Reason: Anxiety Stop: 06/27/18 18:01 Last Admin: 06/23/18 03:14 Dose: 0.25 mg Amiodarone HCl (Cordarone) 200 mg PO DAILY [facility] Last Admin: 06/24/18 09:52 Dose: 200 mg Azithromycin (Zithromax) 500 mg PO DAILY [facility] Stop: 06/25/18 10:01 Last Admin: 06/24/18 09:51 Dose: 500 mg Benzocaine/Menthol (Cepacol Sore Throat) 1 amber MT Q2H PRN PRN Reason: Sore Throat Last Admin: 06/23/18 14:33 Dose: 1 amber Carvedilol (Coreg) 3.125 mg PO BID [facility] Last Admin: 06/24/18 09:52 Dose: 3.125 mg Dicyclomine HCl (Bentyl) 10 mg PO QID PRN PRN Reason: stomach pain Digoxin (Digoxin) 0.125 mg PO 1400 [facility] Last Admin: 06/23/18 13:11 Dose: 0.125 mg Famotidine (Pepcid) 20 mg PO BID [facility] Last Admin: 06/24/18 09:51 Dose: 20 mg Folic Acid (Folic Acid) 1 mg PO DAILY [facility] Last Admin: 06/24/18 09:52 Dose: 1 mg Furosemide (Lasix) 40 mg PO 0800,1400 [facility] Last Admin: 06/24/18 09:52 Dose: 40 mg Guaifenesin/Dextromethorphan (Robitussin Dm) 5 ml PO Q4H PRN PRN Reason: Cough Last Admin: 06/24/18 11:54 Dose: 5 ml Hydrocortisone Sodium Succinate (Solu-Cortef) 50 mg IVP DAILY [facility] Last Admin: 06/24/18 11:50 Dose: 50 mg Milrinone Lactate/Dextrose (Primacor 20mg/100ml D5w) 100 mls @ 9.731 mls/hr IV .[id number] PRN; Protocol PRN Reason: TITRATE PER MD ORDER Last Admin: 06/24/18 04:53 Dose: 0.375 mcg/kg/min, 9.731 mls/hr Meropenem (Merrem Iv 1 Gm Premix) 1 gm in 50 mls @ 100 mls/hr IVPB Q12 [facility]; Pro tocol Stop: 06/26/18 18:01 Last Admin: 06/24/18 09:53 Dose: 100 mls/hr Micafungin Sodium 100 mg/ (Sodium Chloride) 100 mls @ 100 mls/hr IV DAILY [facility]; Protocol Stop: 06/29/18 10:01 Last Admin: 06/24/18 11:50 Dose: 100 mls/hr Lisinopril (Zestril) 2.5 mg PO DAILY [facility] Last Admin: 06/24/18 09:51 Dose: 2.5 mg Loratadine (Claritin) 10 mg PO DAILY [facility] Last Admin: 06/24/18 09:51 Dose: 10 mg Oxycodone/Acetaminophen (Percocet 5/325 Mg Tab) 1 tab PO Q6H PRN PRN Reason: Pain, moderate (4-7) Stop: 06/27/18 11:26 Last Admin: 06/24/18 12:11 Dose: 1 tab Sodium Chloride ([place] Nasal [place]) 0 ml NS BID PRN PRN Reason: Nasal congestion Spironolactone (Aldactone) 25 mg PO DAILY [facility] Last Admin: 06/24/18 09:52 Dose: 25 mg Warfarin Sodium (Coumadin) 3 mg PO 1800 [facility]; Protocol Last Admin: 06/23/18 17:42 Dose: 3 mg - Labs Labs: 06/22/18 06:25 06/23/18 06:40 PT 25.0 SECONDS (9.4-12.5) H 06/24/18 06:55 INR 2.14 06/24/18 06:55 APTT 48.5 Seconds (25.1-36.5) H 06/20/18 07:30 - Constitutional Appears: Chronically Ill - Head Exam Head Exam: NORMAL INSPECTION - Neck Exam Neck Exam: absent: Meningismus - Respiratory Exam Respiratory Exam: Decreased Breath Sounds - Cardiovascular Exam Cardiovascular Exam: +S1, +S2 - GI/Abdominal Exam GI & Abdominal Exam: Soft. absent: Tenderness - Extremities Exam Additional comments: right arm PICC line in place Assessment and Plan - Assessment and Plan (Free Text) Plan: Assessment Candidemia, source unclear, R/O AICD infection since PICC was removed in 2017 the last time she had C. glabrata fungemia acute on chronic CHF, R/O HCAP history of sepsis due to Ashley glabrata fungemia, R/O due to line infection, no vegetations on ICD or heart valves noted on 2D echo with line removed (2017) and placement of new line acute bronchitis as well as URI, no specific evidence of pneumonia, clinically improved oral thrush probably from inhaler use history of Ashley glabrata fungemia, suspicious to be PICC line/port-related S/P port removal; RANJEET done and did not show valve vegetations or vegetations on the AICD history of sepsis due to C. parapsilosis and C. glabrata fungemia and Enterococcus bacteremia probably from PICC line, unable to rule out endocarditis history of Sepsis due to right breast cellulitis/mastitis with purulent discharge, growing Serratia history of bilateral breast mastitis growing coagulase negative Staph and Klebsiella pneumoniae history of vaginal candidiasis SLE history of pulmonary emboli CVA asthma S/P ICD placement Plan continue Merrem 4-7 days - will d/c after today continue Mycamine pending identification and sensitivities of the yeast in the blood; repeat blood cx from 06/21 are still positive - will repeat blood cx today, one set from PICC line and one set from peripheral vein - discussed with nurse in charge of the patient recommend RANJEET and we have discussed this with Dr. Fernandes will continue to monitor clinically overall prognosis is poor
[2018-06-25] MEDS: Milrinone 20mg/100ml D5W 100 ML IV PRN (14:46)
[2018-06-25] MEDS: Digoxin 125 mcg (0.125 mg) Tab PO SCH (14:47)
[2018-06-25 14:48] VITALS: PULSE 80
--- NOTE | 2018-06-25 15:37 | CP.PCM.PN ---
<Madie Siddiqui - Last Filed: 06/25/18 15:33> Subjective - Date & Time of Evaluation Date of Evaluation: 06/25/18 Time of Evaluation: 15:33 - Subjective Subjective: Gastroenterology Fellow/PGY6 Consult Note Patient notes resolved abdominal pain. Tolerating regular diet. Admits to formed bowel movement this morning. A 12-point review of systems negative except for as above. Objective - Vital Signs/Intake and Output Vital Signs (last 24 hours): Temp Pulse Resp BP Pulse Ox 98.8 F 80 16 120/70 96 06/25/18 12:00 06/25/18 13:20 06/25/18 12:00 06/25/18 14:47 06/25/18 06:00 Intake and Output: 06/25/18 06/25/18 06:59 18:59 Intake Total 766 100 Output Total 1300 Balance -534 100 - Medications Medications: Current Medications Albuterol/Ipratropium (Duoneb 3 Mg/0.5 Mg (3 Ml) Ud) 3 ml IH [id number] [facility] Last Admin: 06/25/18 13:10 Dose: 3 ml Alprazolam (Xanax) 0.25 mg PO BID PRN; Protocol PRN Reason: Anxiety Stop: 06/27/18 18:01 Last Admin: 06/25/18 15:10 Dose: 0.25 mg Amiodarone HCl (Cordarone) 200 mg PO DAILY [facility] Last Admin: 06/25/18 10:02 Dose: 200 mg Benzocaine/Menthol (Cepacol Sore Throat) 1 amber MT Q2H PRN PRN Reason: Sore Throat Last Admin: 06/24/18 22:10 Dose: 1 amber Carvedilol (Coreg) 3.125 mg PO BID [facility] Last Admin: 06/25/18 10:03 Dose: 3.125 mg Dicyclomine HCl (Bentyl) 10 mg PO QID PRN PRN Reason: stomach pain Digoxin (Digoxin) 0.125 mg PO 1400 [facility] Last Admin: 06/25/18 14:47 Dose: 0.125 mg Folic Acid (Folic Acid) 1 mg PO DAILY [facility] Last Admin: 06/25/18 10:02 Dose: 1 mg Furosemide (Lasix) 40 mg PO 0800,1400 [facility] Last Admin: 06/25/18 14:47 Dose: 40 mg Guaifenesin/Dextromethorphan (Robitussin Dm) 5 ml PO Q4H PRN PRN Reason: Cough Last Admin: 06/24/18 21:15 Dose: 5 ml Hydrocortisone Sodium Succinate (Solu-Cortef) 50 mg IVP DAILY [facility] Last Admin: 06/25/18 10:03 Dose: 50 mg Milrinone Lactate/Dextrose (Primacor 20mg/100ml D5w) 100 mls @ 9.731 mls/hr IV .[id number] PRN; Protocol PRN Reason: TITRATE PER MD ORDER Last Admin: 06/25/18 14:46 Dose: 0.375 mcg/kg/min, 9.731 mls/hr Meropenem (Merrem Iv 1 Gm Premix) 1 gm in 50 mls @ 100 mls/hr IVPB Q12 [facility]; Protocol Stop: 06/26/18 18:01 Last Admin: 06/25/18 10:03 Dose: 100 mls/hr Micafungin Sodium 100 mg/ (Sodium Chloride) 100 mls @ 100 mls/hr IV DAILY [facility]; Protocol Stop: 06/29/18 10:01 Last Admin: 06/25/18 10:10 Dose: 100 mls/hr Lisinopril (Zestril) 2.5 mg PO DAILY [facility] Last Admin: 06/25/18 10:02 Dose: 2.5 mg Loratadine (Claritin) 10 mg PO DAILY [facility] Last Admin: 06/25/18 10:03 Dose: 10 mg Oxycodone/Acetaminophen (Percocet 5/325 Mg Tab) 1 tab PO Q6H PRN PRN Reason: Pain, moderate (4-7) Stop: 06/27/18 11:26 Last Admin: 06/25/18 08:56 Dose: 1 tab Pantoprazole Sodium (Protonix Ec Tab) 40 mg PO 0600 [facility] Sodium Chloride (Combine Nasal [place]) 0 ml NS BID PRN PRN Reason: Nasal congestion Spironolactone (Aldactone) 25 mg PO DAILY [facility] Last Admin: 06/25/18 10:03 Dose: 25 mg Warfarin Sodium (Coumadin) 3 mg PO 1800 [facility]; Protocol Last Admin: 06/24/18 18:23 Dose: 3 mg - Labs Labs: 06/22/18 06:25 06/23/18 06:40 PT 30.6 SECONDS (9.4-12.5) H 06/25/18 06:00 INR 2.61 06/25/18 06:00 APTT 48.5 Seconds (25.1-36.5) H 06/20/18 07:30 - Constitutional Appears: Non-toxic, No Acute Distress - Head Exam Head Exam: ATRAUMATIC, NORMOCEPHALIC - Eye Exam Eye Exam: EOMI, PERRL. absent: Scleral icterus Pupil Exam: PERRL. absent: Miosis, Mydriatic - ENT Exam ENT Exam: Mucous Membranes Moist, Normal Oropharynx - Neck Exam Neck Exam: Full ROM, Normal Inspection - Respiratory Exam Respiratory Exam: Clear to Ausculation Bilateral. absent: Rales, Rhonchi, Wheezes - Cardiovascular Exam Cardiovascular Exam: RRR, +S1, +S2. absent: Gallop, Rubs - GI/Abdominal Exam GI & Abdominal Exam: Soft, Normal Bowel Sounds. absent: Distended, Firm, Guarding, Rigid, Tenderness, Organomegaly, Rebound - Extremities Exam Extremities Exam: Normal Inspection. absent: Pedal Edema - Neurological Exam Neurological Exam: Alert, Awake - Psychiatric Exam Psychiatric exam: Normal Affect, Normal Mood - Skin Skin Exam: Dry, Intact, Normal Color, Warm Assessment and Plan - Assessment and Plan (Free Text) Assessment: 53 year old female with past medical history of Atrial fibrillation on Coumadin, sCHF EF 15%, AICD, recurrent fungemia, CVA, and SLE presenting with shortness of breath. Active treatment of CHF decompensation and fungemia. GI consultation for abdominal pain. Endorses [place] [facility] [place] last [place] to be normal. Plan: -likely dyspepsia in setting of IV antibiotics -symptomsresolved -continue Protonix ACB -limit narcotic use -will follow clinical course <Jessenia Nevarez V - Last Filed: 06/25/18 23:45> Objective - Vital Signs/Intake and Output Vital Signs (last 24 hours): Temp Pulse Resp BP Pulse Ox 97.9 F 76 18 107/69 96 06/25/18 18:00 06/25/18 18:00 06/25/18 18:00 06/25/18 18:00 06/25/18 06:00 Intake and Output: 06/25/18 06/26/18 18:59 06:59 Intake Total 700 Balance 700 - Labs Labs: 06/22/18 06:25 06/23/18 06:40 PT 30.6 SECONDS (9.4-12.5) H 06/25/18 06:00 INR 2.61 06/25/18 06:00 APTT 48.5 Seconds (25.1-36.5) H 06/20/18 07:30 Attending/Attestation - Attestation I have personally seen and examined this patient.: Yes I have fully participated in the care of the patient.: Yes I have reviewed all pertinent clinical information, including history, physical exam and plan: Yes Notes (Text): This is an addendum to GI progress report dictated by the GI Fellow.The patient was seen and examined earlier. Medical records, lab studies, imagings were reviewed. Last 24 hours events reviewed. Agreed with the above treatment plan as outlined in GI Fellow 's notes with the addition of the following 06/25/18 23:45
[2018-06-25 21:28] VITALS: BP 107/69; PULSE 76; RESP 18; TEMP 97.9
[2018-06-25] MEDS: guaiFENesin DM 100 mg-10 mg/5 ml UD PO PRN (22:44)
[2018-06-25] MEDS: Benzocaine/Menthol (Cepacol) Lozenge MT PRN (22:44)
--- NOTE | 2018-06-26 01:27 | DS ---
HISTORY OF PRESENT ILLNESS: The patient is a 53-year-old, came with generalized weakness, was found to have Ashley in her one of the two bottles. Urine culture was found to be negative. Repeat blood culture on 06/21/2018 grew yeast . The patient has been on Mycamine. Still complains of generalized weakness, states I do not feel well. I spoke to the patient's primary care physician and mobile mechanic, Dr. Rubalcava and Dr. Maurer and explained him the situation. He is willing to accept the patient to be transferred to [facility] because they have been her mobile mechanic for long time and understand the situation better, so we will try to transfer her to the [facility] today. PHYSICAL EXAMINATION: GENERAL: She is awake and alert, able to communicate. VITAL SIGNS: She is afebrile. Pulse 80, respirations 19 and blood pressure 120/70. LUNGS: Bilateral fair airflow. No rhonchi or crackle. HEART: S1 and S2 audible. ABDOMEN: Soft, nontender. No rebound. No guarding. NEUROLOGIC: The patient is awake and alert. Able to communicate. Moves all extremity. Bilateral legs, no edema. LABORATORY EXAM: WBC is 9.3, hemoglobin 9, hematocrit 32 and platelets 207. PT 30.6 and INR 2.61. Chemistry; sodium 143, potassium 3.9, chloride 107, CO2 of 33, BUN 21, creatinine 0.8, blood sugar of 83. ASSESSMENT AND PLAN: 1. Generalized weakness. 2. Fungemia. 3. 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 4. History of deep venous thrombosis. 5. Pulmonary embolism. 6. History of anemia, had peripherally inserted central catheter line replaced. 7. History of defibrillator placement, that was infected and she has defibrillator replaced also. Timeline she does not know well. 8. Intermittent abdominal pain. PLAN: Currently, the patient is on spironolactone. She is on amiodarone, carvedilol. She was on Coumadin and digoxin. Continue nebulizer treatment. She is on IV diuretic. She is on meropenem. She is on Mycamine. She is on Primacor drip at home and we will continue that. We will initiate transfer process and once accepted, she will be transferred to [facility] to Dr. Maurer. Chalo Fernandes MD [facility] # [id number]
[2018-06-26] MEDS ORDERED: Pantoprazole 40 mg EC Tab PO SCH (06:00)
--- NOTE | 2018-06-26 08:24 | PN ---
DATE: 06/23/2018 SUBJECTIVE: The patient is a 53 years old, seen and examined; complained of generalized weakness, no energy. Denies any nausea or vomiting. Eating fair. No runny or stuffy nose. No abdominal pain. PHYSICAL EXAMINATION: VITAL SIGNS: She is afebrile. Pulse 67, respirations 23, and blood pressure 110/66. LUNGS: Bilateral fair airflow. No rhonchi or crackle. HEART: S1 and S2 audible. ABDOMEN: Soft. Nontender. No rebound. No guarding. NEUROLOGICAL: The patient is awake, alert, not able to communicate. LABORATORY DATA: WBC 9.3, hemoglobin 9, hematocrit 32, and platelet 207. PT is 22.1 and INR 1.90. Chemistry; sodium 143, potassium 3.9, chloride 107, CO2 of 33, BUN 21, and creatinine 0.8. Blood sugar of 83. Blood culture is positive for yeast species, otherwise, blood cultures are negative. ASSESSMENT: 1. Fungemia. 2. Status post defibrillator placement 3 to 4 years ago. 3. Cardiomyopathy secondary to lupus. 4. History of endocarditis. 5. History of deep venous thrombosis. 6. History of pulmonary embolism. 7. Nonischemic cardiomyopathy. 8. Chronic atrial fibrillation. 9. . PLAN: I spoke to the ID. They are recommending RANJEET, also spoke to Dr. Jones. The patient had RANJEET done in [facility]. We will reach out to Dr. Kahn to discuss further about further management. The patient is currently on Coumadin. She is on spironolactone. She is on amiodarone, carvedilol, Coumadin 3 mg with order. She is on digoxin. She is on folic acid, 640 mg twice a day. She is also on meropenem and Mycamine. She is on Zithromax as per ID recommendation. Chalo Fernandes MD
--- NOTE | 2018-06-27 21:34 | CP.PCM.PN ---
<Sergio Reyes - Last Filed: 06/27/18 23:48> Subjective - Date & Time of Evaluation Date of Evaluation: 06/27/18 Time of Evaluation: 21:32 - Subjective Subjective: Patient has a positive blood culture that grew yeast. Patint was discharged [place] [facility] [place] on 06/[place]. [address]. Fernandes who saw the patient at [facility] [place] and states that the patient was transferred to [facility] [place]. Contacted patient's PMD, DR. Maxwell's service, left a message for him at [facility] on his service- still awaiting his call Objective - Vital Signs/Intake and Output Vital Signs (last 24 hours): Temp Pulse Resp BP Pulse Ox 97.9 F 76 18 107/69 96 06/25/18 18:00 06/25/18 18:00 06/25/18 18:00 06/25/18 18:00 06/25/18 06:00 - Labs Labs: 06/22/18 06:25 06/23/18 06:40 PT 30.6 SECONDS (9.4-12.5) H 06/25/18 06:00 INR 2.61 06/25/18 06:00 APTT 48.5 Seconds (25.1-36.5) H 06/20/18 07:30 <Maria Elena Cuenca - Last Filed: 06/28/18 06:53> Objective - Vital Signs/Intake and Output Vital Signs (last 24 hours): Temp Pulse Resp BP Pulse Ox 97.9 F 76 18 107/69 96 06/25/18 18:00 06/25/18 18:00 06/25/18 18:00 06/25/18 18:00 06/25/18 06:00 - Labs Labs: 06/22/18 06:25 06/23/18 06:40 PT 30.6 SECONDS (9.4-12.5) H 06/25/18 06:00 INR 2.61 06/25/18 06:00 APTT 48.5 Seconds (25.1-36.5) H 06/20/18 07:30 Attending/Attestation - Attestation I have personally seen and examined this patient.: No I have fully participated in the care of the patient.: No I have reviewed all pertinent clinical information, including history, physical exam and plan: Yes Notes (Text): 06/28/18 06:53 Microbiology report seen.
== END 2018-06-25 23:44 | disposition short-term general hospital (02) | DRG 291 ==
LOC: ED 02:46 → ERH 05:40 → CCU 08:17 → 2RNO 06-24 14:10
PROVIDERS: ADMIT Internal Medicine; ATTEND Internal Medicine
PROC: 5A09357 Assistance with Respiratory Ventilation, Less than 24 Consecutive Hours, Continuous Positive Airway Pressure (ICD-10-PCS; principal; 2018-06-19)
PROC: 05HM33Z Insertion of Infusion Device into Right Internal Jugular Vein, Percutaneous Approach (ICD-10-PCS; 2018-06-19)
PROC: 3E0F7GC Introduction of Other Therapeutic Substance into Respiratory Tract, Via Natural or Artificial Opening (ICD-10-PCS; 2018-06-21)
DX: I50.23 Acute on chronic systolic (congestive) heart failure (principal); J18.1 Lobar pneumonia, unspecified organism; R57.0 Cardiogenic shock; B37.7 Candidal sepsis; I69.351 Hemiplegia and hemiparesis following cerebral infarction affecting right dominant side; I42.0 Dilated cardiomyopathy; N17.9 Acute kidney failure, unspecified; E27.40 Unspecified adrenocortical insufficiency; Q21.1 Atrial septal defect; M32.9 Systemic lupus erythematosus, unspecified; I48.2 Chronic atrial fibrillation; I48.0 Paroxysmal atrial fibrillation; D64.9 Anemia, unspecified; K21.9 Gastro-esophageal reflux disease without esophagitis; Z76.82 Awaiting organ transplant status; Z79.01 Long term (current) use of anticoagulants; Z86.718 Personal history of other venous thrombosis and embolism; Z86.711 Personal history of pulmonary embolism; Z95.810 Presence of automatic (implantable) cardiac defibrillator; Z87.891 Personal history of nicotine dependence; R79.1 Abnormal coagulation profile; Z98.891 History of uterine scar from previous surgery; Z80.0 Family history of malignant neoplasm of digestive organs